=== PATIENT | male | born 1945 | race Caucasian/White ===

== ENCOUNTER → 2019-12-15 09:39 | Outpatient (BNVA) | payer MEDICARE, OTHER, SELFPAY | PROVIDERS: PCP Internal Medicine; Visit Provider Urology | DX: N40.1 Benign prostatic hyperplasia with lower urinary tract symptoms (principal); R39.15 Urgency of urination; R35.1 Nocturia; C67.9 Malignant neoplasm of bladder, unspecified; N52.9 Male erectile dysfunction, unspecified; Z79.899 Other long term (current) drug therapy; Z79.2 Long term (current) use of antibiotics | CPT/HCPCS: 99212 ==

== ENCOUNTER → 2020-01-12 08:54 | Outpatient (BNVA) | payer MEDICARE, OTHER, SELFPAY | PROVIDERS: Visit Provider Urology | DX: R35.1 Nocturia (principal) | CPT/HCPCS: Q3014 ==

== ENCOUNTER → 2020-04-06 08:51 | Outpatient (BNVA) | payer MEDICARE, OTHER, SELFPAY | PROVIDERS: PCP Internal Medicine; Visit Provider Urology | DX: C67.9 Malignant neoplasm of bladder, unspecified (principal); R39.15 Urgency of urination | CPT/HCPCS: 52000; 81002; 99212 ==

== ENCOUNTER → 2020-05-04 14:24 | Outpatient (BNVA) | payer MEDICARE, OTHER, SELFPAY | PROVIDERS: PCP Internal Medicine; Visit Provider Urology | DX: Z13.89 Encounter for screening for other disorder (principal) | CPT/HCPCS: Q3014 ==

== ENCOUNTER → 2020-07-12 14:51 | Outpatient (BNVA) | payer MEDICARE, OTHER, SELFPAY | PROVIDERS: PCP Internal Medicine; Visit Provider Urology | DX: C67.9 Malignant neoplasm of bladder, unspecified (principal); R35.1 Nocturia; N40.1 Benign prostatic hyperplasia with lower urinary tract symptoms; N39.41 Urge incontinence; R35.0 Frequency of micturition; N52.9 Male erectile dysfunction, unspecified | CPT/HCPCS: 99212 ==

== ENCOUNTER 2020-09-09 09:05 | Emergency (ER) | payer OTHER, MEDICARE, SELFPAY ==
--- NOTE | ~2020-09-09 | XR_ITS ---
EXAMINATION: XR CHEST CLINICAL INFORMATION: Cough. Pneumonia? COMPARISON: None TECHNIQUE: Frontal view of the chest was obtained. FINDINGS: Lungs are well expanded and clear. No pulmonary mass, consolidation or pleural effusion. No acute findings. Cardiac silhouette has normal size and contour. A calcific density that projects over the right anterior third rib might represent calcified pleural plaque. The visualized bones are intact. Multilevel osteophyte formation of the spine. No evidence of fracture or malalignment at the degenerated joints of the shoulders. XR/XR chest 1V IMPRESSION: No acute cardiopulmonary disease. No evidence of pneumonia.
[2020-09-09 09:20] VITALS: BP 138/52; PULSE 86; RESP 18; TEMP 36.8; O2SAT 97; BMI 30.5
--- NOTE | 2020-09-09 09:58 | ED_ITS ---
HPI - URI/Sore Throat General Chief Complaint: Upper Respiratory Symptoms Stated Complaint: Flu-like symptoms Time Seen by Provider: 09/09/20 09:33 Source: patient Mode of arrival: ambulatory Limitations: no limitations History of Present Illness HPI Narrative: Patient presents to the ED for coughing, low-grade fever, chills, and body aches since . Patient came to ED to be tested to see if he had COVID. Patient is vaccinated for COVID virus. Patient denies any chest pain or shortness of breath Related Data Home Medications Medication Instructions Recorded Confirmed azelastine 137 mcg (0.1 %) nasal 2 spray INTRANASAL BID 12/15/19 12/15/19 spray aerosol doxycycline hyclate 100 mg tablet 100 mg PO ONCE 12/15/19 12/15/19 lidocaine-prilocaine 2.5 %-2.5 % g TOPICAL 12/15/19 12/15/19 topical cream meloxicam 15 mg tablet 15 mg PO DAILY 12/15/19 12/15/19 aspirin 325 mg tablet,delayed 325 mg PO BID 07/12/20 release celecoxib 200 mg capsule 200 mg PO DAILY 07/12/20 pantoprazole 40 mg tablet,delayed 40 mg PO DAILY 07/12/20 release Previous Rx's Medication Instructions Recorded amitriptyline 10 mg tablet 10 mg PO BEDTIME 30 Days #30 tab 04/09/20 mirabegron 25 mg tablet,extended 25 mg PO DAILY 90 Days #90 tab 05/04/20 release 24 hr (Myrbetriq) benzonatate 100 mg capsule 100 mg PO TID PRN #15 cap 09/09/20 (Tessalon Shoes) prednisone 20 mg tablet 60 mg PO DAILY 5 Days #15 tab 09/09/20 Allergies Allergy/AdvReac Type Severity Reaction Status Date / Time No Known Allergies Allergy Verified 07/25/20 14:14 [No Known Allergies*] Review of Systems Review of Systems: Yes all other systems are reviewed and are negative Constitutional: Constitutional: Reports as per HPI, Reports no additional constitutional complaints, Reports anorexia, Reports body ache(s) and Reports fever(s) Eyes: Eyes: Reports as per HPI and Reports no additional eye complaints ENT: Reports system reviewed and no additional complaints, except as documented Cardiovascular: Cardiovascular: Reports as per HPI, Reports no additional cardiovascular complaints, Denies chest pain and Denies dyspnea Respiratory: Respiratory: Reports as per HPI, Reports no additional respiratory complaints, Reports cough and Denies dyspnea Gastrointestinal: Gastrointestinal: Reports as per HPI and Reports no additional gastrointestinal complaints Musculoskeletal: Musculoskeletal: Reports no additional musculoskeletal complaints and Reports as per HPI Integumentary/Breasts: Skin/Breast: Reports system reviewed and no additional complaints, except as docu and Reports as per HPI FORMERLY [facility], [facility] Past Medical History Medical History (Updated 09/09/20 @ 10:50 by BRANDI Corbett) Bladder cancer Surgical History (Updated 09/09/20 @ 09:21 by Ana Mooney) History of total right hip replacement Social History Social History (System 07/25/20 @ 14:14 by Kimmie Milligan) Advance Directives: No Advance Directives Information Provided: No Physical Exam Vital Signs: Vital Signs: Last Vital Signs Temp 98.3 F 09/09/20 09:20 Pulse 86 09/09/20 09:20 Resp 18 09/09/20 09:20 BP 138/52 L 09/09/20 09:20 Pulse Ox 97 09/09/20 09:20 Body Mass Index 30.5 Const: General: cooperative, healthy appearing, comfortable, no acute distress, well developed, alert, awake and Physically active Orientation/consciousness: patient oriented x3 HENMT: Head: Yes normal to inspection, Yes No palpable skull fracture present, Yes normocephalic and No atraumatic Ears: hearing grossly normal bilaterally, external ears normal, TM's normal bilaterally, TM normal on the right, TM normal on the left, EAC's normal, mastoids normal and no periauricular adenopathy General nose exam: Normal external nose present and Normal nares present Face and sinus: Yes normal facial exam, Yes sinuses nontender and Yes face symmetric Mouth: Normal oral and palatal mucosa present and lip normal Throat: Yes posterior oropharynx normal, Yes tonsils normal and Yes uvula midline Eyes: General: appearance normal, both eyes and all related structures Neck: Neck: Yes normal visual inspection, Yes full ROM, Yes no lymphadeno suellen, Yes no meningeal signs, Yes trachea midline, Yes supple and No tender Chest: Chest palpation & inspection: normal inspection of the chest and normal palpation of entire chest wall Resp: Effort & Inspection: normal respiratory effort and able to speak in complete sentences Auscultation: wheezes expiratory wheezes Cardio: Jugular venous distension: no JVD Heart sounds: S1 normal heart sound present and S2 normal heart sound present GI: Inspection: Yes normal to inspection and No abdominal wall ecchymosis Palpation (GI): Soft to palpation, not firm, nontender, no guarding and not rigid : General: No CVA tenderness and Yes no CVA tenderness Back/Spine/Pelvis: Back: no CVA tenderness, No CVA tenderness and No back tenderness Skin: General skin exam: no rashes or lesions noted and elasticity normal Neuro: General: patient oriented x3, gait normal, no meningeal signs and CN's II-XI intact bilaterally Cranial nerves: Yes CN's II-XII intact bilaterally Extrem: Other: Lower extremities negative for swelling, pitting edema, calf tenderness General: Yes normal to inspection and Yes full ROM Course Course Course Narrative: Patient sent for chest x-ray and COVID swab sent. Reevaluation(s) Reevaluation #1: COVID swab and flu swab came back negative. Chest x-ray normal. Patient informed to use his albuterol inhaler at home. Discharge with steroids due to mild wheezing. Time: 10:47 MDM - URI/Sore Throat MDM Narrative Medical decision making narrative: URI. Asthma Lab Data Labs: Lab Results 09/09/20 Range/Units 09:40 Coronavirus (PCR) NEGATIVE (Negative) Influenza Type A (PCR) NEGATIVE (Negative) Influenza Type B (PCR) NEGATIVE (Negative) RSV RNA Qual (PCR) NEGATIVE (Negative) Discharge Plan Discharge Clinical Impression: Upper respiratory infection, Asthma Patient Disposition: Home, Self-Care Instructions: Asthma (ED), Upper Respiratory Infection (ED) Additional Instructions: Your chest x-ray came back negative for pneumonia. You came back negative for the flu and COVID. Please use your albuterol inhaler as needed you will be discharged with cough medication and steroids. Return to ED for any chest pain, shortness of breath, swelling of lower extremities, calf pain, coughing up blood, weakness, dizziness, intractable fever, chills, or any other concerning symptoms. Prescriptions: New prednisone 20 mg tablet 60 mg PO DAILY 5 Days Qty: 15 RF: 0 benzonatate [Tessalon Perles] 100 mg capsule 100 mg PO TID PRN (Reason: cough) Qty: 15 RF: 0 No Action amitriptyline 10 mg tablet 10 mg PO BEDTIME 30 Days Qty: 30 RF: 6 lidocaine-prilocaine 2.5-2.5 % cream topical RF: 0 meloxicam 15 mg tablet 15 mg PO DAILY RF: 0 doxycycline hyclate 100 mg tablet 100 mg PO ONCE RF: 0 azelastine 137 mcg (0.1 %) aerosol,spray 2 spray intranasal BID RF: 0 Myrbetriq 25 mg tablet extended release 24 hr 25 mg PO DAILY 90 Days Qty: 90 RF: 1 Referrals: Benny Ho MD [Primary Care Provider] - 2 days (URI. Chest x-ray and COVID came back negative) Interventions: ED Discharge Assessment Last Done: 09/09/20 11:02 Discharge Date/Time: 09/09/20 11:02 Print Language: Monegasque
[2020-09-09 10:36] LABS: Influenza A PCR NEGATIVE (Negative); Influenza B PCR NEGATIVE (Negative); Resp Syncy Virus RNA Qual PCR NEGATIVE (Negative); SARS COV2 PCR INHOUSE NEGATIVE (Negative)
== END 2020-09-09 11:02 | disposition home or self-care (01) ==
PROVIDERS: Physician Assistant; Emergency Provider Student in an Organized Health Care Education/Training Program; PCP Internal Medicine
DX: J06.9 Acute upper respiratory infection, unspecified (principal); M79.10 Myalgia, unspecified site; J45.909 Unspecified asthma, uncomplicated; R50.9 Fever, unspecified; Z20.822 Contact with and (suspected) exposure to COVID-19; Z79.899 Other long term (current) drug therapy
CPT/HCPCS: 0241U; 36415; 71045; 99283

== ENCOUNTER 2020-10-05 12:43 | Outpatient (REF) | payer MEDICARE, OTHER, SELFPAY ==
[2020-10-05 17:17] LABS: Urine Cytology See Pathology rpt
== END 2020-10-05 12:44 | disposition home or self-care (01) ==
LOC: HO.LNP 12:43
PROVIDERS: PCP Internal Medicine; Visit Provider Urology
DX: C67.9 Malignant neoplasm of bladder, unspecified (principal); N40.1 Benign prostatic hyperplasia with lower urinary tract symptoms
CPT/HCPCS: 52000; 88112; 99212

== ENCOUNTER 2021-04-05 12:39 | Outpatient (REF) | payer MEDICARE, OTHER, SELFPAY ==
[2021-04-05 15:44] LABS: Urine Cytology See Pathology rpt
== END 2021-04-05 12:40 | disposition home or self-care (01) ==
LOC: HO.LAB 12:39
PROVIDERS: PCP Internal Medicine; Visit Provider Urology
DX: C67.9 Malignant neoplasm of bladder, unspecified (principal); N39.0 Urinary tract infection, site not specified; R39.15 Urgency of urination; N52.9 Male erectile dysfunction, unspecified; N40.1 Benign prostatic hyperplasia with lower urinary tract symptoms
CPT/HCPCS: 52000; 87086; 87088; 87186; 88112; 99212

== ENCOUNTER → 2021-04-12 11:20 | Outpatient (BNVA) | payer OTHER, MEDICARE, SELFPAY | PROVIDERS: PCP Internal Medicine; Visit Provider Urology ==

== ENCOUNTER 2021-05-06 11:40 | Day surgery (SDC) | payer OTHER, SELFPAY ==
[2021-05-01 11:03] VITALS: BMI 30.5
--- NOTE | 2021-05-03 12:08 | P.CONAN_ITS ---
Documented by User: Chichi Albarran NP 05/03/21 12:09 HPI - Anesthesia Eval Consult details Narrative: 75yo M for Cystoscopy & Bladder Biopsy PMFSH Active Problems Active Problems: All Active Problems (Updated 05/01/21 @ 11:01 by Kathi Olson RN) BPH loc w urin obs/LUTS (Acute) Urinary urgency (Acute) Nocturia (Acute) Erectile dysfunction (Acute) Bladder cancer (Acute) Past Medical History Medical History Arthritis Asthma Bladder cancer COPD (chronic obstructive pulmonary disease) COVID-19 vaccine series completed GERD (gastroesophageal reflux disease) Hepatitis History of malaria History of post traumatic stress disorder Sleep apnea Venous insufficiency Surgical History Surgical History H/O colonoscopy Hx of bilateral hip replacements Hx of bladder repair surgery Hx of cystoscopy Social History Social History Are you a primary care team coordinator scheduler to a significant other at home: No Patient Tobacco Use Status: Never used Tobacco Use of substances other than those prescribed or required for medical reasons: No Have you been hit, kicked, punched, or otherwise hurt by someone within the past year? If so, by whom?: No Are you DNR?: No Advance Directives Information Provided: Yes (will bring copy DOS) Advance Directives on File: No Recently lost weight without trying: No Eating poorly because of decreased appetite: No Nutrition Risks: Surgical patient >75years Poor oral hygiene: No (fixed upper bridge) Meds Allergies Allergy/AdvReac Type Severity Reaction Status Date / Time No Known Allergies Allergy Verified 04/05/21 12:56 [No Known Allergies*] Home Medications Medication Instructions Recorded Confirmed Last Taken Type azelastine 137 mcg (0.1 %) nasal 2 spray INTRANASAL BID 12/15/19 05/01/21 Unknown History spray aerosol lidocaine-prilocaine 2.5 %-2.5 % g TOPICAL 12/15/19 12/15/19 Unknown History topical cream meloxicam 15 mg tablet 15 mg PO DAILY 12/15/19 05/01/21 Unknown History acetaminophen 500 mg tablet 1,000 mg PO Q6H PRN 05/01/21 05/01/21 Unknown History budesonide-formoterol HFA 160 1 puff INHALATION BID 05/01/21 05/01/21 05/06/21 07:00 History mcg-4.5 mcg/actuation aerosol inhaler (Symbicort) omeprazole 20 mg tablet,delayed 20 mg PO DAILY PRN 05/01/21 05/01/21 Unknown History release Fish Oil 2,800 mg PO DAILY 05/06/21 05/06/21 Unknown History Glucosamine 3,000 mg PO DAILY 05/06/21 05/06/21 Unknown History cholecalciferol (vitamin D3) 50 50 mcg PO DAILY 05/06/21 05/06/21 Unknown History mcg (2,000 unit) capsule (Vitamin D3) coenzyme Q10 100 mg capsule 300 mg PO DAILY 05/06/21 05/06/21 Unknown History (CoQ-10) Exam Exam Date and Time: May 03, 2021 1208 Height,Weight and Vital Signs: Height 6 ft Weight 102.058 kg Assessment and Plan Assessment Anesthesia Assessment: Chart Reviewed Documented by User: Ana Mak MD 05/06/21 12:17 [facility] Past Medical History Medical History Arthritis Asthma Bladder cancer COPD (chronic obstructive pulmonary disease) COVID-19 vaccine series completed GERD (gastroesophageal reflux disease) Hepatitis History of malaria History of post traumatic stress disorder Sleep apnea Venous insufficiency Family History Family history of problems with anesthesia: No Surgical History Surgical History H/O colonoscopy Hx of bilateral hip replacements Hx of bladder repair surgery Hx of cystoscopy History of Problems with Anesthesia: No Social History Social History Are you a primary care team coordinator scheduler to a significant other at home: No Patient Tobacco Use Status: Never used Tobacco Use of substances other than those prescribed or required for medical reasons: No Have you been hit, kicked, punched, or otherwise hurt by someone within the past year? If so, by whom?: No Are you DNR?: No Advance Directives Information Provided: Yes (will bring copy DOS) Advance Directives on File: No Recently lost weight without trying: No Eating poorly because of decreased appetite: No Nutrition Risks: Surgical patient >75years Poor oral hygiene: No (fixed upper bridge) Meds Allergies Allergy/AdvReac Type Severity Reaction Status Date / Time No Known Allergies Allergy Verified 04/05/21 12:56 [No Known Allergies*] Home Medications Medication Instructions Recorded Confirmed Last Taken Type azelastine 137 mcg (0.1 %) nasal 2 spray INTRANASAL BID 12/15/19 05/01/21 Unknown History spray aerosol lidocaine-prilocaine 2.5 %-2.5 % g TOPICAL 12/15/19 12/15/19 Unknown History topical cream meloxicam 15 mg tablet 15 mg PO DAILY 12/15/19 05/01/21 Unknown History acetaminophen 500 mg tablet 1,000 mg PO Q6H PRN 05/01/21 05/01/21 Unknown History budesonide-formoterol HFA 160 1 puff INHALATION BID 05/01/21 05/01/21 05/06/21 07:00 History mcg-4.5 mcg/actuation aerosol inhaler (Symbicort) omeprazole 20 mg tablet,delayed 20 mg PO DAILY PRN 05/01/21 05/01/21 Unknown History release Fish Oil 2,800 mg PO DAILY 05/06/21 05/06/21 Unknown History Glucosamine 3,000 mg PO DAILY 05/06/21 05/06/21 Unknown History cholecalciferol (vitamin D3) 50 50 mcg PO DAILY 05/06/21 05/06/21 Unknown History mcg (2,000 unit) capsule (Vitamin D3) coenzyme Q10 100 mg capsule 300 mg PO DAILY 05/06/21 05/06/21 Unknown History (CoQ-10) Exam Airway Mallampati Class: II (Upper perm bridge) TM Dist: >3cm Neck ROM: Full Heart: rrr Lungs: cta Assessment and Plan Assessment Anesthesia Assessment: Anesthesia Plan Discussed and Chart Reviewed Final Anesthetic Review Family History of Problems with Anesthesia: No History of Problems with Anesthesia: No NPO: Yes ASA Class: III Final Preanesthetic Review: No Changes in Pt Med Stat, Meds/Allgs Chart Reviewed and Consent Obtained/Reviewed Patient Risk: Intermediate Procedure Risk: Intermediate Anesthetic Plan Anesthetic Plan: GA Disposition: Standard PACU
[2021-05-06 11:59] VITALS: BP 134/70; PULSE 76; RESP 16; TEMP 36.7; O2SAT 94
[2021-05-06] MEDS: levoFLOXacin 500 MG TABLET PO (12:04)
[2021-05-06] MEDS: Lactated Ringers 1,000 ML 100 ML IVCONT (12:13)
--- NOTE | 2021-05-06 12:13 | PC.NURSE ---
md grijalva aware of patients holter monitor removed.
--- NOTE | 2021-05-06 12:52 | P.HPSUR_ITS ---
Pre-Procedural Eval Section A Date of Service: 05/06/21 The patient is an INPATIENT: No Changes since office visit: No Cold of Flu in the past 2 weeks, No New Medical Problems, No Changes in Medication and No Patient answered all questions The History & Physical has been completed within 30 days and I have reviewed it.: No Section B Chief Complaint: malignant neoplasm of bladder Details of Present Illness: recurrent superficial disease by prior resection Relevant Family History (Specify if Yes): No Relevant Social History: None Present Medications: see Short Stay Collaborative assessment Medical History: Significant History History of Previous Operations: Relevant previous surgery/procedure and date(s) Allergies: Allergies Allergy/AdvReac Type Severity Reaction Status Date / Time No Known Allergies Allergy Verified 04/05/21 12:56 [No Known Allergies*] Review of Systems Sugical H&P ROS: Negative: Constitution, Cardiovascular, Respiratory, Neur ological, Psychiatric, Hem-Onc, Allergic/Immunologic, Gastrointestinal, Genitourinary, Musculoskeletal, Integumentary, Endocrine and Eyes/Ears/Nose/Throat Exam Surgical H&P Exam: Normal: HEENT, Normal: Heart, Normal: Lungs, Normal: Extremities, Normal: Abdomen, Normal: Skin and Normal: Neurological Plan Diagnosis/Plan: Unchanged ( cystoscopy, bladder biopsy fulguration) I have reviewed the history and physical and performed a pertinent physical examination on my patient. No changes have occurred unless specified.
[2021-05-06 12:55] VITALS: BP 111/57; PULSE 72; RESP 16; TEMP 36.5; O2SAT 93
--- NOTE | 2021-05-06 12:55 | W.PM.OPN ---
Operative Note Operative Note Date of Service: 05/06/21 Narrative: PreOperative Diagnosis: bladder cancer Post Operative Diagnosis: bladder cancer Procedure: cystoscopy, bladder biopsy and fulguration Surgeon: Dr Hong Hester Anesthesia: general Indications for procedure: known superficial bladder cancer. On cystoscopy was seen to have an area approximately 3 cm of change mucosa close to prior TURBT site Procedure: After informed consent was verified the patient was brought to the operating room and placed in a supine position. anesthesia was administered per protocol. the patient was placed in a modified dorsal lithotomy position and prepped and draped in a sterile fashion. Safety pause time-out was performed. Antibiotics were confirmed. cystoscopy was performed. No abnormality noted of the anterior posterior urethra superficial change seen on mucosa by prior TURBT resection site on left sidewall. Biopsies were taken. Fulguration was performed over an area approximately 3 cm in diameter. The patient tolerated the procedure well. They were extubated in the operating room and transferred in stable condition to the recovery area. Pathology: Bladder biopsies Drains: none
[2021-05-06 13:10] VITALS: BP 111/54; PULSE 70; RESP 16; TEMP 36.3; O2SAT 94
== END 2021-05-06 14:01 | disposition home or self-care (01) ==
PROVIDERS: PCP Internal Medicine; Visit Provider Urology
PROC: (CPT 52235; principal; 2021-05-06 13:40)
DX: C67.9 Malignant neoplasm of bladder, unspecified (principal); N40.1 Benign prostatic hyperplasia with lower urinary tract symptoms; N32.81 Overactive bladder; R39.15 Urgency of urination; N52.9 Male erectile dysfunction, unspecified; J44.9 Chronic obstructive pulmonary disease, unspecified; G47.30 Sleep apnea, unspecified; K21.9 Gastro-esophageal reflux disease without esophagitis; Z79.51 Long term (current) use of inhaled steroids; Z79.899 Other long term (current) drug therapy; Z77.098 Contact with and (suspected) exposure to other hazardous, chiefly nonmedicinal, chemicals
CPT/HCPCS: 52235; 88305; J2250; J3010

== ENCOUNTER → 2021-05-15 12:41 | Outpatient (BNVA) | payer OTHER, SELFPAY | PROVIDERS: PCP Internal Medicine; Visit Provider Urology | DX: Z13.89 Encounter for screening for other disorder (principal) ==

== ENCOUNTER 2021-08-07 14:56 | Outpatient (REF) | payer OTHER, SELFPAY ==
[2021-08-07 16:32] LABS: Urine Cytology See Pathology rpt
== END 2021-08-07 14:57 | disposition home or self-care (01) ==
LOC: HO.LAB 14:56
PROVIDERS: Visit Provider Urology
DX: C67.9 Malignant neoplasm of bladder, unspecified (principal); N40.1 Benign prostatic hyperplasia with lower urinary tract symptoms; N52.9 Male erectile dysfunction, unspecified; R39.15 Urgency of urination
CPT/HCPCS: 52000; 88112; 99212

== ENCOUNTER 2021-11-07 10:04 | Outpatient (REF) | payer OTHER, SELFPAY ==
[2021-11-07 16:56] LABS: Urine Cytology See Pathology rpt
== END 2021-11-07 10:05 | disposition home or self-care (01) ==
LOC: HO.LAB 10:04
PROVIDERS: Visit Provider Urology
DX: C67.9 Malignant neoplasm of bladder, unspecified (principal)
CPT/HCPCS: 52000; 88112

== ENCOUNTER → 2022-02-05 08:29 | Outpatient (BNVA) | payer OTHER, SELFPAY | PROVIDERS: PCP Internal Medicine; Visit Provider Urology | DX: C67.9 Malignant neoplasm of bladder, unspecified (principal); N40.1 Benign prostatic hyperplasia with lower urinary tract symptoms; N13.8 Other obstructive and reflux uropathy; N52.9 Male erectile dysfunction, unspecified | CPT/HCPCS: 52000 ==

== ENCOUNTER 2022-05-06 09:28 | Outpatient (REF) | payer OTHER, SELFPAY ==
[2022-05-06 17:48] LABS: Urine Cytology See Pathology rpt
== END 2022-05-06 09:29 | disposition home or self-care (01) ==
LOC: HO.LAB 09:28
PROVIDERS: PCP Internal Medicine; Visit Provider Urology
DX: C67.9 Malignant neoplasm of bladder, unspecified (principal); N40.1 Benign prostatic hyperplasia with lower urinary tract symptoms; N52.9 Male erectile dysfunction, unspecified; Z77.29 Contact with and (suspected) exposure to other hazardous substances
CPT/HCPCS: 52000; 88112; 99212

== ENCOUNTER 2022-07-05 11:05 | Emergency (ER) | payer OTHER, SELFPAY ==
--- NOTE | ~2022-07-05 | CT_ITS ---
EXAMINATION: CT HEAD WITHOUT CONTRAST CLINICAL INFORMATION: New onset dizziness COMPARISON: None available. TECHNIQUE: Contiguous axial imaging was performed from the skull base to vertex without intravenous administration of contrast. This CT examination was performed using dose optimization techniques as appropriate, variously including the following: *Automated exposure control *Adjustment of mA and/or kV according to patient size (this includes techniques or standardized protocols for targeted exams where dose is matched to indication/reason for exam; i.e. extremities or head) *Use of iterative reconstruction technique DLP: 772 mGy-cm FINDINGS: There is no evidence of acute intracranial hemorrhage or edematous territorial infarction. No abnormal mass effect or midline shift is seen. Davis to white matter differentiation is well preserved. No pathological extra-axial fluid collections are identified. The ventricles are normal in size. No abnormal attenuation in the brain parenchyma. No acute calvarial fracture.. Paranasal sinuses and mastoid air cells are well-aerated. CT/CT head/brain wo IV con IMPRESSION: No CT evidence of acute intracranial hemorrhage or edematous large vessel territorial infarction. Etiology of patient's symptoms has not been determined by noncontrast CT.
--- NOTE | 2022-07-05 11:15 | ECG_ITS ---
Test Reason : dizziness Blood Pressure : / mmHG Vent. Rate : 053 BPM Atrial Rate : 053 BPM P-R Int : 178 ms QRS Dur : 098 ms QT Int : 412 ms P-R-T Axes : 041 -09 039 degrees QTc Int : 386 ms Sinus bradycardia Otherwise normal ECG When compared with ECG of 17-DEC-2001 08:09, No significant change was found Referred By: Shadi Buck Electronically Signed By:BERNICE PORTER
--- NOTE | 2022-07-05 11:15 | ED_ITS ---
HPI - Dizziness General Chief Complaint: Stroke Stated Complaint: Numbness/tingling in hands, dizzy per EMS Time Seen by Provider: 07/05/22 11:14 Source: patient Mode of arrival: EMS Limitations: no limitations History of Present Illness HPI Narrative: Patient with history of bladder cancer otherwise healthy comes for sudden onset of vertiginous feeling started about an hour prior to arrival. Patient feels everything is spinning associated with nausea and poor balance and mild headache no fever no chills no speech problem no tremors or shaking this or focal weakness Related Data Home Medications Medication Instructions Recorded Confirmed azelastine 137 mcg (0.1 %) nasal 2 spray intranasal BID 12/15/19 12/26/21 spray aerosol meloxicam 15 mg tablet 15 mg PO DAILY 12/15/19 12/26/21 acetaminophen 500 mg tablet 1,000 mg PO Q6H PRN Pain 05/01/21 12/26/21 budesonide-formoterol HFA 160 1 puff inhalation BID 05/01/21 12/26/21 mcg-4.5 mcg/actuation aerosol inhaler (Symbicort) omeprazole 20 mg tablet,delayed 20 mg PO DAILY PRN Heartburn 05/01/21 12/26/21 release Fish Oil 2,800 mg PO DAILY 05/06/21 12/26/21 Glucosamine 3,000 mg PO DAILY 05/06/21 12/26/21 cholecalciferol (vitamin D3) 50 50 mcg PO DAILY 05/06/21 12/26/21 mcg (2,000 unit) capsule (Vitamin D3) coenzyme Q10 100 mg capsule 300 mg PO DAILY 05/06/21 12/26/21 (CoQ-10) metoprolol succinate 25 mg 25 mg PO DAILY 08/07/21 12/26/21 tablet,extended release 24 hr Previous Rx's Medication Instructions Recorded sildenafil 100 mg tablet 100 mg PO DAILY PRN sexual 04/05/21 activity 90 days #12 tabs ciprofloxacin HCl 500 mg tablet 500 mg PO BID 5 days #10 tabs 07/02/22 meclizine 25 mg tablet 25 mg PO TID PRN dizziness #20 tabs 07/05/22 Allergies Allergy/AdvReac Type Severity Reaction Status Date / Time No Known Allergies Allergy Verified 07/05/22 11:56 [No Known Allergies*] Review of Systems Review of Systems: Yes all other systems are reviewed and are negative PMFSH Past Medical History Medical History Arthritis Asthma Bladder cancer COPD (chronic obstructive pulmonary disease) COVID-19 vaccine series completed GERD (gastroesophageal reflux disease) Hepatitis History of malaria History of post traumatic stress disorder Sleep apnea Venous insufficiency Surgical History H/O colonoscopy Hx of bilateral hip replacements Hx of bladder repair surgery Hx of cystoscopy Social History Social History Are you a primary healthcare social worker to a significant other at home: No Alcohol intake: current Alcohol intake frequency: holidays/special occasions only Alcohol type: beer Patient Tobacco Use Status: Never used Tobacco Smoked in Last 30 Days: No Use of substances other than those prescribed or required for medical reasons: No Advance Directives: No Advance Directives Information Provided: Yes Physical Exam Vital Signs: Vital Signs: Last Vital Signs Temp 97.7 F 07/05/22 13:24 Pulse 75 07/05/22 13:24 Resp 16 07/05/22 13:24 BP 139/82 07/05/22 13:24 Pulse Ox 97 07/05/22 13:24 O2 Del Method Room Air 07/05/22 13:24 BMI result Body Mass Index 33.3 Appearance: Alert. Oriented X3. No acute distress. Eyes: PERRLA, No Nystagmus increased dizziness on movements of the head ENT: Pharynx normal. Oral Mucosa moist Neck: Normal inspection. Neck supple. CVS: Normal heart rate and rhythm. Pulses normal. Respiratory: No respiratory distress. Equal air entry bilateral, no wheezing/rales/rhonchi Abdomen: Soft and nontender. Bowel sounds are present, no mass palpable, no CVA tenderness Skin: Skin warm and dry. Normal skin color. Normal skin turgor. Extremities: No lower extremity edema. No calf tenderness Neuro: Oriented X 3. No motor deficit. No sensory deficit.No cerebellar signs , cranial nerves II-XII intact NIH Stroke Scale Internal: Initial- Upon Arrival Level of Consciousness: Alert Level of Consciousness Questions: Answers both questions correctly Level of Consciousness Commands: Performs both tasks correctly Best Gaze: Normal Visual: No visual loss Facial Palsy: Normal Motor Arm (Right): No drift Motor Arm (Left): No drift Motor Leg (Right): No drift Motor Leg (Left): No drift Limb Ataxia: Absent Sensory: Normal Best Language: No aphasia Dysarthia: Normal Extinction and Inattention: No abnormality Score: 0 Medications Administered Discontinued Medications Generic Name Dose Route Start Last Admin Trade Name Freq PRN Reason Stop Dose Admin Sodium Chloride 1,000 mls @ 999 mls/hr 07/05/22 11:15 07/05/22 13:17 Ns IV 07/05/22 12:15 Infused .Q1H1M ONE Infusion Lorazepam 1 mg 07/05/22 12:22 07/05/22 13:16 Lorazepam 2 Mg/Ml Vial IVPUSH 07/05/22 12:23 1 mg ONCE ONE Administration Meclizine HCl 50 mg 07/05/22 11:16 07/05/22 11:52 Meclizine Hcl 25 Mg Tablet PO 07/05/22 11:17 50 mg ONCE ONE Administration Medical Decision Making Medical Decision Making MDM Narrative: Patient likely with benign positional vertigo no signs of. 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 07/05/22 11:46 07/05/22 11:46 Labs: Lab Results 07/05/22 07/05/22 07/05/22 Range/Units 11:33 11:46 11:46 WBC 10.2 (4.8-10.8) X10*3/uL RBC 5.17 (4.60-5.80) X10*6/uL Hgb 16.1 (14.0-18.0) g/dl Hct 48.2 (42.0-52.0) % MCV 93.2 (80.0-98.0) fL MCH 31.1 (27.0-33.0) pg MCHC 33.4 (31.0-36.0) g/dl RDW 13.6 (11.0-16.0) % Plt Count 229 (160-400) X10*3/uL MPV 8.8 L (9.4-12.4) fL Immature Gran % (Auto) 0.6 H (0.0-0.4) % Neut % (Auto) 76.6 H (45-73) % Lymph % (Auto) 13.6 L (20-40) % [place] % (Auto) 8.0 (2-11) % Eos % (Auto) 0.9 (0-4) % Baso % (Auto) 0.3 (0-2) % Lymph # (Auto) 1.4 (1.2-4.9) X10*3/uL [place] # (Auto) 0.8 (0.1-1.2) X10*3/uL Eos # (Auto) 0.1 (0.0-0.4) X10*3/uL Baso # (Auto) 0.0 (0.0-0.2) X10*3/uL Abs Immat Gran (auto) 0.06 H (0.00-0.03) X10*3/uL Absolute Neuts (auto) 7.8 (2.0-8.3) x10*3/uL Absolute Nucleated RBC 0.000 (0.0-0.012) X10*3/uL Nucleated RBC % (auto) 0.0 (0.0-0.2) /100WBC Sodium 140 (135-145) mmol/L Potassium 4.8 (3.3-5.1) mmol/L Chloride 107 (96-108) mmol/L Carbon Dioxide 25 (22-29) mmol/L Anion Gap 13 (12-20) BUN 28 H (9-16) mg/dL Creatinine 0.95 (0.5-1.4) mg/dL Estim Creat Clear Calc 79.1 Estimated GFR > 60 POC Glucose 104 (60-115) mg/dL Random Glucose 98 (60-115) mg/dL Calcium 9.5 (8.4-10.2) mg/dL Magnesium 2.2 (1.6-2.6) mg/dL Total Bilirubin 1.1 H (0.0-1.0) mg/dL AST 23 (5-37) U/L ALT 33 (0-40) U/L Alkaline Phosphatase 107 (39-117) U/L Total Protein 7.1 (6.5-8.0) g/dL Albumin 4.2 (3.5-5.0) g/dL Discharge Plan Discharge Clinical Impression: Benign paroxysmal positional vertigo Patient Disposition: Home, Self-Care Instructions: Benign Paroxysmal Positional Vertigo (ED) Additional Instructions: Care and cautions as advised Meclizine 1 tablet every 8 hours as needed Drink plenty of fluids and follow with PCP Prescriptions: New meclizine 25 mg tablet 25 mg PO TID PRN (Reason: dizziness) Qty: 20 0RF No Action ciprofloxacin HCl 500 mg tablet 500 mg PO BID 5 Days Qty: 10 0RF budesonide-formoterol [Symbicort] 160-4.5 mcg/actuation Hfa Aerosol Inhaler 1 puff INHALATION BID omeprazole 20 mg Tablet,Delayed Release (Dr/Ec) 20 mg PO DAILY PRN (Reason: Heartburn) acetaminophen 500 mg Tablet 1,000 mg PO Q6H PRN (Reason: Pain) coenzyme Q10 [CoQ-10] 100 mg Capsule 300 mg PO DAILY cholecalciferol (vitamin D3) [Vitamin D3] 50 mcg (2,000 unit) Capsule 50 mcg PO DAILY Fish Oil 2,800 mg PO DAILY Glucosamine 3,000 mg PO DAILY meloxicam 15 mg tablet 15 mg PO DAILY azelastine 137 mcg (0.1 %) aerosol,spray 2 spray intranasal BID sildenafil 100 mg tablet 100 mg PO DAILY PRN (Reason: sexual activity) 90 Days Qty: 12 1RF Rx Instructions: administer 60 minutes before intended activity metoprolol succinate 25 mg tablet extended release 24 hr 25 mg PO DAILY Interventions: ED Discharge Assessment Last Done: 07/05/22 13:54 Discharge Date/Time: 07/05/22 13:59
[2022-07-05 11:17] VITALS: BP 141/71; PULSE 60; O2SAT 96; BMI 33.3
[2022-07-05 11:36] LABS: Glucose, Whole Blood 104 mg/dL (60-115)
[2022-07-05 11:49] LABS: MANUAL DIFF FLAG NO
[2022-07-05 11:50] LABS: Basophils Percent Auto 0.3 % (0-2); Eosinophils Absolute Auto 0.1 X10*3/uL (0.0-0.4); Eosinophils Percent Auto 0.9 % (0-4); Hematocrit 48.2 % (42.0-52.0); Hemoglobin 16.1 g/dl (14.0-18.0); Imm Gran Abs Auto 0.06 X10*3/uL (0.00-0.03); Imm Gran Pct Auto 0.6 % (0.0-0.4); Lymphocytes Absolute Auto 1.4 X10*3/uL (1.2-4.9); Lymphocytes Percent Auto 13.6 % (20-40); Mean Corpuscular HGB Conc 33.4 g/dl (31.0-36.0); Mean Corpuscular Hemoglobin 31.1 pg (27.0-33.0); Mean Corpuscular Volume 93.2 fL (80.0-98.0); Mean Platelet Volume 8.8 fL (9.4-12.4); Monocytes Absolute Auto 0.8 X10*3/uL (0.1-1.2); Neutrophils Absolute Auto 7.8 x10*3/uL (2.0-8.3); Neutrophils Percent Auto 76.6 % (45-73); Platelet Count 229 X10*3/uL (160-400); Red Blood Count 5.17 X10*6/uL (4.60-5.80); Red Cell Distribution Width 13.6 % (11.0-16.0); White Blood Count 10.2 X10*3/uL (4.8-10.8)
[2022-07-05] MEDS: 0.9 % Sodium Chloride 1,000 ML 999 ML IV (11:50)
[2022-07-05] MEDS: Meclizine HCl 25 MG TABLET 50 MG PO (11:52)
[2022-07-05 12:20] LABS: Alanine Aminotransferase 33 U/L (0-40); Albumin Level 4.2 g/dL (3.5-5.0); Alkaline Phosphatase 107 U/L (39-117); Anion Gap 13 (12-20); Aspartate Amino Transferase 23 U/L (5-37); Bilirubin Total 1.1 mg/dL (0.0-1.0); Blood Urea Nitrogen 28 mg/dL (9-16); Calcium 9.5 mg/dL (8.4-10.2); Carbon Dioxide 25 mmol/L (22-29); Chloride 107 mmol/L (96-108); Creatinine Clr Calc Pharmacy 79.1; Estimated Glomerular Filt Rate > 60; Glucose Random 98 mg/dL (60-115); Magnesium 2.2 mg/dL (1.6-2.6); Potassium 4.8 mmol/L (3.3-5.1); Sodium 140 mmol/L (135-145); Total Protein 7.1 g/dL (6.5-8.0)
[2022-07-05] MEDS: LORazepam 2 MG/ML VIAL 1 MG IVPUSH (13:16)
[2022-07-05 13:24] VITALS: BP 139/82; PULSE 75; RESP 16; TEMP 36.5; O2SAT 97
--- NOTE | 2022-07-05 13:32 | PC.NURSE ---
Does not need a swallow eval per MD
--- NOTE | 2022-07-05 13:38 | PC.NURSE ---
patient ambulated well with tech and only stated that he felt a little dizzy reported to
== END 2022-07-05 13:59 | disposition home or self-care (01) ==
PROVIDERS: Emergency Provider Internal Medicine
DX: H81.10 Benign paroxysmal vertigo, unspecified ear (principal); Z79.899 Other long term (current) drug therapy
CPT/HCPCS: 36415; 70450; 80053; 82947; 83735; 85025; 93005; 96361; 96374; 99284; 99285; J2060

== ENCOUNTER 2022-10-27 06:04 | Day surgery (SDC) | payer OTHER, SELFPAY ==
[2022-07-31 14:01] VITALS: BMI 32.5
[2022-10-27] VITALS (7 sets, daily range): BP systolic 124–142; BP diastolic 55–81; PULSE 68–80; RESP 14–18; TEMP 36.1–36.6; O2SAT 94–96
[2022-10-27] MEDS: Albuterol Sulfate (0.083%) 2.5 MG/3 ML VIAL.NEB INHALE (07:12)
[2022-10-27] MEDS: Lactated Ringers 1,000 ML 100 ML IVCONT (07:24)
--- NOTE | 2022-10-27 07:29 | P.CONAN_ITS ---
HPI - Anesthesia Eval Consult details Narrative: for laser prostate PMFSH Active Problems Active Problems: All Active Problems (Updated 07/06/22 @ 00:00 by Background Rosa) Recurrent UTI (Acute) BPH loc w urin obs/LUTS (Acute) Urinary urgency (Acute) Nocturia (Acute) Erectile dysfunction (Acute) Bladder cancer (Acute) Past Medical History Medical History Arthritis Asthma Bladder cancer COPD (chronic obstructive pulmonary disease) COVID-19 vaccine series completed GERD (gastroesophageal reflux disease) Hepatitis History of malaria History of post traumatic stress disorder Sleep apnea Venous insufficiency Family History Family history of problems with anesthesia: No Surgical History Surgical History H/O colonoscopy Hx of bilateral hip replacements Hx of bladder repair surgery Hx of cystoscopy History of Problems with Anesthesia: No Social History Social History Are you a primary child care centre director to a significant other at home: No Do you presently have visiting nurse or other home services: No Alcohol intake: current Alcohol intake frequency: holidays/special occasions only Alcohol type: beer Patient Tobacco Use Status: Never used Tobacco Have you been hit, kicked, punched, or otherwise hurt by someone within the past year? If so, by whom?: No Are you DNR?: No Advance Directives: No Advance Directives Information Provided: Yes Recently lost weight without trying: No Eating poorly because of decreased appetite: No Nutrition Risks: No Nutritional Risk Poor oral hygiene: No Meds Allergies Allergy/AdvReac Type Severity Reaction Status Date / Time No Known Allergies Allergy Verified 07/05/22 11:56 [No Known Allergies*] Active Medications: Current Medications Lactated Ringer's (Lr) 1,000 mls @ 100 mls/hr IVCONT .Q10H NATALY Last Admin: 10/27/22 07:24 Dose: 100 mls/hr Home Medications Medication Instructions Recorded Confirmed Last Taken Type azelastine 137 mcg (0.1 %) nasal 2 spray intranasal BID 12/15/19 12/26/21 Unknown History spray aerosol meloxicam 15 mg tablet 15 mg PO DAILY 12/15/19 12/26/21 Unknown History acetaminophen 500 mg tablet 1,000 mg PO Q6H PRN Pain 05/01/21 12/26/21 Unknown History budesonide-formoterol HFA 160 1 puff inhalation BID 05/01/21 12/26/21 05/06/21 07:00 History mcg-4.5 mcg/actuation aerosol inhaler (Symbicort) omeprazole 20 mg tablet,delayed 20 mg PO DAILY PRN Heartburn 05/01/21 12/26/21 Unknown History release Fish Oil 2,800 mg PO DAILY 05/06/21 12/26/21 Unknown History Glucosamine 3,000 mg PO DAILY 05/06/21 12/26/21 Unknown History cholecalciferol (vitamin D3) 50 50 mcg PO DAILY 05/06/21 12/26/21 Unknown History mcg (2,000 unit) capsule (Vitamin D3) coenzyme Q10 100 mg capsule 300 mg PO DAILY 05/06/21 12/26/21 Unknown History (CoQ-10) metoprolol succinate 25 mg 25 mg PO DAILY 08/07/21 12/26/21 Unknown History tablet,extended release 24 hr Exam Exam Date and Time: October 27, 2022 0729 Height,Weight and Vital Signs: Height 5 ft 10.5 in Weight 104.326 kg Last Vital Signs Temp 97.2 F 10/27/22 06:14 Pulse 68 10/27/22 06:14 Resp 18 10/27/22 06:14 BP 135/70 10/27/22 06:14 Pulse Ox 94 10/27/22 06:14 O2 Del Method Room Air 10/27/22 06:14 Airway Mallampati Class: II TM Dist: >3cm Neck ROM: Full Loose/Missing/Broken Teeth: No Heart: ok Lungs: ok Assessment and Plan Assessment Anesthesia Assessment: Anesthesia Plan Discussed and Chart Reviewed Final Anesthetic Review Family History of Problems with Anesthesia: No History of Problems with Anesthesia: No NPO: Yes ASA Class: III Final Preanesthetic Review: No Changes in Pt Med Stat, Meds/Allgs Chart Reviewed, Consent Obtained/Reviewed and Anes Risks/Benef Reviewed Patient Risk: Intermediate Procedure Risk: Low Anesthetic Plan Anesthetic Plan: GA and Agree w/ Assess. and Plan Disposition: Standard PACU
--- NOTE | 2022-10-27 07:49 | MHC.SHP ---
Pre-Procedural Eval Section A Date of Service: 10/27/22 The patient is an INPATIENT: No Changes since office visit: No Cold of Flu in the past 2 weeks, No New Medical Problems, No Changes in Medication and No Patient answered all questions The History & Physical has been completed within 30 days and I have reviewed it.: Yes Section B Chief Complaint: Benign prostatic hyperplasia lower urinary tract Details of Present Illness: BPH and CIS Allergies: Allergies Allergy/AdvReac Type Severity Reaction Status Date / Time No Known Allergies Allergy Verified 07/05/22 11:56 [No Known Allergies*] Review of Systems Sugical H&P ROS: Negative: Constitution, Cardiovascular, Respiratory, Neurological, Psychiatric, Hem-Onc, Allergic/Immunologic, Gastrointestinal, Genitourinary, Musculoskeletal, Integumentary, Endocrine and Eyes/Ears/Nose/Throat Exam Surgical H&P Exam: Normal: HEENT, Normal: Heart, Normal: Lungs, Normal: Extremities, Normal: Abdomen, Normal: Skin and Normal: Neurological Plan Diagnosis/Plan: Unchanged (Laser procedure prostate) I have reviewed the history and physical and performed a pertinent physical examination on my patient. No changes have occurred unless specified. Time Spent With Patient Time: Total time managing care of this patient today ____ minutes.
--- NOTE | 2022-10-27 08:48 | W.PM.OPN ---
Operative Note Operative Note Date of Service: 10/27/22 Narrative: PreOperative Diagnosis: recurrent Bladder outlet obstruction Post Operative Diagnosis: recurent Bladder outlet obstruction Procedure: GreenLight Laser Enucleation of the prostate Surgeon: Dr Hong Hester Anesthesia: General Indications for procedure: recurrent BPH History of bladder outlet obstruction. Treated with alpha-khris and other medications. Still with symptoms. On cystoscopy in office has [trilobar prostate] [tight bladder neck]. Recommendation for prostate procedure with laser enucleation of prostate. Risks and benefits have been discussed. Focus was placed on development of retrograde ejaculation which is a normal part of this procedure. Procedure: After informed consent was verified the patient was brought to the operating room and placed in a supine position. Anesthesia was administered per protocol. Patient was placed in modified dorsal lithotomy position and prepped and draped in a sterile fashion. Safety pause time-out was confirmed. Antibiotics have been given. A Twenty-four [place] laser cystoscope was inserted per urethra. No abnormalities were found of the anterior and bulbar urethra. The bladder was examined and both ureteric orifices were seen in their normal positions away from the area of interest. Prior TURP visible. Tight bladder neck with right lateral tissue impingement Grade 2 trabeculation present. No bladder lesions. Using a GreenLight laser with settings of 80 w incisions were made at the 5 and 7 o'clock position. The incisions were taken down from the bladder neck down to the level of the veru. Starting with the patient's right lateral lobe. First the 05:00 o'clock groove was further developed. This was moved in the lateral direction to undermine the tissue on the lateral side running from the bladder neck to the prostate apex. After the majority of tissue had been debulked remnant tissue was ablated with the side fire laser and the curve of the prostate followed up each side wall. When this was had been completed debris and pieces of prostate were removed from the bladder with irrigation. Both ureteric orifices were reviewed again in shown to be patent in away from any areas of energy damage. The apical area was reviewed in any stray ooze was controlled. A 22 [place] 30 cc balloon Boone catheter was placed over a stylet into the bladder. Clear efflux was obtained upopn irrigation with a Mc piston syringe. 30 cc was placed in the balloon and gentle traction was placed. A snap was used to hold tension on the catheter to control bleeding during patient moved and transported. A drainage bag was placed. Once transportation is complete to the PACU the snap will be removed. The patient tolerated the procedure well, he was extubated in the operating and transferred in a stable condition to the recovery area. Total Power 21.7 kW Lasing time 3:37 Pathology: Prostate tissue Drains: Boone catheter
[2022-10-27] MEDS: Acetaminophen 325 MG TABLET 975 MG PO (09:07)
== END 2022-10-27 09:41 | disposition home or self-care (01) ==
PROVIDERS: PCP Internal Medicine; Visit Provider Urology
PROC: (CPT 52648; principal; 2022-10-27 07:30)
DX: N40.1 Benign prostatic hyperplasia with lower urinary tract symptoms (principal); C67.9 Malignant neoplasm of bladder, unspecified; N13.8 Other obstructive and reflux uropathy; R39.15 Urgency of urination; R35.1 Nocturia; N52.9 Male erectile dysfunction, unspecified; J44.9 Chronic obstructive pulmonary disease, unspecified; K21.9 Gastro-esophageal reflux disease without esophagitis; G47.30 Sleep apnea, unspecified
CPT/HCPCS: 52649; J1956; J3010

== ENCOUNTER → 2022-10-27 06:04 | Outpatient (BNV) | payer OTHER, SELFPAY | PROVIDERS: PCP Internal Medicine; Visit Provider Urology | DX: N32.0 Bladder-neck obstruction (principal) | CPT/HCPCS: 52649 ==

== ENCOUNTER 2022-10-30 09:43 | Outpatient (AMB) | payer OTHER, SELFPAY ==
--- NOTE | 2022-10-30 10:08 | AM.OFFVISNUR ---
Intake Intake Visit Reasons: voiding trial (greenlight) Allergies No Known Allergies [No Known Allergies*] Allergy (Verified 07/05/22 11:56) Office Procedures Bladder/Catheter Procedure Details: pt presents to office for voiding trial s/p greenlight laser prostatectomy. 120 mls sterile water instilled into bladder, 22 fr cath removed, pt tolerated removal well. bladder scanned for 0 mls. advised increased fluid intake today, call office by 2 pm if unable or having difficulty urinating, pt agreeable. [address] Aguilar [id number] of Bladder Procedure code (CPT) selection complete Post Void Residual Post Residual Void Post Void Residual (PVR): 0 [id number] Void Residual by ultrasound Coding CPT Codes Bladder/Catheter Procedure - CPT: 68086-Ekujbxiwzx of Bladder ([id number]) Post Residual Void - PVR CPT Code: 18795-Qnbu Void Residual by ultrasound ([id number]) Assessment & Plan Assessment & Plan Orders: Orders AMB Bladder/Catheter Procedure Today N40.1 - Benign prostatic hyperplasia with lower urinary tract symptoms AMB Post Void Residual by ultrasound Today N40.1 - Benign prostatic hyperplasia with lower urinary tract symptoms
== END 2022-10-30 10:33 | disposition home or self-care (01) ==
PROVIDERS: PCP Internal Medicine; Visit Provider Urology
DX: N40.1 Benign prostatic hyperplasia with lower urinary tract symptoms (principal)

== ENCOUNTER → 2022-10-30 09:43 | Outpatient (BNVA) | payer OTHER, SELFPAY | PROVIDERS: PCP Internal Medicine; Visit Provider Urology | DX: N40.1 Benign prostatic hyperplasia with lower urinary tract symptoms (principal); N13.8 Other obstructive and reflux uropathy | CPT/HCPCS: 51700; 51798 ==

== ENCOUNTER 2022-12-09 10:32 | Outpatient (AMB) | payer OTHER, SELFPAY ==
--- NOTE | 2022-12-09 10:54 | MHC.OFFVIS ---
Intake Intake Visit Reasons: 6w/greenlight post-op Intake Note: Patient is Present for Follow Up Greenlight Urology Medication: Sildenafil Antibiotic Allergies: None Blood Thinners: None Pharmacy: [facility] Allergies No Known Allergies [No Known Allergies*] Allergy (Verified 12/09/22 10:56) HPI HPI Comments History of Present Illness Details Atul is a very pleasant male. He is a patient of Dr. Ho. He is here for the following urologic conditions - bladder cancer - lower urinary tract symptoms - erectile dysfunction Happy with current voiding parameters Continue with bladder surveillance Lower Urinary Tract Symptoms: Current visit is for further evaluation of, lower urinary tract symptoms, predominate irritative symptoms. 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 - redo GLP 11/01 Prostate Symptom Score Moderate (9-19), Bother 3. - has noticed symptoms have mild improvement with sleep apnea machine - leakage requiring use of pads Bladder Cancer: 04/2016 TURP high-grade noninvasive, 05/30 Recurrent High Grade with CIS Recurrent 04/30 High Grade Bladder cancer was initially diagnosed 04/25 - during evaluation for gross hematuria. 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 Bladder cancer risk factors Organic Solvent exposure Yes Agent [place], [place], toxin from flame throw smoking No hair dye exposure No use of pioglitazone No chronic cystitis No prior chemotherapy with cyclophosphamide No family history of bladder cancer No pelvic radiation No Prior Cystoscopy 07/26 , Negative 10/26 , Negative, 02/26, Negative, 05/27, , Negative, 01/26 NAD, 05/28 , 09/27, 03/31, 09/28, 04/01, 09/29, 01/29, 04/30 Prior Cytology 04/25 , Abnormal, NAD, 05/28, 03/31, 10/30, 07/31 Occasional atypical, 10/31 Negative Previous intravesical therapy 04/25 , BCG Induction, 10/26 boost, 06/26 , BCG Maintanence - 05/31 Gemcitabine induction, 10/31 boost 3 weeks Erectile dysfunction: He presents today for for continued evaluation and management of erectile dysfunction. Symptoms have been present for/since ongoing. PFSH Medical History History of malaria COVID-19 vaccine series completed Arthritis Venous insufficiency Hepatitis Sleep apnea COPD (chronic obstructive pulmonary disease) History of post traumatic stress disorder GERD (gastroesophageal reflux disease) Asthma Bladder cancer Surgical History Hx of bladder repair surgery Hx of bilateral hip replacements Hx of cystoscopy H/O colonoscopy Social History Are you a primary care asst to a significant other at home: No Do you presently have visiting nurse or other home services: No Alcohol intake: current Alcohol intake frequency: holidays/special occasions only Alcohol type: beer Patient Tobacco Use Status: Never used Tobacco Review of Systems Const Denies chills and Denies fever(s) Card Reports no additional complaints and Denies syncope Resp Denies cough GI Denies abdominal pain and Denies heartburn Reports as per HPI and Denies change in libido Neuro Denies syncope Psych Denies change in libido Endo Denies change in libido Physical Exam Const General: cooperative, healthy appearing, comfortable and no acute distress Orientation/consciousness: patient oriented x3 HEENT Face and sinus: Yes normal facial exam Mouth: moist mucous membranes Neck Neck: Yes normal visual inspection, Yes full ROM and Yes trachea midline Chest Chest palpation & inspection: normal inspection of the chest Resp Effort & Inspection: normal respiratory effort, able to speak in complete sentences and no respiratory distress GI Inspection: Yes normal to inspection Back/Spine/Pelvis Cervical Spine: normal cervical lordosis Thoracic/Lumbar Spine: thoracic and lumbar spine normal to inspection Skin General skin exam: no rashes or lesions noted Neuro General: patient oriented x3, gait normal, tone normal and moves all extremities Extrem General: Yes normal to inspection and Yes capillary refill normal Assessment & Plan Assessment & Plan (1) Bladder cancer: Comment: High-grade 2018 superficial, 05/31 recurrent superficial high-grade with CIS Code(s): C67.9 - Malignant neoplasm of bladder, unspecified (2) BPH loc w urin obs/LUTS: Code(s): N40.1 - Benign prostatic hyperplasia with lower urinary tract symptoms Plan Four month follow-up cystoscopy Patient Instructions: Imaging studies, laboratory and physical exam results were discussed and reviewed in detail. No major barriers to patient understanding were identified. An opportunity to ask questions regarding the treatment plan was provided. All questions were answered. The patient expressed understanding and agreement with the above treatment plan. The patient is aware they should contact our office by phone for worsening of their current condition or the appearance of new urologic symptoms. Compliance is encouraged with any medications and followup testing that is ordered. It is a privilege to participate in the urologic care of your patient. If you have any questions or concerns regarding treatment for the above conditions, or other urologic issues, please do not hesitate to contact me. The office telephone contact is [phone]. This note is constructed using voice recognition software. While every effort has been made to ensure accuracy tufting creeler errors may have been included. Yours sincerely, Dr Hong Hester MD, [facility] - Urology Providers of Expert, Compassionate Care for the Genitourinary System Coding Level of Care Code Est Pt Level 3 (21866) Diagnoses Bladder cancer C67.9 BPH loc w urin obs/LUTS N40.1
== END 2022-12-09 11:45 | disposition home or self-care (01) ==
PROVIDERS: PCP Internal Medicine; Visit Provider Urology
DX: C67.9 Malignant neoplasm of bladder, unspecified (principal); N40.1 Benign prostatic hyperplasia with lower urinary tract symptoms
CPT/HCPCS: 99024

== ENCOUNTER → 2022-12-09 10:32 | Outpatient (BNVA) | payer OTHER, SELFPAY | PROVIDERS: PCP Internal Medicine; Visit Provider Urology | DX: C67.9 Malignant neoplasm of bladder, unspecified (principal); N40.1 Benign prostatic hyperplasia with lower urinary tract symptoms; N13.8 Other obstructive and reflux uropathy; N52.1 Erectile dysfunction due to diseases classified elsewhere; Z57.4 Occupational exposure to toxic agents in agriculture; Z91.85 Personal history of military service | CPT/HCPCS: 99212 ==

== ENCOUNTER 2023-04-10 08:56 | Outpatient (AMB) | payer OTHER, SELFPAY ==
--- NOTE | 2023-04-10 09:18 | MHC.OFFVIS ---
Intake Intake Visit Reasons: 4m/cysto(Bladder CA) Confirmed Intake Note: Meds: Sildenafil Allergies to Antibiotic: No Known Allergies Blood Thinner: None Urinalysis test clear for Cysto? Patient unable to provide urine sample in today's visit Disposable Uro-G Cystoscope Cannula: Lot : [id number] 06/22/2024 Cipher Expert Required: No Accompanied by: Self / Same As Patient Allergies No Known Allergies [No Known Allergies*] Allergy (Verified 04/10/23 09:27) HPI HPI Comments History of Present Illness Details Atul is a very pleasant male. He is a patient of Dr. Ho. He is here for the following urologic conditions - bladder cancer - lower urinary tract symptoms - erectile dysfunction Happy with current voiding parameters Continue with bladder surveillance Does have small bladder Recently diagnosed with central sleep apnea Recent knee replaced Lower Urinary Tract Symptoms: Current visit is for further evaluation of, lower urinary tract symptoms, predominate irritative symptoms. 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 - redo GLP 11/01 Prostate Symptom Score Moderate (9-19), Bother 3. 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 Bladder cancer risk factors Organic Solvent exposure Yes Agent [place], [place], toxin from flame throw smoking No hair dye exposure No use of pioglitazone No chronic cystitis No prior chemotherapy with cyclophosphamide No family history of bladder cancer No pelvic radiation No Prior Cystoscopy 07/26 , Negative 10/26 , Negative, 02/26, Negative, 05/27, , Negative, 01/26 NAD, 05/28 , 09/27, 03/31, 09/28, 04/01, 09/29, 01/29, 04/30 Prior Cytology 04/25 , Abnormal, NAD, 05/28, 03/31, 10/30, 07/31 Occasional atypical, 10/31 Negative Previous intravesical therapy 04/25 , BCG Induction, 10/26 boost, 06/26 , BCG Maintanence - 05/31 Gemcitabine induction, 10/31 boost 3 weeks, 06/01 boost 3 Erectile dysfunction: He presents today for for continued evaluation and management of erectile dysfunction. Symptoms have been present for/since ongoing. [facility] Medical History History of malaria COVID-19 vaccine series completed Arthritis Venous insufficiency Hepatitis Sleep apnea COPD (chronic obstructive pulmonary disease) History of post traumatic stress disorder GERD (gastroesophageal reflux disease) Asthma Bladder cancer Surgical History Hx of bladder repair surgery Hx of bilateral hip replacements Hx of cystoscopy H/O colonoscopy Social History Are you a primary career development coordinator to a significant other at home: No Do you presently have visiting nurse or other home services: No Alcohol intake: current Alcohol intake frequency: holidays/special occasions only Alcohol type: beer Patient Tobacco Use Status: Never used Tobacco Review of Systems Const Denies chills and Denies fever(s) Card Reports no additional complaints and Denies syncope Resp Denies cough GI Denies abdominal pain and Denies heartburn Reports as per HPI and Denies change in libido Neuro Denies syncope Psych Denies change in libido Endo Denies change in libido Physical Exam Const General: cooperative, healthy appearing, comfortable and no acute distress Orientation/consciousness: patient oriented x3 HEENT Face and sinus: Yes normal facial exam Mouth: moist mucous membranes Neck Neck: Yes normal visual inspection, Yes full ROM and Yes trachea midline Chest Chest palpation & inspection: normal inspection of the chest Resp Effort & Inspection: normal respiratory effort, able to speak in complete sentences and no respiratory distress GI Inspection: Yes normal to inspection Back/Spine/Pelvis Cervical Spine: normal cervical lordosis Thoracic/Lumbar Spine: thoracic and lumbar spine normal to inspection Skin General skin exam: no rashes or lesions noted Neuro General: patient oriented x3, gait normal, tone normal and moves all extremities Extrem General: Yes normal to inspection and Yes capillary refill normal Office Procedures Cystoscopy Consent Discussed risk and benefit or proposed procedure with the patient. Information consent for procedure given to the patient. Discussed technical aspects, risks, benefits and alternatives in full. Addressed all of the patient's questions and concerns regarding the procedure. The patient demonstrated knowledge and understanding. They wish to proceed with this procedure. Preparation The patient was prepped in the usual manner. A planning consultant was present and in the room. Genitalia was prepped with betadine solution in a sterile manner. Lidocaine Jelly 2% was placed into the urethra and 16Fr flexible Olympus cystoscope was inserted into the meatus after adequate lubrication. Procedure Meatus normal position Urethra anterior and posterior urethra normal e Prostatic Urethra open bladder neck TURP Bladder examination with retroflexion of cystoscope Bladder Orifices normal shape and position Bladder Capacity medium Trabeculations grade 1 Cellule Formation - Diverticulum Formation - Mucosal Erythema - Bladder Tumor scarring [id number] DISPOSABLE SCOPE URO-G FLEXIBLE SCOPE Procedure code (CPT) selection complete Office Meds lidocaine HCl 2 % mucosal jelly in applicator Performing Provider: Hong Hester MD Performing Location: [facility] [place] [facility] Administered by: Geronimo Calhoun LPN on 04/10/23 09:28 Dose Route Admin Location Dispensed Lot Number Expiration Date NDC Fountain Pen [place] 10 mL intra-urethral 10 mL nitrofurantoin monohydrate/macrocrystals 100 mg capsule Performing Provider: Hong Hester MD Performing Location: [facility] [place] [facility] Administered by: Geronimo Calhoun LPN on 04/10/23 09:28 Dose Route Admin Location Dispensed Lot Number Expiration Date NDC Fountain Pen [place] 100 mg PO 1 cap naproxen 500 mg tablet Performing Provider: Hong Hester MD Performing Location: [facility] [place] [facility] Administered by: Geronimo Calhoun LPN on 04/10/23 09:28 Dose Route Admin Location Dispensed Lot Number Expiration Date NDC Fountain Pen [place] 500 mg PO 1 tab Assessment & Plan Assessment & Plan (1) BPH loc w urin obs/LUTS: Code(s): N40.1 - Benign prostatic hyperplasia with lower urinary tract symptoms (2) Urinary urgency: Code(s): R39.15 - Urgency of urination (3) Erectile dysfunction: Code(s): N52.9 - Male erectile dysfunction, unspecified Plan Cystoscopy clear Four month follow-up cysto Orders: Orders AMB Cystoscopy Today C67.9 - Malignant neoplasm of bladder, unspecified, N40.1 - Benign prostatic hyperplasia with lower urinary tract symptoms Patient Instructions: Imaging studies, laboratory and physical exam results were discussed and reviewed in detail. No major barriers to patient understanding were identified. An opportunity to ask questions regarding the treatment plan was provided. All questions were answered. The patient expressed understanding and agreement with the above treatment plan. The patient is aware they should contact our office by phone for worsening of their current condition or the appearance of new urologic symptoms. Compliance is encouraged with any medications and followup testing that is ordered. It is a privilege to participate in the urologic care of your patient. If you have any questions or concerns regarding treatment for the above conditions, or other urologic issues, please do not hesitate to contact me. The office telephone contact is [phone]. This note is constructed using voice recognition software. While every effort has been made to ensure accuracy sisal operator errors may have been included. Yours sincerely, Dr Hong Hester MD, [facility] - Urology Providers of Expert, Compassionate Care for the Genitourinary System Coding Level of Care Code Est Pt Level 3 (13078) Diagnoses BPH loc w urin obs/LUTS N40.1 Urinary urgency R39.15 Erectile dysfunction N52.9 CPT Codes Cystoscopy - CPT: 39547-[id number] ([id number])
== END 2023-04-10 10:12 | disposition home or self-care (01) ==
PROVIDERS: PCP Internal Medicine; Visit Provider Urology
DX: N40.1 Benign prostatic hyperplasia with lower urinary tract symptoms (principal); R39.15 Urgency of urination; N52.9 Male erectile dysfunction, unspecified
CPT/HCPCS: 52000; 99213

== ENCOUNTER → 2023-04-10 08:56 | Outpatient (BNVA) | payer OTHER, SELFPAY | PROVIDERS: PCP Internal Medicine; Visit Provider Urology | DX: N40.1 Benign prostatic hyperplasia with lower urinary tract symptoms (principal); R39.15 Urgency of urination; N52.9 Male erectile dysfunction, unspecified | CPT/HCPCS: 52000; 99212 ==

== ENCOUNTER 2023-04-10 16:31 | Outpatient (REF) | payer OTHER, SELFPAY | END 2023-04-10 16:32 | disposition home or self-care (01) | LOC: HO.LNP 16:31 | PROVIDERS: Visit Provider Urology | DX: C67.9 Malignant neoplasm of bladder, unspecified (principal) | CPT/HCPCS: 88121 ==

== ENCOUNTER 2023-07-18 13:20 | Emergency (ER) | payer OTHER, SELFPAY ==
--- NOTE | ~2023-07-18 | US_ITS ---
EXAMINATION: US VENOUS ULTRASOUND WITH DOPPLER LOWER EXTREMITY, LEFT CLINICAL INFORMATION: Swelling after left knee replacement COMPARISON: None available. TECHNIQUE: Ultrasound of the deep veins is performed from the hip to the calf with compression sonography and color and pulse Doppler assessment. Spectral analysis with color-flow imaging is performed. FINDINGS: There is normal venous compression and respiratory variation and augmented flow. The visualized common femoral vein, superficial femoral vein, profunda femoral vein, popliteal vein, and the trifurcation region shows no evidence of deep venous thrombosis. There is no significant popliteal fossa cyst. Prominent lymph nodes are present in the left groin measuring 2.4 x 0.7 x 2.5 cm and 2.3 x 0.4 x 0.9 cm. If the patient's symptoms persist, followup ultrasound in 5 days 7 days might be of value to exclude proximal propagation from a non-visualized calf vein. US/US venous duplex LE IMPRESSION: No DVT demonstrated in the left lower extremity.
--- NOTE | ~2023-07-18 | XR_ITS ---
EXAMINATION: XR HIP, LEFT CLINICAL INFORMATION: Fall with left hip pain COMPARISON: CT abdomen pelvis 03/14/2016 TECHNIQUE: Two views of the left hip. FINDINGS: There are bilateral total hip prostheses present new since 2017. Prosthesis is intact. No fracture. Alignment is anatomic. Soft tissues are unremarkable. Degenerative changes are noted in the visualized lumbar spine. XR/XR hip LT w PEL1V IMPRESSION: No acute fractures. Bilateral total hip prostheses are intact. Alignment is anatomic.
[2023-07-18 13:35] VITALS: BP 127/64; PULSE 64; RESP 16; TEMP 36.2; O2SAT 96; BMI 30.5
--- NOTE | 2023-07-18 13:36 | ED_ITS ---
HPI - Fall General Chief Complaint: Fall Stated Complaint: fall Time Seen by Provider: 07/18/23 16:09 Source: patient, family (Patient's ), RN notes reviewed and old records reviewed Mode of arrival: ambulatory Limitations: no limitations History of Present Illness ED Provider: Saumya HPI Narrative: 77-year-old male with past medical history significant for BPH, bladder cancer followed by Dr. Hester, recent left knee replacement 5 days ago with [facility] presents for evaluation of left leg swelling. Patient reports the day of his left knee replacement he had 3 separate falls. He was trying to get into bed and fell backwards. The patient's heard the collision and immediately went to go see him, he had not lost consciousness. She states that while trying to help him up the patient ended up climbing to his knees which he knows he has not supposed to do due to the knee replacement earlier that morning He fell again as he was getting to his feet and did not strike his head He was finally able to get to his feet and then fell in the bathroom a few minutes later while turning around Again he states he did not injure himself with this fall He has been walking better in the 4 days since those falls and has not fallen in the last 4 days. He reports that he noticed swelling to his left thigh with bruising just yesterday despite the fall being 5 days ago He is on aspirin but not anticoagulation He has minimal pain The patient denies any headaches outside of his baseline Related Data Home Medications ?Medication ?Instructions ?Recorded ?Confirmed azelastine 137 mcg (0.1 %) nasal 2 spray intranasal BID 12/15/19 12/26/21 spray aerosol meloxicam 15 mg tablet 15 mg PO DAILY 12/15/19 12/26/21 acetaminophen 500 mg tablet 1,000 mg PO Q6H PRN Pain 05/01/21 12/26/21 budesonide-formoterol HFA 160 1 puff inhalation BID 05/01/21 12/26/21 mcg-4.5 mcg/actuation aerosol inhaler (Symbicort) omeprazole 20 mg tablet,delayed 20 mg PO DAILY PRN Heartburn 05/01/21 12/26/21 release Fish Oil 2,800 mg PO DAILY 05/06/21 12/26/21 Glucosamine 3,000 mg PO DAILY 05/06/21 12/26/21 cholecalciferol (vitamin D3) 50 50 mcg PO DAILY 05/06/21 12/26/21 mcg (2,000 unit) capsule (Vitamin D3) coenzyme Q10 100 mg capsule 300 mg PO DAILY 05/06/21 12/26/21 (CoQ-10) metoprolol succinate 25 mg 25 mg PO DAILY 08/07/21 12/26/21 tablet,extended release 24 hr Previous Rx's ?Medication ?Instructions ?Recorded sildenafil 100 mg tablet 100 mg PO DAILY PRN sexual 04/05/21 activity 90 days #12 tabs ciprofloxacin HCl 500 mg tablet 500 mg PO BID 5 days #10 tabs 07/02/22 meclizine 25 mg tablet 25 mg PO TID PRN dizziness #20 tabs 07/05/22 Allergies Allergy/AdvReac Type Severity Reaction Status Date / Time No Known Allergies Allergy Verified 07/18/23 13:38 [No Known Allergies*] Review of Systems 2 Constitutional: Constitutional: Denies body ache(s), Denies chills, Reports headache(s) (chronic) and Denies poor appetite Eyes: Eyes: Denies blurry vision ENT: Denies vertigo, Denies dizziness and Reports headache(s) (chronic) Cardiovascular: Cardiovascular: Denies chest pain and Denies dyspnea Respiratory: Respiratory: Denies cough and Denies dyspnea Gastrointestinal: Gastrointestinal: Denies abdominal pain, Denies nausea and Denies vomiting Musculoskeletal: Musculoskeletal: Denies back pain, Reports arthralgias and Reports limited range of motion Integumentary/Breasts: Skin/Breast: Denies rash Neurologic: Denies vertigo, Denies dizziness and Reports headache(s) (chronic) [facility] Past Medical History Medical History History of malaria COVID-19 vaccine series completed Arthritis Venous insufficiency Hepatitis Sleep apnea COPD (chronic obstructive pulmonary disease) History of post traumatic stress disorder GERD (gastroesophageal reflux disease) Asthma Bladder cancer Surgical History Hx of bladder repair surgery Hx of bilateral hip replacements Hx of cystoscopy H/O colonoscopy Social History Social History Are you a primary medical care evaluation specialist to a significant other at home: No Do you presently have visiting nurse or other home services: No Alcohol intake: current Alcohol intake frequency: holidays/special occasions only Alcohol type: beer Patient Tobacco Use Status: Never used Tobacco Advance Directives: No Advance Directives Information Provided: No Physical Exam 2 Vital Signs: Vital Signs: Last Vital Signs Temp 97.9 F 07/18/23 15:32 Pulse 63 07/18/23 15:32 Resp 18 07/18/23 15:32 BP 128/56 L 07/18/23 15:32 Pulse Ox 98 07/18/23 15:32 O2 Del Method Room Air 07/18/23 15:32 BMI result Body Mass Index 30.5 Const: General: healthy appearing, comfortable, no acute distress, alert and awake Nutritional Appearance: well nourished Orientation/consciousness: p atient oriented x3 HEENT: Head: Yes normocephalic and Yes atraumatic Eyes: Eyelids: Yes eyelids normal Conjunctivae: conjunctivae normal S clerae: sclerae normal Corneas: corneas normal Pupils: Equal, round and reactive pupils present EOM: EOMs intact bilaterally Neck: Neck: Yes full ROM Resp: Effort & Inspection: normal respiratory effort, able to speak in complete sentences and not labored GI: Inspection: No distended Palpation (GI): Soft to palpation, not firm, nontender, no guarding and not rigid Skin: General skin exam: elasticity normal Neuro: General: patient oriented x3 Cranial nerves: Yes Equal, round and reactive pupils present and Yes Bilaterally intact EOM present Cognition (Neuro): normal cognition Extrem: Other: Patient is able to flex and extend at the hips and knees bilaterally without discomfort. He has a surgical incision to the left anterior knee. Dressing is intact with some serosanguineous drainage. No surrounding erythema. Patient has a large area of ecchymosis to the left anterior medial thigh. No fluctuance. No calf tenderness Course Course Course Narrative: This is a Rapid Medical Examination (RME) performed by Brain Lopes PA-C in triage. Full HPI, ROS, assessment and treatment plan per primary provider in the Main ED. 77 yo male POD #4 from left knee replacement at [facility] presents to the ER for evaluation of left hip pain, leg swelling and bruising s/p fall on the day of surgery. Seen at [facility] on the following day for evaluation of the knee after he fell. X-rays were reportedly ok. He was started on aspirin. Since then he has had worsening ecchymosis of the left thigh, swelling of the left lower leg and left hip pain. No chest pain or SOB. On exam he has diffuse ecchymosis of the left upper thigh, compartments are soft and compressible, minimally tender along w taught LE swelling of the lower leg. Plan: labs, U/S LLE, X-ray hip for now Medical Decision Making Medical Decision Making [facility] Narrative: 77-year-old male past medical history as documented above presents for evaluation of left leg swelling. He had a slightly 5 days ago the day he had his knee replaced. He reports that the area did not become swollen until yesterday. Plan for ultrasound to evaluate for DVT. He had some left hip soreness and x-rays show no displacement of his bilateral total hips. The patient has a mild anemia which is likely related to his recent surgery. Electrolytes are significant for potassium of 5.2, otherwise labs within normal limits. There is nothing the patient's workup to suggest infectious cause of his leg swelling. Clinically he likely has a hematoma to the left thigh. Differential Diagnosis Differential Diagnoses: The differential diagnosis associated with the presentation includes Hematoma Ecchymosis Peripheral edema DVT Cellulitis Lab Data [facility] Lab Attestation statement: I reviewed the patient's lab results. Please see medical decision making above 07/18/23 14:02 07/18/23 14:02 Labs: Lab Results 07/18/23 Range/Units 14:02 WBC 8.6 (4.8-10.8) X10*3/uL RBC 4.31 L (4.60-5.80) X10*6/uL Hgb 13.4 L (14.0-18.0) g/dl Hct 39.8 L (42.0-52.0) % MCV 92.3 (80.0-98.0) fL MCH 31.1 (27.0-33.0) pg MCHC 33.7 (31.0-36.0) g/dl RDW 13.0 (11.0-16.0) % Plt Count 247 (160-400) X10*3/uL MPV 9.7 (9.4-12.4) fL Immature Gran % (Auto) 0.7 H (0.0-0.4) % Neut % (Auto) 63.6 (45-73) % Lymph % (Auto) 17.6 L (20-40) % [place] % (Auto) 11.1 H (2-11) % Eos % (Auto) 6.7 H (0-4) % Baso % (Auto) 0.3 (0-2) % Lymph # (Auto) 1.5 (1.2-4.9) X10*3/uL [place] # (Auto) 1.0 (0.1-1.2) X10*3/uL Eos # (Auto) 0.6 H (0.0-0.4) X10*3/uL Baso # (Auto) 0.0 (0.0-0.2) X10*3/uL Abs Immat Gran (auto) 0.06 H (0.00-0.03) X10*3/uL Absolute Neuts (auto) 5.5 (2.0-8.3) x10*3/uL Absolute Nucleated RBC 0.000 (0.0-0.012) X10*3/uL Nucleated RBC % (auto) 0.0 (0.0-0.2) /100WBC Sodium 138 (135-145) mmol/L Potassium 5.2 H (3.3-5.1) mmol/L Chloride 106 (96-108) mmol/L Carbon Dioxide 24 (22-29) mmol/L Anion Gap 13 (12-20) BUN 37 H (9-16) mg/dL Creatinine 1.10 (0.5-1.4) mg/dL Estim Creat Clear Calc 68.4 Estimated GFR > 60 Random Glucose 108 (60-115) mg/dL Calcium 9.2 (8.4-10.2) mg/dL Magnesium 2.3 (1.6-2.6) mg/dL Total Bilirubin 1.5 H (0.0-1.0) mg/dL Direct Bilirubin 0.4 (0.0-0.5) mg/dL AST 19 (5-37) U/L ALT 16 (0-40) U/L Alkaline Phosphatase 96 (39-117) U/L Total Protein 6.6 (6.5-8.0) g/dL Albumin 3.6 (3.5-5.0) g/dL Radiology Impression Discussion of test interpretation with radiology: I have reviewed the radiologist's reading. (No DVT demonstrated in the left lower extremity.) Tests considered The following testing was considered but not selected: Discussed CT scan of the brain, however the patient's fall was over 5 days ago and he has no acute symptoms suggestive of significant TBI. Patient declined CT scan at this time which I feel is appropriate Discharge Plan Discharge Clinical Impression: Left leg swelling Patient Disposition: Home, Self-Care Instructions: Hematoma (ED) Additional Instructions: Your workup in the ER today was reassuring. Your x-ray did not show any fractures. Your ultrasound did not show any evidence of DVT Follow-up with your primary doctor in your orthopedic team Return for new or worsening symptoms Prescriptions: No Action ciprofloxacin HCl 500 mg tablet 500 mg PO BID 5 Days Qty: 10 0RF budesonide-formoterol [Symbicort] 160-4.5 mcg/actuation Hfa Aerosol Inhaler 1 puff INHALATION BID omeprazole 20 mg Tablet,Delayed Release (Dr/Ec) 20 mg PO DAILY PRN (Reason: Heartburn) acetaminophen 500 mg Tablet 1,000 mg PO Q6H PRN (Reason: Pain) coenzyme Q10 [CoQ-10] 100 mg Capsule 300 mg PO DAILY cholecalciferol (vitamin D3) [Vitamin D3] 50 mcg (2,000 unit) Capsule 50 mcg PO DAILY Fish Oil 2,800 mg PO DAILY Glucosamine 3,000 mg PO DAILY meclizine 25 mg tablet 25 mg PO TID PRN (Reason: dizziness) Qty: 20 0RF meloxicam 15 mg tablet 15 mg PO DAILY azelastine 137 mcg (0.1 %) aerosol,spray 2 spray intranasal BID sildenafil 100 mg tablet 100 mg PO DAILY PRN (Reason: sexual activity) 90 Days Qty: 12 1RF Rx Instructions: administer 60 minutes before intended activity metoprolol succinate 25 mg tablet extended release 24 hr 25 mg PO DAILY Print Language: Stateless
[2023-07-18 14:07] LABS: MANUAL DIFF FLAG NO
[2023-07-18 14:08] LABS: Basophils Percent Auto 0.3 % (0-2); Eosinophils Absolute Auto 0.6 X10*3/uL (0.0-0.4); Eosinophils Percent Auto 6.7 % (0-4); Hematocrit 39.8 % (42.0-52.0); Hemoglobin 13.4 g/dl (14.0-18.0); Imm Gran Abs Auto 0.06 X10*3/uL (0.00-0.03); Imm Gran Pct Auto 0.7 % (0.0-0.4); Lymphocytes Absolute Auto 1.5 X10*3/uL (1.2-4.9); Lymphocytes Percent Auto 17.6 % (20-40); Mean Corpuscular HGB Conc 33.7 g/dl (31.0-36.0); Mean Corpuscular Hemoglobin 31.1 pg (27.0-33.0); Mean Corpuscular Volume 92.3 fL (80.0-98.0); Mean Platelet Volume 9.7 fL (9.4-12.4); Monocytes Percent Auto 11.1 % (2-11); Neutrophils Absolute Auto 5.5 x10*3/uL (2.0-8.3); Neutrophils Percent Auto 63.6 % (45-73); Platelet Count 247 X10*3/uL (160-400); Red Blood Count 4.31 X10*6/uL (4.60-5.80); White Blood Count 8.6 X10*3/uL (4.8-10.8)
[2023-07-18 14:22] LABS: Alanine Aminotransferase 16 U/L (0-40); Albumin Level 3.6 g/dL (3.5-5.0); Alkaline Phosphatase 96 U/L (39-117); Anion Gap 13 (12-20); Aspartate Amino Transferase 19 U/L (5-37); Bilirubin Direct 0.4 mg/dL (0.0-0.5); Bilirubin Total 1.5 mg/dL (0.0-1.0); Blood Urea Nitrogen 37 mg/dL (9-16); Calcium 9.2 mg/dL (8.4-10.2); Carbon Dioxide 24 mmol/L (22-29); Chloride 106 mmol/L (96-108); Creatinine Clr Calc Pharmacy 68.4; Estimated Glomerular Filt Rate > 60; Glucose Random 108 mg/dL (60-115); Magnesium 2.3 mg/dL (1.6-2.6); Potassium 5.2 mmol/L (3.3-5.1); Sodium 138 mmol/L (135-145); Total Protein 6.6 g/dL (6.5-8.0)
[2023-07-18 15:32] VITALS: BP 128/56; PULSE 63; RESP 18; TEMP 36.6; O2SAT 98
[2023-07-18 17:53] VITALS: BP 131/71; PULSE 71; RESP 16; TEMP 36.3; O2SAT 96
== END 2023-07-18 17:54 | disposition home or self-care (01) ==
PROVIDERS: Physician Assistant; Emergency Provider Student in an Organized Health Care Education/Training Program; PCP Internal Medicine
DX: S70.12XA Contusion of left thigh, initial encounter (principal); W18.39XA Other fall on same level, initial encounter; R29.6 Repeated falls; M79.605 Pain in left leg; Z91.81 History of falling; Z79.899 Other long term (current) drug therapy; Y93.89 Activity, other specified; Y92.009 Unspecified place in unspecified non-institutional (private) residence as the place of occurrence of the external cause; Y99.9 Unspecified external cause status
CPT/HCPCS: 36415; 73502; 80048; 80076; 83735; 85025; 93971; 99282; 99284

== ENCOUNTER 2023-08-11 09:03 | Outpatient (REF) | payer OTHER, SELFPAY ==
[2023-08-11 16:19] LABS: Urine Cytology See Pathology rpt
== END 2023-08-11 09:04 | disposition home or self-care (01) ==
LOC: HO.LAB 09:03
PROVIDERS: PCP Internal Medicine; Visit Provider Urology
DX: C67.9 Malignant neoplasm of bladder, unspecified (principal); N52.9 Male erectile dysfunction, unspecified
CPT/HCPCS: 52000; 81003; 88112; 99212

== ENCOUNTER 2023-08-11 09:03 | Outpatient (AMB) | payer OTHER, SELFPAY ==
--- NOTE | 2023-08-11 09:13 | A.OFFVIS_ITS ---
Intake Visit Reasons: cysto Intake Note: Patient is present for Cystoscopy Urology Medication:ciprofloxacin,sildenafil Antibiotic Allergy:none Blood Thinner:none Lot:[id number] Exp:03/26/2026 Travograph Operator Required: No Allergies No Known Allergies [No Known Allergies*] Allergy (Verified 08/11/23 09:16) Medication List - Last Reconciled 08/11/23 by Hong Hester MD acetaminophen 1,000 mg PO Q6H PRN azelastine 2 sprays intranasal BID budesonide-formoterol 160-4.5 mcg/actuation (Symbicort) 1 puff inhalation BID cholecalciferol (vitamin D3) (Vitamin D3) 50 mcg PO DAILY ciprofloxacin HCl 500 mg PO BID 5 days coenzyme Q10 (CoQ-10) 300 mg PO DAILY [Fish Oil 2,800 mg PO DAILY] [Glucosamine 3,000 mg PO DAILY] meclizine 25 mg PO TID PRN metoprolol succinate ER 25 mg PO DAILY omeprazole 20 mg PO DAILY PRN sildenafil 100 mg PO DAILY PRN 30 days HPI Comments Details: Atul is a very pleasant male. He is a patient of Dr. Ho. He is here for the following urologic conditions - bladder cancer - lower urinary tract symptoms - erectile dysfunction Happy with current voiding parameters Continue with bladder surveillance Does have small bladder Recently diagnosed with central sleep apnea Recent knee replaced Lower Urinary Tract Symptoms: Current visit is for further evaluation of, lower urinary tract symptoms, predominate irritative symptoms. 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 - redo GLP 11/01 Prostate Symptom Score Moderate (9-19), Bother 3. 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 Bladder cancer risk factors Organic Solvent exposure Yes Agent [place], [place], toxin from flame throw smoking No hair dye exposure No use of pioglitazone No chronic cystitis No prior chemotherapy with cyclophosphamide No family history of bladder cancer No pelvic radiation No Prior Cystoscopy 07/26 , Negative 10/26 , Negative, 02/26, Negative, 05/27, , Negative, 01/26 NAD, 05/28 , 09/27, 03/31, 09/28, 04/01, 09/29, 01/29, 04/30 Prior Cytology 04/25 , Abnormal, NAD, 05/28, 03/31, 10/30, 07/31 Occasional atypical, 10/31 Negative Previous intravesical therapy 04/25 , BCG Induction, 10/26 boost, 06/26 , BCG Maintanence - 05/31 Gemcitabine induction, 10/31 boost 3 weeks, 06/01 boost 3 Erectile dysfunction: He presents today for for continued evaluation and management of erectile dysfunction. Symptoms have been present for/since ongoing. [facility] Medical History History of malaria COVID-19 vaccine series completed Arthritis Venous insufficiency Hepatitis Sleep apnea COPD (chronic obstructive pulmonary disease) History of post traumatic stress disorder GERD (gastroesophageal reflux disease) Asthma Bladder cancer Surgical History Hx of bladder repair surgery Hx of bilateral hip replacements Hx of cystoscopy H/O colonoscopy Social History Are you a primary childcare director to a significant other at home: No Do you presently have visiting nurse or other home services: No Alcohol intake: current Alcohol intake frequency: holidays/special occasions only Alcohol type: beer Patient Tobacco Use Status: Never used Tobacco Office Procedures Cystoscopy Consent Discussed risk and benefit or proposed procedure with the patient. Information consent for procedure given to the patient. Discussed technical aspects, risks, benefits and alternatives in full. Addressed all of the patient's questions and concerns regarding the procedure. The patient demonstrated knowledge and understanding. They wish to proceed with this procedure. Preparation The patient was prepped in the usual manner. A family life educator was present and in the room. Genitalia was prepped with betadine solution in a sterile manner. Lidocaine Jelly 2% was placed into the urethra and 16Fr flexible Olympus cystoscope was inserted into the meatus after adequate lubrication. Procedure Cystoscopy performed using a disposable Urovue digital 16 [place] cystoscope. Meatus circumcised Urethra anterior and posterior urethra normal Prostatic Urethra unremarkable Bladder examination with retroflexion of cystoscope Bladder Orifices normal shape and position Bladder Capacity medium Trabeculations mild Cellule Formation Yes No Diverticulum Formation - Mucosal Erythema -- Bladder Tumor - [id number] DISPOSABLE SCOPE URO-G FLEXIBLE SCOPE Procedure code (CPT) selection complete Office Meds lidocaine HCl 2 % mucosal jelly in applicator Performing Provider: Hong Hester MD Performing Location: [facility] [place] [facility] Administered by: Chris Pizano RN on 08/11/23 09:30 Dose Route Admin Location Dispensed Lot Number Expiration Date NDC Planning Supervisor 10 mL intra-urethral 10 mL nitrofurantoin monohydrate/macrocrystals 100 mg capsule Performing Provider: Hong Hester MD Performing Location: [facility] [place] [facility] Administered by: Chris Pizano RN on 08/11/23 09:30 Dose Route Admin Location Dispensed Lot Number Expiration Date NDC Planning Supervisor 100 mg PO 1 cap naproxen 500 mg tablet Performing Provider: Hong Hester MD Performing Location: [facility] [place] [facility] Administered by: Chris Pizano RN on 08/11/23 09:30 Dose Route Admin Location Dispensed Lot Number Expiration Date NDC Planning Supervisor 500 mg PO 1 tab Results AMB Urinalysis, Automated UA Leukoctes 0 Abby/uL Last Edit by SAMANTHA Cristina on 08/11/23 09:28 UA Nitrite Negative Last Edit by SAMANTHA Cristina on 08/11/23 09:28 UA Urobilinogen 0.2 mg/dL Last Edit by SAMANTHA Cristina on 08/11/23 09:2 8 UA Protein 15 mg/dL Last Edit by SAMANTHA Cristina on 08/11/23 09:28 UA pH 5.0 Last Edit by SAMANTHA Cristina on 08/11/23 09:28 UA Blood 0 Serge/uL Last Edit by SAMANTHA Cristina on 08/11/23 09:28 UA Specific [place] 1.025 Last Edit by SAMANTHA Cristina on 08/11/23 09: 28 UA Ketone Negative Last Edit by SAMANTHA Cristina on 08/11/23 09:28 UA Bilirubin 0 mg/dL Last Edit by SAMANTHA Cristina on 08/11/23 09:28 UA Glucose 0 mg/dL Last Edit by SAMANTHA Cristina on 08/11/23 09:28 Results Reviewed Results Reviewed: Laboratory Last Values Urine pH (Auto) 5.0 08/11/23 09:27 Specific [place] (Auto) 1.025 08/11/23 09:27 Urine Protein (Auto) 15 mg/dL 08/11/23 09:27 Glucose (UA)(Auto) 0 mg/dL 08/11/23 09:27 Urine Ketones (Auto) Negative 08/11/23 09:27 Urine Blood (Auto) 0 Serge/uL 08/11/23 09:27 Urine Nitrite (Auto) Negative 08/11/23 09:27 Urine Bilirubin (Auto) 0 mg/dL 08/11/23 09:27 Urine Urobilinogen (Auto) 0.2 mg/dL 08/11/23 09:27 Leukocyte Esterase (Auto) 0 Abby/uL 08/11/23 09:27 Assessment & Plan Assessment & Plan (1) Recurrent UTI: Code(s): N39.0 - Urinary tract infection, site not specified Category: Medical (2) BPH loc w urin obs/LUTS: Code(s): N40.1 - Benign prostatic hyperplasia with lower urinary tract symptoms Category: Medical (3) Bladder cancer: Comment: High-grade 2018 superficial, 05/31 recurrent superficial high-grade with CIS Code(s): C67.9 - Malignant neoplasm of bladder, unspecified Category: Medical (4) Erectile dysfunction: Code(s): N52.9 - Male erectile dysfunction, unspecified Category: Medical Plan Six-month follow-up cystoscopy Orders: Orders AMB Cystoscopy 08/11/23 C67.9 - Malignant neoplasm of bladder, unspecified, N40.1 - Benign prostatic hyperplasia with lower urinary tract symptoms, R39.15 - Urgency of urination, N39.0 - Urinary tract infection, site not specified AMB Urinalysis Automated 08/11/23 Z13.9 - Encounter for screening, unspecified Urine Cytology 08/11/23 C67.9 - Malignant neoplasm of bladder, unspecified Medications: Changed From sildenafil administer 60 minutes before intended activity 100 mg PO DAILY 90 days PRN 12 tabs 1RF sexual activity N52.9 - Male erectile dysfunction, unspecified To sildenafil administer 60 minutes before intended activity 100 mg PO DAILY PRN 30 tabs 1RF sexual activity 30 days N52.9 - Male erectile dysfunction, unspecified Patient Instructions: Imaging studies, laboratory and physical exam results were discussed and reviewed in detail. No major barriers to patient understanding were identified. An opportunity to ask questions regarding the treatment plan was provided. All questions were answered. The patient expressed understanding and agreement with the above treatment plan. The patient is aware they should contact our office by phone for worsening of their current condition or the appearance of new urologic symptoms. Compliance is encouraged with any medications and followup testing that is ordered. It is a privilege to participate in the urologic care of your patient. If you have any questions or concerns regarding treatment for the above conditions, or other urologic issues, please do not hesitate to contact me. The office telephone contact is [phone]. This note is constructed using voice recognition software. While every effort has been made to ensure accuracy illuminating engineer errors may have been included. Yours sincerely, Dr Hong Hester MD, [facility] - Urology Providers of Expert, Compassionate Care for the Genitourinary System Coding Level of Care Code Est Pt Level 3 (92208) Diagnoses Recurrent UTI N39.0 BPH loc w urin obs/LUTS N40.1 Bladder cancer C67.9 Erectile dysfunction N52.9 CPT Codes Cystoscopy - CPT: [id number] ([id number])
== END 2023-08-11 10:13 | disposition home or self-care (01) ==
PROVIDERS: PCP Internal Medicine; Visit Provider Urology
DX: C67.9 Malignant neoplasm of bladder, unspecified (principal); N40.1 Benign prostatic hyperplasia with lower urinary tract symptoms; R39.15 Urgency of urination; N39.0 Urinary tract infection, site not specified; Z13.9 Encounter for screening, unspecified
CPT/HCPCS: 52000; 99213

== ENCOUNTER 2024-02-16 08:52 | Outpatient (AMB) | payer OTHER, SELFPAY ==
--- NOTE | 2024-02-16 09:05 | MHC.OFFVIS ---
Intake Visit Reasons: 5M Cystoscopy(Bladder Ca) Intake Note: Patient is present for 5M Cystoscopy Urology Medication:SILDENAFIL Antibiotic Allergy:NONE Blood Thinner:NONE Lot:[id number] Exp:12/13/26 Emergency Medical Technician Basic Required: No Allergies No Known Allergies [No Known Allergies*] Allergy (Verified 02/16/24 09:06) HPI Comments Details: Atul is a very pleasant male. He is a patient of Dr. Ho. He is here for the following urologic conditions - bladder cancer - lower urinary tract symptoms - erectile dysfunction Happy with current voiding parameters Continue with bladder surveillance Does have small bladder Recently diagnosed with central sleep apnea Recent knee replaced Lower Urinary Tract Symptoms: Current visit is for further evaluation of, lower urinary tract symptoms, predominate irritative symptoms. 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 - redo GLP 11/01 Prostate Symptom Score Moderate (9-19), Bother 3. 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 Bladder cancer risk factors Organic Solvent exposure Yes Agent Leon, camp [place], toxin from flame throw smoking No hair dye exposure No use of pioglitazone No chronic cystitis No prior chemotherapy with cyclophosphamide No family history of bladder cancer No pelvic radiation No Prior Cystoscopy 07/26 , Negative 10/26 , Negative, 02/26, Negative, 05/27, , Negative, 01/26 NAD, 05/28 , 09/27, 03/31, 09/28, 04/01, 09/29, 01/29, 04/30 Prior Cytology 04/25 , Abnormal, NAD, 05/28, 03/31, 10/30, 07/31 Occasional atypical, 10/31 Negative Previous intravesical therapy 04/25 , BCG Induction, 10/26 boost, 06/26 , BCG Maintanence - 05/31 Gemcitabine induction, 10/31 boost 3 weeks, 06/01 boost 3 Erectile dysfunction: He presents today for for continued evaluation and management of erectile dysfunction. Symptoms have been present for/since ongoing. [facility] Medical History History of malaria COVID-19 vaccine series completed Arthritis Venous insufficiency Hepatitis Sleep apnea COPD (chronic obstructive pulmonary disease) History of post traumatic stress disorder GERD (gastroesophageal reflux disease) Asthma Bladder cancer Surgical History Hx of bladder repair surgery Hx of bilateral hip replacements Hx of cystoscopy H/O colonoscopy Social History Are you a primary student career development specialist to a significant other at home: No Do you presently have visiting nurse or other home services: No Alcohol intake: current Alcohol intake frequency: holidays/special occasions only Alcohol type: beer Patient Tobacco Use Status: Never used Tobacco Results AMB Urinalysis, Automated UA Leukoctes 15 Abby/uL Last Edit by SAMANTHA Cristina on 02/16/24 09:17 UA Nitrite Positive Last Edit by SAMANTHA Cristina on 02/16/24 09:17 UA Urobilinogen 0.2 mg/dL Last Edit by SAMANTHA Cristina on 02/16/24 09:17 UA Protein 100 mg/dL Last Edit by SAMANTHA Cristina on 02/16/24 09:17 UA pH 6.0 Last Edit by SAMANTHA Cristina on 02/16/24 09:17 UA Blood 10 Serge/uL Last Edit by SAMANTHA Cristina on 02/16/24 09:17 UA Specific [place] 1.025 Last Edit by SAMANTHA Cristina on 02/16/24 09:17 UA Ketone Negative Last Edit by SAMANTHA Cristina on 02/16/24 09:17 UA Bilirubin 0 mg/dL Last Edit by SAMANTHA Cristina on 02/16/24 09:17 UA Glucose 0 mg/dL Last Edit by SAMANTHA Cristina on 02/16/24 09:17 Results Reviewed Results Reviewed: Laboratory Last Values Urine pH (Auto) 6.0 02/16/24 09:16 Specific [place] (Auto) 1.025 02/16/24 09:16 Urine Protein (Auto) 100 mg/dL 02/16/24 09:16 Glucose (UA)(Auto) 0 mg/dL 02/16/24 09:16 Urine Ketones (Auto) Negative 02/16/24 09:16 Urine Blood (Auto) 10 Serge/uL 02/16/24 09:16 Urine Nitrite (Auto) Positive 02/16/24 09:16 Urine Bilirubin (Auto) 0 mg/dL 02/16/24 09:16 Urine Urobilinogen (Auto) 0.2 mg/dL 02/16/24 09:16 Leukocyte Esterase (Auto) 15 Abby/uL 02/16/24 09:16 Assessment & Plan Assessment & Plan Orders: Orders AMB Urinalysis Automated Today Z13.9 - Encounter for screening, unspecified Coding
--- OUTSIDE RECORDS SUMMARY | 2024-02-16 09:05 | XMS_ITS | Continuity of Care Document ---
Author Name [facility] Organization [facility] Care Team Providers Care Cathodic Protection Technician Name Role Phone [facility] Unavailable Unavailable Problems Combined list of problems from Department of Defense and Veterans Affairs facilities. It does not include entries that were removed or entered in error. Problem Status Onset Date Problem Type Date of Resolution Comments Source Bladder cancer Active 02/09/19 17 Condition May 21, 2023 Entered By: SUBHA VELAZQUEZ Comment[facility] Entered By: ISA CUMMINS Comment: cystoscopies q3 mos 2018Sep 2022 Entered By: MIYA LAU Comment: Status post 2 surgeries and BCG treatmentSep 2022 Entered By: MIAY LAU Comment: Recurrence of tumor chemo for 6 weeks [facility] Sleep apnea Active 02/09/19 17 Condition Feb 13, 2017 Entered By: ISA CUMMINS Comment: does not tolerate cpap [facility] Hard of hearing Active 02/09/19 15 Condition Sep 24, 2023 Entered By: SUBHA VELAZQUEZ Comment: bilateral hearing aides [facility] Allergic Rhinitis (SCT [id number]) Active Condition [facility] Back pain Active Condition [facility] Central sleep apnea Active Condition [facility] Chronic post-traumatic stress disorder Active Condition [facility] Contact with and (Suspected) Exposure to Water Pollution Active Condition May 23, 2022 Entered By: KEISHA SCOTT Comment: [employer] [facility] COPD - Chronic Obstructive Pulmonary Disease (SCT [id number]) Active Condition Jul 17, 2020 Entered By: LEONID QURESHI Comment: asthma [facility] Exposure to potentially hazardous substance Active Condition May 21, 2023 Entered By: SUBHA VELAZQUEZ Comment: +AO, +[facility] Hyperlipidemia Active Condition [facility] Lacunar infarction Active Condition May 21, 2023 Entered By: SUBHA VELAZQUEZ Comment: on MRI, silent, has seen [facility] neuro- Dr. 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 Condition Apr 07, 2016 Entered By: DELON GALEANA Comment: recent diagnosis of Bladder [facility] [place] Obstructive sleep apnea Active Condition [facility] Peripheral vascular disease Active Condition [facility] Type C viral hepatitis Active Condition May 21, 2023 Entered By: SUBHA VELAZQUEZ Comment: developed during , cleared on its own [facility] Diagnosis: ICD-10-CM F43.10 Post-traumatic stress disorder, unspecified Active Diagnosis [facility] Diagnosis: ICD-10-CM G47.39 Other sleep apnea Active Diagnosis [facility] Diagnosis: ICD-10-CM G47.33 Obstructive sleep apnea (adult) (pediatric) Active Diagnosis [facility] Diagnosis: ICD-10-CM Z46.1 Encounter for fitting and adjustment of hearing aid Active Diagnosis [facility] Diagnosis: ICD-10-CM Z04.89 Encounter for examination and observation for oth reasons Active Diagnosis [facility] Diagnosis: ICD-10-CM 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, left eye Active Diagnosis [facility] Diagnosis: ICD-10-CM R55 Syncope and collapse Active Diagnosis [facility] Diagnosis: ICD-10-CM Z13.6 Encounter for screening for cardiovascular disorders Active Diagnosis [facility] Diagnosis: ICD-10-CM Z77.29 Contact with and exposure to other hazardous substances Active Diagnosis [facility] Diagnosis: ICD-10-CM B19.20 Unspecified viral hepatitis C without hepatic coma Active Diagnosis [facility] Diagnosis: ICD-10-CM Z46.0 Encounter for fit/adjst of spectacles and contact lenses Active Diagnosis [facility] Diagnosis: ICD-10-CM L71.8 Other rosacea Active Diagnosis [facility] Diagnosis: ICD-10-CM G47.37 Central sleep apnea in conditions classified elsewhere Active Diagnosis [facility] Diagnosis: ICD-10-CM R03.0 Elevated blood-pressure reading, w/o diagnosis of htn Active Diagnosis [facility] Diagnosis: ICD-10-CM R51.9 Headache, unspecified Active Diagnosis [facility] Diagnosis: ICD-10-CM G47.30 Sleep apnea, unspecified Active Diagnosis [facility] Medications Combined list of outpatient medications from Department of Defense and Veterans Affairs facilities.Medications provided include 1) outpatient medications from the last 15 months, and 2) patient-reported medications. Medication Details Route Status Patient Instructions Prescription Expires Prescription Number Last Dispense Date Ordering Provider Order Date Order Qty Source ACETAMINOPH EN TAB TAKE BY MOUTH ORAL ACTIVE [facility] ALBUTEROL 90MCG/ACTUA T (CFC-F) INHL,ORAL,8 .5GM DOSE COUNTER INHALE 2 PUFFS BY MOUTH EVERY 6 HOURS NEEDED FOR BRONCHOS PASM PREVENTI ON RESPIR ATORY (INHAL ATION) 09/03/2023 [id number] [facility] DORIANMED JAWED 2022 1 [facility] AMOXICILLIN TRIHYDRATE 500MG CAP TAKE FOUR CAPSULES BY MOUTH 1 HOUR PRIOR TO DENTAL APPOINTM ENT ORAL ACTIVE 10/29/2024 [id number] RAFIA ESQUIVEL 2023 12 [facility] AMOXICILLIN TRIHYDRATE 500MG CAP TAKE FOUR CAPSULES BY MOUTH ONE TIME 30-60 MINUTES BEFORE DENTAL PROCEDUR E ORAL 05/27/2023 [id number] 4 [facility]ON [facility] 2023 12 [facility] ASPIRIN 81MG TAB,EC TAKE ONE TABLET BY MOUTH DAILY ORAL ACTIVE CUMMINS,2017 [facility] BUDESONIDE 160MCG/FORM OTEROL FUM 4.5MCG/SPRA Y INHL,ORAL,1 0.2GM INHALE 2 PUFFS BY MOUTH TWICE DAILY - RINSE MOUTH AFTER USE RESPIR ATORY (INHAL ATION) ACTIVE 09/24/2024 [id number] 4 FURCOLO,T MILO 2023 3 [facility] BUDESONIDE 160MCG/FORM OTEROL FUM 4.5MCG/SPRA Y INHL,ORAL,1 0.2GM INHALE 2 PUFFS BY MOUTH TWICE DAILY - RINSE MOUTH AFTER USE RESPIR ATORY (INHAL ATION) 09/03/2023 [id number] 3 [facility] AMMED JAWED 2022 1 [facility] CHOLECALCIF ALEYDA 50MCG (2,000UNIT) TAB TAKE ONE TABLET BY MOUTH DAILY ORAL ACTIVE CUMMINS,2017 [facility] EZETIMIBE 10MG TAB TAKE ONE TABLET BY MOUTH ONCE DAILY TO LOWER CHOLESTE ROL ORAL ACTIVE 09/24/2024 [id number] FURCOLO,T MILO 2023 90 [facility] EZETIMIBE 10MG TAB TAKE ONE TABLET BY MOUTH ONCE DAILY TO LOWER CHOLESTE ROL ORAL DISCONT INUED 09/03/2023 [id number] 4 [facility] AMMED JAWED 2022 90 [facility] FISH OIL CAP,ORAL TAKE 1200 MG BY MOUTH DAILY ORAL ACTIVE ,2017 [facility] GLUCOSAMINE /CHONDROITI N CAP/TAB TAKE ONE TABLET BY MOUTH DAILY ORAL ACTIVE ,2017 [facility] METOPROLOL SUCCINATE 25MG TAB,SA TAKE ONE TABLET BY MOUTH ONCE DAILY FOR BLOOD PRESSURE /HEART ORAL ACTIVE 09/24/2024 [id number] FURCOLO,T MILO 2023 90 [facility] METOPROLOL SUCCINATE 25MG TAB,SA TAKE ONE TABLET BY MOUTH ONCE DAILY FOR BLOOD PRESSURE /HEART ORAL DISCONT INUED 09/03/2023 [id number] ZEE LAU JAWED 2022 90 [facility] THIAMINE 50MG TAB TAKE ONE TABLET BY MOUTH ONCE DAILY FOR DEFICIEN CY IN THIAMINE OR VITAMIN B1 ORAL ACTIVE 03/11/2024 [id number] ZEE LAU AMMED JAWED 2023 90 [facility] Allergies, Adverse Reactions, Alerts Combined list of allergies from Department of Defense and Veterans Affairs facilities. It does not include entries that were removed or entered in error. Substance Category Reaction Severity Reaction type Status Date Reported Comments Source ATORVASTATIN Propensity to adverse reactions to drug (finding) Muscle pain active 9 [facility] Immunizations Combined list of available immunizations from the Department of Defense and Veterans Affairs facilities. Immunization Series Date Given Administered By Site Reaction Lot Number CVX Code Drug Forensics Analyst Status Comments Source INFLUENZA, HIGH-DOSE, TRIVALENT, PF 5 2022 135 complet ed [facility] INFLUENZA, UNSPECIFIED FORMULATION 2022 88 complet [facility] INFLUENZA, HIGH-DOSE, TRIVALENT, PF 4 2021 135 complet ed [facility] INFLUENZA, UNSPECIFIED FORMULATION 2021 88 complet ed [facility] COVID-19 (MODERNA), MRNA, LNP-S, PF, 100 MCG OR 50 MCG DOSE 3 2020 207 complet ed [facility] PNEUMOCOCCAL POLYSACCHARID E PPV23 1 2020 33 complet ed [facility] INFLUENZA, MDCK, QUADRIVALENT, PF 3 2020 171 complet ed [facility] COVID-19 (MODERNA), MRNA, LNP-S, PF, 100 MCG/0.5 ML DOSE 2 2020 207 complet ed MOD; [id number]; 1 [facility] COVID-19 (MODERNA), MRNA, LNP-S, PF, 100 MCG/0.5 ML DOSE 1 2020 207 complet ed MOD; [id number]; 1 [facility] INFLUENZA, HIGH-DOSE, QUADRIVALENT 2019 197 complet ed [facility] ZOSTER RECOMBINANT 2 2019 187 complet ed [facility] ZOSTER RECOMBINANT 1 2018 187 complet ed [facility] INFLUENZA, SEASONAL, INJECTABLE 2017 141 complet ed [facility] PNEUMOCOCCAL POLYSACCHARID E PPV23 2017 33 complet ed [facility] INFLUENZA, SEASONAL, INJECTABLE 2016 141 complet ed Outside Provider [facility] INFLUENZA, SPLIT VIRUS, QUADRIVALENT, PF 2 2015 150 complet ed [facility] FLU,3 YRS (HISTORICAL) 2015 88 complet ed [facility] ZOSTER LIVE 1 2015 121 complet ed [facility] INFLUENZA, SPLIT VIRUS, TRIVALENT, PRESERVATIVE 1 2014 141 complet ed [facility] FLU,3 YRS (HISTORICAL) 2014 88 complet ed [facility] DTAP, UNSPECIFIED FORMULATION 2014 107 complet ed Site: Right Deltoid [facility] PNEUMOCOCCAL CONJUGATE PCV 13 2014 133 complet ed no [facility] FLU,3 YRS (HISTORICAL) 2013 88 complet ed [facility] ZOSTER (HISTORICAL) 2012 121 complet ed [facility] Results Combined list of recent chemistry, hematology and other laboratory results from Department of Defense and Veterans Affairs, ranging from 15 months to all on record, depending upon the facility. Order Name Results Value Reference Range Date Interpretation Specimen Comments Source LIPID PANEL FASTING CHOLESTERO L [MASS/VOLU ME] IN SERUM OR PLASMA 208 mg/dL 09/16 H Specimen Type: SERUM No comment entered. Ordering Provider: JAKUB VELAZQUEZ Report Released Date/Time: May 21, 2023 03:02 PM Reporting Lab: [facility] [place] [address] [address] Performing Lab: [facility] [address] [address] [facility] LIPID PANEL FASTING TRIGLYCERI DE [MASS/VOLU ME] IN SERUM OR PLASMA 154 mg/dL 0 - 150 09/16 H Specimen Type: SERUM No comment entered. Ordering Provider: JAKUB VELAZQUEZ Report Released Date/Time: May 21, 2023 03:02 PM Reporting Lab: [facility] [address] Performing Lab: [facility] [address] [address] [facility] LIPID PANEL FASTING CHOLESTERO L IN LDL [MASS/VOLU ME] IN SERUM OR PLASMA BY CALCPAKOO N 139 mg/dL 0 - 129 09/16 H Specimen Type: SERUM No comment entered. Ordering Provider: JAKUB VELAZQUEZ Report Released Date/Time: May 21, 2023 03:02 PM Reporting Lab: [facility] [place] [address] [address] Performing Lab: [facility] [place] [address] [address] [facility] LIPID PANEL FASTING CHOLESTERO L.TOTAL/CH OLESTEROL IN HDL [MASS RATIO] IN SERUM OR PLASMA 5.5 09/16 Specimen Type: SERUM No comment entered. Ordering Provider: JAKUB VELAZQUEZ Report Released Date/Time: May 21, 2023 03:02 PM Reporting Lab: [facility] [address] Performing Lab: [facility] [address] [facility] [address] [facility] LIPID PANEL FASTING CHOLESTERO L IN HDL [MASS/VOLU ME] IN SERUM OR PLASMA 38 mg/dL 40 - 60 09/16 L Specimen Type: SERUM No comment entered. Ordering Provider: JAKUB VELAZQUEZ Report Released Date/Time: May 21, 2023 03:02 PM Reporting Lab: [facility] [address] [facility] [address] Performing Lab: [facility] [address] [address] [facility] BASIC METABOLI C PANEL (non-fas ting) UREA NITROGEN [MASS/VOLU ME] IN SERUM OR PLASMA 30 mg/dL 7 - 25 09/16 H Specimen Type: SERUM No comment entered. Ordering Provider: JAKUB VELAZQUEZ Report Released Date/Time: May 21, 2023 03:02 PM Reporting Lab: [address] [address] Performing Lab: [facility] [address] [address] [facility] BASIC METABOLI C PANEL (non-fas ting) GLUCOSE [MASS/VOLU ME] IN SERUM OR PLASMA 93 mg/dL 65 - 100 09/16 Specimen Type: SERUM No comment entered. Ordering Provider: JAKUB VELAZQEUZ Report Released Date/Time: May 21, 2023 03:02 PM Reporting Lab: [facility] [address] [address] Performing Lab: [facility] [address] [address] [facility] BASIC METABOLI C PANEL (non-fas ting) SODIUM [MOLES/VOL UME] IN SERUM OR PLASMA 139 mmol/L 135 - 145 09/16 Specimen Type: SERUM No comment entered. Ordering Provider: FURCOLO,TIN A Report Released Date/Time: May 21, 2023 03:02 PM Reporting Lab: [facility] [place] [facility] [address] [facility] [address] Performing Lab: [facility] [place] [facility] [address] [facility] [address] [facility] BASIC METABOLI C PANEL (non-fas ting) POTASSIUM [MOLES/VOL UME] IN SERUM OR PLASMA 4.3 mmol/L 3.5 - 5.0 09/16 Specimen Type: SERUM No comment entered. Ordering Provider: JAKUB VELAZQUEZ Report Released Date/Time: May 21, 2023 03:02 PM Reporting Lab: [facility] [place] [address] [address] Performing Lab: [facility] [place] [address] [address] [facility] [place] BASIC METABOLI C PANEL (non-fas ting) CHLORIDE [MOLES/VOL UME] IN SERUM OR PLASMA 106 mmol/L 100 - 110 09/16 Specimen Type: SERUM No comment entered. Ordering Provider: JAKUB VELAZQUEZ Report Released Date/Time: May 21, 2023 03:02 PM Reporting Lab: [facility] [place] [address] [address] Performing Lab: [facility] [place] [address] [address] [facility] BASIC METABOLI C PANEL (non-fas ting) CARBON DIOXIDE, TOTAL [MOLES/VOL UME] IN SERUM OR PLASMA 26 meq/L 20 - 30 09/16 Specimen Type: SERUM No comment entered. Ordering Provider: JAKUB VELAZQUEZ Report Released Date/Time: May 21, 2023 03:02 PM Reporting Lab: [facility] [place] [address] [address] Performing Lab: [facility] [place] [address] [address] [facility] BASIC METABOLI C PANEL (non-fas ting) CREATININE [MASS/VOLU ME] IN SERUM OR PLASMA 0.99 mg/dL 0.50 - 1.40 09/16 Specimen Type: SERUM No comment entered. Ordering Provider: JAKUB VELAZQUEZ Report Released Date/Time: May 21, 2023 03:02 PM Reporting Lab: [address] [address] Performing Lab: [address] [address] [facility] BASIC METABOLI C PANEL (non-fas ting) GLOMERULAR FILTRATION RATE/1.73 SQ M.PREDICTE D [VOLUME RATE/AREA] IN SERUM, PLASMA OR BLOOD BY CREATININE -BASED FORMULA (CKD-EPI 2020) 77 mL/min 60 09/16 Specimen Type: SERUM No comment entered. Ordering Provider: JAKUB VELAZQUEZ Report Released Date/Time: May 21, 2023 03:02 PM Reporting Lab: [address] [address] Performing Lab: [address] [address] [facility] VITAMIN B-1 (THIAMIN E)-(QU) THIAMINE [MOLES/VOL UME] IN SERUM OR PLASMA 8 nmol/L 8 - 30 03/04 Specimen Type: PLASMA Comment: Vitamin supplementa tion within 24 hours prior to blood draw may affect the accuracy of the results. This test was developed and its analytical performance characteris tics have been determined by [employer] [place], [place]. It has not been cleared or approved by the U.S. Food and Drug Administrat ion. This assay has been validated pursuant to the CLIA regulations and is used for clinical purposes. Test Performed by [employer], [facility] [place], [address] [place] [address] Chris Alba M.D., Ph.D., Director of Laboratorie s , CLIA [id number] TEST PERFORMED AT: , Ordering Provider: CAROL LAU Report Released Date/Time: Feb 04, 2023 02:43 PM Reporting Lab: [facility] [place] [facility] [address] [facility] [address] Performing Lab: [facility] [place] [facility] [address] [address] [facility] [place] [facility] SYPHILIS ABS W/RFLX REAGIN AB [PRESENCE] IN SERUM BY RPR Non Reactive 03/04 Specimen Type: SERUM Comment: No laboratory evidence of syphilis infection. If recent exposure is suspected, re-draw sample in 2-4 weeks and repeat algorithm. Testing performed by T. pallidum specific immunoassay . Ordering Provider: CAROL LAU Report Released Date/Time: Feb 04, 2023 02:43 PM Reporting Lab: [facility] [place] [facility] [address] [facility] [address] Performing Lab: [facility] [place] [facility] [address] [facility] [address] [facility] [place] [facility] VITAMIN B12 COBALAMIN (VITAMIN B12) [MASS/VOLU ME] IN SERUM OR PLASMA 366 pg/mL 200 - 900 03/04 Specimen Type: SERUM No comment entered. Ordering Provider: CAROL LAU Report Released Date/Time: Feb 04, 2023 02:43 PM Reporting Lab: [facility] [place] [facility] [address] [facility] [address] Performing Lab: [facility] [place] [facility] [address] [facility] [address] [facility] [facility] LIPID PANEL FASTING CHOLESTERO L [MASS/VOLU ME] IN SERUM OR PLASMA 194 mg/dL 03/04 Specimen Type: SERUM No comment entered. Ordering Provider: CAROL LAU Report Released Date/Time: Feb 04, 2023 02:43 PM Reporting Lab: [facility] [place] [facility] [address] [facility] [address] Performing Lab: [facility] [address] [facility] [address] [facility] [facility] LIPID PANEL FASTING TRIGLYCERI DE [MASS/VOLU ME] IN SERUM OR PLASMA 126 mg/dL 0 - 150 03/04 Specimen Type: SERUM No comment entered. Ordering Provider: CAROL LAU Report Released Date/Time: Feb 04, 2023 02:43 PM Reporting Lab: [facility] [place] [facility] [address] [facility] [address] Performing Lab: [facility] [place] [facility] [address] [facility] [address] [facility] [place] [facility] LIPID PANEL FASTING CHOLESTERO L IN LDL [MASS/VOLU ME] IN SERUM OR PLASMA BY CALCULATIO N 126 mg/dL 0 - 129 03/04 Specimen Type: SERUM No comment entered. Ordering Provider: CAROL LAU Report Released Date/Time: Feb 04, 2023 02:43 PM Reporting Lab: [facility] [place] [address] [address] Performing Lab: [facility] [place] [address] [address] [facility] [place] [facility] LIPID PANEL FASTING CHOLESTERO L.TOTAL/CH OLESTEROL IN HDL [MASS RATIO] IN SERUM OR PLASMA 4.5 03/04 Specimen Type: SERUM No comment entered. Ordering Provider: CAROL LAU Report Released Date/Time: Feb 04, 2023 02:43 PM Reporting Lab: [facility] [place] [facility] [address] [facility] [address] Performing Lab: [facility] [place] [facility] [address] [facility] [address] [facility] [place] [facility] LIPID PANEL FASTING CHOLESTERO L IN HDL [MASS/VOLU ME] IN SERUM OR PLASMA 43 mg/dL 40 - 60 03/04 Specimen Type: SERUM No comment entered. Ordering Provider: CAROL LAU Report Released Date/Time: Feb 04, 2023 02:43 PM Reporting Lab: [facility] [place] [facility] [address] [facility] [address] Performing Lab: [facility] [place] [facility] [address] [facility] [address] [facility] [place] [facility] BASIC METABOLI C PANEL (fasting ) UREA NITROGEN [MASS/VOLU ME] IN SERUM OR PLASMA 22 mg/dL 7 - 25 03/04 Specimen Type: SERUM No comment entered. Ordering Provider: CAROL LAU Report Released Date/Time: Feb 04, 2023 02:43 PM Reporting Lab: [facility] [place] [facility] [address] [facility] [address] Performing Lab: [facility] [place] [address] [address] [facility] BASIC METABOLI C PANEL (fasting ) GLUCOSE [MASS/VOLU ME] IN SERUM OR PLASMA 84 mg/dL 65 - 100 03/04 Specimen Type: SERUM No comment entered. Ordering Provider: CAROL LAU Report Released Date/Time: Feb 04, 2023 02:43 PM Reporting Lab: [facility] [place] [address] [address] Performing Lab: [facility] [place] [address] [address] [facility] BASIC METABOLI C PANEL (fasting ) SODIUM [MOLES/VOL UME] IN SERUM OR PLASMA 140 mmol/L 135 - 145 03/04 Specimen Type: SERUM No comment entered. Ordering Provider: CAROL LAU Report Released Date/Time: Feb 04, 2023 02:43 PM Reporting Lab: [facility] [place] [facility] [address] [facility] [address] Performing Lab: [facility] [place] [facility] [address] [facility] [address] [facility] BASIC METABOLI C PANEL (fasting ) POTASSIUM [MOLES/VOL UME] IN SERUM OR PLASMA 4.6 mmol/L 3.5 - 5.0 03/04 Specimen Type: SERUM No comment entered. Ordering Provider: CAROL LAU Report Released Date/Time: Feb 04, 2023 02:43 PM Reporting Lab: [facility] [place] [facility] [address] [facility] [address] Performing Lab: [facility] [place] [facility] [address] [facility] [address] [facility] [place] [facility] BASIC METABOLI C PANEL (fasting ) CHLORIDE [MOLES/VOL UME] IN SERUM OR PLASMA 104 mmol/L 100 - 110 03/04 Specimen Type: SERUM No comment entered. Ordering Provider: CAROL LAU Report Released Date/Time: Feb 04, 2023 02:43 PM Reporting Lab: [facility] [place] [facility] [address] [facility] [address] Performing Lab: [facility] [place] [facility] [address] [facility] [address] [facility] [place] [facility] BASIC METABOLI C PANEL (fasting ) CARBON DIOXIDE, TOTAL [MOLES/VOL UME] IN SERUM OR PLASMA 25 meq/L 20 - 30 03/04 Specimen Type: SERUM No comment entered. Ordering Provider: CAROL LAU Report Released Date/Time: Feb 04, 2023 02:43 PM Reporting Lab: [facility] [address] [facility] [address] Performing Lab: [facility] [address] [facility] [address] [facility] BASIC METABOLI C PANEL (fasting ) CREATININE [MASS/VOLU ME] IN SERUM OR PLASMA 1.01 mg/dL 0.50 - 1.40 03/04 Specimen Type: SERUM No comment entered. Ordering Provider: CAROL LAU Report Released Date/Time: Feb 04, 2023 02:43 PM Reporting Lab: [facility] [address] [facility] [address] Performing Lab: [facility] [address] [facility] [address] [facility] BASIC METABOLI C PANEL (fasting ) GLOMERULAR FILTRATION RATE/1.73 SQ M.PREDICTE D [VOLUME RATE/AREA] IN SERUM, PLASMA OR BLOOD BY CREATININE -BASED FORMULA (CKD-EPI 2020) 76 mL/min 60 03/04 Specimen Type: SERUM No comment entered. Ordering Provider: CAROL LAU Report Released Date/Time: Feb 04, 2023 02:43 PM Reporting Lab: [facility] [address] [address] Performing Lab: [facility] [address] [facility] [address] [facility] VITAMIN D (25-OH) 25-HYDROXY VITAMIN D3 [MASS/VOLU ME] IN SERUM OR PLASMA 42 ng/mL 20 - 50 03/04 Specimen Type: SERUM No comment entered. Ordering Provider: CAROL LAU Report Released Date/Time: Feb 04, 2023 02:43 PM Reporting Lab: [facility] [address] [facility] [address] Performing Lab: [facility] [address] [address] [facility] MAGNESIU M MAGNESIUM [MASS/VOLU ME] IN SERUM OR PLASMA 2.1 mg/dL 1.6 - 2.6 03/04 Specimen Type: SERUM No comment entered. Ordering Provider: CAROL LAU Report Released Date/Time: Feb 04, 2023 02:43 PM Reporting Lab: [facility] [address] [facility] [address] Performing Lab: [facility] [address] [address] [facility] CALCIUM CALCIUM [MASS/VOLU ME] IN SERUM OR PLASMA 9.0 mg/dL 8.5 - 10.2 03/04 Specimen Type: SERUM No comment entered. Ordering Provider: CAROL LAU Report Released Date/Time: Feb 04, 2023 02:43 PM Reporting Lab: [facility] [address] [facility] [address] Performing Lab: [facility] [address] [facility] [address] [facility] Vital Signs Combined list of inpatient and outpatient Vital Signs from Department of Defense and Veterans Affairs, ranging from 12 months to all on record, depending upon the facility. Vital Sign Value Date Comments Source SYSTOLIC BLOOD PRESSURE 119 12/08/19 08:52:59 [facility] DIASTOLIC BLOOD PRESSURE 68 08:52:59 [facility] PULSE OXIMETRY 96 12/08/2023 08:52:59 [facility] PULSE 68 12/08/2023 08:52:59 [facility] RESPIRATION 17 12/08/2023 08:52:59 [facility] SYSTOLIC BLOOD PRESSURE 119 09/24/19 08:55:42 [facility] DIASTOLIC BLOOD PRESSURE 79 024 08:55:42 [facility] PULSE OXIMETRY 96 09/24/2023 08:55:42 [facility] WEIGHT 233 09/24/2023 08:55:42 [facility] BMI 33kg/m2 09/24/2023 08:55:42 [facility] PAIN 2 09/24/2023 08:55:42 [facility] TEMPERATURE 97.3 09/24/2023 08:55:42 [facility] PULSE 68 09/24/2023 08:55:42 [facility] RESPIRATION 16 09/24/2023 08:55:42 [facility] SYSTOLIC BLOOD PRESSURE 121 05/21/19 24 13:53:16 [facility] DIASTOLIC BLOOD PRESSURE 76 024 13:53:16 [facility] PULSE OXIMETRY 95 05/21/2023 13:53:16 [facility] WEIGHT 230 05/21/2023 13:53:16 [facility] BMI 32kg/m2 05/21/2023 13:53:16 [facility] PAIN 0 05/21/2023 13:53:16 [facility] TEMPERATURE 97.6 05/21/2023 13:53:16 [facility] PULSE 78 05/21/2023 13:53:16 [facility] RESPIRATION 16 05/21/2023 13:53:16 [facility] SYSTOLIC BLOOD PRESSURE 139 04/17/19 11:04:13 [facility] DIASTOLIC BLOOD PRESSURE 66 024 11:04:13 [facility] PULSE OXIMETRY 96 04/17/2023 11:04:13 [facility] WEIGHT 232.3 04/17/2023 11:04:13 [facility] PAIN 0 04/17/2023 11:04:13 [facility] TEMPERATURE 97.4 04/17/2023 11:04:13 [facility] PULSE 72 04/17/2023 11:04:13 [facility] PULSE OXIMETRY 96 03/10/2023 08:07:49 [facility] WEIGHT 231 03/10/2023 08:07:49 [facility] BMI 32kg/m2 03/10/2023 08:07:49 [facility] TEMPERATURE 97.1 03/10/2023 08:07:49 [facility] PULSE 84 03/10/2023 08:07:49 [facility] RESPIRATION 16 03/10/2023 08:07:49 [facility] Encounters Combined list of: 1) Encounters from Department of Veterans Affairs facilities going back up to thelast 18 months. 2) Encounters from the Department of Defense facilities going back up to 280 months. Location Location Details Encounter Type Encounter Number Reason For Visit Attending Provider ADM Date DC Date Status Disposition Source [facility] Outpatient Encounter [id number] 08/18 [facility] PSYTX W PT 45 MINUTES [id number] Diagnos is: ICD-10- CM F43.10 Post-tr aumatic stress disorde r, unspeci fied
TORMEY,CAMERON OTHY 08/19 [facility] HEARING AID FITTING/CH ECKING [id number] Diagnos is: ICD-10- CM Z46.1 Encount er for fitting and adjustm ent of hearing aid<br/ > SENIOR,PRIETO OLE L 08/26 [facility] PSYTX W PT 45 MINUTES [id number] Diagnos is: ICD-10- CM F43.10 Post-tr aumatic stress disorde r, unspeci fied
TORMEY,CAMERON OTHY 08/26 [facility] HEARING AID REPAIR/MOD IFYING [id number] Diagnos is: ICD-10- CM Z46.1 Encount er for fitting and adjustm ent of hearing aid<br/ > SENIOR,PRIETO OLE L 09/02 [facility] OFFICE O/P EST MOD 30-39 MIN [id number] Diagnos is: ICD-10- CM F43.10 Post-tr aumatic stress disorde r, unspeci fied
AHMED,MOHA MMED JAWED 09/02 [facility] [id number] 09/04 [facility] PSYTX W PT 30 MINUTES [id number] Diagnos is: ICD-10- CM F43.10 Post-tr aumatic stress disorde r, unspeci fied
TORMEY,CAMERON OTHY 09/09 [facility] En[facility] [id number] 09/16 [facility] PSYTX W PT 45 MINUTES [id number] Diagnos is: ICD-10- CM F43.10 Post-tr aumatic stress disorde r, unspeci fied
TORMEY,CAMERON OTHY 09/16 [facility] PSYTX W PT 60 MINUTES [id number] Diagnos is: ICD-10- CM F43.10 Post-tr aumatic stress disorde r, unspeci fied
TORMEY,CAMERON OTHY 09/23 [facility] PSYTX W PT 60 MINUTES [id number] Diagnos is: ICD-10- CM F43.10 Post-tr aumatic stress disorde r, unspeci fied
TORMEY,CAMERON OTHY 09/30 [facility] En[facility] [id number] 10/07 [facility] PSYTX W PT 60 MINUTES [id number] Diagnos is: ICD-10- CM F43.10 Post-tr aumatic stress disorde r, unspeci fied
TORMEY,CAMERON OTHY 10/14 [facility] Outpatient Encounter [id number] 10/27 [facility] OFFICE O/P EST LOW 20-29 MIN [id number] Diagnos is: ICD-10- CM G47.37 Central sleep apnea in conditi ons classif ied elsewhe re
RAUL HUERTA 11/04 [facility] [id number] 11/05 [facility] Outpatient Encounter [id number] 11/23 [facility] PSYTX W PT 45 MINUTES [id number] Diagnos is: ICD-10- CM F43.10 Post-tr aumatic stress disorde r, unspeci fied
TORMEY,CAMERON OTHY 11/25 [facility] Outpatient Encounter [id number] 11/26 [facility] [facility] PSYTX W PT 45 MINUTES [id number] Diagnos is: ICD-10- CM F43.10 Post-tr aumatic stress disorde r, unspeci fied
TORMEY,CAMERON OTHY 12/02 [facility] Outpatient Encounter [id number] 12/08 [facility] HEARING AID REPAIR/MOD IFYING [id number] Diagnos is: ICD-10- CM Z46.1 Encount er for fitting and adjustm ent of hearing aid<br/ > SENIOR,PRIETO OLE L 12/09 [facility] Out[facility] En[facility] [id number] 12/09 [facility] PSYTX W PT 60 MINUTES [id number] Diagnos is: ICD-10- CM F43.10 Post-tr aumatic stress disorde r, unspeci fied
TORMEY,CAMERON OTHY 12/09 [facility] Out[facility] En[facility] [id number] 12/11 [facility] PSYTX W PT 45 MINUTES [id number] Diagnos is: ICD-10- CM F43.10 Post-tr aumatic stress disorde r, unspeci fied
TORMEY,CAMERON OTHY 12/16 [facility] Out[facility] Encounter [id number] 12/18 [facility] PSYTX W PT 45 MINUTES [id number] Diagnos is: ICD-10- CM F43.10 Post-tr aumatic stress disorde r, unspeci fied
TORMEY,CAMERON OTHY 12/23 [facility] PSYTX W PT 45 MINUTES [id number] Diagnos is: ICD-10- CM F43.10 Post-tr aumatic stress disorde r, unspeci fied
TORMEY,CAMERON OTHY 12/30 [facility] PSYTX W PT 45 MINUTES [id number] Diagnos is: ICD-10- CM F43.10 Post-tr aumatic stress disorde r, unspeci fied
TORMEY,CAMERON OTHY 01/06 [facility] HEARING AID REPAIR/MOD IFYING [id number] Diagnos is: ICD-10- CM Z46.1 Encount er for fitting and adjustm ent of hearing aid<br/ > NIDA MONTESINOS 01/07 [facility] Outpatient Encounter [id number] 01/08 [facility] OFFICE O/P EST MOD 30-39 MIN [id number] Diagnos is: ICD-10- CM G47.33 Obstruc tive sleep apnea (adult) (pediat hossein)
BENTLEY DE LEON 01/09 [place] [facility] PSYTX W PT 45 MINUTES [id number] Diagnos is: ICD-10- CM F43.10 Post-tr aumatic stress disorde r, unspeci fied
TORMEY,CAMERON OTHY 01/13 [facility] PSYTX W PT 45 MINUTES [id number] Diagnos is: ICD-10- CM F43.10 Post-tr aumatic stress disorde r, unspeci fied
TORMEY,CAMERON OTHY 01/20 [facility] [place] [facility] POLYSOM 6/>YRS CPAP 4/> PARM [id number] Diagnos is: ICD-10- CM G47.30 Sleep apnea, unspeci fied
NICOLETTE MILLIGAN A 01/24 [place] [facility] Out[facility] En[facility] [id number] 01/27 [facility] OFFICE O/P EST MOD 30-39 MIN [id number] Diagnos is: ICD-10- CM R51.9 Headach e, unspeci fied
MARIOLINDAZEETerri MMED JAWED 02/04 [facility] PSYTX W PT 45 MINUTES [id number] Diagnos is: ICD-10- CM F43.10 Post-tr aumatic stress disorde r, unspeci fied
TORMEY,CAMERON OTHY 02/10 [facility] HEARING AID REPAIR/MOD IFYING [id number] Diagnos is: ICD-10- CM Z46.1 Encount er for fitting and adjustm ent of hearing aid<br/ > NIDA MONTESINOS 02/11 [facility] MTMS BY PHARM ADDL 15 MIN [id number] Diagnos is: ICD-10- CM R03.0 Elevate d blood-p ressure reading , w/o diagnos is of htn<br/ > GDCATHERINE OLVERADI A 02/11 [facility] Out[facility] En[facility] [id number] ADITYA LAU MMED JAWED 02/11 [facility] Out[facility] Encounter [id number] 02/25 [facility] PSYTX W PT 45 MINUTES [id number] Diagnos is: ICD-10- CM F43.10 Post-tr aumatic stress disorde r, unspeci fied
TORMEY,CAMERON OTHY 03/03 [facility] MTMS BY PHARM ADDL 15 MIN [id number] Diagnos is: ICD-10- CM R03.0 Elevate d blood-p ressure reading , w/o diagnos is of htn<br/ > GDULA,VIVIAN A 03/04 [facility] OFFICE O/P EST MOD 30 MIN [id number] Diagnos is: ICD-10- CM F43.10 Post-tr aumatic stress disorde r, unspeci fied
ADITYA LAU MMED JAWED 03/10 [facility] PSYTX W PT 45 MINUTES [id number] Diagnos is: ICD-10- CM F43.10 Post-tr aumatic stress disorde r, unspeci fied
TORMEY,CAMERON OTHY 03/10 [facility] PSYTX W PT 45 MINUTES [id number] Diagnos is: ICD-10- CM F43.10 Post-tr aumatic stress disorde r, unspeci fied
TORMEY,CAMERON OTHY 03/24 [facility] HEARING AID REPAIR/MOD IFYING [id number] Diagnos is: ICD-10- CM Z46.1 Encount er for fitting and adjustm ent of hearing aid<br/ > NIDA MONTESINOS 04/02 [facility] PSYTX W PT 45 MINUTES [id number] Diagnos is: ICD-10- CM F43.10 Post-tr aumatic stress disorde r, unspeci fied
TORMEY,CAMERON OTHY 04/07 [facility] Outpatient Encounter [id number] 04/09 [facility] OFF[facility] O/P EST MOD 30 MIN [id number] Diagnos is: ICD-10- CM G47.33 Obstruc tive sleep apnea (adult) (pediat hossein)
BENTLEY DE LEON 04/16 [place] [facility] En[facility] [id number] 04/20 [facility] Out[facility] Encounter [id number] 04/20 [facility] TTE W/DOPPLER COMPLETE [id number] Diagnos is: ICD-10- CM G47.37 Central sleep apnea in conditi ons classif ied elsewhe re
TYSON UREÑA 04/21 [facility] Outpatient Encounter [id number] 04/21 [facility] OFFICE O/P EST MOD 30 MIN [id number] Diagnos is: ICD-10- CM G47.33 Obstruc tive sleep apnea (adult) (pediat hossein)
JEZ,CHA J LUIS 04/21 [place] [place] [facility] Outpatient Encounter [id number] 04/22 [facility] Outpatient Encounter [id number] 04/26 [facility] OFFICE/[place] [id number] [id number] Diagnos is: ICD-10- CM G47.33 Obstruc tive sleep apnea (adult) (pediat hossein)
ST AMANT,KAROL E P 05/05 [place] [facility] Outpatient Encounter [id number] ADITYA LAU MMED JAWED 05/06 [facility] COMPRE OPH EXAM EST PT 1/> [id number] [id number] Diagnos is: ICD-10- CM L71.8 Other rosacea
BARI GIBBONS CATRACHITA 05/06 [facility] FIT SPECTACLES MONOFOCAL [id number] Diagnos is: ICD-10- CM Z46.0 Encount er for fit/adj st of spectac les and contact lenses< br/> BARI GIBBONS CATRACHITA 05/07 [facility] PSYTX W PT 45 MINUTES [id number] [id number] Diagnos is: ICD-10- CM F43.10 Post-tr aumatic stress disorde r, unspeci fied
TORMEY,CAMERON OTHY 05/11 [facility] Outpatient Encounter [id number] Terri HERNANDEZ 05/12 [facility] POS AIRWAY PRESS CHINSTRAP [id number] [id number] Diagnos is: ICD-10- CM G47.39 Other sleep apnea<b r/> ST KAROL BERNABE E P 05/18 [facility] PSYTX W PT 45 MINUTES [id number] [id number] Diagnos is: ICD-10- CM F43.10 Post-tr aumatic stress disorde r, unspeci fied
TORMEY,CAMERON OTHY 05/18 [facility] OFFICE O/P EST MOD 30 MIN [id number] [id number] Diagnos is: ICD-10- CM B19.20 Unspeci fied viral hepatit is C without hepatic coma
FURCOLO,TI NA 05/20 [facility] Outpatient Encounter [id number] ADITYA LAU MMED JAWED 05/21 [facility] PSYTX W PT 45 MINUTES [id number] [id number] Diagnos is: ICD-10- CM F43.10 Post-tr aumatic stress disorde r, unspeci fied
TORMEY,CAMERON OTHY 05/25 [facility] PSYTX W PT 45 MINUTES [id number] [id number] Diagnos is: ICD-10- CM F43.10 Post-tr aumatic stress disorde r, unspeci fied
TORMEY,CAMERON OTHY 06/01 [facility] COLLJ & INTERPJ DATA EA 30 D [id number] [id number] Diagnos is: ICD-10- CM G47.39 Other sleep apnea<b r/> WILL GILL A 06/02 [facility] FEE [id number] Diagnos is: ICD-10- CM G47.33 Obstruc tive sleep apnea (adult) (pediat hossein)
CONRAD,ANNIE 06/08 [facility] OFFICE O/P EST MOD 30 MIN [id number] Diagnos is: ICD-10- CM G47.33 Obstruc tive sleep apnea (adult) (pediat hossein)
CONRAD,ANNIE 06/08 [place] [facility] Outpatient Encounter [id number] Wood CYR 06/15 [facility] PSYTX W PT 45 MINUTES [id number] Diagnos is: ICD-10- CM F43.10 Post-tr aumatic stress disorde r, unspeci fied
TORMEY,CAMERON OTHY 06/29 [facility] REPLACEMEN T NASAL CUSHION [id number] Diagnos is: ICD-10- CM G47.33 Obstruc tive sleep apnea (adult) (pediat hossein)
[facility] E P 06/30 [facility] En[facility] [id number] MARY VELAZQUEZ NA 07/06 [facility] En[facility] [id number] 07/06 [facility] PSYTX W PT 45 MINUTES [id number] [id number] Diagnos is: ICD-10- CM F43.10 Post-tr aumatic stress disorde r, unspeci fied
TORMEY,CAMERON OTHY 07/27 [facility] En[facility] [id number] 07/29 [facility] PSYTX W PT 45 MINUTES [id number] Diagnos is: ICD-10- CM F43.10 Post-tr aumatic stress disorde r, unspeci fied
TORMEY,CAMERON OTHY 08/03 [facility] En[facility] [id number] 08/10 [facility] PSYTX W PT 45 MINUTES [id number] Diagnos is: ICD-10- CM F43.10 Post-tr aumatic stress disorde r, unspeci fied
TORMEY,CAMERON OTHY 08/10 [facility] En[facility] [id number] Rogelio MCGRATH Sandra 08/16 [facility] HEARING AID REPAIR/MOD IFYING [id number] Diagnos is: ICD-10- CM Z46.1 Encount er for fitting and adjustm ent of hearing aid<br/ > SENIORPRIETO L 08/16 [facility] En[facility] [id number] 08/26 [facility] PSYTX W PT 45 MINUTES [id number] Diagnos is: ICD-10- CM F43.10 Post-tr aumatic stress disorde r, unspeci fied
TORMEY,CAMERON OTHY 08/31 [facility] PSYTX W PT 45 MINUTES [id number] Diagnos is: ICD-10- CM F43.10 Post-tr aumatic stress disorde r, unspeci fied
TORMEY,CAMERON OTHY 09/07 [facility] En[facility] [id number] 09/09 [facility] PSYTX W PT 45 MINUTES [id number] Diagnos is: ICD-10- CM F43.10 Post-tr aumatic stress disorde r, unspeci fied
TORMEY,CAMERON OTHY 09/14 [facility] Outpatient Encounter [id number] 09/17 [facility] PSYTX W PT 45 MINUTES [id number] Diagnos is: ICD-10- CM F43.10 Post-tr aumatic stress disorde r, unspeci fied
TORMECAMERON Kam OTHY 09/21 [facility] OFFICE O/P EST HI 40 MIN 33430-5.63 1. Diagnos is: ICD-10- CM Z77.29 Contact with and exposur e to other hazardo us substan yisel<br/ > FURCOLO,TI NA 09/23 [facility] ELECTROCAR DIOGRAM REPORT [id number] Diagnos is: ICD-10- CM Z13.6 Encount er for screeni ng for cardiov ascular disorde rs
VLADIMIR,DEACON PE A 09/23 [place] [facility] ELECTROCAR DIOGRAM TRACING [id number] 1. Diagnos is: ICD-10- CM R55 Syncope and collaps e
ANTON RUBIO ZKA 09/23 [facility] EXT ECG>7D<15D RECORDING [id number] 1. Diagnos is: ICD-10- CM R55 Syncope and collaps e
JAYNA KOHLER N 09/23 [facility] [facility] HEARING AID REPAIR/MOD IFYING [id number] Diagnos is: ICD-10- CM Z46.1 Encount er for fitting and adjustm ent of hearing aid<br/ > KONSTANTIN GUZMANE 09/23 [facility] Out[facility] Encounter [id number] 09/23 [facility] [place] 1 [id number] Diagnos is: ICD-10- CM H43.812 Vitreou s degener ation, left eye<br/ > HATFIELD,LACE Y J 09/24 [facility] PSYTX W PT 45 MINUTES [id number] 1. Diagnos is: ICD-10- CM F43.10 Post-tr aumatic stress disorde r, unspeci fied
TORMEY,CAMERON OTHY 09/28 [facility] Out[facility] Encounter [id number] 10/05 [facility] En[facility] [id number] 10/12 [facility] Encounter [id number] 10/12 [facility] PSYTX W PT 45 MINUTES [id number] Diagnos is: ICD-10- CM F43.10 Post-tr aumatic stress disorde r, unspeci fied
TORMEY,CAMERON OTHY 10/12 [facility] En[facility] [id number] 10/13 [facility] Encounter [id number] 10/13 [facility] Out[facility] Encounter [id number] Wood CYR E 10/18 [facility] PSYTX W PT 45 MINUTES [id number] Diagnos is: ICD-10- CM F43.10 Post-tr aumatic stress disorde r, unspeci fied
TORMEY,CAMERON OTHY 10/19 [facility] Outpatient Encounter [id number] Diagnos is: ICD-10- CM Z04.89 Encount er for examina tion and observa tion for oth reasons
KOKKIRALA, RAPHAEL 10/25 [facility] PSYTX W PT 60 MINUTES [id number] Diagnos is: ICD-10- CM F43.10 Post-tr aumatic stress disorde r, unspeci fied
TORMEY,CAMERON OTHY 10/26 [facility] PSYTX W PT 45 MINUTES [id number] Diagnos is: ICD-10- CM F43.10 Post-tr aumatic stress disorde r, unspeci fied
TORMEY,CAMERON OTHY 11/02 [facility] Out[facility] Encounter [id number] 11/04 [facility] HEARING AID REPAIR/MOD IFYING [id number] 1. Diagnos is: ICD-10- CM Z46.1 Encount er for fitting and adjustm ent of hearing aid<br/ > KONSTANTIN GUZMAN 11/04 [facility] Out[facility] Encounter [id number] 1. Rogelio MCGRATH VICTORIANO Flores 11/08 [facility] Out[facility] Encounter [id number] 1.11/08 [facility] [facility] COLLJ & INTERPJ DATA EA 30 D [id number] Diagnos is: ICD-10- CM G47.39 Other sleep apnea<b r/> WILL GILL 11/08 [place] [facility] PSYTX W PT 45 MINUTES [id number] 1. Diagnos is: ICD-10- CM F43.10 Post-tr aumatic stress disorde r, unspeci fied
TORMEY,CAMERON OTHY 11/09 [facility] PSYTX W PT 45 MINUTES [id number] Diagnos is: ICD-10- CM F43.10 Post-tr aumatic stress disorde r, unspeci fied
TORMEY,CAMERON OTHY 11/16 [facility] Out[facility] Encounter [id number] 1.11/18 [facility] POS AIRWAY PRESSURE CPAP [id number] 1. Diagnos is: ICD-10- CM G47.39 Other sleep apnea<b r/> KAROL SRIVASTAVA 11/18 [facility] PSYTX W PT 45 MINUTES [id number] 1. Diagnos is: ICD-10- CM F43.10 Post-tr aumatic stress disorde r, unspeci fied
TORMEY,CAMERON OTHY 11/30 [facility] FEE [id number] Diagnos is: ICD-10- CM G47.33 Obstruc tive sleep apnea (adult) (pediat hossein)
CONRADANNIE 12/07 [facility] OFFICE O/P EST MOD 30 MIN [id number] Diagnos is: ICD-10- CM G47.33 Obstruc tive sleep apnea (adult) (pediat hossein)
[facility] PSYTX W PT 45 MINUTES [id number] Diagnos is: ICD-10- CM F43.10 Post-tr aumatic stress disorde r, unspeci fied
TORMEY,CAMERON OTHY 12/07 [facility] Outpatient Encounter [id number] 1.12/13 [facility] LD POS AIRWAY PRESSURE CPAP [id number] 1BY. 51 Diagnos is: ICD-10- CM G47.39 Other sleep apnea<b r/> WILL GILL 12/13 [facility] [place] [facility] PATIENT EDUCATION MATERIALS [id number] Diagnos is: ICD-10- CM G47.39 Other sleep apnea<b r/> ST AMKAROL CM E P 12/14 [facility] PSYTX W PT 45 MINUTES [id number] Diagnos is: ICD-10- CM F43.10 Post-tr aumatic stress disorde r, unspeci fied
TORMEY,CAMERON OTHY 12/14 [facility] Out[facility] Encounter [id number] 1.12/21 [facility] PSYTX W PT 45 MINUTES [id number] 1. Diagnos is: ICD-10- CM F43.10 Post-tr aumatic stress disorde r, unspeci fied
TORMEY,CAMERON OTHY 12/28 [facility] Out[facility] Encounter [id number] 1.01/03 [facility] POS AIRWAY PRESSURE CPAP [id number] 1. Diagnos is: ICD-10- CM G47.39 Other sleep apnea<b r/> WILL GILL 01/03 [facility] PSYTX W PT 30 MINUTES [id number] 1. Diagnos is: ICD-10- CM F43.10 Post-tr aumatic stress disorde r, unspeci fied
TORMEY,CAMERON OTHY 01/04 [facility] Out[facility] Encounter [id number] 01/18 [facility] Out[facility] Encounter [id number] 01/19 [facility] PSYTX W PT 30 MINUTES [id number] Diagnos is: ICD-10- CM F43.10 Post-tr aumatic stress disorde r, unspeci fied
TORMEY,CAMERON OTHY 01/25 [facility] PSYTX W PT 45 MINUTES [id number] Diagnos is: ICD-10- CM F43.10 Post-tr aumatic stress disorde r, unspeci fied
TORMEY,CAMERON OTHY 02/08 [facility] Social History Combined list of available smoking, tobacco, and other social history from Department of Defense and Veterans Affairs facilities. Social History Type Response Date Comment Sourc e Tobacco smoking status INIS VA-TOBACCO NEVER USED 05/19/2023 [facility] History of tobacco use VA-TOBACCO NEVER USED 06/17/2022 [facility] History of tobacco use VA-TOBACCO NEVER USED 07/16/2021 [facility] History of tobacco use VA-TOBACCO NEVER USED 07/03/2020 [facility] History of tobacco use VA-TOBACCO NEVER USED 07/11/2019 [facility] History of tobacco use VA-TOBACCO NEVER USED 01/14/2019 [facility] History of tobacco use VA-TOBACCO NEVER USED 03/04/2018 [facility] History of tobacco use LIFETIME NON-TOBACCO USER 05/27/2017 [facility] History of tobacco use LIFETIME NON-TOBACCO USER 05/20/2016 [facility] History [facility] tobacco use LIFETIME NON-TOBACCO USER 05/03/2015 [facility] History of tobacco use LIFETIME NON-SMOKER 07/17/[address] [facility] Plan of Care List of future care activities from [facility] facilities. Additional future care activities may be listed in the Assessment and Plan section. Date/Time Care Activity Care Activity Detail Facili ty 02/16/2024 AMBULATORY - MEDICINE [facility] 02/19/2024 AMBULATORY - PSYCHIATRY AMBULAT[facility] 02/23/2024 AMBULATORY - PSYCHIATRY AMBULATORY - [facility] 03/01/2024 AMBULATORY - PSYCHIATRY AMBULAT[facility] 03/29/2024 [facility]BULAT[facility] - [facility] 01/20/2024 Consult Order COMMUNITY CARE-U ROLOGY Cons Hardener Hel[facility] 03/21/2024 Laboratory - Clerical Coordinator ry Order BASIC METABOLIC PANEL (fasting) BLOOD (SST-SERUM) [facility] 03/21/2024 Laboratory - Clerical Coordinator ry Order LIPID PANEL FASTING BLOOD (SST-SERUM) [facility] Advance Directives List of completed, amended, or rescinded Advance Directives on record at [facility] facilities. An actual copy of the Directive is not included. Date Advance Directive Provider Source 11/08/2019 ADVANCE DIRECTIVE MIGDALIA MILES [facility] 04/14/2019 ADVANCE DIRECTIVE RAFAL BULLARD [facility]
--- OUTSIDE RECORDS SUMMARY | 2024-02-16 09:05 | XMS_ITS ---
Author Name [facility] [place] [facility] [place] Address [address] [place] [address] Care Team Providers Care Loading Unit Operator Powder Charging Name Role Phone SUBHA VELAZQUEZ Primary Care Provider Unavailabl e Insurance Providers: All historical and current Section Date Range: From patient's date of to the date document was created. This section includes the names of all active insurance providers for the patient. Insurance Provider Type of Coverage Plan Name Start of Policy Coverage End of Policy Coverage Group Number Member ID Insurance Provider's Telephone Number Policy Bryson's Name Patient's Relationship to Policy Bryson GREGORY PUGA-WN R [place] GREGORY DIOP Sep 15, 2011 GREGORY PUGA [id number] PAULA GONZALES PATIENT [facility] [facility] SUPPLEMEN [employer] Aug 09, 2017 [id number] PAULA GONZALES PATIENT [facility] [place] MEDIC[facility] SUPPLEMEN [employer] SUPP PL Aug 09, 2017 [id number] PAULA GONZALES PATIENT MEDICARE (WNR) MEDICARE (M) PART A Nov 10, 2019 PART A [id number] [phone] [id number] PAULA GONZALES PATIENT MEDICARE (WNR) MEDICARE (M) PART B Apr 09, 2010 PART B [id number] PAULA GONZALES PATIENT MEDICARE (WNR) MEDICARE (M) PART B Apr 09, 2010 PART B [id number] PAULA GONZALES PATIENT MEDICARE (WNR) MEDICARE (M) PART B Apr 09, 2010 PART B [id number] [phone] PAULA GONZALES PATIENT MEDICARE (WNR) MEDICARE (M) PART A Nov 09, 2009 PART A [id number] PAULA GONZALES PATIENT MEDICARE (WNR) MEDICARE (M) PART A Nov 09, 2009 PART A [id number] [phone] PAULA GONZALES PATIENT Selected Encounter This section includes the information on record at [place] for the Encounter. Date/Time Encounter Type Encounter Description Reason Pro vider Source Feb 25, 2023 02:57 PM Outpatient Encounter PRIMARY CARE/MEDICINE IHE Encounter Template Text not used by [place] Plan of Treatment: Future Appointments (+ 6 months) and Future Tests (+/- 45 days) The Plan of Treatment section includes future care activities for the patient from all [place] [facility] [place]. This section includes future appointments and future orders which are active, pending or scheduled. Future Appointments This section includes appointments that were scheduled to occur 6 months from the date of the Encounter, up to a maximum of 20 appointments. The data comes from all [place] treatment facilities. Appointment Date/Time Appointment Type Appointme nt Facility Name Mar 03, 2023 01:00 PM AMBULATORY [place]ATRY [place] [facility] [place] [facility] Mar 04, 2023 09:00 AM AMBULATORY - MEDICINE [facility] [place] [facility] Mar 10, 2023 08:30 AM AMBULATORY - MEDICINE [place] [facility] [place] [facility] Mar 10, 2023 01:00 PM AMBULATORY - PS[place]CHIATRY [place] [facility] [place] [facility] Mar 24, 2023 01:00 PM AMBULATORY - PS[place]CHIATRY [place] [facility] [place] [facility] Apr 02, 2023 03:00 PM AMBULATORY - REHAB MEDICIN [place] [facility] [place] [facility] Apr 07, 2023 01:00 PM AMBULATORY - [place]IATRY [place] [facility] [place] [facility] Apr 17, 2023 11:00 AM [facility] Apr 21, 2023 09:30 AM [facility] [place] [facility] Apr 22, 2023 08:30 AM AMBULATORY - NONE [facility] [place] [facility] Apr 23, 2023 08:00 AM [facility] [place] [facility] May 06, 2023 12:30 PM AMBULATORY - NONE [facility] [place] [facility] May 07, 2023 03:30 PM [facility]UL[facility] [place] [facility] May 12, 2023 01:00 PM AMBULATORY [facility] PS[facility]IATRY [facility] [place] May 19, 2023 01:00 PM AMBUL[facility]RY [facility] [place] [facility] May 21, 2023 02:00 PM [facility] [place] [facility] May 26, 2023 01:00 PM AMBULATORY [facility]ATRY [facility] [place] [facility] Jun 02, 2023 01:00 PM AMBULATORY [facility]IATRY [facility] [place] [facility] Jun 05, 2023 09:00 AM AMBULATORY - NONE [facility] [place] [facility] Jun 09, 2023 09:30 AM AMBULATORY [facility] MEDICINE [facility] [place] [facility] Lab Results: +/- 30 days of the encounter This section includes the Chemistry and Hematology Lab Results on record with [facility] for the patient. Radiology Reports and Pathology Reports are provided separately, in subsequent sections. Lab Results This section contains the Chemistry/Hematology Results that were resulted 30 days before or 30 daysafter the date of the Encounter. Date/Time Source Result Type Result - Unit Interpretation Reference Range Comment Mar 04, 2023 08:57 AM [facility] [place] [facility] VITAMIN B-1 (THIAMINE)-(QU) Specimen Type: PLASMA Comment: Vitamin supplementation within 24 hours prior to blood draw may affect the accuracy of the results. This test was developed and its analytical performance characteristics have been determined by [facility] [place], [place]. It has not been cleared or approved by the U.S. Food and Drug Administration. This assay has been validated pursuant to the CLIA regulations and is used for clinical purposes. Test Performed by Donna Lookout, [facility], [address] [place], [place] Chris Alba M.D., Ph.D., Director of Laboratories , [facility] [id number] TEST PERFORMED AT: , Ordering Provider: MIYA LAU Report Released Date/Time: Feb 04, 2023 02:43 PM Reporting Lab: [facility] [address] [address] Performing Lab: [facility] [address] [address] VITAMIN B-1 (THIAMINE)-(Q U) 8 nmol/L 8-30 Mar 04, 2023 08:57 AM [facility] SYPHILIS ABS W/RFLX Specimen Type: SERUM Comment: No laboratory evidence of syphilis infection. If recent exposure is suspected, re-draw sample in 2-4 weeks and repeat algorithm. Testing performed by T. pallidum specific immunoassay. Ordering Provider: MIYA LAU Report Released Date/Time: Feb 04, 2023 02:43 PM Reporting Lab: [facility] [address] [address] Performing Lab: [facility] [address] [address] SYPHILIS ABS W/RFLX Non Reactive Non Reactive Mar 04, 2023 08:57 AM [facility] VITAMIN B12 Specimen Type: SERUM No comment entered. Ordering Provider: MIYA LAU Report Released Date/Time: Feb 04, 2023 02:43 PM Reporting Lab: [facility] [address] [address] Performing Lab: [facility] [address] [address] VITAMIN B12 366 pg/mL 200-900 Mar 04, 2023 08:57 AM [facility] LIPID PANEL FASTING Specimen Type: SERUM No comment entered. Ordering Provider: MIYA LAU Report Released Date/Time: Feb 04, 2023 02:43 PM Reporting Lab: [facility] [address] [address] Performing Lab: [address] [address] CHOLESTEROL 194 mg/dL TRIGLYCERIDE 126 mg/dL 0-150 LDL calculated 126 mg/dL 0-129 CHOL/HDL 4.5 HDL CHOLESTEROL 43 mg/dL 40-60 Mar 04, 2023 08:57 AM [facility] BASIC METABOLIC PANEL (fasting) Specimen Type: SERUM No comment entered. Ordering Provider: MIYA LAU Report Released Date/Time: Feb 04, 2023 02:43 PM Reporting Lab: [address] [address] Performing Lab: [address] [address] UREA NITROGEN 22 mg/dL 7-25 GLUCOSE 84 mg/dL 65-100 SODIUM 140 mmol/L 135-145 POTASSIUM 4.6 mmol/L 3.5-5.0 CHLORIDE 104 mmol/L 100-110 CO2 25 meq/L 20-30 CREATININE, Serum 1.01 mg/dL 0.50-1.40 eGFR(CKD-EPI 2020) 76 mL/min >60 Mar 04, 2023 08:57 AM [facility] VITAMIN D (25-OH) Specimen Type: SERUM No comment entered. Ordering Provider: MIYA LAU Report Released Date/Time: Feb 04, 2023 02:43 PM Reporting Lab: [address] [address] Performing Lab: [address] [address] VITAMIN D (25-OH) 42 ng/mL 20-50 Mar 04, 2023 08:57 AM [facility] MAGNESIUM Specimen Type: SERUM No comment entered. Ordering Provider: MIYA LAU Report Released Date/Time: Feb 04, 2023 02:43 PM Reporting Lab: [address] [address] Performing Lab: [facility] [address] [address] MAGNESIUM 2.1 mg/dL 1.6-2.6 Mar 04, 2023 08:57 AM [facility] CALCIUM Specimen Type: SERUM No comment entered. Ordering Provider: MIYA LAU Report Released Date/Time: Feb 04, 2023 02:43 PM Reporting Lab: [facility] [address] [address] Performing Lab: [facility] [address] [address] CALCIUM 9.0 mg/dL 8.5-10.2 Mar 04, 2023 08:57 AM [facility] LIVER FUNCTION Specimen Type: SERUM No comment entered. Ordering Provider: MIYA LAU Report Released Date/Time: Feb 04, 2023 02:43 PM Reporting Lab: [facility] [address] [address] Performing Lab: [facility] [address] PROTEIN,TOTAL 7.3 g/dL 6.0-8.3 ALBUMIN 4.0 g/dL 3.5-5.0 ALKALINE PHOSPHATASE 109 U/L 40-150 AST 19 U/L 5-34 ALT 27 U/L BILIRUBIN, TOTAL 1.0 mg/dL 0.2-1.2 Mar 04, 2023 08:57 AM [facility] TSH Specimen Type: SERUM No comment entered. Ordering Provider: MIYA LAU Report Released Date/Time: Feb 04, 2023 02:43 PM Reporting Lab: [facility] [address] [address] Performing Lab: [facility] [address] TSH 1.13 u[IU]/mL 0.35-5.00 Mar 04, 2023 08:57 AM [facility] CBC AND DIFF (AUTO) Specimen Type: BLOOD No comment entered. Ordering Provider: MIYA LAU Report Released Date/Time: Feb 04, 2023 02:43 PM Reporting Lab: [facility] [address] [address] Performing Lab: [facility] [address] [address] WBC 5.82 10*3/uL 4.50-11.00 RBC 5.29 10*6/uL 4.23-5.66 HGB 16.4 g/dL 12.8-17 HCT 49.9 39.2-50.4 MCV 94.3 fL 82-99 MCHC 32.9 g/dL 30.8-35.1 PLT 248 10*3/uL 140-360 RDW-CV 13.6 12.0-16.0 Jenkins, Abs 1.09 10*3/uL 0.30-1.10 MCH 31.0 pg 26.2-32.6 Neut % 57.3 43.7-75.8 Lymph % 19.9 14.0-42.3 Jenkins % 18.7 H 5.1-13.7 Eos % 3.3 0.4-6.8 Baso % 0.5 0.1-2.0 Neut, Abs 3.33 10*3/uL 2.20-7.60 Lymph, Abs 1.16 10*3/uL 1.00-3.20 Eos, Abs 0.19 10*3/uL 0.03-0.44 Baso, Abs 0.03 10*3/uL 0.01-0.13 Immature Gran % 0.3 0.0-0.7 Immature Gran, Abs 0.02 10*3/uL 0.00-0.06 Social History: Smoking Status (Most current) and Tobacco Use (All prior to encounter date) This section includes the most current, and the historical, smoking and tobacco- related health factors from the [place] facility where the Encounter took place. Current Smoking Status This section includes the most current smoking, or tobacco-related health factor, from the [place] facility where the Encounter took place. Date/Time Current Smoking Status Comment Facil ity June 17, 2022 01:00 PM VA-TOBACCO NEVER USED [facility] Tobacco Use History This section includes a history of the smoking, or tobacco-related health factors, that were collected on or before the date of the Encounter. The data comes from the [place] facility where the Encounter took place. Date/Time Smoking Status/Tobacco Use Comment F acility Jul 16, 2021 01:00 PM VA-TOBACCO NEVER USED [place] [facility] [place] [facility] July 03, 2020 01:00 PM VA-TOBACCO NEVER USED [place] [facility] [facility] Jul 11, 2019 02:57 PM VA-TOBACCO NEVER USED [place] [facility] [place] [facility] Jan 14, 2019 08:50 AM VA-TOBACCO NEVER USED [place] [facility] [place] [facility] Mar 04, 2018 01:20 PM VA-TOBACCO NEVER USED [place] [facility] [place] [facility] May 27, 2017 11:01 AM LIFETIME NON-TOBACCO USER [place] [facility] [place] [facility] May 20, 2016 10:51 AM LIFETIME NON-TOBACCO USER [place] [facility] [place] [facility] May 03, 2015 01:13 PM LIFETIME NON-TOBACCO USER [place] [facility] Advance Directives: All historical and current Section Date Range: From patient's date of to the date document was created. This section includes ALL of a patient's completed or amended [place] Advance and Rescinded Directives. The entries below indicate that a directive exists for the patient, but an actual copy is not included with this document. The data comes from all [place] facilities. Date Advance Directives Provider Source Nov 08, 2019 ADVANCE DIRECTIVE MIGDALIA MILES [place] [facility] [facility] Apr 14, 2019 ADVANCE DIRECTIVE RAFAL BULLARD [place] [facility] Encounter Notes: All associated encounter notes This section contains the clinical notes associated to the Encounter. Date/Time Encounter Note(s) Provider Source Feb 25, 2023 02:57 PM ADMINISTRATIVE NOT E: LOCAL TITLE: ADMINISTRATIVE NOTE STANDARD TITLE: ADMINISTRATIVE NOTE DATE OF NOTE: FEB 25, 2023@14:57 ENTRY DATE: FEB 25, 2023@14:57:35 AUTHOR: LAURA BRUCE EXP COSIGNER: URGENCY: STATUS: COMPLETED Reminder call for your upcoming Primary Care Appointment and the need for preparations prior to your upcoming appt. [X] Location in [facility] [address] [facility] [X] Fasting labs [ ] Lab work within 30 days [ ] Urine [ ] No Preparation Action taken: [X] Called , left voice message Feb [ ] Called , unable to leave voice mail [ ] Spoke to /managed care coordinator to remind them of upcoming appt/preparations Upcoming Appointments: 03/03/2023 13:00 CWM/NO/VVC/MHC/TORMEY 03/04/2023 09:00 CWM/NO/PHARM/PACT 3 03/10/2023 08:30 CWM/NO/PACT 1 03/10/2023 13:00 CWM/NO/VVC/MHC/TORMEY 03/17/2023 13:00 CWM/NO/VVC/MHC/TORMEY 03/24/2023 13:00 CWM/NO/VVC/MHC/TORMEY 05/07/2023 15:30 NHM/OPTOMETRY/SHAI /rosio/ LAURA BRUCE ADVANCED SUPERVISOR FISHING Signed: 02/25/2023 14:57 LAURA BRUCE [place] [facility] [place] [facility]
--- OUTSIDE RECORDS SUMMARY | 2024-02-16 09:06 | XMS_ITS | Encounter Summary ---
Author Name [facility] [place] [place] [facility] [place] Address [address] [place] [address] Care Team Providers Care Safety Deposit Clerk Name Role Phone SUBHA VELAZQUEZ Primary Care [...] Relationship to Policy Bryson GREGORY PUGA-WN R [place] SPECIAL CLASS GREGORY DIOP Sep 15, 2011 GREGORY PUGA [id number] PAULA FENG [facility]IC[facility] SUPPLEMEN [facility] Aug 09, 2017 [id number] PAULA FENG [facility] MEDIC[facility] SUPPLEMEN MARIA ELENA [facility] SUPP PL Aug 09, 2017 [id number] PAULA FENG PATIENT MEDICARE (WNR) MEDICARE (M) PART A Nov 10, 2019 PART A [id number] PAULA FENG PATIENT MEDICARE (WNR) MEDICARE (M) PART B Apr 09, 2010 PART B [id number] PAULA FENG PATIENT MEDICARE (WNR) MEDICARE (M) PART B Apr 09, 2010 PART B [id number] PAULA FENG PATIENT MEDICARE (WNR) MEDICARE (M) PART B Apr 09, 2010 PART B [id number] PAULA FENG PATIENT MEDICARE (WNR) MEDICARE (M) PART A Nov 09, 2009 PART A [id number] PAULA FENG PATIENT MEDICARE (WNR) MEDICARE (M) PART A Nov 09, 2009 PART A [id number] PAULA FENG PATIENT Selected Encounter This section includes the information on record at [place] for the Encounter. Date/Time Encounter Type Encounter Description Reason Provider Source Mar 03, 2023 01:00 PM PSYTX W PT 45 [facility] - IND ICD-10-CM F43.10 Post-traumatic stress disorder, unspecified NATHAN KIRK Mikhail Encounter Template Text not used by [place] Assessments - Encounter Diagnoses This section includes the primary and secondary diagnoses documented for the Encounter. Date/Time Primary/Secondary Diagnosis Diagnosis Name Provider Source Mar 04, 2023 10:51 AM PRIMARY Post-traumatic stress disorder, unspecified NATHAN KIRK [facility] Plan of Treatment: Future Appointments (+ 6 months) and Future Tests (+/- 45 days) The Plan of Treatment section includes future care activities for the patient from all [place] treatmentfacilities. This section includes future appointments and future orders which are active, pending or scheduled. Future Appointments This section includes appointments that were scheduled to occur 6 months from the date of the Encounter, up to a maximum of 20 appointments. The data comes from all [place] treatment facilities. Appointment Date/Time Appointment Type Appointme nt Facility Name Mar 04, 2023 09:00 AM [facility] [place] [facility] Mar 10, 2023 08:30 AM AMBULATORY - MEDICINE [facility] [place] [place] [facility] [place] Mar 10, 2023 01:00 PM [facility] [place] [facility] [place] Mar 24, 2023 01:00 PM [facility] [place] [facility] Apr 02, 2023 03:00 PM [facility] [place] [facility] Apr 07, 2023 01:00 PM [facility]UL[facility] [place] [facility] Apr 17, 2023 11:00 AM AMBULATORY - [...] - MEDICINE [facility] [place] [facility] [place] Jun 09, 2023 09:31 AM AMBULATORY - MEDICINE [place] [place] [facility] [place] Lab Results: +/- 30 days of the encounter This section includes the Chemistry and Hematology Lab Results on record with [place] for the patient. Radiology Reports and Pathology Reports are provided separately, in subsequent sections. Lab Results This section contains the Chemistry/Hematology Results that were resulted 30 days before or 30 daysafter the date of the Encounter. Date/Time Source Result Type Result - Unit Interpretation Reference Range Comment Mar 04, 2023 08:57 AM [facility] [place] [facility] VITAMIN B-1 (THIAMINE)-(QU) Specimen Type: PLASMA Comment: Vitamin supplementation within 24 hours prior to blood draw may affect the accuracy of the results. This test was developed and its analytical performance characteristics have been determined by [facility] [place], [place]. It has not been cleared or approved by the U.S. Food and Drug Administration. This assay has been validated pursuant to the CLIA regulations and is used for clinical purposes. Test Performed by [facility], [facility], [address] [place], [place] Chris Alba M.D., Ph.D., Director of Laboratories , CLIA [id number] TEST PERFORMED AT: , Ordering Provider: MIYA LAU Report Released Date/Time: Feb 04, 2023 02:43 PM Reporting Lab: [address] [address] Performing Lab: [facility] [address] [address] VITAMIN B-1 (THIAMINE)-(Q U) 8 nmol/L 8-Mar 04, 2023 08:57 AM [facility] SYPHILIS ABS W/RFLX Specimen Type: SERUM Comment: No laboratory evidence of syphilis infection. If recent exposure is suspected, re-draw sample in 2-4 weeks and repeat algorithm. Testing performed by T. pallidum specific immunoassay. Ordering Provider: MIYA LAU Report Released Date/Time: Feb 04, 2023 02:43 PM Reporting Lab: [facility] [address] [facility] [address] Performing Lab: [facility] [address] [facility] [address] SYPHILIS ABS W/RFLX Non Reactive Non Reactive Mar 04, 2023 08:57 AM [facility] VITAMIN B12 Specimen Type: SERUM No comment entered. Ordering Provider: MIYA LAU Report Released Date/Time: Feb 04, 2023 02:43 PM Reporting Lab: [facility] [address] [facility] [address] Performing Lab: [facility] [address] [facility] [address] VITAMIN B12 366 pg/mL 200-900 Mar 04, 2023 08:57 AM [facility] LIPID PANEL FASTING Specimen Type: SERUM No comment entered. Ordering Provider: MIYA LAU Report Released Date/Time: Feb 04, 2023 02:43 PM Reporting Lab: [facility] [address] [facility] [address] Performing Lab: [facility] [address] [facility] [address] CHOLESTEROL 194 mg/dL TRIGLYCERIDE 126 mg/dL 0-150 LDL calculated 126 mg/dL 0-129 CHOL/HDL 4.5 HDL CHOLESTEROL 43 mg/dL 40-60 Mar 04, 2023 08:57 AM [facility] BASIC METABOLIC PANEL (fasting) Specimen Type: SERUM No comment entered. Ordering Provider: MIYA LAU Report Released Date/Time: Feb 04, 2023 02:43 PM Reporting Lab: [facility] [address] [facility] [address] Performing Lab: [facility] [address] [facility] [address] UREA NITROGEN 22 mg/dL 7-25 GLUCOSE 84 mg/dL 65-100 SODIUM 140 mmol/L 135-145 POTASSIUM 4.6 mmol/L 3.5-5.0 CHLORIDE 104 mmol/L 100-110 CO2 25 meq/L 20-30 CREATININE, Serum 1.01 mg/dL 0.50-1.40 eGFR(CKD-EPI 2020) 76 mL/min >60 Mar 04, 2023 08:57 AM [facility] VITAMIN D (25-OH) Specimen Type: SERUM No comment entered. Ordering Provider: MIYA LAU Report Released Date/Time: Feb 04, 2023 02:43 PM Reporting Lab: [facility] [address] [facility] [address] Performing Lab: [address] [address] VITAMIN D (25-OH) 42 ng/mL 20-50 Mar 04, 2023 08:57 AM [facility] MAGNESIUM Specimen Type: SERUM No comment entered. Ordering Provider: MIYA LAU Report Released Date/Time: Feb 04, 2023 02:43 PM Reporting Lab: [facility] [address] [facility] [address] Performing Lab: [facility] [address] MAGNESIUM 2.1 mg/dL 1.6-2.6 Mar 04, 2023 08:57 AM [facility] CALCIUM Specimen Type: SERUM No comment entered. Ordering Provider: MIYA LAU Report Released Date/Time: Feb 04, 2023 02:43 PM Reporting Lab: [facility] [address] Performing Lab: [facility] [address] CALCIUM 9.0 mg/dL 8.5-10.2 Mar 04, 2023 08:57 AM [facility] LIVER FUNCTION Specimen Type: SERUM No comment entered. Ordering Provider: MIYA LAU Report Released Date/Time: Feb 04, 2023 02:43 PM Reporting Lab: [facility] [address] Performing Lab: [facility] [address] PROTEIN,TOTAL 7.3 g/dL 6.0-8.3 ALBUMIN 4.0 g/dL 3.5-5.0 ALKALINE PHOSPHATASE 109 U/L 40-150 AST 19 U/L 5-34 ALT 27 U/L BILIRUBIN, TOTAL 1.0 mg/dL 0.2-1.2 Mar 04, 2023 08:57 AM [facility] TSH Specimen Type: SERUM No comment entered. Ordering Provider: MIYA LAU Report Released Date/Time: Feb 04, 2023 02:43 PM Reporting Lab: [facility] [place] [facility] [address] [facility] [address] Performing Lab: [place] [facility] [place] [address] [facility] [address] TSH 1.13 u[IU]/mL 0.35-5.00 Mar 04, 2023 08:57 AM [facility] [place] CBC AND DIFF (AUTO) Specimen Type: BLOOD No comment entered. Ordering Provider: MIYA LAU Report Released Date/Time: Feb 04, 2023 02:43 PM Reporting Lab: [facility] [place] [address] [facility] [address] Performing Lab: [facility] [place] [address] [facility] [address] WBC 5.82 10*3/uL 4.50-11.00 RBC 5.29 10*6/uL 4.23-5.66 HGB 16.4 g/dL 12.8-17 HCT 49.9 39.2-50.4 MCV 94.3 fL 82-99 MCHC 32.9 g/dL 30.8-35.1 PLT 248 10*3/uL 140-360 RDW-CV 13.6 12.0-16.0 [place], Abs 1.09 10*3/uL 0.30-1.10 MCH 31.0 pg 26.2-32.6 Neut % 57.3 43.7-75.8 Lymph % 19.9 14.0-42.3 [place] % 18.7 H 5.1-13.7 Eos % 3.3 [...] and tobacco- related health factors from the [place] facility where the Encounter took place. Current Smoking Status This section includes the most current smoking, or tobacco-related health factor, from the [place] facility where the Encounter took place. Date/Time Current Smoking Status Comment Louisa koenig June 17, 2022 01:00 PM VA-TOBACCO NEVER USED [place] [facility] Tobacco Use History This section includes a history of the smoking, or tobacco-related health factors, that were collected on or before the date of the Encounter. The data comes from the [place] facility where the Encounter took place. Date/Time Smoking Status/Tobacco Use Comment F acility Jul 16, 2021 01:00 PM VA-TOBACCO NEVER USED [place] [facility] [place] [facility] [place] July 03, 2020 01:00 PM VA-TOBACCO NEVER USED [place] [facility] [place] [facility] [place] Jul 11, 2019 02:57 PM VA-TOBACCO NEVER USED [place] [facility] [place] [facility] [place] Jan 14, 2019 08:50 AM VA-TOBACCO NEVER USED [place] [facility] [place] [facility] [place] Mar 04, 2018 01:20 PM VA-TOBACCO NEVER USED [facility] [place] [facility] [place] May 27, 2017 11:01 AM LIFETIME NON-TOBACCO USER [facility] [place] [facility] [place] May 20, 2016 10:51 AM LIFETIME NON-TOBACCO USER [place] [facility] [facility] [place] May 03, 2015 01:13 PM LIFETIME NON-TOBACCO USER [place] [facility] [facility] [place] Advance Directives: All historical and current Section Date Range: From patient's date of to the date document was created. This section includes ALL of a patient's completed or amended [place] Advance and Rescinded Directives. The entries below indicate that a directive exists for the patient, but an actual copy is not included with this document. The data comes from all [place] facilities. Date Advance Directives Provider Source Nov 08, 2019 ADVANCE DIRECTIVE MIGDALIA MILES [place] [facility] [place] [facility] Apr 14, 2019 ADVANCE DIRECTIVE RAFAL BLULARD [place] C [place] [facility] [place] Encounter Notes: All associated encounter notes This section contains the clinical notes associated to the Encounter. Date/Time Encounter Note(s) Provider Source Mar 03, 2023 01:28 PM TELEHEALTH NOTE: LOCAL TITLE: [facility] VIDEO CONNECT PSYCHOLOGY NOTE STANDARD TITLE: TELEHEALTH NOTE DATE OF NOTE: MAR 03, 2023@13:28 ENTRY DATE: MAR 03, 2023@13:29:12 AUTHOR: NATHAN KIRK COSIGNER: URGENCY: STATUS: COMPLETED [facility] Video Connect (VVC) Standard Documentation VVC Clinician Resources Only: E911 (Emergency Call Relay Center): [phone] National Veterans Crisis Line - 988 then press #1. [place] Suicide Coordinator [phone], Ext. [phone]; Back-up Ext. [phone] [place] Police, [place], [place] [phone] Introduction: Visit is being conducted by [employer]. [place] identified with 2 identifiers: [X] Full Name [X] Date of [ ] [place] ID Card Emergency Plan: [place] confirmed and/or provided the following information in case of emergency or technology failure. PATIENT PHONE - PHONE NUMBER [CELLULAR] - Is patient phone number correct, if not, enter below: 's phone number: PRASANTH FENG [address], [place], [address] 's present location and address for appointment: [address] [place] [address]. [place] [address] 's emergency contact name and phone number: Layla Feng [place] reported that location is private and safe: Yes Informed Consent: informed of the risks and benefits of Telehealth video care. [place] has the right to refuse video services. If refuses video visit, a [id number] visit will be scheduled. verbalized consent for this video visit: Yes [place] provided consent for any other persons present for visit: N/A If yes, who and relationship to patient: Secure visit: Visit was locked for security and privacy: Yes -- INFORMED CONSENT: Previously reviewed rights and limits of confidentiality, mandatory reporting situations, duty to warn and protect, Daniels Warning, (if treatment team finds patient to be an acute danger to themself or others, that this information could be relayed to a court of law and presented to a livestock speculator), and DOD access for active-duty service members. Provided Suicide Prevention Hotline number, and other contact numbers as necessary. VISIT DURATION: 40 Minutes *Session ended a few minutes early as had a bad cold and expressed not feeling well. He shared that he planned to get some rest. DIAGNOSES: PTSD VETERANS STATEMENT OF GOALS/CONCERNS: Reduce irritability, avoidance, work on current challenges (including medical issues), relationship issues, increase meaningful activities, and remain connected with people he is close to. SESSION FOCUS: Session focused 's thoughts and concerns regarding current medical issues. He expressed feeling some anxiety and frustration regarding challenges in the process of evaluating and diagnosing some of his medical issues. He shared that his last MRI (November 2022) reportedly indicated increased white matter on his brain and he is concerned as to what this means for him. [place]'s PCP is currently assisting in coordinating an appointment with the Neurologist at [facility] to explain the results of the MRI, and any recommended treatment or follow-up care around this. The remainder of the session focused on coping skills, including self-care, focusing on the things he can control, spending time with the people who are a positive support in his life, and engaging in the things that are meaningful to him. Also shared with [place] that he is welcome to contact this provider should he need additional support during this difficult time. expressed appreciation and that he would so if needed. INTERVENTIONS: Psychotherapeutic Interventions: Increase meaningful activities, focus on the things he can control, effective communication, remain connected with friends and family, relaxation techniques, and mindfulness. ASSESSMENT: BRIEF ASSESSMENT OF MENTAL STATUS: 1. Appearance (grooming, attire, apparent age) within normal limits: Yes 2. Thought content was organized and goal directed: Yes 3. Speech was coherent and unimpaired: Yes 4. Affect was appropriate and unremarkable: Yes 5. Demeanor was calm, with no signs of agitation or restlessness: Yes 6. Sleep was largely unimpaired and restful: Yes 7. No evidence of psychosis (hallucinations or delusions): Yes 8. Mood was normal: Yes RISK ASSESSMENT: No suicidal/homicidal ideation reported PLAN FOR FOLLOW-UP: Next session planned for: 03/10/22 at 1:00pm /rosio/ NATHAN KIRK, Ph.D Clinical Psychologist Signed: 03/04/2023 10:51 NATHAN KIRK CN[facility]L [facility]
--- OUTSIDE RECORDS SUMMARY | 2024-02-16 09:06 | XMS_ITS | Encounter Summary ---
Author Name [facility] Organization [facility] Address [address] [place] [address] Care Team Providers Care Decker Operator Name Role Phone SUBHA VELAZQUEZ Primary Care [...] Relationship to Policy Bryson GREGORY PUGA-WN R [place] SPECIAL CLASS GREGORY DIOP Sep 15, 2011 GREGORY PUGA [phone] PAULA GONZALES PATIENT [facility] [employer] [facility] [employer] [employer] [facility] Aug 09, 2017 [id number] PAULA GONZALES PATIENT [facility] SUPP PL Aug 09, 2017 [id number] PAULA GONZALES PATIENT MEDICARE (WNR) MEDICARE (M) PART A Nov 10, 2019 PART A [id number] PAULA GONZALES PATIENT MEDICARE (WNR) MEDICARE (M) PART B Apr 09, 2010 PART B [id number] PAULA GONZALES PATIENT MEDICARE (WNR) MEDICARE (M) PART B Apr 09, 2010 PART B [id number] PAULA GONZALES PATIENT MEDICARE (WNR) MEDICARE (M) PART B Apr 09, 2010 PART B [id number] PAULA GONZALES PATIENT MEDICARE (WNR) MEDICARE (M) PART A Nov 09, 2009 PART A [id number] PAULA GONZALES PATIENT MEDICARE (WNR) MEDICARE (M) PART A Nov 09, 2009 PART A [id number] [phone] PAULA GONZALES PATIENT Selected Encounter This section includes the information on record at [place] for the Encounter. Date/Time Encounter Type Encounter Description Reason Provider Source Mar 10, 2023 08:30 AM OFFICE O/P EST MOD 30 MIN PRIMARY CARE/MEDICINE ICD-10-CM F43.10 Post-traumatic stress disorder, unspecified AHMED,MOHAMMED JAWED E Encounter Template Text not used by MS Assessments - Encounter Diagnoses This section includes the primary and secondary diagnoses documented for the Encounter. Date/Time Primary/Secondary Diagnosis Diagnosis Name Provider Source Mar 10, 2023 09:07 AM PRIMARY Post-traumatic stress disorder, unspecified AHMED,MOHAMMED JAWED [facility] [place] [facility] Mar 10, 2023 09:07 AM SECONDARY Carcinoma in situ of bladder AHMED,MOHAMMED JAWED [facility] [place] [facility] Mar 10, 2023 09:07 AM SECONDARY Chronic obstructive pulmonary disease, unspecified AHMED,MOHAMMED JAWED [facility] [place] [facility] Mar 10, 2023 09:07 AM SECONDARY Hyperlipidemia, unspecified AHMED,MOHAMMED JAWED [facility] [place] [facility] Mar 10, 2023 09:07 AM SECONDARY Other sleep apnea AHMED,MOHAMMED JAWED [facility] [place] [facility] Plan of Treatment: Future Appointments (+ 6 months) and Future Tests (+/- 45 days) The Plan of Treatment section includes future care activities for the patient from all [place] treatmentfacilities. This section includes future appointments and future orders which are active, pending or scheduled. Future Appointments This section includes appointments that were scheduled to occur 6 months from the date of the Encounter, up to a maximum of 20 appointments. The data comes from all [place] treatment facilities. Appointment Date/Time Appointment Type Appointme nt Facility Name Mar 24, 2023 01:00 PM AMBULATORY - PSYCHIATRY [facility] [place] [facility] Apr 02, 2023 03:00 PM AMBULATORY - REHAB MEDICIN E [facility] [place] [facility] Apr 07, 2023 01:00 PM AMBULATORY - PSYCHIATRY [facility] [place] [facility] Apr 17, 2023 11:00 AM AM[place]ULATORY - [place]ICINE [place] [facility] Apr 21, 2023 09:30 AM AMBULATORY - MEDICINE [facility] [place] [facility] Apr 22, 2023 08:30 AM AMBULATORY - NONE [facility] [place] [facility] Apr 23, 2023 08:00 AM AMBULATORY - MEDICINE [facility] [place] [facility] May 06, 2023 12:30 PM AMBULATORY - NONE [facility] [place] [facility] May 07, 2023 03:30 PM AMBULATORY - MEDICINE [facility] [place] [facility] May 12, 2023 01:00 PM AMBULATORY - PSYCHIATRY [facility] [place] [facility] May 19, 2023 01:00 PM AMBULATORY - PSYCHIATRY [facility] [place] [facility] May 21, 2023 02:00 PM AMBULATORY - MEDICINE [facility] [place] [facility] May 26, 2023 01:00 PM AMBULATORY - PSYCHIATRY [facility] [place] [facility] Jun 02, 2023 01:00 PM AMBULATORY - PSYCHIATRY [facility] [place] [facility] Jun 05, 2023 09:00 AM AMBULATORY - NONE [facility] [place] [facility] Jun 09, 2023 09:30 AM AMBULATORY - MEDICINE [facility] [place] [place] [facility] Jun 09, 2023 09:31 AM AMBULATORY - [place]ICINE [place] [facility] June 30, 2023 01:00 PM AMBULATORY - PSYCHIATRY [facility] [place] [facility] Jul 28, 2023 01:00 PM AMBULATORY - PSYCHIATRY [facility] [place] [facility] Aug 04, 2023 01:00 PM AMBULATORY - PSYCHIATRY [facility] Lab Results: +/- 30 days of the encounter This section includes the Chemistry and Hematology Lab Results on record with MS for the patient. Radiology Reports and Pathology Reports are provided separately, in subsequent sections. Lab Results This section contains the Chemistry/Hematology Results that were resulted 30 days before or 30 daysafter the date of the Encounter. Date/Time Source Result Type Result - Unit Interpretation Reference Range Comment Mar 04, 2023 08:57 AM [facility] VITAMIN B-1 (THIAMINE)-(QU) Specimen Type: PLASMA Comment: Vitamin supplementation within 24 hours prior to blood draw may affect the accuracy of the results. This test was developed and its analytical performance characteristics have been determined by [employer] [place], [place]. It has not been cleared or approved by the U.S. Food and Drug Administration. This assay has been validated pursuant to the CLIA regulations and is used for clinical purposes. Test Performed by [facility], [facility], [address] [place] [address] Chris Alba M.D., Ph.D., Director of Laboratories , CLIA [id number] TEST PERFORMED AT: , Ordering Provider: MIYA LAU Report Released Date/Time: Feb 04, 2023 02:43 PM Reporting Lab: [address] [address] Performing Lab: [facility] [address] [address] VITAMIN B-1 (THIAMINE)-(Q U) 8 nmol/L 8-Mar 04, 2023 08:57 AM [facility] SYPHILIS ABS W/RFLX Specimen Type: SERUM Comment: No laboratory evidence of syphilis infection. If recent exposure is suspected, re-draw sample in 2-4 weeks and repeat algorithm. Testing performed by T. pallidum specific immunoassay. Ordering Provider: MIYA LAU Report Released Date/Time: Feb 04, 2023 02:43 PM Reporting Lab: [facility] [address] [facility] [address] Performing Lab: [facility] [address] [facility] [address] SYPHILIS ABS W/RFLX Non Reactive Non Reactive Mar 04, 2023 08:57 AM [facility] LIVER FUNCTION Specimen Type: SERUM No comment entered. Ordering Provider: MIYA LAU Report Released Date/Time: Feb 04, 2023 02:43 PM Reporting Lab: [facility] [address] [facility] [address] Performing Lab: [address] [address] PROTEIN,TOTAL 7.3 g/dL 6.0-8.3 ALBUMIN 4.0 g/dL 3.5-5.0 ALKALINE PHOSPHATASE 109 U/L 40-150 AST 19 U/L 5-34 ALT 27 U/L BILIRUBIN, TOTAL 1.0 mg/dL 0.2-1.2 Mar 04, 2023 08:57 AM [facility] BASIC METABOLIC PANEL (fasting) Specimen Type: SERUM No comment entered. Ordering Provider: MIYA LAU Report Released Date/Time: Feb 04, 2023 02:43 PM Reporting Lab: [address] [address] Performing Lab: [address] [address] UREA NITROGEN 22 mg/dL 7-25 GLUCOSE 84 mg/dL 65-100 SODIUM 140 mmol/L 135-145 POTASSIUM 4.6 mmol/L 3.5-5.0 CHLORIDE 104 mmol/L 100-110 CO2 25 meq/L 20-30 CREATININE, Serum 1.01 mg/dL 0.50-1.40 eGFR(CKD-EPI 2020) 76 mL/min >60 Mar 04, 2023 08:57 AM [facility] VITAMIN B12 Specimen Type: SERUM No comment entered. Ordering Provider: MIYA LAU Report Released Date/Time: Feb 04, 2023 02:43 PM Reporting Lab: [address] [place] [address] Performing Lab: [facility] [place] [facility] [address] [facility] [address] VITAMIN B12 366 pg/mL 200-900 Mar 04, 2023 08:57 AM [facility] LIPID PANEL FASTING Specimen Type: SERUM No comment entered. Ordering Provider: MIYA LAU Report Released Date/Time: Feb 04, 2023 02:43 PM Reporting Lab: [facility] [place] [place] [facility] [address] [facility] [address] Performing Lab: [facility]ITALN [facility] [address] [facility] [address] CHOLESTEROL 194 mg/dL TRIGLYCERIDE 126 mg/dL 0-150 LDL calculated 126 mg/dL 0-129 CHOL/HDL 4.5 HDL CHOLESTEROL 43 mg/dL 40-60 Mar 04, 2023 08:57 AM [facility] VITAMIN D (25-[place]) Specimen Type: SERUM No comment entered. Ordering Provider: MIYA LAU Report Released Date/Time: Feb 04, 2023 02:43 PM Reporting Lab: [facility]ITALTR[facility] [place] [facility] [address] [facility] [address] Performing Lab: [facility] SYSTEMRLAM[facility] HOSPITALTRN [facility]ETS [address] [address] VITAMIN D (25-OH) 42 ng/mL 20-50 Mar 04, 2023 08:57 AM [facility]PITALUSENY[facility] MAGNESIUM Specimen Type: SERUM No comment entered. Ordering Provider: MIYA LAU Report Released Date/Time: Feb 04, 2023 02:43 PM Reporting Lab: [facility] [place] [place] [facility] [address] [facility] [address] Performing Lab: [facility] SYSTEMRLAM[facility] HOSPITALTRN [facility]ITALCH[facility] [address] [address] MAGNESIUM 2.1 mg/dL 1.6-2.6 Mar 04, 2023 08:57 AM [facility] TSH Specimen Type: SERUM No comment entered. Ordering Provider: MIYA LAU Report Released Date/Time: Feb 04, 2023 02:43 PM Reporting Lab: [facility]RLAM[facility]OSPITALTRN [facility]ITAL[facility] [address] [facility] [address] Performing Lab: [facility]R WSTRN [facility]ITALUSETS [address] [address] TSH 1.13 u[IU]/mL 0.35-5.00 Mar 04, 2023 08:57 AM [facility] CALCIUM Specimen Type: SERUM No comment entered. Ordering Provider: MIYA LAU Report Released Date/Time: Feb 04, 2023 02:43 PM Reporting Lab: [facility] [address] [address] Performing Lab: [facility] SYSTEMRR[facility]ITALN [facility]OSPITALUSE[address] [address] CALCIUM 9.0 mg/dL 8.5-10.2 Mar 04, 2023 08:57 AM [facility] CBC AND DIFF (AUTO) Specimen Type: BLOOD No comment entered. Ordering Provider: MIYA LAU Report Released Date/Time: Feb 04, 2023 02:43 PM Reporting Lab: [facility]ITALUSETS [address] [address] Performing Lab: [facility]RL [facility]ERN [facility]OSPITALUSETS [address] [address] WBC 5.82 10*3/uL 4.50-11.00 RBC 5.29 10*6/uL 4.23-5.66 HGB 16.4 g/dL 12.8-17 HCT 49.9 39.2-50.4 MCV 94.3 fL 82-99 MCHC 32.9 g/dL 30.8-35.1 PLT 248 10*3/uL 140-360 RDW-CV 13.6 12.0-16.0 Traill, Abs 1.09 10*3/uL 0.30-1.10 MCH 31.0 pg 26.2-32.6 Neut % 57.3 43.7-75.8 Lymph % 19.9 14.0-42.3 Traill % 18.7 H 5.1-13.7 Eos % 3.3 0.4-6.8 Baso % 0.5 0.1-2.0 Neut, Abs 3.33 10*3/uL 2.20-7.60 Lymph, Abs 1.16 10*3/uL 1.00-3.20 Eos, Abs 0.19 10*3/uL 0.03-0.44 Baso, Abs 0.03 10*3/uL 0.01-0.13 Immature Gran % 0.3 0.0-0.7 Immature Gran, Abs 0.02 10*3/uL 0.00-0.06 Vital Signs: All taken on the encounter date This section contains inpatient and outpatient Vital Signs collected on the date of the Encounter. Date/Time Temperature Pulse Blood Pressure Respiratory Rate SP02 Pain Height Weight Body Mass Index Source Mar 10, 2023 08:56 AM 132/74 [facility] [place] [facility] Mar 10, 2023 08:13 AM 140/78 [facility] [place] [facility] Mar 10, 2023 08:07 AM 97.1 84 16 96 231 32 [facility] [place] [facility] Social History: Smoking Status (Most current) and Tobacco Use (All prior to encounter date) This section includes the most current, and the historical, smoking and tobacco- related health factors from the [place] facility where the Encounter took place. Current Smoking Status This section includes the most current smoking, or tobacco-related health factor, from the MS facility where the Encounter took place. Date/Time Current Smoking Status Comment Facil ity June 17, 2022 01:00 PM VA-TOBACCO NEVER USED [facility] [place] [facility] Tobacco Use History This section includes a history of the smoking, or tobacco-related health factors, that were collected on or before the date of the Encounter. The data comes from the MS facility where the Encounter took place. Date/Time Smoking Status/Tobacco Use Comment F acility Jul 16, 2021 01:00 PM VA-TOBACCO NEVER USED [facility] [place] [facility] July 03, 2020 01:00 PM VA-TOBACCO NEVER USED [facility] [facility] Jul 11, 2019 02:57 PM VA-TOBACCO NEVER USED [facility] [place] [facility] Jan 14, 2019 08:50 AM VA-TOBACCO NEVER USED [facility] [place] [facility] Mar 04, 2018 01:20 PM VA-TOBACCO NEVER USED [facility] [place] [facility] May 27, 2017 11:01 AM LIFETIME NON-TOBACCO USER [facility] [place] [facility] May 20, 2016 10:51 AM LIFETIME NON-TOBACCO USER [facility] [place] [facility] May 03, 2015 01:13 PM LIFETIME NON-TOBACCO USER [facility] Advance Directives: All historical and current Section Date Range: From patient's date of to the date document was created. This section includes ALL of a patient's completed or amended [place] Advance and Rescinded Directives. The entries below indicate that a directive exists for the patient, but an actual copy is not included with this document. The data comes from all [place] facilities. Date Advance Directives Provider Source Nov 08, 2019 ADVANCE DIRECTIVE MIGDALIA MILES [facility] [facility] Apr 14, 2019 ADVANCE DIRECTIVE RAFAL BULLARD MS C [facility] Encounter Notes: All associated encounter notes This section contains the clinical notes associated to the Encounter. Date/Time Encounter Note(s) Provider Source Mar 11, 2023 04:01 PM LETTERS: LOCAL TITLE: PATIENT LETTER (T) STANDARD TITLE: LETTERS DATE OF NOTE: MAR 11, 2023@16:01 ENTRY DATE: MAR 11, 2023@16:01:19 AUTHOR: MIYA LAU EXP COSIGNER: URGENCY: STATUS: COMPLETED [facility] Toll Free Number Primary Care Telephone Assistance can be reached at extension [phone] [facility] scheduling can be reached at extension [phone] [facility] scheduling can be reached at ext [phone] PRASANTH GONZALES [address] [place] [address], [phone] Dear , Primary care team reviewed your recent blood tests. Your thiamine level was slightly on the lower side of the normal. I have taken the liberty to prescribe you some vitamin B1(thiamine) supplements which are going to be mailed. Your other lab work was okay This is a copy for your own information and also to share with any other provider involved in your care. Sincerely, Your Primary Care Team [facility] [address] [facility] [address] [place] [address] [place] [address] [phone] [facility] [address] [place] [address] [place] [address] [phone] [facility] [address] [facility] [place] [address] [place] [address] [phone] MIYA LAU [facility] [place] [facility] Mar 10, 2023 09:05 AM PHYSICIAN NOTE: LOCAL TITLE: MD NOTE STANDARD TITLE: PHYSICIAN NOTE DATE OF NOTE: MAR 10, 2023@09:05 ENTRY DATE: MAR 10, 2023@09:05:44 AUTHOR: MIYA LAU EXP COSIGNER: URGENCY: STATUS: COMPLETED Patient Name: PRASANTH GONZALES VITALS: Patient temperature: 97.1 F [36.2 C] (03/10/2023 08:07) Blood pressure: 132/74 (03/10/2023 08:56) Patient height: 71 in [180.3 cm] (09/02/2022 08:44) Patient weight: 231 lb [104.78 kg] (03/10/2023 08:07) Patient BMI: BMI: 32.3 Patient pulse: 84 (03/10/2023 08:07) Patient respiration: 16 (03/10/2023 08:07) Patient Pulse Oximetry: 96% (03/10/2023 08:07) Pain Ratin (02/04/2023 13:50) Active [facility] Medications: Active Outpatient Medications (including Supplies): Active Outpatient Medications Status 1) ALBUTEROL 90MCG (CFC-F) 200D ORAL INHL INHALE 2 PUFFS ACTIVE BY MOUTH EVERY 6 HOURS NEEDED FOR BRONCHOSPASM PREVENTION 2) BUDESONIDE 160/FORMOTER 4.5MCG 120D INH INHALE 2 ACTIVE PUFFS BY MOUTH TWICE DAILY - RINSE MOUTH AFTER USE 3) DICLOFENAC NA 1% TOP GEL APPLY 4 GRAMS TOPICALLY FOUR ACTIVE TIMES A DAY FOR OSTEOARTHRITIS - USE DOSING CARD PROVIDED IN BOX 4) EZETIMIBE 10MG TAB TAKE ONE TABLET BY MOUTH ONCE ACTIVE DAILY TO LOWER CHOLESTEROL 5) METOPROLOL SUCCINATE 25MG SA TAB TAKE ONE TABLET BY ACTIVE MOUTH ONCE DAILY FOR BLOOD PRESSURE/HEART Active Non-VA Medications Status 1) Non-VA ACETAMINOPHEN TAB BY MOUTH ACTIVE 2) Non-VA ASPIRIN 81MG EC TAB 81MG BY MOUTH DAILY ACTIVE 3) Non-VA CHOLECALCIF 50MCG (D3-2,000UNIT) TAB 2000UNIT ACTIVE BY MOUTH DAILY 4) Non-VA FISH OIL 500MG DHA/EPA CAP,ORAL 1200 MG BY ACTIVE MOUTH DAILY 5) Non-VA GLUCOSAMINE/CHONDROITIN CAP/TAB 1 TABLET BY ACTIVE MOUTH DAILY 10 Total Medications Remote Medications: No Active Remote Medications for this patient Headache and dizziness patient is feeling much better was sent to [facility] neurology appointment is still pending I have given him his brain MRI results from November Central sleep apnea unable to use CPAP has been using MAD patient was seen by [facility] he has a follow-up appointment where he would discuss further treatment options and if CPAP needed he would contact us. chronic PTSD symptoms have been under good control Peripheral neuropathy numbness in the feet remains the same Varicose veins and venous insufficiency and peripheral vascular disease . History of varicose vein ablation Hypercholesterolemia on Zetia his lipid profile was okay COPD, asthma has been complaining of cough for the last 6 weeks phlegm is light yellow High-grade bladder cancer getting cystoscopy being followed by urology Chronic back pain--denies any problem Hearing loss has been using hearing aid Right ear pain possible TMJ using Voltaren gel On examination: patient is alert and oriented X3 vitals are stable, He is in no apparent distress. CVS: regular rate and rhythm Lungs: clear to auscultation ABD: Benign EXT: no edema. Reviewed lab work Vitamin B1 is pending Syphilis antibody with reflex was nonreactive CBC shows WBC 5.8 hemoglobin of 16.4 and hematocrit of 49.9 platelet count 248 Calcium 9 vitamin B12 366 TSH was 1.13 normal vitamin D3 Normal kidney functions and electrolytes Normal liver function test Total cholesterol 194, LDL 126, HDL 43 and triglycerides 126 A/P: Headache and dizziness improved appointment with neurology pending Central sleep apnea unable to use CPAP has been using MAD has follow-up appointment with sleep clinic chronic PTSD symptoms under good control Peripheral neuropathy numbness in the feet remains the same Varicose veins and venous insufficiency and peripheral vascular disease . History of varicose vein ablation Hypercholesterolemia on Zetia lipids shows LDL 126 . COPD, asthma--cough syrup complaining having some cough for the last 6 weeks using cough syrup Bladder cancer High Grade was getting cystoscopy being followed by urology Chronic back pain--no problem Hearing loss has been using hearing aid Right ear pain possible TMJ using Voltaren gel cant wear hearing aid on the right follow-up in 6 months. Medication Reconciliation: Outpatient: Has the patient been taking medications as documented in the EMLR? YES: The patient has been taking medications as documented in the EMLR. Essential Medication List for Review used to complete this medication reconciliation. INCLUDED IN THIS LIST: Alphabetical list of active outpatient prescriptions dispensed from this VA (local) and dispensed from another VA or DoD facility (remote) as well as inpatient orders (local, pending and active), local clinic medications, locally documented non-VA medications, and local prescriptions that have or been discontinued in the past 90 days. - All changes in medications, including all non-VA/Herbal/OTC medications were entered into CPRS. - If there were any medications the patient should no longer take, they were discontinued. - The patient/caregiver was instructed to update this list, discard old lists, and take this list to the next appointment, whether with a VA or non-VA provider. /rosio/ MIYA LAU MD STAFF PHYSICIAN Signed: 03/10/2023 09:07 MIYA LAU [facility] [place] [facility] Mar 10, 2023 08:16 AM PREVENTIVE MEDICINE NURSING NOTE: LOCAL TITLE: CLINICAL REMINDERS/NURSING STANDARD TITLE: PREVENTIVE MEDICINE NURSING NOTE DATE OF NOTE: MAR 10, 2023@08:16 ENTRY DATE: MAR 10, 2023@08:16:15 AUTHOR: ALANA RUBIO EXP COSIGNER: URGENCY: STATUS: COMPLETED PAVE Foot Check: Patient refused limb care exam. : pt indicates that he has upcoming apt next month The patient was advised the [place] mandates all patients with diabetes mellitus, end stage renal disease, peripheral vascular disease, or sensory neuropathy should have a complete foot check completed annually. This includes a visual exam of the skin, pedal pulses and a sensory exam. Patients with any abnormality noted during the foot check should be referred to a specialist. /rosio/ ALANA RUBIO LPN License Practical Nurse Signed: 03/10/2023 08:20 ALANA RUBIO [facility]
--- OUTSIDE RECORDS SUMMARY | 2024-02-16 09:06 | XMS_ITS | Encounter Summary ---
Author Name [facility] [place] [facility] [place] Organization [facility] [place] [facility] [place] Address [address] [place] [address] Care Team Providers Care Product Controller Name Role Phone SUBHA VELAZQUEZ Primary Care [...] Relationship to Policy Bryson GREGORY PUGA-WN R CO SPECIAL CLASS GREGORY DIOP Sep 15, 2011 GREGORY PUGA [id number] PAULA GONZALES PATIENT [facility] [place] [facility] [facility] [employer] [facility] Aug 09, 2017 [id number] PAULA GONZALES PATIENT [facility] [place] [facility] SUPP PL Aug 09, 2017 [id number] PAULA GONZALES PATIENT MEDICARE (WNR) MEDICARE (M) PART A Nov 10, 2019 PART A [id number] PAULA GONZALES PATIENT MEDICARE (WNR) MEDICARE (M) PART B Apr 09, 2010 PART B [id number] PAULA GONZALES PATIENT MEDICARE (WNR) MEDICARE (M) PART B Apr 09, 2010 PART B [id number] PAULA GONZALES PATIENT MEDICARE (WNR) MEDICARE (M) PART B Apr 09, 2010 PART B [id number] PAULA GONZALES PATIENT MEDICARE (WNR) MEDICARE (M) PART A Nov 09, 2009 PART A [id number] PAULA GONZALES PATIENT MEDICARE (WNR) MEDICARE (M) PART A Nov 09, 2009 PART A [id number] [phone] PAULA GONZALES PATIENT Selected Encounter This section includes the information on record at [place] for the Encounter. Date/Time Encounter Type Encounter Description Reason Provider Source Mar 04, 2023 09:00 AM MTMS BY NIMCO COYLE 15 MIN CLINICAL PHARMACY ICD-10-CM R03.0 Elevated blood-pressure reading, w/o diagnosis of htn VIVIAN NANCE Mikhail Encounter Template Text not used by [place] Assessments - Encounter Diagnoses This section includes the primary and secondary diagnoses documented for the Encounter. Date/Time Primary/Secondary Diagnosis Diagnosis Name Provider Source Mar 04, 2023 08:05 PM PRIMARY Elevated blood-pressure reading, w/o diagnosis of htn [facility] Plan of Treatment: Future Appointments (+ 6 months) and Future Tests (+/- 45 days) The Plan of Treatment section includes future care activities for the patient from all [place] treatmentfacilities. This section includes future appointments and future orders which are active, pending or scheduled. Future Appointments This section includes appointments that were scheduled to occur 6 months from the date of the Encounter, up to a maximum of 20 appointments. The data comes from all [place] treatment facilities. Appointment Date/Time Appointment Type Appointme nt Facility Name Mar 10, 2023 08:30 AM [facility]UL[facility] - [facility] Mar 10, 2023 01:00 PM AMBULATORY - PSYCHIATRY [facility] [place] [facility] Mar 24, 2023 01:00 PM [facility] Apr 02, 2023 03:00 PM [facility]BULAT[facility] - [facility]AB [facility]ICIN [facility] [place] [facility] Apr 07, 2023 01:00 PM AMBULATORY [...] AMBULATORY - PSYCHIATRY [facility] [place] [facility] Jun 02, 2023 01:00 PM AMBULATORY - PSYCHIATRY [facility] [place] [facility] Jun 05, 2023 09:00 AM AMBULATORY - NONE [facility] [place] [facility] Jun 09, 2023 09:30 AM AMBULATORY - MEDICINE [facility] [place] [facility] Jun 09, 2023 09:31 AM AMBULATORY - MEDICINE [place] [place] [facility] June 30, 2023 01:00 PM AMBULATORY - PSYCHIATRY [facility] [place] [facility] Lab Results: +/- 30 days of [...] 2023 08:57 AM [facility] [place] [facility] VITAMIN B-1 (THIAMINE)-(QU) Specimen Type: PLASMA Comment: Vitamin supplementation within 24 hours prior to blood draw may affect the accuracy of the results. This test was developed and its analytical performance characteristics have been determined by [employer] [place]. It has not been cleared or approved by the U.S. Food and Drug Administration. This assay has been validated pursuant to the CLIA regulations and is used for clinical purposes. Test Performed by [facility], [facility], [address] [place], [place] Chris Alba M.D., Ph.D., Director of Laboratories , CLIA [id number] TEST PERFORMED AT: , Ordering Provider: MIYA LAU Report Released Date/Time: Feb 04, 2023 02:43 PM Reporting Lab: [address] [address] Performing Lab: [facility] [address] [address] VITAMIN B-1 (THIAMINE)-(Q U) 8 nmol/L 8-Mar 04, 2023 08:57 AM [facility] SYPHILIS ABS W/RFLX Specimen Type: SERUM Comment: No laboratory evidence of syphilis infection. If recent exposure is suspected, re-draw sample in 2-4 weeks and repeat algorithm. Testing performed by T. pallidum specific immunoassay. Ordering Provider: MIYA LAU Report Released Date/Time: Feb 04, 2023 02:43 PM Reporting Lab: [facility] [address] [facility] [address] Performing Lab: [facility] [address] [facility] [address] SYPHILIS ABS W/RFLX Non Reactive Non Reactive Mar 04, 2023 08:57 AM [facility] LIVER FUNCTION Specimen Type: SERUM No comment entered. Ordering Provider: MIYA LAU Report Released Date/Time: Feb 04, 2023 02:43 PM Reporting Lab: [address] [address] Performing Lab: [address] [address] PROTEIN,TOTAL 7.3 g/dL 6.0-8.3 ALBUMIN 4.0 g/dL 3.5-5.0 ALKALINE PHOSPHATASE 109 U/L 40-150 AST 19 U/L 5-34 ALT 27 U/L BILIRUBIN, TOTAL 1.0 mg/dL 0.2-1.2 Mar 04, 2023 08:57 AM [facility] VITAMIN B12 Specimen Type: SERUM No comment entered. Ordering Provider: MIYA LAU Report Released Date/Time: Feb 04, 2023 02:43 PM Reporting Lab: [address] [address] Performing Lab: [address] [address] VITAMIN B12 366 pg/mL 200-900 Mar 04, 2023 08:57 AM [facility] BASIC METABOLIC PANEL (fasting) Specimen Type: SERUM No comment entered. Ordering Provider: MIYA LAU Report Released Date/Time: Feb 04, 2023 02:43 PM Reporting Lab: [address] [address] Performing Lab: [address] [address] UREA NITROGEN 22 mg/dL 7-25 GLUCOSE 84 mg/dL 65-100 SODIUM 140 mmol/L 135-145 POTASSIUM 4.6 mmol/L 3.5-5.0 CHLORIDE 104 mmol/L 100-110 CO2 25 meq/L 20-30 CREATININE, Serum 1.01 mg/dL 0.50-1.40 eGFR(CKD-EPI 2020) 76 mL/min >60 Mar 04, 2023 08:57 AM [facility] LIPID PANEL FASTING Specimen Type: SERUM No comment entered. Ordering Provider: MIYA LAU Report Released Date/Time: Feb 04, 2023 02:43 PM Reporting Lab: [address] [address] Performing Lab: [facility] [place] [facility] [address] [facility] [address] CHOLESTEROL 194 mg/dL TRIGLYCERIDE 126 mg/dL 0-150 LDL calculated 126 mg/dL 0-129 CHOL/HDL 4.5 HDL CHOLESTEROL 43 mg/dL 40-60 Mar 04, 2023 08:57 AM [facility] [place] [facility] VITAMIN D (25-OH) Specimen Type: SERUM No comment entered. Ordering Provider: MIYA LAU Report Released Date/Time: Feb 04, 2023 02:43 PM Reporting Lab: [facility] [place] [facility] [address] [facility] [address] Performing Lab: [facility] [place] [facility] [address] [facility] [address] VITAMIN D (25-OH) 42 ng/mL 20-50 Mar 04, 2023 08:57 AM [facility] [place] [facility] MAGNESIUM Specimen Type: SERUM No comment entered. Ordering Provider: MIYA LAU Report Released Date/Time: Feb 04, 2023 02:43 PM Reporting Lab: [facility] [place] [facility] [address] [facility] [address] Performing Lab: [facility] [place] [facility] [address] [facility] [address] MAGNESIUM 2.1 mg/dL 1.6-2.6 Mar 04, 2023 08:57 AM [facility] [place] [facility] CALCIUM Specimen Type: SERUM No comment entered. Ordering Provider: MIYA LAU Report Released Date/Time: Feb 04, 2023 02:43 PM Reporting Lab: [facility] [place] [facility] [address] [facility] [address] Performing Lab: [facility] [place] [facility] [address] [facility] [address] CALCIUM 9.0 mg/dL 8.5-10.2 Mar 04, 2023 08:57 AM [facility] [place] [facility] TSH Specimen Type: SERUM No comment entered. Ordering Provider: MIYA LAU Report Released Date/Time: Feb 04, 2023 02:43 PM Reporting Lab: [facility] [address] [facility] [address] Performing [facility]: [facility] [address] [facility] [address] TSH 1.13 u[IU]/mL 0.35-5.00 Mar 04, 2023 08:57 AM [facility] CBC AND DIFF (AUTO) Specimen Type: BLOOD No comment entered. Ordering Provider: MIYA LAU Report Released Date/Time: Feb 04, 2023 02:43 PM Reporting [facility]: [facility] [address] [facility] [address] Performing [facility]: [facility] [address] [facility] [address] WBC 5.82 10*3/uL 4.50-11.00 RBC 5.29 10*6/uL 4.23-5.66 HGB 16.4 g/dL 12.8-17 HCT 49.9 39.2-50.4 MCV 94.3 fL 82-99 MCHC 32.9 g/dL 30.8-35.1 PLT 248 10*3/uL 140-360 RDW-CV 13.6 12.0-16.0 [place], Abs 1.09 10*3/uL 0.30-1.10 MCH 31.0 pg 26.2-32.6 Neut % 57.3 43.7-75.8 Lymph % 19.9 14.0-42.3 [place] % 18.7 H 5.1-13.7 Eos % 3.3 [...] and tobacco- related health factors from the [place] facility where the Encounter took place. Current Smoking Status This section includes the most current smoking, or tobacco-related health factor, from the [place] facility where the Encounter took place. Date/Time Current Smoking Status Comment Louisa mottay June 17, 2022 01:00 PM VA-TOBACCO NEVER USED [facility] [place] [facility] Tobacco Use History This section includes a history of the smoking, or tobacco-related health factors, that were collected on or before the date of the Encounter. The data comes from the [place] facility where the Encounter took place. Date/Time Smoking Status/Tobacco Use Comment F acility Jul 16, 2021 01:00 PM VA-TOBACCO NEVER USED [facility] [place] [facility] July 03, 2020 01:00 PM VA-TOBACCO NEVER USED [facility] [place] [facility] Jul 11, 2019 02:57 PM VA-TOBACCO NEVER USED [facility] [place] [facility] Jan 14, 2019 08:50 AM VA-TOBACCO NEVER USED [facility] [place] [facility] Mar 04, 2018 01:20 PM VA-TOBACCO NEVER USED [facility] [place] [facility] May 27, 2017 11:01 AM LIFETIME NON-TOBACCO USER [facility] [place] [facility] May 20, 2016 10:51 AM LIFETIME NON-TOBACCO USER [facility] [place] [facility] May 03, 2015 01:13 PM LIFETIME NON-TOBACCO USER [facility] [place] [facility] Advance Directives: All historical and current Section Date Range: From patient's date of to the date document was created. This section includes ALL of a patient's completed or amended [place] Advance and Rescinded Directives. The entries below indicate that a directive exists for the patient, but an actual copy is not included with this document. The data comes from all [place] facilities. Date Advance Directives Provider Source Nov 08, 2019 ADVANCE DIRECTIVE MIGDALIA MILES [facility] [place] [facility] Apr 14, 2019 ADVANCE DIRECTIVE RAFAL BULLARD [facility] [place] [facility] Encounter Notes: All associated encounter notes This section contains the clinical notes associated to the Encounter. Date/Time Encounter Note(s) Provider Source Mar 04, 2023 08:06 PM ADDENDUM: LOCAL TITLE: Addendum STANDARD TITLE: ADDENDUM DATE OF NOTE: MAR 04, 2023@20:06:27 ENTRY DATE: MAR 04, 2023@20:06:29 AUTHOR: VIVIAN NANCE COSIGNER: URGENCY: STATUS: COMPLETED Pt at home blood pressure readings are ~56 % wnl. Pt reports he does put his bp cuff on quite tight. Recommended to loosen it a bit as that could potentially cause false high readings. For now recommended to continue to monitor BP, may consider adding hctz or amlodipine if BP increases consistently. Noted pt had labs done today which resulted after CPP visit. Maybe consider retrialing a statin- pravastatin? ASCVD Risk: 33.4-38.3% ( depending on if metoprolol is considered as htn tx. /rosio/ VIVIAN NANCE, PHARMD,BCPS CLINICAL PHARMACY PRACTITIONER Signed: 03/04/2023 20:11 Receipt Acknowledged By: 03/04/2023 20:14 /rosio/ MIYA LAU MD STAFF PHYSICIAN --- Original Document --- 03/04/23 PHARMACY CLINIC NOTE: PRASANTH GONZALES, 77 yo WHITE MALE, presents for [id number] follow up visit for htn management. Today, pt reports he is doing ok. He came in for fasting labs this morning. Pt reports he gave up coffee and has been drinking herbal tea. He also states he donated all the canned soup he bought to the [employer] soup [facility]. He states his blood pressure readings have been all over the place and questioning how it can go from very high to low. 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 Pt reports he was putting on BP cuff quite tight, therefore could be falsely high readings. readings were wnl. Allergies/ADR: ATORVASTATIN Active and Recently Outpatient Medications (including Supplies): Active Outpatient Medications [...] ACTIVE MOUTH ONCE DAILY FOR BLOOD PRESSURE/HEART Inactive Outpatient Medications Status 1) AMOXICILLIN 500MG CAP TAKE FOUR CAPSULES BY MOUTH ONE TIME 30-60 MINUTES BEFORE DENTAL PROCEDURE 2) EZETIMIBE 10MG TAB TAKE ONE TABLET BY MOUTH ONCE DISCONTINUED DAILY TO LOWER CHOLESTEROL 3) MELOXICAM 15MG TAB TAKE ONE TABLET BY MOUTH ONCE DAILY FOR PAIN 4) MIRABEGRON 25MG SA TAB TAKE ONE TABLET BY MOUTH ONCE DAILY DIRECTED BY PROVIDER FOR OVERACTIVE BLADDER Active Non-VA Medications Status 1) Non-VA ACETAMINOPHEN TAB BY MOUTH ACTIVE 2) Non-VA ASPIRIN 81MG EC TAB 81MG BY MOUTH DAILY ACTIVE 3) Non-VA CHOLECALCIF 50MCG (D3-2,000UNIT) TAB 2000UNIT ACTIVE BY MOUTH DAILY 4) Non-VA FISH OIL 500MG DHA/EPA CAP,ORAL 1200 MG BY ACTIVE MOUTH DAILY 5) Non-VA GLUCOSAMINE/CHONDROITIN CAP/TAB 1 TABLET BY ACTIVE MOUTH DAILY 6) Non-VA MIRABEGRON PA-F TAB,SA DIRECTED BY ACTIVE MOUTH ONCE DAILY 15 Total Medications Labs: CHEM 7 TREND LAB CUMULATIVE SELECTED Collection DT Spec GLUCOSE BUN CREATIN Sodium K+/Pot CL CO2 08/28/2022 07:36 SERUM 95 24 0.96 134 L 4.8 103 27 02/20/2022 08:42 SERUM 89 31 H 0.99 138 5.0 105 26 08/21/2021 07:32 SERUM 89 32 H 0.98 140 4.7 108 25 03/22/2021 08:28 SERUM 106 H 29 H 1.08 137 4.7 101 25 09/20/2020 08:00 SERUM 105 H 32 H 1.10 138 4.9 102 27 LAB CUMULATIVE SELECTED 2 No selection items chosen for this component. CHEM 7 Results Collection DT Spec Sodium K+/Pot CL CO2 GLUCOSE BUN 08/28/2022 07:36 SERUM 134 L 4.8 103 27 95 24 02/20/2022 08:42 SERUM 138 5.0 105 26 89 31 H 08/21/2021 07:32 SERUM 140 4.7 108 25 89 32 H 03/22/2021 08:28 SERUM 137 4.7 101 25 106 H 29 H 09/20/2020 08:00 SERUM 138 4.9 102 27 105 H 32 H 03/30/2020 08:18 SERUM 140 4.7 104 27 96 26 H 11/08/2019 08:42 SERUM 137 4.4 103 24 82 33 H 08/17/2018 14:01 SERUM 140 4.6 106 28 86 21 04/16/2018 08:26 SERUM 142 4.7 108 25 96 29 H 02/23/2018 10:06 SERUM 141 4.9 105 27 96 31 H 02/23/2018 10:06 SERUM 141 5.1 H 105 28 97 31 H 09/25/2017 08:28 SERUM 140 4.9 106 29 79 29 H 06/12/2017 09:05 SERUM 141 4.9 106 28 101 H 27 H 02/13/2017 08:59 SERUM 138 5.0 104 26 94 28 H 10/01/2016 13:52 SERUM 140 4.3 105 27 97 31 H 02/13/2016 09:14 SERUM 139 4.7 106 26 94 30 H 04/10/2000 08:26 SERUM 141 4.3 108 22 86 28 H eGFR CKD-EPI 202008/28/22 07:36 81 SERUM LIVER PANEL TREND Collection DT Spec AST ALT T BILI ALK SHARMIN T. PROT ALBUMIN 08/28/2022 07:36 SERUM 23 37 1.1 103 7.0 4.1 02/20/2022 08:42 SERUM 21 30 1.3 H 101 7.1 4.0 08/21/2021 07:32 SERUM 17 25 1.5 H 89 6.4 3.6 03/22/2021 08:28 SERUM 17 22 1.3 H 194 H 7.5 4.0 03/30/2020 08:18 SERUM 19 29 1.1 113 6.7 3.9 HEMOGLOBIN A1C TREND Collection DT Spec HGBA1c 08/28/2022 07:36 BLOOD 5.3 03/22/2021 08:28 BLOOD 5.3 03/30/2020 08:18 BLOOD 5.4 11/08/2019 08:42 BLOOD 5.7 H 08/17/2018 14:01 BLOOD 5.6 LIPID PANEL TREND Collection DT Spec CHOL HDL CHO/HDL LDL-c TRIG 08/28/2022 07:36 SERUM 192 41 4.7 131 H 98 02/20/2022 08:42 SERUM 225 H 46 4.9 158 H 106 08/21/2021 07:32 SERUM 194 41 4.7 134 H 95 03/22/2021 08:28 SERUM 276 H 42 6.6 201 H 165 H 09/20/2020 08:00 SERUM 233 H 47 5.0 162 H 118 Vitals: Ht: 71 in [180.3 cm] (09/02/2022 08:44) Wt: 226 lb [102.51 kg] (02/04/2023 13:50) BMI: BMI: 31.6 BP: 152/68 (02/04/2023 13:50) HR: 67 (02/04/2023 13:50) Assessment: HTN: Goal BP = <130/80 mmHg 02/11/23- BP readings taken after pt has been seated > 5 mins SBP DBP 131 72 139 77 142 74 Avgerage 137 74 ASCVD Risk: 33.4-38.3% ( depending on if metoprolol is considered as htn tx) -Lipids:Elevated- PCP to assess during OV on 03/10/23 -ASA: 81 mg daily Plan: - Continue to monitor blood pressure - Could consider adding amlodipine or hctz in the future. - Recommended pt to contact CPP/PCP if BP is on the rise > 140/90 continiously - Recommended a healthy diet, low in processed foods and minimize salt usage - At this time additional medication is not warranted. - Pt will f/u with [facility] in next few months for pre-surgery clearance. - Would recommend further evaluation and consideration of statin if TC is above 190 mg/dL EDUCATION -A shared decision-making approach was used in the development of this plan, involving the , clinician, and any caregivers present. The was provided the opportunity express questions or concerns, and the plan was adjusted as needed to address these concerns. -Reviewed with any new medications, changes to the medication list, education, and plan from today's visit. Patient (and/or caregiver) verbalized understanding of the plan, including possible known risks and benefits, and had no additional questions. RTC: prn Time Spent: 20 mins PBM PharmD Pharmacotherapy Rem V12: PHARMACIST INTERVENTIONS: HYPERTENSION Medication monitoring, no dosage change required, continue to monitor and assess /rosio/ VIVIAN NANCE PHARMD,BCPS CLINICAL PHARMACY PRACTITIONER Signed: 03/04/2023 20:06 VIVIAN NANCE [facility] [place] [facility] Mar 04, 2023 09:40 AM PHARMACY OUTPATIEN T NOTE: LOCAL TITLE: PHARMACY CLINIC NOTE STANDARD TITLE: PHARMACY OUTPATIENT NOTE DATE OF NOTE: MAR 04, 2023@09:40 ENTRY DATE: MAR 04, 2023@09:41:02 AUTHOR: VIVIAN NANCE EXP COSIGNER: URGENCY: STATUS: COMPLETED PHARMACY CLINIC NOTE Has ADDENDA PRASANTH GONZALES, 77 yo WHITE MALE, presents for htvo-tp-apot follow up visit for htn management. Today, pt reports he is doing ok. He came in for fasting labs this morning. Pt reports he gave up coffee and has been drinking herbal tea. He also states he donated all the canned soup he bought to the [employer] soup [facility]. He states his blood pressure readings have been all over the place and questioning how it can go from very high to low. 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 Pt reports he was putting on BP cuff quite tight, therefore could be falsely high readings. readings were wnl. Allergies/ADR: ATORVASTATIN Active and Recently Outpatient Medications (including Supplies): Active Outpatient Medications [...] ACTIVE MOUTH ONCE DAILY FOR BLOOD PRESSURE/HEART Inactive Outpatient Medications Status 1) AMOXICILLIN 500MG CAP TAKE FOUR CAPSULES BY MOUTH ONE TIME 30-60 MINUTES BEFORE DENTAL PROCEDURE 2) EZETIMIBE 10MG TAB TAKE ONE TABLET BY MOUTH ONCE DISCONTINUED DAILY TO LOWER CHOLESTEROL 3) MELOXICAM 15MG TAB TAKE ONE TABLET BY MOUTH ONCE DAILY FOR PAIN 4) MIRABEGRON 25MG SA TAB TAKE ONE TABLET BY MOUTH ONCE DAILY DIRECTED BY PROVIDER FOR OVERACTIVE BLADDER Active Non-VA Medications Status 1) Non-VA ACETAMINOPHEN TAB BY MOUTH ACTIVE 2) Non-VA ASPIRIN 81MG EC TAB 81MG BY MOUTH DAILY ACTIVE 3) Non-VA CHOLECALCIF 50MCG (D3-2,000UNIT) TAB 2000UNIT ACTIVE BY MOUTH DAILY 4) Non-VA FISH OIL 500MG DHA/EPA CAP,ORAL 1200 MG BY ACTIVE MOUTH DAILY 5) Non-VA GLUCOSAMINE/CHONDROITIN CAP/TAB 1 TABLET BY ACTIVE MOUTH DAILY 6) Non-VA MIRABEGRON PA-F TAB,SA DIRECTED BY ACTIVE MOUTH ONCE DAILY 15 Total Medications Labs: CHEM 7 TREND LAB CUMULATIVE SELECTED Collection DT Spec GLUCOSE BUN CREATIN Sodium K+/Pot CL CO2 08/28/2022 07:36 SERUM 95 24 0.96 134 L 4.8 103 27 02/20/2022 08:42 SERUM 89 31 H 0.99 138 5.0 105 26 08/21/2021 07:32 SERUM 89 32 H 0.98 140 4.7 108 25 03/22/2021 08:28 SERUM 106 H 29 H 1.08 137 4.7 101 25 09/20/2020 08:00 SERUM 105 H 32 H 1.10 138 4.9 102 27 LAB CUMULATIVE SELECTED 2 No selection items chosen for this component. CHEM 7 Results Collection DT Spec Sodium K+/Pot CL CO2 GLUCOSE BUN 08/28/2022 07:36 SERUM 134 L 4.8 103 27 95 24 02/20/2022 08:42 SERUM 138 5.0 105 26 89 31 H 08/21/2021 07:32 SERUM 140 4.7 108 25 89 32 H 03/22/2021 08:28 SERUM 137 4.7 101 25 106 H 29 H 09/20/2020 08:00 SERUM 138 4.9 102 27 105 H 32 H 03/30/2020 08:18 SERUM 140 4.7 104 27 96 26 H 11/08/2019 08:42 SERUM 137 4.4 103 24 82 33 H 08/17/2018 14:01 SERUM 140 4.6 106 28 86 21 04/16/2018 08:26 SERUM 142 4.7 108 25 96 29 H 02/23/2018 10:06 SERUM 141 4.9 105 27 96 31 H 02/23/2018 10:06 SERUM 141 5.1 H 105 28 97 31 H 09/25/2017 08:28 SERUM 140 4.9 106 29 79 29 H 06/12/2017 09:05 SERUM 141 4.9 106 28 101 H 27 H 02/13/2017 08:59 SERUM 138 5.0 104 26 94 28 H 10/01/2016 13:52 SERUM 140 4.3 105 27 97 31 H 02/13/2016 09:14 SERUM 139 4.7 106 26 94 30 H 04/10/2000 08:26 SERUM 141 4.3 108 22 86 28 H eGFR CKD-EPI 202008/28/22 07:36 81 SERUM LIVER PANEL TREND Collection DT Spec AST ALT T BILI ALK SHARMIN T. PROT ALBUMIN 08/28/2022 07:36 SERUM 23 37 1.1 103 7.0 4.1 02/20/2022 08:42 SERUM 21 30 1.3 H 101 7.1 4.0 08/21/2021 07:32 SERUM 17 25 1.5 H 89 6.4 3.6 03/22/2021 08:28 SERUM 17 22 1.3 H 194 H 7.5 4.0 03/30/2020 08:18 SERUM 19 29 1.1 113 6.7 3.9 HEMOGLOBIN A1C TREND Collection DT Spec HGBA1c 08/28/2022 07:36 BLOOD 5.3 03/22/2021 08:28 BLOOD 5.3 03/30/2020 08:18 BLOOD 5.4 11/08/2019 08:42 BLOOD 5.7 H 08/17/2018 14:01 BLOOD 5.6 LIPID PANEL TREND Collection DT Spec CHOL HDL CHO/HDL LDL-c TRIG 08/28/2022 07:36 SERUM 192 41 4.7 131 H 98 02/20/2022 08:42 SERUM 225 H 46 4.9 158 H 106 08/21/2021 07:32 SERUM 194 41 4.7 134 H 95 03/22/2021 08:28 SERUM 276 H 42 6.6 201 H 165 H 09/20/2020 08:00 SERUM 233 H 47 5.0 162 H 118 Vitals: Ht: 71 in [180.3 cm] (09/02/2022 08:44) Wt: 226 lb [102.51 kg] (02/04/2023 13:50) BMI: BMI: 31.6 BP: 152/68 (02/04/2023 13:50) HR: 67 (02/04/2023 13:50) Assessment: HTN: Goal BP = <130/80 mmHg 02/11/23- BP readings taken after pt has been seated > 5 mins SBP DBP 131 72 139 77 142 74 [place] 137 74 ASCVD Risk: 33.4-38.3% ( depending on if metoprolol is considered as htn tx) -Lipids:Elevated- PCP to assess during OV on 03/10/23 -ASA: 81 mg daily Plan: - Continue to monitor blood pressure - Could consider adding amlodipine or hctz in the future. - Recommended pt to contact CPP/PCP if BP is on the rise > 140/90 continiously - Recommended a healthy diet, low in processed foods and minimize salt usage - At this time additional medication is not warranted. - Pt will f/u with diamond sizer in next few months for pre-surgery clearance. - Would recommend further evaluation and consideration of statin if TC is above 190 mg/dL EDUCATION -A shared decision-making approach was used in the development of this plan, involving the [place], clinician, and any caregivers present. The was provided the opportunity express questions or concerns, and the plan was adjusted as needed to address these concerns. -Reviewed with any new medications, changes to the medication list, education, and plan from today's visit. Patient (and/or caregiver) verbalized understanding of the plan, including possible known risks and benefits, and had no additional questions. RTC: prn Time Spent: 20 mins PBM PharmD Pharmacotherapy Rem V12: PHARMACIST INTERVENTIONS: HYPERTENSION Medication monitoring, no dosage change required, continue to monitor and assess /rosio/ VIVIAN NANCE PHARMD,[facility] PRACTITIONER Signed: 03/04/2023 20:06 03/04/2023 ADDENDUM STATUS: COMPLETED Pt at home blood pressure readings are ~56 % wnl. Pt reports he does put his bp cuff on quite tight. Recommended to loosen it a bit as that could potentially cause false high readings. For now recommended to continue to monitor BP, may consider adding hctz or amlodipine if BP increases consistently. Noted pt had labs done today which resulted after CPP visit. Maybe consider retrialing a statin- pravastatin? ASCVD Risk: 33.4-38.3% ( depending on if metoprolol is considered as htn tx. /es/ VIVIAN NANCE PHARMD,[facility] PRACTITIONER Signed: 03/04/2023 20:11 Receipt Acknowledged By: 03/04/2023 20:14 /rosio/ MIYA LAU MD STAFF PHYSICIAN [facility]
--- OUTSIDE RECORDS SUMMARY | 2024-02-16 09:06 | XMS_ITS | Encounter Summary ---
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 Laborer Orchard Name Role Phone SUBHA VELAZQUEZ Primary Care [...] Relationship to Policy Bryson GREGORY PUGA-WN R [place] SPECIAL CLASS GREGORY DIOP Sep 15, 2011 GREGORY PUGA [id number] PAULA GONZALES [facility]IENT [facility] SUPPLE[employer] [facility] Aug 09, 2017 [id number] [phone] PAULA GONZALES PATIENT [facility] MEDIC[facility] SUPPLEMEN MARIA ELENA [facility] Y SUPP PL Aug 09, 2017 [id number] PAULA GONZALES PATIENT MEDICARE (WNR) MEDICARE (M) PART A Nov 10, 2019 PART A [id number] PAULA GONZALES PATIENT MEDICARE (WNR) MEDICARE (M) PART B Apr 09, 2010 PART B [id number] PAULA GONZALES PATIENT MEDICARE (WNR) MEDICARE (M) PART B Apr 09, 2010 PART B [id number] PAULA GONZALES PATIENT MEDICARE (WNR) MEDICARE (M) PART B Apr 09, 2010 PART B [id number] PAULA GONZALES PATIENT MEDICARE (WNR) MEDICARE (M) PART A Nov 09, 2009 PART A [id number] PAULA GONZALES PATIENT MEDICARE (WNR) MEDICARE (M) PART A Nov 09, 2009 PART A [id number] PAULA GONZALES PATIENT Selected Encounter This section includes the information on record at [place] for the Encounter. Date/Time Encounter Type Encounter Description Reason Provider Source Mar 10, 2023 01:00 PM PSYTX W PT 45 [facility]UTES [facility] - IND ICD-10-CM F43.10 Post-traumatic stress disorder, unspecified NATHAN KIRK Mikhail Encounter Template Text not used by [place] Assessments - Encounter Diagnoses This section includes the primary and secondary diagnoses documented for the Encounter. Date/Time Primary/Secondary Diagnosis Diagnosis Name Provider Source Mar 13, 2023 10:25 PM PRIMARY Post-traumatic stress disorder, unspecified NATHAN KIRK [facility] Plan of Treatment: Future Appointments (+ 6 months) and Future Tests (+/- 45 days) The Plan of Treatment section includes future care activities for the patient from all [place] treatmentfacilities. This section includes future appointments and future orders which are active, pending or scheduled. Future Appointments This section includes appointments that were scheduled to occur 6 months from the date of the Encounter, up to a maximum of 20 appointments. The data comes from all [place] treatment facilities. Appointment Date/Time Appointment Type Appointme nt Facility Name Mar 24, 2023 01:00 PM AMBULATORY - [facility] Apr 02, 2023 03:00 PM AMBULATORY - REHAB [facility] Apr 07[facility] 2023 01:00 PM AMBULAT[facility] - [facility]IAT[facility] Apr 17, 2023 11:00 AM AMBULATORY - MEDICINE [facility] Apr 21, 2023 09:30 AM [...] MEDICINE [facility] Jun 09, 2023 09:31 AM [facility] June 30, 2023 01:00 PM AMBULATORY - PS[facility]CHIATRY [facility] Jul 28, 2023 01:00 PM AMBULATORY - PS[facility]IATRY [facility] Aug 04, 2023 01:00 PM AMBULATORY - [facility]IATRY [facility] Lab Results: +/- 30 days of the encounter This section includes the Chemistry and Hematology Lab Results on record with [place] for the patient. Radiology Reports and Pathology [...] analytical performance characteristics have been determined by [facility] [place], [place]. It has not been cleared or approved by the U.S. Food and Drug Administration. This assay has been validated pursuant to the CLIA regulations and is used for clinical purposes. Test Performed by [facility], [facility], [address] [place], [place] Chris Alba M.D., Ph.D., Director of Laboratories , CLIA [id number] TEST PERFORMED AT: , Ordering Provider: MIYA LAU Report Released Date/Time: Feb 04, 2023 02:43 PM Reporting Lab: [address] [address] Performing Lab: [facility] [address] [address] VITAMIN B-1 (THIAMINE)-(Q U) 8 nmol/L 8-Mar 04, 2023 08:[address] [facility] SYPHILIS ABS W/RFLX Specimen Type: SERUM Comment: No laboratory evidence of syphilis infection. If recent exposure is suspected, re-draw sample in 2-4 weeks and repeat algorithm. Testing performed by T. pallidum specific immunoassay. Ordering Provider: MIYA LAU Report Released Date/Time: Feb 04, 2023 02:43 PM Reporting Lab: [address] [address] Performing Lab: [facility] [address] [facility] [address] SYPHILIS ABS W/RFLX Non Reactive Non Reactive Mar 04, 2023 08:[address] [facility] LIVER FUNCTION Specimen Type: SERUM No comment entered. Ordering Provider: MIYA LAU Report Released Date/Time: Feb 04, 2023 02:43 PM Reporting Lab: [address] [address] Performing Lab: [address] [address] PROTEIN,TOTAL 7.3 g/dL 6.0-8.3 ALBUMIN 4.0 g/dL 3.5-5.0 ALKALINE PHOSPHATASE 109 U/L 40-150 AST 19 U/L 5-34 ALT 27 U/L BILIRUBIN, TOTAL 1.0 mg/dL 0.2-1.2 Mar 04, 2023 08:[address] [facility] VITAMIN B12 Specimen Type: SERUM No comment entered. Ordering Provider: MIYA LAU Report Released Date/Time: Feb 04, 2023 02:43 PM Reporting Lab: [address] [address] Performing Lab: [address] [address] VITAMIN B12 366 pg/mL 200-900 Mar 04, 2023 08:[address] [facility] BASIC METABOLIC PANEL (fasting) Specimen Type: SERUM No comment entered. Ordering Provider: MIYA LAU Report Released Date/Time: Feb 04, 2023 02:43 PM Reporting Lab: [address] [address] Performing Lab: [address] [address] UREA NITROGEN 22 mg/dL 7-25 GLUCOSE 84 mg/dL 65-100 SODIUM 140 mmol/L 135-145 POTASSIUM 4.6 mmol/L 3.5-5.0 CHLORIDE 104 mmol/L 100-110 CO2 25 meq/L 20-30 CREATININE, Serum 1.01 mg/dL 0.50-1.40 eGFR(CKD-EPI 2020) 76 mL/min >60 Mar 04, 2023 08:[address] [facility] LIPID PANEL FASTING Specimen Type: SERUM No comment entered. Ordering Provider: MIYA LAU Report Released Date/Time: Feb 04, 2023 02:43 PM Reporting Lab: [address] [address] Performing Lab: [facility] [place] [facility] [address] [address] CHOLESTEROL 194 mg/dL TRIGLYCERIDE 126 mg/dL 0-150 LDL calculated 126 mg/dL 0-129 CHOL/HDL 4.5 HDL CHOLESTEROL 43 mg/dL 40-60 Mar 04, 2023 08:57 AM [facility] [place] [facility] VITAMIN D (25-OH) Specimen Type: SERUM No comment entered. Ordering Provider: MIYA LAU Report Released Date/Time: Feb 04, 2023 02:43 PM Reporting Lab: [facility] [place] [facility] [address] [address] Performing Lab: [facility] [place] [facility] [address] [facility] [address] VITAMIN D (25-OH) 42 ng/mL 20-50 Mar 04, 2023 08:57 AM [facility] [place] [facility] MAGNESIUM Specimen Type: SERUM No comment entered. Ordering Provider: MIYA LAU Report Released Date/Time: Feb 04, 2023 02:43 PM Reporting Lab: [facility] [place] [facility] [address] [facility] [address] Performing Lab: [facility] [place] [facility] [address] [facility] [address] MAGNESIUM 2.1 mg/dL 1.6-2.6 Mar 04, 2023 08:57 AM [facility] [place] [facility] CALCIUM Specimen Type: SERUM No comment entered. Ordering Provider: MIYA LAU Report Released Date/Time: Feb 04, 2023 02:43 PM Reporting Lab: [facility] [place] [facility] [address] [facility] [address] Performing Lab: [facility] [place] [facility] [address] [facility] [address] CALCIUM 9.0 mg/dL 8.5-10.2 Mar 04, 2023 08:57 AM [facility] [place] [facility] TSH Specimen Type: SERUM No comment entered. Ordering Provider: MIYA LAU Report Released Date/Time: Feb 04, 2023 02:43 PM Reporting Lab: [facility] [place] [facility] [address] [facility] [address] Performing Lab: [facility] [place] [facility] [address] [facility] [address] TSH 1.13 u[IU]/mL 0.35-5.00 Mar 04, 2023 08:57 AM [facility] CBC AND DIFF (AUTO) Specimen Type: BLOOD No comment entered. Ordering Provider: MIYA LAU Report Released Date/Time: Feb 04, 2023 02:43 PM Reporting Lab: [facility] [address] [facility] [address] Performing Lab: [facility] [address] [address] WBC 5.82 10*3/uL 4.50-11.00 RBC 5.29 10*6/uL 4.23-5.66 HGB 16.4 g/dL 12.8-17 HCT 49.9 39.2-50.4 MCV 94.3 fL 82-99 MCHC 32.9 g/dL 30.8-35.1 PLT 248 10*3/uL 140-360 RDW-CV 13.6 12.0-16.0 [place], Abs 1.09 10*3/uL 0.30-1.10 MCH 31.0 pg 26.2-32.6 Neut % 57.3 43.7-75.8 Lymph % 19.9 14.0-42.3 [place] % 18.7 H 5.1-13.7 Eos % 3.3 [...] AM 132/74 [facility] [place] [facility] Mar 10, 2023 08:13 AM 140/78 [facility] [place] [facility] Mar 10, 2023 08:07 AM 97.1 84 16 96 231 32 [facility] [place] [facility] Social History: Smoking Status (Most current) and Tobacco Use (All prior to encounter date) This section includes the most current, and the historical, smoking and tobacco- related health factors from the [place] facility where the Encounter took place. Current Smoking Status This section includes the most current smoking, or tobacco-related health factor, from the [place] facility where the Encounter took place. Date/Time Current Smoking Status Comment Facil ity June 17, 2022 01:00 PM VA-TOBACCO NEVER USED [facility] [place] [facility] Tobacco Use History This section includes a history of the smoking, or tobacco-related health factors, that were collected on or before the date of the Encounter. The data comes from the [place] facility where the Encounter took place. Date/Time Smoking Status/Tobacco Use Comment F acility Jul 16, 2021 01:00 PM VA-TOBACCO NEVER USED [facility] [place] [facility] July 03, 2020 01:00 PM VA-TOBACCO NEVER USED [facility] [place] [facility] Jul 11, 2019 02:57 PM VA-TOBACCO NEVER USED [facility] [place] [facility] Jan 14, 2019 08:50 AM VA-TOBACCO NEVER USED [facility] [place] [facility] Mar 04, 2018 01:20 PM VA-TOBACCO NEVER USED [facility] [place] [facility] May 27, 2017 11:01 AM LIFETIME NON-TOBACCO USER [facility] [place] [facility] May 20, 2016 10:51 AM LIFETIME NON-TOBACCO USER [facility] [place] [facility] May 03, 2015 01:13 PM LIFETIME NON-TOBACCO USER [facility] [place] [facility] Advance Directives: All historical and current Section Date Range: From patient's date of to the date document was created. This section includes ALL of a patient's completed or amended [place] Advance and Rescinded Directives. The entries below indicate that a directive exists for the patient, but an actual copy is not included with this document. The data comes from all [place] facilities. Date Advance Directives Provider Source Nov 08, 2019 ADVANCE DIRECTIVE MIGDALIA MILES [facility] [place] [facility] Apr 14, 2019 ADVANCE DIRECTIVE RAFAL BULLARD [place] [facility] Encounter Notes: All associated encounter notes This section contains the clinical notes associated to the Encounter. Date/Time Encounter Note(s) Provider Source Mar 10, 2023 01:07 PM TELEHEALTH NOTE: LOCAL TITLE: [facility] VIDEO CONNECT PSYCHOLOGY NOTE STANDARD TITLE: TELEHEALTH NOTE DATE OF NOTE: MAR 10, 2023@13:07 ENTRY DATE: MAR 10, 2023@13:07:21 AUTHOR: NATHAN KIRK COSIGNER: URGENCY: STATUS: COMPLETED [facility] Video Connect (VVC) Standard Documentation VVC Clinician Resources Only: E911 (Emergency Call Relay Center): [phone] [facility] Crisis Line - 988 then press #1. [facility] Suicide Coordinator [phone], Ext. [phone]; Back-up Ext. [phone] [place] Police, [place] JOSHUA [phone] Introduction: Visit is being conducted by [place] arGEN-X. [place] identified with 2 identifiers: [X] Full Name [X] Date of [ ] [place] ID Card Emergency Plan: [place] confirmed and/or provided the following information in case of emergency or technology failure. PATIENT PHONE - PHONE NUMBER [CELLULAR] - Is patient phone number correct, if not, enter below: [place]'s phone number: PRASANTH GONZALES [address], [place], [address] [place]'s present location and address for appointment: [address] [place] [address] 's emergency contact name and phone number: Layla Jung reported that location is private and safe: Yes Informed Consent: [place] informed of the risks and benefits of Telehealth video care. [place] has the right to refuse video services. If refuses video visit, a [id number] visit will be scheduled. verbalized consent for this video visit: Yes [place] provided consent for any other persons present for visit: N/A If yes, who and relationship to patient: Secure visit: Visit was locked for security and privacy: Yes -- INFORMED CONSENT: Previously reviewed rights and limits of confidentiality, mandatory reporting situations, duty to warn and protect, Daniels Warning, (if treatment team finds patient to be an acute danger to themself or others, that. this information could be relayed to a court of law and presented to a health researcher), and [facility] access for active-duty service members. Provided Suicide Prevention Hotline number, and other contact numbers as necessary. VISIT DURATION: 48 Minutes DIAGNOSES: PTSD [employer] STATEMENT OF GOALS/CONCERNS: Reduce irritability, avoidance, work on current challenges (including medical issues), relationship issues, increase. meaningful activities and remain connected with people he is close to. SESSION FOCUS: Session focused on anxiety around [place]'s current medical issues, recent. activities, and coping skills. Art reported preparing for knee replacement surgery on Thursday and stated he will be relieved when it's over. He also detialed other medical challenges, and the process of assessing for an accurate diagnosis of some of them. Art shared his plan for self-care as he recovers from the surgery next week. He stated once he is fully recovered, he will hire someone to work with him on his home projects he needs to catch up on as he recognizes that doing them himself is not a good idea. Art also shared that his is turning 79 years old and that he is having a libertarian for her at a nice restauruant. He expressed looking foward to seeing family together for the event. Discussed other actiivities Art would like to engage in once he recovers from his surgery, including, returning to cheondoism, and spending time at his cabin in [place]. Art reported no problematic syptoms, otherwise, and that he looks forward to enjoying a life that is not filled with medical issues. Will revisit goals for therapy next session. INTERVENTIONS: Psychotherapeutic Interventions: Increase meaningful activities, focus [...] PLAN FOR FOLLOW-UP: Next session planned for: 03/17/22 at 1:00pm /rosio/ NATHAN KIRK, Ph.D Clinical Psychologist Signed: 03/13/2023 22:25 NATHAN KIRK [facility]
--- OUTSIDE RECORDS SUMMARY | 2024-02-16 09:06 | XMS_ITS | Encounter Summary ---
Author Name [facility] [place] Organization [facility] [place] Address [address] [place] [address] Care Team Providers Care Contract Runner Name Role Phone SUBHA VELAZQUEZ Primary Care [...] Relationship to Policy Bryson GREGORY PUGA-WN R [place] SPECIAL CLASS GREGORY DIOP Sep 15, 2011 GREGORY PUGA [id number] PAULA FENG [facility] Aug 09, 2017 [id number] PAULA FENG [facility] SUPPLEMEN MARIA [facility]LENA [facility] Aug 09, 2017 [id number] [phone] PAULA FENG PATIENT MEDICARE (WNR) MEDICARE (M) PART A Nov 10, 2019 PART A [id number] PAULA FENG PATIENT MEDICARE (WNR) MEDICARE (M) PART B Apr 09, 2010 PART B [id number] PAULA FENG PATIENT MEDICARE (WNR) MEDICARE (M) PART B Apr 09, 2010 PART B [id number] [phone] PAULA FENG PATIENT MEDICARE (WNR) MEDICARE (M) PART B Apr 09, 2010 PART B [id number] [phone] PAULA FENG PATIENT MEDICARE (WNR) MEDICARE (M) PART A Nov 09, 2009 PART A [id number] PAULA FENG PATIENT MEDICARE (WNR) MEDICARE (M) PART A Nov 09, 2009 PART A [id number] PAULA FENG PATIENT Selected Encounter This section includes the information on record at [place] for the Encounter. Date/Time Encounter Type Encounter Description Reason Provider Source Mar 24, 2023 01:00 PM PSYTX W PT 45 [facility] - IND ICD-10-CM F43.10 Post-traumatic stress disorder, unspecified NATHAN KIRK Mikhail Encounter Template Text not used by ME Assessments - Encounter Diagnoses This section includes the primary and secondary diagnoses documented for the Encounter. Date/Time Primary/Secondary Diagnosis Diagnosis Name Provider Source Mar 26, 2023 09:17 PM PRIMARY Post-traumatic stress disorder, unspecified [facility]IRK [facility] Plan of Treatment: Future Appointments (+ 6 months) and Future Tests (+/- 45 days) The Plan of Treatment section includes future care activities for the patient from all [place] treatmentfacilities. This section includes future appointments and future orders which are active, pending or scheduled. Future Appointments This section includes appointments that were scheduled to occur 6 months from the date of the Encounter, up to a maximum of 20 appointments. The data comes from all [place] treatment facilities. Appointment Date/Time Appointment Type Appointme nt Facility Name Apr 02, 2023 03:00 PM AMBULATORY - REHAB MEDICIN E [facility] [place] [facility] Apr 07, 2023 01:00 PM AMBULATORY - PSYCHIATRY [facility] [place] [facility] Apr 17, 2023 11:00 AM AMBULATORY - MEDICINE [facility] Apr 21, 2023 09:30 AM AMBULATORY - MEDICINE [facility] [place] [facility] Apr 22, 2023 08:30 AM AMBULATORY - [...] AMBULATORY - PSYCHIATRY [facility] [place] [facility] Aug 11, 2023 09:00 AM AMBULATORY - MEDICINE [facility] [place] [facility] Lab Results: +/- 30 days of the encounter This section includes the Chemistry and Hematology Lab Results on record with ME for the patient. Radiology Reports and Pathology [...] analytical performance characteristics have been determined by [facility] [place], [place]. It has not been cleared or approved by the U.S. Food and Drug Administration. This assay has been validated pursuant to the CLIA regulations and is used for clinical purposes. Test Performed by [facility], [facility], [address] [place], [place] Chris Alba M.D., Ph.D., Director of Laboratories , CLIA [id number] TEST PERFORMED AT: , Ordering Provider: MIYA LAU Report Released Date/Time: Feb 04, 2023 02:43 PM Reporting Lab: [address] [address] Performing Lab: [facility] [address] [address] VITAMIN B-1 (THIAMINE)-(Q U) 8 nmol/L 8-Mar 04, 2023 08:57 AM [facility] SYPHILIS ABS W/RFLX Specimen Type: SERUM Comment: No laboratory evidence of syphilis infection. If recent exposure is suspected, re-draw sample in 2-4 weeks and repeat algorithm. Testing performed by T. pallidum specific immunoassay. Ordering Provider: MIYA LAU Report Released Date/Time: Feb 04, 2023 02:43 PM Reporting Lab: [address] [address] Performing Lab: [facility] [address] [facility] [address] SYPHILIS ABS W/RFLX Non Reactive Non Reactive Mar 04, 2023 08:57 AM [facility] BASIC METABOLIC PANEL (fasting) Specimen Type: SERUM No comment entered. Ordering Provider: MIYA LAU Report Released Date/Time: Feb 04, 2023 02:43 PM Reporting Lab: [address] [address] Performing Lab: [facility] [address] [facility] [address] UREA NITROGEN 22 mg/dL 7-25 GLUCOSE 84 mg/dL 65-100 SODIUM 140 mmol/L 135-145 POTASSIUM 4.6 mmol/L 3.5-5.0 CHLORIDE 104 mmol/L 100-110 CO2 25 meq/L 20-30 CREATININE, Serum 1.01 mg/dL 0.50-1.40 eGFR(CKD-EPI 2020) 76 mL/min >60 Mar 04, 2023 08:57 AM [facility] LIVER FUNCTION Specimen Type: SERUM No comment entered. Ordering Provider: MIYA LAU Report Released Date/Time: Feb 04, 2023 02:43 PM Reporting Lab: [address] [address] Performing Lab: [address] [address] PROTEIN,TOTAL 7.3 g/dL 6.0-8.3 ALBUMIN 4.0 g/dL 3.5-5.0 ALKALINE PHOSPHATASE 109 U/L 40-150 AST 19 U/L 5-34 ALT 27 U/L BILIRUBIN, TOTAL 1.0 mg/dL 0.2-1.2 Mar 04, 2023 08:57 AM [facility] VITAMIN B12 Specimen Type: SERUM No comment entered. Ordering Provider: MIYA LAU Report Released Date/Time: Feb 04, 2023 02:43 PM Reporting [facility]: [facility] [address] Performing Lab: [address] [address] VITAMIN B12 366 pg/mL 200-900 Mar 04, 2023 08:57 AM [facility] LIPID PANEL FASTING Specimen Type: SERUM No comment entered. Ordering Provider: MIYA LAU Report Released Date/Time: Feb 04, 2023 02:43 PM Reporting Lab: [address] [address] Performing Lab: [facility] [place] [facility] [address] [facility] [address] CHOLESTEROL 194 mg/dL TRIGLYCERIDE 126 mg/dL 0-150 LDL calculated 126 mg/dL 0-129 CHOL/HDL 4.5 HDL CHOLESTEROL 43 mg/dL 40-60 Mar 04, 2023 08:57 AM [facility] [place] [facility] VITAMIN D (25-[place]) Specimen Type: SERUM No comment entered. Ordering Provider: MIYA LAU Report Released Date/Time: Feb 04, 2023 02:43 PM Reporting Lab: [facility] [place] [facility] [address] [facility] [address] Performing Lab: [facility] [place] [facility] [address] [facility] [address] VITAMIN D (25-OH) 42 ng/mL 20-50 Mar 04, 2023 08:57 AM [facility] MAGNESIUM Specimen Type: SERUM No comment entered. Ordering Provider: MIYA LAU Report Released Date/Time: Feb 04, 2023 02:43 PM Reporting Lab: [facility] [place] [facility] [address] [facility] [address] Performing Lab: [facility] [place] [facility] [address] [facility] [address] MAGNESIUM 2.1 mg/dL 1.6-2.6 Mar 04, 2023 08:57 AM [facility] TSH Specimen Type: SERUM No comment entered. Ordering Provider: MIYA LAU Report Released Date/Time: Feb 04, 2023 02:43 PM Reporting Lab: [facility] [place] [facility] [address] [facility] [address] Performing Lab: [facility] [place] [facility] [address] [facility] [address] TSH 1.13 u[IU]/mL 0.35-5.00 Mar 04, 2023 08:57 AM [facility] CALCIUM Specimen Type: SERUM No comment entered. Ordering Provider: MIYA LAU Report Released Date/Time: Feb 04, 2023 02:43 PM Reporting Lab: [facility] [place] [facility] [address] [facility] [address] Per[facility]: [facility] [address] [facility] [address] CALCIUM 9.0 mg/dL 8.5-10.2 Mar 04, 2023 08:57 AM [facility] CBC AND DIFF (AUTO) Specimen Type: BLOOD No comment entered. Ordering Provider: MIYA LAU Report Released Date/Time: Feb 04, 2023 02:43 PM Reporting Lab: [facility] [address] [facility] [address] Performing Lab: [facility] [address] [facility] [address] WBC 5.82 10*3/uL 4.50-11.00 RBC 5.29 10*6/uL 4.23-5.66 HGB 16.4 g/dL 12.8-17 HCT 49.9 39.2-50.4 MCV 94.3 fL 82-99 MCHC 32.9 g/dL 30.8-35.1 PLT 248 10*3/uL 140-360 RDW-CV 13.6 12.0-16.0 [place], Abs 1.09 10*3/uL 0.30-1.10 MCH 31.0 pg 26.2-32.6 Neut % 57.3 43.7-75.8 Lymph % 19.9 14.0-42.3 [place] % 18.7 H 5.1-13.7 Eos % 3.3 [...] and tobacco- related health factors from the [place] facility where the Encounter took place. Current Smoking Status This section includes the most current smoking, or tobacco-related health factor, from the [place] facility where the Encounter took place. Date/Time Current Smoking Status Comment Louisa koenig June 17, 2022 01:00 PM VA-TOBACCO NEVER USED [facility] [place] [facility] Tobacco Use History This section includes a history of the smoking, or tobacco-related health factors, that were collected on or before the date of the Encounter. The data comes from the ME facility where the Encounter took place. Date/Time Smoking Status/Tobacco Use Comment F acility Jul 16, 2021 01:00 PM VA-TOBACCO NEVER USED [facility] [place] [facility] July 03, 2020 01:00 PM VA-TOBACCO NEVER USED [facility] [place] [facility] Jul 11, 2019 02:57 PM VA-TOBACCO NEVER USED [facility] [place] [facility] Jan 14, 2019 08:50 AM VA-TOBACCO NEVER USED [facility] [place] [facility] Mar 04, 2018 01:20 PM VA-TOBACCO NEVER USED [facility] [place] [facility] May 27, 2017 11:01 AM LIFETIME NON-TOBACCO USER [facility] [place] [facility] May 20, 2016 10:51 AM LIFETIME NON-TOBACCO USER [facility] [place] [facility] May 03, 2015 01:13 PM LIFETIME NON-TOBACCO USER [facility] [place] [facility] Advance Directives: All historical and current Section Date Range: From patient's date of to the date document was created. This section includes ALL of a patient's completed or amended [place] Advance and Rescinded Directives. The entries below indicate that a directive exists for the patient, but an actual copy is not included with this document. The data comes from all [place] facilities. Date Advance Directives Provider Source Nov 08, 2019 ADVANCE DIRECTIVE MIGDALIA MILES [facility] [place] [facility] Apr 14, 2019 ADVANCE DIRECTIVE RAFAL BULLARD [facility] [place] [facility] Encounter Notes: All associated encounter notes This section contains the clinical notes associated to the Encounter. Date/Time Encounter Note(s) Provider Source Mar 24, 2023 01:03 PM TELEHEALTH NOTE: LOCAL TITLE: [facility] VIDEO CONNECT PSYCHOLOGY NOTE STANDARD TITLE: TELEHEALTH NOTE DATE OF NOTE: MAR 24, 2023@13:03 ENTRY DATE: MAR 24, 2023@13:03:29 AUTHOR: NATHAN KIRK COSIGNER: URGENCY: STATUS: COMPLETED VA Video Connect (VVC) Standard Documentation VVC Clinician Resources Only: E911 (Emergency Call Relay Center): [phone] National Veterans Crisis Line - 988 then press #1. [facility] Suicide Coordinator [phone], Ext. [phone]; Back-up Ext. [phone] [place] Police, [place], [place] [phone] Introduction: Visit is being conducted by [employer]. identified with 2 identifiers: [X] Full Name [X] Date of [ ] VA ID Card Emergency Plan: confirmed and/or provided the following information in case of emergency or technology failure. PATIENT PHONE - PHONE NUMBER [CELLULAR] - Is patient phone number correct, if not, enter below: Slater's phone number: PRASANTH FENG [address], [place], [address] Slater's present location and address for appointment: [address] [place] [address]. [place] [address] 's emergency contact name and phone number: Layla Feng reported that location is private and safe: Yes Informed Consent: Slater informed of the risks and benefits of Telehealth video care. has the right to refuse video services. If refuses video visit, a kute-lw-emec visit will be scheduled. 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 Provided Suicide Prevention Hotline number, and other contact numbers as necessary. VISIT DURATION: 46 Minutes DIAGNOSES: PTSD [employer]ER[employer] STATEMENT OF GOALS/CONCERNS: Reduce irritability, avoidance, work on current challenges (including medical issues), relationship issues, increase. meaningful activities and remain connected with people he is close to. SESSION FOCUS: Session focused on Art's anxiety regarding multiple medical issues. He shared that he recently had knee replacement surgery and that the pain has been keeping him up at night. He shared that his hid his pain medication, stating that he was tough and could do with just Tylenol. Art shared that he normally uses only Tylenol and that it has worked well for him in the past (including his hip replacement recovery). However, he stated that following his knee replacement surgery, his surgeon told him he would probably need medication during recovery. Art shared that he will make sure he has his medication, particularly at night, to help him sleep. 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 He shared that the MRI report indicated what was found, however, expressed that he wants to learn more about what it means for him. Art reported that he meets with his Oncologist on 04/09 and will share his concerns with him. He also stated that he will ask his PCP to put in a referral to meet with a Neurologist to address his concerns. Art also shared that his 's 79th birthday green party went well and that he was able to arrange for some of her high school friends to join the green party, as a surprise for her. He shared that he continues to maintain connections with friends and family members, works on projects around the house, and goes out to dinner on occasion. However, he reported that his post-surgery recovery has slowed things down a little, but expects to be back to his daily routine in the near future. Art expressed that the session was helpful in addressing his anxiety around his medical challenges. INTERVENTIONS: Psychotherapeutic Interventions: Increase meaningful activities, focus [...] PLAN FOR FOLLOW-UP: Next session planned for: 04/07/23 at 1:00pm /rosio/ NATHAN KIRK, Ph.D Clinical Psychologist Signed: 03/26/2023 21:17 NATHAN KIRK [facility]
--- OUTSIDE RECORDS SUMMARY | 2024-02-16 09:06 | XMS_ITS | Encounter Summary ---
Author Name [facility] [place] [facility] [place] Organization [facility] [place] [facility] [place] Address [address] [place] [address] Care Team Providers Care Coater Associate Name Role Phone SUBHA VELAZQUEZ Primary Care [...] Relationship to Policy Bryson GREGORY PUGA-WN R DC SPECIAL CLASS GREGORY DIOP Sep 15, 2011 GREGORY PUGA [id number] PAULA GONZALES PATIENT [facility] MEDICARE SUPPLEMEN [facility] Aug 09, 2017 [id number] PAULA GONZALES PATIENT [facility] MEDICARE SUPPLEMEN [facility] Aug 09, 2017 [id number] PAULA GONZALES PATIENT MEDICARE (WNR) MEDICARE (M) PART A Nov 10, 2019 PART A [id number] PAULA GONZALES PATIENT MEDICARE (WNR) MEDICARE (M) PART B Apr 09, 2010 PART B [id number] PAULA GONZALES PATIENT MEDICARE (WNR) MEDICARE (M) PART B Apr 09, 2010 PART B [id number] PAULA GONZALES PATIENT MEDICARE (WNR) MEDICARE (M) PART B Apr 09, 2010 PART B [id number] PAULA GONZALES PATIENT MEDICARE (WNR) MEDICARE (M) PART A Nov 09, 2009 PART A [id number] PAULA GONZALES PATIENT MEDICARE (WNR) MEDICARE (M) PART A Nov 09, 2009 PART A [id number] PAULA GONZALES PATIENT Selected Encounter This section includes the information on record at [place] for the Encounter. Date/Time Encounter Type Encounter Description Reason Provider Source Apr 22, 2023 10:44 AM OFFICE O/P EST MOD 30 MIN CARDIAC ECHO ICD-10-CM G47.33 Obstructive sleep apnea (adult) (pediatric) ROCIO STORY Encounter Template Text not used by [place] Assessments - Encounter Diagnoses This section includes the primary and secondary diagnoses documented for the Encounter. Date/Time Primary/Secondary Diagnosis Diagnosis Name Provider Source Apr 28, 2023 11:27 AM PRIMARY Obstructive sleep apnea (adult) (pediatric) JAZIEL BURRELL [facility] Plan of Treatment: Future Appointments (+ 6 months) and Future Tests (+/- 45 days) The Plan of Treatment section includes future care activities for the patient from all [place] treatmentfacilities. This section includes future appointments and future orders which are active, pending or scheduled. Future Appointments This section includes appointments that were scheduled to occur 6 months from the date of the Encounter, up to a maximum of 20 appointments. The data comes from all [place] treatment facilities. Appointment Date/Time Appointment Type Appointme nt Facility Name Apr 23, 2023 08:00 AM AMBULATORY - MEDICINE [place] [facility] [place] [facility] May 06, 2023 12:30 PM AMBULATORY - NONE [place] [facility] [place] [facility] May 07, 2023 03:30 PM AMBULATORY - MEDICINE [place] [facility] [place] [facility] May 12, 2023 01:00 PM AMBULATORY - PSYCHIATRY [place] [facility] [place] [facility] May 19, 2023 01:00 PM AMBULATORY - PSYCHIATRY [place] [facility] [place] [facility] May 21, 2023 02:00 PM AMBULATORY - MEDICINE [place] [facility] [place] [facility] May 26, 2023 01:00 PM AMBULATORY - PSYCHIATRY [place] [facility] [place] [facility] Jun 02, 2023 01:00 PM AMBULATORY - PSYCHIATRY [place] [facility] [place] [facility] Jun 05, 2023 09:00 AM AMBULATORY - NONE [place] [facility] [place] [facility] Jun 09, 2023 09:30 AM AMBULATORY - MEDICINE [place] [facility] [place] [facility] Jun 09, 2023 09:31 AM AMBULATORY - [place]ICINE [place] [facility] June 30, 2023 01:00 PM AMBULATORY - PSYCHIATRY [place] [facility] [place] [facility] Jul 28, 2023 01:00 PM AMBULATORY - PSYCHIATRY [place] [facility] [place] [facility] Aug 04, 2023 01:00 PM AMBULATORY - PSYCHIATRY [place] [facility] [place] [facility] Aug 11, 2023 09:00 AM AMBULATORY - MEDICINE [place] [facility] [place] [facility] Aug 11, 2023 01:00 PM AMBULATORY - PSYCHIATRY [facility] [place] [place] [facility] Aug 17, 2023 10:00 AM AMBULATORY - REHAB MEDICIN E [place] [facility] [facility] Sep 01, 2023 01:00 PM AMBULATORY - PSYCHIATRY [place] [facility] [place] [place] [facility] Sep 08, 2023 01:00 PM AMBULATORY - PSYCHIATRY [place] [facility] [place] [facility] Sep 15, 2023 01:00 PM AMBULATORY - PSYCHIATRY [place] [facility] [place] [facility] Active, Pending, and Scheduled Orders This section includes a listing of several types of active, pending, and scheduled orders, including clinic medications orders, diagnostic test orders, procedure orders and consult orders; where the start date of the order is 45 days before the date of the Encounter or 45 days after the date of theEncounter. The data comes from all [place] treatment facilities. Test Date/Time Test Type Test Details Facility Name May 21, 2023 12:00 AM Laboratory - Chemi stry Order HCV RNA PCR PANEL(WHV) BLOOD (SST-GOLD) SERUM SP [facility] [place] [facility] Advance Directives: All historical and current Section Date Range: From patient's date of to the date document was created. This section includes ALL of a patient's completed or amended [place] Advance and Rescinded Directives. The entries below indicate that a directive exists for the patient, but an actual copy is not included with this document. The data comes from all [place] facilities. Date Advance Directives Provider Source Nov 08, 2019 ADVANCE DIRECTIVE MIGDALIA MILES [place] [facility] Apr 14, 2019 ADVANCE DIRECTIVE RAFAL BULLARD [place] [facility] Encounter Notes: All associated encounter notes This section contains the clinical notes associated to the Encounter. Date/Time Encounter Note(s) Provider Source Apr 22, 2023 10:44 AM MENTAL HEALTH CONS ULT: LOCAL TITLE: [facility] ([facility]) STANDARD TITLE: MENTAL HEALTH CONSULT DATE OF NOTE: APR 22, 2023@10:44 ENTRY DATE: APR 22, 2023@10:44:20 AUTHOR: JAYY FIGUEREDO EXP COSIGNER: URGENCY: STATUS: COMPLETED CL[facility] ([facility]) Has ADDENDA Remote echocardiogram read completed. Report available in [employer]. /rosio/ JAYY FIGUEREDO Signed: 04/22/2023 10:49 04/23/2023 ADDENDUM STATUS: COMPLETED copy/pasting report [facility] Study ID: [id number] Adult Transthoracic Echocardiogram Report Name: PRASANTH GONZALES Study Date: 04/22/2023 08:15 AM Patient Location: [address] ECHO SFT PT A : 1945 (M/d/yyyy) Gender: Male Age: 77 yrs Reason For Study: MART Ordering Physician: ANNIE CONRAD Referring Physician: ANNIE CONRAD Performed By: Mireya Ann Institution: [facility] Height: 71 in Weight: 231 lb MMode/2D Measurements & Calculations IVSd: 1.2 cm LVIDd: 5.3 cm LVIDs: 2.5 cm LVPWd: 1.1 cm LV mass(C)dI: 107.0 grams/m2 LA dimension: 3.3 cm LVOT diam: 2.0 cm Doppler Measurements & Calculations MV E/A: 0.83 Ao V2 max: 143.0 cm/sec Ao max P.2 mmHg Ao V2 mean: 93.9 cm/sec Ao mean P.0 mmHg Ao V2 VTI: 31.0 cm TANIA(I,D): 2.7 cm2 TANIA(V,D): 2.8 cm2 Procedure: LV V1 max: 126.0 cm/sec LV V1 VTI: 26.7 cm The indication for this study was appropriate by 2011 ASE/ACCF appropriate use criteria. 2-D echocardiogram with color flow, M-mode, and spectral Doppler. Left Ventricle: The left ventricle is normal in size. There is borderline concentric left ventricular hypertrophy. There is normal systolic function. The estimated LVEF is 65 %. Diastolic function: There is normal diastolic function. Right ventricle: The right ventricle is normal in size. There is normal systolic function. Atria/Interatrial Septum: The left atrium is normal in size. The right atrium is normal in size. Aortic Valve: The aortic valve is trileaflet with mild leaflet thickening. Great Vessels: Borderline dilated ascending aorta measuring 3.9cm in diameter. Mitral Valve: The mitral valve leaflets are grossly normal in structure without prolapse or stenosis. There is mild mitral regurgitation. Tricuspid Valve: The tricuspid valve is normal in structure and function. This velocity corresponds to an estimated pulmonary artery systolic pressure of 30-35 mm Hg plus RA pressure. Pulmonic Valve: The pulmonic valve is normal in structure and function. Pericardium/Pleura: There is no pericardial effusion. Miscellaneous: No prior study for comparison. Interpretation Summary 1. Normal left and right ventricular size with normal systolic function. LVEF 65%. 2. Normal diastolic function for age. 3. Aortic sclerosis with no aortic stenosis. Peak velocity of 1.4m/s. Mild mitral regurgitation. 4. Borderline dilated ascending aorta measuring 3.9cm in diameter. 5. No significant pericardial effusion. /rosio/ ROCIO STORY DO ATTENDING, CARDIOLOGY Signed: 04/23/2023 12:16 JAYY FIGUEREDO [facility]
--- OUTSIDE RECORDS SUMMARY | 2024-02-16 09:06 | XMS_ITS | Encounter Summary ---
Author Name [facility] [place] Organization [facility] [place] Address [address] [place] [address] Care Team Providers Care Escrow Representative Name Role Phone SUBHA VELAZQUEZ Primary Care [...] Relationship to Policy Bryson GREGORY PUGA-WN R DE SPECIAL CLASS GREGORY DIOP Sep 15, 2011 GREGORY PUGA [id number] [phone] PAULA FENG PATIENT [facility] MEDICARE [employer]LEMEN [facility] Aug 09, 2017 [id number] [phone] PALUA FENG PATIENT [facility] MEDICARE SUPPLEMEN [facility] Aug 09, 2017 [id number] [phone] PAULA FENG PATIENT MEDICARE (WNR) MEDICARE (M) PART A Nov 10, 2019 PART A [id number] PAULA FENG PATIENT MEDICARE (WNR) MEDICARE (M) PART B Apr 09, 2010 PART B [id number] PAULA FENG PATIENT MEDICARE (WNR) MEDICARE (M) PART B Apr 09, 2010 PART B [id number] [id number] PAULA FENG PATIENT MEDICARE (WNR) MEDICARE (M) PART B Apr 09, 2010 PART B [id number] PAULA FENG PATIENT MEDICARE (WNR) MEDICARE (M) PART A Nov 09, 2009 PART A [id number] [id number] PAULA FENG PATIENT MEDICARE (WNR) MEDICARE (M) PART A Nov 09, 2009 PART A [id number] 92A PAULA FENG PATIENT Selected Encounter This section includes the information on record at [place] for the Encounter. Date/Time Encounter Type Encounter Description Reason Provider Source Apr 17, 2023 11:00 AM OFFICE O/P EST MOD 30 MIN SLEEP MEDICINE ICD-10-CM G47.33 Obstructive sleep apnea (adult) (pediatric) MARVA DE LEON Mikhail Encounter Template Text not used by [place] Assessments - Encounter Diagnoses This section includes the primary and secondary diagnoses documented for the Encounter. Date/Time Primary/Secondary Diagnosis Diagnosis Name Provider Source May 20, 2023 12:13 PM PRIMARY Obstructive sleep apnea (adult) (pediatric) MARVA DE LEON [facility] Plan of Treatment: Future Appointments (+ 6 months) and Future Tests (+/- 45 days) The Plan of Treatment section includes future care activities for the patient from all [place] treatmentfacilities. This section includes future appointments and future orders which are active, pending or scheduled. Future Appointments This section includes appointments that were scheduled to occur 6 months from the date of the Encounter, up to a maximum of 20 appointments. The data comes from all [place] treatment facilities. Appointment Date/Time Appointment Type Appointme nt Facility Name Apr 21, 2023 09:30 AM AMBULATORY - MEDICINE [place] [facility] [place] [facility] Apr 22, 2023 08:30 AM AMBULATORY - NONE [facility] [place] [facility] Apr 23, 2023 08:00 AM AMBULATORY - MEDICINE [facility] [place] [facility] May 06, 2023 12:30 PM AMBULATORY - NONE [facility] [place] [facility] May 07, 2023 03:30 PM AMBULATORY - MEDICINE DE [facility] [place] [facility] May 12, 2023 01:00 PM AMBULATORY - PSYCHIATRY [place] [facility] [place] [facility] May 19, 2023 01:00 PM AMBULATORY - PSYCHIATRY [place] [facility] [place] [facility] May 21, 2023 02:00 PM AMBULATORY - MEDICINE [facility] [place] [facility] May 26, 2023 01:00 PM AMBULATORY - PSYCHIATRY [place] [facility] [place] [facility] Jun 02, 2023 01:00 PM AMBULATORY - PSYCHIATRY [facility] [place] [facility] Jun 05, 2023 09:00 AM AMBULATORY - NONE [place] [facility] [place] [facility] Jun 09, 2023 09:30 AM AMBULATORY - MEDICINE VA [facility] [place] [facility] Jun 09, 2023 09:31 AM AMBULATORY - MEDICINE [place] [facility] June 30, 2023 01:00 PM AMBULATORY - PSYCHIATRY [place] [facility] [place] [facility] Jul 28, 2023 01:00 PM AMBULATORY - PSYCHIATRY [place] [facility] [place] [facility] Aug 04, 2023 01:00 PM AMBULATORY - PSYCHIATRY [facility] [place] [facility] Aug 11, 2023 09:00 AM AMBULATORY - MEDICINE VA [facility] [place] [facility] Aug 11, 2023 01:00 PM AMBULATORY - PSYCHIATRY [facility] [place] [facility] Aug 17, 2023 10:00 AM AMBULATORY - REHAB MEDICIN E [facility] [place] [facility] Sep 01, 2023 01:00 PM AMBULATORY - PSYCHIATRY [facility] [place] [facility] Active, Pending, and Scheduled Orders This section includes a listing of several types of active, pending, and scheduled orders, including clinic medications orders, diagnostic test orders, procedure orders and consult orders; where the start date of the order is 45 days before the date of the Encounter or 45 days after the date of theEncounter. The data comes from all [place] treatment facilities. Test Date/Time Test Type Test Details Facility Name May 21, 2023 12:00 AM Laboratory - Chemi stry Order HCV RNA PCR PANEL(WHV) BLOOD (SST-GOLD) SERUM SP [facility] [place] [facility] Vital Signs: All taken on the encounter date This section contains inpatient and outpatient Vital Signs collected on the date of the Encounter. Date/Time Temperature Pulse Blood Pressure Respiratory Rate SP02 Pain Height Weight Body Mass Index Source Apr 17, 2023 11:04 AM 97.4 72 139/66 96 0 232.3 [facility] Advance Directives: All historical and current Section Date Range: From patient's date of to the date document was created. This section includes ALL of a patient's completed or amended [place] Advance and Rescinded Directives. The entries below indicate that a directive exists for the patient, but an actual copy is not included with this document. The data comes from all [place] facilities. Date Advance Directives Provider Source Nov 08, 2019 ADVANCE DIRECTIVE MIGDALIA MILES [facility] Apr 14, 2019 ADVANCE DIRECTIVE JUAN MIGUELRAFAL NOLASCOEST DE C [facility] Encounter Notes: All associated encounter notes This section contains the clinical notes associated to the Encounter. Date/Time Encounter Note(s) Provider Source Apr 17, 2023 12:20 PM SLEEP MEDICINE NOT E: LOCAL TITLE: SLEEP DISORDER FOLLOW-UP NOTE STANDARD TITLE: SLEEP MEDICINE NOTE DATE OF NOTE: APR 17, 2023@12:20 ENTRY DATE: APR 17, 2023@12:20:35 AUTHOR: MARVA DE LEON EXP COSIGNER: ANNIE CONRAD URGENCY: STATUS: COMPLETED SLEEP DISORDER FOLLOW-UP NOTE Has ADDENDA Mr. Feng is a 77 yo M with hx of bladder cancer (dx 2016, s/p chemo 2021, surgery 2022), COPD, PTSD. He was first diagnosed with MART in 2013 in [place], [place]. No records available to us for review. He tried CPAP but could not tolerate it. In around 2015 he had surgery for a deviated nasal septum. Then he got an oral device which initially helped his MART. However, he had to get a new bridge at some point, after that the oral device no longer fit. He got multiple new ones but they were not comfortable nor helped his MART significantly. He was first seen at our clinic in Oct 2022. He was curious about the Inspire device. But his sleep Study from 07/01 in [place] showed moderate obstructive sleep apnea with significant central apneic events. So given his central apneas he was not a candidate for Inspire. He was amenable to re-try CPAP therapy so a titration study was done in Jan 2023 which showed reduced overall sleep time with low total sleep time on each setting tried which limits the results of this study. Titration: using ASV at a setting of EPAP 7 cmH2O, max pressure support of 15 cmH2O and min pressure support of 3 cmH2O, the AHI was 0.0/hr during 17.0 minutes of sleep. The minimum oxygen saturation was 90% minutes on this pressure. PAP was administered using a LARGE RES MED AIR FIT F 20 FFM mask. Treatment is indicated with ASV at a setting of EPAP 7 cmH2O, max pressure support of 15 cmH2O and min pressure support of 3 cmH2O. he currently does not have a machine. According to previous notes, he has no history of heart problems, reports a previously normal ECHO a number of years ago. but he does not recall that. The bedtime is 10 PM Wake up time is 5 am It takes few minutes to fall asleep. He awakens 4 times per night for going to the bathroom. It takes him few minutes to fall back asleep. He does not feel refreshed when he awakens. He has a bedpartner. His denies snoring. but was noticed to stop breathing He does not wake up from sleep gasping for air There is no choking or shortness of breath He does not wake up with a dry mouth. He endorses AM headache. He does complain of excessive daytime sleepiness. His ESS score today is 16 He takes 1-2 naps during the day. each for 30 minutes. Usually in the afternoon. He falls asleep while watching TV or reading. He denies falling asleep while driving and has never been in an accident because of drowsy driving. He denies cataplexy, hypnagogic or hypnopompic hallucination or sleep paralysis. There is no history of head trauma. He does report leg discomfort described as tingling. It is usually not associated with an urge to move. These symptoms occur all day. Not alleviated by movement. They do not prevent him from falling asleep. He denies sleep walking or nightmares and has never acted out a dream. He drinks 2 cups of coffee in the morning. He does not drink EtOH and does not smoke. He is retired and spends most of his days at home. He lives with his . he has 3 children. ROS: Denies F/C/N/V/CP/SOB/weakness arms or legs/change in urinary or bowel habits, headaches, diplopia, rash Active Outpatient Medications (excluding Supplies): No Medications Found Allergies: No Allergy Assessment Sleep study Jan 24 2023 IMPRESSION: 1. Study had reduced overall sleep time with low total sleep time on each setting tried which limits the results of this study. 2. Titration: Using ASV at a setting of EPAP 7 cmH2O, max pressure support of 15 cmH2O and min pressure support of 3 cmH2O, the AHI was 0.0/hr during 17.0 minutes of sleep. The minimum oxygen saturation was 90% minutes on this pressure. PAP was administered using a LARGE RES MED AIR FIT F 20 FFM mask. 3. History of Obstructive and Central Sleep Apnea Syndrome from a previous sleep study. RECOMMENDATIONS & FOLLOW UP: Treatment is indicated with ASV at a setting of EPAP 7 cmH2O, max pressure support of 15 cmH2O and min pressure support of 3 cmH2O. We will schedule a sleep clinic visit with the patient so that the sleep study results and treatment implications can be discussed. At this clinic visit, if the patient is agreeable, CPAP will be prescribed and the patient will be followed. PE: Vitals: Temp:97.4 HR:72 BP:139/65 Sat:96% gen: NAD head: NC, AT Eyes: no icteric sclera ENT: Normal facial profile, normal bite; malampati class III, patent nasal passages without nasal septal deviation Neck: supple lungs: Good air entry bilaterally, no added sounds Heart: RHR, no murmur abd: soft, nontender extr: no edema skin: no rash neuro: awake, alert, strength intact, gait intact Impression: Mr. Feng is a 77 yo M with hx of bladder cancer (dx 2016, s/p chemo 2021, surgery 2022), COPD, PTSD. He was first diagnosed with MART in 2013 in [place], [place]. He is S/P nasal septum deviation surgery. He was intolerant to CPAP and also tried oral appliance without much success. He was considering Inspire but last sleep study showed increased central apneas, so he may not be a candidate. He is now willing to re-try CPAP and had a titration study in Jan which showed good response to ASV. He has not had an echocardiogrpahy and since he has several risk factors ,we would like to obtian an echo before starting ASV. Plan: Echo has been ordered at [facility]. We will prescribe ASV (after the echo) at the recommended settings: EPAP 7 cmH2O, max pressure support of 15 cmH2O and min pressure support of 3 cmH2O. We will see him back at [facility] aftert the results of the above. /rosio/ MARVA DE LEON MD SLEEP FELLOW Signed: 04/17/2023 12:21 /rosio/ ANNIE CONRAD MD ATTENDING Cosigned: 04/17/2023 16:46 04/17/2023 ADDENDUM STATUS: COMPLETED I have reviewed the history and physical findings with the resident/fellow. I agree with the above note and the plan which I helped formulate. The patient is from [facility], so moving forward, I have requested follow up in my [facility] telemedicine clinic. /rosio/ ANNIE CONRAD MD ATTENDING Signed: 04/17/2023 16:47 04/28/2023 ADDENDUM STATUS: COMPLETED TTE 04/22/23 reviewed Normal LVEF 65% RV nl size and function mild MR borderline dilated ascending aorta Impression: Given the normal EF, I will order the patient an ASV device through [facility]. Patient has been called with the results. /rosio/ ANNIE CONRAD MD ATTENDING Signed: 04/28/2023 09:16 MARVA DE LEON [facility]
--- OUTSIDE RECORDS SUMMARY | 2024-02-16 09:07 | XMS_ITS ---
Author Name [facility] Organization [facility] [place] Address [address] [place] [address] Care Team Providers Care Training Facilitator Name Role Phone SUBHA VELAZQUEZ Primary Care [...] Relationship to Policy Bryson GREGORY PUGA-WN R [place] SPECIAL CLASS GREGORY DIOP Sep 15, 2011 GREGORY PUGA [id number] PAULA GONZALES PATIENT [facility]ALTH [facility] [employer] [facility] Aug 09, 2017 [id number] PAULA GONZALES PATIENT [facility] [employer]MEN [facility] SUPP PL Aug 09, 2017 [id number] PAULA GONZALES PATIENT MEDICARE (WNR) MEDICARE (M) PART A Nov 10, 2019 PART A [id number] PAULA GONZALES PATIENT MEDICARE (WNR) MEDICARE (M) PART B Apr 09, 2010 PART B [id number] PAULA GONZALES PATIENT MEDICARE (WNR) MEDICARE (M) PART B Apr 09, 2010 PART B [id number] PAULA GONZALES PATIENT MEDICARE (WNR) MEDICARE (M) PART B Apr 09, 2010 PART B [id number] [phone] PAULA GONZALES PATIENT MEDICARE (WNR) MEDICARE (M) PART A Nov 09, 2009 PART A [id number] PAULA GONZALES PATIENT MEDICARE (WNR) MEDICARE (M) PART A Nov 09, 2009 PART A [id number] [phone] PAULA GONZALES PATIENT Selected Encounter This section includes the information on record at OR for the Encounter. Date/Time Encounter Type Encounter Description Reason Pro vider Source Apr 27, 2023 07:59 AM Outpatient Encounter COMMUNITY CARE CONSULT IHE Encounter Template Text not used by OR Plan of Treatment: Future Appointments (+ 6 months) and Future Tests (+/- 45 days) The Plan of Treatment section includes future care activities for the [facility] This section includes future appointments and future orders which are active, pending or scheduled. Future Appointments This section includes appointments that were scheduled to occur 6 months from the date of the Encounter, up to a maximum of 20 appointments. The data comes from all [place] treatment facilities. Appointment Date/Time Appointment Type Appointme nt Facility Name May 06, 2023 12:30 PM AMBULATORY - NONE [place] [facility] [place] [facility] May 07, 2023 03:30 PM AMBULATORY - MEDICINE [place] [facility] [place] [facility] May 12, 2023 01:00 PM AMBULATORY - PSYCHIATRY [place] [facility] [place] [facility] May 19, 2023 01:00 PM AMBULATORY - PSYCHIATRY [place] [facility] [place] [facility] May 21, 2023 02:00 PM AMBULATORY - MEDICINE [place] [facility] [place] [facility] May 26, 2023 01:00 PM AMBULATORY - PSYCHIATRY [place] [facility] [place] [facility] Jun 02, 2023 01:00 PM AMBULATORY - PSYCHIATRY [place] [facility] [place] [facility] Jun 05, 2023 09:00 AM AMBULATORY - NONE [place] [facility] [place] [facility] Jun 09, 2023 09:30 AM AMBULATORY - MEDICINE [place] [facility] [place] [facility] Jun 09, 2023 09:31 AM AM[place]ORY - [place]IC[place] [facility] June 30, 2023 01:00 PM AMBULATORY - PSYCHIATRY [facility] [place] [facility] Jul 28, 2023 01:00 PM AMBULATORY - PSYCHIATRY [facility] [place] [facility] Aug 04, 2023 01:00 PM AMBULATORY - PSYCHIATRY [facility] [place] [facility] Aug 11, 2023 09:00 AM AMBULATORY - MEDICINE [facility] [place] [facility] Aug 11, 2023 01:00 PM AMBULATORY - PSYCHIATRY [facility] [place] [facility] Aug 17, 2023 10:00 AM AMBULATORY - REHAB MEDICIN E [facility] [place] [facility] Sep 01, 2023 01:00 PM AMBULATORY - PSYCHIATRY [facility] [place] [facility] Sep 08, 2023 01:00 PM AMBULATORY - PSYCHIATRY [place] [facility] [place] [facility] Sep 15, 2023 01:00 PM AMBULATORY - PSYCHIATRY [facility] [place] [facility] Sep 22, 2023 01:00 PM AMBULATORY - PSYCHIATRY [place] [facility] [place] [facility] Active, Pending, and Scheduled Orders This section includes a listing of several types of active, pending, and scheduled orders, including clinic medications orders, diagnostic test orders, procedure orders and consult orders; where the start date of the order is 45 days before the date of the Encounter or 45 days after the date of theEncounter. The data comes from all [place] treatment facilities. Test Date/Time Test Type Test Details Facility Name May 21, 2023 12:00 AM Laboratory - Chemi stry Order HCV RNA PCR PANEL(WHV) [facility]LOOD ([facility]GOLD[facility] [place] [facility] Social History: Smoking Status (Most current) and Tobacco Use (All prior to encounter date) This section includes the most current, and the historical, smoking and tobacco- related health factors from the [place] facility where the Encounter took place. Current Smoking Status This section includes the most current smoking, or tobacco-related health factor, from the [place] facility where the Encounter took place. Date/Time Current Smoking Status Comment Facil ity June 17, 2022 01:00 PM VA-TOBACCO NEVER USED [place] [facility] [place] [facility] Tobacco Use History This section includes a history of the smoking, or tobacco-related health factors, that were collected on or before the date of the Encounter. The data comes from the [place] facility where the Encounter took place. Date/Time Smoking Status/Tobacco Use Comment F acility Jul 16, 2021 01:00 PM VA-TOBACCO NEVER USED [facility] [place] [facility] July 03, 2020 01:00 PM VA-TOBACCO NEVER USED [facility] [place] [facility] Jul 11, 2019 02:57 PM VA-TOBACCO NEVER USED [facility] [place] [facility] Jan 14, 2019 08:50 AM VA-TOBACCO NEVER USED [facility] [place] [facility] Mar 04, 2018 01:20 PM VA-TOBACCO NEVER USED [facility] [place] [facility] May 27, 2017 11:01 AM LIFETIME NON-TOBACCO USER [facility] [place] [facility] May 20, 2016 10:51 AM LIFETIME NON-TOBACCO USER [facility] [place] [facility] May 03, 2015 01:13 PM LIFETIME NON-TOBACCO USER [facility] [place] [facility] Advance Directives: All historical and current Section Date Range: From patient's date of to the date document was created. This section includes ALL of a patient's completed or amended [place] Advance and Rescinded Directives. The entries below indicate that a directive exists for the patient, but an actual copy is not included with this document. The data comes from all [place] facilities. Date Advance Directives Provider Source Nov 08, 2019 ADVANCE DIRECTIVE MIGDALIA MILES [place] [facility] [place] [facility] Apr 14, 2019 ADVANCE DIRECTIVE RAFAL BULLARD [place] C [facility] [place] [facility] Encounter Notes: All associated encounter notes This section contains the clinical notes associated to the Encounter. Date/Time Encounter Note(s) Provider Source Apr 27, 2023 07:59 AM DENTISTRY ADMINIST RATIVE NOTE: LOCAL TITLE: DENTAL ADMINISTRATIVE NOTE STANDARD TITLE: DENTISTRY ADMINISTRATIVE NOTE DATE OF NOTE: APR 27, 2023@07:59 ENTRY DATE: APR 27, 2023@07:59:16 AUTHOR: CONNIE NUNN EXP COSIGNER: URGENCY: STATUS: COMPLETED FAXED BACK TX PLAN TO [facility] RADIOGRAPHS FOR REVIEW /rosio/ CONNIE NUNN RDH, BS STAFF, DENTAL HYGIENIST Signed: 04/27/2023 07:59 CONNIE NUNN [facility]
--- OUTSIDE RECORDS SUMMARY | 2024-02-16 09:07 | XMS_ITS | Encounter Summary ---
Author Name [facility] Organization [facility] [place] Address [address] [place] [address] Care Team Providers Care Video Editing Internship Name Role Phone SUBHA VELAZQUEZ Primary Care [...] Relationship to Policy Bryson GREGORY PUGA-WN R [place] SPECIAL CLASS GREGORY DIOP Sep 15, 2011 GREGORY PUGA [id number] PAULA GONZALES PATIENT HEALTH [facility] [employer] Aug 09, 2017 [id number] [phone] PAULA GONZALES PATIENT [facility] MEDIC[employer] SUPPLEMEN [facility] [facility] [facility] SUPP [facility] Aug 09, 2017 [id number] PAULA GONZALES PATIENT MEDICARE (WNR) MEDICARE (M) PART A Nov 10, 2019 PART A [id number] PAULA GONZALES PATIENT MEDICARE (WNR) MEDICARE (M) PART B Apr 09, 2010 PART B [id number] [phone] PAULA GONZALES PATIENT MEDICARE (WNR) MEDICARE (M) PART B Apr 09, 2010 PART B [id number] [id number] PAULA GONZALES PATIENT MEDICARE (WNR) MEDICARE (M) PART B Apr 09, 2010 PART B [id number] PAULA GONZALES PATIENT MEDICARE (WNR) MEDICARE (M) PART A Nov 09, 2009 PART A [id number] PAULA GONZALES PATIENT MEDICARE (WNR) MEDICARE (M) PART A Nov 09, 2009 PART A [id number] PAULA GONZALES PATIENT Selected Encounter This section includes the information on record at [place] for the Encounter. Date/Time Encounter Type Encounter Description Reason Provider Source Apr 22, 2023 08:30 AM TTE W/DOPPLER COMPLETE CARDIAC ECHO ICD-10-CM G47.37 Central sleep apnea in conditions classified elsewhere NICOLETTE UREÑA IHMikhail Encounter Template Text not used by [place] Assessments - Encounter Diagnoses This section includes the primary and secondary diagnoses documented for the Encounter. Date/Time Primary/Secondary Diagnosis Diagnosis Name Provider Source May 16, 2023 05:28 AM PRIMARY Central sleep apnea in conditions classified elsewhere NICOLETTE UREÑA [facility] Plan of Treatment: Future Appointments (+ 6 months) and Future Tests (+/- 45 days) The Plan of Treatment section includes future care activities for the patient from all [place] treatmentfacilities. This section includes future appointments and future orders which are active, pending or scheduled. Future Appointments This section includes appointments that were scheduled to occur 6 months from the date of the Encounter, up to a maximum of 20 appointments. The data comes from all [place] treatment facilities. Appointment Date/Time Appointment Type Appointme nt Facility Name Apr 23, 2023 08:00 AM [facility] May 06, 2023 12:30 PM [facility]ONE [facility] May 07, 2023 03:30 PM AMBULATORY - MEDICINE [facility] [place] [facility] May 12, 2023 01:00 PM [facility] May 19, 2023 01:00 PM AMBULATORY - PSYCHIATRY [facility] [place] [facility] May 21, 2023 02:00 PM AMBULATORY - MEDICINE [facility] [place] [facility] May 26, 2023 01:00 PM AMBULATORY - PSYCHIATRY [facility] [place] [facility] Jun 02, 2023 01:00 PM AMBULATORY - PSYCHIATRY [facility] [place] [facility] Jun 05, 2023 09:00 AM AMBULATORY - NONE [facility] [place] [facility] Jun 09, 2023 09:30 AM AMBULATORY - MEDICINE [facility] [place] [facility] Jun 09, 2023 09:31 AM AMBULATORY - [place]ICINE [place] [facility] June 30, 2023 01:00 PM AMBULATORY - PSYCHIATRY [facility] [place] [facility] Jul 28, 2023 01:00 PM AMBULATORY - PSYCHIATRY [facility] [place] [facility] Aug 04, 2023 01:00 PM AMBULATORY - PSYCHIATRY [facility] [place] [facility] Aug 11, 2023 09:00 AM AMBULATORY - MEDICINE [facility] [place] [facility] Aug 11, 2023 01:00 PM AMBULATORY - PSYCHIATRY [facility] [place] [facility] Aug 17, 2023 10:00 AM AMBULATORY - REHAB MEDICIN E [facility] [place] [facility] Sep 01, 2023 01:00 PM AMBULATORY - PSYCHIATRY [facility] [place] [facility] Sep 08, 2023 01:00 PM AMBULATORY - PSYCHIATRY [facility] [place] [facility] Sep 15, 2023 01:00 PM AMBULATORY - PSYCHIATRY [facility] [place] [facility] Active, Pending, and Scheduled Orders This section includes a listing of several types of active, pending, and scheduled orders, including clinic medications orders, diagnostic test orders, procedure orders and consult orders; where the start date of the order is 45 days before the date of the Encounter or 45 days after the date of theEncounter. The data comes from all [place] treatment facilities. Test Date/Time Test Type Test Details Facility Name May 21, 2023 12:00 AM Laboratory - Chemi stry Order HCV RNA PCR PANEL(WHV) BLOOD (SST-GOLD) SERUM SP [facility] [place] [facility] Social History: Smoking Status (Most current) and Tobacco Use (All prior to encounter date) This section includes the most current, and the historical, smoking and tobacco- related health factors from the [place] facility where the Encounter took place. Current Smoking Status This section includes the most current smoking, or tobacco-related health factor, from the [place] facility where the Encounter took place. Date/Time Current Smoking Status Comment Facil ity June 17, 2022 01:00 PM VA-TOBACCO NEVER USED [place] [facility] [place] [facility] Tobacco Use History This section includes a history of the smoking, or tobacco-related health factors, that were collected on or before the date of the Encounter. The data comes from the [place] facility where the Encounter took place. Date/Time Smoking Status/Tobacco Use Comment F acility Jul 16, 2021 01:00 PM VA-TOBACCO NEVER USED [place] [facility] [place] [facility] July 03, 2020 01:00 PM VA-TOBACCO NEVER USED NH [facility] [place] [facility] Jul 11, 2019 02:57 PM VA-TOBACCO NEVER USED NH [facility] [place] [facility] Jan 14, 2019 08:50 AM VA-TOBACCO NEVER USED NH [facility] [place] [facility] Mar 04, 2018 01:20 PM VA-TOBACCO NEVER USED NH [facility] [place] [facility] May 27, 2017 11:01 AM LIFETIME NON-TOBACCO USER [place] [facility] [place] [facility] May 20, 2016 10:51 AM LIFETIME NON-TOBACCO USER [place] [facility] [place] [facility] May 03, 2015 01:13 PM LIFETIME NON-TOBACCO USER [place] [facility] [place] [facility] Advance Directives: All historical and current Section Date Range: From patient's date of to the date document was created. This section includes ALL of a patient's completed or amended [place] Advance and Rescinded Directives. The entries below indicate that a directive exists for the patient, but an actual copy is not included with this document. The data comes from all [place] facilities. Date Advance Directives Provider Source Nov 08, 2019 ADVANCE DIRECTIVE MIGDALIA MILES [place] [facility] [place] [facility] Apr 14, 2019 ADVANCE DIRECTIVE RAFAL BULLARD [facility] Encounter Notes: All associated encounter notes This section contains the clinical notes associated to the Encounter. Date/Time Encounter Note(s) Provider Source Apr 24, 2023 01:30 PM CARDIOLOGY PROCEDURE NOTE: LOCAL TITLE: CP CARDIOLOGY ECHO STANDARD TITLE: CARDIOLOGY PROCEDURE NOTE DATE OF NOTE: APR 24, 2023@13:30:41 ENTRY DATE: APR 24, 2023@13:30:41 AUTHOR: CLINICAL,DEVICE PRO EXP COSIGNER: URGENCY: STATUS: COMPLETED PROCEDURE SUMMARY CODE: Machine Resulted DATE/TIME PERFORMED: APR 22, 2023@08:15:1 DOCUMENT IN VISTA IMAGING SEE FULL REPORT IN VISTA IMAGING SIGNATURE NOT REQUIRED SEE SIGNATURE IN VISTA IMAGING ([employer]CELERA (ADULT)) AUTO-INSTRUMENT DIAGNOSIS Procedure: Interop Interop Administrative Closure: 04/24/2023 by: Clinical,Device Proxy Service CLINICAL,DEVICE PROXY SERVICE [facility] Apr 22, 2023 08:40 AM CARDIOLOGY DIAGNOSTIC STUDY NOTE: LOCAL TITLE: ECHOCARDIOGRAM REPORT STANDARD TITLE: CARDIOLOGY DIAGNOSTIC STUDY NOTE DATE OF NOTE: APR 22, 2023@08:40 ENTRY DATE: APR 22, 2023@08:40:28 AUTHOR: TYSON UREÑA EXP COSIGNER: URGENCY: STATUS: COMPLETED DATE ECHOCARDIOGRAM PERFOMED: Apr ECHOCARDIOLOGY AIRCRAFT LOAD CONTROLLER: DORIS Rich RCS Procedure was performed without incident. The Study transmitted to [facility] via [employer] system for interpretation by legal associate. When interpretation is complete, results can be found under [employer]. /rosio/ CLAY CASTILLO Signed: 04/22/2023 08:41 TYSON UREÑA [facility]
--- OUTSIDE RECORDS SUMMARY | 2024-02-16 09:07 | XMS_ITS | Encounter Summary ---
Author Name [facility] [place] Organization [facility] [place] Address [address] [place] [address] Care Team Providers Care Finisher Merchant Products Name Role Phone SUBHA VELAZQUEZ Primary Care [...] Relationship to Policy Bryson GREGORY PUGA-WN R [place] SPECIAL CLASS GREGORY DIOP Sep 15, 2011 GREGORY PUGA [id number] PAULA GONZALES PATIENT [facility] [place] MEDICARE SUPPLEMEN [facility] Aug 09, 2017 [id number] PAULA GONZALES PATIENT [facility] [place] MEDICARE SUPPLEMEN [facility] SUPP PL Aug 09, 2017 [id number] PAULA GONZALES PATIENT MEDICARE (WNR) MEDICARE (M) PART A Nov 10, 2019 PART A [id number] PAULA GONZALES PATIENT MEDICARE (WNR) MEDICARE (M) PART B Apr 09, 2010 PART B [id number] PAULA GONZALES PATIENT MEDICARE (WNR) MEDICARE (M) PART B Apr 09, 2010 PART B [id number] PAULA GONZALES PATIENT MEDICARE (WNR) MEDICARE (M) PART B Apr 09, 2010 PART B [id number] [phone] PAULA GONZALES PATIENT MEDICARE (WNR) MEDICARE (M) PART A Nov 09, 2009 PART A [id number] PAULA GONZALES PATIENT MEDICARE (WNR) MEDICARE (M) PART A Nov 09, 2009 PART A [id number] PAULA GONZALES PATIENT Selected Encounter This section includes the information on record at [place] for the Encounter. Date/Time Encounter Type Encounter Description Reason Pro vider Source Apr 22, 2023 10:26 AM Outpatient Encounter PRIMARY CARE/MEDICINE IHE Encounter Template Text not used by [place] Plan of Treatment: Future Appointments (+ 6 months) and Future Tests (+/- 45 days) The Plan of Treatment section includes future care activities for the patient from all [place] [facility]. This section includes future appointments and future orders which are active, pending or scheduled. Future Appointments This section includes appointments that were scheduled to occur 6 months from the date of the Encounter, up to a maximum of 20 appointments. The data comes from all [place] treatment facilities. Appointment Date/Time Appointment Type Appointme nt Facility Name Apr 23, 2023 08:00 AM AMBULATORY [place]ICINE [place] [facility] [place] [facility] May 06, 2023 12:30 PM AMBULATORY - NONE [place] [facility] [place] [facility] May 07, 2023 03:30 PM AM[place]ORY [place]ICINE [place] [facility] [place] [facility] May 12, 2023 01:00 PM AMBULATORY [place]CHIATRY [place] [facility] [place] [facility] May 19, 2023 01:00 PM AMBULATORY [place] PS[place]IATRY [place] [facility] [place] [facility] May 21, 2023 02:00 PM AM[place]ULATORY [place]ICINE [place] [facility] [facility] May 26, 2023 01:00 PM AMBULATORY [place] PS[place]IATRY [place] [facility] [place] [facility] Jun 02, 2023 01:00 PM AMBULATORY [place]ATRY [place] [facility] [place] [facility] Jun 05, 2023 09:00 AM AMBULATORY - NONE [place] [facility] [place] [facility] Jun 09, 2023 09:30 AM AMBULATORY [place] MEDICINE [place] [facility] [place] [facility] Jun 09, 2023 09:31 AM AM[place]ORY [place]IC[place] [facility] June 30, 2023 01:00 PM AMBULATORY - PS[place]CHIATRY [place] [facility] [place] [facility] Jul 28, 2023 01:00 PM AMBULATORY - PS[place]CHIATRY [place] [facility] [place] [facility] Aug 04, 2023 01:00 PM AMBULATORY - PS[place]CHIATRY [place] [facility] [place] [facility] Aug 11, 2023 09:00 AM AMBULATORY - MEDICINE [place] [facility] [place] [facility] Aug 11, 2023 01:00 PM AMBULATORY - PSYCHIATRY [place] [facility] [place] [facility] Aug 17, 2023 10:00 AM AMBULATORY - REHAB MEDICIN E [place] [facility] [place] [facility] Sep 01, 2023 01:00 PM AMBULATORY - PSYCHIATRY [place] [facility] [place] [facility] Sep 08, 2023 01:00 PM AMBULATORY - PSYCHIATRY [place] [facility] [place] [facility] Sep 15, 2023 01:00 PM AMBULATORY - PSYCHIATRY [place] [facility] [place] [facility] Active, Pending, and Scheduled Orders This section includes a listing of several types of active, pending, and scheduled orders, including clinic medications orders, diagnostic test orders, procedure orders and consult orders; where the start date of the order is 45 days before the date of the Encounter or 45 days after the date of theEncounter. The data comes from all [place] treatment facilities. Test Date/Time Test Type Test Details Facility Name May 21, 2023 12:00 AM Laboratory - Chemi stry Order HCV RNA PCR PANEL(WHV) BLOOD (SST-GOLD) SERUM SP [place] [facility] [place] [facility] Social History: Smoking Status (Most current) and Tobacco Use (All prior to encounter date) This section includes the most current, and the historical, smoking and tobacco- related health factors from the [place] facility where the Encounter took place. Current Smoking Status This section includes the most current smoking, or tobacco-related health factor, from the [place] facility where the Encounter took place. Date/Time Current Smoking Status Comment Facil ity June 17, 2022 01:00 PM VA-TOBACCO NEVER USED [place] [facility] [place] [facility] Tobacco Use History This section includes a history of the smoking, or tobacco-related health factors, that were collected on or before the date of the Encounter. The data comes from the [place] facility where the Encounter took place. Date/Time Smoking Status/Tobacco Use Comment F acility Jul 16, 2021 01:00 PM VA-TOBACCO NEVER USED [place] [facility] [place] [facility] July 03, 2020 01:00 PM VA-TOBACCO NEVER USED [place] [facility] [place] [facility] Jul 11, 2019 02:57 PM VA-TOBACCO NEVER USED [place] [facility] [place] [facility] Jan 14, 2019 08:50 AM VA-TOBACCO NEVER USED [facility] [place] [facility] Mar 04, 2018 01:20 PM VA-TOBACCO NEVER USED [place] [facility] [place] [facility] May 27, 2017 11:01 AM LIFETIME NON-TOBACCO USER [place] [facility] [place] [facility] May 20, 2016 10:51 AM LIFETIME NON-TOBACCO USER [place] [facility] [place] [facility] May 03, 2015 01:13 PM LIFETIME NON-TOBACCO USER [place] [facility] [place] [facility] Advance Directives: All historical and current Section Date Range: From patient's date of to the date document was created. This section includes ALL of a patient's completed or amended [place] Advance and Rescinded Directives. The entries below indicate that a directive exists for the patient, but an actual copy is not included with this document. The data comes from all [place] facilities. Date Advance Directives Provider Source Nov 08, 2019 ADVANCE DIRECTIVE MIGDALIA MILES [place] [facility] [place] [facility] Apr 14, 2019 ADVANCE DIRECTIVE RAFAL BULLARD [place] [facility] [place] [facility] Encounter Notes: All associated encounter notes This section contains the clinical notes associated to the Encounter. Date/Time Encounter Note(s) Provider Source Apr 22, 2023 10:26 AM ADMINISTRATIVE NOT E: LOCAL TITLE: ADMINISTRATIVE NOTE STANDARD TITLE: ADMINISTRATIVE NOTE DATE OF NOTE: APR 22, 2023@10:26 ENTRY DATE: APR 22, 2023@10:26:24 AUTHOR: RAKESH FORD EXP COSIGNER: URGENCY: STATUS: COMPLETED is requesting a med refill to be mailed. 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
--- OUTSIDE RECORDS SUMMARY | 2024-02-16 09:07 | XMS_ITS | Encounter Summary ---
Author Name [facility] [place] [facility] [place] Organization [place] Address [address] [place] [address] Care Team Providers Care Construction Job Titles Name Role Phone SUBHA VELAZQUEZ Primary Care [...] Policy Bryson's Name Patient's Relationship to Policy Rbyson GREGORY PUGA-WN R [place] SPECIAL CLASS GREGORY DIOP Sep 15, 2011 GREGORY PUGA [id number] PAULA GONZALES PATIENT [facility] [place] MEDICARE SUPPLEMEN [facility] Aug 09, 2017 [id number] PAULA GONZALES PATIENT [facility] [place] MEDICARE SUPPLEMEN [facility] SUPP [facility] Aug 09, 2017 [id number] [phone] PAULA GONZALES PATIENT MEDICARE (WNR) MEDICARE (M) PART A Nov 10, 2019 PART A [id number] PAULA GONZALES PATIENT MEDICARE (WNR) MEDICARE (M) PART B Apr 09, 2010 PART B [id number] PAULA GONZALES PATIENT MEDICARE (WNR) MEDICARE (M) PART B Apr 09, 2010 PART B [id number] [phone] PAULA GONZALES PATIENT MEDICARE (WNR) MEDICARE (M) PART B Apr 09, 2010 PART B [id number] PAULA GONZALES PATIENT MEDICARE (WNR) MEDICARE (M) PART A Nov 09, 2009 PART A [id number] PAULA GONZALES PATIENT MEDICARE (WNR) MEDICARE (M) PART A Nov 09, 2009 PART A [id number] [phone] PAULA GONZALES PATIENT Selected Encounter This section includes the information on record at [place] for the Encounter. Date/Time Encounter Type Encounter Description Reason Provider Source May 08, 2023 04:21 PM FIT SPECTACLES MONOFOCAL OPTOMETRY ICD-10-CM Z46.0 Encounter for fit/adjst of spectacles and contact lenses JUNITO GIBBONS Encounter Template Text not used by [place] Assessments - Encounter Diagnoses This section includes the primary and secondary diagnoses documented for the Encounter. Date/Time Primary/Secondary Diagnosis Diagnosis Name Provider Source May 08, 2023 04:21 PM PRIMARY Encounter for fit/adjst of spectacles and contact lenses JEAN CARLOS CASTILLO [place] [facility] [place] [facility] Plan of Treatment: Future Appointments (+ 6 months) and Future Tests (+/- 45 days) The Plan of Treatment section includes future care activities for the patient from all [place] treatmentfacilities. This section includes future appointments and future orders which are active, pending or scheduled. Future Appointments This section includes appointments that were scheduled to occur 6 months from the date of the Encounter, up to a maximum of 20 appointments. The data comes from all [place] treatment facilities. Appointment Date/Time Appointment Type Appointme nt Facility Name May 12, 2023 01:00 PM AMBULATORY - PSYCHIATRY [place] [facility] [place] [facility] May 19, 2023 01:00 PM AMBULATORY - PSYCHIATRY [place] [facility] [place] [facility] May 21, 2023 02:00 PM AMBULATORY - MEDICINE [place] [facility] [place] [facility] May 26, 2023 01:00 PM AMBULATORY - PSYCHIATRY [place] [facility] [place] [facility] Jun 02, 2023 01:00 PM AMBULATORY - PSYCHIATRY [place] [facility] [place] [facility] Jun 05, 2023 09:00 AM AMBULATORY - NONE [facility] [place] [facility] Jun 09, 2023 09:30 AM AMBULATORY - MEDICINE [place] [facility] [place] [facility] Jun 09, 2023 09:31 AM AMBULATORY - [place]ICINE [place] [facility] June 30, 2023 01:00 PM AMBULATORY - PSYCHIATRY [place] [facility] [place] [facility] Jul 28, 2023 01:00 PM AMBULATORY - PSYCHIATRY [place] [facility] [place] [facility] Aug 04, 2023 01:00 PM AMBULATORY - PSYCHIATRY [place] [facility] [place] [facility] Aug 11, 2023 09:00 AM AMBULATORY - MEDICINE [place] [facility] [facility] Aug 11, 2023 01:00 PM AMBULATORY - PSYCHIATRY [place] [facility] [place] [facility] Aug 17, 2023 10:00 AM AMBULATORY - REHAB MEDICIN E [place] [facility] [place] [facility] Sep 01, 2023 01:00 PM AMBULATORY - PSYCHIATRY [place] [facility] [place] [facility] Sep 08, 2023 01:00 PM AMBULATORY - PSYCHIATRY [place] [facility] [place] [facility] Sep 15, 2023 01:00 PM AMBULATORY - PSYCHIATRY [place] [facility] [place] [facility] Sep 22, 2023 01:00 PM AMBULATORY - PSYCHIATRY [place] [facility] [place] [facility] Sep 24, 2023 09:00 AM AMBULATORY - MEDICINE [place] [facility] [facility] Sep 24, 2023 10:30 AM AMBULATORY - MEDICINE [place] [facility] [place] [facility] Active, Pending, and Scheduled Orders This section includes a listing of several types of active, pending, and scheduled orders, including clinic medications orders, diagnostic test orders, procedure orders and consult orders; where the start date of the order is 45 days before the date of the Encounter or 45 days after the date of theEncounter. The data comes from all [place] treatment facilities. Test Date/Time Test Type Test Details Facility Name May 21, 2023 12:00 AM Laboratory - Chemi stry Order HCV RNA PCR PANEL(WHV) BLOOD (SST-GOLD) SERUM SP [place] [facility] [place] [facility] Social History: Smoking Status (Most current) and Tobacco Use (All prior to encounter date) This section includes the most current, and the historical, smoking and tobacco- related health factors from the [place] facility where the Encounter took place. Current Smoking Status This section includes the most current smoking, or tobacco-related health factor, from the [place] facility where the Encounter took place. Date/Time Current Smoking Status Comment Louisa ity June 17, 2022 01:00 PM VA-TOBACCO NEVER USED [place] [facility] [place] [facility] Tobacco Use History This section includes a history of the smoking, or tobacco-related health factors, that were collected on or before the date of the Encounter. The data comes from the [place] facility where the Encounter took place. Date/Time Smoking Status/Tobacco Use Comment F acility Jul 16, 2021 01:00 PM VA-TOBACCO NEVER USED [place] [facility] [place] [facility] July 03, 2020 01:00 PM VA-TOBACCO NEVER USED [place] [facility] [place] [facility] Jul 11, 2019 02:57 PM VA-TOBACCO NEVER USED [place] [facility] [place] [facility] Jan 14, 2019 08:50 AM VA-TOBACCO NEVER USED [place] [facility] [place] [facility] Mar 04, 2018 01:20 PM VA-TOBACCO NEVER USED [place] [facility] [place] [facility] May 27, 2017 11:01 AM LIFETIME NON-TOBACCO USER [place] [facility] [place] [facility] May 20, 2016 10:51 AM LIFETIME NON-TOBACCO USER [place] [facility] [place] [facility] May 03, 2015 01:13 PM LIFETIME NON-TOBACCO USER [place] [facility] [place] [facility] Advance Directives: All historical and current Section Date Range: From patient's date of to the date document was created. This section includes ALL of a patient's completed or amended [place] Advance and Rescinded Directives. The entries below indicate that a directive exists for the patient, but an actual copy is not included with this document. The data comes from all [place] facilities. Date Advance Directives Provider Source Nov 08, 2019 ADVANCE DIRECTIVE MIGDALIA MILES [place] [facility] [place] [facility] Apr 14, 2019 ADVANCE DIRECTIVE RAFAL BULLARD [place] [facility] Radiology Reports: +/- 30 days of the encounter Radiology Reports For cases when an order for radiology services may have been completed prior to the date of the Encounter, the report list includes the Radiology Reports that were completed up to 30 days before dateof the Encounter. For cases when an order for radiology services may have been completed after the date of the Encounter, the report list also includes the Radiology Reports that were completed up to30 days after date of the Encounter. The data comes from all [place] treatment facilities. Date/Time Radiology Report Provider Source Jun 05, 2023 08:42 AM ECHOGRAM ABDOMEN LTD: PRASANTH GONZALES [id number] -[id number] M Ex Date: JUN 05, 2023@08:42 Req Phys: SUBHA VELAZQUEZ Loc: CWM/NO/PACT EIGHT (Req'g Loc) Img Loc: ULTRASOUND Service: Unknown (Case [id number] COMPLETE) ECHOPerceptis ABDOMEN LTD (US Detailed) CPT:15971 Reason for Study: h/o hep c Clinical History: Report Status: Verified Date Reported: JUN 05, 2023 Date Verified: JUN 05, 2023 Brush Hand E-Sig: Report: ECHOGRAM ABDOMEN LTD HISTORY: 77-year-old male with a history of hepatitis C. COMPARISON: None. TECHNIQUE: Sonographic imaging of the right and left upper quadrants was performed at the local [place] facility. 29 still images were received by the [place] National Teleradiology Program (NTP) for interpretation. FINDINGS: The liver measures up to 18 cm in maximum dimension. The liver appears diffusely and relatively homogeneously increased in echogenicity. The portal vein is patent with normally directed flow. Normal sonographic appearance of the gallbladder. The common bile duct is normal in caliber, measuring 4 mm. The spleen is normal in size, measuring 10.2 cm. Limited images of the pancreas do not suggest any specific abnormalities. No left or right upper quadrant ascites. Impression: 1. The liver is mildly and diffusely increased in echogenicity. This may be on the basis of the provided history of hepatitis C. Consider a baseline hepatic protocol CT or MRI to most rigorously assess for any underlying hepatic lesions. 2. The spleen is normal in size. 3. No ascites. READING PHYSICIAN: Han Godinez MD -[id number] 06/05/2023 16:18 EDT [facility] National Teleradiology Program [phone] (For Medical Practitioner Use Only) Attention Patients / Veterans: If you have questions or concerns about these test results, please contact your ordering provider or primary care team. Primary Diagnostic Code: NO ALERT REQUIRED Primary Interpreting Staff: RADIOLOGY,OUTSIDE SERVICE, Staff Physician / RAD[facility]OUTSIDE SERVICE [facility] Encounter Notes: All associated encounter notes This section contains the clinical notes associated to the Encounter. Date/Time Encounter Note(s) Provider Source May 08, 2023 04:21 PM OPTOMETRY NOTE: LOCAL TITLE: OPTOMETRY NOTE STANDARD TITLE: OPTOMETRY NOTE DATE OF NOTE: MAY 08, 2023@16:21 ENTRY DATE: MAY 08, 2023@16:21:16 AUTHOR: ELEAZAR TELLEZ COSIGNER: URGENCY: STATUS: COMPLETED OPTOMETRY NOTE Has ADDENDA dvo The quote provided below is for informational purposes only. Please verify prior to the creation of a purchase order. PRASANTH GONZALES 1092 RX INFORMATION OD +1.00 0.00 X Add:0.00 Pzm:0.00 Dir: Prz2:0.00 Dir2: OS +1.00 0.00 X Add:0.00 Pzm:0.00 Dir: Prz2:0.00 Dir2: FITTING INFORMATION FPD:62 NPD: [place]:R: L: SEG HT:R: L: Tint:None Shade:None [place] Billable Items FRAME: PEDRO PHILLIPS [id number] Right Lens: TRIVEX SINGLE VISION TRIVEX Left Lens: TRIVEX SINGLE VISION TRIVEX KLEAR ANTI-REFLECTIVE COATING ctr The quote provided below is for informational purposes only. Please verify prior to the creation of a purchase order. PRASANTH GONZALES 1092 RX INFORMATION OD +2.50 0.00 X Add:0.00 Pzm:0.00 Dir: Prz2:0.00 Dir2: OS +2.50 0.00 X Add:0.00 Pzm:0.00 Dir: Prz2:0.00 Dir2: FITTING INFORMATION FPD:60.5 NPD:60.5 [place]:R: L: SEG HT:R: L: Tint:None Shade:None [place] Billable Items FRAME: PEDRO PHILLIPS [id number] Right Lens: TRIVEX SINGLE VISION TRIVEX Left Lens: TRIVEX SINGLE VISION TRIVEX KLEAR ANTI-REFLECTIVE COATING dvo mckeon #3 The quote provided below is for informational purposes only. Please verify prior to the creation of a purchase order. PRASANTH GONZALES 1092 RX INFORMATION OD +1.00 0.00 X Add:0.00 Pzm:0.00 Dir: Prz2:0.00 Dir2: OS +1.00 0.00 X Add:0.00 Pzm:0.00 Dir: Prz2:0.00 Dir2: FITTING INFORMATION FPD:62 NPD: [place]:R: L: SEG HT:R: L: Tint:SOTELO Shade:3 [place] Billable Items FRAME: PEDRO PHILLIPS [id number] Right Lens: TRIVEX SINGLE VISION TRIVEX Left Lens: TRIVEX SINGLE VISION TRIVEX SOLID TINT /rosio/ ELEAZAR TELLEZ INFORMATION SERVICES ASSISTANT Signed: 05/08/2023 16:23 Receipt Acknowledged By: 05/11/2023 14:06 /rosio/ JEAN CARLOS [facility] 05/11/2023 ADDENDUM STATUS: COMPLETED PDS museum technician fit 2 DVO eyeglasses 1 Computer/intermediate eyeglasses on 05/07/2023. OPT HT enteredconsult(s) as requested for provider signature. /rosio/ JEAN CARLOS [facility] Signed: 05/11/2023 14:09 ELEAZAR TELLEZ [facility] [place] [facility]
--- OUTSIDE RECORDS SUMMARY | 2024-02-16 09:07 | XMS_ITS | Encounter Summary ---
Author Name [facility] [place] [facility] [place] [facility] [place] Address [address] [place] [address] Care Team Providers Care Case Folder Name Role Phone SUBHA VELAZQUEZ Primary Care Provider Unavailjoshua e Insurance Providers: All historical and current [...] Name Patient's Relationship to Policy Bryson GREGORY PUGA-MANI R [place] SPECIAL CLASS GREGORY DIOP Sep 15, 2011 GREGORY PUGA [id number] PAULA GONZALES [facility] [place] MEDICARE SUPPLEMEN [employer] [employer] [facility] Aug 09, 2017 [id number] PAULA GONZALES [facility] [place] MEDICARE SUPPLEMEN [facility] Aug 09, 2017 [id number] PAULA GONZALES PATIENT MEDICARE (WNR) MEDICARE (M) PART A Nov 10, 2019 PART A [id number] [phone] PAULA GONZALES PATIENT MEDICARE (WNR) MEDICARE (M) PART B Apr 09, 2010 PART B [id number] PAULA GONZALES PATIENT MEDICARE (WNR) MEDICARE (M) PART B Apr 09, 2010 PART B [id number] PAULA GONZALES PATIENT MEDICARE (WNR) MEDICARE (M) PART B Apr 09, 2010 PART B [id number] PAULA GONZALES PATIENT MEDICARE (WNR) MEDICARE (M) PART A Nov 09, 2009 PART A [id number] PAULA GONZALES PATIENT MEDICARE (WNR) MEDICARE (M) PART A Nov 09, 2009 PART A [id number] PAULA GONZALES PATIENT Selected Encounter This section includes the information on record at [place] for the Encounter. Date/Time Encounter Type Encounter Description Reason Provider Source May 06, 2023 12:30 PM OFFICE/OUTPATIE NT VISIT NEW SLEEP MEDICINE ICD-10-CM G47.33 Obstructive sleep apnea (adult) (pediatric) PATRICE SRIVASTAVA Mikhail Encounter Template Text not used by [place] Assessments - Encounter Diagnoses This section includes the primary and secondary diagnoses documented for the Encounter. Date/Time Primary/Secondary Diagnosis Diagnosis Name Provider Source May 21, 2023 04:31 PM PRIMARY Obstructive sleep apnea (adult) (pediatric) PATRICE SRIVASTAVA [place] Plan of Treatment: Future Appointments (+ 6 [...] Appointment Type Appointme nt Facility Name May 07, 2023 03:30 PM AMBULATORY - MEDICINE [facility] [place] [facility] May 12, 2023 01:00 PM AMBULATORY - PSYCHIATRY [facility] [place] [facility] May 19, 2023 01:00 PM AMBULATORY - PSYCHIATRY [facility] [place] [facility] May 21, 2023 02:00 PM AMBULATORY - MEDICINE [facility] [place] [facility] May 26, 2023 01:00 PM AMBULATORY - PSYCHIATRY [place] [facility] [place] [facility] Jun 02, 2023 01:00 PM AMBULATORY - PSYCHIATRY [facility] [place] [facility] Jun 05, 2023 09:00 AM AMBULATORY - NONE [facility] [place] [facility] Jun 09, 2023 09:30 AM AMBULATORY - MEDICINE [facility] [place] [facility] Jun 09, 2023 09:31 AM AM[place]ORY - [place]IC[place] [facility] June 30, 2023 01:00 PM AMBULATORY - PSYCHIATRY [facility] [place] [facility] Jul 28, 2023 01:00 PM AMBULATORY - PSYCHIATRY [facility] [place] [facility] Aug 04, 2023 01:00 PM AMBULATORY - PSYCHIATRY [facility] [place] [facility] Aug 11, 2023 09:00 AM AMBULATORY - MEDICINE [facility] [place] [facility] Aug 11, 2023 01:00 PM AMBULATORY - PSYCHIATRY [facility] [place] [facility] Aug 17, 2023 10:00 AM AMBULATORY - REHAB MEDICIN E [facility] [place] [facility] Sep 01, 2023 01:00 PM AMBULATORY - PSYCHIATRY [facility] [place] [facility] Sep 08, 2023 01:00 PM AMBULATORY - PSYCHIATRY [facility] [place] [facility] Sep 15, 2023 01:00 PM AMBULATORY - PSYCHIATRY [facility] [place] [facility] Sep 22, 2023 01:00 PM AMBULATORY - PSYCHIATRY [facility] [place] [facility] Sep 24, 2023 09:00 AM AMBULATORY - MEDICINE [facility] [place] [facility] Active, Pending, and Scheduled Orders This [...] (SST-GOLD) SERUM SP [facility] [place] [facility] Social History: Smoking Status (Most current) [...] place. Date/Time Current Smoking Status Comment Facil [facility] Jul 17, 2000 02:08 PM LIFETIME NON-SMOKER [place] Advance Directives: All historical and current Section [...] Provider Source Nov 08, 2019 ADVANCE DIRECTIVE NETOMIGDALIA WOODARD [facility] Apr 14, 2019 ADVANCE DIRECTIVE JUAN MIGUELRAFAL KEREN [facility] Radiology Reports: +/- 30 days [...] the Encounter. The data comes from all [place] treatment facilities. Date/Time Radiology Report Provider Source Jun 05, 2023 08:42 AM ECHOGRAM ABDOMEN LTD: PRASANTH GONZALES [id number] -[id number] M Ex Date: JUN 05, 2023@08:42 Req Phys: SUBHA VELAZQUEZ Loc: CWM/NO/PACT EIGHT (Req'g Loc) Img Loc: ULTRASOUND Service: Unknown (Case [id number] COMPLETE) ECHOGRAM ABDOMEN LTD (US Detailed) CPT:50384 Reason for Study: h/o hep c Clinical History: Report Status: Verified Date Reported: JUN 05, 2023 Date Verified: JUN 05, 2023 Safety Net Maker E-Sig: Report: ECHOGRAM ABDOMEN LTD HISTORY: 77-year-old male with a history of hepatitis C. COMPARISON: None. TECHNIQUE: Sonographic imaging of the right and left upper quadrants was performed at the local [place] facility. 29 still images were received by the [place] National Teleradiology Program (NTP) for interpretation. FINDINGS: [...] No ascites. READING PHYSICIAN: Han Godinez MD -[id number] 06/05/2023 16:18 EDT [facility] National Teleradiology Program [phone] (For Medical Practitioner Use Only) Attention Patients / Veterans: If you have questions or concerns about these test results, please contact your ordering provider or primary care team. Primary Diagnostic Code: NO ALERT REQUIRED Primary Interpreting Staff: RADIOLOGY,OUTSIDE SERVICE, Staff Physician / RADIOLOGY,OUTSIDE SERVICE [facility] Encounter Notes: All associated encounter notes This section contains the clinical notes associated to the Encounter. Date/Time Encounter Note(s) Provider Source May 06, 2023 12:30 PM RESPIRATORY THERAP Y CONSULT: LOCAL TITLE: CONSULT REPORT/RESPIRATORY THERAPY STANDARD TITLE: RESPIRATORY THERAPY CONSULT DATE OF NOTE: MAY 06, 2023@12:30 ENTRY DATE: MAY 06, 2023@13:23:05 AUTHOR: PATRICE SRIVASTAVA EXP COSIGNER: URGENCY: STATUS: COMPLETED Reason for Visit: Education for new PAP Device Setup Progress Note: Education for New PAP Device Setup: How new PAP Device was provided: Device was provided to [place] from a [place] clinical site Information and settings of Device provided: Device: AirCurve 10 ASV Intersect ENT [place] Serial number: [id number] Device number: 719 Settings: with diagnosis of mixed sleep apnea was seen in clinic for ASV set up. [place] was seen by [facility] and had testing done at [facility] CVT follow up scheduled for May. [place] Home sleep study on 01/2023 at [facility] note in JLV, ECHO 65% . [place] was issued an AirCurve 10 ASV set to EPAP 7 cmH2O, PS 3-15 cmH2O with mask, tube, filter, tank and SD card. [place] Consent for data Monitoring: [place] approves of activation of modem for remote monitoring of PAP data? Yes approves to receive automated adherence messages? Yes Patient or Caregiver was provided verbal and/or Written instructions on: Equipment use and function Electrical safety including use of grounded or polarized outlets only and avoidance of electoral adapter use Equipment care including cleaning, maintenance, and supply replacement Sleep center contact information Patient or caregiver was able to show demonstration on equipment use Yes Plan of Future Care: Repeat download required Other follow up phone Additional comments: instructed on proper operation and cleaning of all equipment and given manuals. Vet was fit with F20 full face mask large cushion and instructed in application and adjustments. Information regarding magnetized masks was given. [place] demonstrated understanding of all instructions. We discussed ways to acclimate to therapy and the dangers of untreated sleep apnea. [place] was encouraged to call with any issues. Clinic and provider contact information was provided. will have 1&4 week follow up. Self-alert placed for yearly renewal. Minutes professional time spent providing care.: 60 min /rosio/ PATRICE SRIVASTAVA RESPIRATORY THERAPIST Signed: 05/06/2023 13:23 PATRICE SRIVASTAVA [place]
--- OUTSIDE RECORDS SUMMARY | 2024-02-16 09:07 | XMS_ITS | Encounter Summary ---
Author Name [facility] [place] Organization [facility] [place] Address [address] [place] [address] Care Team Providers Care Mill Hand Name Role Phone SUBHA VELAZQUEZ Primary Care [...] Relationship to Policy Bryson GREGORY PUGA-WN R [place] SPECIAL CLASS GREGORY DIOP Sep 15, 2011 GREGORY PUGA [id number] PAULA GONZALES PATIENT [facility] [place] MEDICARE SUPPLEMEN [employer] Aug 09, 2017 [id number] [phone] PAULA GONZALES [facility] [place] MEDICARE SUPPLEMEN [facility] E[facility] Aug 09, 2017 [id number] PAULA GONZALES PATIENT MEDICARE (WNR) MEDICARE (M) PART A Nov 10, 2019 PART A [id number] PAULA GONZALES PATIENT MEDICARE (WNR) MEDICARE (M) PART B Apr 09, 2010 PART B [id number] PAULA GONZALES PATIENT MEDICARE (WNR) MEDICARE (M) PART B Apr 09, 2010 PART B [id number] PAULA GONZALES PATIENT MEDICARE (WNR) MEDICARE (M) PART B Apr 09, 2010 PART B [id number] PAULA GONZALES PATIENT MEDICARE (WNR) MEDICARE (M) PART A Nov 09, 2009 PART A [id number] PAULA GONZALES PATIENT MEDICARE (WNR) MEDICARE (M) PART A Nov 09, 2009 PART A [id number] PAULA GONZALES PATIENT Selected Encounter This section includes the information on record at [place] for the Encounter. Date/Time Encounter Type Encounter Description Reason Provider Source Apr 07, 2023 01:00 PM PSYTX W PT 45 MINUTES [facility] - IND ICD-10-CM F43.10 Post-traumatic stress disorder, unspecified NATHAN KIRK Mikhail Encounter Template Text not used by [place] Assessments - Encounter Diagnoses This section includes the primary and secondary diagnoses documented for the Encounter. Date/Time Primary/Secondary Diagnosis Diagnosis Name Provider Source Apr 08, 2023 08:38 AM PRIMARY Post-traumatic stress disorder, unspecified NATHAN KIRK [facility] Plan of Treatment: Future Appointments (+ 6 months) and Future Tests (+/- 45 days) The Plan of Treatment section includes future care activities for the patient from all [place] treatmentfacilities. This section includes future appointments and future orders which are active, pending or scheduled. Future Appointments This section includes appointments that were scheduled to occur 6 months from the date of the Encounter, up to a maximum of 20 appointments. The data comes from all [place] treatment facilities. Appointment Date/Time Appointment Type Appointme nt Facility Name Apr 17, 2023 11:00 AM [facility] Apr 21, 2023 09:30 AM AMBULATORY [place]ICINE [place] [facility] [place] [facility] Apr 22, 2023 08:30 AM [facility]ONE [facility] Apr 23, 2023 08:00 AM [facility] May 06, 2023 12:30 PM AMBULATORY - NONE [facility] [place] [facility] May 07, 2023 03:30 PM AMBULATORY - MEDICINE [facility] [place] [facility] May 12, 2023 01:00 PM AMBULATORY - PSYCHIATRY [facility] [place] [facility] May 19, 2023 01:00 PM AMBULATORY - PSYCHIATRY [facility] [place] [facility] May 21, 2023 02:00 PM AMBULATORY - MEDICINE [facility] [place] [facility] May 26, 2023 01:00 PM AMBULATORY - PSYCHIATRY [facility] [place] [facility] Jun 02, 2023 01:00 PM AMBULATORY - PSYCHIATRY [facility] [place] [facility] Jun 05, 2023 09:00 AM AMBULATORY - NONE [facility] [place] [facility] Jun 09, 2023 09:30 AM AMBULATORY - MEDICINE [facility] [place] [facility] Jun 09, 2023 09:31 AM [facility] [place] [facility] June 30, 2023 01:00 PM AMBULATORY - PSYCHIATRY [facility] [place] [facility] Jul 28, 2023 01:00 PM AMBULATORY - PSYCHIATRY [facility] [place] [facility] Aug 04, 2023 01:00 PM AMBULATORY - PSYCHIATRY [facility] [place] [facility] Aug 11, 2023 09:00 AM AMBULATORY - MEDICINE [facility] [place] [facility] Aug 11, 2023 01:00 PM AMBULATORY - PSYCHIATRY [facility] [place] [facility] Aug 17, 2023 10:00 AM AMBULATORY - REHAB MEDICIN E [facility] [place] [facility] Active, Pending, and Scheduled Orders This section includes a listing of several types of active, pending, and scheduled orders, including clinic medications orders, diagnostic test orders, procedure orders and consult orders; where the start date of the order is 45 days before the date of the Encounter or 45 days after the date of theEncounter. The data comes from all [place] treatment facilities. Test Date/Time Test Type Test Details Facility Name May 21, 2023 12:00 AM Laboratory - Chemi stry Order HCV RNA PCR PANEL(WHV) BLOOD (SST-GOLD) SERUM SP [facility] [place] [facility] Social History: Smoking Status (Most current) and Tobacco Use (All prior to encounter date) This section includes the most current, and the historical, smoking and tobacco- related health factors from the [place] facility where the Encounter took place. Current Smoking Status This section includes the most current smoking, or tobacco-related health factor, from the [place] facility where the Encounter took place. Date/Time Current Smoking Status Comment Facil ity June 17, 2022 01:00 PM VA-TOBACCO NEVER USED [place] [facility] [place] [facility] Tobacco Use History This section includes a history of the smoking, or tobacco-related health factors, that were collected on or before the date of the Encounter. The data comes from the [place] facility where the Encounter took place. Date/Time Smoking Status/Tobacco Use Comment F acility Jul 16, 2021 01:00 PM VA-TOBACCO NEVER USED [place] [facility] [place] [facility] July 03, 2020 01:00 PM VA-TOBACCO NEVER USED [facility] [place] [facility] Jul 11, 2019 02:57 PM VA-TOBACCO NEVER USED [facility] [place] [facility] Jan 14, 2019 08:50 AM VA-TOBACCO NEVER USED [place] [facility] [place] [facility] Mar 04, 2018 01:20 PM VA-TOBACCO NEVER USED [facility] [place] [facility] May 27, 2017 11:01 AM LIFETIME NON-TOBACCO USER [place] [facility] [place] [facility] May 20, 2016 10:51 AM LIFETIME NON-TOBACCO USER [place] [facility] [place] [facility] May 03, 2015 01:13 PM LIFETIME NON-TOBACCO USER [place] [facility] [place] [facility] Advance Directives: All historical and current Section Date Range: From patient's date of to the date document was created. This section includes ALL of a patient's completed or amended [place] Advance and Rescinded Directives. The entries below indicate that a directive exists for the patient, but an actual copy is not included with this document. The data comes from all [place] facilities. Date Advance Directives Provider Source Nov 08, 2019 ADVANCE DIRECTIVE MIGDALIA MILES [place] [facility] [place] [facility] Apr 14, 2019 ADVANCE DIRECTIVE RAFAL BULLARD [place] [facility] [place] [facility] Encounter Notes: All associated encounter notes This section contains the clinical notes associated to the Encounter. Date/Time Encounter Note(s) Provider Source Apr 07, 2023 01:13 PM MENTAL HEALTH DIAG NOSTIC STUDY NOTE: LOCAL TITLE: MENTAL HEALTH DIAGNOSTIC STUDY STANDARD TITLE: MENTAL HEALTH DIAGNOSTIC STUDY NOTE DATE OF NOTE: APR 07, 2023@13:13:21 ENTRY DATE: APR 07, 2023@13:13:21 AUTHOR: NATHAN KIRK EXP COSIGNER: URGENCY: STATUS: COMPLETED These assessments were completed by PRASANTH GONZALES via provider direct entry on 04/07/2023 1:12:15 PM. PTSD CHECKLIST (PCL-5) - WEEKLY Patient reported being bothered by the following over the past week: 1. Disturbing memories: Moderately 2. Disturbing dreams: A little bit 3. Re-experiencing events: Not at all 4. Cued distress: Not at all 5. Cued physical symptoms: Not at all 6. Avoiding internal reminders: Not at all 7. Avoiding external reminders: Not at all 8. Trouble with recall: Not at all 9. Negative beliefs: Not at all 10. Blaming self/others: Not at all 11. Negative feelings: Not at all 12. Loss of interest: Not at all 13. Feeling distant from others: Not at all 14. Feeling numb: Not at all 15. Feeling irritable: Not at all 16. Reckless behavior: Not at all 17. Being super-alert : Not at all 18. Feeling easily startled: Not at all 19. Difficulty concentrating: Not at all 20. Trouble sleeping: Not at all PCL-5 total score = 3 This measure assesses an individual's perception of the distress associated with possible PTSD symptoms. It is not used to diagnose PTSD. Symptoms are rated from 0-4 in terms of distress they cause the individual. Scores that are greater than or equal to 31-33 suggest that the may meet the criteria for a PTSD diagnosis. However, it is important to use caution when using this cutoff since it is possible for some Veterans with scores lower than 31-33 to meet criteria for PTSD. Additional testing using a structured diagnostic interview, such as the Clinician Administered PTSD Scale for DSM-5, is recommended to confirm diagnostic status. /rosio/ NATHAN KIRK, Ph.D Clinical Psychologist Signed: 04/07/2023 13:51 NATHAN KIRK [place] [facility] [place] [facility] Apr 07, 2023 01:00 PM TELEHEALTH NOTE: LOCAL TITLE: [place] [employer] PSYCHOLOGY NOTE STANDARD TITLE: TELEHEALTH NOTE DATE OF NOTE: APR 07, 2023@13:00 ENTRY DATE: APR 07, 2023@13:01:08 AUTHOR: NATHAN KIRK EXP COSIGNER: URGENCY: STATUS: COMPLETED [place] [employer] (VVC) Standard Documentation [facility] Clinician Resources Only: E911 (Emergency Call Relay Center): [phone] [facility] Crisis Line - 988 then press #1. [facility] Suicide Coordinator [phone], Ext. [phone]; Back-up Ext. [phone] [place] Police, [place] JOSHUA [phone] Introduction: Visit is being conducted by [place] Lien Enforcement. identified with 2 identifiers: [X] Full Name [X] Date of [ ] [place] ID Card Emergency Plan: confirmed and/or provided the following information in case of emergency or technology failure. PATIENT PHONE - PHONE NUMBER [CELLULAR] - Is patient phone number correct, if not, enter below: [place]'s phone number: PRASANTH GONZALES [address] [place], [place], [address] 's present location and address for appointment: [place] [address] 's emergency contact name and phone number: Layla Jung [facility] reported that location is private and safe: Yes Informed Consent: informed of the risks and benefits of Telehealth video care. [place] has the right to refuse video services. If refuses video visit, a amkg-et-prca visit will be scheduled. [place] verbalized consent for this video visit: Yes [place] provided consent for any other persons present [...] court of law and presented to a tribal judge), and DOD access for active-duty service members. Provided Suicide Prevention Hotline number, and other contact numbers as necessary. VISIT DURATION: 48 Minutes *[place]ty needed a couple of additional minutes to address his current concerns. DIAGNOSES: PTSD [employer] STATEMENT OF GOALS/CONCERNS: Reduce irritability, avoidance, work on current challenges (including medical issues), relationship issues, increase. meaningful activities and remain connected with people he is close to. SESSION FOCUS: Session focused on Art's medical issues and the impact on his quality of life. He also shared his frustrations with filing disability claims. 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 He has had multiple surgeries over the past few years, and treatment for bladder cancer. Art recently had knee replacement surgery and is recovering well. In addition, Art shared that he is tired of trying to figure out what is needed for various claims he is working on, particularly, his exposure to contaminated water at [place]. Art stated he believes his bladder cancer could have been caused by multiple exposures (agent orange or contaminated water from [place]. Recommended [place] meet with a [facility] ambulatory service representative for assistance with his claims, and he agreed this would be helpful. The remainder of the session focused on finding ways to incorporate meaningful activities, and the things he loves, and coping skills to address increased anxiety. [place] shared that it was helpful to talk about these issues. Shared with he is welcome to reach out to this provider should he need additional assistance. He expressed appreciation and would do so if needed. INTERVENTIONS: Psychotherapeutic Interventions: Increase [...] or delusions): Yes 8. Mood was normal: Yes, with some anxiety around current issues RISK ASSESSMENT: No suicidal/homicidal ideation reported PLAN FOR FOLLOW-UP: Next session planned for: 04/21/23 at 1:00pm /rosio/ NATHAN KIRK, Ph.D Clinical Psychologist Signed: 04/08/2023 08:38 NATHAN KIRK [facility]
--- OUTSIDE RECORDS SUMMARY | 2024-02-16 09:07 | XMS_ITS | Encounter Summary ---
Author Name [facility] [facility] [place] [facility] [place] Address [address] [place] [address] Care Team Providers Care Retail Property Manager Name Role Phone SUBHA VELAZQUEZ Primary Care [...] Relationship to Policy Bryson GREGORY PUGA-WN R [place] SPECIAL [place] GREGORY DIOP Sep 15, 2011 GREGORY PUGA [id number] PAULA GONZALES PATIENT [facility] [employer] [facility] Aug 09, 2017 [id number] [phone] PAULA GONZALES PATIENT [facility] [facility] SUPP PL Aug 09, 2017 [id number] PAULA GONZALES PATIENT MEDICARE (WNR) MEDICARE (M) PART A Nov 10, 2019 PART A [id number] PAULA GONZALES PATIENT MEDICARE (WNR) MEDICARE (M) PART B Apr 09, 2010 PART B [id number] PAULA GONZALES PATIENT MEDICARE (WNR) MEDICARE (M) PART B Apr 09, 2010 PART B [id number] PAULA GONZALES PATIENT MEDICARE (WNR) MEDICARE (M) PART B Apr 09, 2010 PART B [id number] PAULA GONZALES PATIENT MEDICARE (WNR) MEDICARE (M) PART A Nov 09, 2009 PART A [id number] PAULA GONZALES PATIENT MEDICARE (WNR) MEDICARE (M) PART A Nov 09, 2009 PART A [id number] PAULA GONZALES PATIENT Selected Encounter This section includes the information on record at [place] for the Encounter. Date/Time Encounter Type Encounter Description Reason Provider Source May 07, 2023 03:30 PM COMPRE OPH EXAM EST PT 1/> OPTOMETRY ICD-10-CM L71.8 Other rosacea JUNITO GIBBONS Mikhail Encounter Template Text not used by [place] Assessments - Encounter Diagnoses This section includes the primary and secondary diagnoses documented for the Encounter. Date/Time Primary/Secondary Diagnosis Diagnosis Name Provider Source Jun 05, 2023 09:41 AM PRIMARY Other rosacea JUNITO GIBBONS [facility] Jun 05, 2023 09:41 AM SECONDARY Combined forms of age-related cataract, bilateral JUNITO GIBBONS [facility] Jun 05, 2023 09:41 AM SECONDARY Cysts of unspecified eye, unspecified eyelid JUNITO GIBBONS [facility] Jun 05, 2023 09:41 AM SECONDARY Dry eye syndrome of bilateral lacrimal glands JUNITO GIBBONS [facility] Jun 05, 2023 09:41 AM SECONDARY Meibomian gland dysfnct left eye, upper and lower eyelids JUNITO GIBBONS [facility] Jun 05, 2023 09:41 AM SECONDARY Meibomian gland dysfnct right eye, upper and lower eyelids JUNITO GIBBONS [facility] Plan of Treatment: Future Appointments (+ 6 months) and Future Tests (+/- 45 days) The Plan of Treatment section includes future care activities for the patient [facility] This section includes future appointments and future orders which are active, pending or scheduled. Future Appointments This section includes appointments that were scheduled to occur 6 months from the date of the Encounter, up to a maximum of 20 appointments. The data comes from all [place] treatment facilities. Appointment Date/Time Appointment Type Appointme nt Facility Name May 12, 2023 01:00 PM AMBULATORY - [facility]ATRY [facility] May 19, 2023 01:00 PM AMBULATORY - PS[facility]IATRY [facility] May 21, 2023 02:00 PM AMBULATORY - MEDICINE [facility] May 26, 2023 01:00 PM AMBULATORY - PSYCHIATRY [facility] Jun 02, 2023 01:00 PM AMBULATORY - PS[facility]IATRY [facility] Jun 05, 2023 09:00 AM AMBULATORY - NONE [facility] Jun 09, 2023 09:30 AM AMBULATORY [facility] MEDICINE [facility] Jun 09, 2023 09:31 AM AMBULATORY - MEDICINE [facility] June 30, 2023 01:00 PM AMBULATORY - PSYCHIATRY [facility] Jul 28, 2023 01:00 PM AMBULATORY - PSYCHIATRY [facility] Aug 04, 2023 01:00 PM AMBULATORY - PSYCHIATRY [facility] Aug 11, 2023 09:00 AM AMBULATORY - MEDICINE [facility] Aug 11, 2023 01:00 PM AMBULATORY - PSYCHIATRY [facility] Aug 17, 2023 10:00 AM AMBULATORY - REHAB MEDICIN E [facility] Sep 01, 2023 01:00 PM AMBULATORY - PSYCHIATRY [facility] Sep 08, 2023 01:00 PM AMBULATORY - PSYCHIATRY [facility] Sep 15, 2023 01:00 PM AMBULATORY - PSYCHIATRY [facility] Sep 22, 2023 01:00 PM AMBULATORY - PS[facility]CHIATRY [facility] Sep 24, 2023 09:00 AM AMBULATORY [place]ICINE [facility] Sep 24, 2023 10:30 AM [facility] Active, Pending, and Scheduled Orders This section includes a listing of several types of active, pending, and scheduled orders, including clinic medications orders, diagnostic test orders, procedure orders and consult orders; where the start date of the order is 45 days before the date of the Encounter or 45 days after the date of theEncounter. The data comes from all [place] treatment facilities. Test Date/Time Test Type Test Details Facility Name May 21, 2023 12:00 AM Laboratory - Chemi stry Order HCV RNA PCR PANEL(WHV) BLOOD (SST-GOLD) SERUM SP [facility] Social History: Smoking Status (Most current) and Tobacco Use (All prior to encounter date) This section includes the most current, and the historical, smoking and tobacco- related health factors from the [place] facility where the Encounter took place. Current Smoking Status This section includes the most current smoking, or tobacco-related health factor, from the [place] facility where the Encounter took place. Date/Time Current Smoking Status Comment Facil ity June 17, 2022 01:00 PM VA-TOBACCO NEVER USED [place] [facility] Tobacco Use History This section includes a history of the smoking, or tobacco-related health factors, that were collected on or before the date of the Encounter. The data comes from the [place] facility where the Encounter took place. Date/Time Smoking Status/Tobacco Use Comment F acility Jul 16, 2021 01:00 PM VA-TOBACCO NEVER USED [facility] July 03, 2020 01:00 PM VA-TOBACCO NEVER USED [facility] Jul 11, 2019 02:57 PM VA-TOBACCO NEVER USED [facility] Jan 14, 2019 08:50 AM VA-TOBACCO NEVER USED [facility] Mar 04, 2018 01:20 PM VA-TOBACCO NEVER USED [facility] May 27, 2017 11:01 AM LIFETIME NON-TOBACCO USER [facility] May 20, 2016 10:51 AM LIFETIME NON-TOBACCO USER [place] [facility] May 03, 2015 01:13 PM LIFETIME NON-TOBACCO USER [facility] Advance Directives: All historical and current Section Date Range: From patient's date of to the date document was created. This section includes ALL of a patient's completed or amended [place] Advance and Rescinded Directives. The entries below indicate that a directive exists for the patient, but an actual copy is not included with this document. The data comes from all [place] facilities. Date Advance Directives Provider Source Nov 08, 2019 ADVANCE DIRECTIVE MIGDALIA MILES [place] [facility] Apr 14, 2019 ADVANCE DIRECTIVE RAFAL BULLARD [place] [facility] Radiology Reports: +/- 30 days of [...] the Encounter. The data comes from all [place] treatment facilities. Date/Time Radiology Report Provider Source Jun 05, 2023 08:42 AM ECHOGRAM ABDOMEN LTD: PRASANTH GONZALES [id number] -1945 M [facility] Date: JUN 05, 2023@08:42 Req Phys: SUBHA VELAZQUEZ Loc: CWM/NO/PACT EIGHT (Req'g Loc) Img Loc: ULTRASOUND Service: Unknown (Case [id number] COMPLETE) ECHOGRAM ABDOMEN LTD (US Detailed) CPT:90773 Reason for Study: h/o hep c Clinical History: Report Status: Verified Date Reported: JUN 05, 2023 Date Verified: JUN 05, 2023 Dehydrogenation Supervisor E-Sig: Report: ECHOGRAM ABDOMEN LTD HISTORY: 77-year-old male with a history of hepatitis C. COMPARISON: None. TECHNIQUE: Sonographic imaging of the right and left upper quadrants was performed at the local [place] facility. 29 still images were received by the [place] National Teleradiology Program (NTP) for interpretation. FINDINGS: [...] No ascites. READING PHYSICIAN: Han Godinez MD -[id number] 06/05/2023 16:18 EDT [facility] National Teleradiology Program [phone] (For Medical Practitioner Use Only) Attention Patients / Veterans: If you have questions or concerns about these test results, please contact your ordering provider or primary care team. Primary Diagnostic Code: NO ALERT REQUIRED Primary Interpreting Staff: RADIOLOGY,OUTSIDE SERVICE, Staff Physician / RADIOLOGY,OUTSIDE SERVICE [facility] Encounter Notes: All associated encounter notes This section contains the clinical notes associated to the Encounter. Date/Time Encounter Note(s) Provider Source May 07, 2023 01:15 PM OPTOMETRY NOTE: LOCAL TITLE: OPTOMETRY NOTE STANDARD TITLE: OPTOMETRY NOTE DATE OF NOTE: MAY 07, 2023@13:15 ENTRY DATE: MAY 07, 2023@13:15:36 AUTHOR: KASI GRIFFITH EXP COSIGNER: EDVIN GIBBONS URGENCY: STATUS: COMPLETED OPTOMETRY NOTE Has ADDENDA Active problems - Computerized Problem List is the source for the followin. Contact with and (Suspected) Exposure to Water Pollution 2. Exposure to potentially hazardous substance 3. COPD - Chronic Obstructive Pulmonary Disease ([facility] [id number]) 4. Allergic Rhinitis ([facility] [id number]) 5. Peripheral vascular disease 6. Back pain 7. Bladder cancer 8. Hyperlipidemia 9. Sleep apnea 10. Mood disorder with depressive features due to general medical condition 11. Hard of hearing 12. Chronic post-traumatic stress disorder Active Outpatient Medications (including Supplies): Active Outpatient Medications Status 1) ALBUTEROL 90MCG (CFC-F) 200D ORAL INHL INHALE 2 PUFFS ACTIVE BY MOUTH EVERY 6 HOURS NEEDED FOR BRONCHOSPASM PREVENTION 2) AMOXICILLIN 500MG CAP TAKE FOUR CAPSULES BY MOUTH ONE ACTIVE TIME 30-60 MINUTES BEFORE DENTAL PROCEDURE 3) BUDESONIDE 160/FORMOTER 4.5MCG 120D INH INHALE 2 ACTIVE PUFFS BY MOUTH TWICE DAILY - RINSE MOUTH AFTER USE 4) DICLOFENAC NA 1% TOP GEL APPLY 4 GRAMS TOPICALLY FOUR ACTIVE TIMES A DAY FOR OSTEOARTHRITIS - USE DOSING CARD PROVIDED IN BOX 5) EZETIMIBE 10MG TAB TAKE ONE TABLET BY MOUTH ONCE ACTIVE DAILY TO LOWER CHOLESTEROL 6) METOPROLOL SUCCINATE 25MG SA TAB TAKE ONE TABLET BY ACTIVE MOUTH ONCE DAILY FOR BLOOD PRESSURE/HEART 7) THIAMINE 50MG TAB TAKE ONE TABLET BY MOUTH ONCE DAILY ACTIVE FOR DEFICIENCY IN THIAMINE OR VITAMIN B1 Active Non-VA Medications Status 1) Non-VA ACETAMINOPHEN TAB BY MOUTH ACTIVE 2) Non-VA ASPIRIN 81MG EC TAB 81MG BY MOUTH DAILY ACTIVE 3) Non-VA CHOLECALCIF 50MCG (D3-2,000UNIT) TAB 2000UNIT ACTIVE BY MOUTH DAILY 4) Non-VA FISH OIL 500MG DHA/EPA CAP,ORAL 1200 MG BY ACTIVE MOUTH DAILY 5) Non-VA GLUCOSAMINE/CHONDROITIN CAP/TAB 1 TABLET BY ACTIVE MOUTH DAILY 12 Total Medications Allergies: ATORVASTATIN All medications including those prescribed by outside VA's, community providers, and all OTC meds were reviewed and reconciled with patient to the best of their abilities. This 77 year old MALE is seen today for a comprehensive eye exam Chief Complaint: Mild distance blur OU. Saw Dr. Barrientos last year- had growth removed. OHx: 1. Hydrocystoma left inner canthus 2. Rosacea/MGD OU 3. Combined cataracts OU 4. Refractive error/ Presbyopia OU (-) Pain: (-) EDWARDS: (-) Diplopia: (-) Flashes: (-) Floaters: (-) Amaurosis Fugax/Tia's: (-) Eye Injury: (-) Eye Surgery: (-) TBI FOHx: (-) Glaucoma/ARMD/Blindness (-) Smoker/Length of Time/PPD: Current Rx with last BCVA: OD: +1.00 sph 20/20 OS: +1.00 sph 20/20 Add: +2.50 Comp: +1.50 DVA ( )sc ( x )cc OD: 20/20 OS: 20/20 Pupils: PERRL (-)APD EOMs: SAFE OU, (-)Pain/Diplopia CVF (facial, peripheral): FTFC OU Subjective Refraction: OD: +1.00 sph 20/20 OS: +1.00 sph 20/20 Add: +2.50 Comp: +1.50 All the above performed by student, reviewed by attending Anterior segment: Performed by student, repeated by attending Lids: dermatochalasis OU Conj: white and quiet OU Cornea: clear OU, oily tear film AC: 4x4 OU Iris: flat and clear OU, (-) TID OU Lens: 2+ NS OU, trace ACC OU (-)PXF/PDS OU Tonometry: GAT Performed by student, reviewed by attending * OD 15 mmHg OS 15 mmHg Time: 3:40 PM Last IOP: OD: 17 mmHg OS: 17 mmHg Fundus exam: Dilated: 3:41 PM Dilating Drops: 1GTT 1 % Tropicamide OU & 1GTT 2.5% Phenylephrine OU (Pt. ed. on side effects, dilation warning given and verbal consent obtained) Patient advised not to drive if they feel they have any symptoms which could affect their ability to drive safely. Patient advised not to engage in any activities which could put themselves or others at risk if they feel they have any symptoms which could affect their ability to perform those activities safely. Performed by student, repeated by attending * Vit: syneresis OU C/D: 0.35/0.35 OD, 0.40/0.40 OS Disc: Rim tissue is pink and healthy OU Macula: flat and clear OU, small soft drusen OU PPole: clear OU A/V: 2/3 Vessels: normal caliber OU Periph: flat and intact (-)holes, tears, detachments 360 OU Assessment/Plan: 1. Dry eye syndrome OU - Asymptomatic - Patient educated on today's findings and condition - Monitor 2. Combined cataracts OU - Not visually significant at this time - Pt ed re today's findings and the importance of UV protection - Pt ed cataracts may cause reduction of BCVA and symptoms of glare - RTC sooner if vision declines or interferes with ADLs - Monitor 3. Refractive error, Presbyopia OU - Order new DVO and computer glasses today Return to Clinic 1 year or earlier PRN Patient Education: Reviewed exam findings and answered all questions. /rosio/ KASI GRIFFITH OPTOMETRY STUDENT Signed: 05/07/2023 16:10 /rosio/ Edvin Gibbons OD CHIEF OF OPTOMETRY Cosigned: 05/11/2023 06:31 05/11/2023 ADDENDUM STATUS: COMPLETED I saw this patient in conjunction with the student and agree with stated findings and plan as noted below after reviewing both the history and repeating box elements of the physical exam now. Patient last seen here March 14, 2022 returns today for comprehensive eye examination. His ocular history is significant for rosacea facies with meibomian gland dysfunction and mild dry eye disease as well as early bilateral cataracts and benign cyst left lower lid. Impression: Rosacea facies with meibomian gland dysfunction all 4 lids with mild bilateral dry eye disease. Tear break-up time is somewhat reduced each eye with reduced tear meniscus. He is currently asymptomatic with regard to dry eye symptoms. Hydrocystoma medial aspect left lower lid as previously noted without high risk characteristics remains asymptomatic. Bilateral nuclear sclerotic and cortical cataracts not visually significant at present update glasses today. Plan: Patient education as noted above reviewed exam findings now. Ordering new glasses today. Return in 12 months or sooner if need be. Ophthalmic medication reconciliation: He is currently not taking or prescribed any ocular medications. Medication Reconciliation: Outpatient: Has the patient been taking medications as documented in the EMLR? YES: The patient has been taking medications as documented in the EMLR. Essential Medication List for Review used to complete this medication reconciliation. INCLUDED IN THIS LIST: Alphabetical list of active outpatient prescriptions dispensed from this [facility] (local) and dispensed from another [place] or [facility] facility (remote) as well as inpatient orders [...] whether with a VA or non-VA provider. Medication List: JLV Link Data on this list may not be complete. Please check JLV. Allergies/ADRs (Tool #5) FACILITY ALLERGY/ADR -------- No Remote Allergy/ADR Data available for this patient [facility] ATORVASTATIN Med. Reconciliation (Tool #1) INCLUDED IN THIS LIST: Alphabetical list of active outpatient prescriptions dispensed from this [place] (local) and dispensed from another [place] or [facility] facility (remote) as well as inpatient orders (local pending and active), local clinic medications, locally documented non-VA medications, and local prescriptions that have or been discontinued in the past 90 days. Non-VA Meds Last Documented On: Aug 29, 2021 NOTE The display of VA prescriptions dispensed from another [place] or [facility] facility (remote) is limited to active outpatient prescription entries matched to National Drug File at the originating site and may not include some items such as investigational drugs, compounds, etc. NOT INCLUDED IN THIS LIST: Medications self-entered by the patient into personal health records (i.e. Scheduling Employee Scheduling Software) are NOT included in this list. Non-VA medications documented outside this [place], remote inpatient orders (regardless of status) and remote clinic medications are NOT included in this list. The patient and provider must always discuss medications the patient is taking, regardless of where the medication was dispensed or obtained. Non-VA ACETAMINOPHEN TAB TAKE BY MOUTH OUTPT ALBUTEROL 90MCG (CFC-F) 200D ORAL INHL (Status = Active) INHALE 2 PUFFS BY MOUTH EVERY 6 HOURS NEEDED FOR BRONCHOSPASM PREVENTION Rx# [id number] Last Released: 12/04/22 Qty/Days Supply: 03/10 Rx Expiration Date: 09/03/23 Refills Remainin Indication: FOR BRONCHOSPASM PREVENTION OUTPT AMOXICILLIN 500MG CAP (Status = Active) TAKE FOUR CAPSULES BY MOUTH ONE TIME 30-60 MINUTES BEFORE DENTAL PROCEDURE Rx# [id number] Last Released: 04/30/23 Qty/Days Supply: 01/11 Rx Expiration Date: 05/27/23 Refills Remainin Indication: FOR INFECTION CAUSED BY BACTERIA Non-VA ASPIRIN 81MG EC TAB TAKE ONE TABLET BY MOUTH DAILY OUTPT BUDESONIDE 160/FORMOTER 4.5MCG 120D INH (Status = Active) INHALE 2 PUFFS BY MOUTH TWICE DAILY - RINSE MOUTH AFTER USE Rx# [id number] Last Released: 12/04/22 Qty/Days Supply: 03/10 Rx Expiration Date: 09/03/23 Refills Remainin Non-VA CHOLECALCIF 50MCG (D3-2,000UNIT) TAB TAKE ONE TABLET BY MOUTH DAILY OUTPT DICLOFENAC NA 1% TOP GEL (Status = Active) APPLY 4 GRAMS TOPICALLY FOUR TIMES A DAY FOR OSTEOARTHRITIS - USE DOSING CARD PROVIDED IN BOX Rx# [id number] Last Released: 09/02/22 Qty/Days Supply: Rx Expiration Date: 09/03/23 Refills Remainin Indication: FOR OSTEOARTHRITIS OUTPT EZETIMIBE 10MG TAB (Status = Active) TAKE ONE TABLET BY MOUTH ONCE DAILY TO LOWER CHOLESTEROL Rx# [id number] Last Released: 04/23/23 Qty/Days Supply: Rx Expiration Date: 09/03/23 Refills Remainin Indication: FOR HIGH CHOLESTEROL Non-VA FISH OIL 500MG DHA/EPA CAP,ORAL TAKE 1200 MG BY MOUTH DAILY Non-VA GLUCOSAMINE/CHONDROITIN CAP/TAB TAKE ONE TABLET BY MOUTH DAILY OUTPT METOPROLOL SUCCINATE 25MG SA TAB (Status = Active) TAKE ONE TABLET BY MOUTH ONCE DAILY FOR BLOOD PRESSURE/HEART Rx# [id number] Last Released: 04/23/23 Qty/Days Supply: Rx Expiration Date: 09/03/23 Refills Remainin OUTPT THIAMINE 50MG TAB (Status = Active) TAKE ONE TABLET BY MOUTH ONCE DAILY FOR DEFICIENCY IN THIAMINE OR VITAMIN B1 Rx# [id number] Last Released: 03/18/23 Qty/Days Supply: Rx Expiration Date: 03/11/24 Refills Remainin Indication: FOR DEFICIENCY IN THIAMINE OR VITAMIN B1 SUPPLIES PHARMACY TERMS AND POSSIBLE PATIENT ACTIONS INPT = [place] inpatient order IV = [place] intravenous medication OUTPT = [place] outpatient prescription PHARMACY POSSIBLE PATIENT TERMS EXPLANATION ACTIONS -------- ------ ACTIVE A prescription that can be If you have refills, filled at the local [place] pharmacy. you may request a refill of this prescription from your [place] pharmacy. CLINIC A medication you received during If you have questions a visit to a [place] clinic or about this medication emergency department. contact your [place] healthcare team. DISCONTINUED A prescription your provider has Contact your VA stopped. It is no longer healthcare team if you available to be sent to you or need more of this picked up at the [place] pharmacy medication. window. A prescription which is too old Contact your VA to fill. This does not refer to healthcare team if you the expiration date of the need more of this medication in the container. medication. NON-VA A medication that came from If this medication someplace other than a VA information is pharmacy. This may be a incorrect or out of prescription from either the VA date, please tell your or non VA providers that was VA healthcare team. filled outside the VA. Or, it may be an jdes-rfk-aiznaiy (OTC), herbal, dietary supplements or sample medication. ON HOLD An active prescription that will Contact your VA not be filled until pharmacy pharmacy when you need resolves the issue. more of this medication. PARKED An active prescription that will Contact your VA not be filled until the patient pharmacy when you need requests it. this medication. PENDING This prescription order has been If you have been sent to the pharmacy for review instructed to start and is not ready yet. this medication now, contact your VA pharmacy. SUSPENDED An active prescription that is Contact your VA not scheduled to be filled yet. pharmacy if you need You should receive it before this medication now. you run out. Declines printed copy of medication list now. /rosio/ Edvin Gibbons OD CHIEF OF OPTOMETRY Signed: 05/11/2023 06:34 KASI GRIFFITH [place] [facility]
--- OUTSIDE RECORDS SUMMARY | 2024-02-16 09:07 | XMS_ITS | Encounter Summary ---
Author Name [facility] [facility] [place] [facility] [place] [facility] [place] Address [address] [place] [address] Care Team Providers Care Stone Decorator Name Role Phone SUBHA VELAZQUEZ Primary Care [...] Relationship to Policy Bryson GREGORY PUGA-WN R [place] SPECIAL [facility] GREGORY DIOP Sep 15, 2011 GREGORY PUGA [id number] [phone] PAULA GONZALES [facility] Aug 09, 2017 [id number] PAULA GONZALES [facility] SUPP PL Aug 09, 2017 [id number] [phone] PAULA GONZALES PATIENT MEDICARE (WNR) MEDICARE (M) PART A Nov 10, 2019 PART A [id number] PAULA GONZALES PATIENT MEDICARE (WNR) MEDICARE (M) PART B Apr 09, 2010 PART B [id number] PAULA GONZALES PATIENT MEDICARE (WNR) MEDICARE (M) PART B Apr 09, 2010 PART B [id number] PAULA GONZALES PATIENT MEDICARE (WNR) MEDICARE (M) PART B Apr 09, 2010 PART B [id number] PAULA GONZALES PATIENT MEDICARE (WNR) MEDICARE (M) PART A Nov 09, 2009 PART A [id number] PAULA GONZALES PATIENT MEDICARE (WNR) MEDICARE (M) PART A Nov 09, 2009 PART A [id number] PAULA GONZALES PATIENT Selected Encounter This section includes the information on record at [place] for the Encounter. Date/Time Encounter Type Encounter Description Reason Provider Source Apr 02, 2023 03:00 PM HEARING AID REPAIR/MODIFYIN G AUDIOLOGY ICD-10-CM Z46.1 Encounter for fitting and adjustment of hearing aid MAGALYS MONTESINOS [facility] Encounter Template Text not used by [place] Assessments - Encounter Diagnoses This section includes the primary and secondary diagnoses documented for the Encounter. Date/Time Primary/Secondary Diagnosis Diagnosis Name Provider Source Apr 02, 2023 03:20 PM PRIMARY Encounter for fitting and adjustment of hearing aid [facility] Apr 02, 2023 03:20 PM SECONDARY Sensorineural hearing loss, bilateral [facility] Plan of Treatment: Future Appointments (+ 6 months) and Future Tests (+/- 45 days) The Plan of Treatment section includes future care activities for the patient from all [place] treatmentfacilities. This section includes future appointments and future orders which are active, pending or scheduled. Future Appointments This section includes appointments that were scheduled to occur 6 months from the date of the Encounter, up to a maximum of 20 appointments. The data comes from all [place] treatment facilities. Appointment Date/Time Appointment Type Appointme nt Facility Name Apr 07, 2023 01:00 PM AMBULATORY [place]RY [place] [facility] [place] [facility] Apr 17, 2023 11:00 AM [facility] Apr 21, 2023 09:30 AM [place] [place] [facility] [place] [facility] Apr 22, [...] AMBULATORY - NONE [facility] [place] [facility] Jun 09, 2023 09:30 AM AMBULATORY [facility]IC[facility] [place] [facility] Jun 09, 2023 09:31 AM [facility] June 30, 2023 01:00 PM AMBULATORY - PS[facility]CHIATRY [facility] [place] [facility] Jul 28, 2023 01:00 PM AMBULATORY - PS[facility]CHIATRY [facility] [place] [facility] Aug 04, 2023 01:00 PM AMBULATORY - [facility]ATRY [facility] [place] [facility] Aug 11, 2023 09:00 AM AMBULATORY - MEDICINE [facility] [place] [facility] Aug 11, 2023 01:00 PM AMBULATORY - PS[place]IATRY [facility] [place] [facility] Lab Results: +/- 30 days [...] analytical performance characteristics have been determined by [employer] [place], [place]. It has not been cleared or approved by the U.S. Food and Drug Administration. This assay has been validated pursuant to the CLIA regulations and is used for clinical purposes. Test Performed by [facility], [facility], [address] [place] [address] Chris Alba M.D., Ph.D., Director of Laboratories , CLIA [id number] TEST PERFORMED AT: , Ordering Provider: MIYA LAU Report Released Date/Time: Feb 04, 2023 02:43 PM Reporting Lab: [address] [address] Performing Lab: [facility] [address] [address] VITAMIN B-1 (THIAMINE)-(Q U) 8 nmol/L 8-30 Mar 04, 2023 08:57 AM [facility] SYPHILIS ABS W/RFLX Specimen Type: SERUM Comment: No laboratory evidence of syphilis infection. If recent exposure is suspected, re-draw sample in 2-4 weeks and repeat algorithm. Testing performed by T. pallidum specific immunoassay. Ordering Provider: MIYA LAU Report Released Date/Time: Feb 04, 2023 02:43 PM Reporting Lab: [facility] [address] [facility] [address] Performing Lab: [facility] [address] [facility] [address] SYPHILIS ABS W/RFLX Non Reactive Non Reactive Mar 04, 2023 08:57 AM [facility] LIVER FUNCTION Specimen Type: SERUM No comment entered. Ordering Provider: MIYA LAU Report Released Date/Time: Feb 04, 2023 02:43 PM Reporting Lab: [facility] [address] [facility] [address] Performing Lab: [facility] [address] [facility] [address] PROTEIN,TOTAL 7.3 g/dL 6.0-8.3 ALBUMIN 4.0 g/dL 3.5-5.0 ALKALINE PHOSPHATASE 109 U/L 40-150 AST 19 U/L 5-34 ALT 27 U/L BILIRUBIN, TOTAL 1.0 mg/dL 0.2-1.2 Mar 04, 2023 08:57 AM [facility] VITAMIN B12 Specimen Type: SERUM No comment entered. Ordering Provider: MIYA LAU Report Released Date/Time: Feb 04, 2023 02:43 PM Reporting Lab: [address] [address] Performing Lab: [address] [address] VITAMIN B12 366 pg/mL 200-900 Mar 04, 2023 08:57 AM [facility] BASIC METABOLIC PANEL (fasting) Specimen Type: SERUM No comment entered. Ordering Provider: MIYA LAU Report Released Date/Time: Feb 04, 2023 02:43 PM Reporting Lab: [address] [address] Performing Lab: [address] [address] UREA NITROGEN 22 mg/dL 7-25 GLUCOSE 84 mg/dL 65-100 SODIUM 140 mmol/L 135-145 POTASSIUM 4.6 mmol/L 3.5-5.0 CHLORIDE 104 mmol/L 100-110 CO2 25 meq/L 20-30 CREATININE, Serum 1.01 mg/dL 0.50-1.40 eGFR(CKD-EPI 2020) 76 mL/min >60 Mar 04, 2023 08:57 AM [facility] LIPID PANEL FASTING Specimen Type: SERUM No comment entered. Ordering Provider: MIYA LAU Report Released Date/Time: Feb 04, 2023 02:43 PM Reporting Lab: [facility] [place] [facility] [address] [facility] [address] Performing Lab: [facility] [address] [facility] [address] CHOLESTEROL 194 mg/dL TRIGLYCERIDE 126 mg/dL 0-150 LDL calculated 126 mg/dL 0-129 CHOL/HDL 4.5 HDL CHOLESTEROL 43 mg/dL 40-60 Mar 04, 2023 08:57 AM [facility] VITAMIN D (25-OH) Specimen Type: SERUM No comment entered. Ordering Provider: MIYA LAU Report Released Date/Time: Feb 04, 2023 02:43 PM Reporting Lab: [facility]N [facility] [address] [facility] [address] Performing Lab: [facility]ENTERUSE[address] [address] VITAMIN D (25-OH) 42 ng/mL 20-50 Mar 04, 2023 08:57 AM [facility] MAGNESIUM Specimen Type: SERUM No comment entered. Ordering Provider: MIYA LAU Report Released Date/Time: Feb 04, 2023 02:43 PM Reporting Lab: [facility] [address] [facility] [address] Performing Lab: [facility]ITALR[facility]N [facility]ENTERUSETS [address] [address] MAGNESIUM 2.1 mg/dL 1.6-2.6 Mar 04, 2023 08:57 AM [facility]USEE[facility] CALCIUM Specimen Type: SERUM No comment entered. Ordering Provider: MIYA LAU Report Released Date/Time: Feb 04, 2023 02:43 PM Reporting Lab: [facility]ITALRSHELBY [facility]ENTERTRN [facility] [address] [facility] [address] Performing Lab: [facility]ITALRUSA [facility]ITALN [facility]ENTERUSETS [address] [address] CALCIUM 9.0 mg/dL 8.5-10.2 Mar 04, 2023 08:57 AM [facility]ENTERUSEELL[facility] TSH Specimen Type: SERUM No comment entered. Ordering Provider: MIYA LAU Report Released Date/Time: Feb 04, 2023 02:43 PM Reporting Lab: [facility] [address] [facility] [address] Performing Lab: [facility]OSPITALRUSA [facility]OS[facility]ITALN [facility]ENTERUSETS [address] [address] TSH 1.13 u[IU]/mL 0.35-5.00 Mar 04, 2023 08:57 AM [facility] CBC AND DIFF (AUTO) Specimen Type: BLOOD No comment entered. Ordering Provider: MIYA LAU Report Released Date/Time: Feb 04, 2023 02:43 PM Reporting Lab: [facility] [address] [facility] [address] Performing Lab: [facility] CENTERUSETS [address] [address] WBC 5.82 10*3/uL 4.50-11.00 RBC 5.29 10*6/uL 4.23-5.66 HGB 16.4 g/dL 12.8-17 HCT 49.9 39.2-50.4 MCV 94.3 fL 82-99 MCHC 32.9 g/dL 30.8-35.1 PLT 248 10*3/uL 140-360 RDW-CV 13.6 12.0-16.0 [place], Abs 1.09 10*3/uL 0.30-1.10 MCH 31.0 pg 26.2-32.6 Neut % 57.3 43.7-75.8 Lymph % 19.9 14.0-42.3 [place] % 18.7 H 5.1-13.7 Eos % 3.3 [...] and tobacco- related health factors from the [place] facility where the Encounter took place. Current Smoking Status This section includes the most current smoking, or tobacco-related health factor, from the [place] facility where the Encounter took place. Date/Time Current Smoking Status Comment Facil ity June 17, 2022 01:00 PM VA-TOBACCO NEVER USED [place] [facility] [place] [facility] Tobacco Use History This section includes a history of the smoking, or tobacco-related health factors, that were collected on or before the date of the Encounter. The data comes from the [place] facility where the Encounter took place. Date/Time Smoking Status/Tobacco Use Comment F acility Jul 16, 2021 01:00 PM VA-TOBACCO NEVER USED [place] [facility] [place] [facility] July 03, 2020 01:00 PM VA-TOBACCO NEVER USED [facility] [place] [facility] Jul 11, 2019 02:57 PM VA-TOBACCO NEVER USED [facility] [place] [facility] Jan 14, 2019 08:50 AM VA-TOBACCO NEVER USED [place] [facility] [place] [facility] Mar 04, 2018 01:20 PM VA-TOBACCO NEVER USED [facility] [place] [facility] May 27, 2017 11:01 AM LIFETIME NON-TOBACCO USER [place] [facility] [place] [facility] May 20, 2016 10:51 AM LIFETIME NON-TOBACCO USER [place] [facility] [place] [facility] May 03, 2015 01:13 PM LIFETIME NON-TOBACCO USER [place] [facility] [place] [facility] Advance Directives: All historical and current Section Date Range: From patient's date of to the date document was created. This section includes ALL of a patient's completed or amended [place] Advance and Rescinded Directives. The entries below indicate that a directive exists for the patient, but an actual copy is not included with this document. The data comes from all [place] facilities. Date Advance Directives Provider Source Nov 08, 2019 ADVANCE DIRECTIVE MIGDALIA MILES [place] [facility] [place] [facility] Apr 14, 2019 ADVANCE DIRECTIVE RAFAL BULLARD [facility] Encounter Notes: All associated encounter notes This section contains the clinical notes associated to the Encounter. Date/Time Encounter Note(s) Provider Source Apr 02, 2023 07:51 AM AUDIOLOGY E & M NO TE: [facility] TITLE: AUDIOLOGY CLINIC STANDARD TITLE: AUDIOLOGY E & M NOTE DATE OF NOTE: APR 02, 2023@07:51 ENTRY DATE: APR 02, 2023@07:51:34 AUTHOR: MAGALYS MONTESINOS COSIGNER: URGENCY: STATUS: COMPLETED Dx CODE: Z46.1-Encounter for Fitting/Adjusting Hearing Aid(s); H90.3- Sensorineural Hearing Loss, Bilateral APPOINTMENT TYPE: Hearing Aid Maintenance Check HISTORY/BACKGROUND: The patient was seen for a hearing aid maintenance check appointment, unaccompanied. He comes in today with the left 2019 ReSound Linx3D BTE requesting a new thin tube. HEARING AID CHECK: Thin tube replaced, biocheck good. Per request, a battery order was placed. PLAN/RECOMMENDATION(S): 1. Follow up as needed. 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
--- OUTSIDE RECORDS SUMMARY | 2024-02-16 09:08 | XMS_ITS | Encounter Summary ---
Author Name Department of [facility] [place] Organization [place] Address [address] [place] [address] Care Team Providers Care Lehr Attendant Name Role Phone SUBHA VELAZQUEZ Primary Care [...] Relationship to Policy Bryson GREGORY PUGA-WN R [place] SPECIAL CLASS GREGORY DIOP Sep 15, 2011 GREGORY PUGA [id number] PAULA FENG PATIENT [facility] MEDICARE SUPPLEMEN [facility] Aug 09, 2017 [id number] [phone] PAULA FENG PATIENT [facility] MEDIC[facility] SUPPLEMEN [facility] SUPP [address] Aug 09, 2017 [id number] [phone] PAULA FENG PATIENT MEDICARE (WNR) MEDICARE (M) PART A Nov 10, 2019 PART A [id number] PAULA FENG PATIENT MEDICARE (WNR) MEDICARE (M) PART B Apr 09, 2010 PART B [id number] PAULA FENG PATIENT MEDICARE (WNR) MEDICARE (M) PART B Apr 09, 2010 PART B [id number] PAULA FENG PATIENT MEDICARE (WNR) MEDICARE (M) PART B Apr 09, 2010 PART B [id number] PAULA FENG PATIENT MEDICARE (WNR) MEDICARE (M) PART A Nov 09, 2009 PART A [id number] PAULA FENG PATIENT MEDICARE (WNR) MEDICARE (M) PART A Nov 09, 2009 PART A [id number] PAULA FENG PATIENT Selected Encounter This section includes the information on record at NE for the Encounter. Date/Time Encounter Type Encounter Description Reason Provider Source May 19, 2023 01:00 PM PSYTX W PT 45 MINUTES [facility] - IND ICD-10-CM F43.10 Post-traumatic stress disorder, unspecified NATHAN KIRK Mikhail Encounter Template Text not used by [place] Assessments - Encounter Diagnoses This section includes the primary and secondary diagnoses documented for the Encounter. Date/Time Primary/Secondary Diagnosis Diagnosis Name Provider Source May 22, 2023 08:58 AM PRIMARY Post-traumatic stress disorder, unspecified [facility] Plan of Treatment: Future Appointments (+ 6 months) and Future Tests (+/- 45 days) The Plan of Treatment section includes future care activities for the patient from all [place] treatmentfacilities. This section includes future appointments and future orders which are active, pending or scheduled. Future Appointments This section includes appointments that were scheduled to occur 6 months from the date of the Encounter, up to a maximum of 20 appointments. The data comes from all [place] treatment facilities. Appointment Date/Time Appointment Type Appointme nt Facility Name May 21, 2023 02:00 PM AMBULATORY - MEDICINE [facility] [place] [facility] May 26, 2023 01:00 PM AMBULATORY - PSYCHIATRY [place] [facility] [place] [facility] Jun 02, 2023 01:00 PM AMBULATORY - PSYCHIATRY [place] [facility] [place] [facility] Jun 05, 2023 09:00 AM AMBULATORY - NONE [place] [facility] [place] [facility] Jun 09, 2023 09:30 AM AMBULATORY - MEDICINE [facility] [place] [facility] Jun 09, 2023 09:31 AM AMBULATORY - MEDICINE [facility] [place] [facility] June 30, 2023 01:00 PM AMBULATORY - PSYCHIATRY [facility] [place] [facility] Jul 28, 2023 01:00 PM AMBULATORY - PSYCHIATRY [facility] [place] [facility] Aug 04, 2023 01:00 PM AMBULATORY - PSYCHIATRY [facility] [place] [facility] Aug 11, 2023 09:00 AM AMBULATORY - MEDICINE [facility] [place] [facility] Aug 11, 2023 01:00 PM AMBULATORY - PSYCHIATRY [facility] [place] [facility] Aug 17, 2023 10:00 AM AMBULATORY - REHAB MEDICIN E [facility] [place] [facility] Sep 01, 2023 01:00 PM AMBULATORY - PSYCHIATRY [facility] [place] [facility] Sep 08, 2023 01:00 PM AMBULATORY - PSYCHIATRY [facility] [place] [facility] Sep 15, 2023 01:00 PM AMBULATORY - PSYCHIATRY [facility] [place] [facility] Sep 22, 2023 01:00 PM AMBULATORY - PSYCHIATRY [facility] [place] [facility] Sep 24, 2023 09:00 AM AMBULATORY - MEDICINE [facility] [place] [facility] Sep 24, 2023 10:30 AM AMBULATORY - MEDICINE [facility] [place] [facility] Sep 24, 2023 11:30 AM AMBULATORY - REHAB MEDICIN E [facility] [place] [facility] Sep 25, 2023 01:00 PM AMBULATORY - MEDICINE [facility] [place] [facility] Active, Pending, and Scheduled Orders This section includes a listing of several types of active, pending, and scheduled orders, including clinic medications orders, diagnostic test orders, procedure orders and consult orders; where the start date of the order is 45 days before the date of the Encounter or 45 days after the date of theEncounter. The data comes from all [place] treatment facilities. Test Date/Time Test Type Test Details Facility Name May 21, 2023 12:00 AM Laboratory - Chemi bryannay Order HCV RNA PCR PANEL(WHV) BLOOD (SST-GOLD) SERUM SP [facility] [place] [facility] Social History: Smoking Status (Most current) and Tobacco Use (All prior to encounter date) This section includes the most current, and the historical, smoking and tobacco- related health factors from the NE facility where the Encounter took place. Current Smoking Status This section includes the most current smoking, or tobacco-related health factor, from the [place] facility where the Encounter took place. Date/Time Current Smoking Status Comment Louisa ity May 19, 2023 01:00 PM VA-TOBACCO NEVER USED NE [facility] [place] [facility] Tobacco Use History This section includes a history of the smoking, or tobacco-related health factors, that were collected on or before the date of the Encounter. The data comes from the NE facility where the Encounter took place. Date/Time Smoking Status/Tobacco Use Comment Gisele accynthia June 17, 2022 01:00 PM VA-TOBACCO NEVER USED [facility] [place] [facility] Jul 16, 2021 01:00 PM VA-TOBACCO NEVER USED [facility] [place] [facility] July 03, 2020 01:00 PM VA-TOBACCO NEVER USED [facility] [place] [facility] Jul 11, 2019 02:57 PM VA-TOBACCO NEVER USED [facility] [place] [facility] Jan 14, 2019 08:50 AM VA-TOBACCO NEVER USED NE [facility] [place] [facility] Mar 04, 2018 01:20 PM VA-TOBACCO NEVER USED NE [facility] [place] [facility] May 27, 2017 11:01 AM LIFETIME NON-TOBACCO USER [facility] [place] [facility] May 20, 2016 10:51 AM LIFETIME NON-TOBACCO USER [facility] [place] [facility] May 03, 2015 01:13 PM LIFETIME NON-TOBACCO USER [place] [facility] [place] [facility] Advance Directives: All historical and current Section Date Range: From patient's date of to the date document was created. This section includes ALL of a patient's completed or amended VA Advance and Rescinded Directives. The entries below indicate that a directive exists for the patient, but an actual copy is not included with this document. The data comes from all NE facilities. Date Advance Directives Provider Source Nov 08, 2019 ADVANCE DIRECTIVE MIGDALIA MILES NE CNTRL [facility] Apr 14, 2019 ADVANCE DIRECTIVE RAFAL BULLARD NE C NTR[facility] [place] Radiology Reports: +/- 30 days of the [...] the Encounter. The data comes from all [place] treatment facilities. Date/Time Radiology Report Provider Source Jun 05, 2023 08:42 AM [employer]: PRASANTH FENG [id number] -[id number] M Exm Date: JUN 05, 2023@08:42 Req Phys: SUBHA VELAZQUEZ Loc: CWM/NO/PACT EIGHT (Req'g Loc) Img Loc: ULTRASOUND Service: Unknown (Case [id number] COMPLETE) [employer] ABDOMEN [place] ([place] Detailed) CPT:77098 Reason for Study: h/o hep c Clinical History: Report Status: Verified Date Reported: JUN 05, 2023 Date Verified: JUN 05, 2023 Cripple Chaser E-Sig: Report: [employer] ABDOMEN [employer] HISTORY: 77-year-old male with a history of hepatitis C. COMPARISON: None. TECHNIQUE: Sonographic imaging of the right and left upper quadrants was performed at the local [place] facility. 29 still images were received by the NE National Teleradiology Program (NTP) for interpretation. FINDINGS: [...] No ascites. READING PHYSICIAN: Han Godinez MD -[id number] 06/05/2023 16:18 EDT [facility] National Teleradiology Program [phone] (For Medical Practitioner Use Only) Attention Patients / Veterans: If you have questions or concerns about these test results, please contact your ordering provider or primary care team. Primary Diagnostic Code: NO ALERT REQUIRED Primary Interpreting Staff: RADIOLOGY,OUTSIDE SERVICE, Staff Physician / RADIOLOGY,OUTSIDE SERVICE [place] [facility] [place] [facility] Encounter Notes: All associated encounter notes This section contains the clinical notes associated to the Encounter. Date/Time Encounter Note(s) Provider Source May 19, 2023 01:12 PM MENTAL HEALTH DIAG NOSTIC STUDY NOTE: LOCAL TITLE: MENTAL HEALTH DIAGNOSTIC STUDY STANDARD TITLE: MENTAL HEALTH DIAGNOSTIC STUDY NOTE DATE OF NOTE: MAY 19, 2023@13:12:57 ENTRY DATE: MAY 19, 2023@13:12:57 AUTHOR: NATHAN KIRK COSIGNER: URGENCY: STATUS: COMPLETED These assessments were completed by PRASANTH FENG via provider direct entry on 05/19/2023 1:12:10 PM. PTSD CHECKLIST (PCL-5) - WEEKLY Patient reported being bothered by the following over the past week: 1. Disturbing memories: A little bit 2. Disturbing dreams: Not at all 3. Re-experiencing events: A little bit 4. Cued distress: A little bit 5. Cued physical symptoms: Not at all 6. Avoiding internal reminders: Not at all 7. Avoiding external reminders: Not at all 8. Trouble with recall: Not at all 9. Negative beliefs: A little bit 10. Blaming self/others: Not at all 11. Negative feelings: Not at all 12. Loss of interest: A little bit 13. Feeling distant from others: Not at all 14. Feeling numb: A little bit 15. Feeling irritable: Not at all 16. Reckless behavior: Not at all 17. Being super-alert : Not at all 18. Feeling easily startled: Not at all 19. Difficulty concentrating: A little bit 20. Trouble sleeping: Moderately PCL-5 total score = 9 This measure assesses an individual's perception of [...] DSM-5, is recommended to confirm diagnostic status. PCL-5 Weekly Total Score (past 180 days): 05/19/2023 9 04/07/2023 3 /rosio/ NATHAN KIRK, Ph.D Clinical Psychologist Signed: 05/19/2023 20:44 NATHAN KIRK [place] [facility] [place] [facility] May 19, 2023 01:02 PM TELEHEALTH NOTE: LOCAL TITLE: NE flux - neutrinity PSYCHOLOGY NOTE STANDARD TITLE: TELEHEALTH NOTE DATE OF NOTE: MAY 19, 2023@13:02 ENTRY DATE: MAY 19, 2023@13:02:14 AUTHOR: NATHAN KIRK EXP COSIGNER: URGENCY: STATUS: COMPLETED NE [employer] Connect (VVC) Standard Documentation VVC Clinician Resources Only: E911 (Emergency Call Relay Center): [phone] National Veterans Crisis Line - 988 then press #1. [facility] Suicide Coordinator [phone], Ext. [phone]; Back-up Ext. [phone] [place] Police, [place] JOSHUA [phone] Introduction: Visit is being conducted by [employer]. identified with 2 identifiers: [X] Full Name [X] Date of [ ] VA ID Card Emergency Plan: confirmed and/or provided the following information in case of emergency or technology failure. PATIENT PHONE - PHONE NUMBER [CELLULAR] - Is patient phone number correct, if not, enter below: Milan's phone number: PRASANTH FENG [address], [place], [address] 's present location and address for appointment: [address] [place] [address] 's emergency contact name and phone number: Layla Feng Milan reported that location is private and safe: Yes Informed Consent: Milan informed of the risks and benefits of Telehealth video care. has the right to refuse video services. If refuses video visit, a [id number] visit will be scheduled. Milan verbalized consent for this video visit: Yes Milan provided consent for any other persons present [...] court of law and presented to a youth court judge), and DOD access for active-duty service members. Provided Suicide Prevention Hotline number, and other contact numbers as necessary. VISIT DURATION: 45 Minutes DIAGNOSES: PTSD [employer] STATEMENT OF GOALS/CONCERNS: Reduce irritability, avoidance, work on current challenges (including medical issues, particularly, cancer diagnosis), relationship issues, increase. meaningful activities and remain connected with people he is close to. SESSION FOCUS: Session began with completion and review of the PCL-5 (Score: 9). Milan reported doing well with no problematic symptoms this week. However, he detailed frustrations and concerns regarding medical challenges, and stated that handling his medical care/medical claims is an arduous and time consuming process. Discussed the importance of finding balance in his life and the impact on his health and wellness, overall. 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 Milan agreed that taking time for these things would make a huge difference in his quality of life. The remainder of the session focused on exploring specific activities Milan can engage in now, including, returning to jehovah's witness as it has always been meaningful to him, have coffee with a friend on a regular basis, consider making maple sugar during the season, go fishing, and spend more time with his adult children. Milan shared that he will continue to be mindful of balance in his life. INTERVENTIONS: Psychotherapeutic Interventions: Limit news and triggering television programs, Increase meaningful activities, focus on the things [...] PLAN FOR FOLLOW-UP: Next session planned for: 05/26/23 at 1:00pm Completed Clinical Reminder: Tobacco Use Screening: The patient has never used tobacco. PCT Psychotherapy Tracking Today's psychotherapy session was part of a standardized episode of Other PTSD Psychotherapy (e.g. supportive therapy): Other: Supportive Therapy Measurement Based Care (MBC): MBC Act Following discussion of 's reported outcomes, we discussed the impact on treatment goals. As a result the treatment plan will remain the same. /rosio/ NATHAN KIRK, Ph.D Clinical Psychologist Signed: 05/22/2023 08:58 NATHAN KIRK [facility]
--- OUTSIDE RECORDS SUMMARY | 2024-02-16 09:08 | XMS_ITS | Encounter Summary ---
Author Name [facility] of [facility] [place] Organization [facility] of [place] [place] Address [address] [place] [address] Care Team Providers Care Meat Apprentice Name Role Phone SUBHA VELAZQUEZ Primary Care [...] GREGORY DIOP Sep 15, 2011 GREGORY PUGA [id number] [phone] PAULA GONZALES PATIENT [facility] MEDICARE SUPPLEMEN [facility] Aug 09, 2017 [id number] PAULA GONZALES PATIENT [facility] [place] [facility] MEDICARE SUPPLEMEN [facility] SUPP PL Aug 09, 2017 [id number] PAULA GONZALES PATIENT MEDICARE (WNR) MEDICARE (M) PART A Nov 10, 2019 PART A [id number] PAULA GONZALES PATIENT MEDICARE (WNR) MEDICARE (M) PART B Apr 09, 2010 PART B [id number] PAULA GONZALES PATIENT MEDICARE (WNR) MEDICARE (M) PART B Apr 09, 2010 PART B [id number] PAULA GONZALES PATIENT MEDICARE (WNR) MEDICARE (M) PART B Apr 09, 2010 PART B [id number] PAULA GONZALES PATIENT MEDICARE (WNR) MEDICARE (M) PART A Nov 09, 2009 PART A [id number] PAULA GONZALES PATIENT MEDICARE (WNR) MEDICARE (M) PART A Nov 09, 2009 PART A [id number] PAULA GONZALES PATIENT Selected Encounter This section includes the information on record at OR for the Encounter. Date/Time Encounter Type Encounter Description Reason Provider Source May 19, 2023 11:11 AM [employer] TELEPHONE/MEDICINE ICD-10-CM G47.39 Other sleep apnea PATRICE SRIVASTAVA Mikhail Encounter Template Text not used by [place] Assessments - Encounter Diagnoses This section includes the primary and secondary diagnoses documented for the Encounter. Date/Time Primary/Secondary Diagnosis Diagnosis Name Provider Source May 19, 2023 11:11 AM PRIMARY Other sleep apnea PATRICE SRIVASTAVA [facility] Plan of Treatment: Future Appointments (+ 6 months) and Future Tests (+/- 45 days) The Plan of Treatment section includes future care activities for the patient from all [place] treatmentfacilities. This section includes future appointments and [...] - MEDICINE [place] C [facility] [place] [facility] May 26, 2023 01:00 PM AMBULATORY - PSYCHIATRY [place] [facility] [place] [facility] Jun 02, 2023 01:00 PM AMBULATORY - PSYCHIATRY [place] [facility] [place] [facility] Jun 05, 2023 09:00 AM AMBULATORY - NONE [place] [facility] [place] [facility] Jun 09, 2023 09:30 AM AMBULATORY - MEDICINE [facility] [place] [facility] Jun 09, 2023 09:31 AM AM[facility]IC[facility] [place] [place] [facility] June 30, 2023 01:00 PM AMBULATORY - PSYCHIATRY [facility] [place] [facility] Jul 28, 2023 01:00 PM AMBULATORY - PSYCHIATRY [facility] [place] [facility] Aug 04, 2023 01:00 PM AMBULATORY - PSYCHIATRY [facility] [place] [facility] Aug 11, 2023 09:00 AM AMBULATORY - MEDICINE [facility] [place] [facility] Aug 11, 2023 01:00 PM AMBULATORY - PSYCHIATRY [facility] [place] [facility] Aug 17, 2023 10:00 AM AMBULATORY - REHAB MEDICIN E [facility] [place] [facility] Sep 01, 2023 01:00 PM AMBULATORY - PSYCHIATRY [facility] [place] [facility] Sep 08, 2023 01:00 PM AMBULATORY - PSYCHIATRY [facility] [place] [facility] Sep 15, 2023 01:00 PM AMBULATORY - PSYCHIATRY [facility] [place] [facility] Sep 22, 2023 01:00 PM AMBULATORY - PSYCHIATRY [facility] [place] [facility] Sep 24, 2023 09:00 AM AMBULATORY - MEDICINE [facility] [place] [facility] Sep 24, 2023 10:30 AM AMBULATORY - MEDICINE [facility] [place] [facility] Sep 24, 2023 11:30 AM AMBULATORY - REHAB MEDICIN E [facility] [place] [facility] Sep 25, 2023 01:00 PM AMBULATORY - MEDICINE [facility] [place] [facility] Active, Pending, and Scheduled Orders This [...] (SST-GOLD) SERUM SP [facility] [place] [facility] Social History: Smoking Status (Most current) [...] 19, 2023 01:00 PM VA-TOBACCO NEVER USED [place] [facility]TRL [facility] [place] [facility] Tobacco Use History This section includes a history of the smoking, or tobacco-related health factors, that were collected on or before the date of the Encounter. The data comes from the [place] facility where the Encounter took place. Date/Time Smoking Status/Tobacco Use Comment Gisele accynthia June 17, 2022 01:00 PM VA-TOBACCO NEVER USED VA [facility] [place] [facility] Jul 16, 2021 01:00 PM VA-TOBACCO NEVER USED [place] [facility] [place] [facility] July 03, 2020 01:00 PM VA-TOBACCO NEVER USED [facility] [place] [facility] Jul 11, 2019 02:57 PM VA-TOBACCO NEVER USED [facility] [place] [facility] Jan 14, 2019 08:50 AM VA-TOBACCO NEVER USED [place] [facility] [place] [facility] Mar 04, 2018 01:20 PM VA-TOBACCO NEVER USED [facility] [place] [facility] May 27, 2017 11:01 AM LIFETIME NON-TOBACCO USER [facility] [place] [facility] May 20, 2016 10:51 AM LIFETIME NON-TOBACCO USER [facility] [place] [facility] May 03, 2015 01:13 PM LIFETIME NON-TOBACCO USER [facility] [place] [facility] Advance Directives: All historical and current [...] ADVANCE DIRECTIVE MIGDALIA MILES OR CNTRL W[facility]N [facility] Apr 14, 2019 ADVANCE DIRECTIVE RAFAL BULLARD OR C NTRL [facility] Radiology Reports: +/- 30 days of [...] the Encounter. The data comes from all [place] treatment facilities. Date/Time Radiology Report Provider Source Jun 05, 2023 08:42 AM [employer] ABDOMEN LTD: JANETPRASANTH Mayo [id number] -[id number] M Exm Date: JUN 05, 2023@08:42 Req Phys: SUBHA VELAZQUEZ Loc: CWM/NO/PACT EIGHT (Req'g Loc) Img Loc: ULTRASOUND Service: Unknown (Case [id number] COMPLETE) [employer] ABD[employer] ([place] Detailed) CPT:88209 Reason for Study: h/o hep c Clinical History: Report Status: Verified Date Reported: JUN 05, 2023 Date Verified: JUN 05, 2023 Ambulance Operations Supervisor E-Sig: Report: [employer] ABDOMEN [place] HISTORY: 77-year-old male with a history of hepatitis C. COMPARISON: None. TECHNIQUE: Sonographic imaging of the right and left upper quadrants was performed at the local [place] facility. 29 still images were received by the [place] National Teleradiology Program (NTP) for interpretation. FINDINGS: [...] No ascites. READING PHYSICIAN: Han Godinez MD -[id number] 06/05/2023 16:18 EDT [facility] National Teleradiology Program [phone] (For Medical Practitioner Use Only) Attention Patients / Veterans: If you have questions or concerns about these test results, please contact your ordering provider or primary care team. Primary Diagnostic Code: NO ALERT REQUIRED Primary Interpreting Staff: RADIOLOGY,OUTSIDE SERVICE, Staff Physician / RADIOLOGY,OUTSIDE SERVICE [facility] Encounter Notes: All associated encounter notes This section contains the clinical notes associated to the Encounter. Date/Time Encounter Note(s) Provider Source May 19, 2023 11:11 AM RESPIRATORY THERAP Y NOTE: LOCAL TITLE: RESPIRATORY THERAPY NOTE(BLANK) STANDARD TITLE: RESPIRATORY THERAPY NOTE DATE OF NOTE: MAY 19, 2023@11:11 ENTRY DATE: MAY 19, 2023@11:12:10 AUTHOR: PATRICE SRIVASTAVA EXP COSIGNER: URGENCY: STATUS: COMPLETED Telephone Coding and Documentation: Diagnosis: Sleep Apnea Actual time spent with Patient via telephone: 15 minutes. diagnosed with sleep apnea called due to poor AirView data. [place] called stating he is having difficulty tolerating full face mask and is requesting nasal pillows. Supplies will be sent via [facility]. /rosio/ PATRICE SRIVASTAVA RESPIRATORY THERAPIST Signed: 05/19/2023 16:15 PATRICE SRIVASTAVA [facility]
--- OUTSIDE RECORDS SUMMARY | 2024-02-16 09:08 | XMS_ITS | Encounter Summary ---
Author Name [facility] [place] Address [address] [place] [address] Care Team Providers Care Customer Support Analyst Name Role Phone SUBHA VELAZQUEZ Primary Care [...] GREGORY DIOP Sep 15, 2011 GREGORY PUGA [id number] PAULA GONZALES PATIENT [facility] [place] MEDICARE SUPPLEMEN [facility] Aug 09, 2017 [id number] PAULA GONZALES PATIENT [facility] [place] MEDICARE SUPPLEMEN MARIA ELENA [facility] AGENC Y SUPP [address] Aug 09, 2017 [id number] PAULA GONZALES PATIENT MEDICARE (WNR) MEDICARE (M) PART A Nov 10, 2019 PART A [id number] PAULA GONZALES PATIENT MEDICARE (WNR) MEDICARE (M) PART B Apr 09, 2010 PART B [id number] PAULA GONZALES PATIENT MEDICARE (WNR) MEDICARE (M) PART B Apr 09, 2010 PART B [id number] PAULA GONZALES PATIENT MEDICARE (WNR) MEDICARE (M) PART B Apr 09, 2010 PART B [id number] PAULA GONZALES PATIENT MEDICARE (WNR) MEDICARE (M) PART A Nov 09, 2009 PART A [id number] PAULA GONZALES PATIENT MEDICARE (WNR) MEDICARE (M) PART A Nov 09, 2009 PART A [id number] PAULA GONZALES PATIENT Selected Encounter This section includes the information on record at [place] for the Encounter. Date/Time Encounter Type Encounter Description Reason Provider Source Jun 03, 2023 01:39 PM COLLJ & INTERPJ DATA EA 30 D TELEPHONE/MEDICINE ICD-10-CM G47.39 Other sleep apnea PHILLIP GILL [facility] Encounter Template Text not used by [place] Assessments - Encounter Diagnoses This section includes the primary and secondary diagnoses documented for the Encounter. Date/Time Primary/Secondary Diagnosis Diagnosis Name Provider Source Jun 03, 2023 01:39 PM PRIMARY Other sleep apnea PHILLIP GILL [facility] Plan of Treatment: Future Appointments (+ [...] Date/Time Appointment Type Appointme nt Facility Name Jun 05, 2023 09:00 AM AMBULATORY - NONE [place] [facility] [place] [facility] Jun 09, 2023 09:30 AM AMBULATORY - MEDICINE [place] [facility] [place] [facility] Jun 09, 2023 09:31 AM AMBULATORY - MEDICINE [facility] June 30, 2023 01:00 PM AMBULATORY - PSYCHIATRY [place] [facility] [place] [facility] Jul 28, 2023 01:00 PM AMBULATORY - PS[place]CHIATRY [place] [facility] [place] [facility] Aug 04, 2023 01:00 PM AMBULATORY - PSYCHIATRY [place] [facility] [place] [facility] Aug 11, 2023 09:00 AM AMBULATORY - MEDICINE [place] [facility] [place] [facility] Aug 11, 2023 01:00 PM AMBULATORY - PSYCHIATRY [place] [facility] [place] [facility] Aug 17, 2023 10:00 AM AMBULATORY - REHAB MEDICIN E [place] [facility] [place] [facility] Sep 01, 2023 01:00 PM AMBULATORY - PSYCHIATRY [place] [facility] [place] [facility] Sep 08, 2023 01:00 PM AMBULATORY - PSYCHIATRY [place] [facility] [place] [facility] Sep 15, 2023 01:00 PM AMBULATORY - PSYCHIATRY [place] [facility] [place] [facility] Sep 22, 2023 01:00 PM AMBULATORY - PSYCHIATRY [place] [facility] [place] [facility] Sep 24, 2023 09:00 AM AMBULATORY - MEDICINE [place] [facility] [place] [facility] Sep 24, 2023 10:30 AM AMBULATORY - MEDICINE [place] [facility] [place] [facility] Sep 24, 2023 11:30 AM AMBULATORY - REHAB MEDICIN E [place] [facility] [place] [facility] Sep 25, 2023 01:00 PM AMBULATORY - MEDICINE [place] [facility] [place] [facility] Sep 29, 2023 01:00 PM AMBULATORY - PSYCHIATRY [place] [facility] [place] [facility] Oct 13, 2023 08:00 AM AMBULATORY - MEDICINE [place] [facility] [place] [facility] Oct 13, 2023 01:00 PM AMBULATORY - PSYCHIATRY [place] [facility] [place] [facility] Active, Pending, and Scheduled Orders This section [...] (SST-GOLD) SERUM SP [place] [facility] [place] [facility] Social History: Smoking Status (Most current) and [...] 19, 2023 01:00 PM VA-TOBACCO NEVER USED [place] [facility] [place] [facility] Tobacco Use History This section includes a history of the smoking, or tobacco-related health factors, that were collected on or before the date of the Encounter. The data comes from the [place] facility where the Encounter took place. Date/Time Smoking Status/Tobacco Use Comment Gisele accynthia June 17, 2022 01:00 PM VA-TOBACCO NEVER USED [place] [facility] [place] [facility] Jul 16, 2021 01:00 PM VA-TOBACCO NEVER USED [place] [facility] [place] [facility] July 03, 2020 01:00 PM VA-TOBACCO NEVER USED [place] [facility] [place] [facility] Jul 11, 2019 02:57 PM VA-TOBACCO NEVER USED [place] [facility] [place] [facility] Jan 14, 2019 08:50 AM VA-TOBACCO NEVER USED [place] [facility] [place] [facility] Mar 04, 2018 01:20 PM VA-TOBACCO NEVER USED [place] [facility] [place] [facility] May 27, 2017 11:01 AM LIFETIME NON-TOBACCO USER [place] [facility] [place] [facility] May 20, 2016 10:51 AM LIFETIME NON-TOBACCO USER [place] [facility] [place] [facility] May 03, 2015 01:13 PM LIFETIME NON-TOBACCO USER [place] [facility] [facility] Advance Directives: All historical and current Section [...] ADVANCE DIRECTIVE MIGDALIA MILES [place] [facility] Apr 14, 2019 ADVANCE DIRECTIVE RAFAL BULLARD [facility] Radiology Reports: +/- 30 days of [...] the Encounter. The data comes from all [place] treatment facilities. Date/Time Radiology Report Provider Source Jun 05, 2023 08:42 AM [employer]: GONZALESPRASANTH Mayo [id number] -[id number] M Exm Date: JUN 05, 2023@08:42 Req Phys: SUBHA VELAZQUEZ Loc: CWM/NO/PACT EIGHT (Req'g Loc) Img Loc: ULTRASOUND Service: Unknown (Case [id number] COMPLETE) [employer] ([place] Detailed) CPT:39684 Reason for Study: h/o hep c Clinical History: Report Status: Verified Date Reported: JUN 05, 2023 Date Verified: JUN 05, 2023 Logistics Specialist E-Sig: Report: ECHO[employer] ABDOM[employer] HISTORY: 77-year-old male with a history of hepatitis C. COMPARISON: None. TECHNIQUE: Sonographic imaging of the right and left upper quadrants was performed at the local [place] facility. 29 still images were received by the [place] National Teleradiology Program (NTP) for interpretation. FINDINGS: [...] No ascites. READING PHYSICIAN: Han Godinez MD -[id number] 06/05/2023 16:18 EDT [facility] National Teleradiology Program [phone] (For Medical Practitioner Use Only) Attention Patients / Veterans: If you have questions or concerns about these test results, please contact your ordering provider or primary care team. Primary Diagnostic Code: NO ALERT REQUIRED Primary Interpreting Staff: RADIOLOGY,OUTSIDE SERVICE, Staff Physician / RAD[facility]TSIDE SERVICE [facility] Encounter Notes: All associated encounter notes This section contains the clinical notes associated to the Encounter. Date/Time Encounter Note(s) Provider Source Jun 03, 2023 01:39 PM RESPIRATORY THERAP Y NOTE: LOCAL TITLE: RESPIRATORY THERAPY NOTE(BLANK) STANDARD TITLE: RESPIRATORY THERAPY NOTE DATE OF NOTE: JUN 03, 2023@13:39 ENTRY DATE: JUN 03, 2023@13:39:20 AUTHOR: PHILLIP GILL COSIGNER: URGENCY: STATUS: COMPLETED Attempted to contact stacey, dx with sleep apnea, for cpap follow up and left message for him to call back. Stacey was issued cpap 05/06/2023 but he couldn't tolerate the full face mask and was issued the P10 nasal pillow with a chin strap. The [employer] data shows he has not changed his mask settings to nasal pillows. [employer] COMPLIANCE PROGRAM Patient APAP compliance data reviewed via the [employer] program for the last 7 days. SETTINGS: ASV EPAP 7cm, PS 3 - 15cm TOTAL DAYS USED 7 DAYS USED > 4hrs 7 AVG USAGE 5:30 hours LEAK 35 AHI: 3 These results indicate [place] is compliant. If pt has any questions or concerns regarding Apap, he/she can contact Respiratory at [phone] extension [phone]. /es/ PHILLIP GILL CRT RESPIRATORY THERAPIST Signed: 06/03/2023 13:46 PHILLIP GILL
--- OUTSIDE RECORDS SUMMARY | 2024-02-16 09:08 | XMS_ITS | Encounter Summary ---
Author Name [facility] [place] Organization [place] Address [address] [place] [address] Care Team Providers Care Assistant To The Vice President Name Role Phone SUBHA VELAZQUEZ Primary Care [...] Relationship to Policy Bryson GREGORY PUGA-WN R [place] SPECIAL CLASS GREGORY DIOP Sep 15, 2011 GREGORY PUGA [id number] PAULA GONZALES PATIENT [facility] [place] MEDICARE SUPPLEMEN [employer] [facility] Aug 09, 2017 [id number] [phone] PAULA GONZALES PATIENT [facility] [place] MEDICARE SUPPLEMEN MARIA ELENA [facility] AGENC Y SUPP PL Aug 09, 2017 [id number] [phone] PAULA GONZALES PATIENT MEDICARE (WNR) MEDICARE (M) PART A Nov 10, 2019 PART A [id number] PAULA GONZALES PATIENT MEDICARE (WNR) MEDICARE (M) PART B Apr 09, 2010 PART B [id number] PAULA GONZALES PATIENT MEDICARE (WNR) MEDICARE (M) PART B Apr 09, 2010 PART B [id number] PAULA GONZALES PATIENT MEDICARE (WNR) MEDICARE (M) PART B Apr 09, 2010 PART B [id number] PAULA GONZALES PATIENT MEDICARE (WNR) MEDICARE (M) PART A Nov 09, 2009 PART A [id number] PAULA GONZALES PATIENT MEDICARE (WNR) MEDICARE (M) PART A Nov 09, 2009 PART A [id number] PAULA GONZALES PATIENT Selected Encounter This section includes the information on record at [place] for the Encounter. Date/Time Encounter Type Encounter Description Reason Provider Source May 26, 2023 01:00 PM PSYTX W PT 45 [facility]UTES [facility] - IND ICD-10-CM F43.10 Post-traumatic stress disorder, unspecified NATHAN KIRK Mikhail Encounter Template Text not used by [place] Assessments - Encounter Diagnoses This section includes the primary and secondary diagnoses documented for the Encounter. Date/Time Primary/Secondary Diagnosis Diagnosis Name Provider Source May 27, 2023 02:48 PM PRIMARY Post-traumatic stress disorder, unspecified NATHAN KIRK [facility] Plan of Treatment: Future Appointments (+ 6 months) and Future Tests (+/- 45 days) The Plan of Treatment section includes future care activities for the patient from all [place] treatmentfacilities. This section includes future appointments and future orders which are active, pending or scheduled. Future Appointments This section includes appointments that were scheduled to occur 6 months from the date of the Encounter, up to a maximum of 20 appointments. The data comes from all [place] treatment facilities. Appointment Date/Time Appointment Type Appointme nt Facility Name Jun 02, 2023 01:00 PM AMBULATORY - PSYCHIATRY [place] [facility] [place] [facility] Jun 05, 2023 09:00 AM AMBULATORY - NONE [place] [facility] [place] [facility] Jun 09, 2023 09:30 AM AMBULATORY - MEDICINE [facility] [place] [facility] Jun 09, 2023 09:31 AM AMBULATORY - MEDICINE [facility] June 30, 2023 01:00 PM AMBULATORY - PSYCHIATRY [place] [facility] [place] [facility] Jul 28, 2023 01:00 PM AMBULATORY - PSYCHIATRY [place] [facility] [place] [facility] Aug 04, 2023 01:00 PM AMBULATORY - PSYCHIATRY [place] [facility] [place] [facility] Aug 11, 2023 09:00 AM AMBULATORY - MEDICINE [place] [facility] [place] [facility] Aug 11, 2023 01:00 PM AMBULATORY - PSYCHIATRY [place] [facility] [place] [facility] Aug 17, 2023 10:00 AM AMBULATORY - REHAB MEDICIN E [place] [facility] [place] [facility] Sep 01, 2023 01:00 PM AMBULATORY - PSYCHIATRY [place] [facility] [place] [facility] Sep 08, 2023 01:00 PM AMBULATORY - PSYCHIATRY [place] [facility] [place] [facility] Sep 15, 2023 01:00 PM AMBULATORY - PSYCHIATRY [place] [facility] [place] [facility] Sep 22, 2023 01:00 PM AMBULATORY - PSYCHIATRY [place] [facility] [place] [facility] Sep 24, 2023 09:00 AM AMBULATORY - MEDICINE [place] [facility] [place] [facility] Sep 24, 2023 10:30 AM AMBULATORY - MEDICINE [place] [facility] [place] [facility] Sep 24, 2023 11:30 AM AMBULATORY - REHAB MEDICIN E [place] [facility] [place] [facility] Sep 25, 2023 01:00 PM AMBULATORY - MEDICINE [place] [facility] [place] [facility] Sep 29, 2023 01:00 PM AMBULATORY - PSYCHIATRY [place] [facility] [place] [facility] Oct 13, 2023 08:00 AM AMBULATORY - MEDICINE [place] [facility] [place] [facility] Active, Pending, and Scheduled Orders This section includes a listing of several types of active, pending, and scheduled orders, including clinic medications orders, diagnostic test orders, procedure orders and consult orders; where the start date of the order is 45 days before the date of the Encounter or 45 days after the date of theEncounter. The data comes from all [place] treatment facilities. Test Date/Time Test Type Test Details Facility Name May 21, 2023 12:00 AM Laboratory - Chemi bryannay Order HCV RNA PCR PANEL(WHV) BLOOD (SST-GOLD) SERUM SP [place] [facility] [place] [facility] Social History: Smoking Status (Most current) and Tobacco Use (All prior to encounter date) This section includes the most current, and the historical, smoking and tobacco- related health factors from the [place] facility where the Encounter took place. Current Smoking Status This section includes the most current smoking, or tobacco-related health factor, from the [place] facility where the Encounter took place. Date/Time Current Smoking Status Comment Louisa ity May 19, 2023 01:00 PM VA-TOBACCO NEVER USED [place] [facility] [place] [facility] Tobacco Use History This section includes a history of the smoking, or tobacco-related health factors, that were collected on or before the date of the Encounter. The data comes from the [place] facility where the Encounter took place. Date/Time Smoking Status/Tobacco Use Comment Gisele accynthia June 17, 2022 01:00 PM VA-TOBACCO NEVER USED [place] [facility] [place] [facility] Jul 16, 2021 01:00 PM VA-TOBACCO NEVER USED [place] [facility] [place] [facility] July 03, 2020 01:00 PM VA-TOBACCO NEVER USED [place] [facility] [place] [facility] Jul 11, 2019 02:57 PM VA-TOBACCO NEVER USED [place] [facility] [place] [facility] Jan 14, 2019 08:50 AM VA-TOBACCO NEVER USED [place] [facility] [place] [facility] Mar 04, 2018 01:20 PM VA-TOBACCO NEVER USED [place] [facility] [place] [facility] May 27, 2017 11:01 AM LIFETIME NON-TOBACCO USER [place] [facility] [place] [facility] May 20, 2016 10:51 AM LIFETIME NON-TOBACCO USER [place] [facility] [place] [facility] May 03, 2015 01:13 PM LIFETIME NON-TOBACCO USER [place] [facility] [place] [facility] Advance Directives: All historical and current Section Date Range: From patient's date of to the date document was created. This section includes ALL of a patient's completed or amended [place] Advance and Rescinded Directives. The entries below indicate that a directive exists for the patient, but an actual copy is not included with this document. The data comes from all [place] facilities. Date Advance Directives Provider Source Nov 08, 2019 ADVANCE DIRECTIVE MIGDALIA MILES [place] [facility] Apr 14, 2019 ADVANCE DIRECTIVE RAFAL BULLARD [place] C [facility] Radiology Reports: +/- 30 days of [...] the Encounter. The data comes from all [place] treatment facilities. Date/Time Radiology Report Provider Source Jun 05, 2023 08:42 AM [employer]: PRASANTH GONZALES [id number] M Exm Date: JUN 05, 2023@08:42 Req Phys: SUBHA VELAZQUEZ Loc: CWM/NO/PACT EIGHT (Req'g Loc) Img Loc: ULTRASOUND Service: Unknown (Case [id number] COMPLETE) [employer] ([place] Detailed) CPT:26966 Reason for Study: h/o hep c Clinical History: Report Status: Verified Date Reported: JUN 05, 2023 Date Verified: JUN 05, 2023 Hospice Clinical Supervisor E-Sig: Report: [employer] HISTORY: 77-year-old male with a history of hepatitis C. COMPARISON: None. TECHNIQUE: Sonographic imaging of the right and left upper quadrants was performed at the local [place] facility. 29 still images were received by the [place] National Teleradiology Program (NTP) for interpretation. FINDINGS: [...] No ascites. READING PHYSICIAN: Han Godinez MD -[id number] 06/05/2023 16:18 EDT [facility] National Teleradiology Program [phone] (For Medical Practitioner Use Only) Attention Patients / Veterans: If you have questions or concerns about these test results, please contact your ordering provider or primary care team. Primary Diagnostic Code: NO ALERT REQUIRED Primary Interpreting Staff: RADIOLOGY,OUTSIDE SERVICE, Staff Physician / RADIOLOGY,OUTSIDE SERVICE [facility] Encounter Notes: All associated encounter notes This section contains the clinical notes associated to the Encounter. Date/Time Encounter Note(s) Provider Source May 26, 2023 01:04 PM TELEHEALTH NOTE: LOCAL TITLE: [employer] PSYCHOLOGY NOTE STANDARD TITLE: TELEHEALTH NOTE DATE OF NOTE: MAY 26, 2023@13:04 ENTRY DATE: MAY 26, 2023@13:04:52 AUTHOR: NATHAN KIRK COSIGNER: URGENCY: STATUS: COMPLETED [employer] (VVC) Standard Documentation VVC Clinician Resources Only: E911 (Emergency Call Relay Center): [phone] [facility] Crisis Line - 988 then press #1. [facility] Suicide Coordinator [phone], Ext. [phone]; Back-up Ext. [phone] [place] Police, [place] JOSHUA [phone] Introduction: Visit is being conducted by [employer]. identified with 2 identifiers: [X] Full Name [X] Date of [ ] [place] ID Card Emergency Plan: confirmed and/or provided the following information in case of emergency or technology failure. PATIENT PHONE - PHONE NUMBER [CELLULAR] - Is patient phone number correct, if not, enter below: Pukwana's phone number: PRASANTH GONZALES [address], [place], [address] 's present location and address for appointment: [place] [address] 's emergency contact name and phone number: Layla Jung Pukwana reported that location is private and safe: Yes Informed Consent: Pukwana informed of the risks and benefits of Telehealth video care. [place]ana has the right to refuse video services. If refuses video visit, a daat-tz-tzio visit will be scheduled. 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 Provided Suicide Prevention Hotline number, and other contact numbers as necessary. VISIT DURATION: 52 Minutes * needed additional time to address current issues. DIAGNOSES: PTSD [employer] STATEMENT OF GOALS/CONCERNS: Reduce irritability, avoidance, work on current challenges (including medical issues, particularly, cancer diagnosis), relationship issues, increase. meaningful activities and remain connected with people he is close to. SESSION FOCUS: Session focused on medical issues and finding balance in 's life. Pukwana shared thoughts regarding toxic exposure to contaminated water while assigned to [employer], skyler hepatitis, and malaria while active duty, and the impact on him. He also shared current medical challenges, such as sleep apnea, recovery from recent knee replacement surgery, and continued lab work and screenings to monitor the status of his bladder cancer, which is reportedly in remission. The remainder of the session focused on exploring activities Pukwana used to enjoy, such as, fishing, going to the beach, walking/hiking in the p[place], and going to plays. However, Pukwana stated he cannot do these things right now. When asked why, he stated that he is not happy and has to wait until he is. Processed Pukwana's thoughts regarding happiness and what that looks like for him. Upon further reflection, he expressed that he does have happiness in his life and shared the things that make him happy. Also discussed that happiness, like all emotional states, can ebb and flow with life events, and that he doesn't have to wait for something to change to make a choice to do something meaningful. Moreover, he can move forward with goals that are of value to him, including the activities he has thought about for a long time. Compared what life looks like for him now, without engaging in the things that are meaningful to him, versus a life that does include them. Pukwana stated that there is definitely a difference between the two and that he wanted the life that includes the things he loves. 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 However, he stated that his legal administrative secretary continued to (gently) tell him he was going to go and that he was convinced to do so. He shared that during the trip, he realized how much it meant to him and his overall well-being. shared that he wanted more of that, and agreed to work on finding balance in his life again. He shared that he is tired of spending most of his time managing medical claims, medical issues, and working on projects at home. He expressed understanding that while those things are important, he can make time to enjoy his life as well. Will revisit next session. INTERVENTIONS: Psychotherapeutic Interventions: Limit news and triggering [...] PLAN FOR FOLLOW-UP: Next session planned for: 06/02/23 at 1:00pm /rosio/ NATHAN KIRK, Ph.D Clinical Psychologist Signed: 05/27/2023 14:49 NATHAN KIRK [facility]
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
--- OUTSIDE RECORDS SUMMARY | 2024-02-16 09:08 | XMS_ITS ---
Author Name [facility] [place] [facility] [place] Address [address] [place] [address] Care Team Providers Care Refinery Process Engineer Name Role Phone SUBHA VELAZQUEZ Primary Care [...] Relationship to Policy Bryson GREGORY PUGA-WN R [place] SPECIAL CLASS GREGORY DIOP Sep 15, 2011 GREGORY PUGA [id number] PAULA GONZALES PATIENT [facility] MED[facility] SUPPLEMEN [facility] Aug 09, 2017 [id number] [phone] PAULA GONZALES PATIENT [facility] [place] MEDICARE SUPPLEMEN [facility] ELE[facility] SUPP PL Aug 09, 2017 [id number] [phone] PAULA GONZALES PATIENT MEDICARE (WNR) MEDICARE (M) PART A Nov 10, 2019 PART A [id number] PAULA GONZALES PATIENT MEDICARE (WNR) MEDICARE (M) PART B Apr 09, 2010 PART B [id number] PAULA GONZALES PATIENT MEDICARE (WNR) MEDICARE (M) PART B Apr 09, 2010 PART B [id number] PAULA GONZALES PATIENT MEDICARE (WNR) MEDICARE (M) PART B Apr 09, 2010 PART B [id number] PAULA GONZALES PATIENT MEDICARE (WNR) MEDICARE (M) PART A Nov 09, 2009 PART A [id number] PAULA GONZALES PATIENT MEDICARE (WNR) MEDICARE (M) PART A Nov 09, 2009 PART A [id number] [phone] PAULA GONZALES PATIENT Selected Encounter This section includes the information on record at [place] for the Encounter. Date/Time Encounter Type Encounter Description Reason Pro vider Source Apr 21, 2023 01:00 PM Outpatient Encounter [facility] Encounter Template Text not used by [place] Plan of Treatment: Future Appointments (+ 6 months) and Future Tests (+/- 45 days) The Plan of Treatment section includes future care activities for the patient [facility] [place] [facility] This section includes future appointments and future orders which are active, pending or scheduled. Future Appointments This section includes appointments that were scheduled to occur 6 months from the date of the Encounter, up to a maximum of 20 appointments. The data comes from all [place] treatment facilities. Appointment Date/Time Appointment Type Appointme nt Facility Name Apr 22, 2023 08:30 AM AMBULATORY - NONE [place] [facility] [place] [facility] Apr 23, 2023 08:00 AM AMBULATORY - MEDICINE [facility] [place] [facility] May 06, 2023 12:30 PM AMBULATORY - NONE [place] [facility] [place] [facility] May 07, 2023 03:30 PM AMBULATORY - MEDICINE [place] [facility] [place] [facility] May 12, 2023 01:00 PM AMBULATORY - PSYCHIATRY [place] [facility] [place] [facility] May 19, 2023 01:00 PM AMBULATORY - PSYCHIATRY [place] [facility] [place] [facility] May 21, 2023 02:00 PM AMBULATORY - MEDICINE [place] [facility] [place] [facility] May 26, 2023 01:00 PM AMBULATORY - PSYCHIATRY [place] [facility] [place] [facility] Jun 02, 2023 01:00 PM AMBULATORY - PSYCHIATRY [place] [facility] [place] [facility] Jun 05, 2023 09:00 AM AMBULATORY - NONE [place] [facility] [place] [facility] Jun 09, 2023 09:30 AM AMBULATORY - MEDICINE [facility] [place] [facility] Jun 09, 2023 09:31 AM [place] [facility] June 30, 2023 01:00 PM AMBULATORY - PSYCHIATRY [facility] [place] [facility] Jul 28, 2023 01:00 PM AMBULATORY - PSYCHIATRY [place] [facility] [place] [facility] Aug 04, 2023 01:00 PM AMBULATORY - PSYCHIATRY [facility] [place] [facility] Aug 11, 2023 09:00 AM AMBULATORY - MEDICINE [facility] [place] [facility] Aug 11, 2023 01:00 PM AMBULATORY - PSYCHIATRY [place] [facility] [place] [facility] Aug 17, 2023 10:00 AM AMBULATORY - REHAB MEDICIN E [facility] [place] [facility] Sep 01, 2023 01:00 PM AMBULATORY - PSYCHIATRY [facility] [place] [facility] Sep 08, 2023 01:00 PM AMBULATORY - PSYCHIATRY [facility] [place] [facility] Active, Pending, and Scheduled Orders This section includes a listing of several types of active, pending, and scheduled orders, including clinic medications orders, diagnostic test orders, procedure orders and consult orders; where the start date of the order is 45 days before the date of the Encounter or 45 days after the date of theEncounter. The data comes from all [place] treatment facilities. Test Date/Time Test Type Test Details Facility Name May 21, 2023 12:00 AM Laboratory - Chemi stry Order HCV RNA PCR PANEL(WHV) BLOOD (SST-GOLD) SERUM SP [place] [facility] [place] [facility] Social History: Smoking Status (Most current) [...] 17, 2022 01:00 PM VA-TOBACCO NEVER USED [place] [facility] [place] [facility] Tobacco Use History This section includes a history of the smoking, or tobacco-related health factors, that were collected on or before the date of the Encounter. The data comes from the [place] facility where the Encounter took place. Date/Time Smoking Status/Tobacco Use Comment [facility] Jul 16, 2021 01:00 PM VA-TOBACCO NEVER USED [place] [facility] [place] [facility] July 03, 2020 01:00 PM VA-TOBACCO NEVER USED [place] [facility] [place] [facility] Jul 11, 2019 02:57 PM VA-TOBACCO NEVER USED [place] [facility] [place] [facility] Jan 14, 2019 08:50 AM VA-TOBACCO NEVER USED [place] [facility] [place] [facility] Mar 04, 2018 01:20 PM VA-TOBACCO NEVER USED [place] [facility] [place] [facility] May 27, 2017 11:01 AM LIFETIME NON-TOBACCO USER [place] [facility] [place] [facility] May 20, 2016 10:51 AM LIFETIME NON-TOBACCO USER [place] [facility] [place] [facility] May 03, 2015 01:13 PM LIFETIME NON-TOBACCO USER [place] [facility] [place] [facility] Advance Directives: All historical and current Section Date Range: From patient's date of to the date document was created. This section includes ALL of a patient's completed or amended [place] Advance and Rescinded Directives. The entries below indicate that a directive exists for the patient, but an actual copy is not included with this document. The data comes from all [place] facilities. Date Advance Directives Provider Source Nov 08, 2019 ADVANCE DIRECTIVE MIGDALIA MILES [place] [facility] [place] [facility] Apr 14, 2019 ADVANCE DIRECTIVE RAFAL BULLARD [place] [facility]
--- OUTSIDE RECORDS SUMMARY | 2024-02-16 09:08 | XMS_ITS | Encounter Summary ---
Author Name [facility] [place] Address [address] [place] [address] Care Team Providers Care Graduate Teaching Associate Name Role Phone SUBHA VELAZQUEZ Primary [...] Relationship to Policy Bryson GREGORY PUGA-WN R [place] SPECIAL CLASS GREGORY DIOP Sep 15, 2011 GREGORY PUGA [id number] PAULA FENG PATIENT [facility] MEDICARE SUPPLEMEN [facility] Aug 09, 2017 [id number] PAULA FENG PATIENT [facility] [place] MEDICARE SUPPLEMEN [facility] ELENA [facility] AGENC Y SUPP PL Aug 09, 2017 [id number] PAULA FENG PATIENT MEDICARE (WNR) MEDICARE (M) PART A Nov 10, 2019 PART A [id number] PAULA FENG PATIENT MEDICARE (WNR) MEDICARE (M) PART B Apr 09, 2010 PART B [id number] PAULA FNEG PATIENT MEDICARE (WNR) MEDICARE (M) PART B Apr 09, 2010 PART B [id number] [phone] PAULA FENG PATIENT MEDICARE (WNR) MEDICARE (M) PART B Apr 09, 2010 PART B [id number] PAULA FENG PATIENT MEDICARE (WNR) MEDICARE (M) PART A Nov 09, 2009 PART A [id number] PAULA FENG PATIENT MEDICARE (WNR) MEDICARE (M) PART A Nov 09, 2009 PART A [id number] [phone] PAULA FENG PATIENT Selected Encounter This section includes the information on record at [place] for the Encounter. Date/Time Encounter Type Encounter Description Reason Provider Source May 12, 2023 01:00 PM PSYTX W PT 45 MINUTES [facility] - [facility] ICD-10-CM F43.10 Post-traumatic stress disorder, unspecified NATHAN KIRK Mikhail Encounter Template Text not used by [place] Assessments - Encounter Diagnoses This section includes the primary and secondary diagnoses documented for the Encounter. Date/Time Primary/Secondary Diagnosis Diagnosis Name Provider Source May 13, 2023 07:44 PM PRIMARY Post-traumatic stress disorder, unspecified [facility]ATHAN KIRK [facility] Plan of Treatment: Future Appointments (+ 6 months) and Future Tests (+/- 45 days) The Plan of Treatment section includes future care activities for the patient from all [place] treatmentfacilities. This section includes future appointments and future orders which are active, pending or scheduled. Future Appointments This section includes appointments that were scheduled to occur 6 months from the date of the Encounter, up to a maximum of 20 appointments. The data comes from all [place] treatment facilities. Appointment Date/Time Appointment Type Appointme nt Facility Name May 19, 2023 01:00 PM AMBULATORY - PSYCHIATRY [place] [facility] [place] [facility] May 21, 2023 02:00 PM AMBULATORY - MEDICINE [facility] [place] [facility] May 26, 2023 01:00 PM AMBULATORY - PSYCHIATRY [place] [facility] [place] [facility] Jun 02, 2023 01:00 PM AMBULATORY - PSYCHIATRY [place] [facility] [place] [facility] Jun 05, 2023 09:00 AM AMBULATORY - NONE [place] [facility] [place] [facility] Jun 09, 2023 09:30 AM AMBULATORY - MEDICINE [facility] [place] [facility] Jun 09, 2023 09:31 AM [facility] June 30, 2023 01:00 PM AMBULATORY - PSYCHIATRY [place] [facility] [place] [facility] Jul 28, 2023 01:00 PM AMBULATORY - PSYCHIATRY [place] [facility] [place] [facility] Aug 04, 2023 01:00 PM AMBULATORY - PSYCHIATRY [place] [facility] [place] [facility] Aug 11, 2023 09:00 AM AMBULATORY - MEDICINE [place] [facility] [place] [facility] Aug 11, 2023 01:00 PM AMBULATORY - PSYCHIATRY [place] [facility] [place] [facility] Aug 17, 2023 10:00 AM AMBULATORY - REHAB MEDICIN E [place] [facility] [place] [facility] Sep 01, 2023 01:00 PM AMBULATORY - PSYCHIATRY [place] [facility] [place] [facility] Sep 08, 2023 01:00 PM AMBULATORY - PSYCHIATRY [place] [facility] [place] [facility] Sep 15, 2023 01:00 PM AMBULATORY - PSYCHIATRY [place] [facility] [place] [facility] Sep 22, 2023 01:00 PM AMBULATORY - PSYCHIATRY [place] [facility] [place] [facility] Sep 24, 2023 09:00 AM AMBULATORY - MEDICINE [place] [facility] [place] [facility] Sep 24, 2023 10:30 AM AMBULATORY - MEDICINE [place] [facility] [place] [facility] Sep 24, 2023 11:30 AM AMBULATORY - REHAB MEDICIN E [place] [facility] [place] [facility] Active, Pending, and Scheduled Orders This section includes a listing of several types of active, pending, and scheduled orders, including clinic medications orders, diagnostic test orders, procedure orders and consult orders; where the start date of the order is 45 days before the date of the Encounter or 45 days after the date of theEncounter. The data comes from all [place] treatment facilities. Test Date/Time Test Type Test Details Facility Name May 21, 2023 12:00 AM Laboratory - Chemi bryannay Order HCV RNA PCR PANEL(WHV) BLOOD (SST-GOLD) SERUM SP [place] [facility] [place] [facility] Social History: Smoking Status (Most current) and Tobacco Use (All prior to encounter date) This section includes the most current, and the historical, smoking and tobacco- related health factors from the [place] facility where the Encounter took place. Current Smoking Status This section includes the most current smoking, or tobacco-related health factor, from the [place] facility where the Encounter took place. Date/Time Current Smoking Status Comment Louisa ity June 17, 2022 01:00 PM VA-TOBACCO NEVER USED [place] [facility] [place] [facility] Tobacco Use History This section includes a history of the smoking, or tobacco-related health factors, that were collected on or before the date of the Encounter. The data comes from the [place] facility where the Encounter took place. Date/Time Smoking Status/Tobacco Use Comment F acility Jul 16, 2021 01:00 PM VA-TOBACCO NEVER USED [place] [facility] [place] [facility] July 03, 2020 01:00 PM VA-TOBACCO NEVER USED [place] [facility] [place] [facility] Jul 11, 2019 02:57 PM VA-TOBACCO NEVER USED [place] [facility] [place] [facility] Jan 14, 2019 08:50 AM VA-TOBACCO NEVER USED [place] [facility] [place] [facility] Mar 04, 2018 01:20 PM VA-TOBACCO NEVER USED [place] [facility] [place] [facility] May 27, 2017 11:01 AM LIFETIME NON-TOBACCO USER [place] [facility] [place] [facility] May 20, 2016 10:51 AM LIFETIME NON-TOBACCO USER [place] [facility] [place] [facility] May 03, 2015 01:13 PM LIFETIME NON-TOBACCO USER [place] [facility] [place] [facility] Advance Directives: All historical and current Section Date Range: From patient's date of to the date document was created. This section includes ALL of a patient's completed or amended [place] Advance and Rescinded Directives. The entries below indicate that a directive exists for the patient, but an actual copy is not included with this document. The data comes from all [place] facilities. Date Advance Directives Provider Source Nov 08, 2019 ADVANCE DIRECTIVE MIGDALIA MILES [place] [facility] [place] [facility] Apr 14, 2019 ADVANCE DIRECTIVE RAFAL BULLARD [place] [facility] Radiology Reports: +/- 30 days of the [...] the Encounter. The data comes from all [place] treatment facilities. Date/Time Radiology Report Provider Source Jun 05, 2023 08:42 AM [employer] [facility] [employer]: PRASANTH FENG [id number] -[id number] M Ex Date: JUN 05, 2023@08:42 Req Phys: SUBHA VELAZQUEZ Loc: CWM/NO/PACT EIGHT (Req'g Loc) Img Loc: ULTRASOUND Service: Unknown (Case [id number] COMPLETE) [employer] (US Detailed) CPT:38802 Reason for Study: h/o hep c Clinical History: Report Status: Verified Date Reported: JUN 05, 2023 Date Verified: JUN 05, 2023 Domestic Travel Consultant E-Sig: Report: [employer] HISTORY: 77-year-old male with a history of hepatitis C. COMPARISON: None. TECHNIQUE: Sonographic imaging of the right and left upper quadrants was performed at the local [place] facility. 29 still images were received by the [place] National Teleradiology Program (NTP) for interpretation. FINDINGS: [...] No ascites. READING PHYSICIAN: Han Godinez MD -[id number] 06/05/2023 16:18 EDT [facility] National Teleradiology Program [phone] (For Medical Practitioner Use Only) Attention Patients / Veterans: If you have questions or concerns about these test results, please contact your ordering provider or primary care team. Primary Diagnostic Code: NO ALERT REQUIRED Primary Interpreting Staff: RADIOLOGY,OUTSIDE SERVICE, Staff Physician / RADIOLOGY,OUTSIDE SERVICE [facility] Encounter Notes: All associated encounter notes This section contains the clinical notes associated to the Encounter. Date/Time Encounter Note(s) Provider Source May 12, 2023 01:50 PM TELEHEALTH NOTE: LOCAL TITLE: [employer] VIDEO CONNECT PSYCHOLOGY NOTE STANDARD TITLE: TELEHEALTH NOTE DATE OF NOTE: MAY 12, 2023@13:50 ENTRY DATE: MAY 12, 2023@13:51:04 AUTHOR: NATHAN KIRK COSIGNER: URGENCY: STATUS: COMPLETED [place] Video Connect (VVC) Standard Documentation VVC Clinician Resources Only: E911 (Emergency Call Relay Center): [phone] [facility] Crisis Line - 988 then press #1. [facility] Suicide Coordinator [phone], Ext. [phone]; Back-up Ext. [phone] [place] Police, [place], [place] [phone] Introduction: Visit is being conducted by [place] [employer]. Logan identified with 2 identifiers: [X] Full Name [X] Date of [ ] [place] ID Card Emergency Plan: confirmed and/or provided the following information in case of emergency or technology failure. PATIENT PHONE - PHONE NUMBER [CELLULAR] - Is patient phone number correct, if not, enter below: Logan's phone number: PRASANTH FENG [address], [place], [address] 's present location and address for appointment: [address] [place] [address] Logan's emergency contact name and phone number: Layla Feng reported that location is private and safe: Yes Informed Consent: Logan informed of the risks and benefits of Telehealth video care. has the right to refuse video services. If refuses video visit, a [id number] visit will be scheduled. 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 Provided Suicide Prevention Hotline number, and other contact numbers as necessary. VISIT DURATION: 48 Minutes DIAGNOSES: PTSD [employer] STATEMENT OF GOALS/CONCERNS: Reduce irritability, avoidance, work on current challenges (including medical issues), relationship issues, increase. meaningful activities and remain connected with people he is close to. SESSION FOCUS: Session focused on updates regarding 's medical challenges. Logan recently has knee replacement surgery and reports recovering well. He reported that he will have the other knee replaced in approximately 6 months. 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 The remainder of the session focused on recent increase in anxiety after watching a television show about a young combat [place] and that he experienced a flow of thoughts and emotions. stated that he stopped watching it as it brought back memories from [place]. Processed 's thoughts and emotions and revisited coping skills that have been helpful to . shared that it helped to talk about it and would like to revisit next session. INTERVENTIONS: Psychotherapeutic Interventions: Limit [...] PLAN FOR FOLLOW-UP: Next session planned for: 05/19/23 at 1:00pm /rosio/ NATHAN KIRK, Ph.D Clinical Psychologist Signed: 05/13/2023 19:44 NATHAN KIRK [facility]
--- OUTSIDE RECORDS SUMMARY | 2024-02-16 09:08 | XMS_ITS | Encounter Summary ---
Author Name [facility] [place] Organization [facility] [place] Address [address] [place] [address] Care Team Providers Care Component Inspector Name Role Phone SUBHA VELAZQUEZ Primary Care [...] Relationship to Policy Bryson GREGORY PUGA-WN R [place] SPECIAL CLASS GREGORY DIOP Sep 15, 2011 GREGORY PUGA [id number] [phone] PAULA FENG PATIENT [facility] Aug 09, 2017 [id number] PAULA FENG PATIENT [facility] SUPP [address] Aug 09, 2017 [id number] [phone] PAULA FENG PATIENT MEDICARE (WNR) MEDICARE (M) PART A Nov 10, 2019 PART A [id number] PAULA FENG PATIENT MEDICARE (WNR) MEDICARE (M) PART B Apr 09, 2010 PART B [id number] [phone] [id number] PAULA FENG PATIENT MEDICARE (WNR) MEDICARE (M) PART B Apr 09, 2010 PART B [id number] [phone] [id number] PAULA FENG PATIENT MEDICARE (WNR) MEDICARE (M) PART B Apr 09, 2010 PART B [id number] [phone] PAULA FENG PATIENT MEDICARE (WNR) MEDICARE (M) PART A Nov 09, 2009 PART A [id number] PAULA FENG PATIENT MEDICARE (WNR) MEDICARE (M) PART A Nov 09, 2009 PART A [id number] PAULA FENG PATIENT Selected Encounter This section includes the information on record at [place] for the Encounter. Date/Time Encounter Type Encounter Description Reason Provider Source May 13, 2023 06:53 AM Outpatient Encounter PRIMARY CARE/MEDICINE MANUEL HERNANDEZ Encounter Template Text not used by [place] Plan of Treatment: Future Appointments (+ 6 months) and Future Tests (+/- 45 days) The Plan of Treatment section includes future care activities for the patient from [facility] This section includes future appointments and future orders which are active, pending or scheduled. Future Appointments This section includes appointments that were scheduled to occur 6 months from the date of the Encounter, up to a maximum of 20 appointments. The data comes from all [place] treatment facilities. Appointment Date/Time Appointment Type Appointme nt Facility Name May 19, 2023 01:00 PM AMBULATORY - PSYCHIATRY [facility] [place] [facility] May 21, 2023 02:00 PM AMBULATORY - MEDICINE [facility] [place] [facility] May 26, 2023 01:00 PM AMBULATORY - PSYCHIATRY [facility] [place] [facility] Jun 02, 2023 01:00 PM AMBULATORY - PSYCHIATRY [facility] [place] [facility] Jun 05, 2023 09:00 AM AMBULATORY - NONE [facility] [place] [facility] Jun 09, 2023 09:30 AM AMBULATORY - MEDICINE [facility] [place] [facility] Jun 09, 2023 09:31 AM AMBULATORY - MEDICINE [facility] June 30, 2023 01:00 PM AMBULATORY - PSYCHIATRY [facility] [place] [facility] Jul 28, 2023 01:00 PM AMBULATORY - PS[facility]CHIATRY [facility] [place] [facility] Aug 04, 2023 01:00 PM AMBULATORY - PSYCHIATRY [facility] [place] [facility] Aug 11, 2023 09:00 AM AMBULATORY - MEDICINE [facility] [place] [facility] Aug 11, 2023 01:00 PM AMBULATORY - PSYCHIATRY [facility] [place] [facility] Aug 17, 2023 10:00 AM AMBULATORY - REHAB MEDICIN E [facility] [place] [facility] Sep 01, 2023 01:00 PM AMBULATORY - PSYCHIATRY [facility] [place] [facility] Sep 08, 2023 01:00 PM AMBULATORY - PSYCHIATRY [facility] [place] [facility] Sep 15, 2023 01:00 PM AMBULATORY - PSYCHIATRY [facility] [place] [facility] Sep 22, 2023 01:00 PM AMBULATORY - PSYCHIATRY [facility] [place] [facility] Sep 24, 2023 09:00 AM AMBULATORY - MEDICINE [facility] [place] [facility] Sep 24, 2023 10:30 AM AMBULATORY - MEDICINE [facility] [place] [facility] Sep 24, 2023 11:30 AM AMBULATORY - REHAB MEDICIN E [facility] [place] [facility] Active, Pending, and Scheduled Orders This section includes a listing of several types of active, pending, and scheduled orders, including clinic medications orders, diagnostic test orders, procedure orders and consult orders; where the start date of the order is 45 days before the date of the Encounter or 45 days after the date of theEncounter. The data comes from all [place] treatment facilities. Test Date/Time Test Type Test Details Facility Name May 21, 2023 12:00 AM Laboratory - Chemi stry Order HCV RNA PCR PANEL(WHV) BLOOD (SST-GOLD) SERUM SP [facility] [place] [facility] Social History: Smoking Status (Most current) and Tobacco Use (All prior to encounter date) This section includes the most current, and the historical, smoking and tobacco- related health factors from the [facility] facility where the Encounter took place. Current Smoking Status This section includes the most current smoking, or tobacco-related health factor, from the [place] facility where the Encounter took place. Date/Time Current Smoking Status Comment Louisa itapurva June 17, 2022 01:00 PM VA-TOBACCO NEVER USED [facility] [place] [facility] Tobacco Use History This section includes a history of the smoking, or tobacco-related health factors, that were collected on or before the date of the Encounter. The data comes from the [place] facility where the Encounter took place. Date/Time Smoking Status/Tobacco Use Comment [facility] Jul 16, 2021 01:00 PM VA-TOBACCO NEVER USED [facility] [place] [facility] July 03, 2020 01:00 PM VA-TOBACCO NEVER USED [facility] [place] [facility] Jul 11, 2019 02:57 PM VA-TOBACCO NEVER USED [facility] [place] [facility] Jan 14, 2019 08:50 AM VA-TOBACCO NEVER USED [facility] [place] [facility] Mar 04, 2018 01:20 PM VA-TOBACCO NEVER USED [facility] [place] [facility] May 27, 2017 11:01 AM LIFETIME NON-TOBACCO USER [facility] [place] [facility] May 20, 2016 10:51 AM LIFETIME NON-TOBACCO USER [facility] [place] [facility] May 03, 2015 01:13 PM LIFETIME NON-TOBACCO USER [facility] [place] [facility] Advance Directives: All historical and current Section Date Range: From patient's date of to the date document was created. This section includes ALL of a patient's completed or amended [place] Advance and Rescinded Directives. The entries below indicate that a directive exists for the patient, but an actual copy is not included with this document. The data comes from all [place] facilities. Date Advance Directives Provider Source Nov 08, 2019 ADVANCE DIRECTIVE MIGDALIA MILES [facility] [place] [facility] Apr 14, 2019 ADVANCE DIRECTIVE RAFAL BULLARD [facility] [place] [facility] Radiology Reports: +/- 30 days of [...] the Encounter. The data comes from all [place] treatment facilities. Date/Time Radiology Report Provider Source Jun 05, 2023 08:42 AM [email or web address]: PRASANTH FENG [id number] -[id number] M Exm Date: JUN 05, 2023@08:42 Req Phys: SUBHA VELAZQUEZ Loc: CWM/NO/PACT EIGHT (Req'g Loc) Img Loc: ULTRASOUND Service: Unknown (Case [id number] COMPLETE) [email or web address] [facility] [employer] ([place] Detailed) CPT:20630 Reason for Study: h/o hep c Clinical History: Report Status: Verified Date Reported: JUN 05, 2023 Date Verified: JUN 05, 2023 Academic Affairs Coordinator E-Sig: Report: [email or web address] HISTORY: 77-year-old male with a history of hepatitis C. COMPARISON: None. TECHNIQUE: Sonographic imaging of the right and left upper quadrants was performed at the local [place] facility. 29 still images were received by the [place] National Teleradiology Program (NTP) for interpretation. FINDINGS: [...] No ascites. READING PHYSICIAN: Han Godinez MD -[id number] 06/05/2023 16:18 EDT [facility] National Teleradiology Program [phone] (For Medical Practitioner Use Only) Attention Patients / Veterans: If you have questions or concerns about these test results, please contact your ordering provider or primary care team. Primary Diagnostic Code: NO ALERT REQUIRED Primary Interpreting Staff: RADIOLOGY,OUTSIDE SERVICE, Staff Physician / RADIOLOGY,OUTSIDE SERVICE [facility] [place] [facility] Encounter Notes: All associated encounter notes This section contains the clinical notes associated to the Encounter. Date/Time Encounter Note(s) Provider Source May 13, 2023 06:53 AM PRIMARY CARE SECUR E MESSAGING: LOCAL TITLE: PRIMARY CARE SECURE MESSAGING STANDARD TITLE: PRIMARY CARE SECURE MESSAGING DATE OF NOTE: MAY 13, 2023@06:53 ENTRY DATE: MAY 13, 2023@07:53:21 AUTHOR: MANUEL HERNANDEZ EXP COSIGNER: URGENCY: STATUS: COMPLETED ------Original Message --------- Sent: 05/12/2023 05:14 PM ET From: PRASANTH FENG To: Rogelio LAU_PRIMARY CARE_[facility] Subject: Test:Most recent MRI reading by [facility] Please provide a copy of the most recent MRI report by [facility] - concerning white matter to the brain. Thank you, Prasanth Feng [facility] ------Original Message --------- Sent: 05/13/2023 07:53 AM ET From: MANUEL HERNANDEZ To: PRASANTH FENG Subject: Test:Most recent MRI reading by [facility] HI MRI report has been put in the mail for you this morning Manuel /rosio/ MANUEL HERNANDEZ Registered Nurse Signed: 05/13/2023 07:53 MANUEL EHRNANDEZ [facility]
--- OUTSIDE RECORDS SUMMARY | 2024-02-16 09:08 | XMS_ITS ---
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 Name Role Phone SUBHA VELAZQUEZ Primary Care [...] Relationship to Policy Bryson GREGORY PUGA-WN R [place] SPECIAL CLASS GREGORY DIOP Sep 15, 2011 GREGORY PUGA [id number] PAULA GONZALES PATIENT [facility] MEDIC[facility] [facility] Aug 09, 2017 [id number] [phone] PAULA GONZALES PATIENT [facility] [place] [facility] [employer] [facility] SUPP [address] Aug 09, 2017 [id number] PAULA GONZALES PATIENT MEDICARE (WNR) MEDICARE (M) PART A Nov 10, 2019 PART A [id number] PAULA GONZALES PATIENT MEDICARE (WNR) MEDICARE (M) PART B Apr 09, 2010 PART B [id number] PAULA GONZALES PATIENT MEDICARE (WNR) MEDICARE (M) PART B Apr 09, 2010 PART B [id number] PAULA GONZALES PATIENT MEDICARE (WNR) MEDICARE (M) PART B Apr 09, 2010 PART B [id number] PAULA GONZALES PATIENT MEDICARE (WNR) MEDICARE (M) PART A Nov 09, 2009 PART A [id number] PAULA GONZALES PATIENT MEDICARE (WNR) MEDICARE (M) PART A Nov 09, 2009 PART A [id number] PAULA GONZALES PATIENT Selected Encounter This section includes the information on record at [place] for the Encounter. Date/Time Encounter Type Encounter Description Reason Pro vider Source Apr 21, 2023 12:00 PM Outpatient Encounter COMMUNITY CARE CONSULT IHE Encounter Template Text not used by [place] Plan of Treatment: Future Appointments (+ 6 months) and Future Tests (+/- 45 days) The Plan of Treatment section includes future care activities for the patient [facility]. This section includes future appointments and future orders which are active, pending or scheduled. Future Appointments This section includes appointments that were scheduled to occur 6 months from the date of the Encounter, up to a maximum of 20 appointments. The data comes from all [place] treatment facilities. Appointment Date/Time Appointment Type Appointme nt Facility Name Apr 22, 2023 08:30 AM AMBULATORY - NONE [facility] [place] [facility] Apr 23, 2023 08:00 AM AMBULATORY - MEDICINE [facility] [place] [facility] May 06, 2023 12:30 PM AMBULATORY - NONE [facility] [place] [facility] May 07, 2023 03:30 PM AMBULATORY - MEDICINE [facility] [place] [facility] May 12, 2023 01:00 PM AMBULATORY - PSYCHIATRY [facility] [place] [facility] May 19, 2023 01:00 PM AMBULATORY - PSYCHIATRY [facility] [place] [facility] May 21, 2023 02:00 PM AMBULATORY - MEDICINE [facility] [place] [facility] May 26, 2023 01:00 PM AMBULATORY - PSYCHIATRY [facility] [place] [facility] Jun 02, 2023 01:00 PM AMBULATORY - PSYCHIATRY [facility] [place] [facility] Jun 05, 2023 09:00 AM AMBULATORY - NONE [facility] [place] [facility] Jun 09, 2023 09:30 AM AMBULATORY - MEDICINE [facility] [place] [facility] Jun 09, 2023 09:31 AM [place]ORY - [place]IC[place] [facility] June 30, 2023 01:00 PM AMBULATORY - PSYCHIATRY [facility] [place] [facility] Jul 28, 2023 01:00 PM AMBULATORY - PSYCHIATRY [facility] [place] [facility] Aug 04, 2023 01:00 PM AMBULATORY - PSYCHIATRY [facility] [place] [facility] Aug 11, 2023 09:00 AM AMBULATORY - MEDICINE [facility] [place] [facility] Aug 11, 2023 01:00 PM AMBULATORY - PSYCHIATRY [facility] [place] [facility] Aug 17, 2023 10:00 AM AMBULATORY - REHAB MEDICIN E [facility] [place] [facility] Sep 01, 2023 01:00 PM AMBULATORY - PSYCHIATRY [facility] [place] [facility] Sep 08, 2023 01:00 PM AMBULATORY - PSYCHIATRY [facility] [place] [facility] Active, Pending, and Scheduled Orders This section includes a listing of several types of active, pending, and scheduled orders, including clinic medications orders, diagnostic test orders, procedure orders and consult orders; where the start date of the order is 45 days before the date of the Encounter or 45 days after the date of theEncounter. The data comes from all [place] treatment facilities. Test Date/Time Test Type Test Details Facility Name May 21, 2023 12:00 AM Laboratory - Chemi stry Order HCV RNA PCR PANEL(WHV) BLOOD (SST-GOLD) SERUM SP [facility] [place] [facility] Social History: Smoking Status (Most [...] 17, 2022 01:00 PM VA-TOBACCO NEVER USED [facility] [place] [facility] Tobacco Use History This section includes a history of the smoking, or tobacco-related health factors, that were collected on or before the date of the Encounter. The data comes from the [place] facility where the Encounter took place. Date/Time Smoking Status/Tobacco Use Comment F acility Jul 16, 2021 01:00 PM VA-TOBACCO NEVER USED [facility] [place] [facility] July 03, 2020 01:00 PM VA-TOBACCO NEVER USED [facility] [place] [facility] Jul 11, 2019 02:57 PM VA-TOBACCO NEVER USED [facility] [place] [facility] Jan 14, 2019 08:50 AM VA-TOBACCO NEVER USED [facility] [place] [facility] Mar 04, 2018 01:20 PM VA-TOBACCO NEVER USED [facility] [place] [facility] May 27, 2017 11:01 AM LIFETIME NON-TOBACCO USER [facility] [place] [facility] May 20, 2016 10:51 AM LIFETIME NON-TOBACCO USER [facility] [place] [facility] May 03, 2015 01:13 PM LIFETIME NON-TOBACCO USER [facility] [place] [facility] Advance Directives: All historical and current Section Date Range: From patient's date of to the date document was created. This section includes ALL of a patient's completed or amended [place] Advance and Rescinded Directives. The entries below indicate that a directive exists for the patient, but an actual copy is not included with this document. The data comes from all [place] facilities. Date Advance Directives Provider Source Nov 08, 2019 ADVANCE DIRECTIVE MIGDALIA MILES [facility] [place] [facility] Apr 14, 2019 ADVANCE DIRECTIVE RAFAL BULLARD [facility] [place] [facility] Encounter Notes: All associated encounter notes This section contains the clinical notes associated to the Encounter. Date/Time Encounter Note(s) Provider Source Apr 21, 2023 12:00 PM NONVA CONSULT: LOCAL TITLE: COMMUNITY CARE-CONSULT RESULT NOTE STANDARD TITLE: NONVA CONSULT DATE OF NOTE: APR 21, 2023@12:00 ENTRY DATE: MAY 22, 2023@09:15:12 AUTHOR: SHEN PONCE EXP COSIGNER: URGENCY: STATUS: COMPLETED VistA Imaging - Scanned Document [facility] NEUROLOGY-OFFICE NOTES SCANNED DOCUMENT SIGNATURE NOT REQUIRED Electronically Filed: 05/22/2023 by: SHEN PONCE [employer] CONSULTANT SHEN PONCE [facility]
--- OUTSIDE RECORDS SUMMARY | 2024-02-16 09:09 | XMS_ITS ---
Author Name [facility] [place] Address [address] [place] [address] Care Team Providers Care Lathe Hand Name Role Phone SUBHA VELAZQUEZ Primary [...] GREGORY DIOP Sep 15, 2011 GREGORY PUGA [id number] [phone] PAULA GONZALES PATIENT [facility] Aug 09, 2017 [id number] PAULA GONZALES PATIENT [facility] SUPP PL Aug 09, 2017 [id number] [phone] PAULA GONZALES PATIENT MEDICARE (WNR) MEDICARE (M) PART A Nov 10, 2019 PART A [id number] PAULA GONZALES PATIENT MEDICARE (WNR) MEDICARE (M) PART B Apr 09, 2010 PART B [id number] PAULA GONZALES PATIENT MEDICARE (WNR) MEDICARE (M) PART B Apr 09, 2010 PART B [id number] [id number] [id number] PAULA GONZALES PATIENT MEDICARE (WNR) MEDICARE (M) PART B Apr 09, 2010 PART B [id number] PAULA GONZALES PATIENT MEDICARE (WNR) MEDICARE (M) PART A Nov 09, 2009 PART A [id number] PAULA GONZALES PATIENT MEDICARE (WNR) MEDICARE (M) PART A Nov 09, 2009 PART A [id number] PAULA GONZALES PATIENT Selected Encounter This section includes the information on record at [place] for the Encounter. Date/Time Encounter Type Encounter Description Reason Provider Source Jun 09, 2023 09:30 AM TELEHEALTH FACILITY FEE SLEEP MEDICINE ICD-10-CM G47.33 Obstructive sleep apnea (adult) (pediatric) ANNIE CONRAD Mikhail Encounter Template Text not used by [place] Assessments - Encounter Diagnoses This section includes the primary and secondary diagnoses documented for the Encounter. Date/Time Primary/Secondary Diagnosis Diagnosis Name Provider Source July 02, 2023 11:03 AM PRIMARY Obstructive sleep apnea (adult) (pediatric) [facility] [place] [facility] July 02, 2023 11:03 AM SECONDARY Central sleep apnea in conditions classified elsewhere [facility] [place] [facility] Plan of Treatment: Future Appointments (+ 6 months) and Future Tests (+/- 45 days) The Plan of Treatment section includes future care activities for the patient [facility] [place] [facility] This section includes future appointments and future orders which are active, pending or scheduled. Future Appointments This section includes appointments that were scheduled to occur 6 months from the date of the Encounter, up to a maximum of 20 appointments. The data comes from all [place] treatment facilities. Appointment Date/Time Appointment Type Appointme nt Facility Name June 30, 2023 01:00 PM AMBULATORY - [facility]CHIATRY [facility] [place] [facility] Jul 28, 2023 01:00 PM AMBULATORY - PSYCHIATRY [facility] [place] [facility] Aug 04, 2023 01:00 PM AMBULATORY - PS[facility]CHIATRY [facility] [place] [facility] Aug 11, 2023 09:00 AM AMBULATORY [facility] MEDICINE [facility] [place] [facility] Aug 11, 2023 01:00 PM AMBULATORY - PS[facility]CHIATRY [facility] [place] [facility] Aug 17, 2023 10:00 AM AMBULATORY - REHAB MEDICIN E [facility] [place] [facility] Sep 01, 2023 01:00 PM AMBULATORY - PSYCHIATRY [facility] [place] [facility] Sep 08, 2023 01:00 PM AMBULATORY - PSYCHIATRY [facility] [place] [facility] Sep 15, 2023 01:00 PM AMBULATORY - PSYCHIATRY [facility] [place] [facility] Sep 22, 2023 01:00 PM AMBULATORY - PSYCHIATRY [facility] [place] [facility] Sep 24, 2023 09:00 AM AMBULATORY - MEDICINE [facility] [place] [facility] Sep 24, 2023 10:30 AM AMBULATORY - MEDICINE [facility] [place] [facility] Sep 24, 2023 11:30 AM AMBULATORY - REHAB MEDICIN E [facility] [place] [facility] Sep 25, 2023 01:00 PM AMBULATORY - MEDICINE [facility] [place] [facility] Sep 29, 2023 01:00 PM AMBULATORY - PSYCHIATRY [facility] [place] [facility] Oct 13, 2023 08:00 AM AMBULATORY - MEDICINE [facility] [place] [facility] Oct 13, 2023 01:00 PM AMBULATORY - PSYCHIATRY [facility] [place] [facility] Oct 14, 2023 08:00 AM AMBULATORY - MEDICINE [facility] [place] [facility] Oct 20, 2023 01:00 PM AMBULATORY - PSYCHIATRY [facility] [place] [facility] Oct 27, 2023 01:00 PM AMBULATORY - PSYCHIATRY [facility] [place] [facility] Active, Pending, and Scheduled Orders This [...] (SST-GOLD) SERUM SP [facility] [place] [facility] Social History: Smoking Status (Most current) [...] 19, 2023 01:00 PM VA-TOBACCO NEVER USED [place] [facility] [place] [facility] Tobacco Use History This section includes a history of the smoking, or tobacco-related health factors, that were collected on or before the date of the Encounter. The data comes from the [place] facility where the Encounter took place. Date/Time Smoking Status/Tobacco Use Comment F acility June 17, 2022 01:00 PM VA-TOBACCO NEVER USED [place] [facility] [place] [facility] Jul 16, 2021 01:00 PM VA-TOBACCO NEVER USED [facility] [place] [facility] July 03, 2020 01:00 PM VA-TOBACCO NEVER USED [place] [facility] [place] [facility] Jul 11, 2019 02:57 PM VA-TOBACCO NEVER USED [place] [facility] [place] [facility] Jan 14, 2019 08:50 AM VA-TOBACCO NEVER USED [facility] [place] [facility] Mar 04, 2018 01:20 PM VA-TOBACCO NEVER USED [facility] [place] [facility] May 27, 2017 11:01 AM LIFETIME NON-TOBACCO USER [facility] [place] [facility] May 20, 2016 10:51 AM LIFETIME NON-TOBACCO USER [facility] [place] [facility] May 03, 2015 01:13 PM LIFETIME NON-TOBACCO USER [place] [facility] [place] [facility] Advance Directives: All historical and [...] 2019 ADVANCE DIRECTIVE MIGDALIA MILES [place] [facility] Apr 14, 2019 ADVANCE DIRECTIVE RAFAL BULLARD [place] [facility] Radiology Reports: +/- 30 days of [...] 08:42 AM ECHOGRAM ABDOMEN LTD: PRASANTH GONZALES [id number] -1945 M Ex Date: JUN 05, 2023@08:42 Req Phys: SUBHA VELAZQUEZ Loc: CWM/NO/PACT EIGHT (Req'g Loc) Img Loc: ULTRASOUND Service: Unknown (Case [id number] COMPLETE) ECHOGRAM ABDOMEN LTD (US Detailed) CPT:25695 Reason for Study: h/o hep c Clinical History: Report Status: Verified Date Reported: JUN 05, 2023 Date Verified: JUN 05, 2023 Souvenir Assembler E-Sig: Report: ECHOGRAM ABDOMEN LTD HISTORY: 77-year-old [...] No ascites. READING PHYSICIAN: Han Godinez MD -[id number] 06/05/2023 16:18 EDT [facility] National Teleradiology Program [phone] (For Medical Practitioner Use Only) Attention Patients / Veterans: If you have questions or concerns about these test results, please contact your ordering provider or primary care team. Primary Diagnostic Code: NO ALERT REQUIRED Primary Interpreting Staff: RADIOLOGY,OUTSIDE SERVICE, Staff Physician / RADIOLOGY,OUTSIDE SERVICE [place] [facility] [place] [facility] Encounter Notes: All associated encounter notes This section contains the clinical notes associated to the Encounter. Date/Time Encounter Note(s) Provider Source Jun 09, 2023 09:59 AM SLEEP MEDICINE NOT E: LOCAL TITLE: SLEEP DISORDER INITIAL CONSULT NOTE STANDARD TITLE: SLEEP MEDICINE NOTE DATE OF NOTE: JUN 09, 2023@09:59 ENTRY DATE: JUN 09, 2023@09:59:39 AUTHOR: ANNIE CONRAD EXP COSIGNER: URGENCY: STATUS: COMPLETED SLEEP MEDICINE TELEMEDICINE CONSULT (CVT) This visit was conducted in CVT clinic. 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 He presents for follow up. He was first seen at our clinic in Oct 2022. He was curious about the Inspire device. But [place] showed [place] obstructive sleep apnea with significant central apneic events. So given his central apneas he was not a candidate for Inspire. He was amenable to re-try CPAP therapy so a titration study was done in Jan 2023 which showed reduced overall sleep time with low total sleep time on each setting tried which included ASV. He subsequently had an echo which showed a normal EF of 65%. As such, he was set up with ASV about a month ago. Download shows 12/20 days of usage, with a residual AHI of 4/hr. Air leaks are elevated at 41 LPM. I can see that it's going to work down the road. He reports that he feels better overall in his sleep. He is using the Airfit P10 nasal pillows, which he really likes. He finds ASV to be much more comfortable. Current sleep-wake cycle: Bedtime: 10pm Sleep latency: 10 min # of awakenings/how lonx/night to urinate, SL immediate (down from 3- 4x/night) Rise time: 4:30am, OOB by 5am Estimated nocturnal sleep: 6hr Bedpartner: Napping: no Drowsy driving: no EPWORTH SLEEPINESS SCALE: TOTAL 02/01 Sitting and Reading 2 score Watching Television 2 score Sitting inactive in a public place 1 score Sitting as a passenger in a car 1 hour without a break 1 score Lying down to rest in the afternoon _3 score Sitting and talking to someone ___ 1 score Sitting quietly after lunch without alcohol 2 score In a car, stopped for a few minutes in traffic 0 score Pertinent Social Hx: Caffeine: 2 cups of coffee in the morning ETOH: no Smoking: never 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 Lacunar infarction on MRI, silent, has seen [facility] neuro- Dr. Kvng Camacho 3. Contact with and (Suspected) Exposure to Water Pollution [facility] 4. Exposure to potentially hazardous substance +AO, +[facility] 5. COPD - Chronic Obstructive Pulmonary Disease ([facility] [id number]) asthma 6. Allergic Rhinitis ([facility] [id number]) 7. Peripheral vascular disease 8. Back pain 9. Bladder cancer 2017, high grade, Dr. Hester - [facility] cystoscopies q3 mos 2018 Status post 2 surgeries and BCG treatment Recurrence of tumor chemo for 6 weeks 10. Hyperlipidemia 11. Sleep apnea does not tolerate cpap 12. Mood disorder with depressive features due to general medical condition recent diagnosis of Bladder Ca 13. Hard of hearing 14. Chronic post-traumatic stress disorder MEDS: ALBUTEROL 90MCG (CFC-F) 200D ORAL INHL AMOXICILLIN 500MG CAP EZETIMIBE 10MG TAB METOPROLOL SUCCINATE 25MG SA TAB THIAMINE 50MG TAB BUDESONIDE 160/FORMOTER 4.5MCG 120D INH DICLOFENAC NA 1% TOP GEL ASPIRIN TAB,EC, NON-VA (Patient/Family Reported) FISH OIL 500MG DHA/EPA CAP,ORAL, NON-VA (Patient/Family Reported) VITAMIN D3 (CHOLECALCIFEROL) TAB, NON-VA (Patient/Family Reported) GLUCOSAMINE/CHONDROITIN CAP/TAB, NON-VA (Patient/Family Reported) ACETAMINOPHEN TAB, NON-VA (Patient/Family Reported) ALLERGIES: atorvastatin PE: 05/21/23 Wt: 230.00 lb (104.33 kg) Body Mass Index: 32* GEN: well appearing, in NAD HEENT: NC/AT, neck supple, sclera anicteric NEURO: awake, alert PSYCH: normal mood and affect TTE 04/22/23 reviewed Normal LVEF 65% RV nl size and function mild MR borderline dilated ascending aorta PRIOR SLEEP STUDIES: Positive Airway Pressure Titration Polysomnography Report [facility] Patient: PRASANTH GONZALES : 1945 Gender: Male BMI: 33.3 Study Date: 01/24/2023 Referring physician: DR HUERTA Indications: Treatment of Sleep Apnea. Symptoms: Witnessed apneas [place] sleepiness scale: 1524 Co-morbidities: Bladder cancer, COPD, PTSD, combined obstructive and central sleep apnea Diagnosis: Obstructive Sleep Apnea 327.23 IMPRESSION: 1. Study had reduced overall sleep [...] prescribed and the patient will be followed. PAP TABLE: I/E/O2 TST REM AHI OAs Yashira O2 min. Mean O2 5/5/0 0.1 0.0 0.0 0 0 93 94 7/7/0 8.4 0.0 0.0 0 0 92 93 9//0 3.0 0.0 0.0 0 0 93 94 BiPAP-ST TABLE: I/E/RR TST REM AHI OAs Yashira O2 min. Mean O2 10/15/11 8.3 0.0 14.5 0 0 92 94 12/15/11 4.2 0.0 57.6 0 0 92 94 12/14/13 0.0 0.0 0.0 0 0 - - 12/15/15 8.1 0.0 29.8 0 0 90 93 22/08/15 13.6 0.0 0.0 0 0 91 93 21/08/17 24.4 0.0 0.0 0 0 92 93 ASV PAP TABLE: MaxPs/E/MinPs TST REM AHI OAs Yashira O2 min. Mean O2 23.5 7.0 2.6 0 0 90 92 17.0 0.0 0.0 0 0 90 92 PRASANTH GONZALES 05/27/2023 - 06/06/2023 : 1945 Age: 77 years [address] Compliance Report Compliance Payor [place] [facility] Usage 05/27/2023 - 06/06/2023 Usage days 11/11 days (100%) >= 4 hours 11 days (100%) < 4 hours 0 days (0%) Usage hours 58 hours 52 minutes Average usage (total days) 5 hours 21 minutes Average usage (days used) 5 hours 21 minutes Median usage (days used) 5 hours 27 minutes Total used hours (value since last reset - 06/06/2023) 58 hours AirCurve 10 ASV Serial number [id number] Mode ASV EPAP 7 cmH2O Min PS 3 cmH2O Max PS 15 cmH2O Therapy Leaks - L/min Median: 13.6 95th percentile: 40.6 Maximum: 51.5 Events per hour AI: 0.4 HI: 3.7 AHI: 4.1 Impression: 77 year old with 1) Moderate mixed obstructive and central sleep apnea, previously failed CPAP, now newly on ASV with excellent daily adherence over the past 11 days, perceiving benefits with use (significantly reduced nocturia) and has good efficacy with therapy (residual AHI 4/hr). Only minor issue is the air leaks coming from his nasal pillows. 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 /rosio/ ANNIE CONRAD MD ATTENDING Signed: 06/09/2023 10:00 ANNIE CONRAD [facility]
--- OUTSIDE RECORDS SUMMARY | 2024-02-16 09:09 | XMS_ITS | Encounter Summary ---
Author Name [facility] [place] [facility] [place] [facility] [place] Address [address] [place] [address] Care Team Providers Care Mold Repairer Name Role Phone SUBHA VELAZQUEZ Primary Care [...] GREGORY DIOP Sep 15, 2011 GREGORY PUGA [id number] PAULA GONZALES PATIENT [facility] [place] MEDICARE SUPPLEMEN [facility] Aug 09, 2017 [id number] [phone] PAULA GONZALES PATIENT [facility] [place] MEDICARE [facility]MEN [facility] SUPP PL Aug 09, 2017 [id number] PAULA GONZALES PATIENT MEDICARE (WNR) MEDICARE (M) PART A Nov 10, 2019 PART A [id number] PAULA GONZALES PATIENT MEDICARE (WNR) MEDICARE (M) PART B Apr 09, 2010 PART B [id number] PAULA GONZALES PATIENT MEDICARE (WNR) MEDICARE (M) PART B Apr 09, 2010 PART B [id number] PAULA GONZALES PATIENT MEDICARE (WNR) MEDICARE (M) PART B Apr 09, 2010 PART B [id number] PAULA GONZALES PATIENT MEDICARE (WNR) MEDICARE (M) PART A Nov 09, 2009 PART A [id number] PAULA GONZALES PATIENT MEDICARE (WNR) MEDICARE (M) PART A Nov 09, 2009 PART A [id number] PAULA GONZALES PATIENT Selected Encounter This section includes the information on record at [place] for the Encounter. Date/Time Encounter Type Encounter Description Reason Provider Source May 22, 2023 07:52 AM Outpatient Encounter PROSTHETICS/ORTHOTI MIYA ANNE Encounter Template Text not used by [place] Plan of Treatment: Future Appointments (+ 6 [...] 26, 2023 01:00 PM AMBULATORY - [place]IATRY [place] [facility] [place] [place] [facility] Jun 02, 2023 01:00 PM AMBULATORY - PSYCHIATRY [place] [facility] [facility] Jun 05, 2023 09:00 AM AMBULATORY - NONE [place] [facility] [place] [facility] Jun 09, 2023 09:30 AM AMBULATORY - MEDICINE [place] [facility] [place] [facility] Jun 09, 2023 09:31 AM AMBULATORY - MEDICINE [facility] [place] [facility] June 30, 2023 01:00 PM AMBULATORY - PSYCHIATRY [place] [facility] [place] [facility] Jul 28, 2023 01:00 PM AMBULATORY - PSYCHIATRY [place] [facility] [facility] Aug 04, 2023 01:00 PM AMBULATORY - PSYCHIATRY [place] [facility] [facility] Aug 11, 2023 09:00 AM AMBULATORY - MEDICINE [place] [facility] [facility] Aug 11, 2023 01:00 PM AMBULATORY - PSYCHIATRY [place] [facility] [facility] Aug 17, 2023 10:00 AM AMBULATORY - REHAB MEDICIN E [place] [facility] [place] [facility] Sep 01, 2023 01:00 PM AMBULATORY - PSYCHIATRY [place] [facility] [facility] Sep 08, 2023 01:00 PM AMBULATORY - PSYCHIATRY [place] [facility] [place] [facility] Sep 15, 2023 01:00 PM AMBULATORY - PSYCHIATRY [place] [facility] [place] [facility] Sep 22, 2023 01:00 PM AMBULATORY - PSYCHIATRY [place] [facility] [facility] Sep 24, 2023 09:00 AM AMBULATORY - MEDICINE [place] [facility] [place] [facility] Sep 24, 2023 10:30 AM AMBULATORY - MEDICINE [place] [facility] [facility] Sep 24, 2023 11:30 AM AMBULATORY - REHAB MEDICIN E [place] [facility] [facility] Sep 25, 2023 01:00 PM AMBULATORY - MEDICINE [place] [facility] [facility] Sep 29, 2023 01:00 PM AMBULATORY - PSYCHIATRY [place] [facility] [facility] Active, Pending, and Scheduled Orders This section includes a listing of several types of active, pending, and scheduled orders, including clinic medications orders, diagnostic test orders, procedure orders and consult orders; where the start date of the order is 45 days before the date of the Encounter or 45 days after the date of theEncounter. The data comes from all [place] treatment facilities. Test Date/Time Test Type Test Details Facility Name May 21, 2023 12:00 AM Laboratory - Chemi stry Order HCV RNA PCR PANEL(WHV) BLOOD (SST-GOLD) [facility] [place] [facility] Social History: Smoking Status (Most [...] Date/Time Current Smoking Status Comment Louisa koenig May 19, 2023 01:00 PM VA-TOBACCO NEVER USED [place] [facility] [place] [facility] Tobacco Use History This section includes a history of the smoking, or tobacco-related health factors, that were collected on or before the date of the Encounter. The data comes from the [place] facility where the Encounter took place. Date/Time Smoking Status/Tobacco Use Comment Gisele accynthia June 17, 2022 01:00 PM VA-TOBACCO NEVER USED [place] [facility] [place] [facility] Jul 16, 2021 01:00 PM VA-TOBACCO NEVER USED [place] [facility] [facility] July 03, 2020 01:00 PM VA-TOBACCO NEVER USED [place] [facility] [facility] Jul 11, 2019 02:57 PM VA-TOBACCO NEVER USED [place] [facility] [facility] Jan 14, 2019 08:50 AM VA-TOBACCO NEVER USED [place] [facility] [facility] Mar 04, 2018 01:20 PM VA-TOBACCO NEVER USED [place] [facility] [place] [facility] May 27, 2017 11:01 AM LIFETIME NON-TOBACCO USER [place] [facility] [place] [facility] May 20, 2016 10:51 AM LIFETIME NON-TOBACCO USER [place] [facility] [facility] May 03, 2015 01:13 PM LIFETIME NON-TOBACCO USER [place] [facility] [facility] Advance Directives: All historical and current Section Date Range: From patient's date of to the date document was created. This section includes ALL of a patient's completed or amended [place] Advance and Rescinded Directives. The entries below indicate that a directive exists for the patient, but an actual copy is not included with this document. The data comes from all [place] facilities. Date Advance Directives Provider Source Nov 08, 2019 ADVANCE DIRECTIVE MIGDALIA MILES [place] [facility] [place] [facility] Apr 14, 2019 ADVANCE DIRECTIVE RAFAL BULLARD [place] C [facility] [place] [facility] Radiology Reports: +/- 30 days [...] the Encounter. The data comes from all [place] treatment facilities. Date/Time Radiology Report Provider Source Jun 05, 2023 08:42 AM ECHOGRAM ABDOMEN LTD: PRASANTH GONZALES [id number] -1945 M Ex Date: JUN 05, 2023@08:42 Req Phys: SUBHA VELAZQUEZ Loc: CWM/NO/PACT EIGHT (Req'g Loc) Img Loc: ULTRASOUND Service: Unknown (Case [id number] COMPLETE) ECHOGRAM ABDOMEN LTD ([place] Detailed) CPT:11514 Reason for Study: h/o hep c Clinical History: Report Status: Verified Date Reported: JUN 05, 2023 Date Verified: JUN 05, 2023 Pole Peeler E-Sig: Report: ECHOGRAM ABDOMEN Precipio HISTORY: 77-year-old male with a history of hepatitis C. COMPARISON: None. TECHNIQUE: Sonographic imaging of the right and left upper quadrants was performed at the local [facility]. 29 still images were received by the [place] National Teleradiology Program (NTP) for interpretation. FINDINGS: [...] No ascites. READING PHYSICIAN: Han Godinez MD -[id number] 06/05/2023 16:18 EDT [facility] National Teleradiology Program [phone] (For Medical Practitioner Use Only) Attention Patients / Veterans: If you have questions or concerns about these test results, please contact your ordering provider or primary care team. Primary Diagnostic Code: NO ALERT REQUIRED Primary Interpreting Staff: RADIOLOGY,OUTSIDE SERVICE, Staff Physician / RADIOLOGY,OUTSIDE SERVICE [facility] [place] [facility]
--- OUTSIDE RECORDS SUMMARY | 2024-02-16 09:09 | XMS_ITS | Encounter Summary ---
Author Name [facility] Organization [facility] [place] Address [address] [place] [address] Care Team Providers Care Plate Gauger Name Role Phone SUBHA VELAZQUEZ Primary Care Provider Ashanti brown Insurance Providers: All historical and current Section [...] GREGORY DIOP Sep 15, 2011 GREGORY PUGA [id number] PAULA GONZALES PATIENT [facility] MEDICARE SUPPLEMEN MARIA ELENA STATE AGENC Y Aug 09, 2017 [id number] [phone] JANETPAULA ANDREW PATIENT [facility] MEDICARE SUPPLEMEN MARIA ELENA [facility] AGENC Y SUPP PL Aug 09, 2017 [id number] PAULA GONZALES PATIENT MEDICARE (WNR) MEDICARE (M) PART A Nov 10, 2019 PART A [id number] PAULA GONZALES PATIENT MEDICARE (WNR) MEDICARE (M) PART B Apr 09, 2010 PART B [id number] PAULA GONZALES PATIENT MEDICARE (WNR) MEDICARE (M) PART B Apr 09, 2010 PART B [id number] PAULA GONZALES PATIENT MEDICARE (WNR) MEDICARE (M) PART B Apr 09, 2010 PART B [id number] PAULA GONZALES PATIENT MEDICARE (WNR) MEDICARE (M) PART A Nov 09, 2009 PART A [id number] PAULA GONZALES PATIENT MEDICARE (WNR) MEDICARE (M) PART A Nov 09, 2009 PART A [id number] [phone] PAULA GONZALES PATIENT Selected Encounter This section includes the information on record at [place] for the Encounter. Date/Time Encounter Type Encounter Description Reason Pro vider Source IHE Encounter Template Text not used by [place] Advance Directives: All historical and current Section [...] 08, 2019 ADVANCE DIRECTIVE MIGDALIA MILES [place] [facility] Apr 14, 2019 ADVANCE DIRECTIVE RAFAL BULLARD [place] [facility]
--- OUTSIDE RECORDS SUMMARY | 2024-02-16 09:09 | XMS_ITS | Encounter Summary ---
Author Name [facility] [place] [facility] [place] Address [address] [place] [address] Care Team Providers Care Sheet Layer Name Role Phone SUBHA VELAZQUEZ Primary Care [...] GREGORY DIOP Sep 15, 2011 GREGORY PUGA [id number] [phone] PAULA GONZALES PATIENT [facility] MEDICARE SUPPLEMEN [place] [employer] Aug 09, 2017 [id number] PAULA GONZALES PATIENT [facility] MEDICARE SUPPLEMEN [place] [employer] [employer] SUPP PL Aug 09, 2017 [id number] [phone] PAULA GONZALES PATIENT MEDICARE (WNR) MEDICARE (M) PART A Nov 10, 2019 PART A [id number] PAULA GONZALES PATIENT MEDICARE (WNR) MEDICARE (M) PART B Apr 09, 2010 PART B [id number] PAULA GONZALES PATIENT MEDICARE (WNR) MEDICARE (M) PART B Apr 09, 2010 PART B [id number] PAUAL GONZALES PATIENT MEDICARE (WNR) MEDICARE (M) PART B Apr 09, 2010 PART B [id number] PAULA GONZALES PATIENT MEDICARE (WNR) MEDICARE (M) PART A Nov 09, 2009 PART A [id number] PAULA GONZALES PATIENT MEDICARE (WNR) MEDICARE (M) PART A Nov 09, 2009 PART A [id number] PAULA GONZALES PATIENT Selected Encounter This section includes the information on record at [place] for the Encounter. Date/Time Encounter Type Encounter Description Reason Provider Source July 01, 2023 11:04 AM REPLACEMENT NASAL CUSHION TELEPHONE/MEDICIN E ICD-10-CM G47.33 Obstructive sleep apnea (adult) (pediatric) PATRICE SRIVASTAVA Mikhail Encounter Template Text not used by [place] Assessments - Encounter Diagnoses This section includes the primary and secondary diagnoses documented for the Encounter. Date/Time Primary/Secondary Diagnosis Diagnosis Name Provider Source July 01, 2023 11:04 AM PRIMARY Obstructive sleep apnea (adult) (pediatric) PATRICE [facility] Plan of Treatment: Future Appointments [...] Date/Time Appointment Type Appointme nt Facility Name Jul 28, 2023 01:00 PM AMBULATORY [facility] [place] [facility] Aug 04, 2023 01:00 PM AMBULATORY - [place]ATRY [place] [facility] [place] [facility] Aug 11, 2023 09:00 AM AMBULATORY - MEDICINE [facility] [place] [facility] Aug 11, 2023 01:00 PM AMBULATORY - PSYCHIATRY [place] [facility] [place] [facility] Aug 17, 2023 10:00 AM AMBULATORY - REHAB MEDICIN E [place] [facility] [place] [facility] Sep 01, 2023 01:00 PM AMBULATORY - PSYCHIATRY [place] [facility] [place] [facility] Sep 08, 2023 01:00 PM AMBULATORY - PSYCHIATRY [place] [facility] [place] [facility] Sep 15, 2023 01:00 PM AMBULATORY - PSYCHIATRY [place] [facility] [place] [facility] Sep 22, 2023 01:00 PM AMBULATORY - PSYCHIATRY [place] [facility] [place] [place] [facility] Sep 24, 2023 09:00 AM AMBULATORY - MEDICINE [facility] [place] [facility] Sep 24, 2023 10:30 AM AMBULATORY - MEDICINE [place] [facility] [place] [facility] Sep 24, 2023 11:30 AM AMBULATORY - REHAB MEDICIN E [place] [facility] [place] [facility] Sep 25, 2023 01:00 PM AMBULATORY - MEDICINE [place] [facility] [place] [facility] Sep 29, 2023 01:00 PM AMBULATORY - PSYCHIATRY [place] [facility] [place] [facility] Oct 13, 2023 08:00 AM AMBULATORY - MEDICINE [place] [facility] [place] [facility] Oct 13, 2023 01:00 PM AMBULATORY - PSYCHIATRY [place] [facility] [place] [facility] Oct 14, 2023 08:00 AM AMBULATORY - MEDICINE [facility] [place] [facility] Oct 20, 2023 01:00 PM AMBULATORY - PSYCHIATRY [place] [facility] [place] [facility] Oct 27, 2023 01:00 PM AMBULATORY - PSYCHIATRY [place] [facility] [place] [facility] Nov 03, 2023 01:00 PM AMBULATORY - PSYCHIATRY [place] [facility] [place] [facility] Active, Pending, and Scheduled Orders [...] RNA PCR PANEL(WHV) BLOOD (SST-GOLD) SERUM SP [place] [facility] [place] [facility] Social History: Smoking Status (Most [...] VA-TOBACCO NEVER USED [place] [facility] [place] [facility] Tobacco Use History This section includes a history of the smoking, or tobacco-related health factors, that were collected on or before the date of the Encounter. The data comes from the [place] facility where the Encounter took place. Date/Time Smoking Status/Tobacco Use Comment F accynthia June 17, 2022 01:00 PM VA-TOBACCO NEVER USED [place] [facility] [place] [facility] Jul 16, 2021 01:00 PM VA-TOBACCO NEVER USED [place] [facility] [facility] July 03, 2020 01:00 PM VA-TOBACCO NEVER USED [place] [facility] [facility] Jul 11, 2019 02:57 PM VA-TOBACCO NEVER USED [place] [facility] [place] [facility] Jan 14, 2019 08:50 AM VA-TOBACCO NEVER USED [place] [facility] [place] [facility] Mar 04, 2018 01:20 PM VA-TOBACCO NEVER USED [place] [facility] [facility] May 27, 2017 11:01 AM LIFETIME NON-TOBACCO USER [place] [facility] [place] [facility] May 20, 2016 10:51 AM LIFETIME NON-TOBACCO USER [place] [facility] [facility] May 03, 2015 01:13 PM LIFETIME NON-TOBACCO USER [place] [facility] [place] [facility] Advance Directives: All historical and [...] ADVANCE DIRECTIVE MIGDALIA MILES [place] CN[facility] Apr 14, 2019 ADVANCE DIRECTIVE RAFAL BULLARD [place] [facility] Radiology Reports: +/- 30 days of [...] Provider Source Jun 05, 2023 08:42 AM [employer]: JANETPRASANTH Mayo [id number] -1945 M Exm Date: JUN 05, 2023@08:42 Req Phys: SUBAH VELAZQUEZ Loc: CWM/NO/PACT EIGHT (Req'g Loc) Img Loc: ULTRASOUND Service: Unknown (Case [id number] COMPLETE) [employer] ([place] Detailed) CPT:60599 Reason for Study: h/o hep c Clinical History: Report Status: Verified Date Reported: JUN 05, 2023 Date Verified: JUN 05, 2023 Retail Support Associate E-Sig: Report: [employer] HISTORY: 77-year-old male with a history of hepatitis C. COMPARISON: None. TECHNIQUE: Sonographic imaging of the right and left upper quadrants was performed at the local [place] facility. 29 still images were received by [...] No ascites. READING PHYSICIAN: Han Godinez MD -[id number] 06/05/2023 16:18 EDT [facility] National Teleradiology Program [phone] (For Medical Practitioner Use Only) Attention Patients / Veterans: If you have questions or concerns about these test results, please contact your ordering provider or primary care team. Primary Diagnostic Code: NO ALERT REQUIRED Primary Interpreting Staff: RADIOLOGY,OUTSIDE SERVICE, Staff Physician / RADIOLOGY,OUTSIDE SERVICE [facility] Encounter Notes: All associated encounter notes This section contains the clinical notes associated to the Encounter. Date/Time Encounter Note(s) Provider Source July 01, 2023 11:04 AM RESPIRATORY THERAP Y NOTE: LOCAL TITLE: RESPIRATORY THERAPY NOTE(BLANK) STANDARD TITLE: RESPIRATORY THERAPY NOTE DATE OF NOTE: JULY 01, 2023@11:04 ENTRY DATE: JULY 01, 2023@11:05:04 AUTHOR: PATRICE SRIVASTAVA EXP COSIGNER: URGENCY: STATUS: COMPLETED Telephone Coding and Documentation: Diagnosis: Sleep Apnea Actual time spent with Patient via telephone: 15 minutes. diagnosed with sleep apnea called to request 12 cushions for his P10 nasal pillows. They will be sent via [facility]. Otherwise therapy is going well and he has no further needs. [employer] Compliance Report Usage 06/01/2023 - 06/30/2023 Usage days 27/30 days (90%) >= 4 hours 22 days (73%) < 4 hours 5 days (17%) Usage hours 129 hours 29 minutes Average usage (total days) 4 hours 19 minutes Average usage (days used) 4 hours 48 minutes Median usage (days used) 5 hours 1 minutes Total used hours (value since last reset - 06/30/2023) 155 hours [employer] 10 ASV Serial number [id number] Mode ASV EPAP 7 cmH2O Min PS 3 cmH2O Max PS 15 cmH2O Therapy Leaks - L/min Median: 18.0 95th percentile: 39.8 Maximum: 54.1 Events per hour AI: 0.7 HI: 5.6 AHI: 6.3 /rosio/ PATRICE SRIVASTAVA RESPIRATORY THERAPIST Signed: 07/01/2023 11:08 PATRICE SRIVASTAVA [facility]
--- OUTSIDE RECORDS SUMMARY | 2024-02-16 09:09 | XMS_ITS | Encounter Summary ---
Author Name [facility] [place] Organization [place] Address [address] [place] [address] Care Team Providers Care Forming Machine Tender Name Role Phone SUBHA VELAZQUEZ Primary Care [...] Relationship to Policy Bryson GREGORY PUGA-WN R [place] SPECIAL CLASS GREGORY DIOP Sep 15, 2011 GREGROY PUGA [id number] [phone] PAULA GONZALES PATIENT [facility] MEDICARE SUPPLEMEN [place] [employer] Aug 09, 2017 [id number] PAULA GONZALES PATIENT [facility] MEDICARE SUPPLEMEN MARIA ELENA [facility] AGENC [facility] SUPP [facility] Aug 09, 2017 [id number] PAULA GONZALES PATIENT MEDICARE (WNR) MEDICARE (M) PART A Nov 10, 2019 PART A [id number] PAULA GONZALES PATIENT MEDICARE (WNR) MEDICARE (M) PART B Apr 09, 2010 PART B [id number] [id number] PAULA GONZALES PATIENT MEDICARE (WNR) MEDICARE (M) PART B Apr 09, 2010 PART B [id number] [id number] PAULA GONZALES PATIENT MEDICARE (WNR) MEDICARE (M) PART B Apr 09, 2010 PART B [id number] PAULA GONZALES PATIENT MEDICARE (WNR) MEDICARE (M) PART A Nov 09, 2009 PART A [id number] [id number] PAULA GONZALES PATIENT MEDICARE (WNR) MEDICARE (M) PART A Nov 09, 2009 PART A [id number] PAULA GONZALES PATIENT Selected Encounter This section includes the information on record at [place] for the Encounter. Date/Time Encounter Type Encounter Description Reason Provider Source Jun 09, 2023 09:31 AM OFFICE O/P EST MOD 30 MIN SLEEP MEDICINE ICD-10-CM G47.33 Obstructive sleep apnea (adult) (pediatric) ANNIE CONRAD Mikhail Encounter Template Text not used by [place] Assessments - Encounter Diagnoses This section includes the primary and secondary diagnoses documented for the Encounter. Date/Time Primary/Secondary Diagnosis Diagnosis Name Provider Source Jun 09, 2023 09:59 AM PRIMARY Obstructive sleep apnea (adult) (pediatric) ANNIE CONRAD [facility] Jun 09, 2023 09:59 AM SECONDARY Central sleep apnea in conditions classified elsewhere [facility] Plan of Treatment: Future Appointments (+ 6 months) and Future Tests (+/- 45 days) The Plan of Treatment section includes future care activities for the patient [facility] [place] [facility] This section includes future appointments and future orders which are active, pending or scheduled. Future Appointments This section includes appointments that were scheduled to occur 6 months from the date of the Encounter, up to a maximum of 20 appointments. The data comes from all [place] treatment facilities. Appointment Date/Time Appointment Type Appointme nt Facility Name June 30, 2023 01:00 PM AMBULATORY - PSYCHIATRY [place] [place] [facility] Jul 28, 2023 01:00 PM AMBULATORY - PSYCHIATRY [place] [facility] [facility] Aug 04, 2023 01:00 PM AMBULATORY - PSYCHIATRY [place] [facility] Aug 11, 2023 09:00 AM AMBULATORY - MEDICINE [place] C [facility] [place] [facility] Aug 11, 2023 01:00 PM AMBULATORY - PSYCHIATRY [place] [facility] [place] [facility] Aug 17, 2023 10:00 AM AMBULATORY - REHAB MEDICIN E [place] [facility] [place] [facility] Sep 01, 2023 01:00 PM AMBULATORY - PSYCHIATRY [place] [facility] [place] [facility] Sep 08, 2023 01:00 PM AMBULATORY - PSYCHIATRY [place] [facility] [place] [facility] Sep 15, 2023 01:00 PM AMBULATORY - PSYCHIATRY [place] [facility] [place] [facility] Sep 22, 2023 01:00 PM AMBULATORY - PSYCHIATRY [place] [facility] [place] [facility] Sep 24, 2023 09:00 AM AMBULATORY - MEDICINE [place] C [facility] [place] [facility] Sep 24, 2023 10:30 AM AMBULATORY - MEDICINE [place] [facility] [place] [facility] Sep 24, 2023 11:30 AM AMBULATORY - REHAB MEDICIN E [place] [facility] [place] [facility] Sep 25, 2023 01:00 PM AMBULATORY - MEDICINE [place] [facility] [place] [facility] Sep 29, 2023 01:00 PM AMBULATORY - PSYCHIATRY [place] [facility] [place] [facility] Oct 13, 2023 08:00 AM AMBULATORY - MEDICINE [place] [facility] [place] [facility] Oct 13, 2023 01:00 PM AMBULATORY - PSYCHIATRY [place] [facility] [place] [facility] Oct 14, 2023 08:00 AM AMBULATORY - MEDICINE [place] C [facility] [place] [facility] Oct 20, 2023 01:00 PM AMBULATORY - PSYCHIATRY [place] [facility] [place] [facility] Oct 27, 2023 01:00 PM AMBULATORY - PSYCHIATRY [place] [facility] [place] [facility] Active, Pending, and Scheduled Orders This section includes a listing of several types of active, pending, and scheduled orders, including clinic medications orders, diagnostic test orders, procedure orders and consult orders; where the start date of the order is 45 days before the date of the Encounter or 45 days after the date of theEncounter. The data comes from all [place] treatment facilities. Test Date/Time Test Type Test Details Facility Name May 21, 2023 12:00 AM Laboratory - Chemi stry Order HCV RNA PCR PANEL(WHV) BLOOD (SST-GOLD) SERUM SP [facility] Advance Directives: All historical and current Section Date Range: From patient's date of to the date document was created. This section includes ALL of a patient's completed or amended [place] Advance and Rescinded Directives. The entries below indicate that a directive exists for the patient, but an actual copy is not included with this document. The data comes from all [place] facilities. Date Advance Directives Provider Source Nov 08, 2019 ADVANCE DIRECTIVE MIGDALIA MILES [facility] Apr 14, 2019 ADVANCE DIRECTIVE JUAN MIGUELRAFAL [place] [facility] Radiology Reports: +/- 30 days of [...] the Encounter. The data comes from all [place] treatment facilities. Date/Time Radiology Report Provider Source Jun 05, 2023 08:42 AM [employer] ABD[employer]EN LTD: PRASANTH GONZALES [id number] -1945 M Ex Date: JUN 05, 2023@08:42 Req Phys: SUBHA VELAZQUEZ Loc: CWM/NO/PACT EIGHT (Req'g Loc) Img Loc: ULTRASOUND Service: Unknown (Case [id number] COMPLETE) [employer] ([place] Detailed) CPT:26522 Reason for Study: h/o hep c Clinical History: Report Status: Verified Date Reported: JUN 05, 2023 Date Verified: JUN 05, 2023 Nursing Student E-Sig: Report: [employer] HISTORY: 77-year-old male with a history of hepatitis C. COMPARISON: None. TECHNIQUE: Sonographic imaging of the right and left upper quadrants was performed at the local [place] facility. 29 still images were received by the [place] National Teleradiology Program (NTP) for interpretation. FINDINGS: [...] No ascites. READING PHYSICIAN: Han Godinez MD -[id number] 06/05/2023 16:18 EDT [facility] OrdrItradiology Program [phone] (For Medical Practitioner Use Only) Attention Patients / Veterans: If you have questions or concerns about these test results, please contact your ordering provider or primary care team. Primary Diagnostic Code: NO ALERT REQUIRED Primary Interpreting Staff: RADIOLOGY,OUTSIDE SERVICE, Staff Physician / [facility]TSIDE SERVICE [facility] Encounter Notes: All associated encounter notes This section contains the clinical notes associated to the Encounter. Date/Time Encounter Note(s) Provider Source Jun 09, 2023 09:37 AM SLEEP MEDICINE CON SULT: LOCAL TITLE: SLEEP DISORDER INITIAL CONSULT NOTE STANDARD TITLE: SLEEP MEDICINE CONSULT DATE OF NOTE: JUN 09, 2023@09:37 ENTRY DATE: JUN 09, 2023@09:38:08 AUTHOR: ANNIE CONRAD EXP COSIGNER: URGENCY: STATUS: [...] But his sleep Study from 07/01 in [place] showed moderate obstructive sleep apnea with significant [...] Drowsy driving: no EPWORTH SLEEPINESS SCALE: TOTAL 12/ Sitting and Reading 2 score Watching Television 2 score Sitting inactive in a public place 1 score Sitting as a passenger in a car 1 hour without a break 1 score Lying down to rest in the afternoon 3 score Sitting and talking to someone 1 score Sitting quietly after lunch without alcohol 2 score In a car, stopped for a few minutes in traffic 0 score Pertinent Social Hx: Caffeine: 2 cups of coffee in the morning ETOH: no Smoking: never 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 Lacunar infarction on MRI, silent, has seen Michael sarmiento- Dr. Kvng Camacho 3. Contact with and (Suspected) Exposure to Water Pollution [facility] 4. Exposure to potentially hazardous substance +AO, +[place] [facility] 5. COPD - Chronic Obstructive Pulmonary Disease ([facility] [id number]) asthma 6. Allergic Rhinitis ([facility] [id number]) 7. Peripheral vascular disease 8. Back pain 9. Bladder cancer 2017, high grade, Dr. Hester - [facility] cystoscopies q3 mos 2018 Status post [...] STUDIES: Positive Airway Pressure Titration Polysomnography Report [facility] Patient: PRASANTH GONZALES : 1945 Gender: Male BMI: 33.3 Study Date: 01/24/2023 Referring physician: DR HUERTA Indications: Treatment of Sleep Apnea. Symptoms: Witnessed apneas [place] sleepiness scale: 15/24 Co-morbidities: Bladder cancer, COPD, PTSD, combined obstructive [...] 8.4 0.0 0.0 0 0 92 93 9/9/0 3.0 0.0 0.0 0 0 93 94 BiPAP-ST TABLE: I/E/RR TST REM AHI OAs Yashira O2 min. Mean O2 12 8.3 0.0 14.5 0 0 92 94 12 4.2 0.0 57.6 0 0 92 94 12/14/14 0.0 0.0 0.0 0 0 - - 16 8.1 0.0 29.8 0 0 90 93 16 13.6 0.0 0.0 0 0 91 93 18 24.4 0.0 0.0 0 0 92 93 ASV PAP TABLE: MaxPs/E/MinPs TST REM AHI OAs Yashira O2 min. Mean O2 15//3 23.5 7.0 2.6 0 0 90 92 15/3 17.0 0.0 0.0 0 0 90 92 PRASANTH GONZALES 05/27/2023 - 06/06/2023 : 1945 Age: 77 years [place] Compliance Report Compliance Payor [place] [facility] Usage 05/27/2023 - 06/06/2023 Usage days [...] 58 hours [employer] 10 ASV Serial number [id number] Mode ASV EPAP 7 cmH2O Min PS [...] his nasal pillows. 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
--- OUTSIDE RECORDS SUMMARY | 2024-02-16 09:09 | XMS_ITS | Encounter Summary ---
Author Name [facility] Address [address] [place] [address] Care Team Providers Care Nutrition Therapist Name Role Phone SUBHA VELAZQUEZ Primary Care [...] GREGORY DIOP Sep 15, 2011 GREGORY PUGA [id number] [phone] PAULA GONZALES PATIENT [facility] [employer] [facility] [employer] Aug 09, 2017 [id number] PAULA GONZALES PATIENT [facility] [facility] SUPP PL Aug 09, 2017 [id number] PAULA GONZALES PATIENT MEDICARE (WNR) MEDICARE (M) PART A Nov 10, 2019 PART A [id number] PAULA GONZALES PATIENT MEDICARE (WNR) MEDICARE (M) PART B Apr 09, 2010 PART B [id number] PAULA GONZALES PATIENT MEDICARE (WNR) MEDICARE (M) PART B Apr 09, 2010 PART B [id number] PAULA GONZALES PATIENT MEDICARE (WNR) MEDICARE (M) PART B Apr 09, 2010 PART B [id number] [phone] PAULA GONZALES PATIENT MEDICARE (WNR) MEDICARE (M) PART A Nov 09, 2009 PART A [id number] PAULA GONZALES PATIENT MEDICARE (WNR) MEDICARE (M) PART A Nov 09, 2009 PART A [id number] PAULA GONZALES PATIENT Selected Encounter This section includes the information on record at [place] for the Encounter. Date/Time Encounter Type Encounter Description Reason Provider Source May 07, 2023 02:29 PM Outpatient Encounter PROSTHETICS/ORTHOTI MIYA ANNE Encounter Template Text not used by [place] Plan of Treatment: Future Appointments (+ 6 months) and Future Tests (+/- 45 days) The Plan of Treatment section includes [facility] care activities [facility] the [facility]. This section includes future appointments [...] 12, 2023 01:00 PM AMBULATORY - [place]IATRY [facility] [place] [facility] May 19, 2023 01:00 PM AMBULATORY - PSYCHIATRY [facility] [place] [facility] May 21, 2023 02:00 PM AMBULATORY - MEDICINE [facility] [place] [facility] May 26, 2023 01:00 PM AMBULATORY - PSYCHIATRY [facility] [place] [facility] Jun 02, 2023 01:00 PM [facility] [place] [facility] Jun 05, 2023 09:00 AM AMBULATORY - NONE [facility] [place] [facility] Jun 09, 2023 09:30 AM AMBULATORY - MEDICINE [facility] [place] [facility] Jun 09, 2023 09:31 AM AMBULATORY - MEDICINE [facility] June 30, 2023 01:00 PM AMBULATORY - PSYCHIATRY [facility] [place] [facility] Jul 28, 2023 01:00 PM AMBULATORY - PSYCHIATRY [facility] [place] [facility] Aug 04, 2023 01:00 PM AMBULATORY - PS[facility]CHIATRY [facility] [place] [facility] Aug 11, 2023 09:00 AM AMBULATORY - MEDICINE [facility] [place] [facility] Aug 11, 2023 01:00 PM AMBULATORY - PSYCHIATRY [facility] [place] [facility] Aug 17, 2023 10:00 AM AMBULATORY - REHAB MEDICIN E [facility] [place] [facility] Sep 01, 2023 01:00 PM AMBULATORY - PSYCHIATRY [facility] [place] [facility] Sep 08, 2023 01:00 PM AMBULATORY - PSYCHIATRY [facility] [place] [facility] Sep 15, 2023 01:00 PM AMBULATORY - PSYCHIATRY [facility] [place] [facility] Sep 22, 2023 01:00 PM AMBULATORY - PSYCHIATRY [facility] [place] [facility] Sep 24, 2023 09:00 AM AMBULATORY - MEDICINE [facility] [place] [facility] Sep 24, 2023 10:30 AM AMBULATORY - MEDICINE [facility] [place] [facility] Active, Pending, and Scheduled Orders This section includes a listing of several types of active, pending, and scheduled orders, including clinic medications orders, diagnostic test orders, procedure orders and consult orders; where the start date of the order is 45 days before the date of the Encounter or 45 days after the date of theEncounter. The data comes from all [place] treatment facilities. Test Date/Time Test Type Test Details Facility Name May 21, 2023 12:00 AM Laboratory - Chemi stry Order HCV RNA PCR PANEL(WHV) BLOOD (SST-GOLD) SERUM SP [facility] [place] [facility] Social History: Smoking Status (Most current) [...] 17, 2022 01:00 PM VA-TOBACCO NEVER USED [facility] [place] [facility] Tobacco Use History This section includes a history of the smoking, or tobacco-related health factors, that were collected on or before the date of the Encounter. The data comes from the [place] facility where the Encounter took place. Date/Time Smoking Status/Tobacco Use Comment F acility Jul 16, 2021 01:00 PM VA-TOBACCO NEVER USED [facility] [place] [facility] July 03, 2020 01:00 PM VA-TOBACCO NEVER USED [facility] [place] [facility] Jul 11, 2019 02:57 PM VA-TOBACCO NEVER USED [facility] [place] [facility] Jan 14, 2019 08:50 AM VA-TOBACCO NEVER USED [facility] [place] [facility] Mar 04, 2018 01:20 PM VA-TOBACCO NEVER USED [facility] [place] [facility] May 27, 2017 11:01 AM LIFETIME NON-TOBACCO USER [facility] [place] [facility] May 20, 2016 10:51 AM LIFETIME NON-TOBACCO USER [facility] [place] [facility] May 03, 2015 01:13 PM LIFETIME NON-TOBACCO USER [facility] [place] [facility] Advance Directives: All historical and current [...] DIRECTIVE MIGDALIA MILES [facility] [place] [facility] Apr 14, 2019 ADVANCE DIRECTIVE RAFAL BULLARD [facility] Radiology Reports: +/- 30 days of [...] the Encounter. The data comes from all [place] treatment facilities. Date/Time Radiology Report Provider Source Jun 05, 2023 08:42 AM [employer]: PRASANTH GONZALES [id number] -[id number] M Exm Date: JUN 05, 2023@08:42 Req Phys: MARCUSSUBHA Pat Loc: CWM/NO/PACT EIGHT (Req'g Loc) Img Loc: ULTRASOUND Service: Unknown (Case [id number] COMPLETE) [employer] ([place] Detailed) CPT:62067 Reason for Study: h/o hep c Clinical History: Report Status: Verified Date Reported: JUN 05, 2023 Date Verified: JUN 05, 2023 Rn Call Center E-Sig: Report: ECHOCollisionable HISTORY: 77-year-old male with a history of hepatitis C. COMPARISON: None. TECHNIQUE: Sonographic imaging of the right and left upper quadrants was performed at the local [place] facility. 29 still images were received by the [place] National Teleradiology Program (NTP) for interpretation. FINDINGS: [...] No ascites. READING PHYSICIAN: Han Godinez MD -[id number] 06/05/2023 16:18 EDT [facility] National Telerad[facility] Program [phone] (For Medical Practitioner Use Only) Attention Patients / Veterans: If you have questions or concerns about these test results, please contact your ordering provider or primary care team. Primary Diagnostic Code: NO ALERT REQUIRED Primary Interpreting Staff: RADIOLOGY,OUTSIDE SERVICE, Staff Physician / RADIOLOGY,OUTSIDE SERVICE [facility]
--- OUTSIDE RECORDS SUMMARY | 2024-02-16 09:09 | XMS_ITS | Encounter Summary ---
Author Name [facility] [place] [facility] [place] Address [address] [place] [address] Care Team Providers Care Manager Licensing Name Role Phone SUBHA VELAZQUEZ Primary Care [...] Relationship to Policy Bryson GREGORY PUGA-WN R [place] [facility] [place] GREGORY DIOP Sep 15, 2011 GREGORY PUGA [id number] [phone] PAULA FENG PATIENT [facility] Aug 09, 2017 [id number] [phone] PAULA FENG PATIENT [facility] SUPPLEMEN [facility] SUPP [address] Aug 09, 2017 [id number] [phone] PAULA FENG PATIENT MEDICARE (WNR) MEDICARE (M) PART A Nov 10, 2019 PART A [id number] PAULA FENG PATIENT MEDICARE (WNR) MEDICARE (M) PART B Apr 09, 2010 PART B [id number] PAULA FENG PATIENT MEDICARE (WNR) MEDICARE (M) PART B Apr 09, 2010 PART B [id number] PAULA FENG PATIENT MEDICARE (WNR) MEDICARE (M) PART B Apr 09, 2010 PART B [id number] PAULA FENG PATIENT MEDICARE (WNR) MEDICARE (M) PART A Nov 09, 2009 PART A [id number] PAULA FENG PATIENT MEDICARE (WNR) MEDICARE (M) PART A Nov 09, 2009 PART A [id number] PAULA FENG PATIENT Selected Encounter This section includes the information on record at [place] for the Encounter. Date/Time Encounter Type Encounter Description Reason Provider Source June 30, 2023 01:00 PM PSYTX W PT 45 MINUTES [facility] - IND ICD-10-CM F43.10 Post-traumatic stress disorder, unspecified NATHAN KIRK Mikhail Encounter Template Text not used by [place] Assessments - Encounter Diagnoses This section includes the primary and secondary diagnoses documented for the Encounter. Date/Time Primary/Secondary Diagnosis Diagnosis Name Provider Source July 02, 2023 09:56 AM PRIMARY Post-traumatic stress disorder, unspecified NATHAN KIRK [facility] Plan of Treatment: Future Appointments (+ 6 months) and Future Tests (+/- 45 days) The Plan of Treatment section includes future care activities for the patient from all [place] treatmentfacilities. This section includes future appointments and future orders which are active, pending or scheduled. Future Appointments This section includes appointments that were scheduled to occur 6 months from the date of the Encounter, up to a maximum of 20 appointments. The data comes from all [place] treatment facilities. Appointment Date/Time Appointment Type Appointme nt Facility Name Jul 28, 2023 01:00 PM AMBULATORY - [place]IATRY [place] [facility] [place] [facility] Aug 04, 2023 01:00 PM AMBULATORY - PSYCHIATRY [facility] [place] [facility] Aug 11, 2023 09:00 AM [facility]ULATORY [facility] [place] [facility] Aug 11, 2023 01:00 PM [facility] [place] [facility] Aug 17, 2023 10:00 AM AMBULATORY - [facility]AB [facility]ICIN [facility] [place] [facility] Sep 01, 2023 01:00 PM [facility]UL[facility] - [facility]IATRY [facility] [place] [facility] Sep 08, 2023 01:00 PM AMBULATORY - PS[facility]CHIATRY [facility] [place] [facility] Sep 15, 2023 01:00 PM AMBULATORY - PS[facility]CHIATRY [facility] [place] [facility] Sep 22, 2023 01:00 PM AMBULATORY - PS[facility]CHIATRY [facility] [place] [facility] Sep 24, 2023 09:00 AM AMBULATORY - MEDICINE [facility] [place] [facility] Sep 24, 2023 10:30 AM AMBULATORY - MEDICINE [facility] [place] [facility] Sep 24, 2023 11:30 AM AMBULATORY - REHAB MEDICIN E [facility] [place] [facility] Sep 25, 2023 01:00 PM AMBULATORY - MEDICINE [facility] [place] [facility] Sep 29, 2023 01:00 PM AMBULATORY - PSYCHIATRY [facility] [place] [facility] Oct 13, 2023 08:00 AM AMBULATORY - MEDICINE [facility] [place] [facility] Oct 13, 2023 01:00 PM AMBULATORY - PSYCHIATRY [facility] [place] [facility] Oct 14, 2023 08:00 AM AMBULATORY - MEDICINE [facility] [place] [facility] Oct 20, 2023 01:00 PM AMBULATORY - PSYCHIATRY [facility] [place] [facility] Oct 27, 2023 01:00 PM AMBULATORY - PSYCHIATRY [facility] [place] [facility] Nov 03, 2023 01:00 PM AMBULATORY - PSYCHIATRY [facility] [place] [facility] Active, Pending, and Scheduled Orders This section includes a listing of several types of active, pending, and scheduled orders, including clinic medications orders, diagnostic test orders, procedure orders and consult orders; where the start date of the order is 45 days before the date of the Encounter or 45 days after the date of theEncounter. The data comes from all [place] treatment facilities. Test Date/Time Test Type Test Details Facility Name May 21, 2023 12:00 AM Laboratory - Chemi stry Order HCV RNA PCR PANEL(WHV) BLOOD (SST-GOLD) SERUM SP [place] [facility] [place] [facility] Social History: Smoking Status (Most current) and Tobacco Use (All prior to encounter date) This section includes the most current, and the historical, smoking and tobacco- related health factors from the [place] facility where the Encounter took place. Current Smoking Status This section includes the most current smoking, or tobacco-related health factor, from the [place] facility where the Encounter took place. Date/Time Current Smoking Status Comment Louisa ity May 19, 2023 01:00 PM VA-TOBACCO NEVER USED [place] [facility] [place] [facility] Tobacco Use History This section includes a history of the smoking, or tobacco-related health factors, that were collected on or before the date of the Encounter. The data comes from the [place] facility where the Encounter took place. Date/Time Smoking Status/Tobacco Use Comment F accynthia June 17, 2022 01:00 PM VA-TOBACCO NEVER USED [facility] [place] [facility] Jul 16, 2021 01:00 PM VA-TOBACCO NEVER USED [facility] [place] [facility] July 03, 2020 01:00 PM VA-TOBACCO NEVER USED [facility] [place] [facility] Jul 11, 2019 02:57 PM VA-TOBACCO NEVER USED [facility] [place] [facility] Jan 14, 2019 08:50 AM VA-TOBACCO NEVER USED [facility] [place] [facility] Mar 04, 2018 01:20 PM VA-TOBACCO NEVER USED [facility] [place] [facility] May 27, 2017 11:01 AM LIFETIME NON-TOBACCO USER [facility] [place] [facility] May 20, 2016 10:51 AM LIFETIME NON-TOBACCO USER [facility] [place] [facility] May 03, 2015 01:13 PM LIFETIME NON-TOBACCO USER [facility] [place] [facility] Advance Directives: All historical and current Section Date Range: From patient's date of to the date document was created. This section includes ALL of a patient's completed or amended [place] Advance and Rescinded Directives. The entries below indicate that a directive exists for the patient, but an actual copy is not included with this document. The data comes from all [place] facilities. Date Advance Directives Provider Source Nov 08, 2019 ADVANCE DIRECTIVE MIGDALIA MILES [facility] Apr 14, 2019 ADVANCE DIRECTIVE RAFAL BULLARD [facility] Radiology Reports: +/- 30 days of [...] the Encounter. The data comes from all [place] treatment facilities. Date/Time Radiology Report Provider Source Jun 05, 2023 08:42 AM [email or web address] LTD: PRASANTH FENG [id number] M Exm Date: JUN 05, 2023@08:42 Req Phys: SUBHA VELAZQUEZ Loc: CWM/NO/PACT EIGHT (Req'g Loc) Img Loc: ULTRASOUND Service: Unknown (Case [id number] COMPLETE) [place] ([place] Detailed) CPT:56730 Reason for Study: h/o hep c Clinical History: Report Status: Verified Date Reported: JUN 05, 2023 Date Verified: JUN 05, 2023 Net Web Developer E-Sig: Report: [employer] ABDOMEN [employer] HISTORY: 77-year-old male with a history of hepatitis C. COMPARISON: None. TECHNIQUE: Sonographic imaging of the right and left upper quadrants was performed at the local [place] facility. 29 still images were received by the [place] National Teleradiology Program (NTP) for interpretation. FINDINGS: [...] No ascites. READING PHYSICIAN: Han Godinez MD -[id number] 06/05/2023 16:18 EDT [facility] National Teleradiology Program [phone] (For Medical Practitioner Use Only) Attention Patients / Veterans: If you have questions or concerns about these test results, please contact your ordering provider or primary care team. Primary Diagnostic Code: NO ALERT REQUIRED Primary Interpreting Staff: RADIOLOGY,OUTSIDE SERVICE, Staff Physician / RADIOLOGY,OUTSIDE SERVICE [facility] Encounter Notes: All associated encounter notes This section contains the clinical notes associated to the Encounter. Date/Time Encounter Note(s) Provider Source June 30, 2023 01:54 PM MENTAL HEALTH TREATMENT PLAN NOTE: LOCAL TITLE: MH TREATMENT PLAN STANDARD TITLE: MENTAL HEALTH TREATMENT PLAN NOTE DATE OF NOTE: JUNE 30, 2023@13:54:08 ENTRY DATE: JUNE 30, 2023@13:54:23 AUTHOR: NATHAN KIRK EXP COSIGNER: URGENCY: STATUS: COMPLETED MH TREATMENT PLAN - June, @ 01:54PM Visit Date: June, @ 13:00 - CWM/NO/VVC/MHC/YELENA MH FISH CHECKER: NATHAN KIRK / [facility] TEAM MEMBERS: NATHAN KIRK: PSYCHOLOGIST RISK ASSESSMENT (DANGER TO SELF AND OTHERS): Low risk to self or others Reports no SI/HI PATIENT'S STRENGTHS/ABILITIES: Self Identified: Expressed desire/motivation for change [place] PATIENT'S BARRIERS TO CARE: Lack of support network reports relationship, and marital issues MENTAL HEALTH DIAGNOSES AND RELEVANT MEDICAL CONDITIONS: Chronic post-traumatic stress disorder ([facility] [id number]) Mood disorder with depressive features due to general medical condition ([facility] [id number]) Sleep apnea ([facility] [id number]) TREATMENT PLAN: Problem: Problem/Need: [PTSD]: I have been experiencing the following post-traumatic stress symptoms: relationship problems, focus/conentration issues, sleep distrubances, irritability, avoidance. Goal: I want to reduce irritability, avoidance, relationship challneges, focus/concentration issues, disrupted sleep. Objective: I will learn how to increase my comfort with social situations. Progress will be measured through self-report Intervention: [PSYCHOTHERAPY] My provider will work with me to achieve this goal and objective through Psychotherapy Providers: NATHAN KIRK Time Frame: One time per week for 12 months Treating Specialty: Mental Health Clinic Renewal Date: 06/29/2024 Entered Treatment: 06/19/2016 @ 01:00PM Anticipated Discharge: 06/29/2024 Actual Discharge: None Intervention: Will meet with Psychologist twice per month for approximately 6 months. Providers: NATHAN KIRK Time Frame: One time per week for 12 months Treating Specialty: Mental Health Clinic Renewal Date: 06/29/2024 Entered Treatment: 06/19/2016 @ 01:00PM Anticipated Discharge: 06/29/2024 Actual Discharge: None Problem: Problem/Need: [SLEEP]: I have been experiencing the following sleep difficulties: is up 4-5 times per night. Goal: I want to improve quantity and quality of sleep. Objective: I will learn techniques to improve the amount of sleep I get from 3 hours, to 8 Progress will be measured through Sleep Hygience Intervention: [SPECIALIZED TECHNIQUE] My provider will train me to use the following tool: sleep Hygiene Providers: NATHAN KIRK Time Frame: Four times per month for 12 months Treating Specialty: Mental Health Clinic Renewal Date: 06/29/2024 Entered Treatment: 06/19/2016 @ 01:00PM Anticipated Discharge: 06/29/2024 Actual Discharge: None PARTICIPATION IN TREATMENT PLANNING: AGREED TO PLAN DISCUSSED. /rosio/ NATHAN KIRK, Ph.D Clinical Psychologist Signed: 06/30/2023 13:54 NATHAN KIRK [place] [facility] [place] [facility] June 30, 2023 01:25 PM MENTAL HEALTH DIAGNOSTIC STUDY NOTE: LOCAL TITLE: MENTAL HEALTH DIAGNOSTIC STUDY STANDARD TITLE: MENTAL HEALTH DIAGNOSTIC STUDY NOTE DATE OF NOTE: JUNE 30, 2023@13:25:06 ENTRY DATE: JUNE 30, 2023@13:25:06 AUTHOR: NATHAN KIRK EXP COSIGNER: URGENCY: STATUS: COMPLETED These assessments were completed by PRASANTH FENG via provider direct entry on 06/30/2023 1:24:07 PM. PTSD CHECKLIST (PCL-5) - WEEKLY Patient reported being bothered by the following over the past week: 1. Disturbing memories: A little bit 2. Disturbing dreams: Not at all 3. Re-experiencing events: A little bit 4. Cued distress: A little bit 5. Cued physical symptoms: Not at all 6. Avoiding internal reminders: A little bit 7. Avoiding external reminders: A little bit 8. Trouble with recall: A little bit 9. Negative beliefs: Not at all 10. Blaming self/others: Not at all 11. Negative feelings: Not at all 12. Loss of interest: Not at all 13. Feeling distant from others: A little bit 14. Feeling numb: A little bit 15. Feeling irritable: Not at all 16. Reckless behavior: Not at all 17. Being super-alert : Not at all 18. Feeling easily startled: Not at all 19. Difficulty concentrating: A little bit 20. Trouble sleeping: A little bit PCL-5 total score = 10 This measure assesses an individual's perception of [...] PCL-5 Weekly Total Score (past 180 days): 06/30/2023 10 05/19/2023 9 04/07/2023 3 /rosio/ NATHAN KIRK, Ph.D Clinical Psychologist Signed: 06/30/2023 14:16 NATHAN KIRK [place] [facility] [place] [facility] June 30, 2023 01:04 PM TELEHEALTH NOTE: LOCAL TITLE: [place] VIDEO CONNECT PSYCHOLOGY NOTE STANDARD TITLE: TELEHEALTH NOTE DATE OF NOTE: JUNE 30, 2023@13:04 ENTRY DATE: JUNE 30, 2023@13:04:38 AUTHOR: NATHAN KIRK COSIGNER: URGENCY: STATUS: COMPLETED [place] Video Connect (VVC) Standard Documentation VVC Clinician Resources Only: E911 (Emergency Call Relay Center): [phone] National Veterans Crisis Line - [address] [facility] Suicide Coordinator [phone], Ext. [phone]; Back-up Ext. [phone] [place] Police, CWRogelio, Luiz [phone] Introduction: Visit is being conducted by [place] [employer] [facility]. [place] identified with 2 identifiers: [X] Full Name [X] Date of [ ] VA ID Card Emergency Plan: confirmed and/or provided the following information in case of emergency or technology failure. PATIENT PHONE - PHONE NUMBER [CELLULAR] - Is patient phone number correct, if not, enter below: [place]'s phone number: PRASANTH FENG [address], [place], [address] [place]'s present location and address for appointment: [address] [place] [address]. [place] [address] [facility]'s emergency contact name and phone number: Layla Feng reported that location is private and safe: Yes Informed Consent: informed of the risks and benefits of Telehealth video care. [place] has the right to refuse video services. If refuses video visit, a [id number] visit will be scheduled. verbalized consent for this video visit: Yes [place] provided consent for any other persons present for visit: N/A If yes, who and relationship to patient: Secure visit: Visit was locked for security and privacy: Yes INFORMED CONSENT: Previously reviewed rights and limits of confidentiality, mandatory reporting situations, duty to warn and protect, Daniels Warning, (if treatment team finds patient to be an acute danger to themself or others, that. this information could be relayed to a court of law and presented to a postie), and DOD access for active-duty service members. [...] completion and review of the PCL-5 (Score: 10). [place] shared that he has been doing well since last session. However, he reported an increase in anxiety while attending his granddaughter's University graduation. He shared that the commencement speaker and a second guest speaker, brought politics into the speeches, and that some of the students expressed feeling detached from the ceremony, as a result. He stated, the content of the speeches for a graduation ceremony were inappropriate, and the focus was completely on politics and not the students, their achievements, or their future. stated that the experience brought back memories of his return home from [place]. The remainder of the session focused on coping skills and self-care. INTERVENTIONS: Psychotherapeutic Interventions: Limit news and triggering [...] PLAN FOR FOLLOW-UP: Next session planned for: 06/07/23 at 1:00pm Completed Clinical Reminder: Homelessness/Food Insecurity Screen: In the past 2 months, have you been living in stable housing that you own, rent, or stay in as part of a household? Yes - Living in stable housing. Are you worried or concerned that in the next 2 months you may NOT harvestable housing that you own, rent, or stay in as part of a household? No - Not worried about housing near future The [facility] reports the following: Within the past 12 months, you worried whether your food would run out before you got money to buy more. Never true Within the past 12 months, the food you bought just didn't last and you didn't have money to get more. Never true PCT Psychotherapy Tracking Today's psychotherapy session was part of a standardized episode of Other PTSD Psychotherapy (e.g. supportive therapy): Other: Supportive Measurement Based Care (MBC): MBC Act Following discussion of [place]'s reported outcomes, we discussed the impact on treatment goals. As a result the treatment plan will remain the same. /rosio/ NATHAN KIRK, Ph.D Clinical Psychologist Signed: 07/02/2023 09:56 NATHAN KIRK [facility]
--- OUTSIDE RECORDS SUMMARY | 2024-02-16 09:09 | XMS_ITS ---
Author Name [facility] [place] Address [address] [place] [address] Care Team Providers Care Drapery And Upholstery Estimator Name Role Phone SUBHA VELAZQUEZ Primary Care [...] GREGORY DIOP Sep 15, 2011 GREGORY PUGA [id number] PAULA GONZALES PATIENT [facility] MEDICARE SUPPLEMEN [facility] Aug 09, 2017 [id number] PAULA GONZALES PATIENT [facility] MEDICARE SUPPLEMEN MARIA ELENA [facility] AGENC Y SUPP PL Aug 09, 2017 [id number] [phone] PAULA GONZALES PATIENT MEDICARE (WNR) MEDICARE (M) PART A Nov 10, 2019 PART A [id number] PAULA GONZALES PATIENT MEDICARE (WNR) MEDICARE (M) PART B Apr 09, 2010 PART B [id number] [id number] PAULA GONZALES PATIENT MEDICARE (WNR) MEDICARE (M) PART B Apr 09, 2010 PART B [id number] [id number] PAULA GONZALES PATIENT MEDICARE (WNR) MEDICARE (M) PART B Apr 09, 2010 PART B [id number] PAULA GONZALES PATIENT MEDICARE (WNR) MEDICARE (M) PART A Nov 09, 2009 PART A [id number] PAULA GONZALES PATIENT MEDICARE (WNR) MEDICARE (M) PART A Nov 09, 2009 PART A [id number] [phone] PAULA GONZALES PATIENT Selected Encounter This section includes the information on record at [place] for the Encounter. Date/Time Encounter Type Encounter Description Reason Pro vider Source July 07, 2023 01:00 PM Outpatient [facility] Encounter Template Text not used by PA Plan of Treatment: Future Appointments (+ 6 months) and Future Tests (+/- 45 days) The Plan of Treatment section includes future care activities for the patient from [facility] This section includes future appointments and future [...] 28, 2023 01:00 PM AMBULATORY - PSYCHIATRY [place] [facility] [place] [facility] Aug 04, 2023 01:00 PM AMBULATORY - PSYCHIATRY [place] [facility] [place] [facility] Aug 11, 2023 09:00 AM AMBULATORY - MEDICINE [place] [facility] [place] [facility] Aug 11, 2023 01:00 PM AMBULATORY - PSYCHIATRY [place] [facility] [place] [facility] Aug 17, 2023 10:00 AM AMBULATORY - REHAB MEDICIN E [place] [facility] [place] [facility] Sep 01, 2023 01:00 PM AMBULATORY - PSYCHIATRY [place] [facility] [place] [facility] Sep 08, 2023 01:00 PM AMBULATORY - PSYCHIATRY [place] [facility] [place] [facility] Sep 15, 2023 01:00 PM AMBULATORY - PSYCHIATRY [place] [facility] [place] [facility] Sep 22, 2023 01:00 PM AMBULATORY - PSYCHIATRY [facility] [place] [facility] Sep 24, 2023 09:00 AM AMBULATORY - MEDICINE [place] [facility] [place] [facility] Sep 24, 2023 10:30 AM AMBULATORY - MEDICINE [place] [facility] [place] [facility] Sep 24, 2023 11:30 AM AMBULATORY - REHAB MEDICIN E [place] [facility] [place] [facility] Sep 25, 2023 01:00 PM AMBULATORY - MEDICINE [place] [facility] [place] [facility] Sep 29, 2023 01:00 PM AMBULATORY - PSYCHIATRY [facility] [place] [facility] Oct 13, 2023 08:00 AM AMBULATORY - MEDICINE [place] [facility] [place] [facility] Oct 13, 2023 01:00 PM AMBULATORY - PSYCHIATRY [place] [facility] [place] [facility] Oct 14, 2023 08:00 AM AMBULATORY - MEDICINE [place] [facility] [place] [facility] Oct 20, 2023 01:00 PM AMBULATORY - PSYCHIATRY [facility] [place] [facility] Oct 27, 2023 01:00 PM AMBULATORY - PSYCHIATRY [facility] [place] [facility] Nov 03, 2023 01:00 PM AMBULATORY - PSYCHIATRY [place] [facility] [place] [facility] Social History: Smoking Status (Most current) and Tobacco Use (All prior to encounter date) This section includes the most current, and the historical, smoking and tobacco- related health factors from the [place] facility where the Encounter took place. Current Smoking Status This section includes the most current smoking, or tobacco-related health factor, from the [place] facility where the Encounter took place. Date/Time Current Smoking Status Comment Louisa ity May 19, 2023 01:00 PM [facility]CO [facility] Tobacco Use History This section includes a history of the smoking, or tobacco-related health factors, that were collected on or before the date of the Encounter. The data comes from the [place] facility where the Encounter took place. Date/Time Smoking Status/Tobacco Use Comment F accynthia June 17, 2022 01:00 PM VA-TOBACCO NEVER USED [place] [facility] [place] [facility] Jul 16, 2021 01:00 PM VA-TOBACCO NEVER USED [place] [facility] [place] [facility] July 03, 2020 01:00 PM VA-TOBACCO NEVER USED [place] [facility] [place] [facility] Jul 11, 2019 02:57 PM VA-TOBACCO NEVER USED [place] [facility] [place] [facility] Jan 14, 2019 08:50 AM VA-TOBACCO NEVER USED [place] [facility] [place] [facility] Mar 04, 2018 01:20 PM VA-TOBACCO NEVER USED [place] [facility] [place] [facility] May 27, 2017 11:01 AM LIFETIME NON-TOBACCO USER [place] [facility] [place] [facility] May 20, 2016 10:51 AM LIFETIME NON-TOBACCO USER [place] [facility] [place] [facility] May 03, 2015 01:13 PM LIFETIME NON-TOBACCO USER [place] [facility] [place] [facility] Advance Directives: All historical and current Section [...] DIRECTIVE MIGDALIA MILES [place] [facility] [place] [facility] Apr 14, 2019 ADVANCE DIRECTIVE RAFAL BULLARD PA C [facility] [place] [facility] Encounter Notes: All associated encounter notes This section contains the clinical notes associated to the Encounter. Date/Time Encounter Note(s) Provider Source July 07, 2023 10:38 AM ADMINISTRATIVE NOT E: LOCAL TITLE: ADMINISTRATIVE NOTE STANDARD TITLE: ADMINISTRATIVE NOTE DATE OF NOTE: JULY 07, 2023@10:38 ENTRY DATE: JULY 07, 2023@10:38:08 AUTHOR: LISA ELLIOTT EXP COSIGNER: URGENCY: STATUS: COMPLETED Amsa attempted to contact regarding clinic cancelled appointment on . Left message on [employer]. /rosio/ LISA ELLIOTT ADVANCED MEDICAL RECORDS CLERK Signed: 07/07/2023 10:38 Receipt Acknowledged By: 07/08/2023 12:20 /rosio/ NATHAN KIRK, Ph.D Clinical Psychologist LEXI,LISA MARTINEZ [facility]
--- OUTSIDE RECORDS SUMMARY | 2024-02-16 09:09 | XMS_ITS | Encounter Summary ---
Author Name [facility] [place] Address [address] [place] [address] Care Team Providers Care Vp Emerging Media Name Role Phone SUBHA VELAZQUEZ Primary Care [...] GREGORY DIOP Sep 15, 2011 GREGORY PUGA [id number] [phone] PAULA GONZALES PATIENT [facility] MEDICARE SUPPLEMEN [facility] Aug 09, 2017 [id number] PAULA GONZALES PATIENT [facility] MEDICARE SUPPLEMEN MARIA ELENA [facility] AGENC Y SUPP [facility] Aug 09, 2017 [id number] [phone] PAULA GONZALES PATIENT MEDICARE (WNR) MEDICARE (M) PART A Nov 10, 2019 PART A [id number] PAULA GONZALES PATIENT MEDICARE (WNR) MEDICARE (M) PART B Apr 09, 2010 PART B [id number] [id number] PAULA GONZALES PATIENT MEDICARE (WNR) MEDICARE (M) PART B Apr 09, 2010 PART B [id number] PAULA GONZALES PATIENT MEDICARE (WNR) MEDICARE (M) PART B Apr 09, 2010 PART B [id number] PAULA GONZALES PATIENT MEDICARE (WNR) MEDICARE (M) PART A Nov 09, 2009 PART A [id number] PAULA GONZALES PATIENT MEDICARE (WNR) MEDICARE (M) PART A Nov 09, 2009 PART A [id number] [phone] PAULA GONZALES PATIENT Selected Encounter This section includes the information on record at [place] for the Encounter. Date/Time Encounter Type Encounter Description Reason Provider Source Jun 02, 2023 01:00 PM PSYTX W PT 45 MINUTES TELEPHONE ICD-10-CM F43.10 Post-traumatic stress disorder, unspecified NATHAN KIRK Mikhail Encounter Template Text not used by [place] Assessments - Encounter Diagnoses This section includes the primary and secondary diagnoses documented for the Encounter. Date/Time Primary/Secondary Diagnosis Diagnosis Name Provider Source Jun 02, 2023 01:00 PM PRIMARY Post-traumatic stress disorder, unspecified NATHAN KIRK [facility] Plan of Treatment: Future Appointments [...] AMBULATORY - NONE [place] [facility] [place] [facility] Jun 09, 2023 09:30 AM AMBULATORY - MEDICINE [place] [place] [facility] Jun 09, 2023 09:31 AM AMBULATORY - MEDICINE [facility] June 30, 2023 01:00 PM AMBULATORY - PS[facility]CHIATRY [facility] Jul 28, 2023 01:00 PM AMBULATORY - PSYCHIATRY [facility] [place] [facility] Aug 04, 2023 01:00 PM AMBULATORY - PSYCHIATRY [facility] [place] [facility] Aug 11, 2023 09:00 AM AMBULATORY - MEDICINE [facility] [place] [facility] Aug 11, 2023 01:00 PM AMBULATORY - PSYCHIATRY [facility] [place] [facility] Aug 17, 2023 10:00 AM AMBULATORY - REHAB MEDICIN E [facility] [place] [facility] Sep 01, 2023 01:00 PM AMBULATORY - PSYCHIATRY [facility] [place] [facility] Sep 08, 2023 01:00 PM AMBULATORY - PSYCHIATRY [facility] [place] [facility] Sep 15, 2023 01:00 PM AMBULATORY - PSYCHIATRY [facility] [place] [facility] Sep 22, 2023 01:00 PM AMBULATORY - PSYCHIATRY [facility] [place] [facility] Sep 24, 2023 09:00 AM AMBULATORY - MEDICINE [facility] [place] [place] [facility] Sep 24, 2023 10:30 AM AMBULATORY - MEDICINE [facility] [place] [place] [facility] Sep 24, 2023 11:30 AM AMBULATORY - REHAB MEDICIN E [facility] [place] [facility] Sep 25, 2023 01:00 PM AMBULATORY - MEDICINE [facility] [place] [facility] Sep 29, 2023 01:00 PM AMBULATORY - PSYCHIATRY [facility] [place] [facility] Oct 13, 2023 08:00 AM AMBULATORY - MEDICINE [place] [facility] [place] [facility] Oct 13, 2023 01:00 PM AMBULATORY - PSYCHIATRY [facility] [place] [facility] Active, Pending, and Scheduled Orders [...] (SST-GOLD) SERUM SP [facility] [place] [facility] Social History: Smoking Status (Most [...] VA-TOBACCO NEVER USED [place] [facility] [place] [facility] Tobacco Use History This section includes a history of the smoking, or tobacco-related health factors, that were collected on or before the date of the Encounter. The data comes from the [place] facility where the Encounter took place. Date/Time Smoking Status/Tobacco Use Comment F acility June 17, 2022 01:00 PM VA-TOBACCO NEVER USED [place] [facility] [place] [facility] Jul 16, 2021 01:00 PM VA-TOBACCO NEVER USED [facility] [place] [facility] July 03, 2020 01:00 PM VA-TOBACCO NEVER USED [place] [facility] [place] [facility] Jul 11, 2019 02:57 PM VA-TOBACCO NEVER USED [place] [facility] [place] [facility] Jan 14, 2019 08:50 AM VA-TOBACCO NEVER USED [place] [facility] [place] [facility] Mar 04, 2018 01:20 PM VA-TOBACCO NEVER USED [facility] [place] [facility] May 27, 2017 11:01 AM LIFETIME NON-TOBACCO USER [facility] [place] [facility] May 20, 2016 10:51 AM LIFETIME NON-TOBACCO USER [facility] [place] [facility] May 03, 2015 01:13 PM LIFETIME NON-TOBACCO USER [place] [facility] [place] [facility] Advance Directives: All historical and [...] ADVANCE DIRECTIVE MIGDALIA MILES NE [facility] Apr 14, 2019 ADVANCE DIRECTIVE RAFAL BULLARD [facility] Radiology Reports: +/- 30 days of [...] Provider Source Jun 05, 2023 08:42 AM [facility]: JANETPRASANTH Mayo [id number] -1945 M Exm Date: JUN 05, 2023@08:42 Req Phys: SUBHA VELAZQUEZ Loc: CWM/NO/PACT EIGHT (Req'g Loc) Img Loc: ULTRASOUND Service: Unknown (Case [id number] COMPLETE) [employer] [facility]BD[facility] [email or web address] ([place] Detailed) CPT:75195 Reason for Study: h/o hep c Clinical History: Report Status: Verified Date Reported: JUN 05, 2023 Date Verified: JUN 05, 2023 Broadcast Engineer E-Sig: Report: [employer] [facility] [email or web address] HISTORY: 77-year-old male with a history of [...] No ascites. READING PHYSICIAN: Han Godinez MD -[id number] 06/05/2023 16:18 EDT [facility] National Teleradiology Program [phone] (For Medical Practitioner Use Only) Attention Patients / Veterans: If you have questions or concerns about these test results, please contact your ordering provider or primary care team. Primary Diagnostic Code: NO ALERT REQUIRED Primary Interpreting Staff: RADIOLOGY,OUTSIDE SERVICE, Staff Physician / RADIOLOGY,OUTSIDE SERVICE [facility] Encounter Notes: All associated encounter notes This section contains the clinical notes associated to the Encounter. Date/Time Encounter Note(s) Provider Source Jun 03, 2023 02:47 PM MENTAL HEALTH TELE PHONE ENCOUNTER NOTE: LOCAL TITLE: TELEPHONE NOTE/MENTAL HEALTH STANDARD TITLE: MENTAL HEALTH TELEPHONE ENCOUNTER NOTE DATE OF NOTE: JUN 03, 2023@14:47 ENTRY DATE: JUN 03, 2023@14:47:59 AUTHOR: NATHAN KIRK EXP COSIGNER: URGENCY: STATUS: COMPLETED INFORMED CONSENT: Previously reviewed rights and limits of confidentiality, mandatory reporting situations, duty to warn and protect, Daniels Warning, (if treatment team finds patient to be an acute danger to themself or others, that. this information could be relayed to a court of law and presented to a potato chip sacking machine operator), and DOD access for active-duty service members. Provided Suicide Prevention Hotline number, and other contact numbers as necessary. VISIT DURATION: 43 Minutes *Coward was not able to get on VVC today, therefore the session took place via telephone. IDENTITY VERIFICATION [X] Patient Name [X] Visual recognition DIAGNOSES: PTSD [employer]ETERANS STATEMENT OF GOALS/CONCERNS: Reduce irritability, avoidance, work on current challenges (including medical issues, particularly, cancer diagnosis), relationship issues, increase. meaningful activities and remain connected with people he is close to. SESSION FOCUS: Session focused on medical updates, family dynamics, and post-[place] experiences. shared that his new C-PAP is working well so far and that he was able to get a full night's sleep without getting up. He shared that this is a big deal for him as he didn't remember the last time this happened, and that he felt rested when he woke up in the morning. Coward also shared that his knee has recovered well since his knee replacement surgery and that he is looking forward to getting the second one done in the near future. Art stated that his daughter is going through a rough period as her 4 year old Labrador Retriever due to Lyme's disease, which severely impacted his kidney. He stated that he felt sad for her as her also in recent years and that losing her dog (who was like family to her), was very hard. Offered condolences to Art and his family. Art also shared that he would like to keep his cabin in [place] within the family and that his son wants to purchase it from him. However, Art stated that may not work out due to his son's financial difficulties and therefore, may have to sell the cabin. He shared that the cabin is a special place for him and that if he could afford to keep it himself, he would. The remainder of the session focused on Art's post-[place] experiences. Art shared that when he witnesses what is happening in the country today, it sometimes reminds him of the unrest he came home to when returning from [place]. He shared details regarding post-[place] experiences and how troublesome it was to encounter so many people with negative attitudes towards members returning home from [place]. Art stated that he sometimes wishes he would have remained in the upon his return, however, expressed that he had great opportunities following his discharge, which led to his successes outside of the . INTERVENTIONS: Psychotherapeutic Interventions: Limit news and triggering television programs, increase meaningful activities, focus on the things he [...] PLAN FOR FOLLOW-UP: Next session planned for: 06/09/23 at 1:00pm /rosio/ NATHAN TORMEY, Ph.D Clinical Psychologist Signed: 06/03/2023 16:13 NATHAN KIRK [facility]
--- OUTSIDE RECORDS SUMMARY | 2024-02-16 09:09 | XMS_ITS | Encounter Summary ---
Author Name [facility] [place] [facility] [place] Organization [place] Address [address] [place] [address] Care Team Providers Care Quilter Fixer Name Role Phone SUBHA VELAZQUEZ Primary Care [...] Relationship to Policy Bryson GREGORY PUGA-WN R [place] SPECIAL CLASS GREGORY DIOP Sep 15, 2011 GREGORY PUGA [id number] PAULA GONZALES PATIENT [facility] MEDICARE SUPPLEMEN [facility] Aug 09, 2017 [id number] [phone] JANTEPAULA ANDREW PATIENT [facility] MEDICARE SUPPLEMEN MARIA ELENA [facility] AGENC Y SUPP [facility] Aug 09, 2017 [id number] PAULA GONZALES PATIENT MEDICARE (WNR) MEDICARE (M) PART A Nov 10, 2019 PART A [id number] PAULA GONZALES PATIENT MEDICARE (WNR) MEDICARE (M) PART B Apr 09, 2010 PART B [id number] PAULA GONZALES PATIENT MEDICARE (WNR) MEDICARE (M) PART B Apr 09, 2010 PART B [id number] [phone] [id number] PAULA GONZALES PATIENT MEDICARE (WNR) MEDICARE (M) PART B Apr 09, 2010 PART B [id number] PAULA GONZALES PATIENT MEDICARE (WNR) MEDICARE (M) PART A Nov 09, 2009 PART A [id number] PAULA GONZALES PATIENT MEDICARE (WNR) MEDICARE (M) PART A Nov 09, 2009 PART A [id number] [phone] PAULA GONZALES PATIENT Selected Encounter This section includes the information on record at [place] for the Encounter. Date/Time Encounter Type Encounter Description Reason Pro vider Source IHE Encounter Template Text not used by [place] Advance Directives: All historical and current Section Date Range: From patient's date of to the date document was created. This section includes ALL of a patient's completed or amended [place] Advance and Rescinded Directives. The entries below indicate that a directive exists for the patient, but an actual copy is not included with this document. The data comes from all [place] facilities. Date Advance Directives Provider Source Nov 08, 2019 ADVANCE DIRECTIVE [facility]IA MILES [facility] Apr 14, 2019 ADVANCE DIRECTIVE RAFAL BULLARD [place] [facility]
--- OUTSIDE RECORDS SUMMARY | 2024-02-16 09:09 | XMS_ITS ---
Author Name [facility] [place] Address [address] [place] [address] Care Team Providers Care Brown Stock Washer Name Role Phone SUBHA REY Primary Care Provider Unavailabl e Insurance Providers: [...] Relationship to Policy Bryson GREGORY PUGA-WN R [place] SPECIAL [place] GREGORY DIOP Sep 15, 2011 GREGORY PUGA [id number] PAULA FENG [facility]IENT [facility] [place] MEDICARE SU[employer]MEN [employer] [facility] Aug 09, 2017 [id number] PAULA FENG [facility] [place] MEDICARE [employer]MEN [facility] [employer] [facility] [facility] SUPP [address] Aug 09, 2017 [id number] PAULA FENG PATIENT MEDICARE (WNR) MEDICARE (M) PART A Nov 10, 2019 PART A [id number] PAULA FENG PATIENT MEDICARE (WNR) MEDICARE (M) PART B Apr 09, 2010 PART B [id number] PAULA FENG PATIENT MEDICARE (WNR) MEDICARE (M) PART B Apr 09, 2010 PART B [id number] PAULA FENG PATIENT MEDICARE (WNR) MEDICARE (M) PART B Apr 09, 2010 PART B [id number] [phone] PAULA FENG PATIENT MEDICARE (WNR) MEDICARE (M) PART A Nov 09, 2009 PART A [id number] PAULA FENG PATIENT MEDICARE (WNR) MEDICARE (M) PART A Nov 09, 2009 PART A [id number] [phone] PAULA FENG PATIENT Selected Encounter This section includes the information on record at [place] for the Encounter. Date/Time Encounter Type Encounter Description Reason Provider Source June 16, 2023 07:42 AM Outpatient Encounter PRIMARY CARE/MEDICINE LOGAN GONZALEZ Encounter Template Text not used by [place] Plan of Treatment: Future Appointments (+ 6 months) and Future Tests (+/- 45 days) The Plan of Treatment section includes future care activities for the patient [facility] [place] [facility] This section includes future appointments and future orders which are active, pending or scheduled. Future Appointments This section includes appointments that were scheduled to occur 6 months from the date of the Encounter, up to a maximum of 20 appointments. The data comes from all [place] treatment facilities. Appointment Date/Time Appointment Type Appointme nt Facility Name June 30, 2023 01:00 PM AMBULATORY [place]ATRY [place] [facility] [place] [facility] Jul 28, 2023 01:00 PM AMBULATORY - [place]AT[place] [facility] [place] [facility] Aug 04, 2023 01:00 PM AMBULATORY - [place]ATRY [facility] [place] [facility] Aug 11, 2023 09:00 AM AMBULATORY - MEDICINE [facility] [place] [facility] Aug 11, 2023 01:00 PM AMBULATORY [place]ATRY [facility] [place] [facility] Aug 17, 2023 10:00 AM AMBULATORY - [facility]H[place] MEDICIN [facility] [place] [facility] Sep 01, 2023 01:00 PM AMBULATORY - [place]ATRY [facility] [place] [facility] Sep 08, 2023 01:00 PM AMBULATORY - [facility]IATRY [facility] [place] [facility] Sep 15, 2023 01:00 PM AMBULATORY - [facility]IATRY [facility] [place] [facility] Sep 22, 2023 01:00 PM AM[facility]UL[facility]AT[facility] [place] [facility] Sep 24, 2023 09:00 AM AM[facility]ULATORY [facility] MEDICINE [facility] [place] [facility] Sep 24, 2023 10:30 AM AMBULATORY - MEDICINE [place] [facility] [place] [facility] Sep 24, 2023 11:30 AM AMBULATORY - REHAB MEDICIN E [facility] [place] [facility] Sep 25, 2023 01:00 PM AM[place]ULATORY [place] MEDICINE [place] [facility] [place] [facility] Sep 29, 2023 01:00 PM AMBULATORY - [place]IATRY [facility] [place] [facility] Oct 13, 2023 08:00 AM AMBULATORY - MEDICINE [place] [facility] [place] [facility] Oct 13, 2023 01:00 PM AMBULATORY - [place]IATRY [facility] [place] [facility] Oct 14, 2023 08:00 AM AMBULATORY [place] MEDICINE [place] [facility] [place] [facility] Oct 20, 2023 01:00 PM AMBULATORY - PS[place]IATRY [facility] [place] [facility] Oct 27, 2023 01:00 PM [facility] [place] [facility] Active, Pending, and Scheduled Orders This section includes a listing of several types of active, pending, and scheduled orders, including clinic medications orders, diagnostic test orders, procedure orders and consult orders; where the start date of the order is 45 days before the date of the Encounter or 45 days after the date of theEncounter. The data comes from all [place] treatment facilities. Test Date/Time Test Type Test Details Facility Name May 21, 2023 12:00 AM Laboratory - Chemi stry Order HCV RNA PCR PANEL(WHV) BLOOD (SST-GOLD) SERUM SP [place] [facility] [place] [facility] Social History: Smoking Status (Most current) and Tobacco Use (All prior to encounter date) This section includes the most current, and the historical, smoking and tobacco- related health factors from the [place] facility where the Encounter took place. Current Smoking Status This section includes the most current smoking, or tobacco-related health factor, from the [place] facility where the Encounter took place. Date/Time Current Smoking Status Comment Louisa ity May 19, 2023 01:00 PM VA-TOBACCO NEVER USED [place] [facility] [place] [facility] Tobacco Use History This section includes a history of the smoking, or tobacco-related health factors, that were collected on or before the date of the Encounter. The data comes from the [place] facility where the Encounter took place. Date/Time Smoking Status/Tobacco Use Comment F acility June 17, 2022 01:00 PM VA-TOBACCO NEVER USED [facility] [place] [facility] Jul 16, 2021 01:00 PM VA-TOBACCO NEVER USED [facility] [place] [facility] July 03, 2020 01:00 PM VA-TOBACCO NEVER USED [facility] [place] [facility] Jul 11, 2019 02:57 PM VA-TOBACCO NEVER USED [facility] [place] [facility] Jan 14, 2019 08:50 AM VA-TOBACCO NEVER USED [facility] [place] [facility] Mar 04, 2018 01:20 PM VA-TOBACCO NEVER USED [facility] [place] [facility] May 27, 2017 11:01 AM LIFETIME NON-TOBACCO USER [facility] [place] [facility] May 20, 2016 10:51 AM LIFETIME NON-TOBACCO USER [facility] [place] [facility] May 03, 2015 01:13 PM LIFETIME NON-TOBACCO USER [place] [facility] [place] [facility] Advance Directives: All historical and current Section Date Range: From patient's date of to the date document was created. This section includes ALL of a patient's completed or amended [place] Advance and Rescinded Directives. The entries below indicate that a directive exists for the patient, but an actual copy is not included with this document. The data comes from all [place] facilities. Date Advance Directives Provider Source Nov 08, 2019 ADVANCE DIRECTIVE MIGDALIA MILES [place] [facility] [place] [facility] Apr 14, 2019 ADVANCE DIRECTIVE RAFAL BULLARD [place] [facility] [place] [facility] Radiology Reports: +/- 30 days of [...] the Encounter. The data comes from all [place] treatment facilities. Date/Time Radiology Report Provider Source Jun 05, 2023 08:42 AM ECHOGRAM ABDOMEN LTD: PRASANTH FENG [id number] -[id number] M Ex Date: JUN 05, 2023@08:42 Req Phys: SUBHA REY Loc: CWM/NO/PACT EIGHT (Req'g Loc) Img Loc: ULTRASOUND Service: Unknown (Case [id number] COMPLETE) ECHOGRAM ABDOMEN LTD (US Detailed) CPT:97015 Reason for Study: h/o hep c Clinical History: Report Status: Verified Date Reported: JUN 05, 2023 Date Verified: JUN 05, 2023 Pairer Odds E-Sig: Report: ECHOGRAM ABDOMEN [employer] HISTORY: 77-year-old male with a history of hepatitis C. COMPARISON: None. TECHNIQUE: Sonographic imaging of the right and left upper quadrants was performed at the local [facility]. 29 still images were received by the [place] National Teleradiology Program (NTP) for interpretation. FINDINGS: [...] No ascites. READING PHYSICIAN: Han Godinez MD -[id number] 06/05/2023 16:18 EDT [facility] National Teleradiology Program [phone] (For Medical Practitioner Use Only) Attention Patients / Veterans: If you have questions or concerns about these test results, please contact your ordering provider or primary care team. Primary Diagnostic Code: NO ALERT REQUIRED Primary Interpreting Staff: RADIOLOGY,OUTSIDE SERVICE, Staff Physician / RADIOLOGY,OUTSIDE SERVICE [place] [facility] Encounter Notes: All associated encounter notes This section contains the clinical notes associated to the Encounter. Date/Time Encounter Note(s) Provider Source June 17, 2023 12:54 PM ADDENDUM: LOCAL TITLE: Addendum STANDARD TITLE: ADDENDUM DATE OF NOTE: JUNE 17, 2023@12:54:43 ENTRY DATE: JUNE 17, 2023@12:54:44 AUTHOR: SUBHA REY EXP COSIGNER: URGENCY: STATUS: COMPLETED sent letter with u/s results. can decide if he needs new lung testing at his next apt. /rosio/ SUBHA REY D.O. PHYSICIAN Signed: 06/17/2023 12:55 Receipt Acknowledged By: 06/17/2023 13:38 /es/ LOGAN GONZALEZ RN REGISTERED NURSE ====== --- Original Document --- 06/16/23 PRIMARY CARE SECURE MESSAGING: ------Original Message ------- Sent: 06/14/2023 01:58 PM ET From: PRASANTH FENG To: Stephanie REY _ PRIMARY CARE_[facility] Subject: Appointment:results Liver Ultra Sound Test / Allergy Test Dear Dr. Rey, In regards to my resent Liver Ultra Sound test I was wondering how it came out. The lady who gave the test was very nice, and the test went very well. When we started I was lying on my back, then rolled to the left so the right side could be viewed, then to the right so the left side could be viewed. Back and Left were fine, when probed on the right it was sore much like it was 60 years ago when I had Hepatitis ,,just curious of the test results. Finally would it possible to re-test for my COPD and Asthma., this spring has been very hard, like to know if there is possibly a stronger medication available? Thank you for the help, have a nice day, Prasanth Feng [facility] ------Original Message ------- Sent: 06/16/2023 08:42 AM ET From: LOGAN GONZALEZ To: PRASANTH FENG Subject: Appointment:results Liver Ultra Sound Test / Allergy Test Good Morning Mr. Feng I will forward your request for these results to your Primary Care Physician. I also understand you are having some worsening COPD symptoms. Are you using your inhalers? Have you needed to use the rescue inhaler more frequently? Are you having shortness of breath? Respectfully, Logan Gonzalez RN /fay GONZALEZ RN REGISTERED NURSE Signed: 06/16/2023 08:42 06/16/2023 ADDENDUM STATUS: COMPLETED Alert to PCP as is requesting recent US result. /fay GONZALEZ RN REGISTERED NURSE Signed: 06/16/2023 14:20 Receipt Acknowledged By: 06/17/2023 13:15 /rosio/ SUBHA REY D.O. PHYSICIAN SUBHA REY [place] [facility] [place] [facility] June 16, 2023 02:19 PM ADDENDUM: LOCAL TITLE: Addendum STANDARD TITLE: ADDENDUM DATE OF NOTE: JUNE 16, 2023@14:19:41 ENTRY DATE: JUNE 16, 2023@14:19:42 AUTHOR: LOGAN GONZALEZ EXP COSIGNER: URGENCY: STATUS: COMPLETED Alert to PCP as is requesting recent US result. /fay GONZALEZ RN REGISTERED NURSE Signed: 06/16/2023 14:20 Receipt Acknowledged By: 06/17/2023 13:15 /rosio/ SUBHA REY D.O. PHYSICIAN ====== --- Original Document --- 06/16/23 PRIMARY CARE SECURE MESSAGING: ------Original Message ------- Sent: 06/14/2023 01:58 PM ET From: PRASANTH FENG To: Stephanie REY _ PRIMARY CARE_[facility] Subject: Appointment:results Liver Ultra Sound Test / Allergy Test Dear Dr. Rey, In regards to my resent Liver Ultra Sound test I was wondering how it came out. The lady who gave the test was very nice, and the test went very well. When we started I was lying on my back, then rolled to the left so the right side could be viewed, then to the right so the left side could be viewed. Back and Left were fine, when probed on the right it was sore much like it was 60 years ago when I had Hepatitis ,,just curious of the test results. Finally would it possible to re-test for my COPD and Asthma., this spring has been very hard, like to know if there is possibly a stronger medication available? Thank you for the help, have a nice day, Prasanth Feng [facility] ------Original Message ------- Sent: 06/16/2023 08:42 AM ET From: LOGAN GONZALEZ To: PRASANTH FENG Subject: Appointment:results Liver Ultra Sound Test / Allergy Test Good Morning Mr. Feng I will forward your request for these results to your Primary Care Physician. I also understand you are having some worsening COPD symptoms. Are you using your inhalers? Have you needed to use the rescue inhaler more frequently? Are you having shortness of breath? Respectfully, Logan Gonzalez RN /rosio/ LOGAN GONZALEZ RN REGISTERED NURSE Signed: 06/16/2023 08:42 06/17/2023 ADDENDUM STATUS: COMPLETED sent letter with u/s results. can decide if he needs new lung testing at his next apt. /rosio/ SUBHA REY D.O. PHYSICIAN Signed: 06/17/2023 12:55 Receipt Acknowledged By: * AWAITING SIGNATURE * LOGAN GONZALEZ [facility] [place] [facility] June 16, 2023 01:20 PM PRIMARY CARE JASSI Elizondo MESSAGING: LOCAL TITLE: PRIMARY CARE SECURE MESSAGING STANDARD TITLE: PRIMARY CARE SECURE MESSAGING DATE OF NOTE: JUNE 16, 2023@13:20 ENTRY DATE: JUNE 16, 2023@14:20:25 AUTHOR: LOGAN GONZALEZ EXP COSIGNER: URGENCY: STATUS: COMPLETED ------Original Message ------- Sent: 06/16/2023 10:30 AM ET From: PRASANTH EFNG To: Stephanie REY _ PRIMARY CARE_[facility] Subject: Appointment:results Liver Ultra Sound Test / Allergy Test Dear Ms. Gonzalez Yes I am using my rescue inhaler and I ran it out yesterday, going to the [employer] this afternoon to get an OTC Prime a Teen mist, that should get me home on Thursday, as I am in [place] this week. Sneezing more then usual, that seems to get the chest started to tighten up. Best success is the inhaler and then a hot cup of lemon tea, no milk that settles it down! Thank you for your interest and help. Prasanth Feng [facility] ------Original Message ------- Sent: 06/16/2023 02:20 PM ET From: LOGAN GONZALEZ To: PRASANTH FENG Subject: Appointment:results Liver Ultra Sound Test / Allergy Test Good Afternoon Mr. Feng, Would you like me to schedule you with Dr. Rey when you are home from [place]? If you feel you are worsening perhaps she should evaluate you to determine if we need to make any medication changes. Respectfully, Logan Gonzalez RN /rosio/ LOGAN GONZALEZ RN REGISTERED NURSE Signed: 06/16/2023 14:20 LOGAN GONZALEZ [place] [facility] [place] [facility] June 16, 2023 07:42 AM PRIMARY CARE JASSI Elizondo MESSAGING: LOCAL TITLE: PRIMARY CARE SECURE MESSAGING STANDARD TITLE: PRIMARY CARE SECURE MESSAGING DATE OF NOTE: JUNE 16, 2023@07:42 ENTRY DATE: JUNE 16, 2023@08:42:17 AUTHOR: LOGAN GONZALEZ EXP COSIGNER: URGENCY: STATUS: COMPLETED PRIMARY CARE SECURE MESSAGING Has ADDENDA ------Original Message ------- Sent: 06/14/2023 01:58 PM ET From: PRASANTH FENG To: Stephanie REY _ PRIMARY CARE_[facility] Subject: Appointment:results Liver Ultra Sound Test / Allergy Test Dear Dr. Rey, In regards to my resent Liver Ultra Sound test I was wondering how it came out. The lady who gave the test was very nice, and the test went very well. When we started I was lying on my back, then rolled to the left so the right side could be viewed, then to the right so the left side could be viewed. Back and Left were fine, when probed on the right it was sore much like it was 60 years ago when I had Hepatitis ,,just curious of the test results. Finally would it possible to re-test for my COPD and Asthma., this spring has been very hard, like to know if there is possibly a stronger medication available? Thank you for the help, have a nice day, Prasanth Feng [facility] ------Original Message ------- Sent: 06/16/2023 08:42 AM ET From: LOGAN GONZALEZ To: JANETPRASANTH Gael Subject: Appointment:results Liver Ultra Sound Test / Allergy Test Good Morning Mr. Feng I will forward your request for these results to your Primary Care Physician. I also understand you are having some worsening COPD symptoms. Are you using your inhalers? Have you needed to use the rescue inhaler more frequently? Are you having shortness of breath? Respectfully, Logan Gonzalez RN /rosio/ LOGAN GONZALEZ RN REGISTERED NURSE Signed: 06/16/2023 08:42 06/16/2023 ADDENDUM STATUS: COMPLETED Alert to PCP as is requesting recent US result. /rosio/ LOGAN E GONZALEZ, RN REGISTERED NURSE Signed: 06/16/2023 14:20 Receipt Acknowledged By: * AWAITING SIGNATURE * SUBHA REY 06/17/2023 ADDENDUM STATUS: COMPLETED sent letter with u/s results. can decide if he needs new lung testing at his next apt. /rosio/ SUBHA REY D.O. PHYSICIAN Signed: 06/17/2023 12:55 Receipt Acknowledged By: * AWAITING SIGNATURE * LOGAN GONZALEZ [facility]
--- OUTSIDE RECORDS SUMMARY | 2024-02-16 09:09 | XMS_ITS | Encounter Summary ---
Author Name [facility] [place] Address [address] [place] [address] Care Team Providers Care Special Events Coordinator Name Role Phone SUBHA VELAZQUEZ Primary Care [...] Relationship to Policy Bryson GREGORY PUGA-WN R [place] SPECIAL CLASS GREGORY DIOP Sep 15, 2011 GREGORY PUGA [id number] PAULA GONZALES PATIENT [facility] MEDICARE SU[employer]MEN [employer] Aug 09, 2017 [id number] [phone] JANETPAULA ANDREW PATIENT [facility] MEDICARE SUPPLEMEN [facility] Aug 09, 2017 [id number] PAULA GONZALES PATIENT MEDICARE (WNR) MEDICARE (M) PART A Nov 10, 2019 PART A [id number] PAULA GONZALES PATIENT MEDICARE (WNR) MEDICARE (M) PART B Apr 09, 2010 PART B [id number] PAULA GONZALES PATIENT MEDICARE (WNR) MEDICARE (M) PART B Apr 09, 2010 PART B [id number] PAULA GONZALES PATIENT MEDICARE (WNR) MEDICARE (M) PART B Apr 09, 2010 PART B [id number] PAULA GONAZLES PATIENT MEDICARE (WNR) MEDICARE (M) PART A Nov 09, 2009 PART A [id number] PAULA GONZALES PATIENT MEDICARE (WNR) MEDICARE (M) PART A Nov 09, 2009 PART A [id number] PAULA GONZALES PATIENT Selected Encounter This section includes the information on record at [place] for the Encounter. Date/Time Encounter Type Encounter Description Reason Pro vider Source IHE Encounter Template Text not used by [place] Advance Directives: All historical and current Section Date Range: From patient's date of to the date document was created. This section includes ALL of a patient's completed or amended [place] Advance and Rescinded Directives. The entries below indicate that a directive exists for the patient, but an actual copy is not included with this document. The data comes from all [place] facilities. Date Advance Directives Provider Source Nov 08, 2019 ADVANCE DIRECTIVE [facility]IA MILES [facility] Apr 14, 2019 ADVANCE DIRECTIVE RAFAL BULLARD [place] [facility]
--- OUTSIDE RECORDS SUMMARY | 2024-02-16 09:10 | XMS_ITS ---
Author Name [facility] [place] Organization [facility] [place] Address [address] [place] [address] Care Team Providers Care Heavy Truck Technician Name Role Phone SUBHA VELAZQUEZ Primary [...] Relationship to Policy Bryson GREGORY PUGA-WN R [place] SPECIAL CLASS GREGORY DIPO Sep 15, 2011 GREGORY PUGA [id number] [phone] PAULA GONZALES PATIENT [employer] [facility] Aug 09, 2017 [id number] PAULA GONZALES PATIENT [employer] [facility] SUPP PL Aug 09, 2017 [id number] [phone] PAULA GONZALES PATIENT MEDICARE (WNR) MEDICARE (M) PART A Nov 10, 2019 PART A [id number] PAULA GONZALES PATIENT MEDICARE (WNR) MEDICARE (M) PART B Apr 09, 2010 PART B [id number] PAULA GONZALES PATIENT MEDICARE (WNR) MEDICARE (M) PART B Apr 09, 2010 PART B [id number] PAULA GONZALES PATIENT MEDICARE (WNR) MEDICARE (M) PART B Apr 09, 2010 PART B [id number] PAULA GONZALES PATIENT MEDICARE (WNR) MEDICARE (M) PART A Nov 09, 2009 PART A [id number] PAULA GONZALES PATIENT MEDICARE (WNR) MEDICARE (M) PART A Nov 09, 2009 PART A [id number] PAULA GONZALES PATIENT Selected Encounter This section includes the information on record at [place] for the Encounter. Date/Time Encounter Type Encounter Description Reason Pro vider Source Apr 10, 2023 12:00 PM Outpatient Encounter COMMUNITY CARE CONSULT IHE Encounter Template Text not used by [place] Plan of Treatment: Future Appointments (+ 6 months) and Future Tests (+/- 45 days) The Plan of Treatment section includes future care [facility] the [facility] [place] [facility] This section includes future appointments and future orders which are active, pending or scheduled. Future Appointments This section includes appointments that were scheduled to occur 6 months from the date of the Encounter, up to a maximum of 20 appointments. The data comes from all [place] treatment facilities. Appointment Date/Time Appointment Type Appointme nt Facility Name Apr 17, 2023 11:00 AM AMBULATORY [facility] [place] [facility] Apr 21, 2023 09:30 AM AMBULATORY - MEDICINE [facility] [place] [facility] Apr 22, 2023 08:30 AM AMBULATORY - NONE [facility] [place] [facility] Apr 23, 2023 08:00 AM AMBULATORY - MEDICINE [facility] [place] [facility] May 06, 2023 12:30 PM AMBULATORY - NONE [facility] [place] [facility] May 07, 2023 03:30 PM AMBULATORY - MEDICINE [facility] [place] [facility] May 12, 2023 01:00 PM AMBULATORY - PSYCHIATRY [facility] [place] [facility] May 19, 2023 01:00 PM AMBULATORY - PSYCHIATRY [facility] [place] [facility] May 21, 2023 02:00 PM AMBULATORY - MEDICINE [facility] [place] [facility] May 26, 2023 01:00 PM AMBULATORY - PSYCHIATRY [facility] [place] [facility] Jun 02, 2023 01:00 PM AMBULATORY - PSYCHIATRY [facility] [place] [facility] Jun 05, 2023 09:00 AM AMBULATORY - NONE [facility] [place] [facility] Jun 09, 2023 09:30 AM AMBULATORY - MEDICINE [facility] [place] [facility] Jun 09, 2023 09:31 AM [place]IC[place] [facility] June 30, 2023 01:00 PM AMBULATORY - PSYCHIATRY [facility] [place] [facility] Jul 28, 2023 01:00 PM AMBULATORY - PSYCHIATRY [facility] [place] [facility] Aug 04, 2023 01:00 PM AMBULATORY - PSYCHIATRY [facility] [place] [facility] Aug 11, 2023 09:00 AM AMBULATORY - MEDICINE [facility] [place] [facility] Aug 11, 2023 01:00 PM AMBULATORY - PSYCHIATRY [facility] [place] [facility] Aug 17, 2023 10:00 AM AMBULATORY - REHAB MEDICIN E [facility] [place] [facility] Active, Pending, and Scheduled Orders This section includes a listing of several types of active, pending, and scheduled orders, including clinic medications orders, diagnostic test orders, procedure orders and consult orders; where the start date of the order is 45 days before the date of the Encounter or 45 days after the date of theEncounter. The data comes from all [place] treatment facilities. Test Date/Time Test Type Test Details Facility Name May 21, 2023 12:00 AM Laboratory - Chemi stry Order HCV RNA PCR PANEL(WHV) BLOOD (SST-GOLD) SERUM SP [facility] [place] [facility] Social History: Smoking Status (Most current) and Tobacco Use (All prior to encounter date) This section includes the most current, and the historical, smoking and tobacco- related health factors from the [facility] facility where the Encounter took place. Current Smoking Status This section includes the most current smoking, or tobacco-related health factor, from the [place] facility where the Encounter took place. Date/Time Current Smoking Status Comment Facil ity June 17, 2022 01:00 PM VA-TOBACCO NEVER USED [facility] [place] [facility] Tobacco Use History This section includes a history of the smoking, or tobacco-related health factors, that were collected on or before the date of the Encounter. The data comes from the [place] facility where the Encounter took place. Date/Time Smoking Status/Tobacco Use Comment F acility Jul 16, 2021 01:00 PM VA-TOBACCO NEVER USED [facility] [place] [facility] July 03, 2020 01:00 PM VA-TOBACCO NEVER USED [facility] [place] [facility] Jul 11, 2019 02:57 PM VA-TOBACCO NEVER USED [facility] [place] [facility] Jan 14, 2019 08:50 AM VA-TOBACCO NEVER USED [facility] [place] [facility] Mar 04, 2018 01:20 PM VA-TOBACCO NEVER USED [facility] [place] [facility] May 27, 2017 11:01 AM LIFETIME NON-TOBACCO USER [facility] [place] [facility] May 20, 2016 10:51 AM LIFETIME NON-TOBACCO USER [facility] [place] [facility] May 03, 2015 01:13 PM LIFETIME NON-TOBACCO USER [facility] [place] [facility] Advance Directives: All historical and current Section Date Range: From patient's date of to the date document was created. This section includes ALL of a patient's completed or amended [place] Advance and Rescinded Directives. The entries below indicate that a directive exists for the patient, but an actual copy is not included with this document. The data comes from all [place] facilities. Date Advance Directives Provider Source Nov 08, 2019 ADVANCE DIRECTIVE MIGDALIA MILES [facility] [place] [facility] Apr 14, 2019 ADVANCE DIRECTIVE RAFAL BULLARD [facility] [place] [facility] Encounter Notes: All associated encounter notes This section contains the clinical notes associated to the Encounter. Date/Time Encounter Note(s) Provider Source Apr 10, 2023 12:00 PM NONVA CONSULT: LOCAL TITLE: COMMUNITY CARE-CONSULT RESULT NOTE STANDARD TITLE: NONVA CONSULT DATE OF NOTE: APR 10, 2023@12:00 ENTRY DATE: AUG 25, 2023@12:07:54 AUTHOR: EMIGDIO,DANIEL L EXP COSIGNER: URGENCY: STATUS: COMPLETED VistA Imaging - Scanned Document SCANNED DOCUMENT SIGNATURE NOT REQUIRED Electronically Filed: 08/25/2023 by: DANIEL BEAL THREAT ANALYST DANIEL BEAL [facility]
--- OUTSIDE RECORDS SUMMARY | 2024-02-16 09:10 | XMS_ITS | Encounter Summary ---
Author Name [facility] [place] Organization [facility] [place] [place] [facility] [place] Address [address] [place] [address] Care Team Providers Care Dining Room Busser Name Role Phone SUBHA VELAZQUEZ Primary Care [...] GREGORY DIOP Sep 15, 2011 GREGORY PUGA [id number] [phone] PAULA GONZALES PATIENT [employer] [facility] Aug 09, 2017 [id number] [phone] PAULA GONZALES PATIENT [employer] [facility] [employer] [facility] [facility] SUPP PL Aug 09, 2017 [id number] PAULA GONZALES PATIENT MEDICARE (WNR) MEDICARE (M) PART A Nov 10, 2019 PART A [id number] PAULA GONZALES PATIENT MEDICARE (WNR) MEDICARE (M) PART B Apr 09, 2010 PART B [id number] PAULA GONZALES PATIENT MEDICARE (WNR) MEDICARE (M) PART B Apr 09, 2010 PART B [id number] PAULA GONZALES PATIENT MEDICARE (WNR) MEDICARE (M) PART B Apr 09, 2010 PART B [id number] PAULA GONZALES PATIENT MEDICARE (WNR) MEDICARE (M) PART A Nov 09, 2009 PART A [id number] PAULA GONZALES PATIENT MEDICARE (WNR) MEDICARE (M) PART A Nov 09, 2009 PART A [id number] PAULA GONZALES PATIENT Selected Encounter This section includes the information on record at [place] for the Encounter. Date/Time Encounter Type Encounter Description Reason Provider Source July 07, 2023 09:35 AM Outpatient Encounter PROSTHETICS/ORTHOTIC S SUBHA VELAZQUEZ Encounter Template Text not used by [place] Plan of Treatment: Future Appointments (+ 6 months) and Future Tests (+/- 45 days) The Plan of Treatment section includes future care activities for the [facility] [place] [facility] This section includes future appointments and [...] 28, 2023 01:00 PM AMBULATORY - PSYCHIATRY [place] [facility] [place] [facility] Aug 04, 2023 01:00 PM AMBULATORY - PSYCHIATRY [place] [facility] [place] [facility] Aug 11, 2023 09:00 AM AMBULATORY - MEDICINE [place] [facility] [place] [facility] Aug 11, 2023 01:00 PM AMBULATORY - PSYCHIATRY [place] [facility] [place] [facility] Aug 17, 2023 10:00 AM AMBULATORY - REHAB MEDICIN E [place] [facility] [place] [facility] Sep 01, 2023 01:00 PM AMBULATORY - PSYCHIATRY [place] [facility] [place] [facility] Sep 08, 2023 01:00 PM AMBULATORY - PSYCHIATRY [place] [facility] [place] [facility] Sep 15, 2023 01:00 PM AMBULATORY - PSYCHIATRY [facility] [place] [facility] Sep 22, 2023 01:00 PM AMBULATORY - PSYCHIATRY [facility] [place] [facility] Sep 24, 2023 09:00 AM AMBULATORY - MEDICINE [facility] [place] [facility] Sep 24, 2023 10:30 AM AMBULATORY - MEDICINE [facility] [place] [facility] Sep 24, 2023 11:30 AM AMBULATORY - REHAB MEDICIN E [facility] [place] [facility] Sep 25, 2023 01:00 PM AMBULATORY - MEDICINE [facility] [place] [facility] Sep 29, 2023 01:00 PM AMBULATORY - PSYCHIATRY [facility] [place] [facility] Oct 13, 2023 08:00 AM AMBULATORY - MEDICINE [facility] [place] [facility] Oct 13, 2023 01:00 PM AMBULATORY - PSYCHIATRY [facility] [place] [facility] Oct 14, 2023 08:00 AM AMBULATORY - MEDICINE [place] [facility] [place] [facility] Oct 20, 2023 01:00 PM AMBULATORY - PSYCHIATRY [facility] [place] [facility] Oct 27, 2023 01:00 PM AMBULATORY - PSYCHIATRY [facility] [place] [facility] Nov 03, 2023 01:00 PM AMBULATORY - PSYCHIATRY [place] [facility] [place] [facility] Social History: Smoking Status (Most [...] 19, 2023 01:00 PM VA-TOBACCO NEVER USED [facility] [place] [facility] Tobacco Use History This section includes a history of the smoking, or tobacco-related health factors, that were collected on or before the date of the Encounter. The data comes from the [place] facility where the Encounter took place. Date/Time Smoking Status/Tobacco Use Comment F acility June 17, 2022 01:00 PM VA-TOBACCO NEVER USED [place] [facility] [place] [facility] Jul 16, 2021 01:00 PM VA-TOBACCO NEVER USED [facility] [place] [facility] July 03, 2020 01:00 PM VA-TOBACCO NEVER USED [facility] [place] [facility] Jul 11, 2019 02:57 PM VA-TOBACCO NEVER USED [facility] [place] [facility] Jan 14, 2019 08:50 AM VA-TOBACCO NEVER USED [facility] [place] [facility] Mar 04, 2018 01:20 PM VA-TOBACCO NEVER USED [facility] [place] [facility] May 27, 2017 11:01 AM LIFETIME NON-TOBACCO USER [facility] [place] [facility] May 20, 2016 10:51 AM LIFETIME NON-TOBACCO USER [facility] [place] [facility] May 03, 2015 01:13 PM LIFETIME NON-TOBACCO USER [facility] [place] [facility] Advance Directives: All historical and [...] DIRECTIVE MIGDALIA MILES [place] [facility] [place] [facility] Apr 14, 2019 ADVANCE DIRECTIVE RAFAL BULLARD [place] [facility] [place] [facility]
--- OUTSIDE RECORDS SUMMARY | 2024-02-16 09:10 | XMS_ITS | Encounter Summary ---
Author Name [facility] [place] Address [address] [place] [address] Care Team Providers Care Director Customer Name Role Phone SUBHA VELAZQUEZ Primary Care [...] Relationship to Policy Bryson GREGORY PUGA-WN R IN SPECIAL CLASS GREGORY DIOP Sep 15, 2011 GREGORY PUGA [id number] [facility] MEDIC[facility] Aug 09, 2017 [id number] [facility] MEDIC[facility] SUPPLEMEN [facility] SUPP [facility] Aug 09, 2017 [id number] [phone] PAULA FENG PATIENT MEDICARE (WNR) MEDICARE (M) PART A Nov 10, 2019 PART A [id number] PAULA FENG PATIENT MEDICARE (WNR) MEDICARE (M) PART B Apr 09, 2010 PART B [id number] PAULA FENG PATIENT MEDICARE (WNR) MEDICARE (M) PART B Apr 09, 2010 PART B [id number] PAULA FENG PATIENT MEDICARE (WNR) MEDICARE (M) PART B Apr 09, 2010 PART B [id number] PAULA FENG PATIENT MEDICARE (WNR) MEDICARE (M) PART A Nov 09, 2009 PART A [id number] PAULA FENG PATIENT MEDICARE (WNR) MEDICARE (M) PART A Nov 09, 2009 PART A [id number] PAULA FENG PATIENT Selected Encounter This section includes the information on record at [place] for the Encounter. Date/Time Encounter Type Encounter Description Reason Provider Source Sep 08, 2023 01:00 PM PSYTX W PT 45 MINUTES [facility] [place] ICD-10-CM F43.10 Post-traumatic stress disorder, unspecified NATHAN KIRK Mikhail Encounter Template Text not used by [place] Assessments - Encounter Diagnoses This section includes the primary and secondary diagnoses documented for the Encounter. Date/Time Primary/Secondary Diagnosis Diagnosis Name Provider Source Sep 09, 2023 10:13 PM PRIMARY Post-traumatic stress disorder, unspecified [facility] Plan of Treatment: Future Appointments (+ 6 months) and Future Tests (+/- 45 days) The Plan of Treatment section includes future care activities for the patient from all [place] treatmentfacilities. This section includes future appointments and future orders which are active, pending or scheduled. Future Appointments This section includes appointments that were scheduled to occur 6 months from the date of the Encounter, up to a maximum of 20 appointments. The data comes from all [place] treatment facilities. Appointment Date/Time Appointment Type Appointme nt Facility Name Sep 15, 2023 01:00 PM [facility] [place] [facility] Sep 22, 2023 01:00 PM [facility] [place] [facility] Sep 24, 2023 09:00 AM AMBULATORY - MEDICINE [facility] [place] [facility] Sep 24, 2023 10:30 AM [facility] [place] [facility] Sep 24, 2023 11:30 AM [facility] [place] [facility] Sep 25, 2023 01:00 PM [facility] [place] [facility] Sep 29, 2023 01:00 PM AM[facility]UL[facility] [place] [facility] Oct 13, 2023 08:00 AM [facility] [place] [facility] Oct 13, 2023 01:00 PM AM[facility] [place] [facility] Oct 14, 2023 08:00 AM [facility] [place] [facility] Oct 20, 2023 01:00 PM AMB[facility] [place] [facility] Oct 27, 2023 01:00 PM [facility] [place] [facility] Nov 03, 2023 01:00 PM AMBULATORY - PS[facility]IATRY [facility] [place] [facility] Nov 05, 2023 09:00 AM AMBULATORY - REHAB MEDICIN E [facility] [place] [facility] Nov 05, 2023 12:00 PM AMBULATORY [facility] MEDICINE [facility] [place] [facility] Nov 10, 2023 01:00 PM AMBULATORY - PS[facility]CHIATRY [facility] [place] [facility] Nov 17, 2023 01:00 PM AMBULATORY - PS[facility]CHIATRY [facility] [place] [facility] Dec 01, 2023 01:00 PM AMBULATORY - PS[facility]CHIATRY [facility] [place] [facility] Dec 08, 2023 09:00 AM AMBULATORY - MEDICINE [facility] [place] [facility] Dec 08, 2023 09:01 AM AMBULATORY - MEDICINE [facility] Lab Results: +/- 30 days of [...] Result - Unit Interpretation Reference Range Comment Sep 17, 2023 07:56 AM [facility] [place] [facility] LIPID PANEL FASTING Specimen Type: SERUM No comment entered. Ordering Provider: FURCOLO,SUBHA Report Released Date/Time: May 21, 2023 03:02 PM Reporting Lab: [facility] [address] [address] Performing Lab: [facility] [address] [address] CHOLESTEROL 208 mg/dL H TRIGLYCERIDE 154 mg/dL H 0-150 LDL calculated 139 mg/dL H 0-129 CHOL/HDL 5.5 HDL CHOLESTEROL 38 mg/dL L 40-60 Sep 17, 2023 07:56 AM [facility] BASIC METABOLIC PANEL (non-fasting) Specimen Type: SERUM No comment entered. Ordering Provider: SUBHA VELAZQUEZ Report Released Date/Time: May 21, 2023 03:02 PM Reporting Lab: [facility] [address] [address] Performing Lab: [address] [address] UREA NITROGEN 30 mg/dL H 7-25 GLUCOSE 93 mg/dL 65-100 SODIUM 139 mmol/L 135-145 POTASSIUM 4.3 mmol/L 3.5-5.0 CHLORIDE 106 mmol/L 100-110 CO2 26 meq/L 20-30 CREATININE, Serum 0.99 mg/dL 0.50-1.40 eGFR(CKD-EPI 2020) 77 mL/min >60 Social History: Smoking Status (Most current) and Tobacco Use (All prior to encounter date) This section includes the most current, and the historical, smoking and tobacco- related health factors from the [place] facility where the Encounter took place. Current Smoking Status This section includes the most current smoking, or tobacco-related health factor, from the [place] facility where the Encounter took place. Date/Time Current Smoking Status Comment Louisa koenig May 19, 2023 01:00 PM VA-TOBACCO NEVER USED [facility] Tobacco Use History This section includes a history of the smoking, or tobacco-related health factors, that were collected on or before the date of the Encounter. The data comes from the [place] facility where the Encounter took place. Date/Time Smoking Status/Tobacco Use Comment Gisele villalobos June 17, 2022 01:00 PM VA-TOBACCO NEVER USED [facility] [place] [facility] Jul 16, 2021 01:00 PM VA-TOBACCO NEVER USED [facility] [place] [facility] July 03, 2020 01:00 PM VA-TOBACCO NEVER USED [facility] [place] [facility] Jul 11, 2019 02:57 PM VA-TOBACCO NEVER USED [facility] [place] [facility] Jan 14, 2019 08:50 AM VA-TOBACCO NEVER USED [facility] [place] [facility] Mar 04, 2018 01:20 PM VA-TOBACCO NEVER USED [facility] [place] [facility] May 27, 2017 11:01 AM LIFETIME NON-TOBACCO USER [facility] [place] [facility] May 20, 2016 10:51 AM LIFETIME NON-TOBACCO USER [facility] [place] [facility] May 03, 2015 01:13 PM LIFETIME NON-TOBACCO USER [facility] [place] [facility] Advance Directives: All historical and current Section Date Range: From patient's date of to the date document was created. This section includes ALL of a patient's completed or amended [place] Advance and Rescinded Directives. The entries below indicate that a directive exists for the patient, but an actual copy is not included with this document. The data comes from all [place] facilities. Date Advance Directives Provider Source Nov 08, 2019 ADVANCE DIRECTIVE MIGDALIA MILES IN [facility] [place] [facility] Apr 14, 2019 ADVANCE DIRECTIVE RAFAL BULLARD IN C [facility]TR[facility] [place] [facility] Encounter Notes: All associated encounter notes This section contains the clinical notes associated to the Encounter. Date/Time Encounter Note(s) Provider Source Sep 08, 2023 01:07 PM MENTAL HEALTH DIAG NOSTIC STUDY NOTE: LOCAL TITLE: MENTAL HEALTH DIAGNOSTIC STUDY STANDARD TITLE: MENTAL HEALTH DIAGNOSTIC STUDY NOTE DATE OF NOTE: SEP 08, 2023@13:07:02 ENTRY DATE: SEP 08, 2023@13:07:02 AUTHOR: NATHAN KIRK COSIGNER: URGENCY: STATUS: COMPLETED These assessments were completed by PRASANTH FENG via provider direct entry on 09/08/2023 1:06:14 PM. PATIENT HEALTH QUESTIONNAIRE-9 (PHQ-9) The patient reported some symptoms of depression; symptoms are not consistent with a major depressive episode. Patient reported being bothered by the following over the last 2 weeks: 1. Little interest or pleasure: Not at all 2. Feeling down, depressed or hopeless: Not at all 3. Trouble sleeping: Several Days 4. Tired, low energy: Not at all 5. Poor appetite, over-eating: Not at all 6. Feelings of failure, guilt: Not at all 7. Trouble concentrating: Not at all 8. Motor retardation, agitation: Not at all 9. Thoughts better off /hurting self: Not at all PHQ-9 total score = 1 1-4 = minimal symptoms 5-9= mild symptoms 10-14= moderate symptoms 15-19= moderately severe symptoms 20-27= severe depressive symptoms The patient stated that the depressive symptoms made it not at all difficult to work, take care of things at home, or get along with others. /rosio/ NATHAN KIRK, Ph.D Clinical Psychologist Signed: 09/08/2023 19:50 NATHAN KIRK [facility] [place] [facility] Sep 08, 2023 12:58 PM TELEHEALTH NOTE: LOCAL TITLE: VA VIDEO CONNECT PSYCHOLOGY NOTE STANDARD TITLE: TELEHEALTH NOTE DATE OF NOTE: SEP 08, 2023@12:58 ENTRY DATE: SEP 08, 2023@12:58:37 AUTHOR: NATHAN KIRK EXP COSIGNER: URGENCY: STATUS: COMPLETED VA Video Connect (VVC) Standard Documentation VVC Clinician Resources Only: E911 (Emergency Call Relay Center): [phone] [facility] Crisis Line - 988 then press #1. CW Suicide Coordinator [phone], Ext. [phone]; Back-up Ext. [phone] [place] Police, Napoleon JOSHUA [phone] Introduction: Visit is being conducted by [place] Video Connect. Shiloh identified with 2 identifiers: [X] Full Name [ ] Date of [ ] VA ID Card [X] Visual Recognition Emergency Plan: Shiloh confirmed and/or provided the following information in case of emergency or technology failure. PATIENT PHONE - PHONE NUMBER [CELLULAR] - Is patient phone number correct, if not, enter below: Shiloh's phone number: PRASANTH FENG [address], [place], [address] 's present location and address for appointment: [address] [address] Shiloh's emergency contact name and phone number: Layla Feng reported that location is private and safe: Yes Informed Consent: informed of the risks and benefits of Telehealth video care. Shiloh has the right to refuse video services. If refuses video visit, a [id number] visit will be scheduled. 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 Provided Suicide Prevention Hotline number, and other contact numbers as necessary. VISIT DURATION: 47 Minutes DIAGNOSIS: PTSD [employer] STATEMENT OF GOALS/CONCERNS: Reduce irritability, avoidance, work on current challenges (including medical issues, particularly, cancer diagnosis), relationship issues, increase. meaningful activities and remain connected with people he is close to. SESSION FOCUS: 1) Shiloh shared thoughts and emotions regarding current medical issues. He identified continued concerns about finding answers regarding his sleep apnea, incontinence, and his hearing. He is working with his PCP to address his concerns. is currently working on a second claim regarding toxic exposure from [employer]. 2) reported feeling a little down regarding his frustrations with the amount of time and effort he spends on his health, and medical claims. He stated that he is not depressed , however, feels the grind of the entire process. 3) Discussed the importance of having balance in his life and recognizing that he has not focused on the things he enjoys, in a long time. Explored meaningful activities he would like to incorporate in his life, including spending time with family and friends, going to his cabin in [place], and working on projects he enjoys. 4) Coping skills and self-compassion. INTERVENTIONS: Explored goals around engaging in meaningful activities, limit news and triggering television programs, focus on the things he can control, [...] PLAN FOR FOLLOW-UP: Next session planned for: 09/15/23 at 1:00pm /rosio/ NATHAN KIRK, Ph.D Clinical Psychologist Signed: 09/09/2023 22:13 NATHAN KIRK IN CNT [facility]
--- OUTSIDE RECORDS SUMMARY | 2024-02-16 09:10 | XMS_ITS | Encounter Summary ---
Author Name [facility] [place] [facility] [place] Organization [facility] [place] Address [address] [place] [address] Care Team Providers Care Paper Cutter Operator Name Role Phone SUBHA VELAZQUEZ Primary [...] Relationship to Policy Bryson GREGORY PUGA-WN R [place] SPECIAL CLASS GREGORY DIOP Sep 15, 2011 GREGORY PUGA [id number] [phone] PAULA GONZALES [facility] [place] MEDICARE SUPPLEMEN [facility] [employer] [employer] [facility] Aug 09, 2017 [id number] [phone] PAULA GONZALES [facility] [place] MEDICARE SUPPLEMEN [facility] [employer] [facility] [facility] SUPP PL Aug 09, 2017 [id number] PAULA GONZALES PATIENT MEDICARE (WNR) MEDICARE (M) PART A Nov 10, 2019 PART A [id number] PAULA GONZALES PATIENT MEDICARE (WNR) MEDICARE (M) PART B Apr 09, 2010 PART B [id number] PAULA GONZALES PATIENT MEDICARE (WNR) MEDICARE (M) PART B Apr 09, 2010 PART B [id number] PAULA GONZALES PATIENT MEDICARE (WNR) MEDICARE (M) PART B Apr 09, 2010 PART B [id number] PAULA GONZALES PATIENT MEDICARE (WNR) MEDICARE (M) PART A Nov 09, 2009 PART A [id number] PAULA GONZALES PATIENT MEDICARE (WNR) MEDICARE (M) PART A Nov 09, 2009 PART A [id number] PAULA GONZALES PATIENT Selected Encounter This section includes the information on record at [place] for the Encounter. Date/Time Encounter Type Encounter Description Reason Pro vider Source Aug 27, 2023 01:44 PM Outpatient Encounter COMMUNITY CARE CONSULT IHE Encounter Template Text not used by [place] Plan of Treatment: Future Appointments (+ 6 months) and Future Tests (+/- 45 days) The Plan of Treatment section includes future care activities for the [facility] [place] [facility] This section includes future appointments and future orders which are active, pending or scheduled. Future Appointments This section includes appointments that were scheduled to occur 6 months from the date of the Encounter, up to a maximum of 20 appointments. The data comes from all [place] treatment facilities. Appointment Date/Time Appointment Type Appointme nt Facility Name Sep 01, 2023 01:00 PM AMBULATORY - PS[place]CHIATRY [facility] [facility] [place] [facility] Sep 08, 2023 01:00 PM AMBULATORY - PSYCHIATRY [facility] [place] [facility] Sep 15, 2023 01:00 PM AMBULATORY - PSYCHIATRY [facility] [place] [facility] Sep 22, 2023 01:00 PM AMBULATORY - PSYCHIATRY [facility] [place] [facility] Sep 24, 2023 09:00 AM AMBULATORY - MEDICINE [facility] [facility] [place] [facility] Sep 24, 2023 10:30 AM AMBULATORY - MEDICINE [place] [facility] [place] [facility] Sep 24, 2023 11:30 AM AMBULATORY - REHAB MEDICIN E [facility] [place] [facility] Sep 25, 2023 01:00 PM AMBULATORY - MEDICINE [facility] [facility] [place] [facility] [...] [facility] [place] [facility] Nov 05, 2023 09:00 AM AMBULATORY - REHAB MEDICIN E [facility] [place] [facility] Nov 05, 2023 12:00 PM AMBULATORY - MEDICINE [facility] [place] [facility] Nov 10, 2023 01:00 PM AMBULATORY - PSYCHIATRY [facility] [place] [facility] Nov 17, 2023 01:00 PM AMBULATORY - PSYCHIATRY [facility] [place] [facility] Dec 01, 2023 01:00 PM AMBULATORY - PSYCHIATRY [facility] [place] [facility] Lab Results: +/- 30 days of [...] Range Comment Sep 17, 2023 07:56 AM [facility] [facility] [place] [facility] BASIC METABOLIC PANEL (non-fasting) Specimen Type: SERUM No comment entered. Ordering Provider: SUBHA VELAZQUEZ Report Released Date/Time: May 21, 2023 03:02 PM Reporting Lab: [facility] [address] [address] Performing Lab: [facility] [address] [address] UREA NITROGEN 30 mg/dL H 7-25 GLUCOSE 93 mg/dL 65-100 SODIUM 139 mmol/L 135-145 POTASSIUM 4.3 mmol/L 3.5-5.0 CHLORIDE 106 mmol/L 100-110 CO2 26 meq/L 20-30 CREATININE, Serum 0.99 mg/dL 0.50-1.40 eGFR(CKD-EPI 2020) 77 mL/min >60 Sep 17, 2023 07:56 AM [facility] LIPID PANEL FASTING Specimen Type: SERUM No comment entered. Ordering Provider: SUBHA VELAZQUEZ Report Released Date/Time: May 21, 2023 03:02 PM Reporting Lab: [facility] [address] [address] Performing Lab: [address] [address] CHOLESTEROL 208 mg/dL H TRIGLYCERIDE 154 mg/dL H 0-150 LDL calculated 139 mg/dL H 0-129 CHOL/HDL 5.5 HDL CHOLESTEROL 38 mg/dL L 40-60 Social History: Smoking Status (Most current) and Tobacco Use (All prior to encounter date) This section includes the most current, and the historical, smoking and tobacco- related health factors from the [place] facility where the Encounter took place. Current Smoking Status This section includes the most current smoking, or tobacco-related health factor, from the [place] facility where the Encounter took place. Date/Time Current Smoking Status Comment Louisa koenig May 19, 2023 01:00 PM VA-TOBACCO [facility]ED [facility] Tobacco Use History This section includes a history of the smoking, or tobacco-related health factors, that were collected on or before the date of the Encounter. The data comes from the [place] facility where the Encounter took place. Date/Time Smoking Status/Tobacco Use Comment Gisele accynthia June 17, 2022 01:00 PM VA-TOBACCO NEVER USED [place] [facility] [place] [facility] Jul 16, 2021 01:00 PM VA-TOBACCO NEVER USED [facility] [place] [facility] July 03, 2020 01:00 PM VA-TOBACCO NEVER USED [place] [facility] [place] [facility] Jul 11, 2019 02:57 PM VA-TOBACCO NEVER USED [place] [facility] [facility] Jan 14, 2019 08:50 AM VA-TOBACCO NEVER USED [facility] [place] [facility] Mar [...] [facility] [place] [facility] Advance [...] this document. The data comes from all [place] facilities. Date Advance Directives Provider Source Nov 08, 2019 ADVANCE DIRECTIVE MIGDALIA MILES [place] [facility] [place] [facility] Apr 14, 2019 ADVANCE DIRECTIVE RAFAL BULLARD [facility] Encounter Notes: All associated encounter notes This section contains the clinical notes associated to the Encounter. Date/Time Encounter Note(s) Provider Source Aug 27, 2023 01:44 PM NONVA NOTE: LOCAL TITLE: [facility] PRESENTING CARE COORD PLAN STANDARD TITLE: NONVA NOTE DATE OF NOTE: AUG 27, 2023@13:44 ENTRY DATE: AUG 27, 2023@13:45:14 AUTHOR: MACEY CLEMONS EXP COSIGNER: URGENCY: STATUS: COMPLETED Emergency Notification Intake Date Presenting to the Facility: Jul Method of Contact: Notified from ECR worklist Notification ID: [id number] [facility] Referral #: [id number] [facility] Hospital Name: Hospital: [facility] Address: City: [place] State: [place] Zip Code: Phone : Community Facility Point of Contact: Name: Sandra Phone: Chief complaint: Fall Primary Diagnosis: Disposition Discharged Date of discharge: Jul Discharge to Comment: ER Only /rosio/ MACEY ROTHMAN Signed: 08/27/2023 13:46 Receipt Acknowledged By: 08/27/2023 16:47 /es/ SUBHA VELAZQUEZ D.O. PHYSICIAN 08/27/2023 15:10 /es/ LOGAN CYR, NAMRATA REGISTERED NURSE [facility]Y [facility]
--- OUTSIDE RECORDS SUMMARY | 2024-02-16 09:10 | XMS_ITS | Encounter Summary ---
Author Name [facility] [place] Organization [place] Address [address] [place] [address] Care Team Providers Care Security Systems Technician Name Role Phone SUBHA VELAZQUEZ Primary [...] GREGORY DIOP Sep 15, 2011 GREGORY PUGA [id number] PAULA GONZALES PATIENT [facility] [place] MEDICARE [facility]MEN [facility] Aug 09, 2017 [id number] [phone] PAULA GONZALES PATIENT [facility] [place] MEDICARE SUPPLEMEN [facility] SUPP [address] Aug 09, 2017 [id number] [phone] PAULA GONZALES PATIENT MEDICARE (WNR) MEDICARE (M) PART A Nov 10, 2019 PART A [id number] PAULA GNOZALES PATIENT MEDICARE (WNR) MEDICARE (M) PART B Apr 09, 2010 PART B [id number] PAULA GONZALES PATIENT MEDICARE (WNR) MEDICARE (M) PART B Apr 09, 2010 PART B [id number] PAULA GONZALES PATIENT MEDICARE (WNR) MEDICARE (M) PART B Apr 09, 2010 PART B [id number] PAULA GONZALES PATIENT MEDICARE (WNR) MEDICARE (M) PART A Nov 09, 2009 PART A [id number] PAULA GONZALES PATIENT MEDICARE (WNR) MEDICARE (M) PART A Nov 09, 2009 PART A [id number] PAULA GONZALES PATIENT Selected Encounter This section includes the information on record at [place] for the Encounter. Date/Time Encounter Type Encounter Description Reason Provider Source Jul 28, 2023 01:00 PM PSYTX W PT 45 MINUTES [facility] - IND ICD-10-CM F43.10 Post-traumatic stress disorder, unspecified NATHAN KIRK Mikhail Encounter Template Text not used by [place] Assessments - Encounter Diagnoses This section includes the primary and secondary diagnoses documented for the Encounter. Date/Time Primary/Secondary Diagnosis Diagnosis Name Provider Source Jul 31, 2023 11:36 PM PRIMARY Post-traumatic stress disorder, unspecified NATHAN KIRK [facility] Plan of Treatment: Future Appointments (+ 6 months) and Future Tests (+/- 45 days) The Plan of Treatment section includes future care activities for the patient from all [place] treatmentfacilities. This section includes future appointments and future orders which are active, pending or scheduled. Future Appointments This section includes appointments that were scheduled to occur 6 months from the date of the Encounter, up to a maximum of 20 appointments. The data comes from all [place] treatment facilities. Appointment Date/Time Appointment Type Appointme nt Facility Name Aug 04, 2023 01:00 PM AMBULATORY - [place]RY [place] [facility] [place] [facility] Aug 11, 2023 09:00 AM AMBULATORY [place]IC[place] [facility] [place] [facility] Aug 11, 2023 01:00 PM AMBULATORY - [place]ATRY [place] [facility] [place] [facility] Aug 17, 2023 10:00 AM AMBULATORY - REHAB MEDICIN E [place] [facility] [place] [facility] Sep 01, 2023 01:00 PM AMBULATORY - [facility]ATRY [place] [facility] [place] [facility] Sep 08, 2023 01:00 PM AMBULATORY - [facility]IATRY [facility] [place] [facility] Sep 15, 2023 01:00 PM AMBULATORY - [facility]IATRY [facility] [place] [facility] Sep 22, 2023 01:00 PM AMBULATORY - [facility]IATRY [facility] [place] [facility] Sep 24, 2023 09:00 AM AMBULATORY [facility] MEDICINE [facility] [place] [facility] Sep 24, 2023 10:30 AM AMBULATORY - MEDICINE [facility] [place] [facility] Sep 24, 2023 11:30 AM AMBULATORY - REHAB MEDICIN E [facility] [place] [facility] Sep 25, 2023 01:00 PM AMBULATORY - MEDICINE [facility] [place] [facility] Sep 29, 2023 01:00 PM AMBULATORY - PS[facility]CHIATRY [facility] [place] [facility] Oct 13, 2023 08:00 AM AMBULATORY - MEDICINE [facility] [place] [facility] Oct 13, 2023 01:00 PM AMBULATORY - PS[facility]CHIATRY [facility] [place] [facility] Oct 14, 2023 08:00 AM AMBULATORY - MEDICINE [facility] [place] [facility] Oct 20, 2023 01:00 PM AMBULATORY - PS[facility]CHIATRY [facility] [place] [facility] Oct 27, 2023 01:00 PM AMBULATORY - PS[facility]CHIATRY [facility] [place] [facility] Nov 03, 2023 01:00 PM AMBULATORY - PS[facility]CHIATRY [facility] [place] [facility] Nov 05, 2023 09:00 AM AMBULATORY - REHAB MEDICIN E [facility] [place] [facility] Social History: Smoking Status (Most [...] 19, 2023 01:00 PM VA-TOBACCO NEVER USED [place] [facility] [place] [facility] Tobacco Use History This section includes a history of the smoking, or tobacco-related health factors, that were collected on or before the date of the Encounter. The data comes from the [place] facility where the Encounter took place. Date/Time Smoking Status/Tobacco Use Comment F acility June 17, 2022 01:00 PM VA-TOBACCO NEVER USED [facility] [place] [facility] Jul 16, 2021 01:00 PM VA-TOBACCO NEVER USED [facility] [place] [facility] July 03, 2020 01:00 PM VA-TOBACCO NEVER USED [facility] [place] [facility] Jul 11, 2019 02:57 PM VA-TOBACCO NEVER USED [facility] [place] [facility] Jan 14, 2019 08:50 AM VA-TOBACCO NEVER USED [facility] [place] [facility] Mar 04, 2018 01:20 PM VA-TOBACCO NEVER USED [facility] [place] [facility] May 27, 2017 11:01 AM LIFETIME NON-TOBACCO USER [facility] [place] [facility] May 20, 2016 10:51 AM LIFETIME NON-TOBACCO USER [facility] [place] [facility] May 03, 2015 01:13 PM LIFETIME NON-TOBACCO USER [place] [facility] [place] [facility] Advance Directives: All historical and [...] ADVANCE DIRECTIVE MIGDALIA MILES [place] [facility] [place] [facility] Apr 14, 2019 ADVANCE DIRECTIVE RAFAL BULLARD [place] [facility] [place] [facility] Encounter Notes: All associated encounter notes This section contains the clinical notes associated to the Encounter. Date/Time Encounter Note(s) Provider Source Jul 28, 2023 01:01 PM TELEHEALTH NOTE: LOCAL TITLE: [place] VIDEO CONNECT PSYCHOLOGY NOTE STANDARD TITLE: TELEHEALTH NOTE DATE OF NOTE: JUL 28, 2023@13:01 ENTRY DATE: JUL 28, 2023@13:01:10 AUTHOR: NATHAN KIRK EXP COSIGNER: URGENCY: STATUS: COMPLETED [place] VIDEO CONNECT PSYCHOLOGY NOTE Has ADDENDA [place] Video Connect (VVC) Standard Documentation VVC Clinician Resources Only: E911 (Emergency Call Relay Center): [phone] National [employer] Crisis Line - 988 then press #1. [place] Suicide Coordinator [phone], Ext. [phone]; Back-up Ext. [phone] [place] Police, SETHRogelio, [place] [phone] Introduction: Visit is being conducted by [facility]. identified with 2 identifiers: [X] Full Name [ ] Date of [ ] [place] ID Card [X] Visual Recognition Emergency Plan: [place] confirmed and/or provided the following information in case of emergency or technology failure. PATIENT PHONE - PHONE NUMBER [CELLULAR] - Is patient phone number correct, if not, enter below: 's phone number: PRASANTH Mayo JANET [address], [place], [address] [place]'s present location and address for appointment: [address] [place] [address]. [place] [address] 's emergency contact name and phone number: Layla Janet [place] reported that location is private and safe: Yes Informed Consent: informed of the risks and benefits of Telehealth video care. has the right to refuse video services. If refuses video visit, a [id number]-[id number] visit will be scheduled. verbalized consent for this video visit: Yes [place] provided consent for any other persons present [...] court of law and presented to a form drafter), and DOD access for active-duty service members. Provided Suicide Prevention Hotline number, and other contact numbers as necessary. VISIT DURATION: 47 Minutes DIAGNOSES: PTSD VETERANS STATEMENT OF GOALS/CONCERNS: Reduce irritability, avoidance, work on current challenges (including medical issues, particularly, cancer diagnosis), relationship issues, increase. meaningful activities and remain connected with people he is close to. SESSION FOCUS: Session focused on details and concerns regarding 's medical issues, family dynamics and marital challenges. Art shared that his second knee replacement surgery (in the local community) was the toughest of all of his recent surgeries. He stated that he was sent home the same day of his surgery, and that he had a fall that evening. He shared that he had to return to the hospital the next day to assess any damage, and that he felt relieved that he was okay. However, Art stated that he continues to have dizziness and issues with vertigo. Art also shared that he believes he has some neurological issues that are causing his incontinence. He plans to address his concerns with his PCP. The remainder of the session focused on family dynamics, and marital challenges. Art shared that his has separate rules for visits with his adult children versus visits with her adult children and the impact of that on the family dynamics. Revisited coping skills, self-care, and addressed the importance of finding balance in his life. INTERVENTIONS: Psychotherapeutic Interventions: [...] PLAN FOR FOLLOW-UP: Next session planned for: 08/04/23 at 1:00pm /rosio/ NATHAN KIRK, Ph.D Clinical Psychologist Signed: 07/31/2023 23:36 07/31/2023 ADDENDUM STATUS: COMPLETED Correction: PLAN FOR FOLLOW-UP: Next session planned for: 08/11/23 at 1:00pm /rosio/ NATHAN KIRK, Ph.D Clinical Psychologist Signed: 07/31/2023 23:40 NATHAN KIRK [place] [facility]
--- OUTSIDE RECORDS SUMMARY | 2024-02-16 09:10 | XMS_ITS | Encounter Summary ---
Author Name [facility] [place] [place] [facility] [place] Organization [place] Address [address] [place] [address] Care Team Providers Care Personal Lines Appraiser Name Role Phone SUBHA VELAZQUEZ Primary Care [...] Relationship to Policy Bryson GREGORY PUGA-WN R [place] SPECIAL CLASS GREGORY DIOP Sep 15, 2011 GREGORY PUGA [id number] PAULA FENG PATIENT [facility] [place] MEDICARE SUPPLEMEN [facility] [employer] [facility] Aug 09, 2017 [id number] PAULA FENG PATIENT [facility] [place] [facility] SUPPLEMEN [place] PENDING SALE TO [facility] Aug 09, 2017 [id number] PAULA FENG PATIENT MEDICARE (WNR) MEDICARE (M) PART A Nov 10, 2019 PART A [id number] PAULA FENG PATIENT MEDICARE (WNR) MEDICARE (M) PART B Apr 09, 2010 PART B [id number] [id number] PAULA FENG PATIENT MEDICARE (WNR) MEDICARE (M) PART B Apr 09, 2010 PART B [id number] PAULA FENG PATIENT MEDICARE (WNR) MEDICARE (M) PART B Apr 09, 2010 PART B [id number] [phone] PAULA FENG PATIENT MEDICARE (WNR) MEDICARE (M) PART A Nov 09, 2009 PART A [id number] PAULA FENG PATIENT MEDICARE (WNR) MEDICARE (M) PART A Nov 09, 2009 PART A [id number] PAULA FENG PATIENT Selected Encounter This section includes the information on record at [place] for the Encounter. Date/Time Encounter Type Encounter Description Reason Provider Source Aug 04, 2023 01:00 PM PSYTX W PT 45 MINUTES [facility] - IND ICD-10-CM F43.10 Post-traumatic stress disorder, unspecified NATHAN KIRK Mikhail Encounter Template Text not used by [place] Assessments - Encounter Diagnoses This section includes the primary and secondary diagnoses documented for the Encounter. Date/Time Primary/Secondary Diagnosis Diagnosis Name Provider Source Aug 04, 2023 09:04 PM PRIMARY Post-traumatic stress disorder, unspecified NATHAN KIRK [facility] Plan of Treatment: Future Appointments (+ 6 months) and Future Tests (+/- 45 days) The Plan of Treatment section includes future care activities for the patient from all [place] treatmentfacilities. This section includes future appointments and future orders which are active, pending or scheduled. Future Appointments This section includes appointments that were scheduled to occur 6 months from the date of the Encounter, up to a maximum of 20 appointments. The data comes from all [place] treatment facilities. Appointment Date/Time Appointment Type Appointme nt Facility Name Aug 11, 2023 09:00 AM [facility] [place] [facility] Aug 11, 2023 01:00 PM AMBULATORY - PS[place]IATRY [place] [facility] [place] [facility] Aug 17, 2023 10:00 AM AMBULATORY - REHAB MEDICIN E [place] [facility] [place] [facility] Sep 01, 2023 01:00 PM AMBULATORY - PS[place]CHIATRY [place] [facility] [place] [facility] Sep 08, 2023 01:00 PM AMBULATORY - PSYCHIATRY [place] [facility] [place] [facility] Sep 15, 2023 01:00 PM AMBULATORY - PS[facility]CHIATRY [facility] [place] [facility] Sep 22, 2023 01:00 PM AMBULATORY - PSYCHIATRY [facility] [place] [facility] Sep 24, 2023 09:00 AM AMBULATORY - MEDICINE [facility] [place] [facility] Sep 24, 2023 10:30 AM AMBULATORY - MEDICINE [facility] [place] [facility] Sep 24, 2023 11:30 AM AMBULATORY - REHAB MEDICIN E [facility] [place] [facility] Sep 25, 2023 01:00 PM AMBULATORY - MEDICINE [facility] [place] [facility] Sep 29, 2023 01:00 PM AMBULATORY - PS[facility]CHIATRY [facility] [place] [facility] Oct 13, 2023 08:00 AM AMBULATORY - MEDICINE [facility] [place] [facility] Oct 13, 2023 01:00 PM AMBULATORY - PSYCHIATRY [facility] [place] [facility] Oct 14, 2023 08:00 AM AMBULATORY - MEDICINE [facility] [place] [facility] Oct 20, 2023 01:00 PM AMBULATORY - PSYCHIATRY [facility] [place] [facility] Oct 27, 2023 01:00 PM AMBULATORY - PS[facility]CHIATRY [facility] [place] [facility] Nov 03, 2023 01:00 PM AMBULATORY - PSYCHIATRY [facility] [place] [facility] Nov 05, 2023 09:00 AM AMBULATORY - REHAB MEDICIN E [facility] [place] [facility] Nov 05, 2023 12:00 PM AMBULATORY - MEDICINE [facility] [place] [facility] Social History: Smoking Status (Most current) [...] NEVER USED [facility] [place] [facility] Tobacco Use History This section includes a history of the smoking, or tobacco-related health factors, that were collected on or before the date of the Encounter. The data comes from the [place] facility where the Encounter took place. Date/Time Smoking Status/Tobacco Use Comment F acility June 17, 2022 01:00 PM VA-TOBACCO NEVER USED [facility] [place] [facility] Jul 16, 2021 01:00 PM VA-TOBACCO NEVER USED [facility] [place] [facility] July 03, 2020 01:00 PM VA-TOBACCO NEVER USED [facility] [place] [facility] Jul 11, 2019 02:57 PM VA-TOBACCO NEVER USED [facility] [place] [facility] Jan 14, 2019 08:50 AM VA-TOBACCO NEVER USED [facility] [place] [facility] Mar 04, 2018 01:20 PM VA-TOBACCO NEVER USED [facility] [place] [facility] May 27, 2017 11:01 AM LIFETIME NON-TOBACCO USER [facility] [place] [facility] May 20, 2016 10:51 AM LIFETIME NON-TOBACCO USER [facility] [place] [facility] May 03, 2015 01:13 PM LIFETIME NON-TOBACCO USER [place] [facility] [place] [facility] Advance Directives: All historical and current Section Date Range: From patient's date of to the date document was created. This section includes ALL of a patient's completed or amended [place] Advance and Rescinded Directives. The entries below indicate that a directive exists for the patient, but an actual copy is not included with this document. The data comes from all [place] facilities. Date Advance Directives Provider Source Nov 08, 2019 ADVANCE DIRECTIVE MIGDALIA MILES [place] [facility] [place] [facility] Apr 14, 2019 ADVANCE DIRECTIVE RAFAL BULLARD [place] [facility] [place] [facility] Encounter Notes: All associated encounter notes This section contains the clinical notes associated to the Encounter. Date/Time Encounter Note(s) Provider Source Aug 04, 2023 01:03 PM TELEHEALTH NOTE: LOCAL TITLE: [place] VIDEO CONNECT PSYCHOLOGY NOTE STANDARD TITLE: TELEHEALTH NOTE DATE OF NOTE: AUG 04, 2023@13:03 ENTRY DATE: AUG 04, 2023@13:03:19 AUTHOR: NATHAN KIRK EXP COSIGNER: URGENCY: STATUS: COMPLETED VA Video Connect (VVC) Standard Documentation VVC Clinician Resources Only: E911 (Emergency Call Relay Center): [phone] National [employer] Crisis Line - 988 then press #1. [place] Suicide Coordinator [phone], Ext. [phone]; Back-up Ext. [phone] [place] Police, [place] JOSHUA [phone] Introduction: Visit is being conducted by [employer] [facility]. [place] identified with 2 identifiers: [X] Full Name [ ] Date of [ ] VA ID Card [X] Visual Recognition Emergency Plan: [place] confirmed and/or provided the following information in case of emergency or technology failure. PATIENT PHONE - PHONE NUMBER [CELLULAR] - Is patient phone number correct, if not, enter below: 's phone number: PRASANTH FENG [address], [place], [address] [place]'s present location and address for appointment: [address] [place] [address]. [place] [address] 's emergency contact name and phone number: Layla Feng reported that location is private and safe: Yes Informed Consent: [place] informed of the risks and benefits of Telehealth video care. has the right to refuse video services. If refuses video visit, a [id number]-[id number] visit will be scheduled. 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 Provided Suicide Prevention Hotline number, and other contact numbers as necessary. VISIT DURATION: 45 Minutes DIAGNOSIS: PTSD VETERANS STATEMENT OF GOALS/CONCERNS: Reduce irritability, avoidance, work on current challenges (including medical issues, particularly, cancer diagnosis), relationship issues, increase. meaningful activities and remain connected with people he is close to. SESSION FOCUS: shared recent symptoms he struggles with, particularly, increased anxiety when watching the news, and current politics. He also shared reported concerns regarding multiple medical issues, including increased headaches and dizziness. He plans to follow up with his PCP. [place] stated he continues to work on claims related to toxic exposures, including those from [place], stating that it takes a lot of his time. Revisited goal of increasing outside activities to improve his quality of life and balance. stated he will engage in more enjoyable activities when he has his claims and medical issues taken care of. Processed 's thoughts, including, considering that he doesn't have to wait for anything to happen to live his life in a more balanced way. He expressed realizing that he can do the things he needs to do and still have time for activities he enjoys. He stated that he recently went out to dinner with friends, watched a show about hunting that he found interesting, and that he plans to make a trip to [place] in two weeks, which he loves. Will revisit goals next session. INTERVENTIONS: Psychotherapeutic Interventions: Limit news [...] /rosio/ NATHAN KIRK, Ph.D Clinical Psychologist Signed: 08/04/2023 21:05 [facility]
--- OUTSIDE RECORDS SUMMARY | 2024-02-16 09:10 | XMS_ITS | Encounter Summary ---
Author Name [facility] [place] [facility] [place] [facility] [place] Address [address] [place] [address] Care Team Providers Care Human Geography Faculty Member Name Role Phone SUBHA VELAZQUEZ Primary Care [...] SPECIAL CLASS GREGORY DIOP Sep 15, 2011 GREOGRY PUGA [id number] PAULA GONZALES [facility] Aug 09, 2017 [id number] [phone] PAULA GONZALES [facility] Aug 09, 2017 [id number] PAULA GONZALES PATIENT MEDICARE (WNR) MEDICARE (M) PART A Nov 10, 2019 PART A [id number] PAULA GONZALES PATIENT MEDICARE (WNR) MEDICARE (M) PART B Apr 09, 2010 PART B [id number] PAULA GONZALES PATIENT MEDICARE (WNR) MEDICARE (M) PART B Apr 09, 2010 PART B [id number] PAULA GONZALES PATIENT MEDICARE (WNR) MEDICARE (M) PART B Apr 09, 2010 PART B [id number] [phone] PAULA GONZALES PATIENT MEDICARE (WNR) MEDICARE (M) PART A Nov 09, 2009 PART A [id number] PAULA GONZALES PATIENT MEDICARE (WNR) MEDICARE (M) PART A Nov 09, 2009 PART A [id number] [phone] PAULA GONZALES PATIENT Selected Encounter This section includes the information on record at [place] for the Encounter. Date/Time Encounter Type Encounter Description Reason Provider Source Aug 17, 2023 10:00 AM HEARING AID REPAIR/MODIFYIN G AUDIOLOGY ICD-10-CM Z46.1 Encounter for fitting and adjustment of hearing aid ELEAZAR SHINE Encounter Template Text not used by [place] Assessments - Encounter Diagnoses This section includes the primary and secondary diagnoses documented for the Encounter. Date/Time Primary/Secondary Diagnosis Diagnosis Name Provider Source Aug 17, 2023 10:21 AM PRIMARY Encounter for fitting and adjustment of hearing aid [facility]Z [facility] Aug 17, 2023 10:21 AM SECONDARY Sensorineural hearing loss, bilateral BENJIE SÁNCHEZ [facility] Plan of Treatment: Future Appointments (+ 6 months) and Future Tests (+/- 45 days) The Plan of Treatment section includes future care activities for the [facility] [place] [facility]. This section includes future appointments [...] 01, 2023 01:00 PM [facility] Sep 08, 2023 01:00 PM [facility] Sep 15, 2023 01:00 PM [facility] [place] [facility] Sep 22, 2023 01:00 PM AMBULATORY - PS[facility]CHIATRY [facility] [place] [facility] Sep 24, 2023 09:00 AM AMBULATORY - MEDICINE [facility] [place] [facility] Sep 24, 2023 10:30 AM AMBULATORY - MEDICINE [facility] [place] [facility] Sep 24, 2023 11:30 AM AMBULATORY - REHAB MEDICIN [facility] [place] [facility] Sep 25, 2023 01:00 PM AMBULATORY - MEDICINE [facility] [place] [facility] Sep 29, 2023 01:00 PM AMBULATORY - PSYCHIATRY [facility] [place] [facility] Oct 13, 2023 08:00 AM AMBULATORY - MEDICINE [facility] [place] [facility] Oct 13, 2023 01:00 PM AMBULATORY - PSYCHIATRY [facility] [place] [facility] Oct 14, 2023 08:00 AM AMBULATORY - MEDICINE [facility] [place] [facility] Oct 20, 2023 01:00 PM AMBULATORY - PSYCHIATRY [facility] [place] [facility] Oct 27, 2023 01:00 PM AMBULATORY - PSYCHIATRY [facility] [place] [facility] Nov 03, 2023 01:00 PM AMBULATORY - PSYCHIATRY [facility] [place] [facility] Nov 05, 2023 09:00 AM AMBULATORY - REHAB MEDICIN E [facility] [place] [facility] Nov 05, 2023 12:00 PM AMBULATORY - MEDICINE [facility] [place] [facility] Nov 10, 2023 01:00 PM AMBULATORY - PSYCHIATRY [facility] [place] [facility] Nov 17, 2023 01:00 PM AMBULATORY - PSYCHIATRY [facility] [place] [facility] Dec 01, 2023 01:00 PM AMBULATORY - PSYCHIATRY [facility] [place] [facility] Social History: Smoking Status (Most current) [...] 19, 2023 01:00 PM VA-TOBACCO NEVER USED [place] [facility] [place] [facility] Tobacco Use History This section includes a history of the smoking, or tobacco-related health factors, that were collected on or before the date of the Encounter. The data comes from the [place] facility where the Encounter took place. Date/Time Smoking Status/Tobacco Use Comment Gisele accynthia June 17, 2022 01:00 PM VA-TOBACCO NEVER USED [facility] [place] [facility] Jul 16, 2021 01:00 PM VA-TOBACCO NEVER USED [facility] [place] [facility] July 03, 2020 01:00 PM VA-TOBACCO NEVER USED [facility] [place] [facility] Jul 11, 2019 02:57 PM VA-TOBACCO NEVER USED [facility] [place] [facility] Jan 14, 2019 08:50 AM VA-TOBACCO NEVER USED [facility] [place] [facility] Mar 04, 2018 01:20 PM VA-TOBACCO NEVER USED [facility] [place] [facility] May 27, 2017 11:01 AM LIFETIME NON-TOBACCO USER [place] [facility] [place] [facility] May 20, 2016 10:51 AM LIFETIME NON-TOBACCO USER [facility] [place] [facility] May 03, 2015 01:13 PM LIFETIME NON-TOBACCO USER [place] [facility] [place] [facility] Advance Directives: All historical and current [...] DIRECTIVE MIGDALIA MILES [place] [facility] [place] [facility] Apr 14, 2019 ADVANCE DIRECTIVE RAFAL BULLARD [place] [facility] [place] [facility] Encounter Notes: All associated encounter notes This section contains the clinical notes associated to the Encounter. Date/Time Encounter Note(s) Provider Source Sep 16, 2023 05:00 PM ADDENDUM: LOCAL TITLE: Addendum STANDARD TITLE: ADDENDUM DATE OF NOTE: SEP 16, 2023@17:00:17 ENTRY DATE: SEP 16, 2023@17:00:17 AUTHOR: DEXTER CASTILLO COSIGNER: URGENCY: STATUS: COMPLETED Aid and earmold received and certified. [facility] to contact [place] to schedule 30 min HAC with mapping specialist for fish bait picker. /rosio/ DEXTER Jose, NORBERTO-Terri CHIEF, AUDIOLOGY/SEPARATOR TENDER Signed: 09/16/2023 17:00 Receipt Acknowledged By: 09/17/2023 09:12 /rosio/ CINDY TRAVIS LEAD SMALL STOCK FACER ========= --- Original Document --- 08/17/23 AUDIOLOGY HEALTH CONTACT LENS FITTER: August 17, 2023 History/Background: was seen for a hearing aid follow up, unaccompanied. scheduled today's appointment requesting maintenance on his hearing aids. Clinton stated he is only wearing the left hearing aid at this time. Clinton brought in several hearing aids, the backup Resound was the only left aid that he wished to have maintenance done on at this time. Hearing aids: ReSound Linx3D ID [employer] Serial Numbers: [id number] Battery size: 13 Date Issued: 11/05/2018 Hearing aid check: Left hearing aid was cleaned and checked. Replaced size 2 thin tube. Biologic check was intermittent and weak. The left Resound hearing aid will be sent to oriental medicine practitioner for repair and mailed directly to via [facility]. Advised Clinton to look for the Left Clarisse hearing aid today and call the clinic if he is unable to locate it. If is unable to locate the one-time replacement can be ordered at that time. Plan: will follow up as needed. /es/ OLIVE SÁNCHEZ Audiology Health Tennis Player Signed: 08/17/2023 10:22 /rosio/ BERNABE HYLTON, CCC-A STAFF HOURLY SHIFT MANAGER Cosigned: 08/17/2023 11:00 08/19/2023 ADDENDUM STATUS: COMPLETED came to [facility] to discuss lost aid. He was under impression that the lost aid was canceled and that was why he didn't have it. Upon thorough review of notes, it appears that in 01/01 phone call he reported LEFT clarisse aid as lost but that on 01/16 at [facility]-he said it was the RIGHT clarisse aid. Art shows up to fish bait picker the L&D replacement and has the original right aid in his posession. It is likely that the LEFT aid, was indeed, the aid that was lost in 01/01. It is still under warranty for replacement and the L&D replacement is ordered this date. Art's left Resound BTE is also out for repair and we were going to mail that to him. Will call once both left repair and left L&D are back to see how he would like to receive these. /rosio/ DEXTER Jose, NORBERTO-A CHIEF, AUDIOLOGY/SEPARATOR TENDER Signed: 08/19/2023 13:08 09/10/2023 ADDENDUM STATUS: COMPLETED Replacement left earing aid received and certified, placed in mail bin while waiting for earmold to arrive. /fay SÁNCHEZ Audiology Health Tennis Player Signed: 09/10/2023 09:55 /fay Jose, NORBERTO-A CHIEF, AUDIOLOGY/SEPARATOR TENDER Cosigned: 09/10/2023 11:29 09/17/2023 ADDENDUM STATUS: UNSIGNED You may not VIEW this UNSIGNED Addendum. DEXTER CASITLLO [facility] [place] [facility] Aug 17, 2023 07:48 AM AUDIOLOGY NOTE: LOCAL TITLE: AUDIOLOGY HEALTH CONTACT LENS FITTER STANDARD TITLE: AUDIOLOGY NOTE DATE OF NOTE: AUG 17, 2023@07:48 ENTRY DATE: AUG 17, 2023@07:49:01 AUTHOR: OLIVE SÁNCHEZ COSIGNER: ELEAZAR SHINE URGENCY: STATUS: COMPLETED AUDIOLOGY HEALTH CONTACT LENS FITTER Has ADDENDA August 17, 2023 History/Background: Clinton was seen for a hearing aid follow up, unaccompanied. scheduled today's appointment requesting maintenance on his hearing aids. Clinton stated he is only wearing the left hearing aid at this time. brought in several hearing aids, the backup Resound was the only left aid that he wished to have maintenance done on at this time. Hearing aids: ReSound Linx3D BTE Serial Numbers: [id number] Battery size: 13 Date Issued: 11/05/2018 Hearing aid check: Left hearing aid was cleaned and checked. Replaced size 2 thin tube. Biologic check was intermittent and weak. The left Resound hearing aid will be sent to oriental medicine practitioner for repair and mailed directly to via [facility]. Advised to look for the Left Clarisse hearing aid today and call the clinic if he is unable to locate it. If is unable to locate the one-time replacement can be ordered at that time. Plan: Clinton will follow up as needed. /es/ OLIVE SÁNCHEZ Audiology Health Tennis Player Signed: 08/17/2023 10:22 /es/ BERNABE HYLTON, CCC-A STAFF HOURLY SHIFT MANAGER Cosigned: 08/17/2023 11:00 08/19/2023 ADDENDUM STATUS: COMPLETED Art came to window to discuss lost aid. He was under impression that the lost aid was canceled and that was why he didn't have it. Upon thorough review of notes, it appears that in 01/01 phone call he reported LEFT clarisse aid as lost but that on 01/16 at [facility]-he said it was the RIGHT clarisse aid. Art shows up to fish bait picker the L&D replacement and has the original right aid in his posession. It is likely that the LEFT aid, was indeed, the aid that was lost in 01/01. It is still under warranty for replacement and the L&D replacement is ordered this date. Art's left Resound BTE is also out for repair and we were going to mail that to him. Will call once both left repair and left L&D are back to see how he would like to receive these. /es/ DEXTER Jose, CCC-A CHIEF, AUDIOLOGY/SEPARATOR TENDER Signed: 08/19/2023 13:08 09/10/2023 ADDENDUM STATUS: COMPLETED Replacement left earing aid received and certified, placed in mail bin while waiting for earmold to arrive. /fay SÁNCHEZ Audiology Health Tennis Player Signed: 09/10/2023 09:55 /rosio/ DEXTER Jose, NORBERTO-A CHIEF, AUDIOLOGY/SEPARATOR TENDER Cosigned: 09/10/2023 11:29 09/16/2023 ADDENDUM STATUS: COMPLETED Aid and earmold received and certified. [facility] to contact to schedule 30 min HAC with mapping specialist for fish bait picker. /rosio/ DEXTER Jose, CCC-A CHIEF, AUDIOLOGY/SEPARATOR TENDER Signed: 09/16/2023 17:00 Receipt Acknowledged By: 09/17/2023 09:12 /fay TRAVIS LEAD SMALL STOCK FACER 09/17/2023 ADDENDUM STATUS: COMPLETED appointment has been scheduled for 09/24/23 1130am /fay TRAVIS LEAD SMALL STOCK FACER Signed: 09/17/2023 09:13 OLIVE SÁNCHEZ [facility]
--- OUTSIDE RECORDS SUMMARY | 2024-02-16 09:10 | XMS_ITS | Encounter Summary ---
Author Name [facility] [place] Address [address] [place] [address] Care Team Providers Care Mold Carrier Name Role Phone SUBHA REY Primary Care [...] Bryson's Name Patient's Relationship to Policy Bryson DAPHNEY PUGA-WN R [place] SPECIAL CLASS DAPHNEY DIOP Sep 15, 2011 DAPHNEY PUGA [id number] [phone] PAULA FENG PATIENT [facility] [place] [employer] [facility] [employer] [facility] Aug 09, 2017 [id number] PAULA FENG PATIENT [facility] [place] MEDIC[employer] [facility] [employer] [facility] SUPP PL Aug 09, 2017 [id number] PAULA FENG PATIENT MEDICARE (WNR) MEDICARE (M) PART A Nov 10, 2019 PART A [id number] PAULA FENG PATIENT MEDICARE (WNR) MEDICARE (M) PART B Apr 09, 2010 PART B [id number] PAULA FENG PATIENT MEDICARE (WNR) MEDICARE (M) PART B Apr 09, 2010 PART B [id number] PAULA FENG PATIENT MEDICARE (WNR) MEDICARE (M) PART B Apr 09, 2010 PART B [id number] PAULA FENG PATIENT MEDICARE (WNR) MEDICARE (M) PART A Nov 09, 2009 PART A [id number] PAULA FENG PATIENT MEDICARE (WNR) MEDICARE (M) PART A Nov 09, 2009 PART A [id number] PAULA FENG PATIENT Selected Encounter This section includes the information on record at [place] for the Encounter. Date/Time Encounter Type Encounter Description Reason Provider Source Aug 17, 2023 07:10 AM Outpatient Encounter PRIMARY CARE/MEDICINE MORGAN SAMUEL Encounter Template Text not used by [place] Plan of Treatment: Future Appointments (+ 6 months) and Future Tests (+/- 45 days) The Plan of Treatment section includes future care activities for the patient [facility] [place] [facility] This section includes future appointments and [...] 01, 2023 01:00 PM AMBULATORY - PSYCHIATRY [place] [facility] [place] [facility] Sep 08, 2023 01:00 PM AMBULATORY - PSYCHIATRY [place] [facility] [place] Sep 15, 2023 01:00 PM AMBULATORY - PSYCHIATRY [place] [facility] [place] Sep 22, 2023 01:00 PM AMBULATORY - PSYCHIATRY [place] [facility] Sep 24, 2023 09:00 AM AMBULATORY - MEDICINE [place] [facility] Sep 24, 2023 10:30 AM AMBULATORY - MEDICINE [facility] Sep 24, 2023 11:30 AM AMBULATORY - REHAB MEDICIN E [place] [facility] Sep 25, 2023 01:00 PM AMBULATORY - MEDICINE [facility] Sep 29, 2023 01:00 PM AMBULATORY - PSYCHIATRY [facility] Oct 13, 2023 08:00 AM AMBULATORY - MEDICINE [facility] [place] Oct 13, 2023 01:00 PM AMBULATORY - PSYCHIATRY [facility] Oct 14, 2023 08:00 AM AMBULATORY - MEDICINE [facility] [place] Oct 20, 2023 01:00 PM AMBULATORY - PSYCHIATRY [facility] [place] Oct 27, 2023 01:00 PM AMBULATORY - PSYCHIATRY [facility] Nov 03, 2023 01:00 PM AMBULATORY - PSYCHIATRY [facility] Nov 05, 2023 09:00 AM AMBULATORY - REHAB MEDICIN E [facility] [place] Nov 05, 2023 12:00 PM AMBULATORY - MEDICINE [place] [facility] Nov 10, 2023 01:00 PM AMBULATORY - PSYCHIATRY [facility] Nov 17, 2023 01:00 PM AMBULATORY - PSYCHIATRY [facility] Dec 01, 2023 01:00 PM AMBULATORY - PSYCHIATRY [place] [facility] Social History: Smoking Status (Most current) [...] 19, 2023 01:00 PM [facility]ACCO [facility] Tobacco Use History This section includes a history of the smoking, or tobacco-related health factors, that were collected on or before the date of the Encounter. The data comes from the [place] facility where the Encounter took place. Date/Time Smoking Status/Tobacco Use Comment F acility June 17, 2022 01:00 PM [facility] Jul 16, 2021 01:00 PM VA-TOBACCO NEVER USED [facility] [place] [facility] July 03, 2020 01:00 PM VA-TOBACCO NEVER USED [facility] [place] [facility] Jul 11, 2019 02:57 PM VA-TOBACCO NEVER USED [facility] [place] [facility] Jan 14, 2019 08:50 AM VA-TOBACCO NEVER USED [facility] [place] [facility] Mar 04, 2018 01:20 PM VA-TOBACCO NEVER USED [facility] [place] [facility] May 27, 2017 11:01 AM LIFETIME NON-TOBACCO USER [facility] [place] [facility] May 20, 2016 10:51 AM LIFETIME NON-TOBACCO USER [facility] [place] [facility] May 03, 2015 01:13 PM LIFETIME NON-TOBACCO USER [facility] Advance Directives: All historical and current Section Date Range: From patient's date of to the date document was created. This section includes ALL of a patient's completed or amended [place] Advance and Rescinded Directives. The entries below indicate that a directive exists for the patient, but an actual copy is not included with this document. The data comes from all [place] facilities. Date Advance Directives Provider Source Nov 08, 2019 ADVANCE DIRECTIVE MIGDALIA MILES [place] [facility] Apr 14, 2019 ADVANCE DIRECTIVE RAFAL BULLARD [place] [facility] Encounter Notes: All associated encounter notes This section contains the clinical notes associated to the Encounter. Date/Time Encounter Note(s) Provider Source Aug 21, 2023 01:37 PM ADDENDUM: LOCAL TITLE: Addendum STANDARD TITLE: ADDENDUM DATE OF NOTE: AUG 21, 2023@13:37:10 ENTRY DATE: AUG 21, 2023@13:37:11 AUTHOR: MORGAN SAMUEL EXP COSIGNER: URGENCY: STATUS: COMPLETED Defer to PACT Team /rosio/ MORGAN SAMUEL REGISTERED NURSE Signed: 08/21/2023 13:37 Receipt Acknowledged By: 08/21/2023 15:10 /es/ Champ Alexis, Health Ranch Manager PATIENT CARE COORDINATOR,PRIMARY CARE for ALANA RUBIO 08/21/2023 16:00 /es/ OLGAN CYR RN REGISTERED NURSE ========= --- Original Document --- 08/17/23 PRIMARY CARE SECURE MESSAGING: ------Original Message -------- Sent: 08/16/2023 03:10 PM ET From: PRASANTH FENG To: Stephanie REY _ PRIMARY CARE_[facility] Subject: General:Appointment 2023, 09[address] Katia Rey, September I will be seeing you for my yearly check-up. I will visit the lab on September 20 for my blood work up. Since our last meeting I've had a considerable amount of situations going on, of which I would like to speak to you. 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 December 08, 2023 I have another video call with [facility] in regards to the sleep equipment, hope that will help I've also got several questions in regards to the [employer] water contamination Neurological Effects situation. I've got an ongoing problem with my hearing aids, hope you can help me? Today, I am concerned if we can fit all this work into our given time frame? Thank you for your time in this matter, Prasanth Feng [address] [facility] [place] ------Original Message -------- Sent: 08/17/2023 08:10 AM ET From: MORGAN SAMUEL To: PRASANTH FENG Subject: General:Appointment 2023, 0900 Good morning, Do you see Audiology for your hearing aids? I will pass the rest of your information to your PCP. Respectfully, Morgan Samuel RN /rosio/ MORGAN SAMUEL REGISTERED NURSE Signed: 08/17/2023 08:10 Receipt Acknowledged By: 08/21/2023 13:19 /rosio/ SUBHA REY D.O. PHYSICIAN 08/21/2023 ADDENDUM STATUS: COMPLETED recommend he follow-up with respiratory for sleep apnea and make audiology apt. please give him info on [facility] navigator/consult can be placed to answer questions about daphney REY D.O. PHYSICIAN Signed: 08/21/2023 13:21 Receipt Acknowledged By: 08/21/2023 13:38 /rosio/ MORGAN SAMUEL REGISTERED NURSE MORGAN SAMUEL [place] [facility] Aug 21, 2023 01:20 PM ADDENDUM: LOCAL TITLE: Addendum STANDARD TITLE: ADDENDUM DATE OF NOTE: AUG 21, 2023@13:20:04 ENTRY DATE: AUG 21, 2023@13:20:05 AUTHOR: SUBHA REY EXP COSIGNER: URGENCY: STATUS: COMPLETED recommend he follow-up with respiratory for sleep apnea and make audiology apt. please give him info on [facility] navigator/consult can be placed to answer questions about daphney desai/ SUBHA REY D.O. PHYSICIAN Signed: 08/21/2023 13:21 Receipt Acknowledged By: 08/21/2023 13:38 /fay SAMUEL REGISTERED NURSE ========= --- Original Document --- 08/17/23 PRIMARY CARE SECURE MESSAGING: ------Original Message -------- Sent: 08/16/2023 03:10 PM ET From: PRASANTH FENG To: Stephanie REY _ PRIMARY CARE_[facility] Subject: General:Appointment 2023, [address] Katia Rey, September I will be seeing you for my yearly check-up. I will visit the lab on September 20 for my blood work up. Since our last meeting I've had a considerable amount of situations going on, of which I would like to speak to you. 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 December 08, 2023 I have another video call with [facility] in regards to the sleep equipment, hope that will help I've also got several questions in regards to the [employer] water contamination Neurological Effects situation. I've got an ongoing problem with my hearing aids, hope you can help me? Today, I am concerned if we can fit all this work into our given time frame? Thank you for your time in this matter, Prasanth Feng [address] [facility] [place] ------Original Message -------- Sent: 08/17/2023 08:10 AM ET From: MORGAN SAMUEL To: PRASANTH FENG Subject: General:Appointment 2023, 09 Good morning, Do you see Audiology for your hearing aids? I will pass the rest of your information to your PCP. Respectfully, Morgan Samuel RN /rosio/ MORGAN SAMUEL REGISTERED NURSE Signed: 08/17/2023 08:10 Receipt Acknowledged By: 08/21/2023 13:19 /rosio/ SUBHA REY D.O. PHYSICIAN 08/21/2023 ADDENDUM STATUS: COMPLETED Defer to PACT Team /rosio/ MORGAN SAMUEL REGISTERED NURSE Signed: 08/21/2023 13:37 Receipt Acknowledged By: * AWAITING SIGNATURE * ALANA RUBIO * AWAITING SIGNATURE * LOGAN CYR TINA [facility] Aug 17, 2023 07:10 AM PRIMARY CARE SECUR E MESSAGING: LOCAL TITLE: PRIMARY CARE SECURE MESSAGING STANDARD TITLE: PRIMARY CARE SECURE MESSAGING DATE OF NOTE: AUG 17, 2023@07:10 ENTRY DATE: AUG 17, 2023@08:10:32 AUTHOR: MORGAN SAMUEL EXP COSIGNER: URGENCY: STATUS: COMPLETED PRIMARY CARE SECURE MESSAGING Has ADDENDA ------Original Message -------- Sent: 08/16/2023 03:10 PM ET From: PRASANTH FENG To: Stephanie REY _ PRIMARY CARE_[facility] Subject: General:Appointment 2023, [address] Katia Rey, September I will be seeing you for my yearly check-up. I will visit the lab on September 20 for my blood work up. Since our last meeting I've had a considerable amount of situations going on, of which I would like to speak to you. 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 December 08, 2023 I have another video call with [facility] in regards to the sleep equipment, hope that will help I've also got several questions in regards to the [employer] water contamination Neurological Effects situation. I've got an ongoing problem with my hearing aids, hope you can help me? Today, I am concerned if we can fit all this work into our given time frame? Thank you for your time in this matter, Prasanth Feng [address] [facility] [place] ------Original Message -------- Sent: 08/17/2023 08:10 AM ET From: MORGAN SAMUEL To: PRASANTH FENG Subject: General:Appointment 2023, 0900 Good morning, Do you see Audiology for your hearing aids? I will pass the rest of your information to your PCP. Respectfully, Morgan Samuel RN /rosio/ MORGAN SAMUEL REGISTERED NURSE Signed: 08/17/2023 08:10 Receipt Acknowledged By: 08/21/2023 13:19 /rosio/ SUBHA REY D.O. PHYSICIAN 08/21/2023 ADDENDUM STATUS: COMPLETED recommend he follow-up with respiratory for sleep apnea and make audiology apt. please give him info on [facility] navigator/consult can be placed to answer questions about daphney pinto /rosio/ SUBHA REY D.O. PHYSICIAN Signed: 08/21/2023 13:21 Receipt Acknowledged By: 08/21/2023 13:38 /rosio/ MORGAN SAMUEL REGISTERED NURSE 08/21/2023 ADDENDUM STATUS: COMPLETED Defer to PACT Team /rosio/ MORGAN SAMUEL REGISTERED NURSE Signed: 08/21/2023 13:37 Receipt Acknowledged By: * AWAITING SIGNATURE * ALANA RUBIO * AWAITING SIGNATURE * LOGAN CYR [facility]
--- OUTSIDE RECORDS SUMMARY | 2024-02-16 09:10 | XMS_ITS | Encounter Summary ---
Author Name [facility] [place] Organization [place] Address [address] [place] [address] Care Team Providers Care Package Center Supervisor Name Role Phone SUBHA VELAZQUEZ Primary Care [...] Relationship to Policy Bryson GREGORY PUGA-WN R MD SPECIAL CLASS GREGORY DIOP Sep 15, 2011 GREGORY PUGA [id number] PAULA GONZALES PATIENT [place] MEDICARE [employer] Aug 09, 2017 [id number] PAULA GONZALES PATIENT [place] [employer] SUPP [address] Aug 09, 2017 [id number] [phone] PAULA GONZALES PATIENT MEDICARE (WNR) MEDICARE (M) PART A Nov 10, 2019 PART A [id number] PAULA GONZALES PATIENT MEDICARE (WNR) MEDICARE (M) PART B Apr 09, 2010 PART B [id number] PAULA GONZALES PATIENT MEDICARE (WNR) MEDICARE (M) PART B Apr 09, 2010 PART B [id number] PAULA GONZALES PATIENT MEDICARE (WNR) MEDICARE (M) PART B Apr 09, 2010 PART B [id number] [phone] PAULA GONZALES PATIENT MEDICARE (WNR) MEDICARE (M) PART A Nov 09, 2009 PART A [id number] PAULA GONZALES PATIENT MEDICARE (WNR) MEDICARE (M) PART A Nov 09, 2009 PART A [id number] PAULA GONZALES PATIENT Selected Encounter This section includes the information on record at [place] for the Encounter. Date/Time Encounter Type Encounter Description Reason Pro vider Source Jul 30, 2023 03:15 PM Outpatient Encounter PRIMARY CARE/MEDICINE IHE Encounter Template Text not used by MD Plan of Treatment: Future Appointments (+ 6 months) and Future Tests (+/- 45 days) The Plan of Treatment section includes future care activities for the patient [facility] [place] [facility] This section includes future appointments and future [...] 04, 2023 01:00 PM AMBULATORY - PSYCHIATRY [place] [facility] [place] [facility] Aug 11, 2023 09:00 AM AMBULATORY - MEDICINE MD C [facility] [place] [facility] Aug 11, 2023 01:00 PM AMBULATORY - PSYCHIATRY MD [facility] [place] [facility] Aug 17, 2023 10:00 AM AMBULATORY - REHAB MEDICIN E MD [facility] [place] [facility] Sep 01, 2023 01:00 PM AMBULATORY - PSYCHIATRY MD [facility] [place] [facility] Sep 08, 2023 01:00 PM AMBULATORY - PSYCHIATRY MD [facility] [place] [facility] Sep 15, 2023 01:00 PM AMBULATORY - PSYCHIATRY MD [facility] [place] [facility] Sep 22, 2023 01:00 PM AMBULATORY - PSYCHIATRY MD [facility] [place] [facility] Sep 24, 2023 09:00 AM AMBULATORY - MEDICINE VA [facility] [place] [facility] Sep 24, 2023 10:30 AM AMBULATORY - MEDICINE VA [facility] [place] [facility] Sep 24, 2023 11:30 AM AMBULATORY - REHAB MEDICIN E [facility] [place] [facility] Sep 25, 2023 01:00 PM AMBULATORY - MEDICINE VA [facility] [place] [facility] Sep 29, 2023 01:00 PM AMBULATORY - PSYCHIATRY [facility] [place] [facility] Oct 13, 2023 08:00 AM AMBULATORY - MEDICINE VA [facility] [place] [facility] Oct 13, 2023 01:00 PM AMBULATORY - PSYCHIATRY [facility] [place] [facility] Oct 14, 2023 08:00 AM AMBULATORY - MEDICINE VA [facility] [place] [facility] Oct 20, 2023 01:00 PM AMBULATORY - PSYCHIATRY [facility] [place] [facility] Oct 27, 2023 01:00 PM AMBULATORY - PSYCHIATRY [facility] [place] [facility] Nov 03, 2023 01:00 PM AMBULATORY - PSYCHIATRY [facility] [place] [facility] Nov 05, 2023 09:00 AM AMBULATORY - REHAB MEDICIN E [facility] [place] [facility] Social History: Smoking Status (Most [...] 19, 2023 01:00 PM VA-TOBACCO [facility]ED [facility] Tobacco Use History This section includes a history of the smoking, or tobacco-related health factors, that were collected on or before the date of the Encounter. The data comes from the [place] facility where the Encounter took place. Date/Time Smoking Status/Tobacco Use Comment F acility June 17, 2022 01:00 PM [facility] [place] [facility] Jul 16, 2021 01:00 PM VA-TOBACCO NEVER USED [facility] [place] [facility] July 03, 2020 01:00 PM VA-TOBACCO NEVER USED [facility] [place] [facility] Jul 11, 2019 02:57 PM VA-TOBACCO NEVER USED [facility] [place] [facility] Jan 14, 2019 08:50 AM VA-TOBACCO NEVER USED [facility] [place] [facility] Mar 04, 2018 01:20 PM VA-TOBACCO NEVER USED [facility] [place] [facility] May 27, 2017 11:01 AM LIFETIME NON-TOBACCO USER [facility] [place] [facility] May 20, 2016 10:51 AM LIFETIME NON-TOBACCO USER [facility] [place] [facility] May 03, 2015 01:13 PM LIFETIME NON-TOBACCO USER [facility] [place] [facility] Advance Directives: All historical and [...] DIRECTIVE MIGDALIA MILES MD [facility] [place] [facility] Apr 14, 2019 ADVANCE DIRECTIVE RAFAL BULLARD MD C [facility] [place] [facility] Encounter Notes: All associated encounter notes This section contains the clinical notes associated to the Encounter. Date/Time Encounter Note(s) Provider Source Jul 30, 2023 03:15 PM ADMINISTRATIVE NOTE: LOCAL TITLE: FAX/MAIL RECEIVED STANDARD TITLE: ADMINISTRATIVE NOTE DATE OF NOTE: JUL 30, 2023@15:15 ENTRY DATE: JUL 30, 2023@15:16:01 AUTHOR: MANUEL HERNANDEZ COSIGNER: URGENCY: STATUS: COMPLETED FAX/MAIL RECEIVED Has ADDENDA Document Received On: Jul Document Type: Other: urology referral Date of Service: Aug Facility and or Provider:Hong Hester MD Contact Information: fax [phone] ph: [phone] PCP of Record: SUBHA VELAZQUEZ Next visit with PCP: 08/04/2023 13:00 CWM/NO/VVC/MHC/TORMEY 09/24/2023 09:00 CWM/NO/PACT EIGHT 10/13/2023 08:00 COM CARE-DENTAL GENERAL 10/14/2023 08:00 COM CARE-DENTAL GENERAL 12/08/2023 09:00 NHM/CVT/SLEEP STDY/VACT/P Primary Care May keep copies of this document for up to 14 days and send the original for scanning. 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 Mir LUA [phone] /rosio/ MANUEL HERNANDEZ Registered Nurse Signed: 07/30/2023 15:42 Receipt Acknowledged By: 08/03/2023 08:46 /rosio/ ALANA RUBIO LPN License Practical Nurse 07/31/2023 09:09 /rosio/ MORGAN MCGRATH REGISTERED NURSE for LOGAN CYR 07/31/2023 ADDENDUM STATUS: COMPLETED CC consult held for signature /rosio/ MORGAN MCGRATH REGISTERED NURSE Signed: 07/31/2023 09:09 [facility]
--- OUTSIDE RECORDS SUMMARY | 2024-02-16 09:10 | XMS_ITS | Encounter Summary ---
Author Name [facility] [place] [facility] [place] Organization [facility] [place] Address [address] [place] [address] Care Team Providers Care Valve Machine Operator Name Role Phone SUBHA VELAZQUEZ Primary [...] GREGORY DIOP Sep 15, 2011 GREGORY PUGA [id number] [phone] PAULA FENG [facility] Aug 09, 2017 [id number] PAULA FENG [facility]IENT [facility]IC[facility] SUPPLEMEN [place] COUNTS INCLUDE 234 BEDS AT [facility] Aug 09, 2017 [id number] PAULA FENG PATIENT MEDICARE (WNR) MEDICARE (M) PART A Nov 10, 2019 PART A [id number] PAULA FENG PATIENT MEDICARE (WNR) MEDICARE (M) PART B Apr 09, 2010 PART B [id number] PAULA FENG PATIENT MEDICARE (WNR) MEDICARE (M) PART B Apr 09, 2010 PART B [id number] PAULA FENG PATIENT MEDICARE (WNR) MEDICARE (M) PART B Apr 09, 2010 PART B [id number] [phone] PAULA FENG PATIENT MEDICARE (WNR) MEDICARE (M) PART A Nov 09, 2009 PART A [id number] PAULA FENG PATIENT MEDICARE (WNR) MEDICARE (M) PART A Nov 09, 2009 PART A [id number] [phone] PAULA FENG PATIENT Selected Encounter This section includes the information on record at [place] for the Encounter. Date/Time Encounter Type Encounter Description Reason Provider Source Aug 11, 2023 01:00 PM PSYTX W PT 45 MINUTES [facility] - IND ICD-10-CM F43.10 Post-traumatic stress disorder, unspecified NATHAN KIRK Mikhail Encounter Template Text not used by [place] Assessments - Encounter Diagnoses This section includes the primary and secondary diagnoses documented for the Encounter. Date/Time Primary/Secondary Diagnosis Diagnosis Name Provider Source Aug 13, 2023 09:50 PM PRIMARY Post-traumatic stress disorder, unspecified [facility]ATHAN KIRK [facility] Plan of Treatment: Future Appointments (+ 6 months) and Future Tests (+/- 45 days) The Plan of Treatment section includes future care activities for the patient from all [place] treatmentfacilities. This section includes future appointments and future orders which are active, pending or scheduled. Future Appointments This section includes appointments that were scheduled to occur 6 months from the date of the Encounter, up to a maximum of 20 appointments. The data comes from all [place] treatment facilities. Appointment Date/Time Appointment Type Appointme nt Facility Name Aug 17, 2023 10:00 AM [facility] Sep 01, 2023 01:00 PM [facility] [place] [facility] Sep 08, 2023 01:00 PM [facility] Sep 15, 2023 01:00 PM [facility] [place] [facility] Sep 22, 2023 01:00 PM AMBULATORY - [facility]IATRY [facility] [place] [facility] Sep 24, 2023 09:00 AM AMBULATORY - MEDICINE [facility] [place] [facility] Sep 24, 2023 10:30 AM AMBULATORY - MEDICINE [facility] [place] [facility] Sep 24, 2023 11:30 AM AMBULATORY - REHAB MEDICIN E [facility] [place] [facility] Sep 25, 2023 01:00 PM AMBULATORY - MEDICINE [facility] [place] [facility] Sep 29, 2023 01:00 PM AMBULATORY - PS[facility]CHIATRY [facility] [place] [facility] Oct 13, 2023 08:00 AM AMBULATORY - MEDICINE [facility] [place] [facility] Oct 13, 2023 01:00 PM AMBULATORY - PS[facility]CHIATRY [facility] [place] [facility] Oct 14, 2023 08:00 AM AMBULATORY - MEDICINE [facility] [place] [facility] Oct 20, 2023 01:00 PM AMBULATORY - PS[facility]CHIATRY [facility] [place] [facility] Oct 27, 2023 01:00 PM AMBULATORY - PS[facility]CHIATRY [facility] [place] [facility] Nov 03, 2023 01:00 PM AMBULATORY - PS[facility]CHIATRY [facility] [place] [facility] Nov 05, 2023 09:00 AM AMBULATORY - REHAB MEDICIN E [facility] [place] [facility] Nov 05, 2023 12:00 PM AMBULATORY - MEDICINE [facility] [place] [facility] Nov 10, 2023 01:00 PM AMBULATORY - PS[facility]CHIATRY [facility] [place] [facility] Nov 17, 2023 01:00 PM AMBULATORY - PS[facility]CHIATRY [facility] [place] [facility] Social History: Smoking Status (Most current) [...] USED [facility] [place] [facility] Tobacco Use History This section includes a history of the smoking, or tobacco-related health factors, that were collected on or before the date of the Encounter. The data comes from the [place] facility where the Encounter took place. Date/Time Smoking Status/Tobacco Use Comment F acility June 17, 2022 01:00 PM VA-TOBACCO NEVER USED [facility] [place] [facility] Jul 16, 2021 01:00 PM VA-TOBACCO NEVER USED [facility] [place] [facility] July 03, 2020 01:00 PM VA-TOBACCO NEVER USED [facility] [place] [facility] Jul 11, 2019 02:57 PM VA-TOBACCO NEVER USED [facility] [place] [facility] Jan 14, 2019 08:50 AM VA-TOBACCO NEVER USED [facility] [place] [facility] Mar 04, 2018 01:20 PM VA-TOBACCO NEVER USED [facility] [place] [facility] May 27, 2017 11:01 AM LIFETIME NON-TOBACCO USER [facility] [place] [facility] May 20, 2016 10:51 AM LIFETIME NON-TOBACCO USER [facility] [place] [facility] May 03, 2015 01:13 PM LIFETIME NON-TOBACCO USER [place] [facility] [place] [facility] Advance Directives: All historical and current [...] DIRECTIVE MIGDALIA MILES [place] [facility] [place] [facility] Apr 14, 2019 ADVANCE DIRECTIVE RAFAL BULLARD [facility] Encounter Notes: All associated encounter notes This section contains the clinical notes associated to the Encounter. Date/Time Encounter Note(s) Provider Source Aug 11, 2023 01:12 PM MENTAL HEALTH DIAGNOSTIC STUDY NOTE: LOCAL TITLE: MENTAL HEALTH DIAGNOSTIC STUDY STANDARD TITLE: MENTAL HEALTH DIAGNOSTIC STUDY NOTE DATE OF NOTE: AUG 11, 2023@13:12 ENTRY DATE: AUG 11, 2023@13:12 AUTHOR: NATHAN KIRK EXP COSIGNER: URGENCY: STATUS: COMPLETED These assessments were completed by PRASANTH FENG via provider direct entry on 08/11/2023 1:11:11 PM. PTSD CHECKLIST (PCL-5) - WEEKLY Patient reported being bothered by the following over the past week: 1. Disturbing memories: A little bit 2. Disturbing dreams: Not at all 3. Re-experiencing events: Not at all 4. Cued distress: A little bit 5. Cued physical symptoms: Not at all 6. Avoiding internal reminders: Not at all 7. Avoiding external reminders: A little bit [...] PCL-5 Weekly Total Score (past 180 days): 08/11/2023 9 06/30/2023 10 05/19/2023 9 04/07/2023 3 /rosio/ NATHAN KIRK, Ph.D Clinical Psychologist Signed: 08/11/2023 15:09 NATHAN KIRK [place] [facility] [place] [facility] Aug 11, 2023 12:58 PM TELEHEALTH NOTE: LOCAL TITLE: [place] VIDEO CONNECT PSYCHOLOGY NOTE STANDARD TITLE: TELEHEALTH NOTE DATE OF NOTE: AUG 11, 2023@12:58 ENTRY DATE: AUG 11, 2023@12:58:06 AUTHOR: NATHAN KIRK EXP COSIGNER: URGENCY: STATUS: COMPLETED [place] Video Connect (VVC) Standard Documentation VVC Clinician Resources Only: E911 (Emergency Call Relay Center): [phone] [place] [employer] Crisis Line - 988 then press #1. [facility] Suicide Coordinator [phone], Ext. [phone]; Back-up Ext. [phone] [place] Police, [place] JOSHUA [phone] Introduction: Visit is being conducted by [place] [employer]. Rhododendron identified with 2 identifiers: [X] Full Name [ ] Date of [ ] VA ID Card [X] Visual Recognition Emergency Plan: Rhododendron confirmed and/or provided the following information in case of emergency or technology failure. PATIENT PHONE - PHONE NUMBER [CELLULAR] - Is patient phone number correct, if not, enter below: Rhododendron's phone number: PRASANTH FENG [address], [place], [address] Rhododendron's present location and address for appointment: [address] [place] [address]. [place] [address] 's emergency contact name and phone number: Layla Feng Rhododendron reported that location is private and safe: Yes Informed Consent: informed of the risks and benefits of Telehealth video care. Rhododendron has the right to refuse video services. If refuses video visit, a [id number] visit will be scheduled. Rhododendron verbalized consent for this video visit: Yes Rhododendron provided consent for any other persons present [...] court of law and presented to a blow torch burner), and DOD access for active-duty service members. Provided Suicide Prevention Hotline number, and other contact numbers as necessary. VISIT DURATION: 54 Minutes * needed additional time to address current issues DIAGNOSIS: PTSD VETERANS STATEMENT OF GOALS/CONCERNS: Reduce irritability, avoidance, work on current challenges (including medical issues, particularly, cancer diagnosis), relationship issues, increase. meaningful activities and remain connected with people he is close to. SESSION FOCUS: Session focused on 's anxiety related to medical challenges. He shared his concerns regarding increased white matter on his brain, stated that his C-PAP device is not working , and that he has been experiencing dizziness for a while. shared that he has had several MRIs and a number of evaluations, and still has no answers about the white matter on [his] brain. In addition, he stated that he has been feeling dizzy and wonders if he has vertigo or if the dizziness is related to something else. Rhododendron expressed spending a lot of time trying to get the medical answers he is searching for and is frustrated that it has been so difficult. Recommended write down his concerns and share them with his PCP. Rhododendron shared that he will send information to his PCP prior to their next appointment. The remainder of the session focused on family dynamics and challenges in his marital relationship. Will revisit next session. INTERVENTIONS: Psychotherapeutic Interventions: [...] PLAN FOR FOLLOW-UP: Next session planned for: 08/18/23 at 1:00pm /rosio/ NATHAN KIRK, Ph.D Clinical Psychologist Signed: 08/13/2023 21:51 NATHAN KIRK [facility]
--- OUTSIDE RECORDS SUMMARY | 2024-02-16 09:10 | XMS_ITS | Encounter Summary ---
Author Name [facility] [place] Organization [place] Address [address] [place] [address] Care Team Providers Care Director Of Recruiting Name Role Phone SUBHA VELAZQUEZ Primary Care [...] SPECIAL CLASS GREGORY DIOP Sep 15, 2011 GERGORY PUGA [id number] [phone] PAULA FENG PATIENT [facility] MEDIC[facility]PPLEMEN [facility] Aug 09, 2017 [id number] PAULA FENG PATIENT [facility] MEDIC[facility] SUPPLEMEN [facility] Aug 09, 2017 [id number] [phone] PAULA FENG PATIENT MEDICARE (WNR) MEDICARE (M) PART A Nov 10, 2019 PART A [id number] PAULA FENG PATIENT MEDICARE (WNR) MEDICARE (M) PART B Apr 09, 2010 PART B [id number] PAULA FENG PATIENT MEDICARE (WNR) MEDICARE (M) PART B Apr 09, 2010 PART B [id number] PAULA FENG PATIENT MEDICARE (WNR) MEDICARE (M) PART B Apr 09, 2010 PART B [id number] [phone] PAULA FENG PATIENT MEDICARE (WNR) MEDICARE (M) PART A Nov 09, 2009 PART A [id number] PAULA FENG PATIENT MEDICARE (WNR) MEDICARE (M) PART A Nov 09, 2009 PART A [id number] [phone] PAULA FENG PATIENT Selected Encounter This section includes the information on record at [place] for the Encounter. Date/Time Encounter Type Encounter Description Reason Provider Source Sep 01, 2023 01:00 PM PSYTX W PT 45 MINUTES [facility] - IND ICD-10-CM F43.10 Post-traumatic stress disorder, unspecified NATHAN KIRK Mikhail Encounter Template Text not used by [place] Assessments - Encounter Diagnoses This section includes the primary and secondary diagnoses documented for the Encounter. Date/Time Primary/Secondary Diagnosis Diagnosis Name Provider Source Sep 04, 2023 04:31 PM PRIMARY Post-traumatic stress disorder, unspecified [facility] Plan of Treatment: Future Appointments (+ [...] Appointment Type Appointme nt Facility Name Sep 08, 2023 01:00 PM AMBULATORY - PS[place]CHIATRY [place] [facility] [place] [facility] Sep 15, 2023 01:00 PM AMBULATORY - PSYCHIATRY [place] [facility] [place] [facility] Sep 22, 2023 01:00 PM AMBULATORY - PSYCHIATRY [place] [facility] [place] [facility] Sep 24, 2023 09:00 AM AMBULATORY - MEDICINE [place] [facility] [place] [facility] Sep 24, 2023 10:30 AM AMBULATORY [facility] MEDICINE [facility] [place] [facility] Sep 24, 2023 11:30 AM AMBULATORY - REHAB MEDICIN E [facility] [place] [facility] Sep 25, 2023 01:00 PM AMBULATORY - [...] AMBULATORY - PSYCHIATRY [facility] [place] [facility] Nov 03, 2023 01:00 PM AMBULATORY - PSYCHIATRY [facility] [place] [facility] Nov 05, 2023 09:00 AM AMBULATORY - REHAB MEDICIN E [facility] [place] [facility] Nov 05, 2023 12:00 PM AMBULATORY - MEDICINE [place] [facility] [place] [facility] Nov 10, 2023 01:00 PM AMBULATORY - PSYCHIATRY [facility] [place] [facility] Nov 17, 2023 01:00 PM AMBULATORY - PSYCHIATRY [facility] [place] [facility] Dec 01, 2023 01:00 PM AMBULATORY - PSYCHIATRY [facility] [place] [facility] Dec 08, 2023 09:00 AM AMBULATORY - MEDICINE [facility] [place] [facility] Lab Results: +/- [...] 2023 07:56 AM [facility] [place] [facility] BASIC METABOLIC PANEL (non-fasting) Specimen Type: SERUM No comment entered. Ordering Provider: SUBHA VELAZQUEZ Report Released Date/Time: May 21, 2023 03:02 PM Reporting Lab: [facility] [address] [facility] [address] Performing Lab: [address] [address] UREA NITROGEN 30 mg/dL H 7-25 GLUCOSE 93 mg/dL 65-100 SODIUM 139 mmol/L 135-145 POTASSIUM 4.3 mmol/L 3.5-5.0 CHLORIDE 106 mmol/L 100-110 CO2 26 meq/L 20-30 CREATININE, Serum 0.99 mg/dL 0.50-1.40 eGFR(CKD-EPI 2020) 77 mL/min >60 Sep 17, 2023 07:56 AM [facility] LIPID PANEL FASTING Specimen Type: SERUM No comment entered. Ordering Provider: SUBHA VELAZQUEZ Report Released Date/Time: May 21, 2023 03:02 PM Reporting Lab: [address] [address] Performing Lab: [address] [address] CHOLESTEROL 208 mg/dL H TRIGLYCERIDE 154 mg/dL [...] 19, 2023 01:00 PM VA-TOBACCO NEVER USED [facility] Tobacco Use History This section includes a history of the smoking, or tobacco-related health factors, that were collected on or before the date of the Encounter. The data comes from the [place] facility where the Encounter took place. Date/Time Smoking Status/Tobacco Use Comment Gisele villalobos June 17, 2022 01:00 PM VA-TOBACCO NEVER USED [place] [facility] [place] [facility] Jul 16, 2021 01:00 PM VA-TOBACCO NEVER [...] DIRECTIVE MIGDALIA MILES [place] [facility] [place] [facility] Apr 14, 2019 ADVANCE DIRECTIVE RAFAL BULLARD [place] C [facility] [place] [facility] Encounter Notes: All associated encounter notes This section contains the clinical notes associated to the Encounter. Date/Time Encounter Note(s) Provider Source Sep 01, 2023 01:14 PM MENTAL HEALTH DIAGNOSTIC STUDY NOTE: LOCAL TITLE: MENTAL HEALTH DIAGNOSTIC STUDY STANDARD TITLE: MENTAL HEALTH DIAGNOSTIC STUDY NOTE DATE OF NOTE: SEP 01, 2023@13:14:19 ENTRY DATE: SEP 01, 2023@13:14:19 AUTHOR: NATHAN KIRK COSIGNER: URGENCY: STATUS: COMPLETED These assessments were completed by PRASANTH FENG via provider direct entry on 09/01/2023 1:13:25 PM. PTSD CHECKLIST (PCL-5) - WEEKLY Patient reported being bothered by the following over the past week: 1. Disturbing memories: A little bit 2. Disturbing dreams: A little bit 3. Re-experiencing events: Not at all 4. Cued distress: A little bit 5. Cued physical symptoms: Not at all 6. Avoiding internal reminders: Not at all 7. Avoiding external reminders: Not at all 8. Trouble with recall: A little bit [...] A little bit PCL-5 total score = 7 This measure assesses an individual's perception of [...] PCL-5 Weekly Total Score (past 180 days): 09/01/2023 7 08/11/2023 9 06/30/2023 10 05/19/2023 9 04/07/2023 3 /rosio/ NATHAN KIRK, Ph.D Clinical Psychologist Signed: 09/01/2023 21:52 NATHAN KIRK [place] [facility] [place] [facility] Sep 01, 2023 01:04 PM TELEHEALTH NOTE: LOCAL TITLE: [place] VIDEO CONNECT PSYCHOLOGY NOTE STANDARD TITLE: TELEHEALTH NOTE DATE OF NOTE: SEP 01, 2023@13:04 ENTRY DATE: SEP 01, 2023@13:04:19 AUTHOR: NATHAN KIRK EXP COSIGNER: URGENCY: STATUS: COMPLETED [place] VIDEO CONNECT PSYCHOLOGY NOTE Has ADDENDA VA Video Connect (VVC) Standard Documentation VVC Clinician Resources Only: E911 (Emergency Call Relay Center): [phone] [facility] Crisis Line - 988 then press #1. [place] Suicide Coordinator [phone], Ext. [phone]; Back-up Ext. [phone] [place] Police, [place] JOSHUA [phone] Introduction: Visit is being conducted by [place] Tomo Clases. Blakeslee identified with 2 identifiers: [X] Full Name [ ] Date of [ ] VA ID Card [X] Visual Recognition Emergency Plan: confirmed and/or provided the following information in case of emergency or technology failure. PATIENT PHONE - PHONE NUMBER [CELLULAR] - Is patient phone number correct, if not, enter below: Blakeslee's phone number: PRASANTH FENG [address], [place], [address] 's present location and address for appointment: [address] [place] [address]. [place] [address] 's emergency contact name and phone number: Layla Feng Blakeslee reported that location is private and safe: Yes Informed Consent: Blakeslee informed of the risks and benefits of Telehealth video care. has the right to refuse video services. If refuses video visit, a [id number] visit will be scheduled. verbalized consent for this video visit: Yes Blakeslee provided consent for any other persons present [...] court of law and presented to a power generation turbine room operator), and DOD access for active-duty service members. Provided Suicide Prevention Hotline number, and other contact numbers as necessary. VISIT DURATION: 42 Minutes DIAGNOSIS: PTSD VETERANS STATEMENT OF GOALS/CONCERNS: Reduce irritability, avoidance, work on current challenges (including medical issues, particularly, cancer diagnosis), relationship issues, increase. meaningful activities and remain connected with people he is close to. SESSION FOCUS: Session focused on 's anxiety regarding medical issues, and frustration around meeting claim deadlines for toxic exposures from [employer]. Art shared that he already filed a claim for [employer], which was approved, however, he plans to file a second one in the near future. He expressed spending a great deal of time working on medical claims, stating that it is exhausting. Revisited the idea of making changes to find balance in his life. Art stated that he accomplished goals from previous sessions which included engaging in meaningful activities, including going for rides and having dinner with his . expressed that it felt good to do something fun , and get away from work. The remainder of the session focused on exploring other things Blakeslee would like to do, in order to have more balance, and quality of life. Blakeslee shared that he would like to spend more time with his adult children, enjoy the outdoors when weather permits, spend time at his cabin in [place], and go out to dinner with friends. Blakeslee shared that he will continue to incorporate social activities into his routine. INTERVENTIONS: Psychotherapeutic Interventions: Explored goals around engaging in meaningful activities, Limit news and triggering television programs, Increase [...] PLAN FOR FOLLOW-UP: Next session planned for: 09/08/23 at 1:00pm /fay KIRK, Ph.D Clinical Psychologist Signed: 09/04/2023 16:31 09/04/2023 ADDENDUM STATUS: COMPLETED Blakeslee completed and reviewed the PCL-5 (Score: 7) during session. /fay KIRK, Ph.D Clinical Psychologist Signed: 09/04/2023 16:32 NATHAN KIRK [place] [facility]
--- OUTSIDE RECORDS SUMMARY | 2024-02-16 09:11 | XMS_ITS | Encounter Summary ---
Author Name [facility] [place] [place] [facility] [place] [facility] [place] [facility] [place] Address [address] [place] [address] Care Team Providers Care Can Intake Worker Name Role Phone SUBHA VELAZQUEZ Primary Care [...] Relationship to Policy Bryson GREGORY PUGA-WN R [place] SPECIAL CLASS GREGORY DIOP Sep 15, 2011 GREGORY PUGA [id number] PAULA GONZALES PATIENT [facility] [place] MEDICARE SUPPLEMEN [facility] Aug 09, 2017 [id number] [phone] PAULA GONZALES PATIENT [facility] [place] MEDICARE SUPPLEMEN [facility] SUPP PL Aug 09, 2017 [id number] PAULA GONZALES PATIENT MEDICARE (WNR) MEDICARE (M) PART A Nov 10, 2019 PART A [id number] [phone] [id number] PAULA GONZALES PATIENT MEDICARE (WNR) MEDICARE (M) PART B Apr 09, 2010 PART B [id number] PAULA GONZALES PATIENT MEDICARE (WNR) MEDICARE (M) PART B Apr 09, 2010 PART B [id number] PAULA GONZALES PATIENT MEDICARE (WNR) MEDICARE (M) PART B Apr 09, 2010 PART B [id number] [phone] PAULA GONZALES PATIENT MEDICARE (WNR) MEDICARE (M) PART A Nov 09, 2009 PART A [id number] PAULA GONZALES PATIENT MEDICARE (WNR) MEDICARE (M) PART A Nov 09, 2009 PART A [id number] PAULA GONZALES PATIENT Selected Encounter This section includes the information on record at [place] for the Encounter. Date/Time Encounter Type Encounter Description Reason Pro vider Source Sep 10, 2023 02:05 PM Outpatient Encounter PRIMARY CARE/MEDICINE IHE Encounter Template Text not used by [place] Plan of Treatment: Future Appointments (+ 6 months) and Future Tests (+/- 45 days) The Plan of Treatment section includes future care activities for the patient from all [place] [facility]. This section includes future appointments and future orders which are active, pending or scheduled. Future Appointments This section includes appointments that were scheduled to occur 6 months from the date of the Encounter, up to a maximum of 20 appointments. The data comes from all [place] treatment facilities. Appointment Date/Time Appointment Type Appointme nt Facility Name Sep 15, 2023 01:00 PM AMBULATORY - PSYCHIATRY [place] [facility] [place] [facility] Sep 22, 2023 01:00 PM AMBULATORY - PSYCHIATRY [place] [facility] [place] [facility] Sep 24, 2023 09:00 AM AMBULATORY - MEDICINE [facility] [place] [facility] Sep 24, 2023 10:30 AM AMBULATORY - MEDICINE [facility] [place] [facility] Sep 24, 2023 11:30 AM AMBULATORY - REHAB MEDICIN E [place] [facility] [place] [facility] Sep 25, 2023 01:00 PM AMBULATORY - MEDICINE [place] C [facility] [place] [facility] Sep 29, 2023 01:00 PM AMBULATORY - PSYCHIATRY [place] [facility] [place] [facility] Oct 13, 2023 08:00 AM AMBULATORY - MEDICINE [facility] [place] [facility] Oct 13, 2023 01:00 PM AMBULATORY [...] PSYCHIATRY [facility] [place] [facility] Nov 05, 2023 09:00 AM AMBULATORY - [facility]AB [facility]ICIN [facility] [place] [facility] Nov 05, 2023 12:00 PM AMBULATORY - MEDICINE [facility] [place] [facility] Nov 10, 2023 01:00 PM AMBULATORY - PSYCHIATRY [facility] [place] [facility] Nov 17, 2023 01:00 PM AMBULATORY - PSYCHIATRY [facility] [place] [facility] Dec 01, 2023 01:00 PM AMBULATORY - PSYCHIATRY [facility] [place] [facility] Dec 08, 2023 09:00 AM AMBULATORY - MEDICINE [facility] [place] [facility] Dec 08, 2023 09:01 AM AMBULATORY - MEDICINE [facility] Lab Results: +/- 30 days of [...] Range Comment Sep 17, 2023 07:56 AM [place] [facility] [place] [facility] LIPID PANEL FASTING Specimen Type: SERUM No comment entered. Ordering Provider: SUBHA VELAZQUEZ Report Released Date/Time: May 21, 2023 03:02 PM Reporting [facility] [place] [facility] [address] [facility] [address] Performing Lab: [facility] [address] [address] CHOLESTEROL 208 mg/dL H TRIGLYCERIDE 154 mg/dL H 0-150 LDL calculated 139 mg/dL H 0-129 CHOL/HDL 5.5 HDL CHOLESTEROL 38 mg/dL L 40-60 Sep 17, 2023 07:56 AM [facility] BASIC METABOLIC PANEL (non-fasting) Specimen Type: SERUM No comment entered. Ordering Provider: SUBHA VELAZQUEZ Report Released Date/Time: May 21, 2023 03:02 PM Reporting Lab: [facility] [address] [facility] [facility] [address] Performing Lab: [facility] [address] [facility] [address] UREA NITROGEN 30 mg/dL H 7-25 GLUCOSE [...] and tobacco- related health factors from the [place] facility where the Encounter took place. Current Smoking Status This section includes the most current smoking, or tobacco-related health factor, from the [place] facility where the Encounter took place. Date/Time Current Smoking Status Comment Louisa koenig May 19, 2023 01:00 PM VA-TOBACCO NEVER USED [facility] Tobacco Use History This section includes a history of the smoking, or tobacco-related health factors, that were collected on or before the date of the Encounter. The data comes from the [place] facility where the Encounter took place. Date/Time Smoking Status/Tobacco Use Comment Gisele villalobos June 17, 2022 01:00 PM VA-TOBACCO NEVER USED [place] [facility] [place] [facility] Jul 16, 2021 01:00 PM VA-TOBACCO NEVER USED [facility] [place] [facility] July 03, 2020 01:00 PM VA-TOBACCO NEVER USED [facility] [place] [facility] Jul 11, 2019 02:57 PM VA-TOBACCO NEVER USED [place] [facility] [place] [facility] Jan 14, 2019 08:50 AM VA-TOBACCO NEVER USED [place] [facility] [place] [facility] Mar 04, 2018 01:20 PM VA-TOBACCO NEVER USED [place] [facility] [place] [facility] May 27, 2017 11:01 AM LIFETIME NON-TOBACCO USER [place] [facility] [place] [facility] May 20, 2016 10:51 AM LIFETIME NON-TOBACCO USER [place] [facility] [place] [facility] May 03, 2015 01:13 PM LIFETIME NON-TOBACCO USER [facility] Advance Directives: All historical and current Section Date Range: From patient's date of to the date document was created. This section includes ALL of a patient's completed or amended [place] Advance and Rescinded Directives. The entries below indicate that a directive exists for the patient, but an actual copy is not included with this document. The data comes from all [place] facilities. Date Advance Directives Provider Source Nov 08, 2019 ADVANCE DIRECTIVE MIGDALIA MILES [place] [facility] Apr 14, 2019 ADVANCE DIRECTIVE RAFAL BULLARD [facility] Encounter Notes: All associated encounter notes This section contains the clinical notes associated to the Encounter. Date/Time Encounter Note(s) Provider Source Sep 10, 2023 02:05 PM ADMINISTRATIVE NOTE: LOCAL TITLE: ADMINISTRATIVE NOTE STANDARD TITLE: ADMINISTRATIVE NOTE DATE OF NOTE: SEP 10, 2023@14:05 ENTRY DATE: SEP 10, 2023@14:05:43 AUTHOR: RICA MORILLO EXP COSIGNER: URGENCY: STATUS: COMPLETED AMSA SPOKE TO ON THE TELEPHONE AND INFORMED HIM OF UPCOMING APPT AND THAT LABWORK IS NEEDED. /rosio/ RICA MORILLO AMSA Signed: 09/10/2023 14:16 RICA MORILLO [facility]
--- OUTSIDE RECORDS SUMMARY | 2024-02-16 09:11 | XMS_ITS | Encounter Summary ---
Author Name [facility] [place] [facility] [place] [facility] [place] Address [address] [place] [address] Care Team Providers Care Park Interpretive Ranger Name Role Phone SUBHA VELAZQUEZ Primary Care [...] GREGORY DIOP Sep 15, 2011 GREGORY PUGA [id number] [phone] PAULA GONZALES PATIENT [facility] [place] MEDICARE SUPPLEMEN [employer] Aug 09, 2017 [id number] PAULA GONZALES PATIENT [facility] [place] MEDIC[facility] SUPPLEMEN [facility] SUPP PL Aug 09, 2017 [id number] [phone] PAULA GONZALES PATIENT MEDICARE (WNR) MEDICARE (M) PART A Nov 10, 2019 PART A [id number] PAULA GONZALES PATIENT MEDICARE (WNR) MEDICARE (M) PART B Apr 09, 2010 PART B [id number] PAULA GONZALES PATIENT MEDICARE (WNR) MEDICARE (M) PART B Apr 09, 2010 PART B [id number] PAULA GONZALES PATIENT MEDICARE (WNR) MEDICARE (M) PART B Apr 09, 2010 PART B [id number] PAULA GONZALES PATIENT MEDICARE (WNR) MEDICARE (M) PART A Nov 09, 2009 PART A [id number] PAULA GONZALES PATIENT MEDICARE (WNR) MEDICARE (M) PART A Nov 09, 2009 PART A [id number] PAULA GONZALES PATIENT Selected Encounter This section includes the information on record at [place] for the Encounter. Date/Time Encounter Type Encounter Description Reason Provider Source Sep 24, 2023 10:30 AM EXT ECG>7D<15D RECORDING AMB ECG MONITORING ICD-10-CM R55 Syncope and collapse SATYA KOHLER [facility] Encounter Template Text not used by [place] Assessments - Encounter Diagnoses This section includes the primary and secondary diagnoses documented for the Encounter. Date/Time Primary/Secondary Diagnosis Diagnosis Name Provider Source Oct 16, 2023 08:12 AM PRIMARY Syncope and collapse SATYA KOHLER [facility] [place] [facility] Plan of Treatment: Future Appointments (+ [...] Appointment Type Appointme nt Facility Name Sep 25, 2023 01:00 PM AMBULATORY - MEDICINE [facility] [place] [facility] Sep 29, 2023 01:00 PM AMBULATORY - PSYCHIATRY [place] [facility] [place] [facility] Oct 13, 2023 08:00 AM AMBULATORY - MEDICINE [facility] [place] [facility] Oct 13, 2023 01:00 PM AMBULATORY - PSYCHIATRY [place] [facility] [place] [facility] Oct 14, 2023 08:00 AM [...] AMBULATORY - PSYCHIATRY [place] [facility] [place] [facility] Dec 01, 2023 01:00 PM AMBULATORY - PSYCHIATRY [place] [facility] [place] [facility] Dec 08, 2023 09:00 AM AMBULATORY - MEDICINE [place] [facility] [place] [facility] Dec 08, 2023 09:01 AM AM[place]UL[place]ORY [place]IC[place] [facility] Dec 08, 2023 01:00 PM AMBULATORY - PSYCHIATRY [place] [facility] [place] [facility] Dec 15, 2023 09:00 AM AMBULATORY - NONE [place] [facility] [facility] Dec 15, 2023 01:00 PM AMBULATORY - PSYCHIATRY [place] [facility] [facility] Dec 29, 2023 04:00 PM AMBULATORY - PSYCHIATRY [place] [facility] [facility] Jan 05, 2024 04:00 PM AMBULATORY - PSYCHIATRY [place] [facility] [place] [facility] Lab Results: +/- 30 days of [...] 2023 07:56 AM [place] [facility] [facility] LIPID PANEL FASTING Specimen Type: SERUM No comment entered. Ordering Provider: SUBHA VELAZQUEZ Report Released Date/Time: May 21, 2023 03:02 PM Reporting Lab: [facility] [address] [facility] [address] Performing Lab: [address] [address] CHOLESTEROL 208 mg/dL H TRIGLYCERIDE 154 mg/dL H 0-150 LDL calculated 139 mg/dL H 0-129 CHOL/HDL 5.5 HDL CHOLESTEROL 38 mg/dL L 40-60 Sep 17, 2023 07:56 AM [facility] BASIC METABOLIC PANEL (non-fasting) Specimen Type: SERUM No comment entered. Ordering Provider: SUBHA VELAZQUEZ Report Released Date/Time: May 21, 2023 03:02 PM Reporting Lab: [facility] [address] [facility] [address] Performing Lab: [address] [address] UREA NITROGEN 30 mg/dL H 7-25 GLUCOSE 93 mg/dL 65-100 SODIUM 139 mmol/L 135-145 POTASSIUM 4.3 mmol/L 3.5-5.0 CHLORIDE 106 mmol/L 100-110 CO2 26 meq/L 20-30 CREATININE, Serum 0.99 mg/dL 0.50-1.40 eGFR(CKD-EPI 2020) 77 mL/min >60 Vital Signs: All taken on the encounter date This section contains inpatient and outpatient Vital Signs collected on the date of the Encounter. Date/Time Temperature Pulse Blood Pressure Respiratory Rate SP02 Pain Height Weight Body Mass Index Source Sep 24, 2023 08:55 AM 97.3 68 119/79 16 96 2 233 33 [facility] Social History: Smoking Status (Most current) [...] 19, 2023 01:00 PM VA-TOBACCO NEVER USED [facility] Tobacco Use History This section includes a history of the smoking, or tobacco-related health factors, that were collected on or before the date of the Encounter. The data comes from the [place] facility where the Encounter took place. Date/Time Smoking Status/Tobacco Use Comment F griselda June 17, 2022 01:00 PM VA-TOBACCO NEVER USED [place] [facility] [place] [facility] Jul 16, 2021 01:00 PM VA-TOBACCO NEVER USED [place] [facility] [place] [facility] July 03, 2020 01:00 PM VA-TOBACCO NEVER USED [place] [facility] [place] [facility] Jul 11, 2019 02:57 PM VA-TOBACCO NEVER USED [place] [facility] [place] [facility] Jan 14, 2019 08:50 AM VA-TOBACCO NEVER USED [place] [facility] [place] [facility] Mar 04, 2018 01:20 PM VA-TOBACCO NEVER USED [place] [facility] [place] [facility] May 27, 2017 11:01 AM LIFETIME NON-TOBACCO USER [place] [facility] [place] [facility] May 20, 2016 10:51 AM LIFETIME NON-TOBACCO USER [place] [facility] [place] [facility] May 03, 2015 01:13 PM LIFETIME NON-TOBACCO USER [place] [facility] [place] [facility] Advance Directives: All historical and [...] DIRECTIVE MIGDALIA MILES IN [facility] [place] [facility] Apr 14, 2019 ADVANCE DIRECTIVE RAFAL BULLARD IN C NTRL [facility] [place] [facility] Encounter Notes: All associated encounter notes This section contains the clinical notes associated to the Encounter. Date/Time Encounter Note(s) Provider Source Sep 24, 2023 11:02 AM CARDIOLOGY CONSULT : LOCAL TITLE: CONSULT REPORT/AMBULATORY ARRHYTHMIA MONITOR STANDARD TITLE: CARDIOLOGY CONSULT DATE OF NOTE: SEP 24, 2023@11:02 ENTRY DATE: SEP 24, 2023@11:02:19 AUTHOR: SATYA KOHLER EXP COSIGNER: URGENCY: STATUS: COMPLETED Diagnoses: Syncope and collapse(ICD-10-CM R55.) Zio patch applied on Sep. After reviewing consult indications, a 14 day ZioPatch XT was applied to . Education was provided on its use and how to press the event button if symptomatic. The was provided written instructions, contact phone numbers, and a postage-paid battery mechanic box to return the equipment. Serial Number: [id number] /rosio/ Satya Kohler LPN Licensed Practical Nurse Signed: 09/24/2023 11:06 SATYA KOHLER [place] [facility]
--- OUTSIDE RECORDS SUMMARY | 2024-02-16 09:11 | XMS_ITS | Encounter Summary ---
Author Name [facility] [place] [facility] [place] Organization [facility] [place] Address [address] [place] [address] Care Team Providers Care Meteorological Observer Name Role Phone SUBHA VELAZQUEZ Primary Care [...] Relationship to Policy Bryson GREGORY PUGA-WN R [place] SPECIAL CLASS GREGORY DIOP Sep 15, 2011 GREGORY PUGA [id number] [phone] PAULA GONZALES [facility] MEDIC[facility] SUPPLEMEN [facility] Aug 09, 2017 [id number] [phone] PAULA GONZALES [facility] [place] MEDIC[facility] SUPPLEMEN [facility] Aug 09, 2017 [id number] PAULA GONZALES PATIENT MEDICARE (WNR) MEDICARE (M) PART A Nov 10, 2019 PART A [id number] PAULA GONZALES PATIENT MEDICARE (WNR) MEDICARE (M) PART B Apr 09, 2010 PART B [id number] PAULA GONZALES PATIENT MEDICARE (WNR) MEDICARE (M) PART B Apr 09, 2010 PART B [id number] PAULA GONZALES PATIENT MEDICARE (WNR) MEDICARE (M) PART B Apr 09, 2010 PART B [id number] [phone] PAULA GONZALES PATIENT MEDICARE (WNR) MEDICARE (M) PART A Nov 09, 2009 PART A [id number] PAULA GONZALES PATIENT MEDICARE (WNR) MEDICARE (M) PART A Nov 09, 2009 PART A [id number] PAULA GONZALES PATIENT Selected Encounter This section includes the information on record at [place] for the Encounter. Date/Time Encounter Type Encounter Description Reason Provider Source Sep 15, 2023 01:00 PM PSYTX W PT 45 MINUTES [facility] - IND ICD-10-CM F43.10 Post-traumatic stress disorder, unspecified NATHAN KIRK Mikhail Encounter Template Text not used by [place] Assessments - Encounter Diagnoses This section includes the primary and secondary diagnoses documented for the Encounter. Date/Time Primary/Secondary Diagnosis Diagnosis Name Provider Source Sep 17, 2023 12:16 PM PRIMARY Post-traumatic stress disorder, unspecified NATHAN KIRK [facility] Plan of Treatment: Future Appointments (+ 6 months) and Future Tests (+/- 45 days) The Plan of Treatment section includes future care activities for the patient from all [place] treatmentfacilities. This section includes future appointments and future orders which are active, pending or scheduled. Future Appointments This section includes appointments that were scheduled to occur 6 months from the date of the Encounter, up to a maximum of 20 appointments. The data comes from all [place] treatment facilities. Appointment Date/Time Appointment Type Appointme nt Facility Name Sep 22, 2023 01:00 PM AMBULATORY - PSYCHIATRY [place] [facility] [place] [facility] Sep 24, 2023 09:00 AM AMBULATORY - MEDICINE [facility] [place] [facility] Sep 24, 2023 10:30 AM AMBULATORY - MEDICINE [facility] [place] [facility] Sep 24, 2023 11:30 AM AMBULATORY - REHAB MEDICIN E [facility] [place] [facility] Sep 25, 2023 01:00 PM AMBULATORY - MEDICINE [facility] [place] [place] [facility] Sep 29, 2023 01:00 PM AMBULATORY - PSYCHIATRY [facility] [place] [place] [facility] Oct 13, 2023 08:00 AM AMBULATORY - MEDICINE [facility] [place] [facility] Oct 13, 2023 01:00 PM AMBULATORY - PSYCHIATRY [facility] [place] [facility] Oct 14, 2023 08:00 AM AMBULATORY - MEDICINE [facility] [place] [facility] Oct 20, 2023 01:00 PM AMBULATORY - PSYCHIATRY [facility] [place] [facility] Oct 27, 2023 01:00 PM AMBULATORY - PSYCHIATRY [facility] [place] [facility] Nov 03, 2023 01:00 PM AMBULATORY - PSYCHIATRY [facility] [place] [place] [facility] Nov 05, 2023 09:00 AM AMBULATORY - REHAB MEDICIN E [facility] [place] [facility] Nov 05, 2023 12:00 PM AMBULATORY - MEDICINE [facility] C [facility] [place] [facility] Nov 10, 2023 01:00 PM AMBULATORY - PSYCHIATRY [facility] [place] [facility] Nov 17, 2023 01:00 PM AMBULATORY - PSYCHIATRY [facility] [place] [facility] Dec 01, 2023 01:00 PM AMBULATORY - PSYCHIATRY [facility] [place] [facility] Dec 08, 2023 09:00 AM AMBULATORY - MEDICINE [facility] [place] [facility] Dec 08, 2023 09:01 AM AM[place]UL[place]ORY - [place]ICINE [place] [facility] Dec 08, 2023 01:00 PM AMBULATORY - PSYCHIATRY [facility] [place] [place] [facility] Lab Results: +/- 30 days of [...] 2023 07:56 AM [facility] [place] [facility] BASIC METABOLIC PANEL (non-fasting) Specimen Type: SERUM No comment entered. Ordering Provider: SUBHA VELAZQUEZ Report Released Date/Time: May 21, 2023 03:02 PM Reporting Lab: [facility] [address] [facility] [address] Performing Lab: [address] [address] UREA NITROGEN 30 mg/dL H 7-25 GLUCOSE 93 mg/dL 65-100 SODIUM 139 mmol/L 135-145 POTASSIUM 4.3 mmol/L 3.5-5.0 CHLORIDE 106 mmol/L 100-110 CO2 26 meq/L 20-30 CREATININE, Serum 0.99 mg/dL 0.50-1.40 eGFR(CKD-EPI 2020) 77 mL/min >60 Sep 17, 2023 07:56 AM [facility] LIPID PANEL FASTING Specimen Type: SERUM No comment entered. Ordering Provider: SUBHA VELAZQUEZ Report Released Date/Time: May 21, 2023 03:02 PM Reporting Lab: [address] [address] Performing Lab: [address] [address] CHOLESTEROL 208 mg/dL H TRIGLYCERIDE 154 mg/dL H 0-150 LDL calculated 139 mg/dL H 0-129 CHOL/HDL 5.5 HDL CHOLESTEROL 38 mg/dL L 40-60 Social History: Smoking Status (Most current) and Tobacco Use (All prior to encounter date) This section includes the most current, and the historical, smoking and tobacco- related health factors from the [place] facility where the Encounter took place. Current Smoking Status This section includes the most current smoking, or tobacco-related health factor, from the [place] facility where the Encounter took place. Date/Time Current Smoking Status Comment Louisa koenig May 19, 2023 01:00 PM VA-TOBACCO NEVER USED [facility] Tobacco Use History This section includes a history of the smoking, or tobacco-related health factors, that were collected on or before the date of the Encounter. The data comes from the [place] facility where the Encounter took place. Date/Time Smoking Status/Tobacco Use Comment Gisele villalobos June 17, 2022 01:00 PM VA-TOBACCO NEVER USED [facility] [place] [facility] Jul 16, 2021 01:00 PM VA-TOBACCO NEVER USED [facility] [place] [facility] July 03, 2020 01:00 PM VA-TOBACCO NEVER USED [facility] [place] [facility] Jul 11, 2019 02:57 PM VA-TOBACCO NEVER USED VA [facility] [place] [facility] Jan 14, 2019 08:50 AM VA-TOBACCO NEVER USED VA [facility] [place] [facility] Mar 04, 2018 01:20 PM VA-TOBACCO NEVER USED VA [facility] [place] [facility] May 27, 2017 11:01 AM LIFETIME NON-TOBACCO USER [facility] [facility] May 20, 2016 10:51 AM LIFETIME NON-TOBACCO USER [facility] [place] [facility] May 03, 2015 01:13 PM LIFETIME NON-TOBACCO USER [facility] [place] [facility] Advance Directives: All historical and current Section Date Range: From patient's date of to the date document was created. This section includes ALL of a patient's completed or amended [place] Advance and Rescinded Directives. The entries below indicate that a directive exists for the patient, but an actual copy is not included with this document. The data comes from all [place] facilities. Date Advance Directives Provider Source Nov 08, 2019 ADVANCE DIRECTIVE MIGDALIA MILES [facility] [facility] Apr 14, 2019 ADVANCE DIRECTIVE RAFAL BULLARD AR C [facility] [place] [facility] Encounter Notes: All associated encounter notes This section contains the clinical notes associated to the Encounter. Date/Time Encounter Note(s) Provider Source Sep 15, 2023 01:09 PM MENTAL HEALTH DIAG NOSTIC STUDY NOTE: LOCAL TITLE: MENTAL HEALTH DIAGNOSTIC STUDY STANDARD TITLE: MENTAL HEALTH DIAGNOSTIC STUDY NOTE DATE OF NOTE: SEP 15, 2023@13:09:56 ENTRY DATE: SEP 15, 2023@13:09:56 AUTHOR: NATHAN KIRK COSIGNER: URGENCY: STATUS: COMPLETED These assessments were completed by PRASANTH GONZALES via provider direct entry on 09/15/2023 1:09:12 PM. PTSD CHECKLIST (PCL-5) - WEEKLY Patient [...] A little bit PCL-5 total score = 4 This measure assesses an individual's perception of [...] PCL-5 Weekly Total Score (past 180 days): 09/15/2023 4 09/01/2023 7 08/11/2023 9 06/30/2023 10 05/19/2023 9 04/07/2023 3 /rosio/ NATHAN KIRK, Ph.D Clinical Psychologist Signed: 09/16/2023 08:23 NATHAN KIRK [facility] [place] [facility] Sep 15, 2023 01:01 PM TELEHEALTH NOTE: LOCAL TITLE: AR VIDEO CONNECT PSYCHOLOGY NOTE STANDARD TITLE: TELEHEALTH NOTE DATE OF NOTE: SEP 15, 2023@13:01 ENTRY DATE: SEP 15, 2023@13:01:31 AUTHOR: NATHAN KIRK EXP COSIGNER: URGENCY: STATUS: COMPLETED VA Video Connect (VVC) Standard Documentation VVC Clinician Resources Only: E911 (Emergency Call Relay Center): [phone] National [place] Crisis Line - 988 then press #1. [facility] Suicide Coordinator [phone], Ext. [phone]; Back-up Ext. [phone] [place] Police, Napoleon JOSHUA [phone] Introduction: Visit is being conducted by [place] [employer]. [place] identified with 2 identifiers: [X] Full Name [ ] Date of [ ] VA ID Card [X] Visual Recognition Emergency Plan: [place] confirmed and/or provided the following information in case of emergency or technology failure. PATIENT PHONE - PHONE NUMBER [CELLULAR] - Is patient phone number correct, if not, enter below: 's phone number: PRASANTH GONZALES [address], [place], [address] 's present location and address for appointment: [address] [place] [address]. [place] [address] 's emergency contact name and phone number: Layla Jung [place] reported that location is private and safe: Yes Informed Consent: informed of the risks and benefits of Telehealth video care. has the right to refuse video services. If refuses video visit, a [id number] visit will be scheduled. 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 Provided [...] completion and review of the PCL-5 (Score: 4) 1) Art reported doing well overall, stating that he met his goal of increasing social activities last week, including going to a fair on Thursday, and enjoying a spaghetti dinner with his daughter and family. Art stated that it was nice to laugh, enjoy doing something for himself, and getting away from the stressors of working on his medical claims. 2) The remainder of the session focused on relationship challenges with his . Art detailed frustrations and stressors between him and his , stating that their issues are never really resolved. He shared that communication with his is difficult as she often minimizes what [he] has to say or is dismissive and moves on. He shared that they have tried couple's therapy, with no success. In addition, he shared that his doesn't like [his] adult children , that she speaks negatively about them, and rarely spends any time with them. Art shared that spending time with his adult children and grandchildren is very important to him and that he finds time to visit them at their homes or other places. Art stated his will be visiting her adult children (out of state) for a week and that he has chosen to stay home and do the things that are important to him while she is away, such as, spending time with his children and grandchildren, work on projects and enjoy some time to himself. 3) Art expressed some anxiety regarding his second medical claim for [employer], stating that a hardwood floor layer is helping him, however, he feels like it is a slow process and hopes to meet the deadline. INTERVENTIONS: Continued goal setting, including, increasing meaningful activities, addressed stressors regarding marital challenges, limit news and triggering television programs, focus on the things he can control, effective communication skills, remain connected with friends and family, relaxation [...] PLAN FOR FOLLOW-UP: Next session planned for: 09/22/23 at 1:00pm /rosio/ NATHAN KIRK, Ph.D Clinical Psychologist Signed: 09/17/2023 12:16 NATHAN KIRK [facility]
--- OUTSIDE RECORDS SUMMARY | 2024-02-16 09:11 | XMS_ITS | Encounter Summary ---
Author Name [facility] [place] Address [address] [place] [address] Care Team Providers Care Pan Shaker Name Role Phone SUBHA VELAZQUEZ Primary Care [...] Relationship to Policy Bryson GREGORY PUGA-WN R [place] SPECIAL CLASS GREGORY DIOP Sep 15, 2011 GREOGRY PUGA [id number] PAULA GONZALES [facility] [place] MEDICARE SUPPLEMEN [facility] [employer] [employer] [facility] Aug 09, 2017 [id number] PAULA GONZALES [facility] [place] [facility] SUPPLEMEN [facility] [employer] [facility] SUPP PL Aug 09, 2017 [id number] [phone] PAULA GONZALES PATIENT MEDICARE (WNR) MEDICARE (M) PART A Nov 10, 2019 PART A [id number] PAULA GONZALES PATIENT MEDICARE (WNR) MEDICARE (M) PART B Apr 09, 2010 PART B [id number] PAULA GONZALES PATIENT MEDICARE (WNR) MEDICARE (M) PART B Apr 09, 2010 PART B [id number] PAULA GONZALES PATIENT MEDICARE (WNR) MEDICARE (M) PART B Apr 09, 2010 PART B [id number] PAULA GONZALES PATIENT MEDICARE (WNR) MEDICARE (M) PART A Nov 09, 2009 PART A [id number] PAULA GONZALES PATIENT MEDICARE (WNR) MEDICARE (M) PART A Nov 09, 2009 PART A [id number] [phone] PAULA GONZALES PATIENT Selected Encounter This section includes the information on record at [place] for the Encounter. Date/Time Encounter Type Encounter Description Reason Provider Source Sep 24, 2023 11:30 AM HEARING AID REPAIR/MODIFYIN G AUDIOLOGY ICD-10-CM Z46.1 Encounter for fitting and adjustment of hearing aid MAGALYS GUZMAN Mikhail Encounter Template Text not used by [place] Assessments - Encounter Diagnoses This section includes the primary and secondary diagnoses documented for the Encounter. Date/Time Primary/Secondary Diagnosis Diagnosis Name Provider Source Sep 24, 2023 11:43 AM PRIMARY Encounter for fitting and adjustment of hearing aid [facility]ILLA GU[facility]MAN [facility] Sep 24, 2023 11:43 AM SECONDARY Sensorineural hearing loss, bilateral CAMILLA GUZMAN [facility] Plan of Treatment: Future Appointments (+ 6 months) and Future Tests (+/- 45 days) The Plan of Treatment section includes future care activities for the patient [facility] [place] [facility]. This section includes future appointments and future orders which are active, pending or scheduled. Future Appointments This section includes appointments that were scheduled to occur 6 months from the date of the Encounter, up to a maximum of 20 appointments. The data comes from all [place] treatment facilities. Appointment Date/Time Appointment Type Appointme nt Facility Name Sep 25, 2023 01:00 PM AMBULATORY - MEDICINE [facility] [place] [facility] Sep 29, 2023 01:00 PM AMBULATORY - [facility] Oct 13, 2023 08:00 AM AMBULATORY [...] - PSYCHIATRY [facility] [place] [facility] Dec 01, 2023 01:00 PM AMBULATORY - PSYCHIATRY [facility] [place] [facility] Dec 08, 2023 09:00 AM AMBULATORY - MEDICINE [facility] [place] [facility] Dec 08, 2023 09:01 AM [facility]ORY - [facility]IC[facility] [place] [facility] Dec 08, 2023 01:00 PM AMBULATORY - PSYCHIATRY [facility] [place] [facility] Dec 15, 2023 09:00 AM AMBULATORY - NONE [facility] [place] [facility] Dec 15, 2023 01:00 PM AMBULATORY - PSYCHIATRY [facility] [place] [facility] Dec 29, 2023 04:00 PM AMBULATORY - PSYCHIATRY [facility] [place] [facility] Jan 05, 2024 04:00 PM AMBULATORY - [...] Range Comment Sep 17, 2023 07:56 AM [facility] LIPID PANEL FASTING Specimen Type: SERUM No comment entered. Ordering Provider: SUBHA VELAZQUEZ Report Released Date/Time: May 21, 2023 03:02 PM Reporting Lab: [facility] [address] [facility] [address] Performing Lab: [address] [address] CHOLESTEROL 208 mg/dL H TRIGLYCERIDE 154 mg/dL H 0-150 LDL calculated 139 mg/dL H 0-129 CHOL/HDL 5.5 HDL CHOLESTEROL 38 mg/dL L 40-60 Sep 17, 2023 07:56 AM [facility] BASIC METABOLIC PANEL (non-fasting) Specimen Type: SERUM No comment entered. Ordering Provider: SUBHA VELAZQUEZ Report Released Date/Time: May 21, 2023 03:02 PM Reporting Lab: [address] [address] Performing Lab: [address] [address] UREA NITROGEN 30 mg/dL H 7-25 GLUCOSE [...] 68 119/79 16 96 2 233 33 [facility] Social History: Smoking Status (Most current) and Tobacco Use (All prior to encounter date) This section includes the most current, and the historical, smoking and tobacco- related health factors from the [place] facility where the Encounter took place. Current Smoking Status This section includes the most current smoking, or tobacco-related health factor, from the [place] facility where the Encounter took place. Date/Time Current Smoking Status Comment Louisa koenig May 19, 2023 01:00 PM VA-TOBACCO NEVER USED [place] [facility] [place] [facility] Tobacco Use History This section includes a history of the smoking, or tobacco-related health factors, that were collected on or before the date of the Encounter. The data comes from the [place] facility where the Encounter took place. Date/Time Smoking Status/Tobacco Use Comment Gisele villalobos June 17, 2022 01:00 PM VA-TOBACCO NEVER USED VA [facility] [place] [facility] Jul 16, 2021 01:00 PM VA-TOBACCO NEVER USED [facility] [place] [facility] July 03, 2020 01:00 PM VA-TOBACCO NEVER USED VA [facility] [place] [facility] Jul 11, 2019 02:57 PM VA-TOBACCO NEVER USED VA [facility] [place] [facility] Jan 14, 2019 08:50 AM VA-TOBACCO NEVER USED [facility] [place] [facility] Mar 04, 2018 01:20 PM VA-TOBACCO NEVER USED [facility] [place] [facility] May 27, 2017 11:01 AM LIFETIME NON-TOBACCO USER [place] [facility] [place] [facility] May 20, 2016 10:51 AM LIFETIME NON-TOBACCO USER [place] [facility] [facility] May 03, 2015 01:13 PM LIFETIME NON-TOBACCO USER [place] [facility] [place] [facility] Advance Directives: All historical and current Section Date Range: From patient's date of to the date document was created. This section includes ALL of a patient's completed or amended [place] Advance and Rescinded Directives. The entries below indicate that a directive exists for the patient, but an actual copy is not included with this document. The data comes from all [place] facilities. Date Advance Directives Provider Source Nov 08, 2019 ADVANCE DIRECTIVE MIGDALIA MILES [place] [facility] [place] [facility] Apr 14, 2019 ADVANCE DIRECTIVE RAFAL BULLARD [place] C [facility] [place] [facility] Encounter Notes: All associated encounter notes This section contains the clinical notes associated to the Encounter. Date/Time Encounter Note(s) Provider Source Sep 24, 2023 07:31 AM AUDIOLOGY E & M NO TE: LOCAL TITLE: AUDIOLOGY CLINIC STANDARD TITLE: AUDIOLOGY E & M NOTE DATE OF NOTE: SEP 24, 2023@07:31 ENTRY DATE: SEP 24, 2023@07:31:37 AUTHOR: MAGALYS GUZMAN COSIGNER: URGENCY: STATUS: COMPLETED Dx CODE: Z46.1-Encounter for Fitting/Adjusting Hearing Aid(s); H90.3- Sensorineural Hearing Loss, Bilateral APPOINTMENT TYPE: Hearing Aid Maintenance Check HISTORY/BACKGROUND: The patient was seen for a hearing aid maintenance check appointment, unaccompanied. He was fit with Clarisse Evolv AI BTEs on 07/22/22 and ReSound Linx3D BTEs in 2019. He was scheduled today to pick and shovel man his one-time left L&D replacement aid. The left hearing aid was connected to [employer]/Own[employer] and user settings were restored, feedback it audit manager completed. [place] would like to try wearing his right hearing aid again, and a previous silicone right earmold with short canal was coupled to device. He reported satisfaction with sound quality and fit of both devices. His old backup left ReSound hearing aid (SN:[id number]) thin tube was replaced. Device was found to be in good working order. PLAN/RECOMMENDATION(S): 1. Should reports his right earmold does not stay in his ear, alert this provider to order a right silicone skeleton earmold. /rosio/ MAGALYS GUZMAN STAFF FAMILY CONSUMER SCIENCE FCS TEACHER Signed: 09/24/2023 11:43 [facility] GU[facility]MAN [facility]
--- OUTSIDE RECORDS SUMMARY | 2024-02-16 09:11 | XMS_ITS | Encounter Summary ---
Author Name [facility] [place] Organization [place] Address [address] [place] [address] Care Team Providers Care Structural Steel Detailer Name Role Phone SUBHA VELZAQUEZ Primary Care Provider Unavailabl e Insurance Providers: [...] GREGORY DIOP Sep 15, 2011 GREGORY PUGA [id number] [phone] PAULA FENG PATIENT [facility] MEDIC[facility] SUPPLEMEN [place] [facility] [facility] Aug 09, 2017 [id number] [phone] PAULA FENG PATIENT [facility] MEDICARE SUPPLEMEN [facility] SUPP [facility] Aug 09, 2017 [id number] PAULA FENG PATIENT MEDICARE (WNR) MEDICARE (M) PART A Nov 10, 2019 PART A [id number] PAULA FENG PATIENT MEDICARE (WNR) MEDICARE (M) PART B Apr 09, 2010 PART B [id number] PAULA FENG PATIENT MEDICARE (WNR) MEDICARE (M) PART B Apr 09, 2010 PART B [id number] [id number] PAULA FENG PATIENT MEDICARE (WNR) MEDICARE (M) PART B Apr 09, 2010 PART B [id number] [phone] PAULA FENG PATIENT MEDICARE (WNR) MEDICARE (M) PART A Nov 09, 2009 PART A [id number] PAULA FENG PATIENT MEDICARE (WNR) MEDICARE (M) PART A Nov 09, 2009 PART A [id number] PAULA FENG PATIENT Selected Encounter This section includes the information on record at [place] for the Encounter. Date/Time Encounter Type Encounter Description Reason Provider Source Sep 22, 2023 01:00 PM PSYTX W PT 45 MINUTES [facility] - IND ICD-10-CM F43.10 Post-traumatic stress disorder, unspecified NATHAN KIRK Mikhail Encounter Template Text not used by [place] Assessments - Encounter Diagnoses This section includes the primary and secondary diagnoses documented for the Encounter. Date/Time Primary/Secondary Diagnosis Diagnosis Name Provider Source Sep 22, 2023 10:19 PM PRIMARY Post-traumatic stress disorder, unspecified [facility]ATHAN [facility]IRK [facility] Plan of Treatment: Future Appointments [...] Appointment Type Appointme nt Facility Name Sep 24, 2023 09:00 AM AMBULATORY - MEDICINE [facility] [place] Sep 24, 2023 10:30 AM AMBULATORY - MEDICINE [facility] Sep 24, 2023 11:30 AM AMBULATORY - REHAB MEDICIN E [place] [facility] [place] Sep 25, 2023 01:00 PM AMBULATORY - MEDICINE [facility] [place] Sep 29, 2023 01:00 PM AMBULATORY - PSYCHIATRY [facility] [place] [facility] Oct 13, 2023 08:00 AM AMBULATORY [...] PSYCHIATRY [facility] [place] [facility] Nov 05, 2023 09:00 AM AMBULATORY - [facility]AB MEDICIN E [facility] [place] [facility] Nov 05, 2023 12:00 PM AMBULATORY - MEDICINE [facility] [place] Nov 10, 2023 01:00 PM AMBULATORY - PSYCHIATRY [facility] Nov 17, 2023 01:00 PM AMBULATORY - PSYCHIATRY [facility] Dec 01, 2023 01:00 PM AMBULATORY - PSYCHIATRY [facility] Dec 08, 2023 09:00 AM AMBULATORY - MEDICINE [facility] [place] [facility] Dec 08, 2023 09:01 AM [facility] Dec 08, 2023 01:00 PM AMBULATORY - PSYCHIATRY [facility] Dec 15, 2023 09:00 AM AMBULATORY - NONE [facility] Lab Results: +/- 30 days of [...] 2023 07:56 AM [facility] LIPID PANEL FASTING Specimen Type: SERUM No comment entered. Ordering Provider: FURCOLO,SUBHA Report Released Date/Time: May 21, 2023 03:02 PM Reporting Lab: [facility] [address] [address] Performing Lab: [facility] [address] [address] CHOLESTEROL 208 mg/dL H TRIGLYCERIDE 154 mg/dL H 0-150 LDL calculated 139 mg/dL H 0-129 CHOL/HDL 5.5 HDL CHOLESTEROL 38 mg/dL L 40-60 Sep 17, 2023 07:56 AM [facility] BASIC METABOLIC PANEL (non-fasting) Specimen Type: SERUM No comment entered. Ordering Provider: SUBHA VELAZQUEZ Report Released Date/Time: May 21, 2023 03:02 PM Reporting Lab: [facility] [address] [facility] [address] Performing Lab: [address] [address] UREA NITROGEN 30 mg/dL H 7-25 GLUCOSE [...] 19, 2023 01:00 PM VA-TOBACCO NEVER USED [facility] Tobacco Use History This section includes a history of the smoking, or tobacco-related health factors, that were collected on or before the date of the Encounter. The data comes from the [place] facility where the Encounter took place. Date/Time Smoking Status/Tobacco Use Comment Gisele villalobos June 17, 2022 01:00 PM VA-TOBACCO NEVER USED [facility] [place] [facility] Jul 16, 2021 01:00 PM VA-TOBACCO NEVER USED [facility] July 03, 2020 01:00 PM VA-TOBACCO NEVER USED [facility] [place] [facility] Jul 11, 2019 02:57 PM VA-TOBACCO NEVER USED [facility] [place] Jan 14, 2019 08:50 AM VA-TOBACCO NEVER USED [facility] [place] [facility] Mar 04, 2018 01:20 PM VA-TOBACCO NEVER USED [facility] [place] [facility] May 27, 2017 11:01 AM LIFETIME NON-TOBACCO USER [facility] [place] [facility] May 20, 2016 10:51 AM LIFETIME NON-TOBACCO USER [facility] [place] [facility] May 03, 2015 01:13 PM LIFETIME NON-TOBACCO USER [facility] [place] [facility] Advance Directives: [...] DIRECTIVE MIGDALIA MILES [place] [facility] [place] [facility] Apr 14, 2019 ADVANCE DIRECTIVE RAFAL BULLARD [place] C [facility] [place] Encounter Notes: All associated encounter notes This section contains the clinical notes associated to the Encounter. Date/Time Encounter Note(s) Provider Source Sep 22, 2023 01:05 PM TELEHEALTH NOTE: LOCAL TITLE: VA VIDEO CONNECT PSYCHOLOGY NOTE STANDARD TITLE: TELEHEALTH NOTE DATE OF NOTE: SEP 22, 2023@13:05 ENTRY DATE: SEP 22, 2023@13:05:22 AUTHOR: NATHAN KIRK EXP COSIGNER: URGENCY: STATUS: COMPLETED VA Video Connect (VVC) Standard Documentation VVC Clinician Resources Only: E911 (Emergency Call Relay Center): [phone] [facility] Crisis Line - 988 then press #1. CW Suicide Coordinator [phone], Ext. [phone]; Back-up Ext. [phone] [place] , [place] JOSHUA [phone] Introduction: Visit is being conducted by [place] Video Connect. identified with 2 identifiers: [X] Full Name [ ] Date of [ ] VA ID Card [X] Visual Recognition Emergency Plan: [place] confirmed and/or provided the following information in case of emergency or technology failure. PATIENT PHONE - PHONE NUMBER [CELLULAR] - Is patient phone number correct, if not, enter below: [place]'s phone number: PRASANTH FENG [address], [place], [address] 's present location and address for appointment: [address] [place] [address] [place]'s emergency contact name and phone number: Layla Feng reported that location is private and safe: Yes Informed Consent: informed of the risks and benefits of Telehealth video care. [place] has the right to refuse video services. If refuses video visit, a [id number] visit will be scheduled. 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 Provided Suicide Prevention Hotline number, and other contact numbers as necessary. VISIT DURATION: 45 Minutes DIAGNOSIS: PTSD [employer] STATEMENT OF GOALS/CONCERNS: Reduce irritability, avoidance, work on current challenges (including medical issues, particularly, cancer diagnosis), relationship issues, increase. meaningful activities and remain connected with people he is close to. SESSION FOCUS: Session began with medical issues and concerns, which Art plans to discuss with his Neurologist tomorrow as he believes they are, interrelated issues. Art also shared that he spoke with his lead sql developer regarding his second claim for exposure to contaminated/toxic water while assigned to [employer]. Art stated that his lead sql developer told him No one (who has put in a claim for [place] [employer]) has been paid yet and that it could take years for this to happen. The remainder of the session focused post-[place] experiences. Art shared that he was often asked inappropriate questions when he returned from [place], such as, asking if he killed anyone, or Was [place] really that bad? , which he found triggering and would often leave the conversation. shared that people didn't seem to realize how traumatic the experience was, and the impact of their comments or questions. Art also shared that current events can be triggering for him. He stated that he limits the amount of news he watches each day. Will revisit next session. INTERVENTIONS: Continued goal setting, including, increasing meaningful [...] PLAN FOR FOLLOW-UP: Next session planned for: 09/29/23 at 1:00pm /rosio/ NATHAN KIRK, Ph.D Clinical Psychologist Signed: 09/22/2023 22:19 NATHAN KIRK [facility]
--- OUTSIDE RECORDS SUMMARY | 2024-02-16 09:11 | XMS_ITS | Encounter Summary ---
Author Name [place] Address [address] [place] [address] Care Team Providers Care Radiology Manager Name Role Phone SUBHA VELAZQUEZ Primary [...] GREGORY DIOP Sep 15, 2011 GREGORY PUGA [id number] PAULA GONZALES PATIENT [facility] [place] MEDICARE SUPPLEMEN [place] [employer] Aug 09, 2017 [id number] PAULA GONZALES PATIENT [facility] [place] MEDIC[employer] SU[employer]MEN [place] [employer] [employer] [facility] SUPP PL Aug 09, 2017 [id number] PAULA GONZALES PATIENT MEDICARE (WNR) MEDICARE (M) PART A Nov 10, 2019 PART A [id number] PAULA GONZALES PATIENT MEDICARE (WNR) MEDICARE (M) PART B Apr 09, 2010 PART B [id number] PAULA GONZALES PATIENT MEDICARE (WNR) MEDICARE (M) PART B Apr 09, 2010 PART B [id number] PAULA GONZALES PATIENT MEDICARE (WNR) MEDICARE (M) PART B Apr 09, 2010 PART B [id number] PAULA GONZALES PATIENT MEDICARE (WNR) MEDICARE (M) PART A Nov 09, 2009 PART A [id number] PAULA GONZALES PATIENT MEDICARE (WNR) MEDICARE (M) PART A Nov 09, 2009 PART A [id number] PAULA GONZALES PATIENT Selected Encounter This section includes the information on record at [place] for the Encounter. Date/Time Encounter Type Encounter Description Reason Provider Source Sep 24, 2023 09:52 AM ELECTROCARDIOGRAM TRACING EKG ICD-10-CM R55 Syncope and collapse ALANA RUBIO Encounter Template Text not used by [place] Assessments - Encounter Diagnoses This section includes the primary and secondary diagnoses documented for the Encounter. Date/Time Primary/Secondary Diagnosis Diagnosis Name Provider Source Sep 24, 2023 11:00 AM PRIMARY Syncope and collapse [facility]ER [facility] Plan of Treatment: Future Appointments (+ [...] 25, 2023 01:00 PM AMBULATORY - MEDICINE [facility] [place] [place] [facility] Sep 29, 2023 01:00 PM AMBULATORY - PSYCHIATRY [place] [facility] [facility] Oct 13, 2023 08:00 AM AMBULATORY - MEDICINE [facility] [place] [facility] Oct 13, 2023 01:00 PM AMBULATORY - PSYCHIATRY [place] [facility] [place] [facility] Oct 14, 2023 08:00 AM AMBULATORY - MEDICINE [facility] [place] [place] [facility] Oct 20, 2023 01:00 PM AMBULATORY [...] 09:01 AM AMBULATORY - MEDICINE [place] [facility] Dec 08, 2023 01:00 PM AMBULATORY - PSYCHIATRY [place] [facility] [place] [facility] Dec 15, 2023 09:00 AM AMBULATORY - NONE [place] [facility] [place] [facility] Dec 15, 2023 01:00 PM AMBULATORY - PSYCHIATRY [place] [facility] [place] [facility] Dec 29, 2023 04:00 PM AMBULATORY - PSYCHIATRY [place] [facility] [place] [facility] Jan 05, 2024 04:00 PM AMBULATORY - PSYCHIATRY [place] [facility] [place] [facility] Lab Results: +/- 30 days of the encounter This section includes the Chemistry and Hematology Lab Results on record with [place] for the patient. Radiology Reports and Pathology Reports are provided separately, in subsequent sections. Lab Results This section contains the Chemistry/Hematology Results that were resulted 30 days before or 30 daysafter the date of the Encounter. Date/Time Source Result Type Result - Unit Interpretation Reference Range Comment Sep 17, 2023 07:56 AM [place] [facility] [place] [facility] LIPID PANEL FASTING Specimen Type: SERUM No comment entered. Ordering Provider: SUBHA VELAZQUEZ Report Released Date/Time: May 21, 2023 03:02 PM Reporting Lab: [place] [facility] [address] [address] Performing Lab: [facility] [address] [address] CHOLESTEROL 208 mg/dL H TRIGLYCERIDE 154 mg/dL H 0-150 LDL calculated 139 mg/dL H 0-129 CHOL/HDL 5.5 HDL CHOLESTEROL 38 mg/dL L 40-60 Sep 17, 2023 07:56 AM [facility] BASIC METABOLIC PANEL (non-fasting) Specimen Type: SERUM No comment entered. Ordering Provider: SUBHA VELAZQUEZ Report Released Date/Time: May 21, 2023 03:02 PM Reporting Lab: [facility] [address] [address] Performing Lab: [address] [address] UREA NITROGEN 30 mg/dL H 7-25 GLUCOSE [...] 68 119/79 16 96 2 233 33 [facility] Social History: Smoking Status (Most [...] 19, 2023 01:00 PM VA-TOBACCO NEVER USED [facility] Tobacco Use History This section includes a history of the smoking, or tobacco-related health factors, that were collected on or before the date of the Encounter. The data comes from the [place] facility where the Encounter took place. Date/Time Smoking Status/Tobacco Use Comment F accynthia June 17, 2022 01:00 PM VA-TOBACCO NEVER USED [place] [facility] [place] [facility] Jul 16, 2021 01:00 PM VA-TOBACCO NEVER USED [facility] [place] [facility] July 03, 2020 01:00 PM VA-TOBACCO NEVER USED [facility] [place] [facility] Jul 11, 2019 02:57 PM VA-TOBACCO NEVER USED [facility] [place] [facility] Jan 14, 2019 08:50 AM VA-TOBACCO NEVER USED [facility] [place] [facility] Mar 04, 2018 01:20 PM VA-TOBACCO NEVER USED [facility] [facility] May 27, 2017 11:01 AM LIFETIME NON-TOBACCO USER [facility] [place] [facility] May 20, 2016 10:51 AM LIFETIME NON-TOBACCO USER [facility] [place] [facility] May 03, 2015 01:13 PM LIFETIME NON-TOBACCO USER [facility] [place] [facility] Advance Directives: All historical and [...] DIRECTIVE MIGDALIA MILES [place] [facility] [facility] Apr 14, 2019 ADVANCE DIRECTIVE RAFAL BULLARD [place] C [facility] [place] [facility] Encounter Notes: All associated encounter notes This section contains the clinical notes associated to the Encounter. Date/Time Encounter Note(s) Provider Source Sep 24, 2023 10:59 AM CARDIOLOGY DIAGNOS TIC STUDY CONSULT: LOCAL TITLE: CONSULT REPORT/EKG STANDARD TITLE: CARDIOLOGY DIAGNOSTIC STUDY CONSULT DATE OF NOTE: SEP 24, 2023@10:59 ENTRY DATE: SEP 24, 2023@10:59:55 AUTHOR: SATYA KOHLER COSIGNER: URGENCY: STATUS: COMPLETED EKG tracing was performed by JEAN Rubio for diagnosis of Syncope and collapse(ICD- 10-CM R55.) ordered by SUBHA Pruitt. /rosio/ Satya Kohler LPN Licensed Practical Nurse Signed: 09/24/2023 11:01 SATYA KOHLER [facility]
--- OUTSIDE RECORDS SUMMARY | 2024-02-16 09:11 | XMS_ITS ---
Author Name [facility] [place] Address [address] [place] [address] Care Team Providers Care Steam Crane Operator Name Role Phone SUBHA VELAZQUEZ Primary [...] GREGORY DIOP Sep 15, 2011 GREGORY PUGA [id number] [phone] PAULA GONZALES PATIENT [facility] [place] MEDICARE SUPPLEMEN [employer] Aug 09, 2017 [id number] PAULA GONZALES PATIENT [facility] [place] [facility] SU[employer]LEMEN [facility] [employer] [facility] SUPP PL Aug 09, 2017 [id number] [phone] PAULA GONZALES PATIENT MEDICARE (WNR) MEDICARE (M) PART A Nov 10, 2019 PART A [id number] PAULA GONZALES PATIENT MEDICARE (WNR) MEDICARE (M) PART B Apr 09, 2010 PART B [id number] PAULA GONZALES PATIENT MEDICARE (WNR) MEDICARE (M) PART B Apr 09, 2010 PART B [id number] PAULA GONZALES PATIENT MEDICARE (WNR) MEDICARE (M) PART B Apr 09, 2010 PART B [id number] PAULA GONZALES PATIENT MEDICARE (WNR) MEDICARE (M) PART A Nov 09, 2009 PART A [id number] PAULA GONZALES PATIENT MEDICARE (WNR) MEDICARE (M) PART A Nov 09, 2009 PART A [id number] PAULA GONZALES PATIENT Selected Encounter This section includes the information on record at [place] for the Encounter. Date/Time Encounter Type Encounter Description Reason Pro vider Source Apr 23, 2023 12:00 AM Outpatient Encounter COMMUNITY CARE CONSULT IHE Encounter Template Text not used by [place] Plan of Treatment: Future Appointments (+ 6 months) and Future Tests (+/- 45 days) The Plan of Treatment section includes future care activities for the patient [facility] all [place] [facility] This section includes future appointments and future [...] 06, 2023 12:30 PM AMBULATORY - NONE [place] [facility] [place] [facility] May 07, 2023 03:30 PM AMBULATORY - MEDICINE [place] [place] [facility] May 12, 2023 01:00 PM AMBULATORY - PS[place]CHIATRY [place] [facility] [place] [facility] May 19, 2023 01:00 PM AMBULATORY - PS[place]CHIATRY [place] [facility] [place] [facility] May 21, 2023 02:00 PM AMBULATORY - MEDICINE [place] [place] [facility] May 26, 2023 01:00 PM AMBULATORY - PSYCHIATRY [place] [facility] [place] [facility] Jun 02, 2023 01:00 PM AMBULATORY - PSYCHIATRY [place] [facility] [place] [facility] Jun 05, 2023 09:00 AM AMBULATORY - NONE [place] [facility] [place] [facility] Jun 09, 2023 09:30 AM AMBULATORY - MEDICINE [place] [facility] [place] [facility] Jun 09, 2023 09:31 AM AM[place]ORY [place]ICINE [place] [facility] June 30, 2023 01:00 PM AMBULATORY - PSYCHIATRY [place] [facility] [place] [facility] Jul 28, 2023 01:00 PM AMBULATORY - PSYCHIATRY [place] [facility] [place] [facility] Aug 04, 2023 01:00 PM AMBULATORY - PSYCHIATRY [place] [facility] [place] [facility] Aug 11, 2023 09:00 AM AMBULATORY - MEDICINE [place] [facility] [place] [facility] Aug 11, 2023 01:00 PM AMBULATORY - PSYCHIATRY [place] [facility] [place] [facility] Aug 17, 2023 10:00 AM AMBULATORY - REHAB MEDICIN E [place] [facility] [place] [facility] Sep 01, 2023 01:00 PM AMBULATORY - PSYCHIATRY [place] [facility] [place] [facility] Sep 08, 2023 01:00 PM AMBULATORY - PS[place]CHIATRY [place] [facility] [place] [facility] Sep 15, 2023 01:00 PM AMBULATORY - PSYCHIATRY [place] [facility] [place] [facility] Sep 22, 2023 01:00 PM AMBULATORY - PS[place]CHIATRY [place] [facility] [place] [facility] Active, Pending, and Scheduled Orders This section [...] RNA PCR PANEL(WHV) BLOOD (SST-GOLD) [facility] [place] [facility] Social History: Smoking Status (Most current) and [...] VA-TOBACCO NEVER USED [place] [facility] [place] [facility] Tobacco Use History This section includes a history of the smoking, or tobacco-related health factors, that were collected on or before the date of the Encounter. The data comes from the [place] facility where the Encounter took place. Date/Time Smoking Status/Tobacco Use Comment F acility Jul 16, 2021 01:00 PM VA-TOBACCO NEVER USED [place] [facility] [place] [facility] July 03, 2020 01:00 PM VA-TOBACCO NEVER USED [place] [facility] [place] [facility] Jul 11, 2019 02:57 PM VA-TOBACCO NEVER USED [place] [facility] [place] [facility] Jan 14, 2019 08:50 AM VA-TOBACCO NEVER USED [place] [facility] [place] [facility] Mar 04, 2018 01:20 PM VA-TOBACCO NEVER USED [place] [facility] [place] [facility] May 27, 2017 11:01 AM LIFETIME NON-TOBACCO USER [place] [facility] [place] [facility] May 20, 2016 10:51 AM LIFETIME NON-TOBACCO USER [place] [facility] [place] [facility] May 03, 2015 01:13 PM LIFETIME NON-TOBACCO USER [place] [facility] [place] [facility] Advance Directives: All historical and current Section [...] DIRECTIVE MIGDALIA MILES [place] [facility] [place] [facility] Apr 14, 2019 ADVANCE DIRECTIVE RAFAL BULLARD [place] C [facility] [place] [facility] Encounter Notes: All associated encounter notes This section contains the clinical notes associated to the Encounter. Date/Time Encounter Note(s) Provider Source Apr 23, 2023 12:00 AM NONVA CONSULT: LOCAL TITLE: COMMUNITY CARE-CONSULT RESULT NOTE STANDARD TITLE: NONVA CONSULT DATE OF NOTE: APR 23, 2023 ENTRY DATE: SEP 23, 2023@08:39:29 AUTHOR: BOURDON,SPENCER EXP COSIGNER: URGENCY: STATUS: COMPLETED VistA Imaging - Scanned Document SCANNED DOCUMENT SIGNATURE NOT REQUIRED Electronically Filed: 09/23/2023 by: SP[facility]ER HORNE [facility]
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
--- OUTSIDE RECORDS SUMMARY | 2024-02-16 09:12 | XMS_ITS | Encounter Summary ---
Author Name [facility] [place] [facility] [place] [facility] [place] [facility] [place] Address [address] [place] [address] Care Team Providers Care Research Program Coordinator Name Role Phone SUBHA VELAZQUEZ Primary [...] Relationship to Policy Bryson GREGORY PUGA-WN R [place] SPECIAL CLASS GREGORY DIOP Sep 15, 2011 GREGORY PUGA [id number] [phone] PAULA GONZALES PATIENT [facility] SUPPLEMEN [facility] Aug 09, 2017 [id number] PAULA GONZALES PATIENT [facility] [place] MED[facility] SUPPLEMEN MARIA ELENA [facility] SUPP PL Aug 09, 2017 [id number] [phone] PAULA GONZALES PATIENT MEDICARE (WNR) MEDICARE (M) PART A Nov 10, 2019 PART A [id number] PAULA GONZALES PATIENT MEDICARE (WNR) MEDICARE (M) PART B Apr 09, 2010 PART B [id number] PAULA GONZALES PATIENT MEDICARE (WNR) MEDICARE (M) PART B Apr 09, 2010 PART B [id number] PAULA GONZALES PATIENT MEDICARE (WNR) MEDICARE (M) PART B Apr 09, 2010 PART B [id number] PAULA GONZALES PATIENT MEDICARE (WNR) MEDICARE (M) PART A Nov 09, 2009 PART A [id number] [phone] PAULA GONZALES PATIENT MEDICARE (WNR) MEDICARE (M) PART A Nov 09, 2009 PART A [id number] PAULA GONZALES PATIENT Selected Encounter This section includes the information on record at [place] for the Encounter. Date/Time Encounter Type Encounter Description Reason Provider Source Dec 08, 2023 09:01 AM OFFICE O/P EST MOD 30 MIN SLEEP MEDICINE ICD-10-CM G47.33 Obstructive sleep apnea (adult) (pediatric) ANNIE CONRAD Mikhail Encounter Template Text not used by [place] Assessments - Encounter Diagnoses This section includes the primary and secondary diagnoses documented for the Encounter. Date/Time Primary/Secondary Diagnosis Diagnosis Name Provider Source Dec 08, 2023 09:26 AM PRIMARY Obstructive sleep apnea (adult) (pediatric) ANNIE CONRAD [facility] Dec 08, 2023 09:26 AM SECONDARY Central sleep apnea in conditions classified elsewhere [facility] Plan of Treatment: Future Appointments (+ 6 months) and Future Tests (+/- 45 days) The Plan of Treatment section includes future care activities for the patient from all [place] [facility]. This section includes future appointments and future orders which are active, pending or scheduled. Future Appointments This section includes appointments that were scheduled to occur 6 months from the date of the Encounter, up to a maximum of 20 appointments. The data comes from all [place] treatment facilities. Appointment Date/Time Appointment Type Appointme nt Facility Name Dec 15, 2023 09:00 AM AMBULATORY - NONE [place] [facility] [place] [facility] Dec 15, 2023 01:00 PM AMBULATORY [place]IATRY [place] [facility] [place] [facility] Dec 29, 2023 04[facility]00 PM [facility] Jan 05, 2024 04:00 PM AM[place]UL[place] [facility] [place] [facility] Jan 26, 2024 04:00 PM AMBUL[place]ORY [place] [facility] [place] [facility] Feb 09, 2024 04:00 PM AMBUL[place]ORY [place] [facility] [place] [facility] Feb 16, 2024 09:00 AM AMBULATORY - [place]ICINE [place] [facility] [place] [facility] Feb 19, 2024 01:00 PM AM[place]UL[place]ORY [place] [facility] [place] [facility] Feb 23, 2024 04:00 PM AMBUL[place]ORY [place] [facility] [place] [facility] Mar 01, 2024 04:00 PM [facility] [place] [facility] Mar 29, 2024 09:00 AM AMBULATORY - MEDICINE [facility] Active, Pending, and Scheduled Orders This section includes a listing of several types of active, pending, and scheduled orders, including clinic medications orders, diagnostic test orders, procedure orders and consult orders; where the start date of the order is 45 days before the date of the Encounter or 45 days after the date of theEncounter. The data comes from all [place] treatment facilities. Test Date/Time Test Type Test Details Facility Name Dec 23, 2023 08:28 AM Consult Order COMMUNITY CARE-DENTAL GENERAL Cons Rug Scratcher's Choice [facility] Jan 20, 2024 12:12 PM Consult Order COMMUNITY CARE-UROLOGY Cons Rug Scratcher's Choice [facility] Advance Directives: All historical and current Section Date Range: From patient's date of to the date document was created. This section includes ALL of a patient's completed or amended [place] Advance and Rescinded Directives. The entries below indicate that a directive exists for the patient, but an actual copy is not included with this document. The data comes from all [place] facilities. Date Advance Directives Provider Source Nov 08, 2019 ADVANCE DIRECTIVE MIGDALIA MILES [place] [facility] [place] [facility] Apr 14, 2019 ADVANCE DIRECTIVE RAFAL BULLARD [place] [facility] Encounter Notes: All associated encounter notes This section contains the clinical notes associated to the Encounter. Date/Time Encounter Note(s) Provider Source Dec 08, 2023 08:49 AM SLEEP MEDICINE NOT E: LOCAL TITLE: SLEEP DISORDER FOLLOW-UP NOTE STANDARD TITLE: SLEEP MEDICINE NOTE DATE OF NOTE: DEC 08, 2023@08:49 ENTRY DATE: DEC 08, 2023@08:49:25 AUTHOR: ANNIE CONRAD COSIGNER: URGENCY: STATUS: COMPLETED SLEEP MEDICINE TELEMEDICINE FOLLOW UP (CVT) This visit was conducted in CVT clinic. 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 He presents for follow up. He was first seen at our clinic in Oct 2022. He was curious about the Inspire device. But his sleep Study from 07/01 in [place] showed moderate obstructive sleep apnea with significant [...] finds ASV to be much more comfortable. Interval History: At our last visit, he was advised to turn on device before putting pillows on to avoid the inversion of the silicone pillows; also try tightening the straps to reduce leak. He was also counseled on regular replacement of the pillow inserts (every 2-4 weeks). He was later seen in CPAP clinic, was issued the N30i nasal mask. He found the headgear to be difficult to use. Download shows / days of usage, avg use ~6hr daily, L95 67 lpm, residual AHI 4.9/hr. Compared to last visit, the air leaks have worsened. He reports that the air leak has been waking him up. He has been AirFit P10 medium. His daytime sleepiness has improved since our last visit. Current sleep-wake cycle: Bedtime: 10pm Sleep latency: 10 min # of awakenings/how lonx/night to urinate, SL immediate (down from 3- 4x/night) Rise time: 4:30am, OOB by 5am Estimated nocturnal sleep: 6hr Bedpartner: Napping: no Drowsy driving: no EPWORTH SLEEPINESS SCALE: TOTAL 02/01 (assessed at prior visit)--> TOTAL 24 Sitting and Reading 3 score Watching Television 2 score Sitting inactive in a public place 0 score Sitting as a passenger in a car 1 hour without a break 1 score Lying down to rest in the afternoon 1 score Sitting and talking to someone 0 score Sitting quietly after lunch without alcohol 1 score In a car, stopped for a few minutes in traffic 0 score Pertinent Social Hx: Caffeine: 2 cups of coffee in the morning ETOH: no Smoking: never 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 Lacunar infarction on MRI, silent, has seen [facility] neuro- Dr. Kvng Camacho 3. Contact with and (Suspected) Exposure to Water Pollution [facility] 4. Exposure to potentially hazardous substance +AO, +[facility] 5. COPD - Chronic Obstructive Pulmonary Disease ([facility] [id number]) asthma 6. Allergic Rhinitis ([facility] [id number]) 7. Peripheral vascular disease 8. Back pain 9. Bladder cancer 2017, high grade, Dr. Hester [facility] cystoscopies q3 mos 2018 Status post 2 surgeries and BCG treatment Recurrence of tumor chemo for 6 weeks 10. Hyperlipidemia 11. Sleep apnea does not tolerate cpap 12. Mood disorder with depressive features due to general medical condition recent diagnosis of Bladder Ca 13. Hard of hearing 14. Chronic post-traumatic stress disorder MEDS: THIAMINE 50MG TAB AMOXICILLIN 500MG CAP METOPROLOL SUCCINATE 25MG SA TAB BUDESONIDE 160/FORMOTER 4.5MCG 120D INH ASPIRIN TAB,EC, NON-VA (Patient/Family Reported) FISH OIL 500MG DHA/EPA CAP,ORAL, NON-VA (Patient/Family Reported) VITAMIN D3 (CHOLECALCIFEROL) TAB, NON-VA (Patient/Family Reported) GLUCOSAMINE/CHONDROITIN CAP/TAB, NON-VA (Patient/Family Reported) ACETAMINOPHEN TAB, NON-VA (Patient/Family Reported) ALLERGIES: atorvastatin PE: BODY MASS INDEX - NO HEIGHTS FOUND GEN: well appearing, in NAD HEENT: NC/AT, neck supple, sclera anicteric, teeth ---, Mallampati --- NEURO: awake, alert, no focal deficits PSYCH: normal mood and affect TTE 04/22/23 reviewed Normal LVEF 65% RV nl size and function mild MR borderline dilated ascending aorta PRIOR SLEEP STUDIES: Positive Airway Pressure Titration Polysomnography Report [facility] Patient: PRASANTH GONZALES : 1945 Gender: Male BMI: 33.3 Study Date: 01/24/2023 Referring physician: DR HUERTA Indications: Treatment of Sleep Apnea. Symptoms: Witnessed apneas Sinclair sleepiness scale: Co-morbidities: Bladder cancer, COPD, PTSD, combined obstructive [...] 0.1 0.0 0.0 0 0 93 94 7//0 8.4 0.0 0.0 0 0 92 93 9/9/0 3.0 0.0 0.0 0 0 93 94 BiPAP-ST TABLE: I/E/RR TST REM AHI OAs Yashira O2 min. Mean O2 10/15/11 8.3 0.0 14.5 0 0 92 94 12/15/11 4.2 0.0 57.6 0 0 92 94 14 0.0 0.0 0.0 0 0 - - 12/15/15 8.1 0.0 29.8 0 0 90 93 22/08/15 13.6 0.0 0.0 0 0 91 93 21/08/17 24.4 0.0 0.0 0 0 92 93 ASV PAP TABLE: MaxPs/E/MinPs TST REM AHI OAs Yashira O2 min. Mean O2 23.5 7.0 2.6 0 0 90 92 17.0 0.0 0.0 0 0 90 92 GONZALESPRASANTH 11/07/2023 - 2023 : 1945 Age: 78 years [employer] Compliance Report Compliance Payor [facility] Usage 11/07/2023 - 2023 Usage days 29/30 days (97%) >= 4 hours 26 days (87%) < 4 hours 3 days (10%) Usage hours 169 hours 37 minutes Average usage (total days) 5 hours 39 minutes Average usage (days used) 5 hours 51 minutes Median usage (days used) 6 hours 8 minutes Total used hours (value since last reset - 2023) 988 hours AirCurve 10 ASV Serial number [id number] Mode ASV EPAP 7 cmH2O Min PS 3 cmH2O Max PS 15 cmH2O Therapy Leaks - L/min Median: 38.9 95th percentile: 67.0 Maximum: 81.2 Events per hour AI: 0.2 HI: 4.7 AHI: 4.9 Impression: 77 year old with 1) Moderate mixed obstructive and central sleep apnea, previously failed CPAP, now newly on ASV with excellent daily adherence, perceiving benefits with use (significantly reduced nocturia, reduced daytime sleepiness) and has good efficacy with therapy (residual AHI 4/hr). Only minor issue is the air leaks coming from his nasal pillows. I believe this can be addressed by switching to a smaller size P10 nasal pillow insert. 2) Hypersomnia, significantly improved with ESS 12-->8 Plan: - cont daily use of ASV - requested the AirFit P10 small nasal pillow insert to try - also requested the Brevida nasal pillow fit pack to try - vet can follow up in CPAP clinic to address air leak from interface RTC in 12 months. /rosio/ ANNIE CONRAD MD ATTENDING Signed: 12/08/2023 09:26 ANNIE CONRAD [facility]
--- OUTSIDE RECORDS SUMMARY | 2024-02-16 09:12 | XMS_ITS | Encounter Summary ---
Author Name [facility] [facility] [place] Address [address] [place] [address] Care Team Providers Care Field Sales Agent Name Role Phone SUBHA VELAZQUEZ Primary Care [...] GREGORY DIOP Sep 15, 2011 GREGORY PUGA [id number] PAULA GONZALES PATIENT [facility] [employer] [employer] [facility] [employer] [employer] [facility] Aug 09, 2017 [id number] [phone] PAULA GONZALES PATIENT [facility] [employer] [facility] SUPP PL Aug 09, 2017 [id number] PAULA GONZALES PATIENT MEDICARE (WNR) MEDICARE (M) PART A Nov 10, 2019 PART A [id number] PAULA GONZALES PATIENT MEDICARE (WNR) MEDICARE (M) PART B Apr 09, 2010 PART B [id number] PAULA GONZALES PATIENT MEDICARE (WNR) MEDICARE (M) PART B Apr 09, 2010 PART B [id number] [phone] [id number] PAULA GONZALES PATIENT MEDICARE (WNR) MEDICARE (M) PART B Apr 09, 2010 PART B [id number] [phone] PAULA GONZALES PATIENT MEDICARE (WNR) MEDICARE (M) PART A Nov 09, 2009 PART A [id number] PAULA GONZALES PATIENT MEDICARE (WNR) MEDICARE (M) PART A Nov 09, 2009 PART A [id number] PAULA GONZALES PATIENT Selected Encounter This section includes the information on record at [place] for the Encounter. 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 Date/Time Primary/Secondary Diagnosis Diagnosis Name Provider Source Oct 16, 2023 08:17 AM PRIMARY Vitreous degeneration, left eye [facility] Oct 16, 2023 08:17 AM SECONDARY Combined forms of age-related cataract, bilateral [facility]ATFIELD,DUY J [facility] [place] [facility] Oct 16, 2023 08:17 AM SECONDARY Presbyopia HATFIELD,DUY J [facility] Plan of Treatment: Future Appointments (+ 6 months) and Future Tests (+/- 45 days) The Plan of Treatment section includes future care activities for the patient from all [place] treatmentfacilities. This section includes future appointments and future orders which are active, pending or scheduled. Future Appointments This section includes appointments that were scheduled to occur 6 months from the date of the Encounter, up to a maximum of 20 appointments. The data comes from all [place] treatment facilities. Appointment Date/Time Appointment Type Appointme nt Facility Name Sep 29, 2023 01:00 PM [facility] Oct 13, 2023 08:00 [...] PSYCHI[facility] [place] [facility] Jan 26, 2024 04:00 PM AMBULATORY - PSYCHIATRY [facility] [...] Range Comment Sep 17, 2023 07:56 AM [facility] LIPID PANEL FASTING Specimen Type: SERUM No comment entered. Ordering Provider: SUBHA VELAZQUEZ Report Released Date/Time: May 21, 2023 03:02 PM Reporting Lab: [facility] [address] [facility] [id number] Performing Lab: [address] [id number] CHOLESTEROL 208 mg/dL H TRIGLYCERIDE 154 mg/dL H 0-150 LDL calculated 139 mg/dL H 0-129 CHOL/HDL 5.5 HDL CHOLESTEROL 38 mg/dL L 40-60 Sep 17, 2023 07:56 AM [facility] BASIC METABOLIC PANEL (non-fasting) Specimen Type: SERUM No comment entered. Ordering Provider: SUBHA VELAZQUEZ Report Released Date/Time: May 21, 2023 03:02 PM Reporting Lab: [facility] [address] [facility] [id number] Performing Lab: [facility] [address] [facility] [address] UREA NITROGEN 30 mg/dL H 7-25 GLUCOSE [...] and tobacco- related health factors from the [place] facility where the Encounter took place. Current Smoking Status This section includes the most current smoking, or tobacco-related health factor, from the [place] facility where the Encounter took place. Date/Time Current Smoking Status Comment Louisa koenig May 19, 2023 01:00 PM VA-TOBACCO NEVER USED [facility] Tobacco Use History This section includes a history of the smoking, or tobacco-related health factors, that were collected on or before the date of the Encounter. The data comes from the [place] facility where the Encounter took place. Date/Time Smoking Status/Tobacco Use Comment F acility June 17, 2022 01:00 PM VA-TOBACCO NEVER USED [facility] [place] [facility] Jul 16, 2021 01:00 PM VA-TOBACCO NEVER USED [facility] [place] [facility] July 03, 2020 01:00 PM VA-TOBACCO NEVER USED [facility] [place] [facility] Jul 11, 2019 02:57 PM VA-TOBACCO NEVER USED [facility] [place] [facility] Jan 14, 2019 08:50 AM VA-TOBACCO NEVER USED [facility] [place] [facility] Mar 04, 2018 01:20 PM VA-TOBACCO NEVER USED [facility] [place] [facility] May 27, 2017 11:01 AM LIFETIME NON-TOBACCO USER [facility] [place] [facility] May 20, 2016 10:51 AM LIFETIME NON-TOBACCO USER [facility] [place] [facility] May 03, 2015 01:13 PM LIFETIME NON-TOBACCO USER [facility] [place] [facility] Advance Directives: All historical and current Section [...] DIRECTIVE MIGDALIA MILES [place] [facility] [place] [facility] Apr 14, 2019 ADVANCE DIRECTIVE RAFAL BULLARD [place] [facility] [place] [facility] Encounter Notes: All associated encounter notes This section contains the clinical notes associated to the Encounter. Date/Time Encounter Note(s) Provider Source Sep 25, 2023 12:25 PM OPTOMETRY NOTE: LOCAL TITLE: OPTOMETRY NOTE STANDARD TITLE: OPTOMETRY NOTE DATE OF NOTE: SEP 25, 2023@12:25 ENTRY DATE: SEP 25, 2023@12:25:06 AUTHOR: DUY HATFIELD COSIGNER: URGENCY: STATUS: COMPLETED Eye Examination for: PRASANTH S GONZALES, 77 year old WHITE MALE DIOGO: 3.28.24 Reason for Visit/CC: Patient here for urgent evaluation of flashes and floaters OS. Reports a couple months ago the left eye started to twitch intermittently maybe 1-2 times per day. Then he noticed he had black spots that had been there before but noticing more after the twitching. Reports it feels like a lash or brow hanging down and it is the shape of a c or black spots and goes off to the left. Reports for past 2 weeks at dusk he will get white streaks in vision. Reports he has not had one in a couple days. Reports but the 2-3 weeks prior was noticing and 1 night noticed about every 30 seconds. Streaks almost every time was horizontal and rarely vertical. Denies changes in clarity, denies urtain/veil over vision, denies loss of peripheral vision. Reports he does not wear glasses for distance but finds the computer and reading glasses very helpful. Denies all other changes or complaints. Current Ocular Meds: none OHx/HPI: 1. JOSE OU 2. Combined cataract OU 3. RE,P (-) Pain: (-) EDWARDS: (-) Diplopia: (-) Flashes: (-) Floaters: (-) Amaurosis Fugax/Tia's: (-) Eye Injury: (+) Eye Surgery: lesion ?OS removed by Dr. Barrientos 2022 (-) TBI FOHx: (-) Glaucoma (-) ARMD (-) Blindness MHx: Code Description B19.20 Type C viral hepatitis ([facility] [id number]) I63.81 Lacunar infarction ([facility] [id number]) Z77.111 Contact with and (Suspected) Exposure to Water Pollution (ICD-10-CM Z77.111) Z77.29 Exposure to potentially hazardous substance ([facility] [id number]) J44.9 COPD - Chronic Obstructive Pulmonary Disease ([facility] [id number]) J30.9 Allergic Rhinitis ([facility] [id number]) I73.9 Peripheral vascular disease ([facility] [id number]) M54.5 Back pain ([facility] [id number]) D09.0 Bladder cancer ([facility] [id number]) E78.5 Hyperlipidemia ([facility] [id number]) G47.39 Sleep apnea ([facility] [id number]) 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 ([facility] [id number]) H90.0 Hard of hearing ([facility] [id number]) F43.10 Chronic post-traumatic stress disorder ([facility] [id number]) SYSTEMIC MEDICATIONS/OCULAR MEDICATIONS: Active Outpatient Medications (including Supplies): Active Outpatient Medications Status 1) EZETIMIBE 10MG TAB TAKE ONE TABLET BY MOUTH ONCE ACTIVE DAILY TO LOWER CHOLESTEROL 2) METOPROLOL SUCCINATE 25MG SA TAB TAKE ONE TABLET BY ACTIVE MOUTH ONCE DAILY FOR BLOOD PRESSURE/HEART 3) THIAMINE 50MG TAB TAKE ONE TABLET BY MOUTH ONCE DAILY ACTIVE FOR DEFICIENCY IN THIAMINE OR VITAMIN B1 Pending Outpatient Medications Status 1) BUDESONIDE 160/FORMOTER 4.5MCG 120D INH INHALE 2 PENDING PUFFS BY MOUTH TWICE DAILY - RINSE MOUTH AFTER USE Active Non-VA Medications Status 1) Non-VA ACETAMINOPHEN TAB BY MOUTH ACTIVE 2) Non-VA ASPIRIN 81MG EC TAB 81MG BY MOUTH DAILY ACTIVE 3) Non-VA CHOLECALCIF 50MCG (D3-2,000UNIT) TAB 2000UNIT ACTIVE BY MOUTH DAILY 4) Non-VA FISH OIL 500MG DHA/EPA CAP,ORAL 1200 MG BY ACTIVE MOUTH DAILY 5) Non-VA GLUCOSAMINE/CHONDROITIN CAP/TAB 1 TABLET BY ACTIVE MOUTH DAILY 9 Total Medications ALLERGIES: ATORVASTATIN VITALS (most recent, as listed in the electronic record): B/P: 119/79 (09/24/2023 08:55) Pulse: 68 (09/24/2023 08:55) Temperature: 97.3 F [36.3 C] (09/24/2023 08:55) Weight: 233 lb [105.69 kg] (09/24/2023 08:55) Height: 71 in [180.3 cm] (09/02/2022 08:44) BMI: BMI: 32.6 PERTINENT LABS: HEMOGLOBIN A1C TREND Collection DT Spec HGBA1c 08/28/2022 07:36 BLOOD 5.3 03/22/2021 08:28 BLOOD 5.3 03/30/2020 08:18 BLOOD 5.4 11/08/2019 08:42 BLOOD 5.7 H 08/17/2018 14:01 BLOOD 5.6 (-) Smoker (never) Current Rx with last BCVA: OD: +1.00 sph 20/20 OS: +1.00 sph 20/20 Add: +2.50 Comp: +1.50 DVA ( )sc ( x )cc - [x]phoropter []specs []CL OD: 20/15- OS: 20/15 Entrance Testing: Pupil: PERRL (-)APD EOM: SAFE OU, (-)Pain/Diplopia CVF: FTFC OU SLE: Lids/Lashes: dermatochalasis OU Conjunctiva: white and quiet bulbar conj OU quiet palpebral conj OU Corneas: tr arcus OU Iris: flat and clear OU AC: D & Q OU Angles: 4x4 OU TAP @ 1:07pm OD 13 mmHg OS 13 mmHg [x]Gómez []iCare []GAT Last IOP: OD: 15 OS: 15 Dilating Drops: 1GTT 1 % Tropicamide OU [...] their ability to perform those activities safely. Dilated Fundus Exam: Vit: syneresis OU, PVD OS Lens: 2+ NSC OU, tr+ ACC OU C/D (Size and Rim Description) OD 0.35 pink and healthy OS 0.40 pink and healthy PPole OD clear OS clear Macula OD flat and clear OS flat and clear A/V: normal caliber OU Periphery: flat and intact (-)holes, tears, detachments 360 OU window defect S/T OD Assessment/Plan: 1. Posterior vitreous detachment OS with floaters remaining and flashes stopped 2 days ago. Initial symptoms started ~2 months ago. Retina flat and intact 360 -Pt ed re today's findings and s/s RD and to RTC stat if noted - repeated back the plan and education. -Monitor 2. Combined Cataracts OU - not visually significant at present -Pt ed re today's findings and the importance of UV protection -Pt ed cataracts may cause reduction of BCVA and symptoms of glare -RTC sooner if vision declines or interferes with ADLs - repeated back the plan and education. -Monitor 3. Refractive Error and Presbyopia OU -CPM -Monitor RTC as previously scheduled or earlier PRN Glasses adjusted/repaired in office: () Yes (x) No If yes, how many pairs: Medication Reconciliation: Outpatient: Has the patient been taking medications as documented in the EMLR? YES: The patient has been taking medications as documented in the EMLR. Essential Medication List for Review used to complete this medication reconciliation. INCLUDED IN THIS LIST: Alphabetical list of active outpatient prescriptions dispensed from this [facility] (local) and dispensed from another [place] or [place] facility (remote) as well as [...] Remote Allergy/ADR Data available for this patient [facility] ATORVASTATIN Med. Reconciliation (Tool #1) INCLUDED IN THIS LIST: Alphabetical list of active outpatient prescriptions dispensed from this [facility] (local) and dispensed from another [place] or [place] facility (remote) as well as inpatient orders (local pending and active), local clinic medications, locally documented non-VA medications, and local prescriptions that have or been discontinued in the past 90 days. Non-VA Meds Last Documented On: Aug 29, 2021 NOTE The display of VA prescriptions dispensed from another VA or DoD facility (remote) is limited to active outpatient prescription entries matched to National Drug File at the originating site and may not include some items such as investigational drugs, compounds, etc. NOT INCLUDED IN THIS LIST: Medications self-entered by the patient into personal health records (i.e. [employer]) are NOT included in this list. Non-VA medications documented outside this [place], remote inpatient orders (regardless of status) and remote clinic medications are NOT included in this list. The patient and provider must always discuss medications the patient is taking, regardless of where the medication was dispensed or obtained. Non-VA ACETAMINOPHEN TAB TAKE BY MOUTH OUTPT ALBUTEROL 90MCG (CFC-F) 200D ORAL INHL (Status = ) INHALE 2 PUFFS BY MOUTH EVERY 6 HOURS NEEDED FOR BRONCHOSPASM PREVENTION Rx# [id number] Last Released: 06/25/23 Qty/Days Supply: 03/10 Rx Expiration Date: 09/03/23 Refills Remainin Indication: FOR BRONCHOSPASM PREVENTION Non-VA ASPIRIN 81MG EC TAB TAKE ONE TABLET BY MOUTH DAILY OUTPT BUDESONIDE 160/FORMOTER 4.5MCG 120D INH (Status = ) INHALE 2 PUFFS BY MOUTH TWICE DAILY - RINSE MOUTH AFTER USE Rx# [id number] Last Released: 12/04/22 Qty/Days Supply: 03/10 Rx Expiration Date: 09/03/23 Refills Remainin OUTPT BUDESONIDE 160/FORMOTER 4.5MCG 120D INH (Status = Pending) 160/FORMOTER 4.5MCG 120D INH INHALE 2 PUFFS BY MOUTH TWICE DAILY - RINSE MOUTH AFTER USE Renewed from Rx# [id number] Qty/Days Supply: Login Date: 09/24/23 Refills Ordered: 3 Non-VA CHOLECALCIF 50MCG (D3-2,000UNIT) TAB TAKE ONE TABLET BY MOUTH DAILY OUTPT DICLOFENAC NA 1% TOP GEL (Status = ) APPLY 4 GRAMS TOPICALLY FOUR TIMES A DAY FOR OSTEOARTHRITIS - USE DOSING CARD PROVIDED IN BOX Rx# [id number] Last Released: 09/02/22 Qty/Days Supply: Rx Expiration Date: 09/03/23 Refills Remainin Indication: FOR OSTEOARTHRITIS OUTPT EZETIMIBE 10MG TAB (Status = Discontinued) TAKE ONE TABLET BY MOUTH ONCE DAILY TO LOWER CHOLESTEROL Rx# [id number] Last Released: 07/02/23 Qty/Days Supply: Rx Expiration Date: 09/03/23 Refills Remainin Indication: FOR HIGH CHOLESTEROL OUTPT EZETIMIBE 10MG TAB (Status = Active) TAKE ONE TABLET BY MOUTH ONCE DAILY TO LOWER CHOLESTEROL Rx# [id number] Last Released: 09/25/23 Qty/Days Supply: Rx Expiration Date: 09/24/24 Refills Remainin Indication: FOR HIGH CHOLESTEROL Non-VA FISH OIL 500MG DHA/EPA CAP,ORAL TAKE 1200 MG BY MOUTH DAILY Non-VA GLUCOSAMINE/CHONDROITIN CAP/TAB TAKE ONE TABLET BY MOUTH DAILY OUTPT METOPROLOL SUCCINATE 25MG SA TAB (Status = Discontinued) TAKE ONE TABLET BY MOUTH ONCE DAILY FOR BLOOD PRESSURE/HEART Rx# [id number] Last Released: 07/02/23 Qty/Days Supply: Rx Expiration Date: 09/03/23 Refills Remainin OUTPT METOPROLOL SUCCINATE 25MG SA TAB (Status = Active) TAKE ONE TABLET BY MOUTH ONCE DAILY FOR BLOOD PRESSURE/HEART Rx# [id number] Last Released: 09/25/23 Qty/Days Supply: Rx Expiration Date: 09/24/24 Refills Remainin OUTPT THIAMINE 50MG TAB (Status = Active) TAKE ONE TABLET BY MOUTH ONCE DAILY FOR DEFICIENCY IN THIAMINE OR VITAMIN B1 Rx# [id number] Last Released: 06/25/23 Qty/Days Supply: Rx Expiration Date: 03/11/24 Refills Remainin Indication: FOR DEFICIENCY IN THIAMINE OR VITAMIN B1 SUPPLIES PHARMACY TERMS AND POSSIBLE PATIENT ACTIONS INPT = [place] inpatient order IV = [place] intravenous medication OUTPT = [place] outpatient prescription PHARMACY POSSIBLE PATIENT TERMS EXPLANATION ACTIONS -------- ----- ACTIVE A prescription that can be If you have refills, filled at the local [facility] pharmacy. you may request a refill of this prescription from your VA pharmacy. CLINIC A medication you received during If you have questions a visit to a VA clinic or about this medication emergency department. contact your VA healthcare team. DISCONTINUED A prescription your provider has Contact your VA stopped. It is no longer healthcare team if you available to be sent to you or need more of this picked up at the [place] pharmacy medication. window. A prescription which is [...] the VA. Or, it may be an [id number] (OTC), herbal, dietary supplements or sample medication. [...] before this medication now. you run out. 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
--- OUTSIDE RECORDS SUMMARY | 2024-02-16 09:12 | XMS_ITS | Encounter Summary ---
Author Name [facility] [place] Address [address] [place] [address] Care Team Providers Care Linotype Worker Name Role Phone SUBHA VELAZQUEZ Primary [...] Relationship to Policy Bryson GREGORY PUGA-MANI R [place] SPECIAL CLASS GREGORY DIOP Sep 15, 2011 GREGORY PUGA [id number] [phone] PAULA GONZALES PATIENT [facility] MEDICARE SUPPLEMEN [facility] STATE AGENC Y Aug 09, 2017 [id number] [phone] PAULA GONZALES PATIENT [facility] MEDICARE SUPPLEMEN [facility] SUPP [facility] Aug 09, 2017 [id number] PAULA GONZALES PATIENT MEDICARE (WNR) MEDICARE (M) PART A Nov 10, 2019 PART A [id number] PAULA GONZALES PATIENT MEDICARE (WNR) MEDICARE (M) PART B Apr 09, 2010 PART B [id number] PAULA GONZALES PATIENT MEDICARE (WNR) MEDICARE (M) PART B Apr 09, 2010 PART B [id number] PAULA GONZALES PATIENT MEDICARE (WNR) MEDICARE (M) PART B Apr 09, 2010 PART B [id number] PAULA GONZALES PATIENT MEDICARE (WNR) MEDICARE (M) PART A Nov 09, 2009 PART A [id number] [phone] [id number] PAULA GONZALES PATIENT MEDICARE (WNR) MEDICARE (M) PART A Nov 09, 2009 PART A [id number] [phone] PAULA GONZALES PATIENT Selected Encounter This section includes the information on record at [place] for the Encounter. Date/Time Encounter Type Encounter Description Reason Provider Source Sep 24, 2023 09:52 AM ELECTROCARDIOGRAM REPORT EKG ICD-10-CM Z13.6 Encounter for screening for cardiovascular disorders AUGUSTUS GILBERT Mikhail Encounter Template Text not used by [place] Assessments - Encounter Diagnoses This section includes the primary and secondary diagnoses documented for the Encounter. Date/Time Primary/Secondary Diagnosis Diagnosis Name Provider Source Sep 25, 2023 03:04 PM PRIMARY Encounter for screening for cardiovascular disorders JESUS AGUILAR [facility] Plan of Treatment: Future Appointments (+ 6 months) and Future Tests (+/- 45 days) The Plan of Treatment section includes future care activities for the [facility] [place] [facility] This section includes future appointments and future orders which are active, pending or scheduled. Future Appointments This section includes appointments that were scheduled to occur 6 months from the date of the Encounter, up to a maximum of 20 appointments. The data comes from all [place] treatment facilities. Appointment Date/Time Appointment Type Appointme nt Facility Name Sep 25, 2023 01:00 PM AMBULATORY - MEDICINE [facility] [place] [facility] Sep 29, 2023 01:00 PM AMBULATORY - PSYCHIATRY [place] [facility] [place] [facility] Oct 13, 2023 08:00 AM AMBULATORY - MEDICINE [facility] [place] [facility] Oct 13, 2023 01:00 PM [facility] [place] [facility] Oct 14, 2023 08:00 AM AMBULATORY - MEDICINE [facility] [place] [facility] Oct 20, 2023 01:00 PM AMBULATORY - PS[facility]CHIATRY [facility] [place] [facility] Oct 27, 2023 01:00 PM AMBULATORY - PS[facility]CHIATRY [facility] [place] [facility] Nov 03, 2023 01:00 PM AM[facility] [place] [facility] Nov 05, 2023 09:00 AM AMBULATORY - REHAB MEDICIN [facility] [place] [facility] Nov 05, 2023 12:00 PM AMBULATORY - MEDICINE [facility] [place] [facility] Nov 10, 2023 01:00 PM AMBULATORY - PSYCHIATRY [facility] [place] [facility] Nov 17, 2023 01:00 PM AMBULATORY - PSYCHIATRY [facility] [place] [facility] Dec 01, 2023 01:00 PM AMBULATORY - PSYCHIATRY [facility] [place] [facility] Dec 08, 2023 09:00 AM AMBULATORY - MEDICINE [facility] [place] [facility] Dec 08, 2023 09:01 AM AM[place]UL[place]ORY [place]IC[place] [facility] Dec 08, 2023 01:00 PM AMBULATORY - PSYCHIATRY [place] [facility] [place] [facility] Dec 15, 2023 09:00 AM AMBULATORY - NONE [facility] [place] [facility] Dec 15, 2023 01:00 PM AMBULATORY - PSYCHIATRY [facility] [place] [facility] Dec 29, 2023 04:00 PM AMBULATORY - PSYCHIATRY [facility] [place] [facility] Jan 05, 2024 04:00 PM AMBULATORY - PSYCHIATRY [facility] [place] [facility] Lab Results: +/- 30 days of the encounter This section includes the Chemistry and Hematology Lab Results on record with [place] for the patient. Radiology Reports and Pathology Reports are provided separately, in subsequent sections. Lab Results This section contains the Chemistry/Hematology Results that were resulted 30 days before or 30 daysafter the date of the Encounter. Date/Time Source Result Type Result - Unit Interpretation Reference Range Comment Sep 17, 2023 07:56 AM [facility] [place] [facility] LIPID PANEL FASTING Specimen Type: SERUM No comment entered. Ordering Provider: SUBHA VELAZQUEZ Report Released Date/Time: May 21, 2023 03:02 PM Reporting Lab: [place] [facility] [place] [facility] [address] [address] Performing Lab: [facility] [address] [address] CHOLESTEROL 208 mg/dL H TRIGLYCERIDE 154 mg/dL H 0-150 LDL calculated 139 mg/dL H 0-129 CHOL/HDL 5.5 HDL CHOLESTEROL 38 mg/dL L 40-60 Sep 17, 2023 07:56 AM [facility] BASIC METABOLIC PANEL (non-fasting) Specimen Type: SERUM No comment entered. Ordering Provider: SUBHA VELAZQUEZ Report Released Date/Time: May 21, 2023 03:02 PM Reporting Lab: [address] [address] Performing Lab: [address] [address] UREA NITROGEN 30 mg/dL H 7-25 GLUCOSE 93 mg/dL 65-100 SODIUM 139 mmol/L 135-145 POTASSIUM 4.3 mmol/L 3.5-5.0 CHLORIDE 106 mmol/L 100-110 CO2 26 meq/L 20-30 CREATININE, Serum 0.99 mg/dL 0.50-1.40 eGFR(CKD-EPI 2020) 77 mL/min >60 Advance Directives: All historical and current Section Date Range: From patient's date of to the date document was created. This section includes ALL of a patient's completed or amended [place] Advance and Rescinded Directives. The entries below indicate that a directive exists for the patient, but an actual copy is not included with this document. The data comes from all [place] facilities. Date Advance Directives Provider Source Nov 08, 2019 ADVANCE DIRECTIVE MIGDALIA MILES [facility] Apr 14, 2019 ADVANCE DIRECTIVE RAFAL BULLARD [facility] Encounter Notes: All associated encounter notes This section contains the clinical notes associated to the Encounter. Date/Time Encounter Note(s) Provider Source Sep 25, 2023 03:03 PM CARDIOLOGY PROCEDU RE NOTE: LOCAL TITLE: EKG OUTPATIENT RESULT STANDARD TITLE: CARDIOLOGY PROCEDURE NOTE DATE OF NOTE: SEP 25, 2023@15:03 ENTRY DATE: SEP 25, 2023@15:04:19 AUTHOR: JESUS AGUILAR EXP COSIGNER: URGENCY: STATUS: COMPLETED An EKG was done on: Sep Please see [facility] for the EKG result. /rosio/ JESUS AGUILAR LIFE UNDERWRITER Signed: 09/25/2023 15:05 [facility]AR [facility]
--- OUTSIDE RECORDS SUMMARY | 2024-02-16 09:12 | XMS_ITS | Encounter Summary ---
Author Name [facility] [place] [facility] [place] Address [address] [place] [address] Care Team Providers Care Straightedge Worker Name Role Phone SUBHA VELAZQUEZ Primary [...] Relationship to Policy Bryson GREGORY PUGA-WN R [place] SPECIAL CLASS GREGORY DIOP Sep 15, 2011 GREGORY PUGA [id number] PAULA GONZALES PATIENT [facility] MEDIC[facility] SUPPLEMEN [place] [employer] Aug 09, 2017 [id number] PAULA GONZALES PATIENT [facility] MEDICARE SUPPLEMEN [place] PENDING SALE TO [facility] Aug 09, 2017 [id number] [phone] PAULA GONZALES PATIENT MEDICARE (WNR) MEDICARE (M) PART A Nov 10, 2019 PART A [id number] PAULA GONZALES PATIENT MEDICARE (WNR) MEDICARE (M) PART B Apr 09, 2010 PART B [id number] PAULA GONZALES PATIENT MEDICARE (WNR) MEDICARE (M) PART B Apr 09, 2010 PART B [id number] [id number] PAULA GONZALES PATIENT MEDICARE (WNR) MEDICARE (M) PART B Apr 09, 2010 PART B [id number] PAULA GONZALES PATIENT MEDICARE (WNR) MEDICARE (M) PART A Nov 09, 2009 PART A [id number] PAULA GONZALES PATIENT MEDICARE (WNR) MEDICARE (M) PART A Nov 09, 2009 PART A [id number] PAULA GONZALES PATIENT Selected Encounter This section includes the information on record at [place] for the Encounter. Date/Time Encounter Type Encounter Description Reason Pro vider Source Sep 24, 2023 04:00 PM Outpatient Encounter OPTOMETRY IHE Encounter Template Text not used by [place] Plan of Treatment: Future Appointments (+ 6 months) and Future Tests (+/- 45 days) The Plan of Treatment section includes future care activities for the patient from all [place] [facility] This section includes future appointments and future orders which are active, pending or scheduled. Future Appointments This section includes appointments that were scheduled to occur 6 months from the date of the Encounter, up to a maximum of 20 appointments. The data comes from all [place] treatment facilities. Appointment Date/Time Appointment Type Appointme nt Facility Name Sep 25, 2023 01:00 PM AMBULATORY - MEDICINE [facility] [place] [facility] Sep 29, 2023 01:00 PM AMBULATORY - PSYCHIATRY [place] [facility] [place] [facility] Oct 13, 2023 08:00 AM AMBULATORY - MEDICINE [facility] [place] [facility] Oct 13, 2023 01:00 PM AMBULATORY - PSYCHIATRY [place] [facility] [place] [facility] Oct 14, 2023 08:00 AM AMBULATORY - MEDICINE [facility] [place] [facility] Oct 20, 2023 01:00 PM AMBULATORY - PSYCHIATRY [place] [facility] [place] [facility] Oct 27, 2023 01:00 PM AMBULATORY - PSYCHIATRY [place] [facility] [place] [facility] Nov 03, 2023 01:00 PM AMBULATORY - PSYCHIATRY [place] [facility] [place] [facility] Nov 05, 2023 09:00 AM AMBULATORY - REHAB MEDICIN E [place] [facility] [place] [facility] Nov 05, 2023 12:00 PM AMBULATORY [...] - MEDICINE [facility] [place] [facility] Dec 08, 2023 09:01 AM AM[place]UL[place]ORY - [place]ICINE [place] [facility] Dec 08, 2023 01:00 PM AMBULATORY - PSYCHIATRY [place] [facility] [place] [facility] Dec 15, 2023 09:00 AM AMBULATORY - NONE [place] [facility] [place] [facility] Dec 15, 2023 01:00 PM AMBULATORY - PSYCHIATRY [facility] [place] [facility] Dec 29, 2023 04:00 PM AMBULATORY - PSYCHIATRY [facility] [place] [facility] Jan 05, 2024 04:00 PM AMBULATORY - PSYCHIATRY [place] [facility] [place] [facility] Lab Results: +/- 30 days of the encounter This section includes the Chemistry and Hematology Lab Results on record with [place] for the patient. Radiology Reports and Pathology Reports are provided separately, in subsequent sections. Lab Results This section contains the Chemistry/Hematology Results that were resulted 30 days before or 30 daysafter the date of the Encounter. Date/Time Source Result Type Result - Unit Interpretation Reference Range Comment Sep 17, 2023 07:56 AM [place] [facility] [place] [facility] LIPID PANEL FASTING Specimen Type: SERUM No comment entered. Ordering Provider: SUBHA VELAZQUEZ Report Released Date/Time: May 21, 2023 03:02 PM Reporting Lab: [facility] [address] [address] Performing [facility]: [facility] [address] CHOLESTEROL 208 mg/dL H TRIGLYCERIDE 154 mg/dL H 0-150 LDL calculated 139 mg/dL H 0-129 CHOL/HDL 5.5 HDL CHOLESTEROL 38 mg/dL L 40-60 Sep 17, 2023 07:56 AM [facility] BASIC METABOLIC PANEL (non-fasting) Specimen Type: SERUM No comment entered. Ordering Provider: SUBHA VLEAZQUEZ Report Released Date/Time: May 21, 2023 03:02 PM Reporting Lab: [address] [address] Performing Lab: [facility] [address] [address] UREA NITROGEN 30 mg/dL H 7-25 GLUCOSE [...] and tobacco- related health factors from the [place] facility where the Encounter took place. Current Smoking Status This section includes the most current smoking, or tobacco-related health factor, from the [place] facility where the Encounter took place. Date/Time Current Smoking Status Comment Louisa koenig May 19, 2023 01:00 PM VA-TOBACCO NEVER USED [facility] Tobacco Use History This section includes a history of the smoking, or tobacco-related health factors, that were collected on or before the date of the Encounter. The data comes from the [place] facility where the Encounter took place. Date/Time Smoking Status/Tobacco Use Comment Gisele villalobos June 17, 2022 01:00 PM VA-TOBACCO NEVER USED [facility] Jul 16, 2021 01:00 PM VA-TOBACCO NEVER USED [facility] [place] [facility] July 03, 2020 01:00 PM VA-TOBACCO NEVER USED [facility] [place] [facility] Jul 11, 2019 02:57 PM VA-TOBACCO NEVER USED [facility] [place] [facility] Jan 14, 2019 08:50 AM VA-TOBACCO NEVER USED [facility] [place] [facility] Mar 04, 2018 01:20 PM VA-TOBACCO NEVER USED [facility] [place] [facility] May 27, 2017 11:01 AM LIFETIME NON-TOBACCO USER [facility] [place] [facility] May 20, 2016 10:51 AM LIFETIME NON-TOBACCO USER [facility] [place] [facility] May 03, 2015 01:13 PM LIFETIME NON-TOBACCO USER [facility] [place] [facility] Advance Directives: All historical and current Section Date Range: From patient's date of to the date document was created. This section includes ALL of a patient's completed or amended [place] Advance and Rescinded Directives. The entries below indicate that a directive exists for the patient, but an actual copy is not included with this document. The data comes from all [place] facilities. Date Advance Directives Provider Source Nov 08, 2019 ADVANCE DIRECTIVE MIGDALIA MILES [place] [facility] [place] [facility] Apr 14, 2019 ADVANCE DIRECTIVE RAFAL BULLARD [place] [facility] [place] [facility] Encounter Notes: All associated encounter notes This section contains the clinical notes associated to the Encounter. Date/Time Encounter Note(s) Provider Source Sep 24, 2023 04:41 PM ADDENDUM: LOCAL TITLE: Addendum STANDARD TITLE: ADDENDUM DATE OF NOTE: SEP 24, 2023@16:41:47 ENTRY DATE: SEP 24, 2023@16:41:47 AUTHOR: CELSA FELIPE EXP COSIGNER: URGENCY: STATUS: COMPLETED Dr. Allen offered overbook for Sunday 09/24 at 1:00pm which pt accepted /rosio/ CELSA FELIPE OD Mine Development Engineer Signed: 09/25/2023 08:22 Receipt Acknowledged By: 09/25/2023 09:14 /fay MALDONADO ADVANCED PRINCIPAL WEB DEVELOPER === --- Original Document --- 09/24/23 TELEPHONE NOTE/SPECIALTY CLINIC: came into office today stating that hes been having floaters for the past couple of monthz and its been bothering him. Asked for a message to go through to Dr. Gibbons. Wondering if he would be able to see her for an appointment for this issue. Primary phone in chart confirmed. Please advise on scheduling. /rosio/ SHELIA MALDONADO ADVANCED PRINCIPAL WEB DEVELOPER Signed: 09/24/2023 16:08 Receipt Acknowledged By: 09/24/2023 16:35 /fay FELIPE OD Mine Development Engineer for CLARE GIBBONS 09/24/2023 ADDENDUM STATUS: COMPLETED spoke to patient - he reports a black bug in his left eye for about 2-4 weeks. Also notes white streaks across vision in left eye only in the dark or a dimly lit room for about the same length of time. No flashes during the day. Normal acuity and peripheral vision. Recommend that he is seen for exam - will discuss with providers who are here tomorrow and Thursday and call him back in the morning with a plan - pt agrees with this plan. /fay FELIPE OD Mine Development Engineer Signed: 09/24/2023 16:41 09/25/2023 ADDENDUM STATUS: UNSIGNED You may not VIEW this UNSIGNED Addendum. CELSA FELIPE [place] [facility] [place] [facility] Sep 24, 2023 04:00 PM TELEPHONE ENCOUNTE R NOTE: LOCAL TITLE: TELEPHONE NOTE/SPECIALTY CLINIC STANDARD TITLE: TELEPHONE ENCOUNTER NOTE DATE OF NOTE: SEP 24, 2023@16:00 ENTRY DATE: SEP 24, 2023@16:00:37 AUTHOR: SHELIA MALDONADO EXP COSIGNER: URGENCY: STATUS: COMPLETED TELEPHONE NOTE/SPECIALTY CLINIC Has ADDENDA came into office today stating that hes been having floaters for the past couple of monthz and its been bothering him. Asked for a message to go through to Dr. Gibbons. Wondering if he would be able to see her for an appointment for this issue. Primary phone in chart confirmed. Please advise on scheduling. /fay MALDONADO ADVANCED PRINCIPAL WEB DEVELOPER Signed: 09/24/2023 16:08 Receipt Acknowledged By: 09/24/2023 16:35 /fay FELIPE OD Mine Development Engineer for LC[facility] GIBBONS 09/24/2023 ADDENDUM STATUS: COMPLETED spoke to patient - he reports a black bug in his left eye for about 2-4 weeks. Also notes white streaks across vision in left eye only in the dark or a dimly lit room for about the same length of time. No flashes during the day. Normal acuity and peripheral vision. Recommend that he is seen for exam - will discuss with providers who are here tomorrow and Thursday and call him back in the morning with a plan - pt agrees with this plan. /fay FELIPE OD Mine Development Engineer Signed: 09/24/2023 16:41 09/24/2023 ADDENDUM STATUS: COMPLETED Dr. Allen offered overbook for Sunday 09/24 at 1:00pm which pt accepted /fay FELIPE OD Mine Development Engineer Signed: 09/25/2023 08:22 Receipt Acknowledged By: 09/25/2023 09:14 /fay MALDONADO ADVANCED PRINCIPAL WEB DEVELOPER 09/25/2023 ADDENDUM STATUS: COMPLETED is all set and scheduled /fay MALDONADO ADVANCED PRINCIPAL WEB DEVELOPER Signed: 09/25/2023 09:14 SHELIA MALDONADO [place] [facility]
--- OUTSIDE RECORDS SUMMARY | 2024-02-16 09:12 | XMS_ITS | Encounter Summary ---
Author Name [facility] [place] [facility] [place] Address [address] [place] [address] Care Team Providers Care Garment Manufacturing Supervisor Name Role Phone SUBHA VELAZQUEZ Primary [...] Relationship to Policy Bryson GREGORY PUGA-WN R CT SPECIAL CLASS GREGORY DIOP Sep 15, 2011 GREGORY PUGA [id number] PAULA GONZALES PATIENT [facility] [place] MEDICARE SUPPLEMEN [facility] Aug 09, 2017 [id number] PAULA GONZALES PATIENT [facility] [place] MEDICARE SUPPLEMEN MARIA ELENA [facility] Aug 09, 2017 [id number] PAULA GONZALES PATIENT MEDICARE (WNR) MEDICARE (M) PART A Nov 10, 2019 PART A [id number] PAULA GONZALES PATIENT MEDICARE (WNR) MEDICARE (M) PART B Apr 09, 2010 PART B [id number] PAULA GONZALES PATIENT MEDICARE (WNR) MEDICARE (M) PART B Apr 09, 2010 PART B [id number] PAULA GONZALES PATIENT MEDICARE (WNR) MEDICARE (M) PART B Apr 09, 2010 PART B [id number] PAULA GONZALES PATIENT MEDICARE (WNR) MEDICARE (M) PART A Nov 09, 2009 PART A [id number] PAULA GONZALES PATIENT MEDICARE (WNR) MEDICARE (M) PART A Nov 09, 2009 PART A [id number] PAULA GONZALES PATIENT Selected Encounter This section includes the information on record at CT for the Encounter. Date/Time Encounter Type Encounter Description Reason Provider Source Sep 29, 2023 01:00 PM PSYTX W PT 45 MINUTES [facility] - IND ICD-10-CM F43.10 Post-traumatic stress disorder, unspecified NATHAN KIRK Mikhail Encounter Template Text not used by CT Assessments - Encounter Diagnoses This section includes the primary and secondary diagnoses documented for the Encounter. Date/Time Primary/Secondary Diagnosis Diagnosis Name Provider Source Oct 02, 2023 09:46 PM PRIMARY Post-traumatic stress disorder, unspecified [facility] Plan of Treatment: Future Appointments (+ 6 months) and Future Tests (+/- 45 days) The Plan of Treatment section includes future care activities for the patient from all CT treatmentfacilities. This section includes future appointments and future orders which are active, pending or scheduled. Future Appointments This section includes appointments that were scheduled to occur 6 months from the date of the Encounter, up to a maximum of 20 appointments. The data comes from all CT treatment facilities. Appointment Date/Time Appointment Type Appointme nt Facility Name Oct 13, 2023 08:00 AM AMBULATORY - MEDICINE [facility] [place] [facility] Oct 13, 2023 01:00 PM AMBULATORY - PSYCHIATRY [facility] [place] [place] [facility] Oct 14, 2023 08:00 AM AMBULATORY - MEDICINE [facility] [place] [facility] Oct 20, 2023 01:00 PM [facility] [place] [facility] Oct 27, 2023 01:00 PM AMBULATORY [...] 09:01 AM AMBULATORY - MEDICINE [place] [facility] Dec 08, 2023 01:00 PM AMBULATORY - PS[facility]CHIATRY [facility] [place] [facility] Dec 15, 2023 09:00 AM AMBULATORY - NONE [facility] [place] [facility] Dec 15, 2023 01:00 PM AMBULATORY - PSYCHIATRY [facility] [place] [facility] Dec 29, 2023 04:00 PM AMBULATORY - PSYCHIATRY [facility] [place] [facility] Jan 05, 2024 04:00 PM AMBULATORY - PSYCHIATRY [facility] [place] [facility] Jan 26, 2024 04:00 PM AMBULATORY - PSYCHIATRY [facility] [place] [facility] Feb 09, 2024 04:00 PM AMBULATORY - PSYCHIATRY [facility] [place] [facility] Lab Results: +/- 30 days [...] 2023 07:56 AM [facility] [facility] LIPID PANEL FASTING Specimen Type: SERUM No comment entered. Ordering Provider: SUBHA VELAZQUEZ Report Released Date/Time: May 21, 2023 03:02 PM Reporting Lab: [facility] [address] [address] Performing Lab: [address] [address] CHOLESTEROL 208 mg/dL H TRIGLYCERIDE 154 mg/dL H 0-150 LDL calculated 139 mg/dL H 0-129 CHOL/HDL 5.5 HDL CHOLESTEROL 38 mg/dL L 40-60 Sep 17, 2023 07:56 AM [facility] BASIC METABOLIC PANEL (non-fasting) Specimen Type: SERUM No comment entered. Ordering Provider: SUBHA VELAZQUEZ Report Released Date/Time: May 21, 2023 03:02 PM Reporting Lab: [address] [address] Performing Lab: [address] [address] UREA NITROGEN 30 mg/dL H 7-25 GLUCOSE [...] and tobacco- related health factors from the CT facility where the Encounter took place. Current Smoking Status This section includes the most current smoking, or tobacco-related health factor, from the [place] facility where the Encounter took place. Date/Time Current Smoking Status Comment Louisa koenig May 19, 2023 01:00 PM VA-TOBACCO NEVER USED [facility] Tobacco Use History This section includes a history of the smoking, or tobacco-related health factors, that were collected on or before the date of the Encounter. The data comes from the [place] facility where the Encounter took place. Date/Time Smoking Status/Tobacco Use Comment Gisele villalobos June 17, 2022 01:00 PM VA-TOBACCO NEVER USED [facility] Jul 16, 2021 01:00 PM VA-TOBACCO NEVER USED VA [facility] [place] [facility] July 03, 2020 01:00 PM VA-TOBACCO NEVER USED [facility] [place] [facility] Jul 11, 2019 02:57 PM VA-TOBACCO NEVER USED VA [facility] [place] [facility] Jan 14, 2019 08:50 AM VA-TOBACCO NEVER USED VA [facility] [place] [facility] Mar 04, 2018 01:20 PM VA-TOBACCO NEVER USED VA [facility] [place] [facility] May 27, 2017 11:01 AM LIFETIME NON-TOBACCO USER [facility] [place] [facility] May 20, 2016 10:51 AM LIFETIME NON-TOBACCO USER [facility] [place] [facility] May 03, 2015 01:13 PM LIFETIME NON-TOBACCO USER [facility] [place] [facility] Advance Directives: All historical and current Section Date Range: From patient's date of to the date document was created. This section includes ALL of a patient's completed or amended CT Advance and Rescinded Directives. The entries below indicate that a directive exists for the patient, but an actual copy is not included with this document. The data comes from all CT facilities. Date Advance Directives Provider Source Nov 08, [address] AD[address] [facility] [place] [facility] Apr 14, 2019 AD[address]AL [address]ARD [address] C [facility]TRL [place] [facility] Encounter Notes: All associated encounter notes This section contains the clinical notes associated to the Encounter. Date/Time Encounter Note(s) Provider Source Sep 29, 2023 01:38 PM MENTAL HEALTH DIAG NOSTIC STUDY NOTE: LOCAL TITLE: MENTAL HEALTH DIAGNOSTIC STUDY STANDARD TITLE: MENTAL HEALTH DIAGNOSTIC STUDY NOTE DATE OF NOTE: SEP 29, 2023@13:38:34 ENTRY DATE: SEP 29, 2023@13:38:34 AUTHOR: NATHAN KIRK EXP COSIGNER: URGENCY: STATUS: COMPLETED These assessments were completed by PRASANTH GONZALES via provider direct entry on 09/29/2023 1:37:30 PM. PTSD CHECKLIST (PCL-5) - WEEKLY Patient reported being bothered by the following over the past week: 1. Disturbing memories: A little bit 2. Disturbing dreams: Not at all 3. Re-experiencing events: Not at all 4. Cued distress: A little bit 5. Cued physical symptoms: A little bit 6. Avoiding internal reminders: A little bit 7. Avoiding external reminders: A little bit 8. Trouble with recall: Not at all [...] Not at all 18. Feeling easily startled: A little bit 19. Difficulty concentrating: Not at all 20. Trouble sleeping: Not at all PCL-5 total score = 7 This measure [...] PCL-5 Weekly Total Score (past 180 days): 09/29/2023 7 09/15/2023 4 09/01/2023 7 08/11/2023 9 06/30/2023 10 05/19/2023 9 04/07/2023 3 /rosio/ NATHAN KIRK, Ph.D Clinical Psychologist Signed: 09/29/2023 23:[address] [facility] [place] [facility] Sep 29, 2023 01:04 PM TELEHEALTH NOTE: LOCAL TITLE: CT VIDEO CONNECT PSYCHOLOGY NOTE STANDARD TITLE: TELEHEALTH NOTE DATE OF NOTE: SEP 29, 2023@13:04 ENTRY DATE: SEP 29, 2023@13:04:22 AUTHOR: NATHAN KIRK EXP COSIGNER: URGENCY: STATUS: COMPLETED VA Video Connect (VVC) Standard Documentation VVC Clinician Resources Only: E911 (Emergency Call Relay Center): [phone] National [employer] Crisis Line - 988 then press #1. CW Suicide Coordinator [phone], Ext. [phone]; Back-up Ext. [phone] Police, [place] JOSHUA [phone] Introduction: Visit is being conducted by CT [employer]. identified with 2 identifiers: [X] Full Name [ ] Date of [ ] VA ID Card [X] Visual Recognition Emergency Plan: Edwards confirmed and/or provided the following information in case of emergency or technology failure. PATIENT PHONE - PHONE NUMBER [CELLULAR] - Is patient phone number correct, if not, enter below: 's phone number: PRASANTH GONZALES [address], [place], [address] Edwards's present location and address for appointment: [address] [place] [address]. [place] [address] Edwards's emergency contact name and phone number: Layla Jung Edwards reported that location is private and safe: Yes Informed Consent: informed of the risks and benefits of Telehealth video care. Edwards has the right to refuse video services. If refuses video visit, a [id number] visit will be scheduled. 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 Provided [...] began with completion and review of the PCL-5: Score: 7). Session focused on current medical issues, the impact of them on his life, and continuing marital challenges. Edwards shared details regarding struggles with medical issues, searching for answers , and working on S[employer] claims, including and those associated with [employer]. The remainder of the session focused on Edwards's marital challenges. He shared details regarding difficult interactions with his and that she often refuses to talk about important issues, cutting [him] off and dismissing [him] when he wants to have a conversation about things that are important to him. Edwards stated that she will be traveling again from 10/14-10/21 and that he will remain at home and engage in things that are meaningful to him. expressed that couple's therapy would not be helpful , stating that it doesn't work because his is not open to the process. Revisited coping skills and self-care. INTERVENTIONS: Continued goal setting, including, increasing meaningful activities, addressed stressors regarding marital challenges, limit news and triggering television programs, focus on the things he can control, effective communication skills, remain connected with friends and family, relaxation techniques, mindfulness, and self-care. ASSESSMENT: BRIEF ASSESSMENT OF MENTAL STATUS: 1. [...] PLAN FOR FOLLOW-UP: Next session planned for: 10/06/23 at 1:00pm /rosio/ NATHAN IKRK, Ph.D Clinical Psychologist Signed: 10/02/2023 21:46 [facility]
--- OUTSIDE RECORDS SUMMARY | 2024-02-16 09:13 | XMS_ITS ---
Author Name [facility] [place] [facility] [place] Address [address] [place] [address] Care Team Providers Care Stevedore Dock Name Role Phone SUBHA VELAZQUEZ Primary Care [...] GREGORY DIOP Sep 15, 2011 GREGORY PUGA [id number] [phone] PAULA GONZALES PATIENT [facility] [place] MEDICARE SUPPLEMEN [employer] Aug 09, 2017 [id number] PAULA GONZALES PATIENT [facility] [place] MEDICARE SUPPLEMEN [facility] [employer] SUPP PL Aug 09, 2017 [id number] PAULA GONZALES PATIENT MEDICARE (WNR) MEDICARE (M) PART A Nov 10, 2019 PART A [id number] PAULA GONZALES PATIENT MEDICARE (WNR) MEDICARE (M) PART B Apr 09, 2010 PART B [id number] PAULA GNOZALES PATIENT MEDICARE (WNR) MEDICARE (M) PART B Apr 09, 2010 PART B [id number] PAULA GONZALES PATIENT MEDICARE (WNR) MEDICARE (M) PART B Apr 09, 2010 PART B [id number] PAULA GONZALES PATIENT MEDICARE (WNR) MEDICARE (M) PART A Nov 09, 2009 PART A [id number] PAULA GONZALES PATIENT MEDICARE (WNR) MEDICARE (M) PART A Nov 09, 2009 PART A [id number] PAULA GONZALES PATIENT Selected Encounter This section includes the information on record at [place] for the Encounter. Date/Time Encounter Type Encounter Description Reason Pro vider Source Oct 14, 2023 12:00 AM Outpatient Encounter COMMUNITY CARE CONSULT IHE Encounter Template Text not used by [place] Plan of Treatment: Future Appointments (+ 6 months) and Future Tests (+/- 45 days) The Plan of Treatment section includes [facility] care [facility] [place] [facility] This section includes future appointments and future orders which are active, pending or scheduled. Future Appointments This section includes appointments that were scheduled to occur 6 months from the date of the Encounter, up to a maximum of 20 appointments. The data comes from all [place] treatment facilities. Appointment Date/Time Appointment Type Appointme nt Facility Name Oct 20, 2023 01:00 PM AMBULATORY - PSYCHIATRY [place] [facility] [place] [facility] Oct 27, 2023 01:00 PM AMBULATORY - PSYCHIATRY [place] [facility] [place] [facility] Nov 03, 2023 01:00 PM AMBULATORY - PSYCHIATRY [place] [facility] [place] [facility] Nov 05, 2023 09:00 AM AMBULATORY - REHAB MEDICIN E [facility] [place] [facility] Nov 05, 2023 12:00 PM AMBULATORY - MEDICINE [place] [facility] [place] [facility] Nov 10, 2023 01:00 PM AMBULATORY - PSYCHIATRY [place] [facility] [place] [facility] Nov 17, 2023 01:00 PM AMBULATORY - PSYCHIATRY [place] [facility] [place] [facility] Dec 01, 2023 01:00 PM AMBULATORY - PSYCHIATRY [place] [facility] [place] [facility] Dec 08, 2023 09:00 AM AMBULATORY - MEDICINE [facility] [place] [facility] Dec 08, 2023 09:01 AM AMBULATORY - [place]ICINE [place] [facility] Dec 08, 2023 01:00 PM AMBULATORY - PSYCHIATRY [facility] [place] [facility] Dec 15, 2023 09:00 AM AMBULATORY - NONE [facility] [place] [facility] Dec 15, 2023 01:00 PM AMBULATORY - PSYCHIATRY [facility] [place] [facility] Dec 29, 2023 04:00 PM AMBULATORY - PSYCHIATRY [facility] [place] [facility] Jan 05, 2024 04:00 PM AMBULATORY - PSYCHIATRY [facility] [place] [facility] Jan 26, 2024 04:00 PM AMBULATORY - PSYCHIATRY [facility] [place] [facility] Feb 09, 2024 04:00 PM AMBULATORY - PSYCHIATRY [facility] [place] [facility] Feb 16, 2024 09:00 AM AMBULATORY - MEDICINE [facility] [place] [facility] Feb 19, 2024 01:00 PM AMBULATORY - PSYCHIATRY [facility] [place] [facility] Feb 23, 2024 04:00 PM AMBULATORY - PSYCHIATRY [facility] [place] [facility] Lab Results: +/- 30 days of the encounter This section includes the Chemistry and Hematology Lab Results on record with [place] for the patient. Radiology Reports and Pathology Reports are provided separately, in subsequent sections. Lab Results This section contains the Chemistry/Hematology Results that were resulted 30 days before or 30 daysafter the date of the Encounter. Date/Time Source Result Type Result - Unit Interpretation Reference Range Comment Sep 17, 2023 07:56 AM [place] [facility] [facility] LIPID PANEL FASTING Specimen Type: SERUM No comment entered. Ordering Provider: SUBHA VELAZQUEZ Report Released Date/Time: May 21, 2023 03:02 PM Reporting Lab: [facility] [place] [facility] [address] [address] Performing Lab: [facility] [address] [address] CHOLESTEROL 208 mg/dL H TRIGLYCERIDE 154 mg/dL H 0-150 LDL calculated 139 mg/dL H 0-129 CHOL/HDL 5.5 HDL CHOLESTEROL 38 mg/dL L 40-60 Sep 17, 2023 07:56 AM [place] [facility] [place] [facility] BASIC METABOLIC PANEL (non-fasting) Specimen Type: SERUM No comment entered. Ordering Provider: SUBHA VELAZQUEZ Report Released Date/Time: May 21, 2023 03:02 PM Reporting Lab: [facility] [address] [address] Performing Lab: [place] [facility] [place] [facility] [address] [address] UREA NITROGEN 30 mg/dL H 7-25 GLUCOSE [...] 19, 2023 01:00 PM VA-TOBACCO NEVER USED [facility] Tobacco Use History This section includes a history of the smoking, or tobacco-related health factors, that were collected on or before the date of the Encounter. The data comes from the [place] facility where the Encounter took place. Date/Time Smoking Status/Tobacco Use Comment Gisele villalobos June 17, 2022 01:00 PM VA-TOBACCO NEVER USED VA [facility] [place] [facility] Jul 16, 2021 01:00 PM VA-TOBACCO NEVER USED VA [facility] [place] [facility] July 03, 2020 01:00 PM VA-TOBACCO NEVER USED [facility] [place] [facility] Jul 11, 2019 02:57 PM VA-TOBACCO NEVER USED VA [facility] [place] [facility] Jan 14, 2019 08:50 AM VA-TOBACCO NEVER USED VA [facility] [place] [facility] Mar 04, 2018 01:20 PM VA-TOBACCO NEVER USED CO [facility] [place] [facility] May 27, 2017 11:01 AM LIFETIME NON-TOBACCO USER [place] [facility] [place] [facility] May 20, 2016 10:51 AM LIFETIME NON-TOBACCO USER [place] [facility] [place] [facility] May 03, 2015 01:13 PM [facility] Advance Directives: All historical and [...] 08, 2019 ADVANCE DIRECTIVE MIGDALIA MILES [place] [facility] Apr 14, [address] B[address] [facility] Encounter Notes: All associated encounter notes This section contains the clinical notes associated to the Encounter. Date/Time Encounter Note(s) Provider Source Oct 14, 2023 12:00 AM NONVA CONSULT: LOCAL TITLE: COMMUNITY CARE-CONSULT RESULT NOTE STANDARD TITLE: NONVA CONSULT DATE OF NOTE: OCT 14, 2023 ENTRY DATE: OCT 29, 2023@09:46:11 AUTHOR: SHEN PONCE EXP COSIGNER: URGENCY: STATUS: COMPLETED VistA Imaging - Scanned Document SCANNED DOCUMENT SIGNATURE NOT REQUIRED Electronically Filed: 10/29/2023 by: SHEN PONCE UNIT OPERATOR SHEN PONCE [facility]
--- OUTSIDE RECORDS SUMMARY | 2024-02-16 09:13 | XMS_ITS ---
Author Name [facility] [facility] [place] [facility] [place] Address [address] [place] [address] Care Team Providers Care Solar Sales Energy Advisor Name Role Phone SUBHA VELAZQUEZ Primary Care [...] GREGORY DIOP Sep 15, 2011 GREGORY PUGA [phone] PAULA GONZALES [facility]IENT [facility] MEDICARE SUPPLEMEN [facility] Aug 09, 2017 [id number] PAULA GONZALES PATIENT [facility] MEDICARE SUPPLEMEN [facility] SUPP [address] Aug 09, 2017 [id number] [phone] PAULA GONZALES PATIENT MEDICARE (WNR) MEDICARE (M) PART A Nov 10, 2019 PART A [id number] PAULA GONZALES PATIENT MEDICARE (WNR) MEDICARE (M) PART B Apr 09, 2010 PART B [id number] PAULA GONZALES PATIENT MEDICARE (WNR) MEDICARE (M) PART B Apr 09, 2010 PART B [id number] PAULA GONZALES PATIENT MEDICARE (WNR) MEDICARE (M) PART B Apr 09, 2010 PART B [id number] [phone] PAULA GONZALES PATIENT MEDICARE (WNR) MEDICARE (M) PART A Nov 09, 2009 PART A [id number] PAULA GONZALES PATIENT MEDICARE (WNR) MEDICARE (M) PART A Nov 09, 2009 PART A [id number] PAULA GONZALES PATIENT Selected Encounter This section includes the information on record at [place] for the Encounter. Date/Time Encounter Type Encounter Description Reason Pro vider Source Oct 06, 2023 01:00 PM Outpatient Encounter [facility] Encounter Template Text not used by [place] Plan of Treatment: Future Appointments (+ 6 months) and Future Tests (+/- 45 days) The Plan of Treatment section includes future care activities for the [facility] [place] [facility] This section includes future appointments and [...] 13, 2023 08:00 AM AMBULATORY - MEDICINE [facility] [place] [facility] Oct 13, 2023 01:00 PM AMBULATORY - [place]CHIATRY [place] [facility] [facility] Oct 14, 2023 08:00 AM AMBULATORY - MEDICINE [facility] [place] [facility] Oct 20, 2023 01:00 PM AMBULATORY [place]ATRY [place] [facility] [facility] Oct 27, 2023 01:00 PM AMBUL[place]ORY [place] [facility] [facility] Nov 03, 2023 01:00 PM AMBULATORY [place]ATRY [place] [facility] Nov 05, 2023 09:00 AM AMBULATORY - REHAB [place]ICIN [place] [facility] Nov 05, 2023 12:00 PM AMBULATORY [...] AMBULATORY - [facility]IATRY [facility] [place] [facility] Jan 26, 2024 04:00 PM AMBULATORY - PS[place]CHIATRY [place] [facility] [place] [facility] Feb 09, 2024 04:00 PM AMBULATORY - PS[place]CHIATRY [place] [facility] [place] [facility] Lab Results: +/- 30 days of the encounter This section includes the Chemistry and Hematology Lab Results on record with [place] for the patient. Radiology Reports and Pathology Reports are provided separately, in subsequent sections. Lab Results This section contains the Chemistry/Hematology Results that were resulted 30 days before or 30 daysafter the date of the Encounter. Date/Time Source Result Type Result - Unit Interpretation Reference Range Comment Sep 17, 2023 07:56 AM [place] [facility] [facility] LIPID PANEL FASTING Specimen Type: SERUM No comment entered. Ordering Provider: SUBHA VELAZQUEZ Report Released Date/Time: May 21, 2023 03:02 PM Reporting [facility] [place] [facility] [address] [address] Performing Lab: [facility] [address] [address] CHOLESTEROL 208 mg/dL H TRIGLYCERIDE 154 mg/dL H 0-150 LDL calculated 139 mg/dL H 0-129 CHOL/HDL 5.5 HDL CHOLESTEROL 38 mg/dL L 40-60 Sep 17, 2023 07:56 AM [place] [facility] [place] [facility] BASIC METABOLIC PANEL (non-fasting) Specimen Type: SERUM No comment entered. Ordering Provider: SUBHA VELAZQUEZ Report Released Date/Time: May 21, 2023 03:02 PM Reporting Lab[facility] [address] [address] Performing Lab: [facility] [address] [address] UREA NITROGEN 30 mg/dL H 7-25 GLUCOSE [...] 19, 2023 01:00 PM VA-TOBACCO NEVER USED [facility] Tobacco Use History This section includes a history of the smoking, or tobacco-related health factors, that were collected on or before the date of the Encounter. The data comes from the [place] facility where the Encounter took place. Date/Time Smoking Status/Tobacco Use Comment Gisele villalobos June 17, 2022 01:00 PM VA-TOBACCO NEVER USED [facility] [place] [facility] Jul 16, 2021 01:00 PM VA-TOBACCO NEVER USED [facility] [place] [facility] July 03, 2020 01:00 PM VA-TOBACCO NEVER USED [facility] [place] [facility] Jul 11, 2019 02:57 PM VA-TOBACCO NEVER USED [facility] [place] [facility] Jan 14, 2019 08:50 AM VA-TOBACCO NEVER USED [facility] [place] [facility] Mar 04, 2018 01:20 PM VA-TOBACCO NEVER USED [place] [facility] [place] [facility] May 27, 2017 11:01 AM LIFETIME NON-TOBACCO USER [facility] [place] [facility] May 20, 2016 10:51 AM LIFETIME NON-TOBACCO USER [place] [facility] [place] [facility] May 03, 2015 01:13 PM LIFETIME NON-TOBACCO USER [place] [facility] Advance Directives: All historical and current [...] DIRECTIVE MIGDALIA MILES [place] [facility] [place] [facility] Apr 14, 2019 ADVANCE DIRECTIVE RAFAL BULLARD [place] [facility] N[facility] Encounter Notes: All associated encounter notes This section contains the clinical notes associated to the Encounter. Date/Time Encounter Note(s) Provider Source Oct 06, 2023 08:54 AM ADMINISTRATIVE NOTE: LOCAL TITLE: ADMINISTRATIVE NOTE STANDARD TITLE: ADMINISTRATIVE NOTE DATE OF NOTE: OCT 06, 2023@08:54 ENTRY DATE: OCT 06, 2023@08:54:41 AUTHOR: JUANCARLOS MENDES EXP COSIGNER: URGENCY: STATUS: COMPLETED AMSA contacted [facility] to let him know provider is out today. AMSA confirmed next appointment with provider. /rosio/ JUANCARLOS MENDES [employer] Signed: 10/06/2023 08:55 JUANCARLOS MENDES [place] [facility]
--- OUTSIDE RECORDS SUMMARY | 2024-02-16 09:13 | XMS_ITS | Encounter Summary ---
Author Name [facility] [place] [facility] [place] [facility] [place] Address [address] [place] [address] Care Team Providers Care Behavioral Sciences Instructor Name Role Phone SUBHA VELAZQUEZ Primary Care [...] GREGORY DIOP Sep 15, 2011 GREGORY PUGA [phone] PAULA FENG PATIENT [facility] MEDICARE SUPPLEMEN [facility] [employer] [employer] [facility] Aug 09, 2017 [id number] [phone] PAULA FENG PATIENT [facility] MEDICARE SUPPLEMEN [facility] E[facility] Aug 09, 2017 [id number] PAULA FENG PATIENT MEDICARE (WNR) MEDICARE (M) PART A Nov 10, 2019 PART A [id number] PAULA FENG PATIENT MEDICARE (WNR) MEDICARE (M) PART B Apr 09, 2010 PART B [id number] PAULA FENG PATIENT MEDICARE (WNR) MEDICARE (M) PART B Apr 09, 2010 PART B [id number] PAULA FENG PATIENT MEDICARE (WNR) MEDICARE (M) PART B Apr 09, 2010 PART B [id number] PAULA FENG PATIENT MEDICARE (WNR) MEDICARE (M) PART A Nov 09, 2009 PART A [id number] PAULA FENG PATIENT MEDICARE (WNR) MEDICARE (M) PART A Nov 09, 2009 PART A [id number] [phone] PAULA FENG PATIENT Selected Encounter This section includes the information on record at [place] for the Encounter. Date/Time Encounter Type Encounter Description Reason Provider Source Oct 13, 2023 01:00 PM PSYTX W PT 45 MINUTES [facility] - IND ICD-10-CM F43.10 Post-traumatic stress disorder, unspecified NATHAN KIRK Mikhail Encounter Template Text not used by [place] Assessments - Encounter Diagnoses This section includes the primary and secondary diagnoses documented for the Encounter. Date/Time Primary/Secondary Diagnosis Diagnosis Name Provider Source Oct 13, 2023 10:47 PM PRIMARY Post-traumatic stress disorder, unspecified NATHAN KIRK [facility] Plan of Treatment: Future Appointments [...] Appointment Type Appointme nt Facility Name Oct 14, 2023 08:00 AM AMBULATORY - MEDICINE [facility] [place] [place] [facility] Oct 20, 2023 01:00 PM AMBULATORY [place] [facility] Oct 27, 2023 01:00 PM AMBULATORY [place] [facility] Nov 03, 2023 01:00 PM [facility] [place] [facility] Nov 05, 2023 09:00 AM AMBULATORY - REHAB MEDICIN E [facility] [place] [facility] Nov 05, 2023 12:00 PM AMBULATORY - MEDICINE [facility] [place] [facility] Nov 10, 2023 01:00 PM AMBULATORY [facility]ATRY [facility] [place] [facility] Nov 17, 2023 01:00 PM AMBULATORY - PS[facility]CHIATRY [facility] [place] [facility] Dec 01, 2023 01:00 PM AMBULATORY - PSYCHIATRY [facility] [place] [facility] Dec 08, 2023 09:00 AM AMBULATORY [facility] MEDICINE [facility] [place] [facility] Dec 08, 2023 09:01 AM [facility]IC[facility] Dec 08, 2023 01:00 PM AMBULATORY - PSYCHIATRY [place] [facility] [place] [facility] Dec 15, 2023 09:00 AM AMBULATORY - NONE [place] [facility] [place] [facility] Dec 15, 2023 01:00 PM AMBULATORY - PSYCHIATRY [place] [facility] [place] [facility] Dec 29, 2023 04:00 PM AMBULATORY - PSYCHIATRY [place] [facility] [place] [facility] Jan 05, 2024 04:00 PM AMBULATORY - PSYCHIATRY [place] [facility] [place] [facility] Jan 26, 2024 04:00 PM AMBULATORY - PSYCHIATRY [place] [facility] [place] [facility] Feb 09, 2024 04:00 PM AMBULATORY - PSYCHIATRY [place] [facility] [place] [facility] Feb 16, 2024 09:00 AM AMBULATORY - MEDICINE [facility] [place] [facility] Feb 19, 2024 01:00 PM AMBULATORY - PSYCHIATRY [facility] [place] [facility] Lab Results: +/- 30 days of the [...] 2023 07:56 AM [facility] [place] [facility] LIPID PANEL FASTING Specimen Type: SERUM No comment entered. Ordering Provider: SUBHA VELAZQUEZ Report Released Date/Time: May 21, 2023 03:02 PM Reporting Lab: [facility] [address] [address] Performing Lab: [address] [address] CHOLESTEROL 208 mg/dL H TRIGLYCERIDE 154 mg/dL H 0-150 LDL calculated 139 mg/dL H 0-129 CHOL/HDL 5.5 HDL CHOLESTEROL 38 mg/dL L 40-60 Sep 17, 2023 07:56 AM [facility] BASIC METABOLIC PANEL (non-fasting) Specimen Type: SERUM No comment entered. Ordering Provider: SUBHA VELAZQUEZ Report Released Date/Time: May 21, 2023 03:02 PM Reporting Lab: [address] [address] Performing Lab: [address] [address] UREA NITROGEN 30 mg/dL H 7-25 GLUCOSE [...] 19, 2023 01:00 PM VA-TOBACCO NEVER USED [facility] Tobacco Use History This section includes a history of the smoking, or tobacco-related health factors, that were collected on or before the date of the Encounter. The data comes from the [place] facility where the Encounter took place. Date/Time Smoking Status/Tobacco Use Comment Gisele villalobos June 17, 2022 01:00 PM VA-TOBACCO NEVER USED [facility] Jul 16, 2021 01:00 PM VA-TOBACCO NEVER USED [place] [facility] [place] [facility] July 03, 2020 01:00 PM VA-TOBACCO NEVER USED [place] [facility] [place] [facility] Jul 11, 2019 02:57 PM VA-TOBACCO NEVER USED [place] [facility] [place] [facility] Jan 14, 2019 08:50 AM VA-TOBACCO NEVER USED [place] [facility] [place] [facility] Mar 04, 2018 01:20 PM VA-TOBACCO NEVER USED [place] [facility] [place] [facility] May 27, 2017 11:01 AM LIFETIME NON-TOBACCO USER [place] [facility] [place] [facility] May 20, 2016 10:51 AM LIFETIME NON-TOBACCO USER [place] [facility] [place] [facility] May 03, 2015 01:13 PM LIFETIME NON-TOBACCO USER [place] [facility] [place] [facility] Advance Directives: All historical and current Section [...] DIRECTIVE MIGDALIA MILES [place] [facility] [place] [facility] Apr 14, 2019 ADVANCE DIRECTIVE RAFAL BULLARD [place] [facility] [facility] Encounter Notes: All associated encounter notes This section contains the clinical notes associated to the Encounter. Date/Time Encounter Note(s) Provider Source Oct 13, 2023 01:05 PM TELEHEALTH NOTE: LOCAL TITLE: [facility]CT PSYCHOLOGY NOTE STANDARD TITLE: TELEHEALTH NOTE DATE OF NOTE: OCT 13, 2023@13:05 ENTRY DATE: OCT 13, 2023@13:05:49 AUTHOR: NATHAN KIRK EXP COSIGNER: URGENCY: STATUS: COMPLETED [facility] ([facility]VC) Standard Documentation VVC Clinician Resources Only: E911 (Emergency Call Relay Center): [phone] [facility] Line - 988 then press #1. CW Suicide Coordinator [phone], Ext. [phone]; Back-up Ext. [phone] [place] , [place] JOSHUA [phone] Introduction: Visit is being conducted by [place] [facility]. identified with 2 identifiers: [X] Full Name [ ] Date of [ ] VA ID Card [X] Visual Recognition Emergency Plan: confirmed and/or provided the following information in case of emergency or technology failure. PATIENT PHONE - PHONE NUMBER [CELLULAR] - Is patient phone number correct, if not, enter below: Shirley's phone number: PRASANTH FENG [address], [place], [address] 's present location and address for appointment: [address] [place] [address] Shirley's emergency contact name and phone number: Layla Feng Shirley reported that location is private and safe: Yes Informed Consent: informed of the risks and benefits of Telehealth video care. has the right to refuse video services. If refuses video visit, a [id number] visit will be scheduled. verbalized consent for this video visit: Yes Shirley provided consent for any other persons present [...] court of law and presented to a web developer), and DOD access for active-duty service members. Provided Suicide Prevention Hotline number, and other contact numbers as necessary. VISIT DURATION: 46 Minutes DIAGNOSIS: PTSD [employer] STATEMENT OF GOALS/CONCERNS: Reduce irritability, avoidance, work on current challenges (including medical issues, particularly, cancer diagnosis), relationship issues, increase. meaningful activities and remain connected with people he is close to. SESSION FOCUS: Shirley shared details regarding custodial medical issues, and gathering information for SCD claims. Shirley expressed recognizing that he spends a great deal of his life working on his claims and looking for answers regarding his medical challenges. He also shared that he knows he needs a little more balance in his life, however, it has not been easy for him to do. The remainder of the session focused on engaging in things that are meaningful to Shirley. He shared that his will be out of town for 7-10 days and that he will spend the time with his daughter and grandchildren, and having fun with his 10 week old puppy, he named, Silvestre. Will revisit next session. INTERVENTIONS: Continued goal [...] PLAN FOR FOLLOW-UP: Next session planned for: 10/13/23 at 1:00pm /rosio/ NATHAN KIRK, Ph.D Clinical Psychologist Signed: 10/13/2023 22:47 NATHAN KIRK [place] [facility]
--- OUTSIDE RECORDS SUMMARY | 2024-02-16 09:13 | XMS_ITS | Encounter Summary ---
Author Name [facility] [place] Address [address] [place] [address] Care Team Providers Care Environmental Protection Inspector Name Role Phone SUBHA VELAZQUEZ Primary [...] SPECIAL CLASS GREGORY DIOP Sep 15, 2011 GREGOYR PUGA [id number] [phone] PAULA GONZALES [facility]IENT [facility] [place] MEDIC[facility] SUPPLEMEN [facility] Aug 09, 2017 [id number] [phone] PAULA GONZALES PATIENT [facility] [place] MEDICARE SUPPLEMEN [facility] SUPP [facility] Aug 09, 2017 [id number] PAULA GONZALES PATIENT MEDICARE (WNR) MEDICARE (M) PART A Nov 10, 2019 PART A [id number] PAULA GONZALES PATIENT MEDICARE (WNR) MEDICARE (M) PART B Apr 09, 2010 PART B [id number] PAULA GONZALES PATIENT MEDICARE (WNR) MEDICARE (M) PART B Apr 09, 2010 PART B [id number] PAULA GONZALES PATIENT MEDICARE (WNR) MEDICARE (M) PART B Apr 09, 2010 PART B [id number] [phone] PAULA GONZALES PATIENT MEDICARE (WNR) MEDICARE (M) PART A Nov 09, 2009 PART A [id number] PAULA GONZALES PATIENT MEDICARE (WNR) MEDICARE (M) PART A Nov 09, 2009 PART A [id number] PAULA GONZALES PATIENT Selected Encounter This section includes the information on record at [place] for the Encounter. Date/Time Encounter Type Encounter Description Reason Provider Source Oct 20, 2023 01:00 PM PSYTX W PT 45 MINUTES [facility] - IND ICD-10-CM F43.10 Post-traumatic stress disorder, unspecified NATHAN KIRK Mikhail Encounter Template Text not used by [place] Assessments - Encounter Diagnoses This section includes the primary and secondary diagnoses documented for the Encounter. Date/Time Primary/Secondary Diagnosis Diagnosis Name Provider Source Oct 23, 2023 10:15 PM PRIMARY Post-traumatic stress disorder, unspecified [facility] Plan of Treatment: Future Appointments (+ [...] Appointment Type Appointme nt Facility Name Oct 27, 2023 01:00 PM [facility] Nov 03, 2023 01:00 PM AM[place]ULATORY [place] [facility] [place] [facility] Nov 05, 2023 09:00 AM AMBULATORY - REHAB MEDICIN E [place] [facility] [place] [facility] Nov 05, 2023 12:00 PM AMBULATORY - MEDICINE [place] [facility] [place] [facility] Nov 10, 2023 01:00 PM AMBULATORY - PS[facility]CHIATRY [facility] [place] [facility] Nov 17, 2023 01:00 PM AMBULATORY - PSYCHIATRY [facility] [place] [facility] Dec 01, 2023 01:00 PM AMBULATORY - PSYCHIATRY [facility] [place] [facility] Dec 08, 2023 09:00 AM AMBULATORY - MEDICINE [facility] [place] [facility] Dec 08, 2023 09:01 AM AMBULATORY - MEDICINE [facility] Dec 08, 2023 01:00 PM AMBULATORY - PSYCHIATRY [facility] [place] [facility] Dec 15, 2023 09:00 AM AMBULATORY - NONE [facility] [place] [facility] Dec 15, 2023 01:00 PM AMBULATORY - PSYCHIATRY [facility] [place] [facility] Dec 29, 2023 04:00 PM AMBULATORY - PSYCHIATRY [facility] [place] [facility] Jan 05, 2024 04:00 PM AMBULATORY - PSYCHIATRY [facility] [place] [facility] Jan 26, 2024 04:00 PM AMBULATORY - PSYCHIATRY [facility] [place] [facility] Feb 09, 2024 04:00 PM AMBULATORY - PSYCHIATRY [facility] [place] [facility] Feb 16, 2024 09:00 AM AMBULATORY - MEDICINE [facility] [place] [facility] Feb 19, 2024 01:00 PM AMBULATORY - PSYCHIATRY [facility] [place] [facility] Feb 23, 2024 04:00 PM AMBULATORY - PSYCHIATRY [facility] [place] [facility] Mar 01, 2024 04:00 PM AMBULATORY - PSYCHIATRY [facility] [place] [facility] Social History: Smoking Status (Most [...] 2023 01:00 PM VA-TOBACCO NEVER USED [facility] Tobacco Use History This section includes a history of the smoking, or tobacco-related health factors, that were collected on or before the date of the Encounter. The data comes from the [place] facility where the Encounter took place. Date/Time Smoking Status/Tobacco Use Comment F acility June 17, 2022 01:00 PM VA-TOBACCO NEVER USED [facility] [place] [facility] Jul 16, 2021 01:00 PM VA-TOBACCO NEVER USED [facility] [place] [facility] July 03, 2020 01:00 PM VA-TOBACCO NEVER USED [facility] [place] [facility] Jul 11, 2019 02:57 PM VA-TOBACCO NEVER USED [facility] [place] [facility] Jan 14, 2019 08:50 AM VA-TOBACCO NEVER USED [facility] [place] [facility] Mar 04, 2018 01:20 PM VA-TOBACCO NEVER USED [facility] [place] [facility] May 27, 2017 11:01 AM LIFETIME NON-TOBACCO USER [facility] [place] [facility] May 20, 2016 10:51 AM LIFETIME NON-TOBACCO USER [facility] [place] [facility] May 03, 2015 01:13 PM LIFETIME NON-TOBACCO USER [facility] [place] [facility] Advance Directives: All historical and [...] DIRECTIVE MIGDALIA MILES [place] [facility] [place] [facility] Apr 14, 2019 ADVANCE DIRECTIVE RAFAL BULLARD [facility] [place] [facility] Encounter Notes: All associated encounter notes This section contains the clinical notes associated to the Encounter. Date/Time Encounter Note(s) Provider Source Oct 20, 2023 01:13 PM MENTAL HEALTH DIAG NOSTIC STUDY NOTE: LOCAL TITLE: MENTAL HEALTH DIAGNOSTIC STUDY STANDARD TITLE: MENTAL HEALTH DIAGNOSTIC STUDY NOTE DATE OF NOTE: OCT 20, 2023@13:13:30 ENTRY DATE: OCT 20, 2023@13:13:30 AUTHOR: NATHAN KIRK EXP COSIGNER: URGENCY: STATUS: COMPLETED These assessments were completed by PRASANTH GONZALES via provider direct entry on 10/20/2023 1:12:35 PM. PTSD CHECKLIST (PCL-5) - WEEKLY Patient reported being bothered by the following over the past week: 1. Disturbing memories: A little bit 2. Disturbing dreams: A little bit 3. Re-experiencing events: Not at all 4. Cued distress: A little bit 5. Cued physical symptoms: Not at all 6. Avoiding internal reminders: A little bit 7. Avoiding external reminders: Not at all 8. Trouble with recall: Not at all 9. Negative beliefs: Not at all 10. Blaming self/others: Not at all 11. Negative feelings: A little bit 12. Loss of interest: Not at all 13. Feeling distant from others: A little bit 14. Feeling numb: A little bit 15. Feeling irritable: Not at all 16. Reckless behavior: Not at all 17. Being super-alert : Not at all 18. Feeling easily startled: Not at all 19. Difficulty concentrating: A little bit 20. Trouble sleeping: A little bit PCL-5 total score = 9 This measure [...] PCL-5 Weekly Total Score (past 180 days): 10/20/2023 9 09/29/2023 7 09/15/2023 4 09/01/2023 7 08/11/2023 9 06/30/2023 10 05/19/2023 Gautam /rosio/ NATHAN KIRK, Ph.D Clinical Psychologist Signed: 10/20/2023 21:48 NATHAN KIRK [facility] Oct 20, 2023 12:57 PM TELEHEALTH NOTE: LOCAL TITLE: VA VIDEO CONNECT PSYCHOLOGY NOTE STANDARD TITLE: TELEHEALTH NOTE DATE OF NOTE: OCT 20, 2023@12:57 ENTRY DATE: OCT 20, 2023@12:57:37 AUTHOR: NATHAN KIRK EXP COSIGNER: URGENCY: STATUS: COMPLETED VA VIDEO CONNECT PSYCHOLOGY NOTE Has ADDENDA VA Video Connect (VVC) Standard Documentation VVC Clinician Resources Only: E911 (Emergency Call Relay Center): [phone] [facility] Crisis Line - 988 then press #1. [facility] Suicide Coordinator [phone], Ext. [phone]; Back-up Ext. [phone] [place] Police, [place], [place] [phone] Introduction: Visit is being conducted by [place] Risk Ident. identified with 2 identifiers: [X] Full Name [ ] Date of [ ] VA ID Card [X] Visual Recognition Emergency Plan: Boyce confirmed and/or provided the following information in case of emergency or technology failure. PATIENT PHONE - PHONE NUMBER [CELLULAR] - Is patient phone number correct, if not, enter below: Boyce's phone number: PRASANTH Gael JANET [address], [place], [address] Boyce's present location and address for appointment: [address] [place] [address] Boyce's emergency contact name and phone number: Layla Janet Boyce reported that location is private and safe: Yes Informed Consent: informed of the risks and benefits of Telehealth video care. has the right to refuse video services. If refuses video visit, a [id number]-qa-[id number] visit will be scheduled. 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 Provided Suicide Prevention Hotline number, and other contact numbers as necessary. VISIT DURATION: 47 Minutes DIAGNOSIS: PTSD [employer] STATEMENT OF GOALS/CONCERNS: Reduce irritability, avoidance, work on current challenges (including medical issues, particularly, cancer diagnosis), relationship issues, increase. meaningful activities and remain connected with people he is close to. SESSION FOCUS: 1) shared details regarding continued marital challenges, disagreements regarding money, his 's reported dislike for his adult children, and how they spend their holidays. Boyce shared that things are very difficult between them, however, stated that he would not divorce her as it wouldn't make sense to do so at this point in their lives. 2) shared continued challenges regarding his medical issues, recent medical appointments, and working on updating his Service Connected Disability. 3)The remainder of the session focused on a traumatic event that witnessed upon his arrival to [place]. He shared his thoughts and emotions around the event. He stated that he would like to revisit next session. INTERVENTIONS: Continued goal setting, [...] PLAN FOR FOLLOW-UP: Next session planned for: 10/27/23 at 1:00pm /fay KIRK, Ph.D Clinical Psychologist Signed: 10/23/2023 22:15 10/23/2023 ADDENDUM STATUS: COMPLETED Session began with completion and review of the PCL-5 (Score: 9). /fay KIRK, Ph.D Clinical Psychologist Signed: 10/23/2023 22:18 NATHAN KIRK [facility]
--- OUTSIDE RECORDS SUMMARY | 2024-02-16 09:13 | XMS_ITS | Encounter Summary ---
Author Name [facility] [place] [facility] [place] Organization [place] Address [address] [place] [address] Care Team Providers Care Transition Mgr Name Role Phone SUBHA VELAZQUEZ Primary Care [...] GREGORY DIOP Sep 15, 2011 GREGORY PUGA [id number] [phone] PAULA FENG [facility] MEDICARE SUPPLEMEN [facility] Aug 09, 2017 [id number] PAULA FENG PATIENT [facility] [place] MEDIC[facility] SUPPLEMEN [facility] PL Aug 09, 2017 [id number] PAULA FENG PATIENT MEDICARE (WNR) MEDICARE (M) PART A Nov 10, 2019 PART A [id number] PAULA FENG PATIENT MEDICARE (WNR) MEDICARE (M) PART B Apr 09, 2010 PART B [id number] PAULA FENG PATIENT MEDICARE (WNR) MEDICARE (M) PART B Apr 09, 2010 PART B [id number] PAULA FENG PATIENT MEDICARE (WNR) MEDICARE (M) PART B Apr 09, 2010 PART B [id number] [phone] PAULA FEGN PATIENT MEDICARE (WNR) MEDICARE (M) PART A Nov 09, 2009 PART A [id number] PAULA FENG PATIENT MEDICARE (WNR) MEDICARE (M) PART A Nov 09, 2009 PART A [id number] PAULA FENG PATIENT Selected Encounter This section includes the information on record at [place] for the Encounter. Date/Time Encounter Type Encounter Description Reason Provider Source Nov 03, 2023 01:00 PM PSYTX W PT 45 MINUTES [facility] - IND ICD-10-CM F43.10 Post-traumatic stress disorder, unspecified NATHAN KIRK Mikhail Encounter Template Text not used by [place] Assessments - Encounter Diagnoses This section includes the primary and secondary diagnoses documented for the Encounter. Date/Time Primary/Secondary Diagnosis Diagnosis Name Provider Source Nov 05, 2023 06:34 PM PRIMARY Post-traumatic stress disorder, unspecified [facility] Plan of Treatment: Future Appointments (+ [...] Date/Time Appointment Type Appointme nt Facility Name Nov 05, 2023 09:00 AM AMBULATORY - REHAB MEDICIN E [place] [facility] [place] [facility] Nov 05, 2023 12:00 PM AMBULATORY - MEDICINE [place] [facility] [place] [facility] Nov 10, 2023 01:00 PM AMBULATORY - PSYCHIATRY [place] [facility] [place] [facility] Nov 17, 2023 01:00 PM AMBULATORY - PSYCHIATRY [place] [facility] [place] [facility] Dec 01, 2023 01:00 PM AMBULATORY - PSYCHIATRY [place] [facility] [place] [facility] Dec 08, 2023 09:00 AM AMBULATORY - MEDICINE [place] [facility] [place] [facility] Dec 08, 2023 09:01 AM AMBULATORY [...] [place] [facility] Jan 26, 2024 04:00 PM AMBULATORY - PSYCHIATRY [facility] [place] [facility] Feb 09, 2024 04:00 PM AMBULATORY - PSYCHIATRY [facility] [place] [facility] Feb 16, 2024 09:00 AM AMBULATORY - MEDICINE [facility] [place] [facility] Feb 19, 2024 01:00 PM AMBULATORY - PSYCHIATRY [facility] [facility] Feb 23, 2024 04:00 PM AMBULATORY - PSYCHIATRY [facility] [facility] Mar 01, 2024 04:00 PM AMBULATORY - PSYCHIATRY [facility] [facility] Mar 29, 2024 09:00 AM AMBULATORY - MEDICINE [place] [facility] [facility] Social History: Smoking Status (Most current) [...] 19, 2023 01:00 PM VA-TOBACCO NEVER USED [facility] [place] [facility] Tobacco Use History This section includes a history of the smoking, or tobacco-related health factors, that were collected on or before the date of the Encounter. The data comes from the [facility] facility where the Encounter [...] DIRECTIVE MIGDALIA MILES [place] [facility] [place] [facility] Apr 14, 2019 ADVANCE DIRECTIVE RAFAL BULLARD [place] C [facility] [place] [facility] Encounter Notes: All associated encounter notes This section contains the clinical notes associated to the Encounter. Date/Time Encounter Note(s) Provider Source Nov 03, 2023 01:17 PM MENTAL HEALTH DIAG NOSTIC STUDY NOTE: LOCAL TITLE: MENTAL HEALTH DIAGNOSTIC STUDY STANDARD TITLE: MENTAL HEALTH DIAGNOSTIC STUDY NOTE DATE OF NOTE: NOV 03, 2023@13:17:18 ENTRY DATE: NOV 03, 2023@13:17:18 AUTHOR: NATHAN KIRK EXP COSIGNER: URGENCY: STATUS: COMPLETED These assessments were completed by PRASANTH FENG via provider direct entry on 11/03/2023 1:16:17 PM. PTSD CHECKLIST (PCL-5) - WEEKLY Patient [...] little bit 13. Feeling distant from others: A little bit 14. Feeling numb: A little bit 15. Feeling irritable: Not at all 16. Reckless behavior: Not at all 17. Being super-alert : A little bit 18. Feeling easily startled: A little bit 19. Difficulty concentrating: A little bit 20. Trouble sleeping: Not at all PCL-5 total score = 10 This measure [...] PCL-5 Weekly Total Score (past 180 days): 11/03/2023 10 10/27/2023 8 10/20/2023 9 09/29/2023 7 09/15/2023 4 09/01/2023 7 08/11/2023 9 06/30/2023 10 05/19/2023 Gautam /rosio/ NATHAN KIRK, Ph.D Clinical Psychologist Signed: 11/03/2023 18:28 NATHAN KIRK [place] [facility] [place] [facility] Nov 03, 2023 01:07 PM TELEHEALTH NOTE: LOCAL TITLE: [place] VIDEO CONNECT PSYCHOLOGY NOTE STANDARD TITLE: TELEHEALTH NOTE DATE OF NOTE: NOV 03, 2023@13:07 ENTRY DATE: NOV 03, 2023@13:07:13 AUTHOR: NATHAN KIRK EXP COSIGNER: URGENCY: STATUS: COMPLETED A Video Connect (VVC) Standard Documentation VVC Clinician Resources Only: E911 (Emergency Call Relay Center): [phone] [facility] Crisis Line - 988 then press #1. [facility] Suicide Coordinator [phone], Ext. [phone]; Back-up Ext. [phone] [place] [address], [place]UA [phone] Introduction: Visit is being conducted by [place] Need[employer] Connect. Sumner identified with 2 identifiers: [X] Full Name [ ] Date of [ ] VA ID Card [X] Visual Recognition Emergency Plan: confirmed and/or provided the following information in case of emergency or technology failure. PATIENT PHONE - PHONE NUMBER [CELLULAR] - Is patient phone number correct, if not, enter below: 's phone number: PRASANTH FENG [address], [place], [address] 's present location and address for appointment: [address] [place] [address]. [place] [address] Sumner's emergency contact name and phone number: Layla Feng Sumner reported that location is private and safe: Yes Informed Consent: informed of the risks and benefits of Telehealth video care. Sumner has the right to refuse video services. If refuses video visit, a [id number] visit will be scheduled. verbalized consent for [...] court of law and presented to a belt splicer), and [facility] access for active-duty service members. Provided [...] and review of the PCL-5 (Score: 10). The remainder of the session focused on Sumner's reported marital challenges. Art shared that things have gotten worse lately , stating that him and his don't see eye to eye on most things. He stated that she recently told him that he doesn't do enough or complete projects around the house. However, he stated that he works a great deal, and that he has to limit his physical activities as he is still healing from a number of major surgeries over the last two years, including knee and hip replacements. He also shared that there are frequent events in which his makes him feel unwelcome about attending them with her, such as, the upcoming 79th birthday green party for a friend of theirs. Art shared he doesn't understand why she seemingly doesn't want him to accompany her, however, will probably attend the event anyway. Art stated that one of the most difficult things to deal with is that his recently told him she wanted to see his Will , and then reportedly informed him that she will not honor his wishes to divide their assets equally among his children and hers after she passes (should she pass after the ). He stated that she said she will change the Will after he passes (if he passes first), cut [his] children out of it, and leave their estate to her children only. 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 stated he recognizes that what's most important is the love he and his children (and grandchildren) have for each other and that will not change no matter what. He stated that his will not spend any time, or holidays with his children, therefore, he stated that she can spend the holidays with her children and he will spend the holidays with his children. Will revisit next session. INTERVENTIONS: Process thoughts and emotions from [place], increase meaningful activities, addressed stressors regarding marital challenges, [...] PLAN FOR FOLLOW-UP: Next session planned for: 11/10/23 at 1:00pm Completed Clinical Reminders: Depression Screening: Perform PHQ-2 A PHQ-2 screen was performed. The score was 2 which is a negative screen for depression. Over the past two weeks, how often have you been bothered by the following problems? 1. Little interest or pleasure in doing things Several days 2. Feeling down, depressed, or hopeless Several days /rosio/ NATHAN KIRK, Ph.D Clinical Psychologist Signed: 11/05/2023 18:34 NATHAN KIRK [facility]
--- OUTSIDE RECORDS SUMMARY | 2024-02-16 09:13 | XMS_ITS ---
Author Name [facility] [place] Address [address] [place] [address] Care Team Providers Care Nutrition Aide Name Role Phone SUBHA VELAZQUEZ Primary Care [...] GREGORY DIOP Sep 15, 2011 GREGORY PUGA [id number] PAULA GONZALES PATIENT HEALTH POWERSITE MEDICARE SUPPLEMEN [employer] Aug 09, 2017 [id number] [phone] PAULA GONZALES PATIENT HEALTH [employer]ITE MEDICARE SUPPLEMEN [facility] SUPP PL Aug 09, 2017 [id number] PAULA GONZALES PATIENT MEDICARE (WNR) MEDICARE (M) PART A Nov 10, 2019 PART A [id number] PAULA GONZALES PATIENT MEDICARE (WNR) MEDICARE (M) PART B Apr 09, 2010 PART B [id number] PAULA GONZALES PATIENT MEDICARE (WNR) MEDICARE (M) PART B Apr 09, 2010 PART B [id number] PAULA GONZALES PATIENT MEDICARE (WNR) MEDICARE (M) PART B Apr 09, 2010 PART B [id number] PAULA GONZALES PATIENT MEDICARE (WNR) MEDICARE (M) PART A Nov 09, 2009 PART A [id number] PAULA GONZALES PATIENT MEDICARE (WNR) MEDICARE (M) PART A Nov 09, 2009 PART A [id number] [phone] PAULA GONZALES PATIENT Selected Encounter This section includes the information on record at [place] for the Encounter. Date/Time Encounter Type Encounter Description Reason Pro vider Source Oct 13, 2023 12:00 AM Outpatient Encounter EVENT (HISTORICAL) IHE Encounter Template Text not used by [place] Plan of Treatment: Future Appointments (+ 6 months) and Future Tests (+/- 45 days) The Plan of Treatment section includes future care activities for the patient from all [place] [facility] This section includes future appointments and future [...] 14, 2023 08:00 AM AMBULATORY - MEDICINE [facility] [place] [facility] Oct 20, 2023 01:00 PM AMBULATORY - PSYCHIATRY [place]TR [place] [facility] Oct 27, 2023 01:00 PM AMBULATORY - PSYCHIATRY [place] [facility] [place] [facility] Nov 03, 2023 01:00 PM AMBULATORY - PSYCHIATRY [place] [place] [facility] Nov 05, 2023 09:00 AM AMBULATORY - REHAB MEDICIN E [place]TR [place] [facility] Nov 05, 2023 12:00 PM AMBULATORY - MEDICINE [place] C NTRL [place] [facility] Nov 10, 2023 01:00 PM AMBULATORY - PSYCHIATRY [place] [place] [facility] Nov 17, 2023 01:00 PM AMBULATORY - PSYCHIATRY [place] [facility] Dec 01, 2023 01:00 PM AMBULATORY - PSYCHIATRY [facility] [place] [facility] Dec 08, 2023 09:00 AM AMBULATORY - MEDICINE [facility] [place] [facility] Dec 08, 2023 09:01 AM AMBULATORY - [place]ICINE [place] [facility] Dec 08, 2023 01:00 PM AMBULATORY - PSYCHIATRY [facility] [place] [facility] Dec 15, 2023 09:00 AM AMBULATORY - NONE [place] [facility] [place] [facility] Dec 15, 2023 01:00 PM AMBULATORY - PSYCHIATRY [place] [place] [facility] Dec 29, 2023 04:00 PM AMBULATORY - PSYCHIATRY [place] [facility] [place] [facility] Jan 05, 2024 04:00 PM AMBULATORY - PSYCHIATRY [place] [facility] Jan 26, 2024 04:00 PM AMBULATORY - PSYCHIATRY [place] [facility] [place] [facility] Feb 09, 2024 04:00 PM AMBULATORY - PSYCHIATRY [place] [facility] Feb 16, 2024 09:00 AM AMBULATORY - MEDICINE [place] C [place] [facility] Feb 19, 2024 01:00 PM AMBULATORY - PSYCHIATRY [place] [place] [facility] Lab Results: +/- 30 days of the encounter This section includes the Chemistry and Hematology Lab Results on record with [place] for the patient. Radiology Reports and Pathology Reports are provided separately, in subsequent sections. Lab Results This section contains the Chemistry/Hematology Results that were resulted 30 days before or 30 daysafter the date of the Encounter. Date/Time Source Result Type Result - Unit Interpretation Reference Range Comment Sep 17, 2023 07:56 AM [place] [facility] LIPID PANEL FASTING Specimen Type: SERUM No comment entered. Ordering Provider: SBUHA VELAZQUEZ Report Released Date/Time: May 21, 2023 03:02 PM Reporting Lab: [facility] [place] [facility] [address] [facility] [facility] [address] Performing Lab: [facility] [address] [address] CHOLESTEROL 208 mg/dL H TRIGLYCERIDE 154 mg/dL H 0-150 LDL calculated 139 mg/dL H 0-129 CHOL/HDL 5.5 HDL CHOLESTEROL 38 mg/dL L 40-60 Sep 17, 2023 07:56 AM [place] [facility] BASIC METABOLIC PANEL (non-fasting) Specimen Type: SERUM No comment entered. Ordering Provider: SUBHA VELAZQUEZ Report Released Date/Time: May 21, 2023 03:02 PM Reporting Lab: [facility] [address] [facility] [address] Performing Lab: [place] [facility] [address] [facility] [facility] [address] UREA NITROGEN 30 mg/dL H 7-25 GLUCOSE [...] 2023 01:00 PM VA-TOBACCO NEVER USED [place] [facility] Tobacco Use History This section includes a history of the smoking, or tobacco-related health factors, that were collected on or before the date of the Encounter. The data comes from the [place] facility where the Encounter took place. Date/Time Smoking Status/Tobacco Use Comment Gisele villalobos June 17, 2022 01:00 PM VA-TOBACCO NEVER USED [place] CNTRL [place] [facility] Jul 16, 2021 01:00 PM VA-TOBACCO NEVER USED [place] [facility] July 03, 2020 01:00 PM VA-TOBACCO NEVER USED [place] [facility] Jul 11, 2019 02:57 PM VA-TOBACCO NEVER USED [place] CN[facility] [facility] Jan 14, 2019 08:50 AM VA-TOBACCO NEVER USED VA CNTRL [place] [facility] Mar 04, 2018 01:20 PM VA-TOBACCO NEVER USED [place] CNTRL [place] [facility] May 27, 2017 11:01 AM LIFETIME NON-TOBACCO USER [place] CNTRL [place] [facility] May 20, 2016 10:51 AM LIFETIME NON-TOBACCO USER [place] [facility] May 03, 2015 01:13 PM LIFETIME NON-TOBACCO USER [facility] Advance Directives: All historical and current [...] ADVANCE DIRECTIVE MIGDALIA MILES [place] [facility]L [facility] [facility] Apr 14, 2019 ADVANCE DIRECTIVE RAFAL BULLARD [facility] Encounter Notes: All associated encounter notes This section contains the clinical notes associated to the Encounter. Date/Time Encounter Note(s) Provider Source Oct 13, 2023 12:00 AM NONVA CONSULT: LOCAL TITLE: COMMUNITY CARE-CONSULT RESULT NOTE STANDARD TITLE: NONVA CONSULT DATE OF NOTE: OCT 13, 2023 ENTRY DATE: OCT 28, 2023@11:36:27 AUTHOR: SHEN PONCE EXP COSIGNER: URGENCY: STATUS: COMPLETED VistA Imaging - Scanned Document SCANNED DOCUMENT SIGNATURE NOT REQUIRED Electronically Filed: 10/28/2023 by: SHEN PONCE REGISTERED SAFETY ENGINEER SHEN PONCE [facility]
--- OUTSIDE RECORDS SUMMARY | 2024-02-16 09:13 | XMS_ITS ---
Author Name [place] Address [address] [place] [address] Care Team Providers Care Mild Disabilities Teacher Name Role Phone SUBHA VELAZQUEZ Primary Care [...] GREGORY DIOP Sep 15, 2011 GREGORY PUGA [id number] PAULA GONZALES PATIENT HEALTH [employer] MEDICARE SUPPLEMEN [employer] Aug 09, 2017 [id number] PAULA GONZALES PATIENT HEALTH [employer] MEDICARE SUPPLEMEN [employer] SUPP PL Aug 09, 2017 [id number] [phone] PAULA GONZALES PATIENT MEDICARE (WNR) MEDICARE (M) PART A Nov 10, 2019 PART A [id number] PAULA GONZALES PATIENT MEDICARE (WNR) MEDICARE (M) PART B Apr 09, 2010 PART B [id number] PAULA GONZALES PATIENT MEDICARE (WNR) MEDICARE (M) PART B Apr 09, 2010 PART B [id number] PAULA GONZALES PATIENT MEDICARE (WNR) MEDICARE (M) PART B Apr 09, 2010 PART B [id number] [phone] PAULA GONZALES PATIENT MEDICARE (WNR) MEDICARE (M) PART A Nov 09, 2009 PART A [id number] PAULA GONZALES PATIENT MEDICARE (WNR) MEDICARE (M) PART A Nov 09, 2009 PART A [id number] [phone] PAULA GONZALES PATIENT Selected Encounter This section includes the information on record at [place] for the Encounter. Date/Time Encounter Type Encounter Description Reason Pro vider Source Sep 18, 2023 10:00 AM Outpatient Encounter PRIMARY CARE/MEDICINE IHE Encounter Template Text not used by [place] Plan of Treatment: Future Appointments (+ 6 months) and Future Tests (+/- 45 days) The Plan of Treatment section includes future care activities for the patient from all [place] [facility]. This section includes future appointments [...] 22, 2023 01:00 PM AMBULATORY - PS[place]CHIATRY [place] [facility] Sep 24, 2023 09:00 AM [facility] [place] [facility] Sep 24, 2023 10:30 AM [facility] [place] [facility] Sep 24, 2023 11:30 AM AMBULATORY - REHAB MEDICIN E [place] [facility] Sep 25, 2023 01:00 PM [facility] [place] [facility] Sep 29, 2023 01:00 PM AMBULATORY - PSYCHIATRY [place] [facility] Oct 13, 2023 08:00 AM [facility] [place] [facility] Oct 13, 2023 01:00 PM AMBULATORY - PSYCHIATRY [place] [facility] Oct 14, 2023 08:00 AM AMBULATORY - MEDICINE [place] C [place] [facility] Oct 20, 2023 01:00 PM AMBULATORY - PSYCHIATRY [place] [facility] Oct 27, 2023 01:00 PM AMBULATORY - PSYCHIATRY [facility] [place] [facility] Nov 03, 2023 01:00 PM AMBULATORY - PSYCHIATRY [place] [facility] Nov 05, 2023 09:00 AM AMBULATORY - REHAB MEDICIN E [place] [facility] Nov 05, 2023 12:00 PM AMBULATORY - MEDICINE [place] C [place] [facility] Nov 10, 2023 01:00 PM AMBULATORY - PSYCHIATRY [place] [facility] Nov 17, 2023 01:00 PM AMBULATORY - PSYCHIATRY [place] [facility] Dec 01, 2023 01:00 PM AMBULATORY - PSYCHIATRY [place] [facility] Dec 08, 2023 09:00 AM AMBULATORY - MEDICINE [place] C [place] [facility] Dec 08, 2023 09:01 AM AMBULATORY - MEDICINE [place] [facility] Dec 08, 2023 01:00 PM AMBULATORY - PS[place]IATRY [place] [facility] Lab Results: +/- 30 days of [...] Range Comment Sep 17, 2023 07:56 AM [place] [facility] LIPID PANEL FASTING Specimen Type: SERUM No comment entered. Ordering Provider: SUBHA VELAZQUEZ Report Released Date/Time: May 21, 2023 03:02 PM Reporting Lab: [facility] [address] [facility] [address] Performing Lab: [facility] [address] [address] CHOLESTEROL 208 mg/dL H TRIGLYCERIDE 154 mg/dL H 0-150 LDL calculated 139 mg/dL H 0-129 CHOL/HDL 5.5 HDL CHOLESTEROL 38 mg/dL L 40-60 Sep 17, 2023 07:56 AM [place] [facility] BASIC METABOLIC PANEL (non-fasting) Specimen Type: SERUM No comment entered. Ordering Provider: SUBHA VELAZQUEZ Report Released Date/Time: May 21, 2023 03:02 PM Reporting Lab: [facility] [address] [facility] [address] Performing Lab: [facility] [address] [facility] [address] UREA NITROGEN 30 mg/dL H 7-25 GLUCOSE [...] and tobacco- related health factors from the [place] facility where the Encounter took place. Current Smoking Status This section includes the most current smoking, or tobacco-related health factor, from the [place] facility where the Encounter took place. Date/Time Current Smoking Status Comment Louisa koenig May 19, 2023 01:00 PM VA-TOBACCO NEVER USED [facility] Tobacco Use History This section includes a history of the smoking, or tobacco-related health factors, that were collected on or before the date of the Encounter. The data comes from the [place] facility where the Encounter took place. Date/Time Smoking Status/Tobacco Use Comment Gisele villalobos June 17, 2022 01:00 PM VA-TOBACCO NEVER USED [place] [facility] Jul 16, 2021 01:00 PM VA-TOBACCO NEVER USED [place] [facility] July 03, 2020 01:00 PM VA-TOBACCO NEVER USED [place] [facility] Jul 11, 2019 02:57 PM VA-TOBACCO NEVER USED [place] [facility] Jan 14, 2019 08:50 AM VA-TOBACCO NEVER USED [place] [facility] Mar 04, 2018 01:20 PM VA-TOBACCO NEVER USED [place] [facility] May 27, 2017 11:01 AM LIFETIME NON-TOBACCO USER [place] [facility] May 20, 2016 10:51 AM LIFETIME NON-TOBACCO USER [place] [facility] May 03, 2015 01:13 PM LIFETIME NON-TOBACCO USER [place] CN[place] [facility] Advance Directives: All historical and current Section [...] ADVANCE DIRECTIVE MIGDALIA MILES [place] CN[place] [facility] Apr 14, 2019 ADVANCE DIRECTIVE RAFAL BULLARD [place] C NTRL WSN [facility] Encounter Notes: All associated encounter notes This section contains the clinical notes associated to the Encounter. Date/Time Encounter Note(s) Provider Source Oct 26, 2023 03:32 PM LETTERS: LOCAL TITLE: PATIENT LETTER (T) STANDARD TITLE: LETTERS DATE OF NOTE: OCT 26, 2023@15:32 ENTRY DATE: OCT 26, 2023@15:32:37 AUTHOR: SUBHA VELAZQUEZ COSIGNER: URGENCY: STATUS: COMPLETED [facility] Toll Free Number Primary Care Telephone Assistance can be reached at extension [phone] [facility] scheduling can be reached at extension [phone] [facility] scheduling can be reached at ext [phone] PRASANTH OGNZALES [address] [place] [address], [address] [address] [place], Holter monitor showed no worrisome arrhythmia. benign extra beats. recommend following up with your literacy coordinator Dr. Jones. HOLTER REPORT: Patient had a min HR of 46 bpm, max HR of 171 bpm, and avg HR of 69 bpm. Predominant underlying rhythm was Sinus Rhythm. 20 Supraventricular Tachycardia runs occurred, the run with the fastest interval lasting 8 beats with a max rate of 171 bpm, the longest lasting 11 beats with an avg rate of 105 bpm. Isolated SVEs were frequent (8.5%, [id number]), SVE Couplets were rare (<1.0%, 449), and SVE Triplets were rare (<1.0%, 146). Isolated VEs were rare (<1.0%, [address]34[address]), VE Couplets were rare (<1.0%, 96), and VE Triplets were rare (<1.0%, 7). Ventricular Bigeminy and Trigeminy were present. Final Interpretation S/N:[id number] At the time of the triggered events patient was noted to be in Sinus Pat was noted to have frequent episodes of SV Ectopy. Would recommend a cardiac evaluation after echocardiogram. Sincerely, Your Primary Care Team [facility] [address] [address] [place] [address] [phone] [facility] [address] [place] [address] [place] [address] [facility] [address] [facility] [place] [phone] [place] [address] SUBHA VELAZQUEZ [place] [facility]
--- OUTSIDE RECORDS SUMMARY | 2024-02-16 09:13 | XMS_ITS | Encounter Summary ---
Author Name [place] Address [address] [place] [address] Care Team Providers Care Lodging Facilities Attendant Name Role Phone SUBHA REY Primary Care [...] GREGORY DIOP Sep 15, 2011 GREGORY PUGA [id number] PAULA FENG PATIENT HEALTH [employer] MEDICARE SUPPLEMEN [employer] Aug 09, 2017 [id number] [phone] PAULA FENG PATIENT HEALTH [employer] MEDICARE SUPPLEMEN [employer] SUPP PL Aug 09, 2017 [id number] PAULA FENG PATIENT MEDICARE (WNR) MEDICARE (M) PART A Nov 10, 2019 PART A [id number] PAULA FENG PATIENT MEDICARE (WNR) MEDICARE (M) PART B Apr 09, 2010 PART B [id number] [id number] PAULA FENG PATIENT MEDICARE (WNR) MEDICARE (M) PART B Apr 09, 2010 PART B [id number] [id number] PAULA FENG PATIENT MEDICARE (WNR) MEDICARE (M) PART B Apr 09, 2010 PART B [id number] PAULA FEGN PATIENT MEDICARE (WNR) MEDICARE (M) PART A Nov 09, 2009 PART A [id number] PAULA FENG PATIENT MEDICARE (WNR) MEDICARE (M) PART A Nov 09, 2009 PART A [id number] [phone] PAULA FENG PATIENT Selected Encounter This section includes the information on record at [place] for the Encounter. Date/Time Encounter Type Encounter Description Reason Provider Source Oct 19, 2023 03:19 PM Outpatient Encounter PRIMARY CARE/MEDICINE LOGAN GONZALEZ Encounter Template Text not used by [place] Plan of Treatment: Future Appointments (+ 6 months) and Future Tests (+/- 45 days) The Plan of Treatment section includes future care activities for the patient from all [place] [facility]. This section includes future appointments [...] AMBULATORY - PSYCHIATRY [place] [facility] Oct 27, 2023 01:00 PM AMBULATORY - PSYCHIATRY [place] [facility] Nov 03, 2023 01:00 PM AMBULATORY - PSYCHIATRY [place] [facility] Nov 05, 2023 09:00 AM AMBULATORY - REHAB MEDICIN E [place] [facility] Nov 05, 2023 12:00 PM AMBULATORY - MEDICINE [place] C [place]L [place] [facility] Nov 10, 2023 01:00 PM AMBULATORY - PSYCHIATRY [place] [facility] Nov 17, 2023 01:00 PM AMBULATORY - PSYCHIATRY [place] [facility] Dec 01, 2023 01:00 PM AMBULATORY - PSYCHIATRY [place] [place] [facility] Dec 08, 2023 09:00 AM AMBULATORY - MEDICINE [place] C [place] [facility] Dec 08, 2023 09:01 AM AMBULATORY - [place]ICINE [place] [facility] Dec 08, 2023 01:00 PM AMBULATORY - PSYCHIATRY [place] [facility] Dec 15, 2023 09:00 AM AMBULATORY - NONE [place] [facility] [place] [facility] Dec 15, 2023 01:00 PM AMBULATORY - PSYCHIATRY [place] [facility] [place] [facility] Dec 29, 2023 04:00 PM AMBULATORY - PSYCHIATRY [place] [facility] [place] [facility] Jan 05, 2024 04:00 PM AMBULATORY - PSYCHIATRY [place] [facility] [place] [facility] Jan 26, 2024 04:00 PM AMBULATORY - PSYCHIATRY [place] [facility] [place] [facility] Feb 09, 2024 04:00 PM AMBULATORY - PSYCHIATRY [place] [facility] [place] [facility] Feb 16, 2024 09:00 AM AMBULATORY - MEDICINE [place] C [place] [facility] Feb 19, 2024 01:00 PM AMBULATORY - PSYCHIATRY [place] [facility] [place] [facility] Feb 23, 2024 04:00 PM AMBULATORY - PSYCHIATRY [place] [facility] [place] [facility] Social History: Smoking Status (Most [...] Date/Time Current Smoking Status Comment Facil liberty May 19, 2023 01:00 PM VA-TOBACCO NEVER USED [place] [facility] [place] [facility] Tobacco Use History This section includes a history of the smoking, or tobacco-related health factors, that were collected on or before the date of the Encounter. The data comes from the [place] facility where the Encounter took place. Date/Time Smoking Status/Tobacco Use Comment F accynthia June 17, 2022 01:00 PM VA-TOBACCO NEVER USED [place] [facility] [place] [facility] Jul 16, 2021 01:00 PM VA-TOBACCO NEVER USED [place] [facility] [place] [facility] July 03, 2020 01:00 PM VA-TOBACCO NEVER USED [place] [facility] [place] [facility] Jul 11, 2019 02:57 PM VA-TOBACCO NEVER USED [place] [facility] [place] [facility] Jan 14, 2019 08:50 AM VA-TOBACCO NEVER USED [place] [facility] [place] [facility] Mar 04, 2018 01:20 PM VA-TOBACCO NEVER USED [place] [facility] [place] [facility] May 27, 2017 11:01 AM LIFETIME NON-TOBACCO USER [place] [facility] [place] [facility] May 20, 2016 10:51 AM LIFETIME NON-TOBACCO USER [place] [facility] [place] [facility] May 03, 2015 01:13 PM LIFETIME NON-TOBACCO USER [place] [facility] [place] [facility] Advance Directives: All historical and [...] DIRECTIVE MIGDALIA MILES [place] [facility] [facility] Apr 14, 2019 ADVANCE DIRECTIVE RAFAL BULLARD [place] C NTRL [place] [facility] Encounter Notes: All associated encounter notes This section contains the clinical notes associated to the Encounter. Date/Time Encounter Note(s) Provider Source Oct 19, 2023 03:19 PM PRIMARY CARE SECUR E MESSAGING: LOCAL TITLE: PRIMARY CARE SECURE MESSAGING STANDARD TITLE: PRIMARY CARE SECURE MESSAGING DATE OF NOTE: OCT 19, 2023@15:19 ENTRY DATE: OCT 19, 2023@15:19:58 AUTHOR: LOGAN GONZALEZ COSIGNER: URGENCY: STATUS: COMPLETED ------Original Message ------ Sent: 10/18/2023 02:32 PM ET From: PRASANTH FENG To: Stephanie REY _ PRIMARY CARE_[facility] Subject: Medication:AMOXICILLIN 500MG CAP Dear Dr. Rey, Could you please add this medication to my prescription list. 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 Thank you, Prasanth eFng [id number] [facility] ------Original Message ------ Sent: 10/19/2023 03:19 PM ET From: LOGAN GONZALEZ To: PRASANTH FENG Subject: Medication:AMOXICILLIN 500MG CAP Good Afternoon Mr. Feng, I will alert Dr. Rey to your request. Do you have an upcoming dental appointment? We could potentially fill this for you only when required for dental appointments. Do you have any documentation from the dentist stating that they are requesting this ? Respectfully, Logan Gonzalez RN /rosio/ LOGAN GONZALEZ RN REGISTERED NURSE Signed: 10/19/2023 15:19 LOGAN GONZALEZ [place] [facility]
--- OUTSIDE RECORDS SUMMARY | 2024-02-16 09:13 | XMS_ITS | Encounter Summary ---
Author Name [facility] [place] Address [address] [place] [address] Care Team Providers Care Repairer Cylinder Heads Name Role Phone SUBHA VELAZQUEZ Primary Care [...] GREGORY DIOP Sep 15, 2011 GREGORY PUGA [id number] PAULA GONZALES PATIENT [facility] Aug 09, 2017 [id number] PAULA GONZALES PATIENT [facility] SU[facility] PL Aug 09, 2017 [id number] PAULA GONZALES PATIENT MEDICARE (WNR) MEDICARE (M) PART A Nov 10, 2019 PART A [id number] PAULA GONZALES PATIENT MEDICARE (WNR) MEDICARE (M) PART B Apr 09, 2010 PART B [id number] PAULA GONZALES PATIENT MEDICARE (WNR) MEDICARE (M) PART B Apr 09, 2010 PART B [id number] PAULA GONZALES PATIENT MEDICARE (WNR) MEDICARE (M) PART B Apr 09, 2010 PART B [id number] PAULA GONZALES PATIENT MEDICARE (WNR) MEDICARE (M) PART A Nov 09, 2009 PART A [id number] PAULA GONZALES PATIENT MEDICARE (WNR) MEDICARE (M) PART A Nov 09, 2009 PART A [id number] PAULA GONZALES PATIENT Selected Encounter This section includes the information on record at [place] for the Encounter. Date/Time Encounter Type Encounter Description Reason Provider Source Nov 05, 2023 09:00 AM HEARING AID REPAIR/MODIFYIN G AUDIOLOGY ICD-10-CM Z46.1 Encounter for fitting and adjustment of hearing aid MAGALYS GUZMAN Mikhail Encounter Template Text not used by [place] Assessments - Encounter Diagnoses This section includes the primary and secondary diagnoses documented for the Encounter. Date/Time Primary/Secondary Diagnosis Diagnosis Name Provider Source Nov 05, 2023 09:28 AM PRIMARY Encounter for fitting and adjustment of hearing aid CAMILLA GUZMAN [facility] Nov 05, 2023 09:28 AM SECONDARY Sensorineural hearing loss, bilateral CAMILLA GUZMAN [facility] Plan of Treatment: Future Appointments (+ 6 months) and Future Tests (+/- 45 days) The Plan of Treatment section includes future care activities for the patient from all [place] [facility]. This section includes future appointments and future orders which are active, pending or scheduled. Future Appointments This section includes appointments that were scheduled to occur 6 months from the date of the Encounter, up to a maximum of 20 appointments. The data comes from all [place] treatment facilities. Appointment Date/Time Appointment Type Appointme nt Facility Name Nov 10, 2023 01:00 PM [facility] Nov 17, 2023 01:00 PM AM[facility] Dec 01, 2023 01:00 PM AM[facility]UL[facility] [place] [facility] Dec 08, 2023 09:00 AM AMBULATORY - MEDICINE [facility] [place] [facility] Dec 08, 2023 09:01 AM [facility] [place]IC[place] [facility] [place] [facility] Dec 08, 2023 01:00 PM AMBULATORY - PS[facility]CHIATRY [facility] [place] [facility] Dec 15, 2023 09:00 AM AMBULATORY - NONE [facility] [place] [facility] Dec 15, 2023 01:00 PM AMBULATORY - PS[facility]CHIATRY [facility] [place] [facility] Dec 29, 2023 04:00 PM AMBULATORY - PS[facility]CHIATRY [facility] [place] [facility] Jan 05, 2024 04:00 PM AMBULATORY - PS[facility]CHIATRY [facility] [place] [facility] Jan 26, 2024 04:00 PM AMBULATORY - PSYCHIATRY [facility] [place] [facility] Feb 09, 2024 04:00 PM AMBULATORY - PSYCHIATRY [facility] [place] [facility] Feb 16, 2024 09:00 AM AMBULATORY - MEDICINE [facility] [place] [facility] Feb 19, 2024 01:00 PM AMBULATORY - PSYCHIATRY [facility] [place] [facility] Feb 23, 2024 04:00 PM AMBULATORY - PSYCHIATRY [facility] [place] [facility] Mar 01, 2024 04:00 PM AMBULATORY - PS[facility]CHIATRY [facility] [place] [facility] Mar 29, 2024 09:00 AM AMBULATORY - MEDICINE [facility] [place] [facility] Social History: Smoking Status [...] 19, 2023 01:00 PM VA-TOBACCO [facility] USED [facility] [place] [facility] Tobacco Use History This section includes a history of the smoking, or tobacco-related health factors, that were collected on or before the date of the Encounter. The data comes from the [place] facility where the Encounter took place. Date/Time Smoking Status/Tobacco Use Comment F acility June 17, 2022 01:00 PM VA-TOBACCO NEVER USED [facility] [place] [facility] Jul 16, 2021 01:00 PM VA-TOBACCO NEVER USED [facility] [place] [facility] July 03, 2020 01:00 PM VA-TOBACCO NEVER USED [facility] [place] [facility] Jul 11, 2019 02:57 PM VA-TOBACCO NEVER USED [facility] [place] [facility] Jan 14, 2019 08:50 AM VA-TOBACCO NEVER USED [facility] [place] [facility] Mar 04, 2018 01:20 PM VA-TOBACCO NEVER USED [facility] [place] [facility] May 27, 2017 11:01 AM LIFETIME NON-TOBACCO USER [facility] [place] [facility] May 20, 2016 10:51 AM LIFETIME NON-TOBACCO USER [facility] [place] [facility] May 03, 2015 01:13 PM LIFETIME NON-TOBACCO USER [facility] [place] [facility] Advance Directives: All historical [...] DIRECTIVE MIGDALIA MILES [place] [facility] [place] [facility] Apr 14, 2019 ADVANCE DIRECTIVE RAFAL BULLARD [place] [facility] [place] [facility] Encounter Notes: All associated encounter notes This section contains the clinical notes associated to the Encounter. Date/Time Encounter Note(s) Provider Source Nov 05, 2023 07:19 AM AUDIOLOGY E & M NO TE: LOCAL TITLE: AUDIOLOGY CLINIC STANDARD TITLE: AUDIOLOGY E & M NOTE DATE OF NOTE: NOV 05, 2023@07:19 ENTRY DATE: NOV 05, 2023@07:19:12 AUTHOR: MAGALYS GUZMAN COSIGNER: URGENCY: STATUS: COMPLETED Dx CODE: Z46.1-Encounter for Fitting/Adjusting Hearing Aid(s); H90.3- Sensorineural Hearing Loss, Bilateral APPOINTMENT TYPE: Hearing Aid Maintenance Check HISTORY/BACKGROUND: The patient was seen for a hearing aid maintenance check appointment, unaccompanied. He was fit with Clarisse Evolv AI BTEs on 07/22/22. He was scheduled today for routine maintenance. Additionally, he request counseling on opening the new child proof battery packages. [place] was shown how to cut into child proof battery packages. He had no further questions. Thin tubes and microphone covers replaced. Biocheck was good. He reports satisfaction with fit and sound quality AU. PLAN/RECOMMENDATION(S): 1. Follow up as needed. /rosio/ MAGALYS GUZMAN STAFF RUBBER BELT SPLICER Signed: 11/05/2023 09:29 MAGALYS GUZMAN [facility]
--- OUTSIDE RECORDS SUMMARY | 2024-02-16 09:13 | XMS_ITS | Encounter Summary ---
Author Name [facility] [place] Address [address] [place] [address] Care Team Providers Care Land Economist Name Role Phone SUBHA VELAZQUEZ Primary Care [...] GREGORY DIOP Sep 15, 2011 GREGORY PUGA [id number] [phone] PAULA GONZALES PATIENT [facility] MEDICARE [facility]MEN [facility] Aug 09, 2017 [id number] PAULA GONZALES PATIENT [facility] [place] MEDICARE SUPPLEMEN [facility] SUPP [address] Aug 09, 2017 [id number] [phone] PAULA GONZALES PATIENT MEDICARE (WNR) MEDICARE (M) PART A Nov 10, 2019 PART A [id number] PAULA GONZALES PATIENT MEDICARE (WNR) MEDICARE (M) PART B Apr 09, 2010 PART B [id number] PAULA GONZALES PATIENT MEDICARE (WNR) MEDICARE (M) PART B Apr 09, 2010 PART B [id number] PAULA GONZALES PATIENT MEDICARE (WNR) MEDICARE (M) PART B Apr 09, 2010 PART B [id number] PAULA GONZALES PATIENT MEDICARE (WNR) MEDICARE (M) PART A Nov 09, 2009 PART A [id number] PAULA GONZALES PATIENT MEDICARE (WNR) MEDICARE (M) PART A Nov 09, 2009 PART A [id number] PAULA GONZALES PATIENT Selected Encounter This section includes the information on [place] at [place] for the Encounter. Date/Time Encounter Type Encounter Description Reason Provider Source Oct 27, 2023 01:00 PM PSYTX W PT 60 MINUTES MENTAL [facility] CLINIC - IND ICD-10-CM F43.10 Post-traumatic stress disorder, unspecified NATHAN KIRK Mikhail Encounter Template Text not used by [place] Assessments - Encounter Diagnoses This section includes the primary and secondary diagnoses documented for the Encounter. Date/Time Primary/Secondary Diagnosis Diagnosis Name Provider Source Oct 30, 2023 09:48 PM PRIMARY Post-traumatic stress disorder, unspecified NATHAN KIRK [facility] Plan of Treatment: Future Appointments (+ 6 months) and Future Tests (+/- 45 days) The Plan of Treatment section includes future care activities for the patient from all [place] treatmentfacilities. This section includes future appointments and future orders which are active, pending or scheduled. Future Appointments This section includes appointments that were scheduled to occur 6 months from the date of the Encounter, up to a maximum of 20 appointments. The data comes from all [place] treatment facilities. Appointment Date/Time Appointment Type Appointme nt Facility Name Nov 03, 2023 01:00 PM [facility] Nov 05, 2023 09:00 AM [facility] [place] [facility] Nov 05, 2023 12:00 PM [facility] Nov 10, 2023 01:00 PM AMBULATORY - PSYCHIATRY [facility] [place] [facility] Nov 17, 2023 01:00 PM AMBULATORY - PSYCHIATRY [facility] [place] [facility] Dec 01, 2023 01:00 PM AMBULATORY - PSYCHIATRY [facility] [place] [facility] Dec 08, 2023 09:00 AM AMBULATORY - MEDICINE [facility] [place] [facility] Dec 08, 2023 09:01 AM AMBULATORY - MEDICINE [facility] [place] [facility] Dec 08, 2023 01:00 PM AMBULATORY - PSYCHIATRY [facility] [place] [facility] Dec 15, 2023 09:00 AM AMBULATORY - NONE [facility] [place] [facility] Dec 15, 2023 01:00 PM AMBULATORY - PSYCHIATRY [facility] [place] [facility] Dec 29, 2023 04:00 PM AMBULATORY - PSYCHIATRY [facility] [place] [facility] Jan 05, 2024 04:00 PM AMBULATORY - PSYCHIATRY [facility] [place] [facility] Jan 26, 2024 04:00 PM AMBULATORY - PSYCHIATRY [facility] [place] [facility] Feb 09, 2024 04:00 PM AMBULATORY - PSYCHIATRY [facility] [place] [facility] Feb 16, 2024 09:00 AM AMBULATORY - MEDICINE [facility] [place] [facility] Feb 19, 2024 01:00 PM AMBULATORY - PSYCHIATRY [facility] [place] [facility] Feb 23, 2024 04:00 PM AMBULATORY - PSYCHIATRY [facility] [place] [facility] Mar 01, 2024 04:00 PM AMBULATORY - PSYCHIATRY [facility] [place] [facility] Mar 29, 2024 09:00 AM AMBULATORY - MEDICINE [facility] [place] [facility] Social History: Smoking Status (Most [...] 01:00 PM [facility]AC[facility] Tobacco Use History This section includes [...] [place] [facility] Jul 16, 2021 01:00 PM VA-TOBACCO NEVER USED [facility] [place] [facility] July 03, 2020 01:00 PM VA-TOBACCO NEVER USED [facility] [place] [facility] Jul [...] LIFETIME NON-TOBACCO USER [facility] [place] [facility] May 20, 2016 10:51 AM LIFETIME NON-TOBACCO USER [facility] [place] [facility] May 03, 2015 01:13 PM LIFETIME NON-TOBACCO USER [facility] [place] [facility] Advance [...] DIRECTIVE MIGDALIA MILES [place] [facility] [place] [facility] Apr 14, 2019 ADVANCE DIRECTIVE RAFAL BULLARD [place] [facility] [place] [facility] Encounter Notes: All associated encounter notes This section contains the clinical notes associated to the Encounter. Date/Time Encounter Note(s) Provider Source Oct 27, 2023 01:13 PM MENTAL HEALTH DIAG NOSTIC STUDY NOTE: LOCAL TITLE: MENTAL HEALTH DIAGNOSTIC STUDY STANDARD TITLE: MENTAL HEALTH DIAGNOSTIC STUDY NOTE DATE OF NOTE: OCT 27, 2023@13:13:28 ENTRY DATE: OCT 27, 2023@13:13:28 AUTHOR: NATHAN KIRK EXP COSIGNER: URGENCY: STATUS: COMPLETED These assessments were completed by PRASANTH GONZALES via provider direct entry on 10/27/2023 1:12:27 PM. PTSD CHECKLIST (PCL-5) - WEEKLY Patient [...] numb: A little bit 15. Feeling irritable: A little bit 16. Reckless behavior: Not at all 17. Being super-alert : Not at all 18. Feeling easily startled: Not at all 19. Difficulty concentrating: A little bit 20. Trouble sleeping: A little bit PCL-5 total score = 8 This measure assesses an individual's perception of [...] PCL-5 Weekly Total Score (past 180 days): 10/27/2023 8 10/20/2023 9 09/29/2023 7 09/15/2023 4 09/01/2023 7 08/11/2023 9 06/30/2023 10 05/19/2023 Gautam /rosio/ NATHAN KIRK, Ph.D Clinical Psychologist Signed: 10/28/2023 08:31 [facility] KIRK [facility] [place] [facility] Oct 27, 2023 01:02 PM TELEHEALTH NOTE: LOCAL TITLE: [place] VIDEO CONNECT PSYCHOLOGY NOTE STANDARD TITLE: TELEHEALTH NOTE DATE OF NOTE: OCT 27, 2023@13:02 ENTRY DATE: OCT 27, 2023@13:02:33 AUTHOR: NATHAN KIRK EXP COSIGNER: URGENCY: STATUS: COMPLETED [place] Video Connect (VVC) Standard Documentation VVC Clinician Resources Only: E911 (Emergency Call Relay Center): [phone] [facility] Crisis Line - [address] #[address] [facility] Suicide Coordinator [phone], Ext. [phone]; Back-up Ext. [phone] [place] Police, [place] JOSHUA [phone] Introduction: Visit is being conducted by [place] [employer] technology. identified with 2 identifiers: [X] Full Name [ ] Date of [ ] VA ID Card [X] Visual Recognition Emergency Plan: confirmed and/or provided the following information in case of emergency or technology failure. PATIENT PHONE - PHONE NUMBER [CELLULAR] - Is patient phone number correct, if not, enter below: [place]'s phone number: PRASANTH Gael JANET [address], [place], [address] [place]'s present location and address for appointment: [address] [place] [address]. [place] [address] 's emergency contact name and phone number: Layla Janet reported that location is private and safe: Yes Informed Consent: informed of the risks and benefits of Telehealth video care. [place] has the right to refuse video services. If refuses video visit, a [id number] visit will be scheduled. 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 [...] completion and review of the PCL-5 (Score: 8). The remainder of the session focused on memories and experiences from [place]. 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 He shared details regarding specific traumatic events and what the transition from [place] back to the [place] was like. shared that he now recognizes how avoidance played a part of his life when he was busy working and raising a family, and how things changed after he retired and things slowed down. Will revisit next session. INTERVENTIONS: Process thoughts [...] PLAN FOR FOLLOW-UP: Next session planned for: 11/03/23 at 1:00pm /rosio/ NATHAN KIRK, Ph.D Clinical Psychologist Signed: 10/30/2023 21:48 NATHAN KIRK [place] [facility]
--- OUTSIDE RECORDS SUMMARY | 2024-02-16 09:14 | XMS_ITS | Encounter Summary ---
Author Name [facility] [place] [facility] [place] Organization [facility] [place] Address [address] [place] [address] Care Team Providers Care Boiler Room Operator Name Role Phone SUBHA VELAZQUEZ Primary [...] Relationship to Policy Bryson GREGORY PUGA-WN R [place] SPECIAL CLASS GREGORY DIOP Sep 15, 2011 GREGORY PUGA [id number] PAULA GONZALES PATIENT [facility] [place] MEDICARE SUPPLEMEN [facility] [employer] [facility] Aug 09, 2017 [id number] [phone] PAULA GONZALES PATIENT [facility] [place] MEDICARE SUPPLEMEN [facility] SUPP [facility] Aug 09, 2017 [id number] [phone] PAULA GONZALES PATIENT MEDICARE (WNR) MEDICARE (M) PART A Nov 10, 2019 PART A [id number] PAULA GONZALES PATIENT MEDICARE (WNR) MEDICARE (M) PART B Apr 09, 2010 PART B [id number] GR59 PAULA GONZALES PATIENT MEDICARE (WNR) MEDICARE (M) PART B Apr 09, 2010 PART B [id number] GR59 PAULA GONZALES PATIENT MEDICARE (WNR) MEDICARE (M) PART B Apr 09, 2010 PART B [id number] [phone] PAULA GONZALES PATIENT MEDICARE (WNR) MEDICARE (M) PART A Nov 09, 2009 PART A [id number] [id number] PAULA GONZALES PATIENT MEDICARE (WNR) MEDICARE (M) PART A Nov 09, 2009 PART A [id number] PAULA GONZALES PATIENT Selected Encounter This section includes the information on record at [place] for the Encounter. Date/Time Encounter Type Encounter Description Reason Provider Source Nov 09, 2023 04:28 PM COLLJ & INTERPJ DATA EA 30 D TELEPHONE/MEDICINE ICD-10-CM G47.39 Other sleep apnea PHILLIP GILL Mikhail Encounter Template Text not used by [place] Assessments - Encounter Diagnoses This section includes the primary and secondary diagnoses documented for the Encounter. Date/Time Primary/Secondary Diagnosis Diagnosis Name Provider Source Nov 09, 2023 04:28 PM PRIMARY Other sleep apnea PHILLIP GILL [place] Plan of Treatment: Future Appointments (+ 6 months) and Future Tests (+/- 45 days) The Plan of Treatment section includes future care activities for the patient from all [place] treatmentfacilities. This section includes future appointments and future orders which are active, pending or scheduled. Future Appointments This section includes appointments that were scheduled to occur 6 months from the date of the Encounter, up to a maximum of 20 appointments. The data comes from all [place] treatment facilities. Appointment Date/Time Appointment Type Appointme nt Facility Name Nov 10, 2023 01:00 PM AMBULATORY - PSYCHIATRY [place] [facility] [place] [facility] Nov 17, 2023 01:00 PM AMBULATORY - PSYCHIATRY [place] [facility] [place] [facility] Dec 01, 2023 01:00 PM AMBULATORY - PSYCHIATRY [place] [facility] [place] [facility] Dec 08, 2023 09:00 AM AMBULATORY - MEDICINE [place] [facility] [place] [facility] Dec 08, 2023 09:01 AM AMBULATORY - MEDICINE [facility] [place] [facility] Dec 08, 2023 01:00 PM AMBULATORY - PSYCHIATRY [facility] [place] [facility] Dec 15, 2023 09:00 AM AMBULATORY - NONE [facility] [place] [facility] Dec 15, 2023 01:00 PM AMBULATORY - PSYCHIATRY [facility] [place] [facility] Dec 29, 2023 04:00 PM AMBULATORY - PSYCHIATRY [facility] [place] [facility] Jan 05, 2024 04:00 PM AMBULATORY - PSYCHIATRY [facility] [place] [facility] Jan 26, 2024 04:00 PM AMBULATORY - PSYCHIATRY [facility] [place] [facility] Feb 09, 2024 04:00 PM AMBULATORY - PSYCHIATRY [facility] [place] [facility] Feb 16, 2024 09:00 AM AMBULATORY - MEDICINE [facility] [place] [facility] Feb 19, 2024 01:00 PM AMBULATORY - PSYCHIATRY [facility] [place] [facility] Feb 23, 2024 04:00 PM AMBULATORY - PSYCHIATRY [facility] [place] [facility] Mar 01, 2024 04:00 PM AMBULATORY - PSYCHIATRY [facility] [place] [facility] Mar 29, 2024 09:00 AM AMBULATORY - MEDICINE [place] [facility] [place] [facility] Active, Pending, and Scheduled Orders This section includes a listing of several types of active, pending, and scheduled orders, including clinic medications orders, diagnostic test orders, procedure orders and consult orders; where the start date of the order is 45 days before the date of the Encounter or 45 days after the date of theEncounter. The data comes from all [place] treatment facilities. Test Date/Time Test Type Test Details Facility Name Dec 23, 2023 08:28 AM Consult Order COMMUNITY CARE-DENTAL GENERAL Cons Care Mgr's Choice [place] [facility] [place] [facility] Social History: Smoking Status (Most current) and Tobacco Use (All prior to encounter date) This section includes the most current, and the historical, smoking and tobacco- related health factors from the [place] facility where the Encounter took place. Current Smoking Status This section includes the most current smoking, or tobacco-related health factor, from the [place] facility where the Encounter took place. Date/Time Current Smoking Status Comment Louisa koenig Jul 17, 2000 02:08 PM LIFETIME NON-SMOKER [place] Advance Directives: All historical and current Section Date Range: From patient's date of to the date document was created. This section includes ALL of a patient's completed or amended [place] Advance and Rescinded Directives. The entries below indicate that a directive exists for the patient, but an actual copy is not included with this document. The data comes from all [place] facilities. Date Advance Directives Provider Source Nov 08, 2019 ADVANCE DIRECTIVE MIGDALIA MILES [place] [facility] Apr 14, 2019 ADVANCE DIRECTIVE JUAN MIGUELRAFAL Elizondo [place] C [facility] Encounter Notes: All associated encounter notes This section contains the clinical notes associated to the Encounter. Date/Time Encounter Note(s) Provider Source Nov 09, 2023 04:28 PM SLEEP MEDICINE NOT E: LOCAL TITLE: CPAP CLINIC NOTE STANDARD TITLE: SLEEP MEDICINE NOTE DATE OF NOTE: NOV 09, 2023@16:28 ENTRY DATE: NOV 09, 2023@16:29:03 AUTHOR: PHILLIP GILL EXP COSIGNER: URGENCY: STATUS: COMPLETED Telephone Coding and Documentation: Diagnosis: Sleep Apnea Time spent with Patient via telephone: 10 minutes. has concerns his machine isn't working like it should anymore so we reviewed data for the last 90 days. He was informed he has a very large leak in his mask and it's most likely waking him up. He agreed and would like to try a different type mask so he was ordered the N30i nasal mask. [place] instructed how to apply and adjust mask and to be sure he tries the right size cushion. He was advised to let us know how it works out and we can order more cushions. /rosio/ PHILLIP GILL LICENSED [employer] AGENTS RESPIRATORY THERAPIST Signed: 11/09/2023 16:34 PHILLIP GILL
--- OUTSIDE RECORDS SUMMARY | 2024-02-16 09:14 | XMS_ITS | Encounter Summary ---
Author Name Department of [facility] [place] [facility] ([place] Organization Department of [place]) Address [address] [place] [address] Care Team Providers Care Store Facility Technician Name Role Phone SUBHA VELAZQUEZ Primary [...] GREGORY DIOP Sep 15, 2011 GREGORY PUGA [id number] PAUAL FENG PATIENT [facility] [place] MEDICARE SUPPLEMEN [facility] Aug 09, 2017 [id number] PAULA FENG PATIENT [facility] [place] MEDICARE SUPPLEMEN [facility] Aug 09, 2017 [id number] PAULA FENG PATIENT MEDICARE (WNR) MEDICARE (M) PART A Nov 10, 2019 PART A [id number] PAULA FENG PATIENT MEDICARE (WNR) MEDICARE (M) PART B Apr 09, 2010 PART B [id number] PAULA FEGN PATIENT MEDICARE (WNR) MEDICARE (M) PART B Apr 09, 2010 PART B [id number] PAULA FENG PATIENT MEDICARE (WNR) MEDICARE (M) PART B Apr 09, 2010 PART B [id number] PAULA FENG PATIENT MEDICARE (WNR) MEDICARE (M) PART A Nov 09, 2009 PART A [id number] PAULA FENG PATIENT MEDICARE (WNR) MEDICARE (M) PART A Nov 09, 2009 PART A [id number] PAULA FENG PATIENT Selected Encounter This section includes the information on record at OR for the Encounter. Date/Time Encounter Type Encounter Description Reason Provider Source Dec 01, 2023 01:00 PM PSYTX W PT 45 MINUTES [facility] - IND ICD-10-CM F43.10 Post-traumatic stress disorder, unspecified NATHAN KIRK Mikhail Encounter Template Text not used by [place] Assessments - Encounter Diagnoses This section includes the primary and secondary diagnoses documented for the Encounter. Date/Time Primary/Secondary Diagnosis Diagnosis Name Provider Source Dec 03, 2023 12:31 PM PRIMARY Post-traumatic stress disorder, unspecified NATHAN KIRK [facility] Plan of Treatment: Future Appointments (+ [...] Appointment Type Appointme nt Facility Name Dec 08, 2023 09:00 AM [facility] [place] [facility] Dec 08, 2023 09:01 AM AMBULATORY - MEDICINE [facility] Dec 08, 2023 01:00 PM AMBULATORY - [facility]CHIAT[facility] Dec 15, 2023 09:00 AM [facility] [place] [facility] Dec 15, 2023 01:00 PM AMBULATORY - PSYCHIATRY [facility] [place] [facility] Dec 29, 2023 04:00 PM AMBULATORY - PSYCHIATRY [place] [facility]TR[facility] [facility] Jan 05, 2024 04:00 PM AMBULATORY - PSYCHIATRY [place] [facility] [place] [facility] Jan 26, 2024 04:00 PM AMBULATORY - PSYCHIATRY [place] [facility] [place] [facility] Feb 09, 2024 04:00 PM AMBULATORY - PSYCHIATRY [place] [facility] [facility] Feb 16, 2024 09:00 AM AMBULATORY - MEDICINE OR C NTRL [facility] [facility] Feb 19, 2024 01:00 PM AMBULATORY - PSYCHIATRY [place] [facility] [place] [facility] Feb 23, 2024 04:00 PM AMBULATORY - PSYCHIATRY OR [facility] [facility] Mar 01, 2024 04:00 PM AMBULATORY - PSYCHIATRY [place] [facility]TRL [facility] [facility] Mar 29, 2024 09:00 AM AMBUL[facility] Active, Pending, and Scheduled Orders This [...] AM Consult Order COMMUNITY CARE-DENTAL GENERAL Cons Director Of Investigations's Choice [facility] Social History: Smoking Status (Most current) [...] 19, 2023 01:00 PM VA-TOBACCO NEVER USED [facility] Tobacco Use History This section includes a history of the smoking, or tobacco-related health factors, that were collected on or before the date of the Encounter. The data comes from the [place] facility where the Encounter took place. Date/Time Smoking Status/Tobacco Use Comment F accynthia June 17, 2022 01:00 PM VA-TOBACCO NEVER USED VA CN[facility] [place] [facility] Jul 16, 2021 01:00 PM VA-TOBACCO NEVER USED VA CNTR[facility] [place] [facility] July 03, 2020 01:00 PM VA-TOBACCO NEVER USED VA CNTR[facility] [facility] Jul 11, 2019 02:57 PM VA-TOBACCO NEVER USED VA CNTR[facility] [place] [facility] Jan 14, 2019 08:50 AM VA-TOBACCO NEVER USED VA CNTR[facility] [place] [facility] Mar 04, 2018 01:20 PM VA-TOBACCO NEVER USED VA CNTRL [facility] [facility] May 27, 2017 11:01 AM LIFETIME NON-TOBACCO USER VA [facility]TR[facility] [facility] May 20, 2016 10:51 AM LIFETIME NON-TOBACCO USER [place] CNTR[facility] [place] [facility] May 03, 2015 01:13 PM LIFETIME NON-TOBACCO USER VA [facility]TR[facility] [place] [facility] Advance Directives: All historical and current [...] DIRECTIVE MIGDALIA MILES [place] CNTRL [facility] [facility] Apr 14, 2019 ADVANCE DIRECTIVE RAFAL BULLARD OR C NTRL [facility] [place] [facility] Encounter Notes: All associated encounter notes This section contains the clinical notes associated to the Encounter. Date/Time Encounter Note(s) Provider Source Dec 01, 2023 01:02 PM TELEHEALTH NOTE: LOCAL TITLE: VA VIDEO CONNECT PSYCHOLOGY NOTE STANDARD TITLE: TELEHEALTH NOTE DATE OF NOTE: DEC 01, 2023@13:02 ENTRY DATE: DEC 01, 2023@13:02:34 AUTHOR: NATHAN KIRK EXP COSIGNER: URGENCY: STATUS: COMPLETED A Video Connect (VVC) Standard Documentation VVC Clinician Resources Only: E911 (Emergency Call Relay Center): [phone] National Veterans Crisis Line - 988 then press #1. [facility] Suicide Coordinator [phone], Ext. [phone]; Back-up Ext. [phone] [place] Police, Napoleon JOSHUA [phone] Introduction: Visit is being conducted by [place] Video Connect. identified with 2 identifiers: [X] Full Name [ ] Date of [ ] VA ID Card [X] Visual Recognition Emergency Plan: Alicia confirmed and/or provided the following information in case of emergency or technology failure. PATIENT PHONE - PHONE NUMBER [CELLULAR] - Is patient phone number correct, if not, enter below: Alicia's phone number: PRASANTH FENG [address], [place], [address] Alicia's present location and address for appointment: [address] [place] [address]. [place] [address] 's emergency contact name and phone number: Layla Feng Alicia reported that location is private and safe: Yes Informed Consent: Alicia informed of the risks and benefits of Telehealth video care. has the right to refuse video services. If refuses video visit, a [id number] visit will be scheduled. 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 Provided Suicide Prevention Hotline number, and other contact numbers as necessary. VISIT DURATION: 45 Minutes DIAGNOSIS: PTSD [employer]ETERANS STATEMENT OF GOALS/CONCERNS: Reduce irritability, avoidance, work on current challenges (including medical issues, particularly, cancer diagnosis), relationship issues, increase. meaningful activities and remain connected with people he is close to. SESSION FOCUS: Session focused on recent challenges, including, receiving bills for $3000 for an X-ray, ultra sound, lab work and injections for his 4 month old puppy, Silvestre. Alicia stated that it appeared his puppy had swallowed something that may have been harmful after his behaviors changed, and had to be medically assessed. He shared that his puppy was determined to be fine, with some dehydration. plans to apply for medical insurance for Silvestre in the very near future. He shared that he was relieved to know that Silvestre is okay as he has grown very fond of him and that he makes a big difference in his life. Addressed balance in 's life and explored changes he could make to enrich life experiences, including more time for enjoyable activities with family and friends, traveling to his cabin in [place], and home projects that he enjoys. The remainder of the session focused on navigating challenges within his marital relationship, including effective communication skills and addressing issues with his that are important to him. INTERVENTIONS: Identified meaningful activities to balance and enrich life experiences, explored trying new things, worked on communication skills, ways to connect, and revisited idea of couple's therapy. ASSESSMENT: BRIEF ASSESSMENT OF MENTAL STATUS: 1. [...] PLAN FOR FOLLOW-UP: Next session planned for: 12/08/23 at 1:00pm Completed Clinical Reminders: Suicide Screen: C-SSRS Screening [place]-Suicide Severity Rating Scale (C-SSRS Screener) 1. Over the past month, have you wished you were or wished you could go to sleep and not wake up? No 2. Over the past month, have you had any actual thoughts of killing yourself? No 3. Over the past month, have you been thinking about how you might do this? Response not required due to responses to other questions. 4. Over the past month, have you had these thoughts and had some intention of acting on them? Response not required due to responses to other questions. 5. Over the past month, have you started to work out or worked out the details of how to kill yourself? Response not required due to responses to other questions. 6. If yes, at any time in the past month did you intend to carry out this plan? Response not required due to responses to other questions. 7. In your lifetime, have you ever done anything, started to do anything, or prepared to do anything to end your life (for example, collected pills, obtained a gun, gave away valuables, went to the roof but didn't jump)? No 8. If YES, was this within the past 3 months? Response not required due to responses to other questions. Alcohol Use Screen (AUDIT-C): Alcohol Screen: SCREEN FOR ALCOHOL (AUDIT-C) An alcohol screening test (AUDIT-C) was negative (score=0). 1. How often did you have a drink containing alcohol in the past year? Consider a drink to be a 12 ounce can or bottle of regular beer, 8 ounces of malt liquor, a 5 ounce glass of table wine, or a 1.5 ounce shot of liquor (like scotch, gin, or vodka). Never 2. How many drinks containing alcohol did you have on a typical day when you were drinking in the past year? Response not required due to responses to other questions. 3. How often did you have six or more drinks on one occasion in the past year? Response not required due to responses to other questions. Sexual Orientation: The patient thinks of their sexual orientation as: Straight or Heterosexual /rosio/ NATHAN KIRK, Ph.D Clinical Psychologist Signed: 12/03/2023 12:31 NATHAN KIRK CNTRL [facility]
--- OUTSIDE RECORDS SUMMARY | 2024-02-16 09:14 | XMS_ITS ---
Author Name Department of Veter[facility] Affairs ([place]) Organization Department of Veter[place] [facility] [place]) Address [address] [place] [address] Care Team Providers Care Sock Folder Name Role Phone SUBHA VELAZQUEZ Primary [...] GREGORY DIOP Sep 15, 2011 GREGORY PUGA [id number] [phone] PAULA GONZALES PATIENT [facility] MEDICARE SUPPLEMEN [facility] [employer] [facility] Aug 09, 2017 [id number] [phone] PAULA GONZALES PATIENT [facility]MEN [facility] Aug 09, 2017 [id number] [phone] PAULA GONZALES PATIENT MEDICARE (WNR) MEDICARE (M) PART A Nov 10, 2019 PART A [id number] PAULA GONZALES PATIENT MEDICARE (WNR) MEDICARE (M) PART B Apr 09, 2010 PART B [id number] [phone] [id number] PAULA GONZALES PATIENT MEDICARE (WNR) MEDICARE (M) PART B Apr 09, 2010 PART B [id number] [phone] [id number] PAULA GONZALES PATIENT MEDICARE (WNR) MEDICARE (M) PART B Apr 09, 2010 PART B [id number] [phone] PAULA GONZALES PATIENT MEDICARE (WNR) MEDICARE (M) PART A Nov 09, 2009 PART A [id number] PAULA GONZALES PATIENT MEDICARE (WNR) MEDICARE (M) PART A Nov 09, 2009 PART A [id number] PAULA GONZALES PATIENT Selected Encounter This section includes the information on record at [place] for the Encounter. Date/Time Encounter Type Encounter Description Reason Provider Source Dec 08, 2023 09:00 AM TELEHEALTH FACILITY FEE SLEEP MEDICINE ICD-10-CM G47.33 Obstructive sleep apnea (adult) (pediatric) ANNIE CONRAD Mikhail Encounter Template Text not used by MD Assessments - Encounter Diagnoses This section includes the primary and secondary diagnoses documented for the Encounter. Date/Time Primary/Secondary Diagnosis Diagnosis Name Provider Source Dec 20, 2023 10:05 AM PRIMARY Obstructive sleep apnea (adult) (pediatric) [facility] [place] [facility] Dec 20, 2023 10:05 AM SECONDARY Central sleep apnea in conditions classified elsewhere [facility] [place] [facility] Plan of Treatment: Future Appointments (+ 6 [...] 15, 2023 09:00 AM AMBULATORY - NONE [place] CNTR [place] [facility] Dec 15, 2023 01:00 PM AMBULATORY - PSYCHIATRY [place] CNTR [place] [facility] Dec 29, 2023 04:00 PM AMBULATORY - PSYCHIATRY [place] CNTR [place] [facility] Jan 05, 2024 04:00 PM AMBULATORY - PSYCHIATRY MD CNTRL [place] [facility] Jan 26, 2024 04:00 PM AMBULATORY - PSYCHIATRY [place] [facility] [place] [facility] Feb 09, 2024 04:00 PM AMBULATORY - PSYCHIATRY MD CNTRL [place] [facility] Feb 16, 2024 09:00 AM AMBULATORY - MEDICINE MD C NTRL [place] [facility] Feb 19, 2024 01:00 PM AMBULATORY - PSYCHIATRY MD CNTRL [place] [facility] Feb 23, 2024 04:00 PM AMBULATORY - PSYCHIATRY MD CNTRL [place] [facility] Mar 01, 2024 04:00 PM AMBULATORY - PSYCHIATRY MD CNTRL [place] [facility] Mar 29, 2024 09:00 AM AMBULATORY - MEDICINE [facility] NTRL [facility] [place] [facility] Active, Pending, and Scheduled Orders This section [...] AM Consult Order COMMUNITY CARE-DENTAL GENERAL Cons Customer Service Supervisor's Choice [facility] [place] [facility] Jan 20, 2024 12:12 PM Consult Order COMMUNITY CARE-UROLOGY Cons Customer Service Supervisor's Choice [facility] Vital Signs: All taken on the encounter date This section contains inpatient and outpatient Vital Signs collected on the date of the Encounter. Date/Time Temperature Pulse Blood Pressure Respiratory Rate SP02 Pain Height Weight Body Mass Index Source Dec 08, 2023 08:52 AM 68 119/68 17 96 [facility] [place] [facility] Social History: Smoking Status (Most current) [...] 19, 2023 01:00 PM VA-TOBACCO NEVER USED MD CNTRL [place] [facility] Tobacco Use History This section includes a history of the smoking, or tobacco-related health factors, that were collected on or before the date of the Encounter. The data comes from the [place] facility where the Encounter took place. Date/Time Smoking Status/Tobacco Use Comment Gisele villalobos June 17, 2022 01:00 PM VA-TOBACCO NEVER USED MD CNTRL [place] [facility] Jul 16, 2021 01:00 PM VA-TOBACCO NEVER USED VA CNTRL [place] [facility] July 03, 2020 01:00 PM VA-TOBACCO NEVER USED VA CNTRL [place] [facility] Jul 11, 2019 02:57 PM VA-TOBACCO NEVER USED VA CNTRL [place] [facility] Jan 14, 2019 08:50 AM VA-TOBACCO NEVER USED MD CNTRL [place] [facility] Mar 04, 2018 01:20 PM VA-TOBACCO NEVER USED MD CNTRL [place] [facility] May 27, 2017 11:01 AM LIFETIME NON-TOBACCO USER MD CNTRL [place] [facility] May 20, 2016 10:51 AM LIFETIME NON-TOBACCO USER MD CNTRL [place] [facility] May 03, 2015 01:13 PM LIFETIME NON-TOBACCO USER MD CNTRL [place] [facility] Advance Directives: All historical and current Section [...] DIRECTIVE MIGDALIA MILES MD CNTRL [place] [facility] Apr 14, 2019 ADVANCE DIRECTIVE RAFAL BULLARD MD C NTRL [place] [facility] Encounter Notes: All associated encounter notes This section contains the clinical notes associated to the Encounter. Date/Time Encounter Note(s) Provider Source Dec 08, 2023 09:26 AM SLEEP MEDICINE NOT E: LOCAL TITLE: SLEEP DISORDER FOLLOW UP NOTE STANDARD TITLE: SLEEP MEDICINE NOTE DATE OF NOTE: DEC 08, 2023@09:26 ENTRY DATE: DEC 08, 2023@09:26:46 AUTHOR: ANNIE CONRAD COSIGNER: URGENCY: STATUS: COMPLETED [...] But his sleep Study from 07/01 in [place] showed moderate obstructive sleep apnea with significant [...] to be difficult to use. 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 Lacunar infarction on MRI, silent, has seen [facility] neuro- Dr. Kvng Camacho 3. Contact with and (Suspected) Exposure to Water Pollution [facility] 4. Exposure to potentially hazardous substance +AO, +[place] 5. COPD - Chronic Obstructive Pulmonary Disease ([facility] [id number]) asthma 6. Allergic Rhinitis ([facility] [id number]) 7. Peripheral vascular disease 8. Back pain 9. Bladder cancer 2017, high grade, Dr. Hester [facility] cystoscopies q3 mos 2018 Status post [...] STUDIES: Positive Airway Pressure Titration Polysomnography Report [facility] Patient: PRASANTH GONZALES : 1945 Gender: Male BMI: 33.3 Study Date: 01/24/2023 Referring physician: DR HUERTA Indications: Treatment of Sleep Apnea. Symptoms: Witnessed apneas [place] sleepiness scale: Co-morbidities: Bladder cancer, COPD, PTSD, [...] 17.0 0.0 0.0 0 0 90 92 GONZALES PRASANTH 11/07/2023 - 2023 : 1945 Age: 78 years [place] Compliance Report Compliance Payor [facility] Usage [...] 988 hours AirCurve 10 ASV Serial number [id number] Mode ASV EPAP 7 cmH2O Min PS 3 cmH2O Max PS 15 cmH2O Therapy Leaks - L/min Median: 38.9 95th percentile: 67.0 Maximum: 81.2 Events per hour AI: 0.2 HI: 4.7 AHI: 4.9 Impression: 78 year old with 1) Moderate mixed obstructive [...] /rosio/ ANNIE CONRAD MD ATTENDING Signed: 12/08/2023 09:27 ANNIE CONRAD CNTRL W[facility]N [facility]
--- OUTSIDE RECORDS SUMMARY | 2024-02-16 09:14 | XMS_ITS | Encounter Summary ---
Author Name [facility] [place] Address [address] [place] [address] Care Team Providers Care Regional Tanker Truck Driver Name Role Phone SUBHA VELAZQUEZ Primary Care [...] Relationship to Policy Bryson GREGORY PUGA-WN R [place] SPECIAL CLASS GREGORY DIOP Sep 15, 2011 GREGORY PUGA [id number] PAULA GONZALES PATIENT [facility] MEDICARE SUPPLEMEN [facility] [employer] [facility] Aug 09, 2017 [id number] [phone] JANETPAULA ANDREW PATIENT [facility] MEDICARE SUPPLEMEN [facility] Aug 09, 2017 [id number] PAULA GONZALES PATIENT MEDICARE (WNR) MEDICARE (M) PART A Nov 10, 2019 PART A [id number] PAULA GONZALES PATIENT MEDICARE (WNR) MEDICARE (M) PART B Apr 09, 2010 PART B [id number] PAULA GONZALES PATIENT MEDICARE (WNR) MEDICARE (M) PART B Apr 09, 2010 PART B [id number] PAULA GONZALES PATIENT MEDICARE (WNR) MEDICARE (M) PART B Apr 09, 2010 PART B [id number] [phone] PAULA GONZALES PATIENT MEDICARE (WNR) MEDICARE (M) PART A Nov 09, 2009 PART A [id number] PAULA GONZALES PATIENT MEDICARE (WNR) MEDICARE (M) PART A Nov 09, 2009 PART A [id number] [phone] PAULA GONZALES PATIENT Selected Encounter This section includes the information on record at [place] for the Encounter. Date/Time Encounter Type Encounter Description Reason Pro vider Source IHE Encounter Template Text not used by [place] Advance Directives: All historical and current Section Date Range: From patient's date of to the date document was created. This section includes ALL of a patient's completed or amended [place] Advance and Rescinded Directives. The entries below indicate that a directive exists for the patient, but an actual copy is not included with this document. The data comes from all [place] facilities. Date Advance Directives Provider Source Nov 08, 2019 ADVANCE DIRECTIVE MIGDALIA MILES [place] [facility] Apr 14, 2019 ADVANCE DIRECTIVE RAFAL BULLARD [place] [facility]
--- OUTSIDE RECORDS SUMMARY | 2024-02-16 09:14 | XMS_ITS ---
Author Name [facility] [place] Address [address] [place] [address] Care Team Providers Care Tape Sewing Machine Operator Name Role Phone SUBHA VELAZQUEZ [...] GREGORY DIOP Sep 15, 2011 GREGORY PUGA [id number] PAULA GONZALES PATIENT [facility] [place] MEDICARE SUPPLEMEN [facility] Aug 09, 2017 [id number] [phone] PAUAL GONZALES PATIENT [facility] [place] MEDICARE SUPPLEMEN [facility] SU[facility] PL Aug 09, 2017 [id number] PAULA GONZALES PATIENT MEDICARE (WNR) MEDICARE (M) PART A Nov 10, 2019 PART A [id number] PAULA GONZALES PATIENT MEDICARE (WNR) MEDICARE (M) PART B Apr 09, 2010 PART B [id number] PAULA GONZALES PATIENT MEDICARE (WNR) MEDICARE (M) PART B Apr 09, 2010 PART B [id number] PAULA GONZALES PATIENT MEDICARE (WNR) MEDICARE (M) PART B Apr 09, 2010 PART B [id number] PAULA GONZALES PATIENT MEDICARE (WNR) MEDICARE (M) PART A Nov 09, 2009 PART A [id number] PAULA GONZALES PATIENT MEDICARE (WNR) MEDICARE (M) PART A Nov 09, 2009 PART A [id number] [phone] PAULA GONZALES PATIENT Selected Encounter This section includes the information on record at [place] for the Encounter. Date/Time Encounter Type Encounter Description Reason Pro vider Source Oct 13, 2023 12:00 PM Outpatient Encounter COMMUNITY CARE CONSULT IHE Encounter Template Text not used by [place] Plan of Treatment: Future Appointments (+ 6 months) and Future Tests (+/- 45 days) The Plan of Treatment section includes future care activities for the patient [facility] [place] [facility] This section includes future appointments and [...] 14, 2023 08:00 AM AMBULATORY - MEDICINE [facility] [place] [facility] Oct 20, 2023 01:00 PM AMBULATORY - PSYCHIATRY [place] [facility] [place] [facility] Oct 27, 2023 01:00 PM AMBULATORY - PSYCHIATRY [place] [facility] [place] [facility] Nov 03, 2023 01:00 PM AMBULATORY - PSYCHIATRY [place] [facility] [place] [facility] Nov 05, 2023 09:00 AM AMBULATORY - REHAB MEDICIN E [place] [facility] [facility] Nov 05, 2023 12:00 PM AMBULATORY - MEDICINE [facility] [place] [facility] Nov 10, 2023 01:00 PM AMBULATORY - PSYCHIATRY [place] [facility] [facility] Nov 17, 2023 01:00 PM AMBULATORY - PSYCHIATRY [place] [facility] [facility] Dec 01, 2023 01:00 PM AMBULATORY - PSYCHIATRY [facility] [place] [facility] Dec 08, 2023 09:00 AM AMBULATORY - MEDICINE [facility] [place] [facility] Dec 08, 2023 09:01 AM AM[place]UL[place]ORY - [place]ICINE [place] [facility] Dec 08, 2023 01:00 PM AMBULATORY - PSYCHIATRY [facility] [place] [facility] Dec 15, 2023 09:00 AM AMBULATORY - NONE [place] [facility] [place] [facility] Dec 15, 2023 01:00 PM AMBULATORY - PSYCHIATRY [facility] [place] [facility] Dec 29, 2023 04:00 PM AMBULATORY - PSYCHIATRY [place] [facility] [place] [facility] Jan 05, 2024 04:00 PM AMBULATORY - PSYCHIATRY [place] [facility] [place] [facility] Jan 26, 2024 04:00 PM AMBULATORY - PSYCHIATRY [place] [facility] [place] [facility] Feb 09, 2024 04:00 PM AMBULATORY - PSYCHIATRY [place] [facility] [place] [facility] Feb 16, 2024 09:00 AM AMBULATORY - MEDICINE [place] [facility] [place] [place] [facility] Feb 19, 2024 01:00 PM AMBULATORY - PSYCHIATRY [place] [facility] [place] [facility] Lab Results: +/- 30 days of the encounter This section includes the Chemistry and Hematology Lab Results on record with [place] for the patient. Radiology Reports and Pathology Reports are provided separately, in subsequent sections. Lab Results This section contains the Chemistry/Hematology Results that were resulted 30 days before or 30 daysafter the date of the Encounter. Date/Time Source Result Type Result - Unit Interpretation Reference Range Comment Sep 17, 2023 07:56 AM [place] [facility] [facility] LIPID PANEL FASTING Specimen Type: SERUM No comment entered. Ordering Provider: SUBHA VELAZQUEZ Report Released Date/Time: May 21, 2023 03:02 PM Reporting Lab: [facility] [place] [facility] [address] [facility] [address] Performing Lab: [facility] WSN [address] [address] CHOLESTEROL 208 mg/dL H TRIGLYCERIDE 154 mg/dL H 0-150 LDL calculated 139 mg/dL H 0-129 CHOL/HDL 5.5 HDL CHOLESTEROL 38 mg/dL L 40-60 Sep 17, 2023 07:56 AM [place] [facility] [place] [facility] BASIC METABOLIC PANEL (non-fasting) Specimen Type: SERUM No comment entered. Ordering Provider: SUBHA VELAZQUEZ Report Released Date/Time: May 21, 2023 03:02 PM Reporting [facility] [address] [facility] [address] Performing Lab: [place] [facility] [address] [address] UREA NITROGEN 30 mg/dL H 7-25 GLUCOSE [...] and tobacco- related health factors from the [place] facility where the Encounter took place. Current Smoking Status This section includes the most current smoking, or tobacco-related health factor, from the [place] facility where the Encounter took place. Date/Time Current Smoking Status Comment Louisa koenig May 19, 2023 01:00 PM VA-TOBACCO NEVER USED [place] [facility] Tobacco Use History This section includes a history of the smoking, or tobacco-related health factors, that were collected on or before the date of the Encounter. The data comes from the [place] facility where the Encounter [...] 04, 2018 01:20 PM VA-TOBACCO NEVER USED [place] [facility] [facility] May 27, 2017 11:01 AM LIFETIME NON-TOBACCO USER [place] [facility] [place] [facility] May 20, 2016 10:51 AM LIFETIME NON-TOBACCO USER [place] [facility] May 03, 2015 01:13 PM LIFETIME NON-TOBACCO USER [facility] Advance Directives: All historical and current Section Date Range: From patient's date of to the date document was created. This section includes ALL of a patient's completed or amended [place] Advance and Rescinded Directives. The entries below indicate that a directive exists for the patient, but an actual copy is not included with this document. The data comes from all [place] facilities. Date Advance Directives Provider Source Nov 08, 2019 ADVANCE DIRECTIVE MIGDALIA MILES [place] [facility] Apr 14, 2019 ADVANCE DIRECTIVE RAFAL BULLARD [facility] NTRL WSN [facility] Encounter Notes: All associated encounter notes This section contains the clinical notes associated to the Encounter. Date/Time Encounter Note(s) Provider Source Oct 13, 2023 12:00 PM NONVA CONSULT: LOCAL TITLE: COMMUNITY CARE-CONSULT RESULT NOTE STANDARD TITLE: NONVA CONSULT DATE OF NOTE: OCT 13, 2023@12:00 ENTRY DATE: NOV 11, 2023@16:04:33 AUTHOR: JEFF GIBBS EXP COSIGNER: URGENCY: STATUS: COMPLETED VistA Imaging - Scanned Document SCANNED DOCUMENT SIGNATURE NOT REQUIRED Electronically Filed: 11/11/2023 by: JEFF RODRIGUEZ [facility]
--- OUTSIDE RECORDS SUMMARY | 2024-02-16 09:14 | XMS_ITS | Encounter Summary ---
Author Name [facility] [place] Organization [place] Address [address] [place] [address] Care Team Providers Care Resource Agent Name Role Phone SUBHA VELAZQUEZ Primary [...] GREGORY DIOP Sep 15, 2011 GREGORY PUGA [id number] [phone] PAULA GONZALES PATIENT [facility] [place] MEDICARE SUPPLEMEN [facility] [employer] [employer] [facility] Aug 09, 2017 [id number] PAULA GONZALES PATIENT [facility] [place] MED[facility] SUPPLEMEN [facility] SUPP PL Aug 09, 2017 [id number] [phone] PAULA GONZALES PATIENT MEDICARE (WNR) MEDICARE (M) PART A Nov 10, 2019 PART A [id number] PAULA GONZALES PATIENT MEDICARE (WNR) MEDICARE (M) PART B Apr 09, 2010 PART B [id number] PAULA GONZALES PATIENT MEDICARE (WNR) MEDICARE (M) PART B Apr 09, 2010 PART B [id number] PAULA GONZALES PATIENT MEDICARE (WNR) MEDICARE (M) PART B Apr 09, 2010 PART B [id number] PAULA GONZALES PATIENT MEDICARE (WNR) MEDICARE (M) PART A Nov 09, 2009 PART A [id number] PAULA GONZALES PATIENT MEDICARE (WNR) MEDICARE (M) PART A Nov 09, 2009 PART A [id number] [phone] PAULA GONZALES PATIENT Selected Encounter This section includes the information on record at [place] for the Encounter. Date/Time Encounter Type Encounter Description Reason Pro vider Source Nov 09, 2023 12:32 PM Outpatient Encounter TELEPHONE PRIMARY CARE IHE Encounter Template Text not used by [place] Plan of Treatment: Future Appointments (+ 6 months) and Future Tests (+/- 45 days) The Plan of Treatment section includes future care activities for the patient from all [place] [facility]. This section includes future appointments and [...] 10, 2023 01:00 PM AMBULATORY - PSYCHIATRY [place] [facility] [place] [facility] Nov 17, 2023 01:00 PM AMBULATORY - PSYCHIATRY [place] [facility] [place] [facility] Dec 01, 2023 01:00 PM AMBULATORY - PSYCHIATRY [place] [facility] [place] [facility] Dec 08, 2023 09:00 AM AMBULATORY - MEDICINE [place] [facility] [place] [facility] Dec 08, 2023 09:01 AM AMBULATORY - MEDICINE [facility] Dec 08, 2023 01:00 PM AMBULATORY - PSYCHIATRY [place] [facility] [place] [facility] Dec 15, 2023 09:00 AM AMBULATORY - NONE [place] [facility] [place] [facility] Dec 15, 2023 01:00 PM AMBULATORY - PSYCHIATRY [place] [facility] [place] [facility] Dec 29, 2023 04:00 PM AMBULATORY - PSYCHIATRY [place] [facility] [place] [facility] Jan 05, 2024 04:00 PM AMBULATORY - PSYCHIATRY [place] [facility] [place] [facility] Jan 26, 2024 04:00 PM AMBULATORY - PSYCHIATRY [place] [facility] [place] [facility] Feb 09, 2024 04:00 PM AMBULATORY - PSYCHIATRY [place] [facility] [place] [facility] Feb 16, 2024 09:00 AM AMBULATORY - MEDICINE [place] [facility] [facility] Feb 19, 2024 01:00 PM AMBULATORY - PSYCHIATRY [place] [facility] [place] [facility] Feb 23, 2024 04:00 PM AMBULATORY - PSYCHIATRY [place] [facility] [place] [facility] Mar 01, 2024 04:00 PM AMBULATORY - PSYCHIATRY [place] [facility] [place] [facility] Mar 29, 2024 09:00 AM AMBULATORY - MEDICINE [facility] Active, Pending, and Scheduled Orders This section includes a listing of several types of active, pending, and scheduled orders, including clinic medications orders, diagnostic test orders, procedure orders and consult orders; where the start date of the order is 45 days before the date of the Encounter or 45 days after the date of theEncounter. The data comes from all [place] treatment facilities. Test Date/Time Test Type Test Details Facility Name Dec 23, 2023 08:28 AM Consult Order COMMUNITY CARE-DENTAL GENERAL Cons Plan Manager's Choice [facility] Social History: Smoking Status (Most current) [...] 19, 2023 01:00 PM [facility] Tobacco Use History This section includes a [...] DIRECTIVE MIGDALIA MILES [place] [facility] [place] [facility] Apr 14, 2019 ADVANCE DIRECTIVE RAFAL BULLARD [place] [facility] [place] [facility] Encounter Notes: All associated encounter notes This section contains the clinical notes associated to the Encounter. Date/Time Encounter Note(s) Provider Source Nov 09, 2023 12:32 PM TELEPHONE ENCOUNTE R NOTE: LOCAL TITLE: TELEPHONE NOTE/SPECIALTY CLINIC STANDARD TITLE: TELEPHONE ENCOUNTER NOTE DATE OF NOTE: NOV 09, 2023@12:32 ENTRY DATE: NOV 09, 2023@12:33 AUTHOR: MELISSA DODGE COSIGNER: URGENCY: STATUS: COMPLETED [place] called stating that his cpap air flow is shutting down and he stated he is also having issues with the hose that connects to the pillows. He would like to know if he can get small pillows instead of the medium and also a new hose. Veterans phone number and address have been confirmed. /rosio/ MELISSA DODGE ALMOND PASTE MOLDER Signed: 11/09/2023 12:35 Receipt Acknowledged By: 11/10/2023 12:41 /rosio/ SHARRON BROTHERS,ENVIRONMENTAL TECH RESPIRATORY THERAPIST 11/10/2023 08:57 /es/ PATRICE SRIVASTAVA RESPIRATORY THERAPIST 11/09/2023 16:28 /rosio/ PHILLIP GILL, MASTER PLUMBER RESPIRATORY THERAPIST MELISSA DODGE [place] [facility]
--- OUTSIDE RECORDS SUMMARY | 2024-02-16 09:14 | XMS_ITS | Encounter Summary ---
Author Name [facility] [place] Organization [place] Address [address] [place] [address] Care Team Providers Care Rehab Nursing Tech Name Role Phone SUBHA VELAZQUEZ Primary Care [...] GREGORY DIOP Sep 15, 2011 GREGORY PUGA [id number] PAULA GONZALES PATIENT [facility] [place] MEDICARE SUPPLEMEN [facility] [employer] [facility] Aug 09, 2017 [id number] JANETPAULA ANDREW PATIENT [facility] MEDICARE SUPPLEMEN [facility] SUPP PL Aug 09, 2017 [id number] [phone] PAULA GONZALES PATIENT MEDICARE (WNR) MEDICARE (M) PART A Nov 10, 2019 PART A [id number] GR59 PAULA GONZALES PATIENT MEDICARE (WNR) MEDICARE (M) PART B Apr 09, 2010 PART B [id number] [phone] PAULA GONZALES PATIENT MEDICARE (WNR) MEDICARE (M) PART B Apr 09, 2010 PART B [id number] [id number] PAULA GONZALES PATIENT MEDICARE (WNR) MEDICARE (M) PART B Apr 09, 2010 PART B [id number] PAULA GONZALES PATIENT MEDICARE (WNR) MEDICARE (M) PART A Nov 09, 2009 PART A [id number] PAULA GONZALES PATIENT MEDICARE (WNR) MEDICARE (M) PART A Nov 09, 2009 PART A [id number] PAULA GONZALES PATIENT Selected Encounter This section includes the information on record at [place] for the Encounter. Date/Time Encounter Type Encounter Description Reason Pro vider Source IHE Encounter Template Text not used by [place] Advance Directives: All historical and current Section [...] 08, 2019 ADVANCE DIRECTIVE MIGDALIA MILES [place] [facility] Apr 14, 2019 ADVANCE DIRECTIVE RAFAL BULLARD [place] [facility]
--- OUTSIDE RECORDS SUMMARY | 2024-02-16 09:14 | XMS_ITS ---
Author Name [facility] [place] Organization [place] Address [address] [place] [address] Care Team Providers Care Grades 1 Thru 6 Home Teacher Name Role Phone SUBHA VELAZQUEZ Primary [...] GREGORY DIOP Sep 15, 2011 GREGORY PUGA [id number] PAULA GONZALES PATIENT [facility] [place] MEDICARE SUPPLEMEN [facility] [facility] Aug 09, 2017 [id number] PAULA GONZALES PATIENT [facility] [place] MEDICARE SUPPLEMEN [facility] SUPP PL Aug 09, 2017 [id number] PAULA GONZALES PATIENT MEDICARE (WNR) MEDICARE (M) PART A Nov 10, 2019 PART A [id number] PAULA GONZALES PATIENT MEDICARE (WNR) MEDICARE (M) PART B Apr 09, 2010 PART B [id number] [id number] PAULA GONZALES PATIENT MEDICARE (WNR) MEDICARE (M) PART B Apr 09, 2010 PART B [id number] [phone] [id number] PAULA GONZALES PATIENT MEDICARE (WNR) MEDICARE (M) PART B Apr 09, 2010 PART B [id number] PAULA GONZALES PATIENT MEDICARE (WNR) MEDICARE (M) PART A Nov 09, 2009 PART A [id number] PAULA GONZALES PATIENT MEDICARE (WNR) MEDICARE (M) PART A Nov 09, 2009 PART A [id number] PAULA GONZALES PATIENT Selected Encounter This section includes the information on record at [place] for the Encounter. Date/Time Encounter Type Encounter Description Reason Pro vider Source Nov 19, 2023 10:48 AM Outpatient Encounter TELEPHONE PRIMARY CARE IHE Encounter Template Text not used by [place] Plan of Treatment: Future Appointments (+ 6 months) and Future Tests (+/- 45 days) The Plan of Treatment section includes future care activities for the patient from all [place] [facility]. This section includes future appointments and future orders which are active, pending or scheduled. Future Appointments This section includes appointments that were scheduled to occur 6 months from the date of the Encounter, up to a maximum of 20 appointments. The data comes from all [place] treatment facilities. Appointment Date/Time Appointment Type Appointme nt Facility Name Dec 01, 2023 01:00 PM AMBULATORY - [place]ATRY [place] [facility] Dec 08, 2023 09:00 AM AMBULATORY - [place]ICINE [place] [facility] Dec 08, 2023 09:01 AM [facility]ORY - [facility] [place] [facility] Dec 08, 2023 01:00 PM AMBULATORY - PS[place]CHIATRY [place] [facility] Dec 15, 2023 09:00 AM AMBULATORY - NONE [place] [facility] Dec 15, 2023 01:00 PM AMBULATORY - [place]ATRY [place] [facility] Dec 29, 2023 04:00 PM AMBULATORY - [place]ATRY [place] [facility] Jan 05, 2024 04:00 PM AMBULATORY - [place]ATRY [place] [facility] Jan 26, 2024 04:00 PM AMBULATORY - PS[place]IATRY [place] [facility] Feb 09, 2024 04:00 PM AMBULATORY - PSYCHIATRY [place] [facility] [facility] Feb 16, 2024 09:00 AM AMBULATORY - [place]ICINE [place] [facility] Feb 19, 2024 01:00 PM AMBULATORY - PS[place]IATRY [place] [facility] Feb 23, 2024 04:00 PM AMBULATORY - [place]IATRY [place] [facility] Mar 01, 2024 04:00 PM AMBULATORY - [place]IATRY [place] [facility] Mar 29, 2024 09:00 AM AMBULATORY - [place]ICINE [place] [facility] Active, Pending, [...] AM Consult Order COMMUNITY CARE-DENTAL GENERAL Cons Energy [facility] Social History: Smoking Status (Most current) and Tobacco Use (All prior to encounter date) This section includes the most current, and the historical, smoking and tobacco- related health factors from the [place] facility where the Encounter took place. Current Smoking Status This section includes the most current smoking, or tobacco-related health factor, from the [place] facility where the Encounter took place. Date/Time Current Smoking Status Comment Louisa koenig May 19, 2023 01:00 PM VA-TOBACCO [facility] Tobacco Use History This section includes a history of the smoking, or tobacco-related health factors, that were collected on or before the date of the Encounter. The data comes from the [place] facility where the Encounter took place. Date/Time Smoking Status/Tobacco Use Comment F griselda June 17, 2022 01:00 PM VA-TOBACCO NEVER USED [place] [facility] Jul 16, 2021 01:00 PM [facility]AC[facility] [place] [facility] July 03, 2020 01:00 PM VA-TOBACCO NEVER USED [place] [facility] [place] [facility] Jul 11, 2019 02:57 PM VA-TOBACCO NEVER USED [place] [facility] [facility] Jan 14, 2019 08:50 AM VA-TOBACCO NEVER USED [place] [facility] [facility] Mar 04, 2018 01:20 PM VA-TOBACCO NEVER USED [place] [facility] [facility] May 27, 2017 11:01 AM LIFETIME NON-TOBACCO USER [place] [facility] [place] [facility] May 20, 2016 10:51 AM LIFETIME NON-TOBACCO USER [place] [facility] [facility] May 03, 2015 01:13 PM LIFETIME NON-TOBACCO USER [place] [facility] [...] DIRECTIVE MIGDALIA MILES [place] [facility] [facility] Apr 14, 2019 ADVANCE DIRECTIVE RAFAL BULLARD [place] C N[facility] Encounter Notes: All associated encounter notes This section contains the clinical notes associated to the Encounter. Date/Time Encounter Note(s) Provider Source Nov 19, 2023 10:48 AM TELEPHONE ENCOUNTE R NOTE: LOCAL TITLE: TELEPHONE NOTE/SPECIALTY CLINIC STANDARD TITLE: TELEPHONE ENCOUNTER NOTE DATE OF NOTE: NOV 19, 2023@10:48 ENTRY DATE: NOV 19, 2023@10:48:58 AUTHOR: MELISSA DODGE EXP COSIGNER: URGENCY: STATUS: COMPLETED called stating he needed some help with changing a setting on his machine now that he got the new order in. Veterans phone number on file has been confirmed. /rosio/ MELISSA DODGE READING ASSISTANT Signed: 11/19/2023 10:49 Receipt Acknowledged By: 11/24/2023 10:26 /es/ SHARRON BROTHERS,SALES CONTRACTS ANALYST RESPIRATORY THERAPIST 11/19/2023 14:19 /es/ PATRICE SRIVASTAVA RESPIRATORY THERAPIST 11/24/2023 09:11 /es/ PHILLIP GILL, RONEL RESPIRATORY THERAPIST MELISSA DODGE [facility]
--- OUTSIDE RECORDS SUMMARY | 2024-02-16 09:14 | XMS_ITS | Encounter Summary ---
Author Name [facility] [place] Address [address] [place] [address] Care Team Providers Care Scarf Gluer Name Role Phone SUBHA VELAZQUEZ Primary Care [...] Bryson's Name Patient's Relationship to Policy Bryson GREGROY PUGA-WN R [place] SPECIAL CLASS GREGORY DIOP Sep 15, 2011 GREGORY PUGA [id number] [phone] PAULA FENG PATIENT [facility] [place] MEDICARE SUPPLEMEN [facility] Aug 09, 2017 [id number] PAULA FENG PATIENT [facility] [place] MEDICARE SUPPLEMEN [facility] ELENA [facility] SUPP [facility] Aug 09, 2017 [id number] [phone] PAULA FENG PATIENT MEDICARE (WNR) MEDICARE (M) PART A Nov 10, 2019 PART A [id number] PAULA FENG PATIENT MEDICARE (WNR) MEDICARE (M) PART B Apr 09, 2010 PART B [id number] PAULA FENG PATIENT MEDICARE (WNR) MEDICARE (M) PART B Apr 09, 2010 PART B [id number] PAULA FENG PATIENT MEDICARE (WNR) MEDICARE (M) PART B Apr 09, 2010 PART B [id number] PAULA FENG PATIENT MEDICARE (WNR) MEDICARE (M) PART A Nov 09, 2009 PART A [id number] PAULA FENG PATIENT MEDICARE (WNR) MEDICARE (M) PART A Nov 09, 2009 PART A [id number] PAULA FENG PATIENT Selected Encounter This section includes the information on record at [place] for the Encounter. Date/Time Encounter Type Encounter Description Reason Provider Source Dec 08, 2023 01:00 PM PSYTX W PT 45 MINUTES [facility] - IND ICD-10-CM F43.10 Post-traumatic stress disorder, unspecified NATHAN KIRK Mikhail Encounter Template Text not used by [place] Assessments - Encounter Diagnoses This section includes the primary and secondary diagnoses documented for the Encounter. Date/Time Primary/Secondary Diagnosis Diagnosis Name Provider Source Dec 10, 2023 08:59 AM PRIMARY Post-traumatic stress disorder, unspecified [facility]ATHAN KIRK [facility] Plan of Treatment: Future Appointments [...] 15, 2023 09:00 AM AMBULATORY - NONE [place] [facility] [place] [facility] Dec 15, 2023 01:00 PM [facility] [place] [facility] Dec 29, 2023 04:00 PM [facility] [place] [facility] Jan 05, 2024 04:00 PM [facility] [place] [facility] Jan 26, 2024 04:00 PM AMBULATORY - PSYCHIATRY [place] [facility] [place] [facility] Feb 09, 2024 04:00 PM AMBULATORY - PSYCHIATRY [place] [facility] [place] [facility] Feb 16, 2024 09:00 AM AMBULATORY - MEDICINE [facility] [place] [facility] Feb 19, 2024 01:00 PM AMBULATORY - PSYCHIATRY [place] [facility] [place] [facility] Feb 23, 2024 04:00 PM AMBULATORY - PSYCHIATRY [place] [facility] [place] [facility] Mar 01, 2024 04:00 PM AMBULATORY - PSYCHIATRY [place] [facility] [place] [facility] Mar 29, 2024 09:00 AM [facility] Active, Pending, and Scheduled Orders [...] AM Consult Order COMMUNITY CARE-DENTAL GENERAL Cons Caustic Strength Inspector's Choice [facility] [place] [facility] Jan 20, 2024 12:12 PM Consult Order COMMUNITY CARE-UROLOGY Cons Caustic Strength Inspector's [facility] Vital Signs: All taken on the encounter date This section contains inpatient and outpatient Vital Signs collected on the date of the Encounter. Date/Time Temperature Pulse Blood Pressure Respiratory Rate SP02 Pain Height Weight Body Mass Index Source Dec 08, 2023 08:52 AM 68 119/68 17 96 [facility] Social History: Smoking Status (Most current) [...] 2023 01:00 PM VA-TOBACCO NEVER USED [facility] Tobacco Use History This section includes a history of the smoking, or tobacco-related health factors, that were collected on or before the date of the Encounter. The data comes from the [place] facility where the Encounter took place. Date/Time Smoking Status/Tobacco Use Comment F acility June 17, 2022 01:00 PM VA-TOBACCO NEVER USED [facility] [place] [facility] Jul 16, 2021 01:00 PM VA-TOBACCO NEVER USED [facility] [place] [facility] July 03, 2020 01:00 PM VA-TOBACCO NEVER USED [facility] [place] [facility] Jul 11, 2019 02:57 PM VA-TOBACCO NEVER USED [facility] [place] [facility] Jan 14, 2019 08:50 AM VA-TOBACCO NEVER USED [facility] [place] [facility] Mar 04, 2018 01:20 PM VA-TOBACCO NEVER USED [facility] [place] [facility] May 27, 2017 11:01 AM LIFETIME NON-TOBACCO USER [facility] [place] [facility] May 20, 2016 10:51 AM LIFETIME NON-TOBACCO USER [place] [facility] [place] [facility] May 03, 2015 01:13 PM LIFETIME NON-TOBACCO USER [place] [facility] [place] [facility] Advance Directives: All historical and [...] DIRECTIVE MIGDALIA MILES [place] [facility] [place] [facility] Apr 14, 2019 ADVANCE DIRECTIVE RAFAL BULLARD [place] C [facility] Encounter Notes: All associated encounter notes This section contains the clinical notes associated to the Encounter. Date/Time Encounter Note(s) Provider Source Dec 08, 2023 01:13 PM MENTAL HEALTH DIAG NOSTIC STUDY NOTE: LOCAL TITLE: MENTAL HEALTH DIAGNOSTIC STUDY STANDARD TITLE: MENTAL HEALTH DIAGNOSTIC STUDY NOTE DATE OF NOTE: DEC 08, 2023@13:13:29 ENTRY DATE: DEC 08, 2023@13:13:29 AUTHOR: NATHAN KIRK EXP COSIGNER: URGENCY: STATUS: COMPLETED These assessments were completed by PRASANTH FENG via provider direct entry on 12/08/2023 1:12:16 PM. PTSD CHECKLIST (PCL-5) - WEEKLY Patient [...] PCL-5 Weekly Total Score (past 180 days): 12/08/2023 9 11/17/2023 4 11/03/2023 10 10/27/2023 8 10/20/2023 9 09/29/2023 7 09/15/2023 4 09/01/2023 7 08/11/2023 9 06/30/2023 David /rosio/ NATHAN KIRK, Ph.D Clinical Psychologist Signed: 12/08/2023 21:40 NATHAN KIRK [place] [facility] [place] [facility] Dec 08, 2023 01:02 PM TELEHEALTH NOTE: LOCAL TITLE: [place] VIDEO CONNECT PSYCHOLOGY NOTE STANDARD TITLE: TELEHEALTH NOTE DATE OF NOTE: DEC 08, 2023@13:02 ENTRY DATE: DEC 08, 2023@13:02:48 AUTHOR: NATHAN KIRK EXP COSIGNER: URGENCY: STATUS: COMPLETED A Video Connect (VVC) Standard Documentation VVC Clinician Resources Only: E911 (Emergency Call Relay Center): [phone] [facility] Crisis Line - 988 then press #1. [facility] Suicide Coordinator [phone], Ext. [phone]; Back-up Ext. 1968 [place] Police, [place] JOSHUA [phone] Introduction: Visit is being conducted by [place] [employer]. [place] identified with 2 identifiers: [X] Full Name [ ] Date of [ ] [place] ID Card [X] Visual Recognition Emergency Plan: Delta confirmed and/or provided the following information in case of emergency or technology failure. PATIENT PHONE - PHONE NUMBER [CELLULAR] - Is patient phone number correct, if not, enter below: 's phone number: PRASANTH FENG [address], [place], [address] 's present location and address for appointment: [place] [address] Delta's emergency contact name and phone number: Layla Feng Delta reported that location is private and safe: Yes Informed Consent: Delta informed of the risks and benefits of Telehealth video care. Delta has the right to refuse video services. If refuses video visit, a [id number] visit will be scheduled. verbalized consent for this video visit: Yes Delta provided consent for any other persons present [...] court of law and presented to a four h agent), and DOD access for active-duty service members. Provided Suicide Prevention Hotline number, and other contact numbers as necessary. VISIT DURATION: 48 Minutes DIAGNOSIS: PTSD VETERANS STATEMENT OF GOALS/CONCERNS: Reduce irritability, avoidance, work on current challenges (including medical issues, particularly, cancer diagnosis), relationship issues, increase. meaningful activities and remain connected with people he is close to. SESSION FOCUS: Session began with completion and review of the PCL-5 (Score: 9). Session focused on 's marital challenges, thoughts and emotions around 's recent comments and behaviors that were reportedly hurtful to , disagreement regarding inequity about spending time with their children/grandchildren from previous marriages, and 's desire to spend time more time with his family, including, at least one of two of the upcoming holidays with his family. INTERVENTIONS: Reflective listening and support, effective communication skills, ways to connect, and revisited [...] PLAN FOR FOLLOW-UP: Next session planned for: 12/15/23 at 1:00pm /rosio/ NATHAN KIRK, Ph.D Clinical Psychologist Signed: 12/10/2023 08:59 NATHAN KIRK [place] [facility]
--- OUTSIDE RECORDS SUMMARY | 2024-02-16 09:14 | XMS_ITS | Encounter Summary ---
Author Name [facility] [place] Organization [place] Address [address] [place] [address] Care Team Providers Care Landfill Grader Name Role Phone SUBHA VELAZQUEZ Primary Care [...] Relationship to Policy Bryson GREGORY PUGA-WN R [place] SPECIAL [place] GREGORY DIOP Sep 15, 2011 GREGORY PUGA [id number] PAULA GONZALES PATIENT HEALTH [employer] MEDICARE SUPPLEMEN [employer] Aug 09, 2017 [id number] PAULA GONZALES PATIENT HEALTH PENDER MEDICARE SUPPLEMEN [place] [facility] Y SUPP PL Aug 09, 2017 [id number] [phone] PAULA GONZALES PATIENT MEDICARE (WNR) MEDICARE (M) PART A Nov 10, 2019 PART A [id number] PAULA GONZALES PATIENT MEDICARE (WNR) MEDICARE (M) PART B Apr 09, 2010 PART B [id number] GR59 PAULA GONZALES PATIENT MEDICARE (WNR) MEDICARE (M) PART B Apr 09, 2010 PART B [id number] PAULA GONZALES PATIENT MEDICARE (WNR) MEDICARE (M) PART B Apr 09, 2010 PART B [id number] PAULA GONZALES PATIENT MEDICARE (WNR) MEDICARE (M) PART A Nov 09, 2009 PART A [id number] PAULA GONZALES PATIENT MEDICARE (WNR) MEDICARE (M) PART A Nov 09, 2009 PART A [id number] PAULA GONZALES PATIENT Selected Encounter This section includes the information on record at [place] for the Encounter. Date/Time Encounter Type Encounter Description Reason Provider Source Nov 17, 2023 01:00 PM PSYTX W PT 45 MINUTES TELEPHONE MH ICD-10-CM F43.10 Post-traumatic stress disorder, unspecified NATHAN KIRK Mikhail Encounter Template Text not used by [place] Assessments - Encounter Diagnoses This section includes the primary and secondary diagnoses documented for the Encounter. Date/Time Primary/Secondary Diagnosis Diagnosis Name Provider Source Nov 17, 2023 01:00 PM PRIMARY Post-traumatic stress disorder, unspecified NATHAN KIRK [facility] Plan of Treatment: Future Appointments (+ 6 months) and Future Tests (+/- 45 days) The Plan of Treatment section includes future care activities for the patient from all [place] treatmentfacilities. This section includes future appointments and future orders which are active, pending or scheduled. Future Appointments This section includes appointments that were scheduled to occur 6 months from the date of the Encounter, up to a maximum of 20 appointments. The data comes from all [place] treatment facilities. Appointment Date/Time Appointment Type Appointme nt Facility Name Dec 01, 2023 01:00 PM AMBULATORY - [place]ATRY [place] [facility] [place] [facility] Dec 08, 2023 09:00 AM AMBULATORY - MEDICINE [place] [facility] [place] [facility] Dec 08, 2023 09:01 AM [facility]ULATORY [facility] Dec 08, 2023 01:00 PM AMBULATORY [facility] [place] [facility] Dec 15, 2023 09:00 AM AMBULATORY - NONE [place] [facility] [place] [facility] Dec 15, 2023 01:00 PM AMBULATORY - PSYCHIATRY [place] [facility] [facility] Dec 29, 2023 04:00 PM AMBULATORY - PSYCHIATRY [place] [facility] [place] [facility] Jan 05, 2024 04:00 PM AMBULATORY - PSYCHIATRY [facility] [place] [facility] Jan 26, 2024 04:00 PM AMBULATORY - PSYCHIATRY [place] [facility] [place] [facility] Feb 09, 2024 04:00 PM AMBULATORY - PSYCHIATRY [place] [facility] [facility] Feb 16, 2024 09:00 AM AMBULATORY - MEDICINE [place] [facility] [place] [facility] Feb 19, 2024 01:00 PM AMBULATORY - PSYCHIATRY [place] [facility] [facility] Feb 23, 2024 04:00 PM AMBULATORY - PSYCHIATRY [place] [facility] [facility] Mar 01, 2024 04:00 PM AMBULATORY - PSYCHIATRY [place] [facility] [facility] Mar 29, 2024 09:00 AM AMBULATORY - MEDICINE [facility] Active, Pending, and Scheduled Orders This section includes a listing of several types of active, pending, and scheduled orders, including clinic medications orders, diagnostic test orders, procedure orders and consult orders; where the start date of the order is 45 days before the date of the Encounter or 45 days after the date of theEncounter. The data comes from all [place] treatment facilities. Test Date/Time Test Type Test Details Facility Name Dec 23, 2023 08:28 AM Consult Order COMMUNITY CARE-DENTAL GENERAL Cons Hat Lining Paster's Choice [facility] Social History: Smoking Status (Most current) and Tobacco Use (All prior to encounter date) This section includes the most current, and the historical, smoking and tobacco- related health factors from the [place] facility where the Encounter took place. Current Smoking Status This section includes the most current smoking, or tobacco-related health factor, from the [place] facility where the Encounter took place. Date/Time Current Smoking Status Comment Louisa koenig May 19, 2023 01:00 PM VA-TOBACCO [facility] USED [facility] Tobacco Use History This section includes a history of the smoking, or tobacco-related health factors, that were collected on or before the date of the Encounter. The data comes from the [place] facility where the Encounter took place. Date/Time Smoking Status/Tobacco Use Comment F accynthia June 17, 2022 01:00 PM VA-TOBACCO NEVER USED [place] [facility] [place] [facility] Jul 16, 2021 01:00 PM VA-TOBACCO NEVER USED [place] [facility] [place] [facility] July 03, 2020 01:00 PM VA-TOBACCO NEVER USED [facility] [place] [facility] Jul 11, 2019 02:57 PM VA-TOBACCO NEVER USED [facility] [place] [facility] Jan 14, 2019 08:50 AM VA-TOBACCO NEVER USED [facility] [place] [facility] Mar 04, 2018 01:20 PM VA-TOBACCO NEVER USED [facility] [place] [facility] May 27, 2017 11:01 AM LIFETIME NON-TOBACCO USER [facility] [place] [facility] May 20, 2016 10:51 AM LIFETIME NON-TOBACCO USER [place] [facility] [place] [facility] May 03, 2015 01:13 PM LIFETIME NON-TOBACCO USER [place] [facility] [place] [facility] Advance Directives: All historical and current Section Date Range: From patient's date of to the date document was created. This section includes ALL of a patient's completed or amended [place] Advance and Rescinded Directives. The entries below indicate that a directive exists for the patient, but an actual copy is not included with this document. The data comes from all [place] facilities. Date Advance Directives Provider Source Nov 08, 2019 ADVANCE DIRECTIVE MIGDALIA MILES [place] [facility] [place] [facility] Apr 14, 2019 ADVANCE DIRECTIVE RAFAL BULLARD [place] [facility] [place] [facility] Encounter Notes: All associated encounter notes This section contains the clinical notes associated to the Encounter. Date/Time Encounter Note(s) Provider Source Nov 17, 2023 02:03 PM MENTAL HEALTH DIAG NOSTIC STUDY NOTE: LOCAL TITLE: MENTAL HEALTH DIAGNOSTIC STUDY STANDARD TITLE: MENTAL HEALTH DIAGNOSTIC STUDY NOTE DATE OF NOTE: NOV 17, 2023@14:03:01 ENTRY DATE: NOV 17, 2023@14:03:01 AUTHOR: TORMEY,NATHAN EXP COSIGNER: URGENCY: STATUS: COMPLETED These assessments were completed by PRASANTH GONZALES via provider direct entry on 11/17/2023 2:01:44 PM. PTSD CHECKLIST (PCL-5) - WEEKLY Patient [...] A little bit 18. Feeling easily startled: Not at all 19. Difficulty concentrating: Not at all 20. Trouble sleeping: A little bit PCL-5 [...] PCL-5 Weekly Total Score (past 180 days): 11/17/2023 4 11/03/2023 10 10/27/2023 8 10/20/2023 9 09/29/2023 7 09/15/2023 4 09/01/2023 7 08/11/2023 9 06/30/2023 10 05/19/2023 9 04/07/2023 3 /rosio/ NATHAN KIRK, Ph.D Clinical Psychologist Signed: 11/17/2023 15:14 NATHAN KIRK [place] [facility] [place] [facility] Nov 17, 2023 01:32 PM MENTAL HEALTH TELE PHONE ENCOUNTER NOTE: LOCAL TITLE: TELEPHONE NOTE/MENTAL HEALTH STANDARD TITLE: MENTAL HEALTH TELEPHONE ENCOUNTER NOTE DATE OF NOTE: NOV 17, 2023@13:32 ENTRY DATE: NOV 17, 2023@13:33:16 AUTHOR: NATHAN KIRK EXP COSIGNER: URGENCY: STATUS: COMPLETED VISIT DURATION: 40 Minutes Session was originally scheduled for a [facility] appointment, however, when joined the session, his audio and video was not working. Therefore, session was completed via telephone. DIAGNOSIS: PTSD VETERANS STATEMENT OF GOALS/CONCERNS: Reduce irritability, avoidance, work on current challenges (including medical issues, particularly, cancer diagnosis), relationship issues, increase. meaningful activities and remain connected with people he is close to. SESSION FOCUS: Session began with completion and review of the PCL-5 (Score: 4). The remainder of the session focused on updates and challenges regarding current medial issues and marital issues. expressed having continued struggles in his relationship with his . He shared examples of communication issues and how he feels shut down when trying to resolve an issue with his . He also shared that family holidays and celebrations are difficult for him because his won't agree to spend any time with his children and grandchildren and he doesn't want to say no to his children when they ask him to spend time with them, on holidays and other times. He stated that his expects him to come with her (out of state) when she visits her children, however, stated he no longer wants to do that. He stated that he gets along well with her children, however, doesn't want to be away from his own children every holiday or special event. He stated that he wished they could just take turns spending time with each other's family, however, that is not how it is. [place] stated that his daughter asked him to spend Thanksgiving with her and her family and that is what he will probably do. Revisited the idea of couple's therapy and [place] stated he would speak with his about it. He stated if she would agree to spend time with his children and have an open mind, he knows that they would try too. Will revisit next session. INTERVENTIONS: Processed thoughts and emotions regarding marital stressors and challenges, increase meaningful activities, focus on the things [...] PLAN FOR FOLLOW-UP: Next session planned for: 11/30/23 at 1:00pm /rosio/ NATHAN KIRK, Ph.D Clinical Psychologist Signed: 11/17/2023 21:40 NATHAN KIRK [place] [facility]
--- OUTSIDE RECORDS SUMMARY | 2024-02-16 09:14 | XMS_ITS | Encounter Summary ---
Author Name [facility] [place] [facility] [place] Address [address] [place] [address] Care Team Providers Care Aerial Erector Name Role Phone SUBHA VELAZQUEZ Primary Care [...] Relationship to Policy Bryson GREGORY PUGA-WN R [place] SPECIAL CLASS GREGORY DIOP Sep 15, 2011 GREGORY PUGA [id number] [phone] PAULA GONZALES PATIENT [facility] [place] MEDICARE SU[employer]MEN [facility] [employer] Aug 09, 2017 [id number] PAULA GONZALES PATIENT [facility] [place] MEDICARE SU[employer]LEMEN [employer] SUPP PL Aug 09, 2017 [id number] [phone] PAULA GONZALES PATIENT MEDICARE (WNR) MEDICARE (M) PART A Nov 10, 2019 PART A [id number] PAULA GONZALES PATIENT MEDICARE (WNR) MEDICARE (M) PART B Apr 09, 2010 PART B [id number] PAULA GONZALES PATIENT MEDICARE (WNR) MEDICARE (M) PART B Apr 09, 2010 PART B [id number] PAULA GONZALES PATIENT MEDICARE (WNR) MEDICARE (M) PART B Apr 09, 2010 PART B [id number] [phone] PAULA GONZALES PATIENT MEDICARE (WNR) MEDICARE (M) PART A Nov 09, 2009 PART A [id number] PAULA GONZALES PATIENT MEDICARE (WNR) MEDICARE (M) PART A Nov 09, 2009 PART A [id number] [phone] PAULA GONZALES PATIENT Selected Encounter This section includes the information on record at [place] for the Encounter. Date/Time Encounter Type Encounter Description Reason Provider Source Nov 19, 2023 02:19 PM POS AIRWAY PRESSURE CPAP TELEPHONE/MEDICINE ICD-10-CM G47.39 Other sleep apnea PATRICE SRIVASTAVA Mikhail Encounter Template Text not used by [place] Assessments - Encounter Diagnoses This section includes the primary and secondary diagnoses documented for the Encounter. Date/Time Primary/Secondary Diagnosis Diagnosis Name Provider Source Nov 19, 2023 02:19 PM PRIMARY Other sleep apnea PATRICE SRIVASTAVA [place] [facility] [place] [facility] Plan of Treatment: Future Appointments (+ 6 months) and Future Tests (+/- 45 days) The Plan of Treatment section includes future care activities for the patient from all [place] treatmentfacilities. This section includes future appointments and future orders which are active, pending or scheduled. Future Appointments This section includes appointments that were scheduled to occur 6 months from the date of the Encounter, up to a maximum of 20 appointments. The data comes from all [place] treatment facilities. Appointment Date/Time Appointment Type Appointme nt Facility Name Dec 01, 2023 01:00 PM AMBULATORY - PSYCHIATRY [place] [facility] [place] [facility] Dec 08, 2023 09:00 AM AMBULATORY - MEDICINE [place] [facility] [place] [facility] Dec 08, 2023 09:01 AM AMBULATORY - MEDICINE [facility] Dec 08, 2023 01:00 PM AMBULATORY - PSYCHIATRY [place] [facility] [place] [facility] Dec 15, 2023 09:00 AM AMBULATORY - NONE [place] [facility] [place] [facility] Dec 15, 2023 01:00 PM AMBULATORY - PSYCHIATRY [place] [facility] [place] [facility] Dec 29, 2023 04:00 PM AMBULATORY - PSYCHIATRY [place] [facility] [place] [facility] Jan 05, 2024 04:00 PM AMBULATORY - PSYCHIATRY [place] [facility] [place] [facility] Jan 26, 2024 04:00 PM AMBULATORY - PSYCHIATRY [place] [facility] [place] [facility] Feb 09, 2024 04:00 PM AMBULATORY - PSYCHIATRY [place] [facility] [place] [facility] Feb 16, 2024 09:00 AM AMBULATORY - MEDICINE [place] [facility] [place] [facility] Feb 19, 2024 01:00 PM AMBULATORY - PSYCHIATRY [place] [facility] [place] [facility] Feb 23, 2024 04:00 PM AMBULATORY - PSYCHIATRY [place] [facility] [place] [facility] Mar 01, 2024 04:00 PM AMBULATORY - PSYCHIATRY [place] [facility] [place] [facility] Mar 29, 2024 09:00 AM [facility]UL[facility] Active, Pending, and Scheduled Orders This section includes a listing of several types of active, pending, and scheduled orders, including clinic medications orders, diagnostic test orders, procedure orders and consult orders; where the start date of the order is 45 days before the date of the Encounter or 45 days after the date of theEncounter. The data comes from all [place] treatment facilities. Test Date/Time Test Type Test Details Facility Name Dec 23, 2023 08:28 AM Consult Order COMMUNITY CARE-DENTAL GENERAL Cons Electric Operator's Choice [facility] Social History: Smoking Status (Most current) and Tobacco Use (All prior to encounter date) This section includes the most current, and the historical, smoking and tobacco- related health factors from the [place] facility where the Encounter took place. Current Smoking Status This section includes the most current smoking, or tobacco-related health factor, from the [place] facility where the Encounter took place. Date/Time Current Smoking Status Comment Louisa koenig May 19, 2023 01:00 PM SD-TOBACCO NEVER USED [facility] Tobacco Use History This section includes a history of the smoking, or tobacco-related health factors, that were collected on or before the date of the Encounter. The data comes from the [place] facility where the Encounter took place. Date/Time Smoking Status/Tobacco Use Comment F accynthia June 17, 2022 01:00 PM VA-TOBACCO NEVER USED [place] [facility] [place] [facility] Jul 16, 2021 01:00 PM VA-TOBACCO NEVER USED [place] [facility] [place] [facility] July 03, 2020 01:00 PM VA-TOBACCO NEVER USED [place] [facility] [place] [facility] Jul 11, 2019 02:57 PM VA-TOBACCO NEVER USED [place] [facility] [place] [facility] Jan 14, 2019 08:50 AM VA-TOBACCO NEVER USED [place] [facility] [place] [facility] Mar 04, 2018 01:20 PM VA-TOBACCO NEVER USED [place] [facility] [place] [facility] May 27, 2017 11:01 AM LIFETIME NON-TOBACCO USER [place] [facility] [place] [facility] May 20, 2016 10:51 AM LIFETIME NON-TOBACCO USER [place] [facility] [place] [facility] May 03, 2015 01:13 PM LIFETIME NON-TOBACCO USER [place] [facility] [place] [facility] Advance Directives: All historical and current Section Date Range: From patient's date of to the date document was created. This section includes ALL of a patient's completed or amended [place] Advance and Rescinded Directives. The entries below indicate that a directive exists for the patient, but an actual copy is not included with this document. The data comes from all [place] facilities. Date Advance Directives Provider Source Nov 08, 2019 ADVANCE DIRECTIVE MIGDALIA MILES [place] [facility] [place] [facility] Apr 14, 2019 ADVANCE DIRECTIVE RAFAL BULLARD [place] C [facility] [place] [facility] Encounter Notes: All associated encounter notes This section contains the clinical notes associated to the Encounter. Date/Time Encounter Note(s) Provider Source Nov 19, 2023 02:23 PM SLEEP MEDICINE NOT E: LOCAL TITLE: CPAP CLINIC NOTE STANDARD TITLE: SLEEP MEDICINE NOTE DATE OF NOTE: NOV 19, 2023@14:23 ENTRY DATE: NOV 19, 2023@14:23:49 AUTHOR: PATRICE SRIVASTAVA COSIGNER: URGENCY: STATUS: COMPLETED Telephone Coding and Documentation: Diagnosis: Sleep Apnea Actual time spent with Patient via telephone: 15 minutes. diagnosed with sleep apnea called to discuss new mask. I talked through how to change mask style in his settings. Also requested he use his chinstrap as he continues to have a large leak. [employer] Compliance Report Usage 10/21/2023 - 11/19/2023 Usage days 28/30 days (93%) >= 4 hours 25 days (83%) < 4 hours 3 days (10%) Usage hours 171 hours 12 minutes Average usage (total days) 5 hours 42 minutes Average usage (days used) 6 hours 7 minutes Median usage (days used) 6 hours 14 minutes Total used hours (value since last reset - 11/19/2023) 881 hours [employer] 10 ASV Serial number [id number] Mode ASV EPAP 7 cmH2O Min PS 3 cmH2O Max PS 15 cmH2O Therapy Leaks - L/min Median: 36.1 95th percentile: 62.3 Maximum: 74.2 Events per hour AI: 0.5 HI: 6.8 AHI: 7.3 /rosio/ PATRICE SRIVASTAVA RESPIRATORY THERAPIST Signed: 11/19/2023 14:24 [facility]ICE [facility]ASTAVA [facility]
--- OUTSIDE RECORDS SUMMARY | 2024-02-16 09:14 | XMS_ITS ---
Author Name [facility] [place] [facility] [place] Address [address] [place] [address] Care Team Providers Care Package Line Operator Name Role Phone SUBHA REY Primary Care [...] Relationship to Policy Bryson GREGORY PUGA-WN R [place] SPECIAL CLASS GREGORY DIOP Sep 15, 2011 GREGORY PUGA [id number] [phone] PAULA FENG PATIENT [facility] [place] MEDICARE SU[employer]MEN [employer] Aug 09, 2017 [id number] PAULA FENG PATIENT [facility] [place] MEDICARE [employer]MEN [employer] SUPP PL Aug 09, 2017 [id number] PAULA FENG PATIENT MEDICARE (WNR) MEDICARE (M) PART A Nov 10, 2019 PART A [id number] PAULA FENG PATIENT MEDICARE (WNR) MEDICARE (M) PART B Apr 09, 2010 PART B [id number] PAULA FENG PATIENT MEDICARE (WNR) MEDICARE (M) PART B Apr 09, 2010 PART B [id number] PAULA FENG PATIENT MEDICARE (WNR) MEDICARE (M) PART B Apr 09, 2010 PART B [id number] [phone] PAULA FENG PATIENT MEDICARE (WNR) MEDICARE (M) PART A Nov 09, 2009 PART A [id number] PUALA FENG PATIENT MEDICARE (WNR) MEDICARE (M) PART A Nov 09, 2009 PART A [id number] PAULA FENG PATIENT Selected Encounter This section includes the information on record at [place] for the Encounter. Date/Time Encounter Type Encounter Description Reason Provider Source Nov 09, 2023 08:24 AM Outpatient Encounter PRIMARY CARE/MEDICINE MORGAN SAMUEL Encounter Template Text not used by [place] Plan of Treatment: Future Appointments (+ 6 months) and Future Tests (+/- 45 days) The Plan of Treatment section includes future care activities for the patient [facility] [place] [facility] This section includes future appointments and future orders which are active, pending or scheduled. Future Appointments This section includes appointments that were scheduled to occur 6 months from the date of the Encounter, up to a maximum of 20 appointments. The data comes from all [place] treatment facilities. Appointment Date/Time Appointment Type Appointme nt Facility Name Nov 10, 2023 01:00 PM AMBULATORY - PS[place]IATRY [place] [facility] [place] [facility] Nov 17, 2023 01:00 PM AMBULATORY - PSYCHIATRY [place] [facility] [place] [facility] Dec 01, 2023 01:00 PM AMBULATORY - PSYCHIATRY [place] [facility] [place] [facility] Dec 08, 2023 09:00 AM AMBULATORY - MEDICINE [place] [facility] [place] [facility] Dec 08, 2023 09:01 AM AMBULATORY - MEDICINE [facility] Dec 08, 2023 01:00 PM AMBULATORY - PSYCHIATRY [place] [facility] [place] [facility] Dec 15, 2023 09:00 AM AMBULATORY - NONE [place] [facility] [place] [facility] Dec 15, 2023 01:00 PM AMBULATORY - PSYCHIATRY [place] [facility] [place] [facility] Dec 29, 2023 04:00 PM AMBULATORY - PSYCHIATRY [place] [facility] [place] [facility] Jan 05, 2024 04:00 PM AMBULATORY - PSYCHIATRY [place] [facility] [place] [facility] Jan 26, 2024 04:00 PM AMBULATORY - PSYCHIATRY [place] [facility] [place] [facility] Feb 09, 2024 04:00 PM AMBULATORY - PSYCHIATRY [place] [facility] [place] [facility] Feb 16, 2024 09:00 AM AMBULATORY - MEDICINE [place] [facility] [place] [place] [facility] Feb 19, 2024 01:00 PM AMBULATORY - PSYCHIATRY [place] [facility] [place] [facility] Feb 23, 2024 04:00 PM AMBULATORY - PSYCHIATRY [place] [facility] [place] [facility] Mar 01, 2024 04:00 PM AMBULATORY - PSYCHIATRY [place] [facility] [place] [place] [facility] Mar 29, 2024 09:00 AM AMBULATORY - MEDICINE [facility] Active, Pending, and Scheduled Orders This section includes a listing of several types of active, pending, and scheduled orders, including clinic medications orders, diagnostic test orders, procedure orders and consult orders; where the start date of the order is 45 days before the date of the Encounter or 45 days after the date of theEncounter. The data comes from all [place] treatment facilities. Test Date/Time Test Type Test Details Facility Name Dec 23, 2023 08:28 AM Consult Order COMMUNITY CARE-DENTAL GENERAL Cons Mortgage Loan Officer's Choice [facility] Social History: Smoking Status (Most current) and Tobacco Use (All prior to encounter date) This section includes the most current, and the historical, smoking and tobacco- related health factors from the [place] facility where the Encounter took place. Current Smoking Status This section includes the most current smoking, or tobacco-related health factor, from the [place] facility where the Encounter took place. Date/Time Current Smoking Status Comment Facil ity May 19, 2023 01:00 PM VA-TOBACCO NEVER USED [facility] Tobacco Use History This section includes a history of the smoking, or tobacco-related health factors, that were collected on or before the date of the Encounter. The data comes from the [place] facility where the Encounter took place. Date/Time Smoking Status/Tobacco Use Comment F acility June 17, 2022 01:00 PM VA-TOBACCO NEVER USED [place] [facility] [place] [facility] Jul 16, 2021 01:00 PM VA-TOBACCO NEVER USED [place] [facility] [place] [facility] July 03, 2020 01:00 PM VA-TOBACCO NEVER USED [place] [facility] [place] [facility] Jul 11, 2019 02:57 PM VA-TOBACCO NEVER USED [place] [facility] [place] [facility] Jan 14, 2019 08:50 AM VA-TOBACCO NEVER USED [place] [facility] [place] [facility] Mar 04, 2018 01:20 PM VA-TOBACCO NEVER USED [place] [facility] [place] [facility] May 27, 2017 11:01 AM LIFETIME NON-TOBACCO USER [place] [facility] [place] [facility] May 20, 2016 10:51 AM LIFETIME NON-TOBACCO USER [place] [facility] [place] [facility] May 03, 2015 01:13 PM LIFETIME NON-TOBACCO USER [place] [facility] [place] [facility] Advance Directives: All historical and current Section Date Range: From patient's date of to the date document was created. This section includes ALL of a patient's completed or amended [place] Advance and Rescinded Directives. The entries below indicate that a directive exists for the patient, but an actual copy is not included with this document. The data comes from all [place] facilities. Date Advance Directives Provider Source Nov 08, 2019 ADVANCE DIRECTIVE MIGDALIA MILES [place] [facility] [place] [facility] Apr 14, 2019 ADVANCE DIRECTIVE RAFAL BULLARD [place] C [facility] [place] [facility] Encounter Notes: All associated encounter notes This section contains the clinical notes associated to the Encounter. Date/Time Encounter Note(s) Provider Source Nov 09, 2023 08:24 AM PRIMARY CARE SECUR E MESSAGING: LOCAL TITLE: PRIMARY CARE SECURE MESSAGING STANDARD TITLE: PRIMARY CARE SECURE MESSAGING DATE OF NOTE: NOV 09, 2023@08:24 ENTRY DATE: NOV 09, 2023@08:24:54 AUTHOR: MORGAN SAMUEL COSIGNER: URGENCY: STATUS: COMPLETED PRIMARY CARE SECURE MESSAGING Has ADDENDA ------Original Message -------- Sent: 11/06/2023 10:08 AM ET From: PRASANTH FENG To: Stephanie REY _ PRIMARY CARE_[facility] Subject: General:Holter Monitor Test Good morning Dr. Rey, I've received a copy on the Holter monitor report and although I've have reviewed it, I still have questions. At your convenience could you please schedule short appointment review of that report. Secondly, I am no longer with Dr. Jones for my Cardiology needs, and have replaced him with Dr. Kvng Camacho, @ [facility], phone number [phone]. Thank you for your time, Prasanth Feng [facility] ------Original Message -------- Sent: 11/09/2023 08:24 AM ET From: MORGAN SAMUEL To: PRASANTH FENG Subject: General:Holter Monitor Test Good morning, I will forward your request to your primary care provider. Respectfully, Morgan Samuel RN /rosio/ MORGAN SAMUEL REGISTERED NURSE Signed: 11/09/2023 08:24 Receipt Acknowledged By: 11/09/2023 08:30 /rosio/ SUBHA REY D.O. PHYSICIAN 11/09/2023 09:13 /rosio/ RICA ROTHMAN 11/09/2023 ADDENDUM STATUS: COMPLETED Adding PCP for direction-AMSA to schedule /rosio/ MORGAN SAMUEL REGISTERED NURSE Signed: 11/09/2023 08:27 11/09/2023 ADDENDUM STATUS: COMPLETED [facility] CALLED ON THE TELEPHONE FOR SCHEDULING BUT THE CALL WAS NOT ANSWERED,A MESSAGE WAS LEFT FOR CALLBACK. /fay ROTHMAN Signed: 11/09/2023 09:13 MORGAN SAMUEL [facility]
--- OUTSIDE RECORDS SUMMARY | 2024-02-16 09:14 | XMS_ITS | Encounter Summary ---
Author Name [facility] [place] Organization [place] Address [address] [place] [address] Care Team Providers Care Utility Aircrewman Name Role Phone SUBHA VELAZQUEZ Primary Care [...] GREGORY DIOP Sep 15, 2011 GREGORY PUGA [id number] [phone] PAULA GONZALES PATIENT [facility] [place]IC[facility] [employer] [facility] Aug 09, 2017 [id number] PAULA GONZALES PATIENT [facility] [place] MEDICARE SUPPLEMEN [facility] SUPP [address] Aug 09, 2017 [id number] [phone] PAULA GONZALES PATIENT MEDICARE (WNR) MEDICARE (M) PART A Nov 10, 2019 PART A [id number] PAULA GONZALES PATIENT MEDICARE (WNR) MEDICARE (M) PART B Apr 09, 2010 PART B [id number] PAULA GONZALES PATIENT MEDICARE (WNR) MEDICARE (M) PART B Apr 09, 2010 PART B [id number] PAULA GONZALES PATIENT MEDICARE (WNR) MEDICARE (M) PART B Apr 09, 2010 PART B [id number] PAULA GONZALES PATIENT MEDICARE (WNR) MEDICARE (M) PART A Nov 09, 2009 PART A [id number] PAULA GONZALES PATIENT MEDICARE (WNR) MEDICARE (M) PART A Nov 09, 2009 PART A [id number] PAULA GONZALES PATIENT Selected Encounter This section includes the information on record at [place] for the Encounter. Date/Time Encounter Type Encounter Description Reason Provider Source Nov 10, 2023 01:00 PM PSYTX W PT 45 MINUTES TELEPHONE MH ICD-10-CM F43.10 Post-traumatic stress disorder, unspecified NATHAN KIRK Mikhail Encounter Template Text not used by [place] Assessments - Encounter Diagnoses This section includes the primary and secondary diagnoses documented for the Encounter. Date/Time Primary/Secondary Diagnosis Diagnosis Name Provider Source Nov 10, 2023 01:00 PM PRIMARY Post-traumatic stress disorder, unspecified NATHAN KIRK [facility] Plan of Treatment: Future [...] Appointment Type Appointme nt Facility Name Nov 17, 2023 01:00 PM AMBULAT[facility] [place] [facility] [place] [facility] Dec 01, 2023 01:00 PM AMBULAT[facility] - [facility]IAT[facility] [place] [place] [facility] Dec 08, 2023 09:00 AM AMBULATORY - MEDICINE [facility] [place] [facility] Dec 08, 2023 09:01 AM AMBULATORY - MEDICINE [facility] Dec 08, 2023 01:00 PM AMBULATORY - [place]CHIATRY [place] [facility] [place] [place] [facility] Dec 15, 2023 09:00 AM AMBULATORY - NONE [place] [facility] [place] [facility] Dec 15, 2023 01:00 PM AMBULATORY - PS[place]CHIATRY [place] [facility] [place] [facility] Dec 29, 2023 04:00 PM AMBULATORY - PSYCHIATRY [place] [facility] [place] [facility] Jan 05, 2024 04:00 PM AMBULATORY - PSYCHIATRY [place] [facility] [place] [facility] Jan 26, 2024 04:00 PM AMBULATORY - PS[place]CHIATRY [place] [facility] [place] [facility] Feb 09, 2024 04:00 PM AMBULATORY - PSYCHIATRY [place] [facility] [place] [facility] Feb 16, 2024 09:00 AM AMBULATORY - MEDICINE [place] [facility] [place] [facility] Feb 19, 2024 01:00 PM AMBULATORY - PSYCHIATRY [place] [facility] [place] [facility] Feb 23, 2024 04:00 PM AMBULATORY - PSYCHIATRY [place] [facility] [place] [facility] Mar 01, 2024 04:00 PM AMBULATORY - PSYCHIATRY [place] [facility] [place] [facility] Mar 29, 2024 09:00 AM AMBULATORY - MEDICINE [place] [facility] [place] [facility] Active, Pending, and Scheduled Orders [...] AM Consult Order COMMUNITY CARE-DENTAL GENERAL Cons Brushing Operator's Choice [place] [facility] [place] [facility] Social History: Smoking Status (Most [...] VA-TOBACCO NEVER USED [place] [facility] [facility] Tobacco Use History This section includes a history of the smoking, or tobacco-related health factors, that were collected on or before the date of the Encounter. The data comes from the [place] facility where the Encounter took place. Date/Time Smoking Status/Tobacco Use Comment F acility June 17, 2022 01:00 PM VA-TOBACCO NEVER USED [place] [facility] [facility] Jul 16, 2021 01:00 PM VA-TOBACCO NEVER USED [place] [facility] [place] [facility] July 03, 2020 01:00 PM VA-TOBACCO NEVER USED [place] [facility] [place] [facility] Jul 11, 2019 02:57 PM VA-TOBACCO NEVER USED [place] [facility] [place] [facility] Jan 14, 2019 08:50 AM VA-TOBACCO NEVER USED [place] [facility] [place] [facility] Mar 04, 2018 01:20 PM VA-TOBACCO NEVER USED [place] [facility] [place] [facility] May 27, 2017 11:01 AM LIFETIME NON-TOBACCO USER [place] [facility] [place] [facility] May 20, 2016 10:51 AM LIFETIME NON-TOBACCO USER [place] [facility] [place] [facility] May 03, 2015 01:13 PM LIFETIME NON-TOBACCO USER [place] [facility] [place] [facility] Advance Directives: All historical and [...] DIRECTIVE MIGDALIA MILES [place] [facility] [facility] Apr 14, 2019 ADVANCE DIRECTIVE RAFAL BULLARD [place] [facility] [place] [facility] Encounter Notes: All associated encounter notes This section contains the clinical notes associated to the Encounter. Date/Time Encounter Note(s) Provider Source Nov 12, 2023 10:15 PM MENTAL HEALTH TELE PHONE ENCOUNTER NOTE: LOCAL TITLE: TELEPHONE NOTE/MENTAL HEALTH STANDARD TITLE: MENTAL HEALTH TELEPHONE ENCOUNTER NOTE DATE OF NOTE: NOV 12, 2023@22:15 ENTRY DATE: NOV 12, 2023@22:16:14 AUTHOR: NATHAN KIRK EXP COSIGNER: URGENCY: STATUS: COMPLETED INFORMED CONSENT: Previously reviewed rights and limits of confidentiality, mandatory reporting situations, duty to warn and protect, Daniels Warning, (if treatment team finds patient to be an acute danger to themself or others, that. this information could be relayed to a court of law and presented to a title agent), and DOD access for active-duty service members. Provided Suicide Prevention Hotline number, and other contact numbers as necessary. VISIT DURATION: 38 Minutes *[place] had some computer issues today, therefore the session had to be completed over the telephone. DIAGNOSIS: PTSD [employer] STATEMENT OF GOALS/CONCERNS: Reduce irritability, avoidance, work on current challenges (including medical issues, particularly, cancer diagnosis), relationship issues, increase meaningful activities and remain connected with people he is close to. SESSION FOCUS: Session focused on [place]'s medical issues and marital challenges. shared that he was continuing to work with his PCP and other specialists to address current issues, and completion of SCD paperwork. The remainder of the session focused on 's reported marital challenges. He shared situations he finds difficult within the relationship with his , particularly, that [he} doesn't like things to be one way. [place] clarified that his doesn't consider him or his adult children in everyday life or holidays. He stated that she doesn't like or interact with [his] adult children and does what she wants for herself and her children. He shared that he feels like it should be [him] and [his] against the world, not her against [him] , and that he feels like he doesn't have a partner. Revisited the idea of couple's therapy and stated that they have tried it before and that it didn't work because his , colored things her way. The remainder of the session focused on coping skills and self-care. INTERVENTIONS: Addressed stressors regarding marital challenges, focus on the things he can control, [...] PLAN FOR FOLLOW-UP: Next session planned for: 11/17/23 at 1:00pm /rosio/ NATHAN KIRK, Ph.D Clinical Psychologist Signed: 11/13/2023 18:26 NATHAN KIRK [facility]
--- OUTSIDE RECORDS SUMMARY | 2024-02-16 09:14 | XMS_ITS ---
Author Name Department of [place] Organization [facility] [place] Address [address] [place] [address] Care Team Providers Care Guest Services Officer Name Role Phone SUBHA VELAZQUEZ Primary Care [...] GREGORY DIOP Sep 15, 2011 GREGORY PUGA [id number] [phone] PAULA GONZALES PATIENT [facility] [place] MEDICARE SUPPLEMEN [employer] Aug 09, 2017 [id number] [phone] PAULA GONZALES PATIENT [facility] [place] [facility] [employer]MEN [facility] [facility] SUPP PL Aug 09, 2017 [id number] PAULA GONZALES PATIENT MEDICARE (WNR) MEDICARE (M) PART A Nov 10, 2019 PART A [id number] PAULA GONZALES PATIENT MEDICARE (WNR) MEDICARE (M) PART B Apr 09, 2010 PART B [id number] PAULA GONZALES PATIENT MEDICARE (WNR) MEDICARE (M) PART B Apr 09, 2010 PART B [id number] PAULA GONZALES PATIENT MEDICARE (WNR) MEDICARE (M) PART B Apr 09, 2010 PART B [id number] PAULA GONZALES PATIENT MEDICARE (WNR) MEDICARE (M) PART A Nov 09, 2009 PART A [id number] PAULA GONZALES PATIENT MEDICARE (WNR) MEDICARE (M) PART A Nov 09, 2009 PART A [id number] PAULA GONZALES PATIENT Selected Encounter This section includes the information on record at [place] for the Encounter. Date/Time Encounter Type Encounter Description Reason Pro vider Source Oct 14, 2023 12:00 PM Outpatient Encounter COMMUNITY CARE CONSULT IHE Encounter Template Text not used by [place] Plan of Treatment: Future Appointments (+ 6 months) and Future Tests (+/- 45 days) The Plan of Treatment section includes future care activities for the patient [facility] [place] [facility] [place] This section includes future appointments and future [...] 20, 2023 01:00 PM AMBULATORY - [place]ATRY [place] [facility] [place] [facility] Oct 27, 2023 01:00 PM AMBULATORY - [place]CHIATRY [place] [facility] [place] [facility] Nov 03, 2023 01:00 PM AMBULATORY - [place]CHIATRY [place] [facility] [place] [facility] Nov 05, 2023 09:00 AM AMBULATORY - REHAB [place]ICIN [place] [facility] [place] [facility] Nov 05, 2023 12:00 PM AMBULATORY - [place]ICINE [place] [facility] Nov 10, 2023 01:00 PM AMBULATORY - PS[place]CHIATRY [place] [facility] [place] [facility] Nov 17, 2023 01:00 PM AMBULATORY - [place]CHIATRY [place] [facility] [place] [facility] Dec 01, 2023 01:00 PM AMBULATORY - PS[place]CHIATRY [place] [facility] [place] [facility] Dec 08, 2023 09:00 AM AMBULATORY - MEDICINE [place] [facility] [place] [facility] Dec 08, 2023 09:01 AM AM[place] [facility] Dec 08, 2023 01:00 PM AMBULATORY - [facility]IATRY [facility] [place] [facility] Dec 15, 2023 09:00 AM AMBULATORY - NONE [facility] [place] [facility] Dec 15, 2023 01:00 PM AMBULATORY - PSYCHIATRY [facility] [place] [facility] Dec 29, 2023 04:00 PM AMBULATORY - PSYCHIATRY [place] [facility] [place] [facility] Jan 05, 2024 04:00 PM AMBULATORY - PSYCHIATRY [place] [facility] [place] [facility] Jan 26, 2024 04:00 PM AMBULATORY - PSYCHIATRY [place] [facility] [place] [facility] Feb 09, 2024 04:00 PM AMBULATORY - PSYCHIATRY [place] [facility] [place] [facility] Feb 16, 2024 09:00 AM AMBULATORY - MEDICINE [place] [facility] [place] [facility] Feb 19, 2024 01:00 PM AMBULATORY - PSYCHIATRY [place] [facility] [place] [facility] Feb 23, 2024 04:00 PM AMBULATORY - PSYCHIATRY [place] [facility] [place] [facility] Lab Results: +/- 30 days of the encounter This section includes the Chemistry and Hematology Lab Results on record with [place] for the patient. Radiology Reports and Pathology Reports are provided separately, in subsequent sections. Lab Results This section contains the Chemistry/Hematology Results that were resulted 30 days before or 30 daysafter the date of the Encounter. Date/Time Source Result Type Result - Unit Interpretation Reference Range Comment Sep 17, 2023 07:56 AM [place] [facility] [place] [facility] LIPID PANEL FASTING Specimen Type: SERUM No comment entered. Ordering Provider: SUBHA VELAZQUEZ Report Released Date/Time: May 21, 2023 03:02 PM Reporting Lab: [facility] [place] [facility] [address] [address] Performing Lab: [facility] WSTRN [address] [address] CHOLESTEROL 208 mg/dL H TRIGLYCERIDE 154 mg/dL H 0-150 LDL calculated 139 mg/dL H 0-129 CHOL/HDL 5.5 HDL CHOLESTEROL 38 mg/dL L 40-60 Sep 17, 2023 07:56 AM [place] [facility] [place] [facility] BASIC METABOLIC PANEL (non-fasting) Specimen Type: SERUM No comment entered. Ordering Provider: SUBHA VELAZQUEZ Report Released Date/Time: May 21, 2023 03:02 PM Reporting [facility] [address] [facility] [address] Performing Lab: [place] [facility] [address] [facility] [address] UREA NITROGEN 30 mg/dL H 7-25 GLUCOSE [...] 19, 2023 01:00 PM VA-TOBACCO NEVER USED [place] [facility] Tobacco Use History This section includes a history of the smoking, or tobacco-related health factors, that were collected on or before the date of the Encounter. The data comes from the [place] facility where the Encounter took place. Date/Time Smoking Status/Tobacco Use Comment Gisele villalobos June 17, 2022 01:00 PM VA-TOBACCO NEVER USED [place] [facility] [place] [facility] Jul 16, 2021 01:00 PM VA-TOBACCO NEVER USED [place] [facility] [place] [facility] July 03, 2020 01:00 PM VA-TOBACCO NEVER USED [place] [facility] [place] [facility] Jul 11, 2019 02:57 PM VA-TOBACCO NEVER USED [place] [facility] [place] [facility] Jan 14, 2019 08:50 AM VA-TOBACCO NEVER USED [place] [facility] [place] [facility] Mar 04, 2018 01:20 PM VA-TOBACCO NEVER USED [place] [facility] [place] [facility] May 27, 2017 11:01 AM LIFETIME NON-TOBACCO USER [place] [facility] [place] [facility] May 20, 2016 10:51 AM LIFETIME NON-TOBACCO USER [place] [facility] [place] [facility] May 03, 2015 01:13 PM LIFETIME NON-TOBACCO USER [facility] Advance Directives: All historical and current Section [...] ADVANCE DIRECTIVE MIGDALIA MILES [place] [facility] Apr 14, 2019 ADVANCE DIRECTIVE RAFAL BULLARD [facility] N[facility] Encounter Notes: All associated encounter notes This section contains the clinical notes associated to the Encounter. Date/Time Encounter Note(s) Provider Source Oct 14, 2023 12:00 PM NONVA CONSULT: LOCAL TITLE: COMMUNITY CARE-CONSULT RESULT NOTE STANDARD TITLE: NONVA CONSULT DATE OF NOTE: OCT 14, 2023@12:00 ENTRY DATE: NOV 11, 2023@15:35:17 AUTHOR: JEFF GIBBS EXP COSIGNER: URGENCY: STATUS: COMPLETED VistA Imaging - Scanned Document SCANNED DOCUMENT SIGNATURE NOT REQUIRED Electronically Filed: 11/11/2023 by: JEFF RODRIGUEZ [facility]
--- OUTSIDE RECORDS SUMMARY | 2024-02-16 09:14 | XMS_ITS | Encounter Summary ---
Author Name [facility] [place] Organization [facility] [place] Address [address] [place] [address] Care Team Providers Care Tobacco Grower Name Role Phone SUBHA VELAZQUEZ Primary Care [...] GREGORY DIOP Sep 15, 2011 GREGORY PUGA [id number] [phone] PAULA GONZALES PATIENT [facility] [place] MEDICARE SUPPLEMEN [employer] Aug 09, 2017 [id number] PAULA GONZALES PATIENT [facility] [place] MEDICARE SUPPLEMEN [facility] [employer] SUPP PL Aug 09, 2017 [id number] [phone] PAULA GONZALES PATIENT MEDICARE (WNR) MEDICARE (M) PART A Nov 10, 2019 PART A [id number] PAULA GONZALES PATIENT MEDICARE (WNR) MEDICARE (M) PART B Apr 09, 2010 PART B [id number] PAULA GONZALES PATIENT MEDICARE (WNR) MEDICARE (M) PART B Apr 09, 2010 PART B [id number] [id number] PAULA GONZALES PATIENT MEDICARE (WNR) MEDICARE (M) PART B Apr 09, 2010 PART B [id number] [phone] PAULA GONZALES PATIENT MEDICARE (WNR) MEDICARE (M) PART A Nov 09, 2009 PART A [id number] PAULA GONZALES PATIENT MEDICARE (WNR) MEDICARE (M) PART A Nov 09, 2009 PART A [id number] PAULA GONZALES PATIENT Selected Encounter This section includes the information on record at [place] for the Encounter. Date/Time Encounter Type Encounter Description Reason Pro vider Source Nov 05, 2023 12:00 AM Outpatient Encounter COMMUNITY CARE CONSULT IHE Encounter Template Text not used by [place] Plan of Treatment: Future Appointments (+ 6 months) and Future Tests (+/- 45 days) The Plan of Treatment section includes future care activities for the patient from all [place] [facility]. This section includes future appointments and [...] 10, 2023 01:00 PM AMBULATORY - PSYCHIATRY [place] [facility] [place] [facility] Nov 17, 2023 01:00 PM AMBULATORY - PSYCHIATRY [place] [facility] [place] [facility] Dec 01, 2023 01:00 PM AMBULATORY - PSYCHIATRY [place] [facility] [place] [facility] Dec 08, 2023 09:00 AM AMBULATORY - MEDICINE [place] [facility] [place] [facility] Dec 08, 2023 09:01 AM AM[facility]ULATORY - [facility]ICINE [facility] Dec 08, 2023 01:00 PM AMBULATORY - PSYCHIATRY [place] [facility] [place] [facility] Dec 15, 2023 09:00 AM AMBULATORY - NONE [place] [facility] [place] [facility] Dec 15, 2023 01:00 PM AMBULATORY - PSYCHIATRY [place] [facility] [place] [facility] Dec 29, 2023 04:00 PM AMBULATORY - PSYCHIATRY [place] [facility] [place] [facility] Jan 05, 2024 04:00 PM AMBULATORY - PSYCHIATRY [place] [facility] [place] [facility] Jan 26, 2024 04:00 PM AMBULATORY - PSYCHIATRY [place] [facility] [place] [facility] Feb 09, 2024 04:00 PM AMBULATORY - PSYCHIATRY [place] [facility] [place] [facility] Feb 16, 2024 09:00 AM AMBULATORY - MEDICINE [place] [facility] [place] [facility] Feb 19, 2024 01:00 PM AMBULATORY - PSYCHIATRY [place] [facility] [place] [facility] Feb 23, 2024 04:00 PM AMBULATORY - PSYCHIATRY [place] [facility] [place] [facility] Mar 01, 2024 04:00 PM AMBULATORY - PSYCHIATRY [place] [facility] [place] [facility] Mar 29, 2024 09:00 AM AMBULATORY - MEDICINE [place] C [facility] [place] [facility] Social History: Smoking Status (Most [...] VA-TOBACCO NEVER USED [place] [facility] [place] [facility] Tobacco Use History This section includes a history of the smoking, or tobacco-related health factors, that were collected on or before the date of the Encounter. The data comes from the [place] facility where the Encounter took place. Date/Time Smoking Status/Tobacco Use Comment F acility June 17, 2022 01:00 PM VA-TOBACCO NEVER USED [place] [facility] [place] [facility] Jul 16, 2021 01:00 PM VA-TOBACCO NEVER USED [place] [facility] [place] [facility] July 03, 2020 01:00 PM VA-TOBACCO NEVER USED [place] [facility] [place] [facility] Jul 11, 2019 02:57 PM VA-TOBACCO NEVER USED [place] [facility] [place] [facility] Jan 14, 2019 08:50 AM VA-TOBACCO NEVER USED [place] [facility] [place] [facility] Mar 04, 2018 01:20 PM VA-TOBACCO NEVER USED [place] [facility] [place] [facility] May 27, 2017 11:01 AM LIFETIME NON-TOBACCO USER [place] [facility] [place] [facility] May 20, 2016 10:51 AM LIFETIME NON-TOBACCO USER [place] [facility] [place] [facility] May 03, 2015 01:13 PM LIFETIME NON-TOBACCO USER [facility]N [facility] Advance Directives: All historical and current [...] 08, 2019 ADVANCE DIRECTIVE MIGDALIA MILES [place] [facility] Apr 14, 2019 ADVANCE DIRECTIVE RAFAL BULLARD [facility] NTR WSN [employer] [facility] [employer] Encounter Notes: All associated encounter notes This section contains the clinical notes associated to the Encounter. Date/Time Encounter Note(s) Provider Source Nov 05, 2023 12:00 AM NONVA CONSULT: LOCAL TITLE: COMMUNITY CARE-CONSULT RESULT NOTE STANDARD TITLE: NONVA CONSULT DATE OF NOTE: NOV 05, 2023 ENTRY DATE: NOV 25, 2023@08:21:14 AUTHOR: RADHA HUANG MA COSIGNER: URGENCY: STATUS: COMPLETED VistA Imaging - Scanned Document SCANNED DOCUMENT SIGNATURE NOT REQUIRED Electronically Filed: 11/25/2023 by: RADHA HUANG AGRICULTURE WORKER RADHA HUANG [facility] [employer] [facility] [employer]
--- OUTSIDE RECORDS SUMMARY | 2024-02-16 09:15 | XMS_ITS ---
Author Name [facility] [place] [facility] [place] Address [address] [place] [address] Care Team Providers Care Sports Official Name Role Phone SUBHA VELAZQUEZ Primary Care [...] Relationship to Policy Bryson GREGORY PUGA-WN R [place] SPECIAL CLASS GREGORY DIOP Sep 15, 2011 GREGORY PUGA [id number] PAULA GONZALES PATIENT [facility] [place] MEDICARE SUPPLEMEN [facility] Aug 09, 2017 [id number] [phone] PAULA GONZALES PATIENT [facility] [place] MEDICARE SUPPLEMEN [facility] SUPP PL Aug 09, 2017 [id number] [phone] PAULA GONZALES PATIENT MEDICARE (WNR) MEDICARE (M) PART A Nov 10, 2019 PART A [id number] PAULA GONZALES PATIENT MEDICARE (WNR) MEDICARE (M) PART B Apr 09, 2010 PART B [id number] PAULA GONZALES PATIENT MEDICARE (WNR) MEDICARE (M) PART B Apr 09, 2010 PART B [id number] PAUAL GONZALES PATIENT MEDICARE (WNR) MEDICARE (M) PART B Apr 09, 2010 PART B [id number] PAULA GONZALES PATIENT MEDICARE (WNR) MEDICARE (M) PART A Nov 09, 2009 PART A [id number] PAULA GONZALES PATIENT MEDICARE (WNR) MEDICARE (M) PART A Nov 09, 2009 PART A [id number] PAULA GONZALES PATIENT Selected Encounter This section includes the information on record at [place] for the Encounter. Date/Time Encounter Type Encounter Description Reason Pro vider Source Jan 04, 2024 09:58 AM Outpatient Encounter TELEPHONE PRIMARY CARE IHE Encounter Template Text not used by [place] Plan of Treatment: Future Appointments (+ 6 months) and Future Tests (+/- 45 days) The Plan of Treatment section includes future care activities for the patient from all [place] [facility] This section includes future appointments and future orders which are active, pending or scheduled. Future Appointments This section includes appointments that were scheduled to occur 6 months from the date of the Encounter, up to a maximum of 20 appointments. The data comes from all [place] treatment facilities. Appointment Date/Time Appointment Type Appointme nt Facility Name Jan 05, 2024 04:00 PM AMBULATORY - PSYCHIATRY [place] [facility] [place] [facility] Jan 26, 2024 04:00 PM AMBULATORY - PSYCHIATRY [place] [facility] [place] [facility] Feb 09, 2024 04:00 PM AMBULATORY - PSYCHIATRY [place] [facility] [place] [facility] Feb 16, 2024 09:00 AM AMBULATORY - MEDICINE [place] C [facility] [place] [facility] Feb 19, 2024 01:00 PM AMBULATORY - PSYCHIATRY [place] [facility] [place] [facility] Feb 23, 2024 04:00 PM AMBULATORY - PSYCHIATRY [place] [facility] [place] [facility] Mar 01, 2024 04:00 PM AMBULATORY - PSYCHIATRY [place] [facility] [place] [facility] Mar 29, 2024 09:00 AM AMBULATORY - MEDICINE [place] C [facility] [place] [facility] Active, Pending, and Scheduled Orders This section includes a listing of several types of active, pending, and scheduled orders, including clinic medications orders, diagnostic test orders, procedure orders and consult orders; where the start date of the order is 45 days before the date of the Encounter or 45 days after the date of theEncounter. The data comes from all [place] treatment facilities. Test Date/Time Test Type Test Details Facility Name Dec 23, 2023 08:28 AM Consult Order COMMUNITY CARE-DENTAL GENERAL Cons Apartment Leasing Manager's Choice [place] [facility] [place] [facility] Jan 20, 2024 12:12 PM Consult Order COMMUNITY [facility]-UROLOGY Cons Apartment Leasing Manager's Choice [place] [facility] [place] [facility] Social History: Smoking Status (Most current) and Tobacco Use (All prior to encounter date) This section includes the most current, and the historical, smoking and tobacco- related health factors from the [place] facility where the Encounter took place. Current Smoking Status This section includes the most current smoking, or tobacco-related health factor, from the [place] facility where the Encounter took place. Date/Time Current Smoking Status Comment Louisa ity May 19, 2023 01:00 PM VA-TOBACCO NEVER USED [place] [facility] [place] [facility] Tobacco Use History This section includes a history of the smoking, or tobacco-related health factors, that were collected on or before the date of the Encounter. The data comes from the [place] facility where the Encounter took place. Date/Time Smoking Status/Tobacco Use Comment F acility June 17, 2022 01:00 PM VA-TOBACCO NEVER USED [place] [facility] [place] [facility] Jul 16, 2021 01:00 PM VA-TOBACCO NEVER USED [place] [facility] [place] [facility] July 03, 2020 01:00 PM VA-TOBACCO NEVER USED [place] [facility] [place] [facility] Jul 11, 2019 02:57 PM VA-TOBACCO NEVER USED [place] [facility] [place] [facility] Jan 14, 2019 08:50 AM VA-TOBACCO NEVER USED [place] [facility] [place] [facility] Mar 04, 2018 01:20 PM VA-TOBACCO NEVER USED [place] [facility] [place] [facility] May 27, 2017 11:01 AM LIFETIME NON-TOBACCO USER [place] [facility] [place] [facility] May 20, 2016 10:51 AM LIFETIME NON-TOBACCO USER [facility] May 03, 2015 01:13 PM [facility] Advance Directives: All [...] Nov 08, 2019 ADVANCE DIRECTIVE MIGDALIA MILES [place] [facility] Apr 14, 2019 ADVANCE DIRECTIVE RAFAL BULLARD [facility] Encounter Notes: All associated encounter notes This section contains the clinical notes associated to the Encounter. Date/Time Encounter Note(s) Provider Source Jan 04, 2024 09:58 AM TELEPHONE ENCOUNTE R NOTE: LOCAL TITLE: TELEPHONE NOTE/SPECIALTY CLINIC STANDARD TITLE: TELEPHONE ENCOUNTER NOTE DATE OF NOTE: JAN 04, 2024@09:58 ENTRY DATE: JAN 04, 2024@09:59 AUTHOR: SHELIA MALDONADO EXP COSIGNER: URGENCY: STATUS: COMPLETED Gould called requesting the following CPAP supplies to be mailed to his home address which has been confirmed as well as his primary phone: 12 medium sized pillows /rosio/ SHELIA MALDONADO ADVANCED RIDING DOUBLE Signed: 01/04/2024 10:00 Receipt Acknowledged By: 01/04/2024 14:08 /rosio/ PHILLIP GILL CRT RESPIRATORY THERAPIST for SHARRON BROTHERS 01/04/2024 15:00 /rosio/ PATRICE SRIVASTAVA RESPIRATORY THERAPIST 01/04/2024 14:08 /rosio/ PHILLIP GILL CRT RESPIRATORY THERAPIST SHELIA MALDONADO [facility]
--- OUTSIDE RECORDS SUMMARY | 2024-02-16 09:15 | XMS_ITS | Encounter Summary ---
Author Name [facility] [place] Organization [facility] [place] Address [address] [place] [address] Care Team Providers Care Location Man Name Role Phone SUBHA VELAZQUEZ Primary Care [...] GREGORY DIOP Sep 15, 2011 GREGORY PUGA [id number] PAULA FENG PATIENT [facility] [place] MEDICARE SUPPLEMEN [facility] [employer] [facility] [facility] Aug 09, 2017 [id number] [phone] PAULA FENG PATIENT [facility] [place] MEDICARE SUPPLEMEN [facility] SU[facility] Aug 09, 2017 [id number] [phone] PAULA FENG PATIENT MEDICARE (WNR) MEDICARE (M) PART A Nov 10, 2019 PART A [id number] PAULA FENG PATIENT MEDICARE (WNR) MEDICARE (M) PART B Apr 09, 2010 PART B [id number] PAULA FENG PATIENT MEDICARE (WNR) MEDICARE (M) PART B Apr 09, 2010 PART B [id number] PAULA FENG PATIENT MEDICARE (WNR) MEDICARE (M) PART B Apr 09, 2010 PART B [id number] [phone] PAULA FENG PATIENT MEDICARE (WNR) MEDICARE (M) PART A Nov 09, 2009 PART A [id number] PAULA FENG PATIENT MEDICARE (WNR) MEDICARE (M) PART A Nov 09, 2009 PART A [id number] [phone] PAULA FENG PATIENT Selected Encounter This section includes the information on record at [place] for the Encounter. Date/Time Encounter Type Encounter Description Reason Provider Source Dec 29, 2023 04:00 PM PSYTX W PT 45 MINUTES [facility] - IND ICD-10-CM F43.10 Post-traumatic stress disorder, unspecified NATHAN KIRK Mikhail Encounter Template Text not used by [place] Assessments - Encounter Diagnoses This section includes the primary and secondary diagnoses documented for the Encounter. Date/Time Primary/Secondary Diagnosis Diagnosis Name Provider Source Dec 30, 2023 12:29 AM PRIMARY Post-traumatic stress disorder, unspecified NATHAN KIRK [facility] Plan of Treatment: Future [...] 05, 2024 04:00 PM AMBULATORY - PSYCHIATRY [place] [facility] [place] [facility] Jan 26, 2024 04:00 PM AMBULATORY - PSYCHIATRY [place] [facility] [place] [facility] Feb 09, 2024 04:00 PM AMBULATORY - PSYCHIATRY [place] [facility] [place] [facility] Feb 16, 2024 09:00 AM AMBULATORY - MEDICINE [place] C [facility] [place] [facility] Feb 19, 2024 01:00 PM AMBULATORY - PSYCHIATRY [place] [facility] [place] [facility] Feb 23, 2024 04:00 PM AMBULATORY - PSYCHIATRY [place] [facility] [place] [facility] Mar 01, 2024 04:00 PM AMBULATORY - PSYCHIATRY [place] [facility] [place] [facility] Mar 29, 2024 09:00 AM AM[facility]ULATORY [facility] Active, Pending, and Scheduled Orders [...] AM Consult Order COMMUNITY CARE-DENTAL GENERAL Cons Auto Parts Manager's Choice [facility] Jan 20, 2024 12:12 PM Consult Order COMMUNITY CARE-UROLOGY Cons [employer] Manager's Choice [facility] Social History: Smoking Status (Most [...] 19, 2023 01:00 PM VA-TOBACCO NEVER USED [facility] Tobacco Use History This section includes a history of the smoking, or tobacco-related health factors, that were collected on or before the date of the Encounter. The data comes from the [place] facility where the Encounter took place. Date/Time Smoking Status/Tobacco Use Comment F acility June 17, 2022 01:00 PM VA-TOBACCO NEVER USED [place] [facility] [place] [facility] Jul 16, 2021 01:00 PM VA-TOBACCO NEVER USED [place] [facility] [facility] July 03, 2020 01:00 PM VA-TOBACCO NEVER USED [facility] [place] [facility] Jul 11, 2019 02:57 PM VA-TOBACCO NEVER USED [place] [facility] [facility] Jan 14, 2019 08:50 AM VA-TOBACCO NEVER USED [place] [facility] [place] [facility] Mar 04, 2018 01:20 PM VA-TOBACCO NEVER USED [place] [facility] [place] [facility] May 27, 2017 11:01 AM LIFETIME NON-TOBACCO USER [facility] [place] [facility] May 20, 2016 10:51 AM LIFETIME NON-TOBACCO USER [place] [facility] [place] [facility] May 03, 2015 01:13 PM LIFETIME NON-TOBACCO USER [place] [facility] [place] [facility] Advance Directives: All historical and [...] ADVANCE DIRECTIVE MIGDALIA MILES [place] [facility] [place] [facility] Apr 14, 2019 ADVANCE DIRECTIVE RAFAL BULLARD [place] C NTRL [facility] [place] [facility] Encounter Notes: All associated encounter notes This section contains the clinical notes associated to the Encounter. Date/Time Encounter Note(s) Provider Source Dec 29, 2023 11:56 PM TELEHEALTH NOTE: LOCAL TITLE: [facility] VIDEO CONNECT PSYCHOLOGY NOTE STANDARD TITLE: TELEHEALTH NOTE DATE OF NOTE: DEC 29, 2023@23:56 ENTRY DATE: DEC 29, 2023@23:56:16 AUTHOR: NATHAN KIRK EXP COSIGNER: URGENCY: STATUS: COMPLETED [place] VIDEO CONNECT PSYCHOLOGY NOTE Has ADDENDA A Video Connect (VVC) Standard Documentation VVC Clinician Resources Only: E911 (Emergency Call Relay Center): [phone] National Veterans Crisis Line - 968 then press #1. TRES Suicide Coordinator [phone], Ext. [phone]; Back-up Ext. [phone] [place] TRES [place] [phone] Introduction: Visit is being conducted by [place] Bloc Connect. Othello identified with 2 identifiers: [X] Full Name [ ] Date of [ ] VA ID Card [X] Visual Recognition Emergency Plan: confirmed and/or provided the following information in case of emergency or technology failure. PATIENT PHONE - PHONE NUMBER [CELLULAR] - Is patient phone number correct, if not, enter below: 's phone number: PRASANTH FENG [address], [place], [address] Othello's present location and address for appointment: [address] [place] [address] 's emergency contact name and phone number: Layla Feng Othello reported that location is private and safe: Yes Informed Consent: informed of the risks and benefits of Telehealth video care. Othello has the right to refuse video services. If refuses video visit, a [id number] visit will be scheduled. 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 Provided Suicide Prevention Hotline number, and other contact numbers as necessary. VISIT DURATION: 27 Minutes DIAGNOSIS: PTSD [employer]ETER[employer] STATEMENT OF GOALS/CONCERNS: Reduce irritability, avoidance, work on current challenges (including medical issues, particularly, cancer diagnosis), relationship issues, increase. meaningful activities and remain connected with people he is close to. SESSION FOCUS: Session focused on current symptoms, daily routine, home projects, medical issues, family dynamics, plans for upcoming holidays, and explored finding balance in his life, including enjoyable activities that he would like to incorporate into his routine to increase quality of life. stated he will work on that between sessions. INTERVENTIONS: Reflective listening and support, revisited finding balance, and what that would look like, engage in meaningful activities, increase outside and social activities, and self-care. ASSESSMENT: BRIEF ASSESSMENT OF MENTAL [...] PLAN FOR FOLLOW-UP: Next session planned for: 12/22/23 at 4:00pm /fay KIRK, Ph.D Clinical Psychologist Signed: 12/30/2023 00:29 01/01/2024 ADDENDUM STATUS: COMPLETED Next session planned for: 01/05/24 at 4:00pm /fay KIRK, Ph.D Clinical Psychologist Signed: 01/01/2024 22:50 NATHAN KIRK [place] [facility]
--- OUTSIDE RECORDS SUMMARY | 2024-02-16 09:15 | XMS_ITS ---
Author Name [place] Address [address] [place] [address] Care Team Providers Care Foreclosure Specialist Name Role Phone SUBHA VELAZQUEZ Primary Care [...] GREGORY DIOP Sep 15, 2011 GREGORY PUGA [id number] PAULA GONZALES PATIENT [facility] [place] MEDICARE SUPPLEMEN [facility] [employer] [facility] Aug 09, 2017 [id number] PAULA GONZALES PATIENT [facility] [place] MEDICARE SUPPLEMEN [facility] ELENA [facility] SUPP PL Aug 09, 2017 [id number] PAULA GONZALES PATIENT MEDICARE (WNR) MEDICARE (M) PART A Nov 10, 2019 PART A [id number] PAULA GONZALES PATIENT MEDICARE (WNR) MEDICARE (M) PART B Apr 09, 2010 PART B [id number] [id number] PAULA GONZALES PATIENT MEDICARE (WNR) MEDICARE (M) PART B Apr 09, 2010 PART B [id number] PAULA GONZALES PATIENT MEDICARE (WNR) MEDICARE (M) PART B Apr 09, 2010 PART B [id number] [phone] PAULA GONZALES PATIENT MEDICARE (WNR) MEDICARE (M) PART A Nov 09, 2009 PART A [id number] PAULA GONZALES PATIENT MEDICARE (WNR) MEDICARE (M) PART A Nov 09, 2009 PART A [id number] PAULA GONZALES PATIENT Selected Encounter This section includes the information on record at [place] for the Encounter. Date/Time Encounter Type Encounter Description Reason Pro vider Source Jan 19, 2024 04:00 PM Outpatient Encounter [facility] Encounter Template Text not used by [place] Plan of Treatment: Future Appointments (+ 6 months) and Future Tests (+/- 45 days) The Plan of Treatment section includes future care activities for the patient [facility] [place] [facility]. This section includes future appointments and future orders which are active, pending or scheduled. Future Appointments This section includes appointments that were scheduled to occur 6 months from the date of the Encounter, up to a maximum of 20 appointments. The data comes from all [place] treatment facilities. Appointment Date/Time Appointment Type Appointme nt Facility Name Jan 26, 2024 04:00 PM AMBULATORY - PS[place]CHIATRY [place] [facility] [facility] Feb 09, 2024 04:00 PM AMBULATORY - PSYCHIATRY [place] [facility] [place] [facility] Feb 16, 2024 09:00 AM AMBULATORY - MEDICINE [facility] NTRL [place] [facility] Feb 19, 2024 01:00 PM AMBULATORY - PSYCHIATRY [place] [facility] [place] [facility] Feb 23, 2024 04:00 PM AMBULATORY - PSYCHIATRY [place] [facility] [place] [facility] Mar 01, 2024 04:00 PM AMBULATORY - PSYCHIATRY [place] [facility] [place] [facility] Mar 29, 2024 09:00 AM AMBULATORY - MEDICINE [facility] NTRL [place] [facility] Active, Pending, and Scheduled Orders [...] AM Consult Order COMMUNITY CARE-DENTAL GENERAL Cons Head Of Stock's Choice [place] [facility] [place] [facility] Jan 20, 2024 12:12 PM Consult Order COMMUNITY [facility]-UROLOGY Cons Head Of Stock's Choice [place] [facility] [place] [facility] Social History: Smoking Status (Most [...] VA-TOBACCO NEVER USED [place] [facility] [place] [facility] Tobacco Use History This section includes a history of the smoking, or tobacco-related health factors, that were collected on or before the date of the Encounter. The data comes from the [place] facility where the Encounter took place. Date/Time Smoking Status/Tobacco Use Comment F acility June 17, 2022 01:00 PM VA-TOBACCO NEVER USED [place] [facility] [facility] Jul 16, 2021 01:00 PM VA-TOBACCO NEVER USED [place] [facility] [facility] July 03, 2020 01:00 PM VA-TOBACCO NEVER USED [place] [facility] [facility] Jul 11, 2019 02:57 PM VA-TOBACCO NEVER USED [place] [facility] [facility] Jan 14, 2019 08:50 AM VA-TOBACCO NEVER USED [place] [facility] [facility] Mar 04, 2018 01:20 PM VA-TOBACCO NEVER USED [place] [facility] [facility] May 27, 2017 11:01 AM LIFETIME NON-TOBACCO USER [place] [facility] [place] [facility] May 20, 2016 10:51 AM LIFETIME NON-TOBACCO USER [place] [facility] [place] [facility] May 03, 2015 01:13 PM LIFETIME NON-TOBACCO USER [facility] Advance Directives: All historical and current Section [...] Provider Source Nov 08, 2019 ADVANCE DIRECTIVE GINGERMIGDALIA SMITHAN [facility] Apr 14, 2019 ADVANCE DIRECTIVE RAFAL BULLARD [facility] Encounter Notes: All associated encounter notes This section contains the clinical notes associated to the Encounter. Date/Time Encounter Note(s) Provider Source Jan 19, 2024 02:13 PM ADMINISTRATIVE NOTE: LOCAL TITLE: ADMINISTRATIVE NOTE STANDARD TITLE: ADMINISTRATIVE NOTE DATE OF NOTE: JAN 19, 2024@14:13 ENTRY DATE: JAN 19, 2024@14:13:44 AUTHOR: JUANCARLOS MNEDES EXP COSIGNER: URGENCY: STATUS: COMPLETED [facility] spoke with to let them know that provider is out today and today's visit has been cancelled. [facility] is aware that provider will reach out to set up future appointments if necessary. /rosio/ JUANCARLOS MENDES ADVANCED CURBSTONE SETTER Signed: 01/19/2024 14:14 Receipt Acknowledged By: 01/20/2024 16:47 /rosio/ NATHAN KIRK, Ph.D Clinical Psychologist JUANCARLOS MENDES [facility]
--- OUTSIDE RECORDS SUMMARY | 2024-02-16 09:15 | XMS_ITS ---
Author Name [facility] [place] Address [address] [place] [address] Care Team Providers Care Assembler Plastic Boat Name Role Phone SUBHA VELAZQUEZ Primary Care [...] GREGORY DIOP Sep 15, 2011 GREGORY PUGA [id number] [phone] PAULA GONZALES PATIENT [facility] MEDICARE SUPPLEMEN [place] [facility] Aug 09, 2017 [id number] PAULA GONZALES PATIENT [facility] MEDICARE SUPPLEMEN [place] [facility] [facility] AGENC Y SUPP PL Aug 09, 2017 [id number] [phone] PAULA GONZALES PATIENT MEDICARE (WNR) MEDICARE (M) PART A Nov 10, 2019 PART A [id number] PAULA GONZALES PATIENT MEDICARE (WNR) MEDICARE (M) PART B Apr 09, 2010 PART B [id number] PAULA GONZALES PATIENT MEDICARE (WNR) MEDICARE (M) PART B Apr 09, 2010 PART B [id number] PAULA GONZALES PATIENT MEDICARE (WNR) MEDICARE (M) PART B Apr 09, 2010 PART B [id number] PAULA GONZALES PATIENT MEDICARE (WNR) MEDICARE (M) PART A Nov 09, 2009 PART A [id number] PAULA GONZALES PATIENT MEDICARE (WNR) MEDICARE (M) PART A Nov 09, 2009 PART A [id number] PAULA GONZALES PATIENT Selected Encounter This section includes the information on record at [place] for the Encounter. Date/Time Encounter Type Encounter Description Reason Pro vider Source Dec 22, 2023 04:00 PM Outpatient Encounter [facility] Encounter Template Text not used by [place] Plan of Treatment: Future Appointments (+ 6 months) and Future Tests (+/- 45 days) The Plan of Treatment section includes future care activities for the patient from [facility] [place] [facility] This section includes future appointments and future orders which are active, pending or scheduled. Future Appointments This section includes appointments that were scheduled to occur 6 months from the date of the Encounter, up to a maximum of 20 appointments. The data comes from all [place] treatment facilities. Appointment Date/Time Appointment Type Appointme nt Facility Name Dec 29, 2023 04:00 PM AMBULATORY [place]ATRY [place] [facility] [place] [facility] Jan 05, 2024 04:00 PM AMBULATORY [place]ATRY [place] [facility] [place] [facility] Jan 26, 2024 04:00 PM AMBULATORY - [place]IATRY [place] [facility] [place] [facility] Feb 09, 2024 04:00 PM AMBULATORY - PS[place]IATRY [place] [facility] [place] [facility] Feb 16, 2024 09:00 AM AMBULATORY - MEDICINE [place] [facility] [place] [facility] Feb 19, 2024 01:00 PM AMBULATORY - PS[place]CHIATRY [place] [facility] [place] [facility] Feb 23, 2024 04:00 PM AMBULATORY - PS[place]CHIATRY [place] [facility] [place] [facility] Mar 01, 2024 04:00 PM AMBULATORY - PS[place]IATRY [place] [facility] [place] [facility] Mar 29, 2024 09:00 AM AM[place]UL[place] [place] [facility] [place] [facility] Active, Pending, and Scheduled Orders This section [...] AM Consult Order COMMUNITY CARE-DENTAL GENERAL Cons Counselor Marriage And Family's Choice [place] [facility] [place] [facility] Jan 20, 2024 12:12 PM Consult Order COMMUNITY CARE-UROLOGY Cons Counselor Marriage And Family's Choice [place] [facility] [place] [facility] Social History: Smoking Status (Most current) and [...] VA-TOBACCO NEVER USED [place] [facility] [place] [facility] Tobacco Use History This section includes a history of the smoking, or tobacco-related health factors, that were collected on or before the date of the Encounter. The data comes from the [place] facility where the Encounter took place. Date/Time Smoking Status/Tobacco Use Comment F acility June 17, 2022 01:00 PM VA-TOBACCO NEVER USED [place] [facility] [place] [facility] Jul 16, 2021 01:00 PM VA-TOBACCO NEVER USED [place] [facility] [place] [facility] July 03, 2020 01:00 PM VA-TOBACCO NEVER USED [place] [facility] [place] [facility] Jul 11, 2019 02:57 PM VA-TOBACCO NEVER USED [place] [facility] [place] [facility] Jan 14, 2019 08:50 AM VA-TOBACCO NEVER USED [place] [facility] [place] [facility] Mar 04, 2018 01:20 PM VA-TOBACCO NEVER USED [place] [facility] [place] [facility] May 27, 2017 11:01 AM LIFETIME [facility] May 20, 2016 10:51 AM LIFETIME [facility]ACCO [facility] May 03, 2015 01:13 PM LIFETIME [facility]BACCO [facility] Advance Directives: All historical and [...] Nov 08, 2019 ADVANCE DIRECTIVE MIGDALIA MILES [facility] Apr 14, 2019 ADVANCE DIRECTIVE RAFAL BULLARD [facility] Encounter Notes: All associated encounter notes This section contains the clinical notes associated to the Encounter. Date/Time Encounter Note(s) Provider Source Dec 22, 2023 08:51 AM ADMINISTRATIVE NOTE: LOCAL TITLE: ADMINISTRATIVE NOTE STANDARD TITLE: ADMINISTRATIVE NOTE DATE OF NOTE: DEC 22, 2023@08:51 ENTRY DATE: DEC 22, 2023@08:51:43 AUTHOR: JUANCARLOS MENDES EXP COSIGNER: URGENCY: STATUS: COMPLETED AMSA spoke with who is aware that provider is out. confirmed next 12/29/2023 4pm c appointment and reports that he is ok seeing provider at that time. /rosio/ JUANCARLOS MENDES ADVANCED LINE OUT WORKER Signed: 12/22/2023 08:52 Receipt Acknowledged By: 12/23/2023 08:17 /rosio/ NATHAN KIRK, Ph.D Clinical Psychologist JUANCARLOS MENDES [facility]
--- OUTSIDE RECORDS SUMMARY | 2024-02-16 09:15 | XMS_ITS | Encounter Summary ---
Author Name [facility] [place] Address [address] [place] [address] Care Team Providers Care Inspector Tool Name Role Phone SUBHA VELAZQUEZ Primary Care [...] Name Patient's Relationship to Policy Bryson GREGORY PUAG-MANI R [place] SPECIAL CLASS GREGORY DIOP Sep 15, 2011 GREGORY PUGA [id number] PAULA GONZALES PATIENT [facility] [place] MEDIC[facility] SUPPLEMEN [facility] STATE AGENC Y Aug 09, 2017 [id number] [phone] PAULA GONZALES PATIENT [facility] [place] MED[facility] SUPPLEMEN [place] [facility] [facility] [facility] SUPP PL Aug 09, 2017 [id number] PAULA GONZALES PATIENT MEDICARE (WNR) MEDICARE (M) PART A Nov 10, 2019 PART A [id number] PAULA GONZALES PATIENT MEDICARE (WNR) MEDICARE (M) PART B Apr 09, 2010 PART B [id number] PAULA GONZALES PATIENT MEDICARE (WNR) MEDICARE (M) PART B Apr 09, 2010 PART B [id number] [id number] PAULA GONZALES PATIENT MEDICARE (WNR) MEDICARE (M) PART B Apr 09, 2010 PART B [id number] [phone] PAULA GONZALES PATIENT MEDICARE (WNR) MEDICARE (M) PART A Nov 09, 2009 PART A [id number] [id number] PAULA GONZALES PATIENT MEDICARE (WNR) MEDICARE (M) PART A Nov 09, 2009 PART A [id number] PAULA GONZALES PATIENT Selected Encounter This section includes the information on record at [place] for the Encounter. Date/Time Encounter Type Encounter Description Reason Provider Source Dec 14, 2023 10:35 AM POS AIRWAY PRESSURE CPAP TELEPHONE/MEDICINE ICD-10-CM G47.39 Other sleep apnea PHILLIP GILL [facility] Encounter Template Text not used by [place] Assessments - Encounter Diagnoses This section includes the primary and secondary diagnoses documented for the Encounter. Date/Time Primary/Secondary Diagnosis Diagnosis Name Provider Source Dec 14, 2023 10:35 AM PRIMARY Other sleep apnea PHILLIP GILL [facility] Plan of Treatment: Future Appointments (+ 6 months) and Future Tests (+/- 45 days) The Plan of Treatment section includes future care activities for the patient from all [place] [facility]. This section includes future appointments [...] 15, 2023 09:00 AM AMBULATORY - NONE [place] [facility] [place] [facility] Dec 15, 2023 01:00 PM AMBULATORY - PS[place]CHIATRY [place] [facility] [place] [facility] Dec 29, 2023 04:00 PM AMBULATORY - PS[place]CHIATRY [place] [facility] [place] [facility] Jan 05, 2024 04:00 PM AMBULATORY - PS[place]CHIATRY [place] [facility] [place] [facility] Jan 26, 2024 04:00 PM AMBULATORY - PS[place]CHIATRY [place] [facility] [place] [facility] Feb 09, 2024 04:00 PM AMBULATORY - PS[place]CHIATRY [place] [facility] [place] [facility] Feb 16, 2024 09:00 AM AMBULATORY - MEDICINE [facility] [place] [facility] Feb 19, 2024 01:00 PM AMBULATORY - PS[place]CHIATRY [place] [facility] [place] [facility] Feb 23, 2024 04:00 PM AMBULATORY - PS[place]CHIATRY [place] [facility] [place] [facility] Mar 01, 2024 04:00 PM [facility] [place] [facility] Mar 29, 2024 09:00 AM AMBULATORY - MEDICINE [facility] Active, Pending, and Scheduled Orders This section includes a listing of several types of active, pending, and scheduled orders, including clinic medications orders, diagnostic test orders, procedure orders and consult orders; where the start date of the order is 45 days before the date of the Encounter or 45 days after the date of theEncounter. The data comes from all [place] treatment facilities. Test Date/Time Test Type Test Details Facility Name Dec 23, 2023 08:28 AM Consult Order COMMUNITY CARE-DENTAL GENERAL Cons [place] Nurse's Choice [facility] Jan 20, 2024 12:12 PM Consult Order COMMUNITY CARE-UROLOGY [facility] [place] Nurse's Choice [facility] Social History: Smoking Status (Most current) [...] Date/Time Current Smoking Status Comment Facil ity Jul 17, 2000 02:08 PM LIFETIME NON-SMOKER [place] Advance Directives: All historical and current Section [...] Nov 08, 2019 ADVANCE DIRECTIVE MIGDALIA MILES [facility] Apr 14, 2019 ADVANCE RAFAL MCMILLAN [place] C [facility] Encounter Notes: All associated encounter notes This section contains the clinical notes associated to the Encounter. Date/Time Encounter Note(s) Provider Source Dec 14, 2023 10:35 AM SLEEP MEDICINE NOT E: LOCAL TITLE: CPAP CLINIC NOTE STANDARD TITLE: SLEEP MEDICINE NOTE DATE OF NOTE: DEC 14, 2023@10:35 ENTRY DATE: DEC 14, 2023@10:35:39 AUTHOR: PHILLIP GILL COSIGNER: URGENCY: STATUS: COMPLETED Telephone Coding and Documentation: Diagnosis: Sleep Apnea Time spent with Patient via telephone: 15 minutes. Art has complaint his machine: Last Thursday12/11/2023 he turned it on and it was the loudest its ever been sounding like a vaccum. He would shut it on and off- eventually it took about 3 seconds to turn off. Davis hasnt been able to use it since then and he doesnt feel comfortable not being able to use it. We talked about where the leak could be coming from and checking the hose and tub, possibly trying a differest size cushion. He was advised how the Smart Start/Stop works when a very large leak is present. said he will try it again tonight but would like to see Yaa just in case. There was a cancellation in clinic so he will be able to bring his ASV in. /rosio/ PHILLIP GILL, SELF PROPELLED HOT MIX ROLLER OPERATOR RESPIRATORY THERAPIST Signed: 12/14/2023 10:47 PHILLIP GILL
--- OUTSIDE RECORDS SUMMARY | 2024-02-16 09:15 | XMS_ITS ---
Author Name [facility] [place] Organization [place] Address [address] [place] [address] Care Team Providers Care Spinning Bath Person Name Role Phone SUBHA VELAZQUEZ Primary Care [...] GREGORY DIOP Sep 15, 2011 GREGORY PUGA [id number] PAULA GONZALES PATIENT [facility] [place] MEDICARE SUPPLEMEN [place] [employer] Aug 09, 2017 [id number] [phone] PAULA GONZALES PATIENT [facility] [place] MEDICARE SUPPLEMEN [place] [employer] [facility] SUPP PL Aug 09, 2017 [id number] PAULA GONZALES PATIENT MEDICARE (WNR) MEDICARE (M) PART A Nov 10, 2019 PART A [id number] [id number] PAULA GONZALES PATIENT MEDICARE (WNR) MEDICARE (M) PART B Apr 09, 2010 PART B [id number] [phone] PAULA GONZALES PATIENT MEDICARE (WNR) MEDICARE (M) PART B Apr 09, 2010 PART B [id number] GR59 PAULA GONZALES PATIENT MEDICARE (WNR) MEDICARE (M) PART B Apr 09, 2010 PART B [id number] [phone] PAULA GONZALES PATIENT MEDICARE (WNR) MEDICARE (M) PART A Nov 09, 2009 PART A [id number] PAULA GONZALES PATIENT MEDICARE (WNR) MEDICARE (M) PART A Nov 09, 2009 PART A [id number] PAULA GONZALES PATIENT Selected Encounter This section includes the information on record at [place] for the Encounter. Date/Time Encounter Type Encounter Description Reason Provider Source Dec 15, 2023 09:00 AM PATIENT EDUCATION MATERIALS SLEEP MEDICINE ICD-10-CM G47.39 Other sleep apnea PATRICE SRIVASTAVA Mikhail Encounter Template Text not used by [place] Assessments - Encounter Diagnoses This section includes the primary and secondary diagnoses documented for the Encounter. Date/Time Primary/Secondary Diagnosis Diagnosis Name Provider Source Dec 29, 2023 10:16 AM PRIMARY Other sleep apnea PATRICE SRIVASTAVA [place] [facility] [place] [facility] Plan of Treatment: Future Appointments (+ [...] AMBULATORY - PSYCHIATRY [place] [facility] [place] [facility] Jan 05, 2024 04:00 PM AMBULATORY - PSYCHIATRY [place] [facility] [place] [facility] Jan 26, 2024 04:00 PM AMBULATORY - PSYCHIATRY [place] [facility] [place] [facility] Feb 09, 2024 04:00 PM AMBULATORY - PSYCHIATRY [place] [facility] [place] [facility] Feb 16, 2024 09:00 AM AMBULATORY - MEDICINE [place] [facility] [place] [place] [facility] Feb 19, 2024 01:00 PM AMBULATORY - PSYCHIATRY [place] [facility] [place] [facility] Feb 23, 2024 04:00 PM AMBULATORY - PSYCHIATRY [place] [facility] [place] [facility] Mar 01, 2024 04:00 PM AMBULATORY - PSYCHIATRY [place] [facility] [place] [facility] Mar 29, 2024 09:00 AM AMBULATORY - MEDICINE [place] [facility] Active, Pending, and Scheduled [...] AM Consult Order COMMUNITY CARE-DENTAL GENERAL Cons Landman's Choice [place] [facility] [place] [facility] Jan 20, 2024 12:12 PM Consult Order COMMUNITY CARE-UROLOGY Cons [place]man's Choice [place] [facility] [place] [facility] Social [...] 2023 01:00 PM VA[facility]TOBACCO [facility] Tobacco Use History This [...] CNTRL [place] [facility] Jul 16, 2021 01:00 PM VA-TOBACCO NEVER USED [place] [facility] [place] [facility] July 03, 2020 01:00 PM VA-TOBACCO NEVER USED [place] [facility] [place] [facility] Jul 11, 2019 02:57 PM VA-TOBACCO NEVER USED [place] [facility] [place] [facility] Jan 14, 2019 08:50 AM VA-TOBACCO NEVER USED [place] [facility] [place] [facility] Mar 04, 2018 01:20 PM VA-TOBACCO NEVER USED [place] [facility] [place] [facility] May 27, 2017 11:01 AM LIFETIME NON-TOBACCO USER [place] [facility] [place] [facility] May 20, 2016 10:51 AM LIFETIME NON-TOBACCO USER [place] [facility] [place] [facility] May 03, 2015 01:13 PM LIFETIME NON-TOBACCO USER [place] [facility] Advance Directives: All historical [...] DIRECTIVE MIGDALIA MILES [place] [facility] [place] [facility] Apr 14, 2019 ADVANCE DIRECTIVE RAFAL BULLARD [place] [facility] Encounter Notes: All associated encounter notes This section contains the clinical notes associated to the Encounter. Date/Time Encounter Note(s) Provider Source Dec 15, 2023 09:26 AM SLEEP MEDICINE NOT E: LOCAL TITLE: CPAP CLINIC NOTE STANDARD TITLE: SLEEP MEDICINE NOTE DATE OF NOTE: DEC 15, 2023@09:26 ENTRY DATE: DEC 15, 2023@09:27:05 AUTHOR: PATRICE SRIVASTAVA EXP COSIGNER: URGENCY: STATUS: COMPLETED Perrin diagnosed with sleep apnea seen in clinic for mask leak and noise. Perrin device is functioning as expected, no noise generated. Perrin shows a large leak using P10 nasal pillows, medium cushion. had a whole in the vent portion of the front of the pillow system. He states his dog likes his equipment and it does appear there is a puncture in the vent of the nasal cushion. P10 was replaced with his spare system and the pillows passed mask fit. Per [facility] tracking he should have order of supplies ordered by AMAIRANI sleep MD tomorrow. He will let us know which mask system he prefers. His device ran quietly the entire time. I offered replacement as often they get noisier as they warm up but was agreeable to wait and see now that leak is corrected. [facility] Compliance Report Usage 11/14/2023 - 12/13/2023 Usage days 28/30 days (93%) >= 4 hours 26 days (87%) < 4 hours 2 days (7%) Usage hours 167 hours 44 minutes Average usage (total days) 5 hours 35 minutes Average usage (days used) 5 hours 59 minutes Median usage (days used) 6 hours 16 minutes Total used hours (value since last reset - 12/13/2023) 1,014 hours AirCurve 10 ASV Serial number [id number] Mode ASV EPAP 7 cmH2O Min PS 3 cmH2O Max PS 15 cmH2O Therapy Leaks - L/min Median: 39.9 95th percentile: 68.2 Maximum: 82.2 Events per hour AI: 0.2 HI: 3.8 AHI: 4.0 /rosio/ PATRICE SRIVASTAVA RESPIRATORY THERAPIST Signed: 12/15/2023 09:44 PATRICE SRIVASTAVA [place] [facility]
--- OUTSIDE RECORDS SUMMARY | 2024-02-16 09:15 | XMS_ITS ---
Author Name [facility] [place] [facility] [place] Organization [facility] [place] Address [address] [place] [address] Care Team Providers Care Physical Scientist Name Role Phone SUBHA VELAZQUEZ Primary Care [...] GREGORY DIOP Sep 15, 2011 GREGORY PUGA [id number] PAULA GONZALES PATIENT [facility] MEDICARE SUPPLEMEN [facility] Aug 09, 2017 [id number] [phone] PAULA GONZALES [facility]IENT [facility] MEDICARE SUPPLEMEN [facility] SUPP PL Aug 09, 2017 [id number] PAULA GONZALES PATIENT MEDICARE (WNR) MEDICARE (M) PART A Nov 10, 2019 PART A [id number] PAULA GONZALES PATIENT MEDICARE (WNR) MEDICARE (M) PART B Apr 09, 2010 PART B [id number] PAULA GONZALES PATIENT MEDICARE (WNR) MEDICARE (M) PART B Apr 09, 2010 PART B [id number] PAULA GONZALES PATIENT MEDICARE (WNR) MEDICARE (M) PART B Apr 09, 2010 PART B [id number] [phone] PAULA GONZALES PATIENT MEDICARE (WNR) MEDICARE (M) PART A Nov 09, 2009 PART A [id number] PAULA GONZALES PATIENT MEDICARE (WNR) MEDICARE (M) PART A Nov 09, 2009 PART A [id number] PAULA GONZALES PATIENT Selected Encounter This section includes the information on record at [place] for the Encounter. Date/Time Encounter Type Encounter Description Reason Pro vider Source Aug 11, 2023 12:00 AM Outpatient Encounter COMMUNITY CARE CONSULT IHE Encounter Template Text not used by [place] Plan of Treatment: Future Appointments (+ 6 months) and Future Tests (+/- 45 days) The Plan of Treatment section includes future care activities for the patient [facility] [place] [facility] This section includes future appointments [...] REHAB MEDICIN E [place] [facility] [place] [facility] Sep 01, 2023 01:00 PM AMBULATORY - PSYCHIATRY [place] [facility] [place] [facility] Sep 08, 2023 01:00 PM AMBULATORY - PSYCHIATRY [place] [facility] [place] [facility] Sep 15, 2023 01:00 PM AMBULATORY - PSYCHIATRY [facility] [place] [facility] Sep 22, 2023 01:00 PM AMBULATORY - PSYCHIATRY [facility] [place] [facility] Sep 24, 2023 09:00 AM AMBULATORY - MEDICINE [place] [facility] [place] [facility] Sep 24, 2023 10:30 AM AMBULATORY - MEDICINE [place] [facility] [place] [facility] Sep 24, 2023 11:30 AM AMBULATORY - REHAB MEDICIN E [place] [facility] [place] [facility] Sep 25, 2023 01:00 PM AMBULATORY - MEDICINE [place] [facility] [place] [facility] Sep 29, 2023 01:00 PM AMBULATORY - PSYCHIATRY [facility] [place] [facility] Oct 13, 2023 08:00 AM AMBULATORY - MEDICINE [place] [facility] [place] [facility] Oct 13, 2023 01:00 PM AMBULATORY - PSYCHIATRY [place] [facility] [place] [facility] Oct 14, 2023 08:00 AM AMBULATORY - MEDICINE [place] [facility] [place] [facility] Oct 20, 2023 01:00 PM AMBULATORY - PSYCHIATRY [place] [facility] [place] [facility] Oct 27, 2023 01:00 PM AMBULATORY - PSYCHIATRY [place] [facility] [place] [facility] Nov 03, 2023 01:00 PM AMBULATORY - PSYCHIATRY [place] [facility] [place] [facility] Nov 05, 2023 09:00 AM AMBULATORY - REHAB MEDICIN E [place] [facility] [place] [facility] Nov 05, 2023 12:00 PM AMBULATORY - MEDICINE [place] [facility] [place] [facility] Nov 10, 2023 01:00 PM AMBULATORY - PSYCHIATRY [place] [facility] [place] [facility] Nov 17, 2023 01:00 PM AMBULATORY - PSYCHIATRY [place] [facility] [place] [facility] Social History: Smoking Status (Most [...] 19, 2023 01:00 PM [facility]ACCO [facility] Tobacco Use History This section includes a history of the smoking, or tobacco-related health factors, that were collected on or before the date of the Encounter. The data comes from the [place] facility where the Encounter took place. Date/Time Smoking Status/Tobacco Use Comment F accynthia June 17, 2022 01:00 PM VA-TOBACCO NEVER USED [place] [facility] [place] [facility] Jul 16, 2021 01:00 PM VA-TOBACCO NEVER USED [place] [facility] [place] [facility] July 03, 2020 01:00 PM VA-TOBACCO NEVER USED [place] [facility] [place] [facility] Jul 11, 2019 02:57 PM VA-TOBACCO NEVER USED [place] [facility] [place] [facility] Jan 14, 2019 08:50 AM VA-TOBACCO NEVER USED [place] [facility] [place] [facility] Mar 04, 2018 01:20 PM VA-TOBACCO NEVER USED [place] [facility] [place] [facility] May 27, 2017 11:01 AM LIFETIME NON-TOBACCO USER [place] [facility] [place] [facility] May 20, 2016 10:51 AM LIFETIME NON-TOBACCO USER [place] [facility] [place] [facility] May 03, 2015 01:13 PM LIFETIME NON-TOBACCO USER [place] [facility] [place] [facility] Advance Directives: All historical and [...] DIRECTIVE MIGDALIA MILES [place] [facility] [place] [facility] Apr 14, 2019 ADVANCE DIRECTIVE RAFAL BULLARD [place] C [facility] [place] [facility] Encounter Notes: All associated encounter notes This section contains the clinical notes associated to the Encounter. Date/Time Encounter Note(s) Provider Source Aug 11, 2023 12:00 AM NONVA CONSULT: LOCAL TITLE: COMMUNITY CARE-CONSULT RESULT NOTE STANDARD TITLE: NONVA CONSULT DATE OF NOTE: AUG 11, 2023 ENTRY DATE: JAN 11, 2024@13:19:46 AUTHOR: JA JACKSON EXP COSIGNER: URGENCY: STATUS: COMPLETED VistA Imaging - Scanned Document SCANNED DOCUMENT SIGNATURE NOT REQUIRED Electronically Filed: 01/11/2024 by: JA JACKSON LICENSED PRACTICAL NURSE JA JACKSON [place] [facility]
--- OUTSIDE RECORDS SUMMARY | 2024-02-16 09:15 | XMS_ITS | Encounter Summary ---
Author Name Department [place] Organization [place] Address [address] [place] [address] Care Team Providers Care Precision Assembler Bench Name Role Phone SUBHA VELAZQUEZ Primary Care [...] GREGORY DIOP Sep 15, 2011 GREGORY PUGA [id number] [phone] PAULA FENG PATIENT [facility] MEDICARE SUPPLEMEN [facility] [employer] [employer] [facility] Aug 09, 2017 [id number] PAULA FENG PATIENT [facility] MEDICARE SUPPLEMEN [facility] Aug 09, 2017 [id number] [id number] PAULA FENG PATIENT MEDICARE (WNR) MEDICARE (M) PART A Nov 10, 2019 PART A [id number] PAULA FENG PATIENT MEDICARE (WNR) MEDICARE (M) PART B Apr 09, 2010 PART B [id number] PAULA FENG PATIENT MEDICARE (WNR) MEDICARE (M) PART B Apr 09, 2010 PART B [id number] PAULA FENG PATIENT MEDICARE (WNR) MEDICARE (M) PART B Apr 09, 2010 PART B [id number] [phone] PAULA FENG PATIENT MEDICARE (WNR) MEDICARE (M) PART A Nov 09, 2009 PART A [id number] PAULA FENG PATIENT MEDICARE (WNR) MEDICARE (M) PART A Nov 09, 2009 PART A [id number] PAULA FENG PATIENT Selected Encounter This section includes the information on record at [place] for the Encounter. Date/Time Encounter Type Encounter Description Reason Provider Source Dec 15, 2023 01:00 PM PSYTX W PT 45 MINUTES [facility] - IND ICD-10-CM F43.10 Post-traumatic stress disorder, unspecified NATHAN KIRK Mikhail Encounter Template Text not used by [place] Assessments - Encounter Diagnoses This section includes the primary and secondary diagnoses documented for the Encounter. Date/Time Primary/Secondary Diagnosis Diagnosis Name Provider Source Dec 18, 2023 06:41 PM PRIMARY Post-traumatic stress disorder, unspecified [facility]ATHAN KIRK [facility] Plan of Treatment: Future Appointments [...] 29, 2023 04:00 PM [facility] Jan 05, 2024 04:00 PM [facility] [place] [facility] Jan 26, 2024 04:00 PM [facility] Feb 09, 2024 04:00 PM [facility] Feb 16, 2024 09:00 AM AMBULATORY - MEDICINE [place] [facility] [place] [facility] Feb 19, 2024 01:00 PM AMBULATORY - PSYCHIATRY [place] [facility] [place] [facility] Feb 23, 2024 04:00 PM AMBULATORY - PSYCHIATRY [place] [facility] [place] [facility] Mar 01, 2024 04:00 PM AMBULATORY - PSYCHIATRY [place] [facility] [place] [facility] Mar 29, 2024 09:00 AM AMBULATORY - MEDICINE [place] [facility] Active, Pending, and Scheduled Orders This section [...] AM Consult Order COMMUNITY CARE-DENTAL GENERAL Cons Rubber Goods Supervisor's Choice [facility] [place] [facility] Jan 20, 2024 12:12 PM Consult Order COMMUNITY CARE-UROLOGY Cons Rubber Goods Supervisor's Choice [facility] Social History: Smoking Status (Most current) and [...] 19, 2023 01:00 PM VA-TOBACCO NEVER USED [facility] Tobacco Use History This section includes a history of the smoking, or tobacco-related health factors, that were collected on or before the date of the Encounter. The data comes from the [place] facility where the Encounter took place. Date/Time Smoking Status/Tobacco Use Comment Gisele accynthia June 17, 2022 01:00 PM VA-TOBACCO NEVER USED [place] [facility] [place] [facility] Jul 16, 2021 01:00 PM VA-TOBACCO NEVER USED [facility] [place] [facility] July 03, 2020 01:00 PM VA-TOBACCO NEVER USED [place] [facility] [place] [facility] Jul 11, 2019 02:57 PM VA-TOBACCO NEVER USED [place] [facility] [place] [facility] Jan 14, 2019 08:50 AM VA-TOBACCO NEVER USED [place] [facility] [facility] Mar 04, 2018 01:20 PM VA-TOBACCO NEVER USED [place] [facility] [place] [facility] May 27, 2017 11:01 AM LIFETIME NON-TOBACCO USER [place] [facility] [facility] May 20, 2016 10:51 AM LIFETIME NON-TOBACCO USER [place] [facility] [facility] May 03, 2015 01:13 PM LIFETIME NON-TOBACCO USER [place] [facility] [place] [facility] Advance Directives: All historical and current Section [...] DIRECTIVE MIGDALIA MILES [place] [facility] [facility] Apr 14, 2019 ADVANCE DIRECTIVE RAFAL BULLARD [place] [facility] [place] [facility] Encounter Notes: All associated encounter notes This section contains the clinical notes associated to the Encounter. Date/Time Encounter Note(s) Provider Source Dec 15, 2023 01:12 PM MENTAL HEALTH DIAG NOSTIC STUDY NOTE: LOCAL TITLE: MENTAL HEALTH DIAGNOSTIC STUDY STANDARD TITLE: MENTAL HEALTH DIAGNOSTIC STUDY NOTE DATE OF NOTE: DEC 15, 2023@13:12:02 ENTRY DATE: DEC 15, 2023@13:12:02 AUTHOR: NATHAN KIRK EXP COSIGNER: URGENCY: STATUS: COMPLETED These assessments were completed by PRASANTH FENG via provider direct entry on 12/15/2023 1:11:09 PM. PTSD CHECKLIST (PCL-5) - WEEKLY Patient reported being bothered by the following over the past week: 1. Disturbing memories: Not at all 2. Disturbing dreams: A little bit 3. [...] concentrating: A little bit 20. Trouble sleeping: Quite a bit PCL-5 total score = 10 This [...] PCL-5 Weekly Total Score (past 180 days): 12/15/2023 10 12/08/2023 9 11/17/2023 4 11/03/2023 10 10/27/2023 8 10/20/2023 9 09/29/2023 7 09/15/2023 4 09/01/2023 7 08/11/2023 9 06/30/2023 10 /rosio/ NATHAN KIRK, Ph.D Clinical Psychologist Signed: 12/16/2023 10:20 YELENACAMERONNATHAN [facility] [facility] [place] [facility] Dec 15, 2023 01:01 PM TELEHEALTH NOTE: LOCAL TITLE: [place] VIDEO CONNECT PSYCHOLOGY NOTE STANDARD TITLE: TELEHEALTH NOTE DATE OF NOTE: DEC 15, 2023@13:01 ENTRY DATE: DEC 15, 2023@13:01:46 AUTHOR: NATHAN KIRK EXP COSIGNER: URGENCY: STATUS: COMPLETED A Video Connect (VVC) Standard Documentation VVC Clinician Resources Only: E911 (Emergency Call Relay Center): [phone] [employer] Crisis Line - 9[address] press #[address] [facility] Suicide Coordinator [phone], Ext. [phone]; Back-up Ext. [phone] [place] Police, [place]UA [phone] Introduction: Visit is being conducted by [place] [id number]. identified with 2 identifiers: [X] Full Name [ ] Date of [ ] [place] ID Card [X] Visual Recognition Emergency Plan: Callands confirmed and/or provided the following information in case of emergency or technology failure. PATIENT PHONE - PHONE NUMBER [CELLULAR] - Is patient phone number correct, if not, enter below: Callands's phone number: PRASANTH Gael JANET [address], [place], [address] 's present location and address for appointment: [address] [place] [address]. [place] [address] 's emergency contact name and phone number: Layla Feng Callands reported that location is private and safe: Yes Informed Consent: informed of the risks and benefits of Telehealth video care. Callands has the right to refuse video services. If refuses video visit, a [id number] visit will be scheduled. 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 Provided [...] and review of the PCL-5 (Score: 10). Session focused on current medical issues, marital challenges and family dynamics, current activities, including spending time with his adult children and grandchildren, upcoming visit for Thanksgiving, taking care of and playing with his new puppy, Silvestre , and plans to travel to his cabin in [place]. The remainder of the session focused on coping skills. INTERVENTIONS: Reflective listening and support, revisited effective communication skills, ways to connect, focus on the things he can control, engage in meaningful activities, increase outside and [...] 4:00pm /fay KIRK, Ph.D Clinical Psychologist Signed: 12/18/2023 18:41 NATHAN KIRK [place] [facility]
--- OUTSIDE RECORDS SUMMARY | 2024-02-16 09:15 | XMS_ITS | Encounter Summary ---
Author Name Department of [place] Organization [place] Address [address] [place] [address] Care Team Providers Care Anesthesia Assistant Name Role Phone SUBHA VELAZQUEZ Primary Care [...] GREGORY DIOP Sep 15, 2011 GREGORY PUGA [id number] [phone] PAULA FENG PATIENT [facility] [place] MEDICARE SUPPLEMEN [employer] [employer] Aug 09, 2017 [id number] PAULA FENG PATIENT [facility] [place] MEDICARE SUPPLEMEN [place] [facility] AGENC Y SUPP PL Aug 09, 2017 [id number] PAULA FENG PATIENT MEDICARE (WNR) MEDICARE (M) PART A Nov 10, 2019 PART A [id number] PAULA FENG PATIENT MEDICARE (WNR) MEDICARE (M) PART B Apr 09, 2010 PART B [id number] GR59 PAULA FENG PATIENT MEDICARE (WNR) MEDICARE (M) PART B Apr 09, 2010 PART B [id number] PAULA FENG PATIENT MEDICARE (WNR) MEDICARE (M) PART B Apr 09, 2010 PART B [id number] [phone] PAULA FENG PATIENT MEDICARE (WNR) MEDICARE (M) PART A Nov 09, 2009 PART A [id number] PAULA FENG PATIENT MEDICARE (WNR) MEDICARE (M) PART A Nov 09, 2009 PART A [id number] [phone] PAULA FENG PATIENT Selected Encounter This section includes the information on record at [place] for the Encounter. Date/Time Encounter Type Encounter Description Reason Provider Source Jan 05, 2024 04:00 PM PSYTX W PT 30 MINUTES MENTAL [facility] CLINIC - IND ICD-10-CM F43.10 Post-traumatic stress disorder, unspecified NATHAN KIRK Mikhail Encounter Template Text not used by [place] Assessments - Encounter Diagnoses This section includes the primary and secondary diagnoses documented for the Encounter. Date/Time Primary/Secondary Diagnosis Diagnosis Name Provider Source Jan 05, 2024 08:39 PM PRIMARY Post-traumatic stress disorder, unspecified [facility]ATHAN KIRK [facility] Plan [...] 26, 2024 04:00 PM AMBULATORY - PSYCHIATRY [place] [facility] [place] [facility] Feb 09, 2024 04:00 PM AMBULATORY - PSYCHIATRY [place] [facility] [place] [facility] Feb 16, 2024 09:00 AM AMBULATORY - MEDICINE [facility] [facility] Feb 19, 2024 01:00 PM AMBULATORY - PSYCHIATRY [place] [facility] [place] [facility] Feb 23, 2024 04:00 PM AMBULATORY - PSYCHIATRY [place] [facility] [place] [facility] Mar 01, 2024 04:00 PM AMBULATORY - PSYCHIATRY [place] [facility] [place] [facility] Mar 29, 2024 09:00 AM AMBULATORY - MEDICINE [place] [facility] [place] [facility] Active, Pending, and Scheduled Orders This section includes a listing of several types of active, pending, and scheduled orders, including clinic medications orders, diagnostic test orders, procedure orders and consult orders; where the start date of the order is 45 days before the date of the Encounter or 45 days after the date of theEncounter. The data comes from all [place] treatment facilities. Test Date/Time Test Type Test Details Facility Name Dec 23, 2023 08:28 AM Consult Order COMMUNITY CARE-DENTAL GENERAL Cons Industrial Training Specialist's Choice [place] [facility] [place] [facility] Jan 20, 2024 12:12 PM Consult Order COMMUNITY CARE-UROLOGY Cons Industrial Training Specialist's Choice [facility] Social History: Smoking Status (Most [...] PM VA-TOBACCO NEVER USED [facility] Tobacco Use History This section includes a history of the smoking, or tobacco-related health factors, that were collected on or before the date of the Encounter. The data comes from the [place] facility where the Encounter took place. Date/Time Smoking Status/Tobacco Use Comment F acility June 17, 2022 01:00 PM VA-TOBACCO NEVER USED [place] [facility] [facility] Jul 16, 2021 01:00 PM VA-TOBACCO NEVER USED [facility] [place] [facility] July 03, 2020 01:00 PM VA-TOBACCO NEVER USED [facility] [place] [facility] Jul 11, 2019 02:57 PM VA-TOBACCO NEVER USED [facility] [place] [facility] Jan 14, 2019 08:50 AM VA-TOBACCO NEVER USED [place] [facility] [place] [facility] Mar 04, 2018 01:20 PM VA-TOBACCO NEVER USED [facility] [place] [facility] May 27, 2017 11:01 AM LIFETIME NON-TOBACCO USER [facility] [facility] May 20, 2016 10:51 AM LIFETIME NON-TOBACCO USER [place] [facility] [place] [facility] May 03, 2015 01:13 PM LIFETIME NON-TOBACCO USER [facility] Advance Directives: All historical and [...] DIRECTIVE MIGDALIA MILES [place] [facility] [place] [facility] Apr 14, 2019 ADVANCE DIRECTIVE RAFAL BULLARD [facility] Encounter Notes: All associated encounter notes This section contains the clinical notes associated to the Encounter. Date/Time Encounter Note(s) Provider Source Jan 05, 2024 04:02 PM TELEHEALTH NOTE: LOCAL TITLE: [place] VIDEO CONNECT PSYCHOLOGY NOTE STANDARD TITLE: TELEHEALTH NOTE DATE OF NOTE: JAN 05, 2024@16:02 ENTRY DATE: JAN 05, 2024@16:02:53 AUTHOR: NATHAN KIRK EXP COSIGNER: URGENCY: STATUS: COMPLETED A Video Connect (VVC) Standard Documentation VVC Clinician Resources Only: E911 (Emergency Call Relay Center): [phone] [employer] Crisis Line - 988 then press #1. [facility] Suicide Coordinator [phone], Ext. [phone]; Back-up Ext. [phone] TR[address] [place] [phone] Introduction: Visit is being conducted by [place] Video Connect. Castaner identified with 2 identifiers: [X] Full Name [ ] Date of [ ] VA ID Card [X] Visual Recognition Emergency Plan: Castaner confirmed and/or provided the following information in case of emergency or technology failure. PATIENT PHONE - PHONE NUMBER [CELLULAR] - Is patient phone number correct, if not, enter below: 's phone number: PRASANTH FENG [address] [place], [place], [address] Castaner's present location and address for appointment: [address] [place] [address] 's emergency contact name and phone number: Layla Feng Castaner reported that location is private and safe: Yes Informed Consent: Castaner informed of the risks and benefits of Telehealth video care. has the right to refuse video services. If refuses video visit, a [id number] visit will be scheduled. 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 Provided Suicide Prevention Hotline number, and other contact numbers as necessary. VISIT DURATION: 27 Minutes DIAGNOSIS: PTSD [employer] STATEMENT OF GOALS/CONCERNS: Reduce irritability, avoidance, work on current challenges (including medical issues, particularly, cancer diagnosis), relationship issues, increase. meaningful activities and remain connected with people he is close to. SESSION FOCUS: Session focused on increasing 's activities outside the home, and continuing to work on finding balance in his life, including family time, social events, spending time in his cabin in [place], and having fun with friends. reported that he spends so much of his time working on projects, that he has forgotten how to have fun. Revisited the importance and benefits of having balance in his life on his overall health and well-being. Castaner agreed and identified some things he will do during the holiday, such as, visiting his daughter, enjoying day with his , going to [place] for a week, and spending time with his dog. Will revisit next session. INTERVENTIONS: Reflective listening and support, revisited finding balance, and what that looks like, engage in meaningful activities, increase outside [...] PLAN FOR FOLLOW-UP: Next session planned for: 01/12/24 at 4:00pm /rosio/ NATHAN KIRK, Ph.D Clinical Psychologist Signed: 01/05/2024 20:39 NATHAN KIRK [facility]
--- OUTSIDE RECORDS SUMMARY | 2024-02-16 09:15 | XMS_ITS | Encounter Summary ---
Author Name [facility] [place] Address [address] [place] [address] Care Team Providers Care Property Custodian Name Role Phone SUBHA VELAZQUEZ Primary Care [...] GREGORY DIOP Sep 15, 2011 GREGORY PUGA [id number] PAULA GONZALES PATIENT HEALTH [place] MEDICARE SUPPLEMEN [facility] Aug 09, 2017 [id number] [phone] PAULA GONZALES PATIENT HEALTH [place]RE[place] MEDICARE SUPPLEMEN [facility] SUPP PL Aug 09, 2017 [id number] PAULA GONZALES PATIENT MEDICARE (WNR) MEDICARE (M) PART A Nov 10, 2019 PART A [id number] PAULA GONZALES PATIENT MEDICARE (WNR) MEDICARE (M) PART B Apr 09, 2010 PART B [id number] PAULA GONZALES PATIENT MEDICARE (WNR) MEDICARE (M) PART B Apr 09, 2010 PART B [id number] PAULA GONZALES PATIENT MEDICARE (WNR) MEDICARE (M) PART B Apr 09, 2010 PART B [id number] PAULA GONZALES PATIENT MEDICARE (WNR) MEDICARE (M) PART A Nov 09, 2009 PART A [id number] PAULA GONZALES PATIENT MEDICARE (WNR) MEDICARE (M) PART A Nov 09, 2009 PART A [id number] [phone] PAULA GONZALES PATIENT Selected Encounter This section includes the information on record at [place] for the Encounter. Date/Time Encounter Type Encounter Description Reason Pro vider Source Jan 20, 2024 10:29 AM Outpatient Encounter PRIMARY CARE/MEDICINE IHE Encounter Template Text not used by [place] Plan of Treatment: Future Appointments (+ 6 months) and Future Tests (+/- 45 days) The Plan of Treatment section includes future care activities for the patient from all [place] [facility] This section includes future appointments and future [...] 26, 2024 04:00 PM AMBULATORY - PSYCHIATRY [place] [facility] Feb 09, 2024 04:00 PM AMBULATORY - PSYCHIATRY [place] [facility] Feb 16, 2024 09:00 AM AMBULATORY - MEDICINE [facility] Feb 19, 2024 01:00 PM AMBULATORY - PSYCHIATRY [place] [facility] Feb 23, 2024 04:00 PM AMBULATORY - PSYCHIATRY [place] [facility] Mar 01, 2024 04:00 PM AMBULATORY - PSYCHIATRY [place] [facility] Mar 29, 2024 09:00 AM AMBULATORY - MEDICINE [facility] Active, Pending, and [...] AM Consult Order COMMUNITY CARE-DENTAL GENERAL Cons Certified Medical Biller's Choice [place] [facility] Jan 20, 2024 12:12 PM Consult Order COMMUNITY [facility]-UROLOGY Cons Certified Medical Biller's Choice [place] [facility] Social History: [...] VA-TOBACCO NEVER USED [place] [facility] Tobacco Use History This section [...] 03, 2015 01:13 PM LIFETIME NON-TOBACCO USER [facility] Advance Directives: All historical and current Section [...] Nov 08, 2019 ADVANCE DIRECTIVE MIGDALIA MILES [facility] Apr 14, 2019 ADVANCE DIRECTIVE RAFAL BULLARD [facility] Encounter Notes: All associated encounter notes This section contains the clinical notes associated to the Encounter. Date/Time Encounter Note(s) Provider Source Jan 20, 2024 10:31 AM ADMINISTRATIVE NOT E: LOCAL TITLE: FAX/MAIL RECEIVED STANDARD TITLE: ADMINISTRATIVE NOTE DATE OF NOTE: JAN 20, 2024@10:31 ENTRY DATE: JAN 20, 2024@10:32:04 AUTHOR: ALANA RUBIO EXP COSIGNER: URGENCY: STATUS: COMPLETED Document Received On: Jan Document Type: Other: REFERRAL REQUEST Date of Service: Jan Facility and or Provider: [facility] Contact Information: PCP of Record: SUBHA VELAZQUEZ Next visit with PCP: 01/26/2024 16:00 CWM/NO/VVC/MHC/PSYLG 12 03/29/2024 09:00 CWM/NO/PACT EIGHT 10/04/2024 08:00 CWM/NO/OPTOMETRY/SHAI 2024 09:00 NHM/CVT/SLEEP STDY/VACT/P Primary Care May keep copies of this document for up to 14 days and send the original for scanning. Received referral request, with scheduled apt on 02/16/24. consult placed, held for caleb. /rosio/ ALANA RUBIO LPN License Practical Nurse Signed: 01/20/2024 10:33 ALANA RUBIO [facility]
--- OUTSIDE RECORDS SUMMARY | 2024-02-16 09:15 | XMS_ITS | Encounter Summary ---
Author Name [facility] [place] Address [address] [place] [address] Care Team Providers Care Supply Tech Name Role Phone SUBHA VELAZQUEZ Primary [...] GREGORY DIOP Sep 15, 2011 GREGORY PUGA [id number] [phone] APULA GONZALES PATIENT HEALTH [place] MEDICARE SUPPLEMEN [employer] Aug 09, 2017 [id number] PAULA GONZALES PATIENT HEALTH [place] MEDICARE SUPPLEMEN [facility] [employer] [facility] [facility] SUPP PL Aug 09, 2017 [id number] [phone] PAULA GONZALES PATIENT MEDICARE (WNR) MEDICARE (M) PART A Nov 10, 2019 PART A [id number] PAULA GONZALES PATIENT MEDICARE (WNR) MEDICARE (M) PART B Apr 09, 2010 PART B [id number] PAULA GONZALES PATIENT MEDICARE (WNR) MEDICARE (M) PART B Apr 09, 2010 PART B [id number] PAULA GONZALES PATIENT MEDICARE (WNR) MEDICARE (M) PART B Apr 09, 2010 PART B [id number] PAULA GONZALES PATIENT MEDICARE (WNR) MEDICARE (M) PART A Nov 09, 2009 PART A [id number] PAULA GONZALES PATIENT MEDICARE (WNR) MEDICARE (M) PART A Nov 09, 2009 PART A [id number] PAULA GONZALES PATIENT Selected Encounter This section includes the information on record at [place] for the Encounter. Date/Time Encounter Type Encounter Description Reason Provider Source Jan 04, 2024 02:08 PM POS AIRWAY PRESSURE CPAP TELEPHONE/MEDICINE ICD-10-CM G47.39 Other sleep apnea PHILLIP GILL [facility] Encounter Template Text not used by [place] Assessments - Encounter Diagnoses This section includes the primary and secondary diagnoses documented for the Encounter. Date/Time Primary/Secondary Diagnosis Diagnosis Name Provider Source Jan 04, 2024 02:08 PM PRIMARY Other sleep apnea [facility] [place] [facility] Plan of Treatment: Future Appointments (+ 6 months) and Future Tests (+/- 45 days) The Plan of Treatment section includes future care activities for the patient from all [place] treatmentfacilities. This section includes future appointments and future orders which are active, pending or scheduled. Future Appointments This section includes appointments that were scheduled to occur 6 months from the date of the Encounter, up to a maximum of 20 appointments. The data comes from all [place] treatment facilities. Appointment Date/Time Appointment Type Appointme nt Facility Name Jan 05, 2024 04:00 PM AMBULATORY - PSYCHIATRY [place] [facility] [place] [facility] Jan 26, 2024 04:00 PM AMBULATORY - PSYCHIATRY [place] [facility] [place] [facility] Feb 09, 2024 04:00 PM AMBULATORY - PSYCHIATRY [place] [facility] [place] [facility] Feb 16, 2024 09:00 AM AMBULATORY - MEDICINE [place] C [facility] [place] [facility] Feb 19, 2024 01:00 PM AMBULATORY - PSYCHIATRY [place] [facility] [place] [facility] Feb 23, 2024 04:00 PM AMBULATORY - PSYCHIATRY [place] [facility] [place] [facility] Mar 01, 2024 04:00 PM AMBULATORY - PSYCHIATRY [place] [facility] [place] [facility] Mar 29, 2024 09:00 AM AMBULATORY - MEDICINE [place] C [facility] [place] [facility] Active, Pending, and Scheduled Orders This section includes a listing of several types of active, pending, and scheduled orders, including clinic medications orders, diagnostic test orders, procedure orders and consult orders; where the start date of the order is 45 days before the date of the Encounter or 45 days after the date of theEncounter. The data comes from all [place] treatment facilities. Test Date/Time Test Type Test Details Facility Name Dec 23, 2023 08:28 AM Consult Order COMMUNITY CARE-DENTAL GENERAL Cons Dough Mixer Helper's Choice [place] [facility] [place] [facility] Jan 20, 2024 12:12 PM Consult Order COMMUNITY CARE-UROLOGY Cons Dough Mixer Helper's Choice [place] [facility] [place] [facility] Social History: Smoking Status (Most current) [...] 19, 2023 01:00 PM VA-TOBACCO NEVER USED [place] [facility] [place] [facility] Tobacco Use History This section includes a history of the smoking, or tobacco-related health factors, that were collected on or before the date of the Encounter. The data comes from the [place] facility where the Encounter took place. Date/Time Smoking Status/Tobacco Use Comment F acility June 17, 2022 01:00 PM VA-TOBACCO NEVER USED [place] [facility] [place] [facility] Jul 16, 2021 01:00 PM VA-TOBACCO NEVER USED [place] [facility] [place] [facility] July 03, 2020 01:00 PM VA-TOBACCO NEVER USED [place] [facility] [place] [facility] Jul 11, 2019 02:57 PM VA-TOBACCO NEVER USED [place] [facility] [place] [facility] Jan 14, 2019 08:50 AM VA-TOBACCO NEVER USED [place] [facility] [place] [facility] Mar 04, 2018 01:20 PM VA-TOBACCO NEVER USED [place] [facility] [place] [facility] May 27, 2017 11:01 AM LIFETIME NON-TOBACCO USER [place] [facility] [place] [facility] May 20, 2016 10:51 AM LIFETIME NON-TOBACCO USER [place] [facility] [place] [facility] May 03, 2015 01:13 PM LIFETIME NON-TOBACCO USER [place] [facility] [place] [facility] Advance Directives: All historical and current [...] 08, 2019 ADVANCE DIRECTIVE MIGDALIA MILES [place] [facility] [place] [facility] Apr 14, 2019 ADVANCE DIRECTIVE RAFAL BULLARD [facility] Encounter Notes: All associated encounter notes This section contains the clinical notes associated to the Encounter. Date/Time Encounter Note(s) Provider Source Jan 04, 2024 02:08 PM SLEEP MEDICINE NOT E: LOCAL TITLE: CPAP CLINIC NOTE STANDARD TITLE: SLEEP MEDICINE NOTE DATE OF NOTE: JAN 04, 2024@14:08 ENTRY DATE: JAN 04, 2024@14:08:50 AUTHOR: PHILLIP GILL EXP COSIGNER: URGENCY: STATUS: COMPLETED [place], diagnosed with sleep apnea, contacted clinic for a PAP supplies. is compliant and supplies will be ordered from [facility]. requested medium cushions for his nasal pillows. [place] called requesting the following CPAP supplies to be mailed to his home address which has been confirmed as well as his primary phone: 12 medium sized pillows /es/ PHILLIP GILL CRT RESPIRATORY THERAPIST Signed: 01/04/2024 14:10 PHILLIP GILL
--- OUTSIDE RECORDS SUMMARY | 2024-02-16 09:15 | XMS_ITS | Encounter Summary ---
Author Name [facility] [place] [facility] [place] Organization [facility] [place] Address [address] [place] [address] Care Team Providers Care Butadiene Converter Utility Operator Name Role Phone SUBHA VELAZQUEZ Primary [...] GREGORY DIOP Sep 15, 2011 GREGORY PUGA [id number] [phone] PAULA GONZALES PATIENT HEALTH [place] MEDICARE SUPPLEMEN [employer] Aug 09, 2017 [id number] PAULA GONZALES PATIENT HEALTH [place] MEDICARE SUPPLEMEN [employer] SUPP PL Aug 09, 2017 [id number] PAULA GONZALES PATIENT MEDICARE (WNR) MEDICARE (M) PART A Nov 10, 2019 PART A [id number] PAULA GONZALES PATIENT MEDICARE (WNR) MEDICARE (M) PART B Apr 09, 2010 PART B [id number] PAULA GONZALES PATIENT MEDICARE (WNR) MEDICARE (M) PART B Apr 09, 2010 PART B [id number] [phone] PAULA GONZALES PATIENT MEDICARE (WNR) MEDICARE (M) PART B Apr 09, 2010 PART B [id number] [phone] PAULA GONZALES PATIENT MEDICARE (WNR) MEDICARE (M) PART A Nov 09, 2009 PART A [id number] PAULA GONZALES PATIENT MEDICARE (WNR) MEDICARE (M) PART A Nov 09, 2009 PART A [id number] [phone] PAULA GONZALES PATIENT Selected Encounter This section includes the information on record at [place] for the Encounter. Date/Time Encounter Type Encounter Description Reason Pro vider Source Dec 14, 2023 09:25 AM Outpatient Encounter TELEPHONE PRIMARY CARE IHE Encounter Template Text not used by [place] Plan of Treatment: Future Appointments (+ 6 months) and Future Tests (+/- 45 days) The Plan of Treatment section includes future care activities for the patient from all [place] [facility] This section includes future appointments and future orders which are active, pending or scheduled. Future Appointments This section includes appointments that were scheduled to occur 6 months from the date of the Encounter, up to a maximum of 20 appointments. The data comes from all [place] treatment facilities. Appointment Date/Time Appointment Type Appointme nt Facility Name Dec 15, 2023 09:00 AM AMBULATORY - NONE [place] [facility] [place] [facility] Dec 15, 2023 01:00 PM AMBULATORY - PSYCHIATRY [place] [facility] [place] [facility] Dec 29, 2023 04:00 PM AMBULATORY - PSYCHIATRY [place] [facility] [place] [facility] Jan 05, 2024 04:00 PM AMBULATORY - PSYCHIATRY [place] [facility] [place] [facility] Jan 26, 2024 04:00 PM AMBULATORY - PSYCHIATRY [place] [facility] [place] [facility] Feb 09, 2024 04:00 PM AMBULATORY - PSYCHIATRY [place] [facility] [place] [facility] Feb 16, 2024 09:00 AM AMBULATORY - MEDICINE [place] [facility] [place] [facility] Feb 19, 2024 01:00 PM AMBULATORY - PSYCHIATRY [place] [facility] [place] [facility] Feb 23, 2024 04:00 PM AMBULATORY - PSYCHIATRY [place] [facility] [place] [facility] Mar 01, 2024 04:00 PM AMBULATORY - PSYCHIATRY [place] [facility] [place] [facility] Mar 29, 2024 09:00 AM AMBULATORY - MEDICINE [place] C [facility] [place] [facility] Active, Pending, and Scheduled Orders This section includes a listing of several types of active, pending, and scheduled orders, including clinic medications orders, diagnostic test orders, procedure orders and consult orders; where the start date of the order is 45 days before the date of the Encounter or 45 days after the date of theEncounter. The data comes from all [place] treatment facilities. Test Date/Time Test Type Test Details Facility Name Dec 23, 2023 08:28 AM Consult Order COMMUNITY CARE-DENTAL GENERAL Cons Social Service Manager's Choice [place] [facility] [place] [facility] Jan 20, 2024 12:12 PM Consult Order COMMUNITY CARE-UROLOGY Cons Social Service Manager's Choice [facility] Social History: Smoking Status (Most current) and Tobacco Use (All prior to encounter date) This section includes the most current, and the historical, smoking and tobacco- related health factors from the [place] facility where the Encounter took place. Current Smoking Status This section includes the most current smoking, or tobacco-related health factor, from the [place] facility where the Encounter took place. Date/Time Current Smoking Status Comment Facil ity May 19, 2023 01:00 PM [place]-TOBACCO NEVER USED [place] [facility] Tobacco Use History This section includes a history of the smoking, or tobacco-related health factors, that were collected on or before the date of the Encounter. The data comes from the [place] facility where the Encounter took place. Date/Time Smoking Status/Tobacco Use Comment F acility June 17, 2022 01:00 PM VA-TOBACCO NEVER USED [place] [facility] [place] [facility] Jul 16, 2021 01:00 PM VA-TOBACCO NEVER USED [facility] [place] [facility] July 03, 2020 01:00 PM VA-TOBACCO NEVER USED [facility] [place] [facility] Jul 11, 2019 02:57 PM VA-TOBACCO NEVER USED [place] [facility] [place] [facility] Jan 14, 2019 08:50 AM VA-TOBACCO NEVER USED [place] [facility] [place] [facility] Mar 04, 2018 01:20 PM VA-TOBACCO NEVER USED [facility] [place] [facility] May 27, 2017 11:01 AM LIFETIME NON-TOBACCO USER [facility] [place] [facility] May 20, 2016 10:51 AM LIFETIME NON-TOBACCO USER [place] [facility] [place] [facility] May 03, 2015 01:13 PM LIFETIME NON-TOBACCO USER [place] [facility] Advance Directives: All historical and [...] 08, 2019 ADVANCE DIRECTIVE MIGDALIA MILES [place] [facility] Apr 14, 2019 ADVANCE DIRECTIVE RAFAL BULLARD [place] [facility] Encounter Notes: All associated encounter notes This section contains the clinical notes associated to the Encounter. Date/Time Encounter Note(s) Provider Source Dec 14, 2023 09:27 AM TELEPHONE ENCOUNTE R NOTE: LOCAL TITLE: TELEPHONE NOTE/SPECIALTY CLINIC STANDARD TITLE: TELEPHONE ENCOUNTER NOTE DATE OF NOTE: DEC 14, 2023@09:27 ENTRY DATE: DEC 14, 2023@09:27:09 AUTHOR: SHELIA MALDONADO EXP COSIGNER: URGENCY: STATUS: COMPLETED [place] calls stating that he would like to speak with Patrice Jean - his CPAP machine (Res Med Air Curve 10) is having issues. Last Thursday12/11/2023 he turned it on and it was the loudest its ever been sounding like a vaccum. He would shut it on and off- eventually it took about 3 seconds to turn off. hasnt been able to use it since then and he doesnt feel comfortable not being able to use it. Would like a call back regarding this on his primary phone which has been confirmed. /rosio/ SHELIA MALDONADO ADVANCED APPEALS RN Signed: 12/14/2023 09:29 Receipt Acknowledged By: 12/15/2023 12:08 /es/ SHARRON BROTHERS,STONE CIRCULAR SAWYER RESPIRATORY THERAPIST 12/14/2023 11:03 /es/ PATRICE SRIVASTAVA RESPIRATORY THERAPIST 12/14/2023 10:14 /es/ PHILLIP GILL, FOREST ECOLOGIST RESPIRATORY THERAPIST SHELIA MALDONADO [facility]
--- OUTSIDE RECORDS SUMMARY | 2024-02-16 09:16 | XMS_ITS | Encounter Summary ---
Author Name [facility] [place] Organization [facility] [place] Address [address] [place] [address] Care Team Providers Care Career Development Consultant Name Role Phone SUBHA VELAZQUEZ Primary Care [...] GREGORY DIOP Sep 15, 2011 GREGORY PUGA [id number] [phone] PAULA FENG PATIENT [facility] MEDIC[facility] [facility] Aug 09, 2017 [id number] PAULA FENG PATIENT [facility] MEDICARE SUPPLEMEN [facility] SUPP [address] Aug 09, 2017 [id number] PAULA FENG PATIENT MEDICARE (WNR) MEDICARE (M) PART A Nov 10, 2019 PART A [id number] PAULA FEGN PATIENT MEDICARE (WNR) MEDICARE (M) PART B Apr 09, 2010 PART B [id number] PAULA FENG PATIENT MEDICARE (WNR) MEDICARE (M) PART B Apr 09, 2010 PART B [id number] PAULA FENG PATIENT MEDICARE (WNR) MEDICARE (M) PART B Apr 09, 2010 PART B [id number] [phone] PAULA FENG PATIENT MEDICARE (WNR) MEDICARE (M) PART A Nov 09, 2009 PART A [id number] PAULA FENG PATIENT MEDICARE (WNR) MEDICARE (M) PART A Nov 09, 2009 PART A [id number] [phone] PAULA FENG PATIENT Selected Encounter This section includes the information on record at [place] for the Encounter. Date/Time Encounter Type Encounter Description Reason Provider Source Feb 09, 2024 04:00 PM PSYTX W PT 45 [facility]ES [facility] - IND ICD-10-CM F43.10 Post-traumatic stress disorder, unspecified NATHAN KIRK Mikhail Encounter Template Text not used by [place] Assessments - Encounter Diagnoses This section includes the primary and secondary diagnoses documented for the Encounter. Date/Time Primary/Secondary Diagnosis Diagnosis Name Provider Source Feb 12, 2024 10:38 PM PRIMARY Post-traumatic stress disorder, unspecified [facility] Plan of Treatment: Future Appointments (+ 6 months) and Future Tests (+/- 45 days) The Plan of Treatment section includes future care activities for the patient from all [place] treatmentfacilities. This section includes future appointments and future orders which are active, pending or scheduled. Future Appointments This section includes appointments that were scheduled to occur 6 months from the date of the Encounter, up to a maximum of 20 appointments. The data comes from all [place] treatment facilities. Appointment Date/Time Appointment Type Appointme nt Facility Name Feb 16, 2024 09:00 AM AMBULATORY - [facility] Feb 19, 2024 01:00 PM [facility] [place] [facility] Feb 23, 2024 04:00 PM [facility] Mar 01, 2024 04:00 PM [facility] Mar 29, 2024 09:00 AM AMBULATORY - MEDICINE [facility] Active, Pending, and [...] Date/Time Test Type Test Details Facility Name Jan 20, 2024 12:12 PM Consult Order COMMUNITY CARE-UROLOGY Cons Risk Control Director's Choice [place] [facility] [place] [facility] Mar 21, 2024 12:00 AM Laboratory - Chemi stry Order BASIC METABOLIC PANEL (fasting) BLOOD (SST-SERUM) SP [place] [facility] [place] [facility] Mar 21, 2024 12:00 AM Laboratory - Chemi stry Order LIPID PANEL FASTING BLOOD (SST-SERUM) [facility] Social History: Smoking Status (Most current) and Tobacco Use (All prior to encounter date) This section includes the most current, and the historical, smoking and tobacco- related health factors from the [place] facility where the Encounter took place. Current Smoking Status This section includes the most current smoking, or tobacco-related health factor, from the [place] facility where the Encounter took place. Date/Time Current Smoking Status Comment Facil ity May 19, 2023 01:00 PM [facility] Tobacco Use History This section includes a history of the smoking, or tobacco-related health factors, that were collected on or before the date of the Encounter. The data comes from the [place] facility where the Encounter took place. Date/Time Smoking Status/Tobacco Use Comment F acility June 17, 2022 01:00 PM VA-TOBACCO NEVER USED [place] [facility] [place] [facility] Jul 16, 2021 01:00 PM VA-TOBACCO NEVER USED [facility] [place] [facility] July 03, 2020 01:00 PM VA-TOBACCO NEVER USED [facility] [place] [facility] Jul 11, 2019 02:57 PM VA-TOBACCO NEVER USED [place] [facility] [place] [facility] Jan 14, 2019 08:50 AM VA-TOBACCO NEVER USED [place] [facility] [place] [facility] Mar 04, 2018 01:20 PM VA-TOBACCO NEVER USED [facility] [place] [facility] May 27, 2017 11:01 AM LIFETIME NON-TOBACCO USER [facility] [place] [facility] May 20, 2016 10:51 AM LIFETIME NON-TOBACCO USER [place] [facility] [place] [facility] May 03, 2015 01:13 PM LIFETIME NON-TOBACCO USER [facility] Advance Directives: All historical and [...] Nov 08, 2019 ADVANCE DIRECTIVE MIGDALIA MILES [facility] [place] [facility] Apr 14, 2019 ADVANCE DIRECTIVE RAFAL BULLARD AL C [facility] Encounter Notes: All associated encounter notes This section contains the clinical notes associated to the Encounter. Date/Time Encounter Note(s) Provider Source Feb 09, 2024 04:43 PM TELEHEALTH NOTE: LOCAL TITLE: [place] VIDEO CONNECT PSYCHOLOGY NOTE STANDARD TITLE: TELEHEALTH NOTE DATE OF NOTE: FEB 09, 2024@16:43 ENTRY DATE: FEB 09, 2024@16:43:17 AUTHOR: NATHAN KIRK EXP COSIGNER: URGENCY: STATUS: COMPLETED A Video Connect (VVC) Standard Documentation VVC Clinician Resources Only: E911 (Emergency Call Relay Center): [phone] National Veterans Crisis Line - 988 then press #1. SETH Suicide Coordinator [phone], Ext. [phone]; Back-up Ext. [phone] TRES [place] [phone] Introduction: Visit is being conducted by [place] Video Connect. [place] identified with 2 identifiers: [X] Full Name [ ] Date of [ ] VA ID Card [X] Visual Recognition Emergency Plan: [place] confirmed and/or provided the following information in case of emergency or technology failure. PATIENT PHONE - PHONE NUMBER [CELLULAR] - Is patient phone number correct, if not, enter below: 's phone number: PRASANTH FENG [address] [place], [place], [address] 's present location and address for appointment: [address] [place] [address] 's emergency contact name and phone number: Layla Feng reported that location is private and safe: Yes Informed Consent: [place] informed of the risks and benefits of Telehealth video care. [place] has the right to refuse video services. If refuses video visit, a cpso-wr-jyze visit will be scheduled. [place] verbalized consent for this video visit: Yes [place] provided consent for any other persons present [...] court of law and presented to a on site soil evaluator), and [facility] access for active-duty service members. Provided Suicide Prevention Hotline number, and other contact numbers as necessary. VISIT DURATION: 40 Minutes *[place] needed additional time to address current issues: DIAGNOSIS: PTSD [employer] STATEMENT OF GOALS/CONCERNS: Reduce irritability, avoidance, work on current challenges (including medical issues, particularly, cancer diagnosis), relationship issues, increase. meaningful activities and remain connected with people he is close to. SESSION FOCUS: Session focused on recent holidays, family dynamics, marital challenges, and medical issues. [place] shared that he enjoyed spending time with his daughter and her adult children over the hol and that the visit meant a lot to him. The remainder of the time focused on details regarding [place]'s relationship with his , including trust issues around some of her reported behaviors. shared specific events in which his interacted with his adult children in such a way that also impacted their trust with her. [place] stated that she mentioned divorce to her adult daughter and that her daughter spoke with about it. [place] stated that his never said anything like that to him and is concerned that divorce would be financially challenging for them at their age. He stated that he has not spoken with her about it, and has not decided if he wants to address it with her. Will revisit next session. INTERVENTIONS: Reflective listening and support, focusing on the things he can control, revisited finding balance and what that looks like, remain connected with those who are supportive of him, engage in meaningful activities, increase outside and social activities, and self-care. RISK ASSESSMENT: No suicidal/homicidal ideation reported PLAN FOR FOLLOW-UP: Next session planned for: 02/22/23 at 4:00pm /rosio/ NATHAN KIRK, Ph.D Clinical Psychologist Signed: 02/12/2024 22:38 NATHAN KIRK [facility] [place]
--- OUTSIDE RECORDS SUMMARY | 2024-02-16 09:16 | XMS_ITS | Continuity of Care Document ---
Author Organization [facility] Address [address] [place] [id number] Phone Care Team Providers Care Regulatory Intern Name Role Phone Anupam LIVINGSTON FACS RVT [...] E&M Established 10 Mins Ludwin Dsouza Vein Hoahaoism MD SELLERS, [address] [place] [address] Dr Lerner [address] [address], [place], [id number], tel:[phone] CVR - [place] Venous insufficiency (chronic) (peripheral)P ain in right leg Sep-0 3 Anupam LIVINGSTON FACS T GEORGE Salazar. [address] [place] [address], [place], [address], [place]. tel:[phone] Referring Provider: Benny Martinez MD S, [address] [place] [address], [facility]. tel:[phone] Office/Outpt E&M Established 15 Mins Ludwin Dsouza Vein Hoahaoism MD SLELERS, [address] [place] [address] Dr Lerner 1000[facility] 1000, [place], [id number], [place] tel:[phone] [facility]R - [place] Chronic venous hypertension w oth comp of r low extrem 3 Anupam LIVINGSTON FACS T GEORGE Salazar. [address] [place] [address], [place], [address], [place]. tel:[phone] Referring Provider: Benny Mayo, [address] [place] [address], [facility]. 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 [address] [place] [address], [place], [place], [id number], [place]. tel:[phone] Referring Provider: Benny Mayo, [address] [place] [address], [facility]. tel:[phone] [facility], [address] [place] [address] [address], [place], [id number], [place] tel:[phone] CVR - [place] Encntr for f/u exam aft trtmt for cond oth than malig neoplmVaricos e veins of right lower extremities with pain 3 Anupam LIVINGSTON FACS T GEORGE Salazar. [address] [place] [address], [place] [address], [place], [address], [place]. tel:[phone] Referring Provider: Benny Martinez MD S, [address] [place] [address], [address]. 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 [address] [place] [address], [place], [address], [place]. tel:[phone] Referring Provider: Benny Martinez MD S, [address] [place] [address], [address]. 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 [address] [place] [address], [place], [address], [place]. tel:[phone] Referring Provider: Benny Martinez MD S, [address] [place] [address], [address]. tel:[phone] Offic/outpt E&m Estab 5 Min Trial - Telemedicine [place] [facility] MD SELLERS, [address] [place] [address] [address], [place], [id number], [place] tel:[phone] CVR - [place] Chronic venous hypertension w oth comp of r low extrem 3 Anupam Salazar. [address] [place] [address], [place], [address], . tel:[phone] Referring Provider: Benny Martinez MD S, [address] [place] [address], [address]. tel:[phone] Office/Outpt E&M Established 15 Mins [facility], [address] [place] [address] [address], [place], [id number], [place] tel:[phone] CVR - [place] Venous insufficiency (chronic) (peripheral) 3 Anupam Salazar. [address] [place] [address], [place], [address], . tel:[phone] Referring Provider: Benny Martinez MD S, [address] [place] [address], [address]. tel:[phone] [facility], [address] [place] [address] [address], [place], [id number], [place] tel:[phone] CVR - [place] Venous insufficiency (chronic) (peripheral)P ain in right leg 3 Anupam Salazar. [address] [place] [address], [place], [address], [place]. tel:[phone] Referring Provider: Benny Martinez MD S, [address] [place] [address], [address]. tel:[phone] Office/Oupt E&M New Pt 30 Mins [facility], [address] [place] [address] [address], [id number], [place] tel:[phone] CVR - [place] Venous insufficiency (chronic) (peripheral) 3 Anupam Salazar. [address] [address], [place], [address], [place]. tel:[phone] Referring Provider: Benny Martinez MD S, [address] [place] [address], [address]. tel:[phone] [facility], [address], [place], [id number], tel:[phone] [facility] No Information Anupam LIVINGSTON FACS RVT GEORGE Salazar. [address] [address], [place], [address], [place]. tel:[phone] Referring Provider: Benny Martinez MD S, [address] [place] [address], [address]. tel:[phone] Family History Family Member Type Diagnosis Age At Onset No Information Payers Payer name Insurance type Covered democrat ID Missy shi(s) Medicare MONICA WILLARD [id number] [facility] [id number] Social History Type Description Quantity Date Captured [...]
--- OUTSIDE RECORDS SUMMARY | 2024-02-16 09:16 | XMS_ITS | Encounter Summary ---
Author Name [facility] [place] [facility] [place] Address [address] [place] [address] Care Team Providers Care Health Director Name Role Phone SUBHA VELAZQUEZ Primary Care [...] GREGORY DIOP Sep 15, 2011 GREGORY PUGA [id number] PAULA FENG PATIENT [facility] [place] MEDICARE SU[employer]LEMEN [facility] Aug 09, 2017 [id number] PAULA FENG PATIENT [facility] [place] MEDICARE SUPPLEMEN [facility]LE[facility] SUPP [facility] Aug 09, 2017 [id number] [phone] PAULA FENG PATIENT MEDICARE (WNR) MEDICARE (M) PART A Nov 10, 2019 PART A [id number] PAULA FENG PATIENT MEDICARE (WNR) MEDICARE (M) PART B Apr 09, 2010 PART B [id number] PAULA FENG PATIENT MEDICARE (WNR) MEDICARE (M) PART B Apr 09, 2010 PART B [id number] PAULA FENG PATIENT MEDICARE (WNR) MEDICARE (M) PART B Apr 09, 2010 PART B [id number] [phone] PAULA FENG PATIENT MEDICARE (WNR) MEDICARE (M) PART A Nov 09, 2009 PART A [id number] PAULA FENG PATIENT MEDICARE (WNR) MEDICARE (M) PART A Nov 09, 2009 PART A [id number] [phone] PAULA FENG PATIENT Selected Encounter This section includes the information on record at [place] for the Encounter. Date/Time Encounter Type Encounter Description Reason Provider Source Jan 26, 2024 04:00 PM PSYTX W PT 30 MINUTES [facility] - IND ICD-10-CM F43.10 Post-traumatic stress disorder, unspecified NATHAN KIRK Mikhail Encounter Template Text not used by [place] Assessments - Encounter Diagnoses This section includes the primary and secondary diagnoses documented for the Encounter. Date/Time Primary/Secondary Diagnosis Diagnosis Name Provider Source Jan 28, 2024 10:35 PM PRIMARY Post-traumatic stress disorder, unspecified [facility]ATHAN KIRK [facility] Plan of Treatment: Future Appointments [...] Appointment Type Appointme nt Facility Name Feb 09, 2024 04:00 PM AMBULATORY - PSYCHIATRY [place] [facility] [place] [facility] Feb 16, 2024 09:00 AM AMBULATORY - MEDICINE [facility] [place] [facility] Feb 19, 2024 01:00 PM AMBULATORY - PSYCHIATRY [place] [facility] [place] [facility] Feb 23, 2024 04:00 PM AMBULATORY - PSYCHIATRY [place] [facility] [place] [facility] Mar 01, 2024 04:00 PM AMBULATORY - PSYCHIATRY [place] [facility] [place] [facility] Mar 29, 2024 09:00 AM AMBULATORY - MEDICINE PA C [facility] [place] [facility] Active, Pending, and Scheduled Orders This section [...] AM Consult Order COMMUNITY CARE-DENTAL GENERAL Cons [employer] Coach's Choice [facility] [place] [facility] Jan 20, 2024 12:12 PM Consult Order COMMUNITY CARE-UROLOGY Cons [employer] Coach's Choice [facility] [place] [facility] Social History: Smoking Status (Most current) and [...] 19, 2023 01:00 PM VA-TOBACCO NEVER USED [place] [facility] [place] [facility] Tobacco Use History This section includes a history of the smoking, or tobacco-related health factors, that were collected on or before the date of the Encounter. The data comes from the [place] facility where the Encounter took place. Date/Time Smoking Status/Tobacco Use Comment F acility June 17, 2022 01:00 PM VA-TOBACCO NEVER USED [facility] [place] [facility] Jul 16, 2021 01:00 PM VA-TOBACCO NEVER USED [facility] [place] [facility] July 03, 2020 01:00 PM VA-TOBACCO NEVER USED [facility] [place] [facility] Jul 11, 2019 02:57 PM VA-TOBACCO NEVER USED [facility] [place] [facility] Jan 14, 2019 08:50 AM VA-TOBACCO NEVER USED [facility] [place] [facility] Mar 04, 2018 01:20 PM VA-TOBACCO NEVER USED PA [facility] [place] [facility] May 27, 2017 11:01 AM LIFETIME NON-TOBACCO USER [place] [facility] [place] [facility] May 20, 2016 10:51 AM LIFETIME NON-TOBACCO USER [place] [facility] [place] [facility] May 03, 2015 01:13 PM LIFETIME NON-TOBACCO USER [place] [facility] [place] [facility] Advance Directives: All historical and current Section [...] DIRECTIVE MIGDALIA MILES [facility] [place] [facility] Apr 14, 2019 ADVANCE DIRECTIVE RAFAL BULLARD [facility] C [facility] [place] [facility] Encounter Notes: All associated encounter notes This section contains the clinical notes associated to the Encounter. Date/Time Encounter Note(s) Provider Source Jan 26, 2024 04:09 PM MENTAL HEALTH DIAG NOSTIC STUDY NOTE: LOCAL TITLE: MENTAL HEALTH DIAGNOSTIC STUDY STANDARD TITLE: MENTAL HEALTH DIAGNOSTIC STUDY NOTE DATE OF NOTE: JAN 26, 2024@16:09:19 ENTRY DATE: JAN 26, 2024@16:09:19 AUTHOR: NATHAN KIRK COSIGNER: URGENCY: STATUS: COMPLETED These assessments were completed by PRASANTH FENG via provider direct entry on 01/26/2024 4:08:27 PM. PTSD CHECKLIST (PCL-5) - WEEKLY Patient [...] others: A little bit 14. Feeling numb: Not at all 15. [...] PCL-5 Weekly Total Score (past 180 days): 01/26/2024 9 12/15/2023 10 12/08/2023 9 11/17/2023 4 11/03/2023 10 10/27/2023 8 10/20/2023 9 09/29/2023 7 09/15/2023 4 09/01/2023 7 08/11/2023 Gautam /rosio/ NATHAN KIRK, Ph.D Clinical Psychologist Signed: 01/26/2024 19:10 NATHAN KIRK [place] [facility] [place] [facility] Jan 26, 2024 04:02 PM TELEHEALTH NOTE: LOCAL TITLE: [place] VIDEO CONNECT PSYCHOLOGY NOTE STANDARD TITLE: TELEHEALTH NOTE DATE OF NOTE: JAN 26, 2024@16:02 ENTRY DATE: JAN 26, 2024@16:02:11 AUTHOR: NATHAN KIRK EXP COSIGNER: URGENCY: STATUS: COMPLETED A Video Connect (VVC) Standard Documentation VVC Clinician Resources Only: E911 (Emergency Call Relay Center): [phone] National Veterans Crisis Line - 988 then press #1. [facility] Suicide Coordinator [phone], Ext. [phone]; Back-up Ext. [phone] [place] Police, [place] JOSHUA [phone] Introduction: Visit is being conducted by [place] Video Connect. [place] identified with 2 identifiers: [X] Full Name [ ] Date of [ ] VA ID Card [X] Visual Recognition Emergency Plan: [place] confirmed and/or provided the following information in case of emergency or technology failure. PATIENT PHONE - PHONE NUMBER [CELLULAR] - Is patient phone number correct, if not, enter below: [place]'s phone number: PRASANTH FENG [address], [place], [address] 's present location and address for appointment: [address] [place] [address]. [place] [address] [place]'s emergency contact name and phone number: Layla Feng reported that location is private and safe: Yes Informed Consent: informed of the risks and benefits of Telehealth video care. [place] has the right to refuse video services. If refuses video visit, a [id number] visit will be scheduled. verbalized consent for [...] court of law and presented to a casino floor runner), and DOD access for active-duty service members. Provided Suicide Prevention Hotline number, and other contact numbers as necessary. VISIT DURATION: 26 Minutes DIAGNOSIS: PTSD [employer] STATEMENT OF GOALS/CONCERNS: Reduce irritability, avoidance, work on current challenges (including medical issues, particularly, cancer diagnosis), relationship issues, increase. meaningful activities and remain connected with people he is close to. SESSION FOCUS: Session focused on [place]'s thoughts and emotions regarding upcoming holidays, stating this time of year is difficult for him as things aren't the same as they used to be. He shared that he and his disagree on how to spend the holidays and that his ultimately spends them with her family, and he spends some time with his. [place] stated his adult children are all spread out now so having a family get together is rare. The remainder of the session focused on increased anxiety around the news and current politics. Revisited coping skills, including limiting the amount of time he spends watching the news and other political programs. INTERVENTIONS: Reflective listening and support, focusing on the things he can control, revisited finding balance and what that looks like, remain connected with those who are supportive of him, engage in meaningful activities, increase outside and social activities, and self-care. RISK ASSESSMENT: No suicidal/homicidal ideation reported PLAN FOR FOLLOW-UP: Next session planned for: 02/09/24 at 4:00pm /rosio/ NATHAN KIRK, Ph.D Clinical Psychologist Signed: 01/28/2024 22:35 NATHAN KIRK [place] [facility]
--- OUTSIDE RECORDS SUMMARY | 2024-02-16 09:16 | XMS_ITS | Encounter Summary ---
Author Name [facility] [place] [facility] [place] [facility] [place] Address [address] [place] [address] Care Team Providers Care Salmon Gillnet Vessel Operator Name Role Phone SUBHA VELAZQUEZ Primary [...] GREGORY DIOP Sep 15, 2011 GREGORY PUGA [id number] PAULA GONZALES PATIENT [facility] [place] MEDICARE SU[employer]MEN [employer] Aug 09, 2017 [id number] PAULA GONZALES PATIENT [facility] [place] MEDICARE [employer] [facility] Aug 09, 2017 [id number] PAULA GONZALES PATIENT MEDICARE (WNR) MEDICARE (M) PART A Nov 10, 2019 PART A [id number] PAULA GONZALES PATIENT MEDICARE (WNR) MEDICARE (M) PART B Apr 09, 2010 PART B [id number] PAULA GONZALES PATIENT MEDICARE (WNR) MEDICARE (M) PART B Apr 09, 2010 PART B [id number] PAULA GONZALES PATIENT MEDICARE (WNR) MEDICARE (M) PART B Apr 09, 2010 PART B [id number] PAULA GONZALES PATIENT MEDICARE (WNR) MEDICARE (M) PART A Nov 09, 2009 PART A [id number] PAULA GONZALES PATIENT MEDICARE (WNR) MEDICARE (M) PART A Nov 09, 2009 PART A [id number] [phone] PAULA GONZALES PATIENT Selected Encounter This section includes the information on record at [place] for the Encounter. Date/Time Encounter Type Encounter Description Reason Provider Source Oct 26, 2023 02:27 PM Outpatient Encounter AMB ECG MONITORING ICD-10-CM Z04.89 Encounter for examination and observation for oth reasons ELISABET RED IHMikhail Encounter Template Text not used by [place] Assessments - Encounter Diagnoses This section includes the primary and secondary diagnoses documented for the Encounter. Date/Time Primary/Secondary Diagnosis Diagnosis Name Provider Source Oct 26, 2023 02:28 PM PRIMARY Encounter for examination and observation for oth reasons [facility] Plan of Treatment: Future Appointments (+ 6 months) and Future Tests (+/- 45 days) The Plan of Treatment section includes future care activities for the patient from all [place] treatmentfacilities. This section includes future appointments and [...] 27, 2023 01:00 PM AMBULATORY - PSYCHIATRY [place] [facility] [place] [facility] Nov 03, 2023 01:00 PM AMBULATORY - PSYCHIATRY [place] [facility] [place] [facility] Nov 05, 2023 09:00 AM AMBULATORY - REHAB MEDICIN E [place] [facility] [place] [facility] Nov 05, 2023 12:00 PM AMBULATORY - MEDICINE [place] C [facility] [place] [facility] Nov 10, 2023 01:00 PM AMBULATORY - PSYCHIATRY [place] [facility] [place] [facility] Nov 17, 2023 01:00 PM AMBULATORY - PSYCHIATRY [place] [facility] [place] [facility] Dec 01, 2023 01:00 PM AMBULATORY - PSYCHIATRY [place] [facility] [place] [facility] Dec 08, 2023 09:00 AM AMBULATORY - MEDICINE [place] [facility] [place] [facility] Dec 08, 2023 09:01 AM AMBULATORY - MEDICINE [place] [facility] Dec 08, 2023 01:00 PM AMBULATORY - PSYCHIATRY [place] [facility] [place] [facility] Dec 15, 2023 09:00 AM AMBULATORY - NONE [place] [facility] [place] [facility] Dec 15, 2023 01:00 PM AMBULATORY - PSYCHIATRY [place] [facility] [place] [facility] Dec 29, 2023 04:00 PM AMBULATORY - PSYCHIATRY [place] [facility] [place] [facility] Jan 05, 2024 04:00 PM AMBULATORY - PSYCHIATRY [place] [facility] [place] [facility] Jan 26, 2024 04:00 PM AMBULATORY - PSYCHIATRY [place] [facility] [place] [facility] Feb 09, 2024 04:00 PM AMBULATORY - PSYCHIATRY [place] [facility] [place] [facility] Feb 16, 2024 09:00 AM AMBULATORY - MEDICINE [place] C [facility] [place] [facility] Feb 19, 2024 01:00 PM AMBULATORY - PSYCHIATRY [place] [facility] [place] [facility] Feb 23, 2024 04:00 PM AMBULATORY - PSYCHIATRY [place] [facility] [place] [facility] Mar 01, 2024 04:00 PM AMBULATORY - PSYCHIATRY [place] [facility] [place] [facility] Advance Directives: All historical and current [...] Nov 08, 2019 ADVANCE DIRECTIVE MIGDALIA MILES [place] [facility] [place] [facility] Apr 14, 2019 ADVANCE DIRECTIVE RAFAL BULLARD [place] C [facility] [place] [facility] Encounter Notes: All associated encounter notes This section contains the clinical notes associated to the Encounter. Date/Time Encounter Note(s) Provider Source Oct 26, 2023 02:27 PM CARDIOLOGY CONSULT : LOCAL TITLE: CARDIOLOGY eCONSULT/MEDICAL/CONSULT STANDARD TITLE: CARDIOLOGY CONSULT DATE OF NOTE: OCT 26, 2023@14:27 ENTRY DATE: OCT 26, 2023@14:27:40 AUTHOR: RAPHAEL RED EXP COSIGNER: URGENCY: STATUS: COMPLETED Patient was not seen, the chart was reviewed. Patient had a min HR of 46 bpm, max HR of 171 bpm, and avg HR of 69 bpm. Predominant underlying rhythm was Sinus Rhythm. 20 Supraventricular Tachycardia runs occurred, the run with the fastest interval lasting 8 beats with a max rate of 171 bpm, the longest lasting 11 beats with an avg rate of 105 bpm. Isolated SVEs were frequent (8.5%, [id number]), SVE Couplets were rare (<1.0%, 449), and SVE Triplets were rare (<1.0%, 146). Isolated VEs were rare (<1.0%, 77585), VE Couplets were rare (<1.0%, 96), and VE Triplets were rare (<1.0%, 7). Ventricular Bigeminy and Trigeminy were present. [employer] S/N:[id number] 2023 [employer]. Page 1 of 13 Service Date: 10/19/23 At the time of the triggered events patient was noted to be in Sinus Pat was noted to have frequent episodes of SV Ectopy. Would recommend a cardiac evaluation after echocardiogram Time 15' /rosio/ RAPHAEL RED MD [employer] Attending Signed: 10/26/2023 14:28 RAPHAEL RED [facility]
== END 2024-02-16 09:50 | disposition home or self-care (01) ==
PROVIDERS: PCP Internal Medicine; Visit Provider Urology
DX: Z13.9 Encounter for screening, unspecified (principal)

== ENCOUNTER → 2024-02-16 08:52 | Outpatient (BNVA) | payer OTHER, SELFPAY | PROVIDERS: PCP Internal Medicine; Visit Provider Urology | DX: N40.1 Benign prostatic hyperplasia with lower urinary tract symptoms (principal); C67.9 Malignant neoplasm of bladder, unspecified | CPT/HCPCS: 52000; 81003; 99212 ==

== ENCOUNTER 2024-08-16 08:55 | Outpatient (AMB) | payer OTHER, SELFPAY ==
--- OUTSIDE RECORDS SUMMARY | 2022-10-14 06:45 | XMS_ITS | Continuity of Care Document ---
Author Organization [facility] Address [address] [place] [id number] Phone Care Team Providers Care Cloth Classer Name Role Phone Anupam LIVINGSTON FACS RVT Wood VAZQUEZ Unavailable Unavailable Allergies, Adverse Reactions, Alerts Substance Reaction Status Criticality No Known Allergies Active No Inform ation Medications Medication Instructions Dosage Effective Dates (start - stop) Status Comments doxycycline monohydrate 100 mg capsule Take 1 tab by mouth twice a day starting on day of procedures 2 hours before and continue twice daily for 24 hours - Active Lovenox 60 mg/0.6 mL subcutaneous syringe inject 1 syringe into belly starting 2 hours before procedures and continue daily for 1 month - Active Zetia 10 mg tablet - Active aspirin 81 mg tablet,delayed release - Active Procedures Procedure Date Office/Outpt E&M Established 10 Mins Oct Office/Outpt E&M Established 15 Mins Sep Phleb Veins - Extrem - To 20 Duplex Scan-extrem Veins; Uni/ Varithena, Single Truncal Vein Endovenous Laser, 1st Vein Endovenous laser vein addon Offic/outpt E&m Estab 5 Min Trial - Tele medicine Office/Outpt E&M Established 15 Mins June Duplex Scan-extrem Veins; Uni/ Office/Oupt E&M New Pt 30 Mins Advance Directives Directive Yes / No Effective Date File Name No Information Encounters Encounter Description Practice Location Reason(s) For Visit Diagnoses Date Provider Providers Copied on Encounter Office/Outpt E&M Established 10 Mins Ludwin Dsouza Vein Mandaen MD [facility], [address] [place] [address] Dr Lerner [address] [address], [place], [id number], tel:[phone] [place] Venous insufficiency (chronic) (peripheral)P ain in right leg Sep-0 3 Anupam LIVINGSTON FACS T GEORGE Salazar. [address] [place] [address], [place], [address], [place]. tel:[phone] Referring Provider: Benny Martinez MD S, [address] [place] [address], [facility]. tel:[phone] Office/Outpt E&M Established 15 Mins Ludwin Dsouza Vein Mandaen MD [facility], [address] [place] [address] Dr Lerner [address] [address], [place], [id number], [place] tel:[phone] [place] Chronic venous hypertension w oth comp of r low extrem 3 Anupam LIVINGSTON FACS T GEORGE Salazar. [address] [place] [address], [place], [address], [place]. tel:[phone] Referring Provider: Benny Mayo, [address] [place] [address], [facility]. 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 [address] [place] [address], [place], [place], [id number], [place]. tel:[phone] Referring Provider: Benny Mayo, [address] [place] [address], [facility]. tel:[phone] [facility], [address] [place] [address] [address], [place], [id number], [place] tel:[phone] [place] Encntr for f/u exam aft trtmt for cond oth than malig neoplmVaricos e veins of right lower extremities with pain 3 Anupam LIVIGNSTON FACS T GEORGE Salazar. [address] [place] [address], [place] [address], [place], [address], [place]. tel:[phone] Referring Provider: Benny Martinez MD S, [address] [place] [address], [address]. 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 [address] [place] [address], [place], [address], [place]. tel:[phone] Referring Provider: Benny Martinez MD S, [address] [place] [address], [id number]. 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 [address] [place] [address], [place], [address], [place]. tel:[phone] Referring Provider: Benny Martinez MD S, [address] [place] [address], [address]. tel:[phone] Offic/outpt E&m Estab 5 Min Trial - Telemedicine [facility] MD [facility], [address] [place] [address] [address], [place], [id number], [place] tel:[phone] [place] Chronic venous hypertension w oth comp of r low extrem 3 Anupam Salazar. [address] [place] [address], [place], [address], . tel:[phone] Referring Provider: Benny Martinez MD S, [address] [place] [address], [id number]. tel:[phone] Office/Outpt E&M Established 15 Mins [facility], [address] [place] [address] [address], [place], [id number], [place] tel:[phone] [place] Venous insufficiency (chronic) (peripheral) 3 Anupam Salazar. [address] [place] [address], [place], [address], . tel:[phone] Referring Provider: Benny Martinez MD S, [address] [place] [address], [address]. tel:[phone] [facility], [address] [place] [address] [address], [place], [id number], [place] tel:[phone] [place] Venous insufficiency (chronic) (peripheral)P ain in right leg 3 Anupam Salazar. [address] [place] [address], [place], [address], [place]. tel:[phone] Referring Provider: Benny Martinez MD S, [address] [place] [address], [address]. tel:[phone] Office/Oupt E&M New Pt 30 Mins [facility], [address] [place] [address] [address] [address], [id number], [place] tel:[phone] [place] Venous insufficiency (chronic) (peripheral) 3 Anupam Salazar. [address] [address], [place], [address], [place]. tel:[phone] Referring Provider: Benny Martinez MD S, [address] [place] [address], [address]. tel:[phone] [facility], [address], [place], [id number], tel:[phone] [facility] No Information Anupam LIVINGSTON FACS RVT GEORGE Salazar. [address] [address], [place], [address], [place]. tel:[phone] Referring Provider: Benny Martinez MD S, [address] [place] [address], [address]. tel:[phone] Family History Family Member Type Diagnosis Age At Onset No Information Payers Payer name Insurance type Covered democrat ID Missy shi(s) Medicare MONICA WILLARD [id number] [facility] [id number] Social History Type Description Quantity Date Captured Comments Alcohol Use Details No Caffeine Use Details Unknown Tobacco Use Status Current non-smoker Smoking Status Never smoker Non-Smoking Tobacco Use Details : No Details Available : No Details Available Sex Male Chief Complaint And Reason For Visit No Information Reason For Referral Reason For Referral No Information Plan Of Treatment Date Type Action Status Goal Tobacco cessation counseling completed Goal Tobacco cessation counseling completed Goal Diet education completed Referral Ordered: Weight management: Referral to physician timeframe: 3 Months (related to Body mass index (BMI) 32.0-32.9, adult) ordered History Of Present Illness Encounter Date Complaint History Of Prese nt Illness No Information Functional Status Date Functional Assessmen t No Information Instructions Date Instruction Additional Infor mation Patient education booklet given Related to Chrn Vns Hyprtnsn w/Compl (Pain Edema Swelling); RIGHT Patient education booklet given Related to Chrn Vns Hyprtnsn w/Compl (Pain Edema Swelling); RIGHT Giving Encouragement to exercise Related to Body mass index (BMI) 32.0-32.9, adult Diet education Related to Body mass index (BMI) 32.0-32.9, adult Compression stocking usage as conservative measure Related to Venous insufficiency (chronic) (peripheral) Patient education booklet given Related to Venous insufficiency (chronic) (peripheral) Lifestyle education Related to B brett mass index (BMI) 32.0-32.9, adult Assessments Type Assessment Date assessment Venous insufficiency (chronic) ( peripheral) assessment Pain in right leg Patient Care Teams Name Effective Dates (start - stop) Status Members No Information
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
--- OUTSIDE RECORDS SUMMARY | 2024-08-16 09:13 | XMS_ITS | Data Portability ---
Author Organization [facility] Address [address] [place] [address] Care Team Providers Care Shorts Sifter Name Role Phone SALVADOR VILLAFANA Referring Provider Assessment Encounter Date Assessment Date Assessment LastModified by Organization Details LastModified Time 08/31/2023 08/31/2023 Assessment: Increased resistance on shuttle leg press for single leg with good tolerance demonstrating continued strength improvements. Good knee flexion ROM and symmetric gait observed. Plan: Continue PT @ 2x/wk. Continue per MD recommendations Not available 08/31/2023 12:40:19 09/11/2023 09/11/2023 Assessment: Pt continues to demonstrate good knee flexion ROM. Slight knee extension stiffness and loss of mid-stance TKE with gait. Plan: Continue PT @ 2x/wk. Continue per MD recommendations [email or web address] Not available 09/11/2023 13:56:21 09/14/2023 09/14/2023 Assessment: Pt continues to demonstrate good knee flexion ROM. Slight knee extension stiffness , able to achieve full ext w PROM Plan: Continue PT @ 2x/wk. To finish out sched'd appts and d/c [email or web address] Not available 09/14/2023 12:16:05 09/18/2023 09/18/2023 Assessment: Pt continues to demonstrate slight knee extension stiffness. Good tolerance to all strengthening therex. Plan: Continue PT @ 2x/wk. To finish out sched'd appts and d/c Not available 09/18/2023 11:26:11 09/25/2023 09/25/2023 Assessment: Session kept consistent with previous due to appropriate pt response. Plan: Continue PT @ 2x/wk. To finish out sched'd appts and d/c [email or web address] Not available 09/25/2023 10:34:47 Plan of Treatment Reminders Order Date Submit Date Provider Last Modified By Organization Details Last Modified Time Details Appointments None record ed. Lab None record ed. Referral None record ed. Procedures None record ed. Surgeries None record ed. Imaging None record ed. Medication Orders None record ed. Patient TargetsNo targets recorded. Patient InstructionsNo instructions recorded. Reason for Referral None Reported. Results Created Date Observation Date Name Description Value Unit Range Abnormal Flag Note LastModifiedBy Organization Detail LastModifiedTime 08/25/19 24 08/25/2023 XR, knee, 3 view http:/ [email or web address] ?Encry pted=s hAaTro YD8dLq bEUv6g %2BXZw aYqtaq 0bqfl% 2Fg9IQ a4ajBk vP9nXo QUaueC m3YtLR FvZlgJ JJ8mAn HZtai3 9f4684 AC0Kpb X%2BMV KTeUC8 mr84%3 D INTERFACE [facility] [address], [place], [address], 08/25/2023 14:05:06 08/25/19 24 08/25/2023 XR, knee, 3 view http:/ [email or web address] ?Encry pted=s hAaTro YD8dLq bEUv6g %2BXZw aYqtaq 0bqfl% 2Fg9IQ a4ajBk vP9nXo QUaueC m3YtLR FvZlgJ JJ8mAn HZtai3 1b7905 AC0Kpb X%2BMV KTeUC8 mr84%3 D INTERFACE [facility] [address], [place], [address], 08/25/2023 14:05:08 10/09/19 24 02/27/2021 imagi ng/di agnos tic resul t No observ ation record ed. [email or web address] Not Available 09/11 01:47:25 10/09/19 24 02/27/2021 imagi ng/di agnos tic resul t No observ ation record ed. [email or web address] Not Available 09/11 01:47:33 10/09/19 24 02/27/2021 imagi ng/di agnos tic resul t No observ ation record ed. [email or web address] Not Available 09/11 01:47:34 10/09/19 24 08/15/2020 imagi ng/di agnos tic resul t No observ ation record ed. [email or web address] Not Available 09/11 01:48:30 10/09/19 24 08/15/2020 imagi ng/di agnos tic resul t No observ ation record ed. [email or web address] Not Available 09/11 01:48:33 Result Notes None recorded. Problems Name Problem SNOMED Code Status Onset Date Resolution Date Notes Provider Name and Address Organization Details Recorded Time No complaints 590892930 Active Status : 'A'; Not Available [facility] 4 09:16:17 History of left total knee replacemen t 0721611073425 105 Active 2023 Hong Murguia MD [address] [facility] [address], [place], [address] , [facility] 4 14:46:54 History of right total knee replacemen t 0043629771810 102 Active 2023 Hong Murguia MD [address] [facility] [address], [place], [address] , [facility] 4 13:04:35 Osteoarthr itis of left knee joint 2651653409920 09 Active 2023 Hong Murguia MD [address] [facility] [address], [place], [address] , [facility] 4 13:04:38 Problem Notes None recorded. Procedures Surgical History Date Name Laterality Status Provider Name and Address Organization Details Recorded Time 4 02757 Therapeutic Exercise (1:1) completed Willie Sanabria, PT [address], [place], [address], [facility] 09/14/2023 12:15:45 4 81772 Therapeutic Exercise (1:1) completed Doyle Torres PTA [address], [place], [address], [facility] 09/11/2023 13:08:49 4 CQ - Medicare Services by COMMISSARY OFFICER completed Doyle Torres PTA [address], [place], [address], [facility] 09/11/2023 13:08:49 4 37027 Therapeutic Exercise (1:1) completed Doyle Torres PTA [address], [place], [address], [facility] 08/31/2023 11:56:59 4 CQ - Medicare Services by COMMISSARY OFFICER completed Doyle Torres PTA [address], [place], [address], [facility] 08/31/2023 11:56:59 4 72370 Therapeutic Exercise (1:1) completed Doyle Torres PTA [address], [place], [address], [facility] 08/26/2023 18:00:58 4 CQ - Medicare Services by COMMISSARY OFFICER anibal Torres PTA [address], [place], [address], [facility] 08/26/2023 18:01:03 4 21469 Therapeutic Exercise (1:1) completed Willie Sanabria PT [address], [place], [address], [facility] 08/24/2023 20:42:21 4 62448 Therapeutic Exercise (1:1) completed Doyle Torres PTA [address], [place], [address], [facility] 08/20/2023 16:12:06 4 CQ - Medicare Services by COMMISSARY OFFICER completed Doyle Torres, COMMISSARY OFFICER [address], [place], [address], [facility] 08/20/2023 16:12:06 4 55077 Therapeutic Exercise (1:1) completed Doyle Torres, COMMISSARY OFFICER [address], [place], [address], [facility] 08/17/2023 16:13:14 4 CQ - Medicare Services by COMMISSARY OFFICER completed Doyle Torres, COMMISSARY OFFICER [address], [place], [address], [facility] 08/17/2023 16:13:14 4 75060 Therapeutic Exercise (1:1) completed Doyle Torres, COMMISSARY OFFICER [address], [place], [address], [facility] 08/12/2023 10:22:54 4 CQ - Medicare Services by COMMISSARY OFFICER completed Doyle Torres, COMMISSARY OFFICER [address], [place], [address], [facility] 08/12/2023 11:57:23 4 33790 Therapeutic Exercise (1:1) completed Doyle Torres, COMMISSARY OFFICER [address], [place], [address], [facility] 08/10/2023 18:30:51 4 74808 Therapeutic Exercise (1:1) completed Willie Sanabria, PT [address], [place], [address], [facility] 08/06/2023 09:21:50 4 91604: Manual therapy completed Willie Sanabria, PT [address], [place], [address], [facility] 08/06/2023 09:21:50 4 13156 Therapeutic Exercise (1:1) completed Willie Sanabria, PT [address], [place], [address], [facility] 08/03/2023 15:32:17 4 89665: Manual therapy completed Willie Sanabria, PT [address], [place], [address], [facility] 08/03/2023 13:04:58 4 17262 Therapeutic Exercise (1:1) completed Doyle Torres PTA [address], [place], [address], [facility] 07/31/2023 16:20:51 4 60139 Therapeutic Exercise (1:1) completed Willie Sanabria, PT [address], [place], [address], [facility] 07/29/2023 06:04:46 4 81228 Therapeutic Exercise (1:1) completed Doyle Torres PTA [address], [place], [address], [facility] 07/24/2023 16:23:31 4 CQ - Medicare Services by COMMISSARY OFFICER completed Doyle Torres PTA [address], [place], [address], [facility] 07/24/2023 13:04:19 4 44189 Therapeutic Exercise (1:1) completed Doyle Torres PTA [address], [place], [address], [facility] 07/21/2023 16:01:06 4 CQ - Medicare Services by COMMISSARY OFFICER completed Doyle Torres PTA [address], [place], [address], [facility] 07/21/2023 16:33:43 4 22478 Therapeutic Exercise (1:1) completed Willie Sanabria, PT [address], [place], [address], [facility] 07/15/2023 20:58:59 4 68011: Low complexity PT Eval completed Willie Pyser, PT [address], [place], [address], [facility] 07/15/2023 20:59:06 4 G8417 BMI Above Upper Parameters, F/U Documented completed Willie Pyser, PT [address], [place], [address], [facility] 07/15/2023 21:00:08 4 G8427 Current Medication Documented completed Willie Pyser, PT [address], [place], [address], [facility] 07/15/2023 21:00:11 4 82883 Therapeutic Exercise (1:1) completed Willie Pyser, PT [address], [place], [address], [facility] 07/08/2023 20:29:28 4 51730: Low complexity PT Eval completed Willie Pyser, PT [address], [place], [address], [facility] 07/08/2023 20:29:30 4 G8417 BMI Above Upper Parameters, F/U Documented completed Willie Pyser, PT [address], [place], [address], [facility] 07/08/2023 20:44:34 4 G8427 Current Medication Documented completed Willie Pyser, PT [address], [place], [address], [facility] 07/08/2023 20:44:37 Imaging Results None recorded. Procedure Notes None recorded. Medical Equipment None Reported. Allergies No known drug allergies Medications Name Sig Start Date Stop Date Status Note LastModified by Organization Details LastModified Time celecoxib 200 mg capsule TAKE 1 CAPSULE BY MOUTH DAILY DIRECTED FOR 33 DAYS. START 3 DAYS BEFORE SURGERY active Not Available Not Available No t Available aspirin 325 mg tablet TAKE 1 TABLET BY MOUTH TWICE A DAY. START AFTER SURGERY 04/30 completed Not Available Not Available Not Available ondansetron HCl 4 mg tablet TAKE 1 TABLET BY MOUTH THREE TIMES A DAY DIRECTED FOR 7 DAYS active Not Available Not Available No t Available ciprofloxac in 500 mg tablet TAKE 1 TABLET BY MOUTH TWICE DAILY FOR 5 DAYS active Not Available Not Available No t Available tramadol 50 mg tablet TAKE 1 TO 2 TABLETS BY MOUTH EVERY 6 HOURS NEEDED FOR MILD PAIN active Not Available Not Available No t Available sildenafil 100 mg tablet TAKE 1 TABLET ORALLY DAILY NEEDED 60 MINUTES BEFORE INTENDED ACTIVITY active Not Available Not Available No t Available acetaminoph en ER 650 mg tablet,exte nded release TAKE 1 TABLET 3 TIMES A DAY BY ORAL ROUTE DIRECTED FOR 33 DAYS. active Not Available Not Available No t Available aspirin 325 mg tablet,gustavo yed release TAKE 1 TABLET BY MOUTH TWICE A DAY DIRECTED active Not Available Not Available No t Available meclizine 25 mg tablet TAKE 1 TABLET BY MOUTH 3 TIMES A DAY NEEDED FOR DIZZINESS active Not Available Not Available No t Available doxycycline monohydrate 100 mg capsule PLEASE SEE ATTACHED FOR DETAILED DIRECTION S active Not Available Not Available No t Available pantoprazol e 40 mg tablet,gustavo yed release TAKE 1 TABLET BY MOUTH DAILY. START DAY OF SURGERY active Not Available Not Available No t Available erythromyci n 5 mg/gram (0.5 %) eye ointment APPLY TO LEFT UPPER LID THREE TIMES A DAY active Not Available Not Available No t Available docusate sodium 100 mg capsule TAKE 1 CAPSULE BY MOUTH TWICE A DAY DIRECTED FOR 30 DAYS active Not Available Not Available No t Available oxycodone 5 mg tablet TAKE 1 TABLET BY MOUTH EVERY 4 HOURS FOR 7 DAYS active Not Available Not Available No t Available enoxaparin 60 mg/0.6 mL subcutaneou s syringe INJECT 1 SYRINGE INTO BELLY STARTING 2 HOURS BEFORE PROCEDURE S AND CONTINUE DAILY FOR 1 MONTH active Not Available Not Available No t Available Vitals None Recorded Social History None recorded. Functional Status None recorded. Mental Status None recorded. Family History Nothing Reported. Medical History No medical history recorded. Past Encounters Encounter ID Performer Location Encounter Start Date Encounter Closed Date Diagnosis/Indication Diagnosis SNOMED-CT Code Diagnosis ICD10 Code Diagnosis Note [id number] MD [facility] [address] [place] [address] 05/01/2023 11:05:28 05/26/2023 15:35:42 History of right total knee replacement 7895093767 923412 Z96.651 Osteoarthr itis of left knee joint 6800924243 61016 M17.12 [id number] Suzan Carnes, BENNY [facility] [address] [place] [address] 07/07/2023 10:03:43 07/28/2023 10:31:40 Osteoarthritis of left knee joint 9787209658 96358 M17.12 [id number] Hong Murguia MD [facility] [address] [place] [address] 07/07/2023 10:48:19 07/28/2023 10:30:44 Osteoarthritis of left knee joint 4380167232 89529 M17.12 [id number] Willie Sanabria, PT [facility] [address] [place] [address] 07/10/2023 08:34:39 07/10/2023 09:11:20 Osteoarthritis of knee 983883301 M17.12 [id number] Michelle Chen PA-C [facility] [address] [place] [address] 07/15/2023 10:08:34 08/12/2023 10:45:12 Pain of left knee joint 2716306806 40734 M25.562 Postoperative visit 1836 74617 Z48.89 Knee joint prosthesis present 4475556302 02 Z96.687 [id number] Willie Sanabria, PT [facility] [address] [place] [address] 07/16/2023 14:26:14 07/16/2023 15:09:01 History of left total knee replacement 8381189908 845779 Z96.652 Z47.1 [id number] Doyle Torres, COMMISSARY OFFICER [facility] [address] [place] [address] 07/21/2023 15:54:09 07/21/2023 17:00:26 History of left total knee replacement 6958445640 801639 Z96.652 Z47.1 [id number] Doyle Torres, COMMISSARY OFFICER [facility] [address] [place] [address] 07/24/2023 15:54:04 07/24/2023 16:23:30 History of left total knee replacement 4235743437 930478 Z96.652 Z47.1 [id number] Nathaniel Barnes PA-C [facility] [address] [place] [address] 07/28/2023 10:25:06 08/24/2023 13:10:40 History of left total knee replacement 4484294030 142595 Z96.733 [id number] Willie Pyser, PT [facility] [address] [place] [address] 07/29/2023 14:42:38 07/29/2023 16:48:53 History of left total knee replacement 2131541234 209119 Z96.652 Z47.1 [id number] Willie Pyser, PT [facility] [address] [place] [address] 08/03/2023 10:01:12 08/03/2023 11:00:39 History of left total knee replacement 3615299545 074798 Z96.652 Z47.1 [id number] Doyle Torres, COMMISSARY OFFICER [facility] [address] [place] [address] 07/31/2023 15:40:14 07/31/2023 16:18:16 History of left total knee replacement 4234892944 884391 Z96.652 Z47.1 [id number] Willie Pyser, PT [facility] [address] [place] [address] 08/07/2023 07:57:16 08/07/2023 08:41:31 History of left total knee replacement 6893161306 122328 Z96.652 Z47.1 [id number] Doyle Torres, COMMISSARY OFFICER [facility] [address] [place] [address] 08/10/2023 17:49:19 08/10/2023 18:07:01 History of left total knee replacement 5810541911 431433 Z96.652 Z47.1 [id number] Doyle Torres, COMMISSARY OFFICER [facility] [address] [place] [address] 08/12/2023 10:53:11 08/12/2023 12:20:44 History of left total knee replacement 0767018884 092020 Z96.652 Z47.1 [id number] Doyle Torres, COMMISSARY OFFICER [facility] [address] [place] [address] 08/17/2023 16:02:58 08/17/2023 16:38:30 History of left total knee replacement 5216666751 396250 Z96.652 Z47.1 [id number] Doyle Torres, COMMISSARY OFFICER [facility] [address] [place] [address] 08/20/2023 15:46:43 08/20/2023 17:14:26 History of left total knee replacement 6752295837 404413 Z96.652 Z47.1 [id number] Willie Sanabria, PT [facility] [address] [place] [address] 08/24/2023 17:04:53 08/24/2023 18:02:35 History of left total knee replacement 8677690058 875928 Z96.652 Z47.1 [id number] Hong Murguia, [facility] [address] [place] [address] 08/25/2023 13:46:09 08/25/2023 15:56:57 History of left total knee replacement 6443965208 485182 Z96.701 [id number] Doyle Torres, COMMISSARY OFFICER [facility] [address] [place] [address] 08/26/2023 16:48:50 08/26/2023 17:34:59 History of left total knee replacement 7200359613 182989 Z96.652 Z47.1 [id number] Doyle Torres, COMMISSARY OFFICER [facility] [address] [place] [address] 08/31/2023 11:20:28 08/31/2023 12:10:13 History of left total knee replacement 1254393871 948913 Z96.652 Z47.1 [id number] Doyle Torres, COMMISSARY OFFICER [facility] [address] [place] [address] 09/11/2023 13:06:06 09/11/2023 13:43:37 History of left total knee replacement 1059900211 486985 Z96.652 Z47.1 [id number] Willie Sanabria, PT [facility] [address] [place] [address] 09/14/2023 10:23:03 09/14/2023 11:27:04 History of left total knee replacement 9982454962 994512 Z96.652 Z47.1 [id number] Doyle Brian, COMMISSARY OFFICER [facility] [address] [place] [address] 09/18/2023 10:26:43 09/18/2023 12:56:49 History of left total knee replacement 4690452793 138478 Z96.652 Z47.1 [id number] Doyle Torres, COMMISSARY OFFICER [facility] [address] [place] [address] 09/25/2023 09:18:49 09/25/2023 10:05:03 History of left total knee replacement 1043647376 104634 Z96.652 Z47.1 Health Concerns Section Related Observation LastModified by Organization Detai ls LastModified Time None Recorded Concern Status LastModified by Organization Details LastModified Time None Recorded Advance Directives Directive None Recorded Payers Insurance Date Sequence Insurance Name Policy Number Policy Bryson Covered Member ID Bryson Member ID Guarantor Name 09/29/2023 2 [facility] - PLAN 1 (MEDICARE SUPPLEMENT) [id number] 1 Atul Feng [id number] Atul Feng 09/24/2023 1 [place] Atul Feng [id number] Atul Feng 09/24/2023 [employer] CLAIMS (MEDICARE DME REGION A) Atul Feng [id number] Atul Feng Notes Date Note Type Note Provider Name and Address Organization Details Recorded Time 08/31/2023 text/html Pt reports he still has no px. Doyle Torres COMMISSARY OFFICER [address], [place], [address], [facility] 08/31/2023 12:40:56 09/11/2023 text/html Pt reports he still has no px. Doyle Torres, COMMISSARY OFFICER [address], [place], [address], [facility] 09/11/2023 13:56:44 09/14/2023 text/html Pt reports he still has no px. Did overdo it LV w R SC squats, was mod'ly sore, better now, back to baseline Willie Sanabria, PT [address], [place], [address], [facility] 09/14/2023 12:16:27 09/18/2023 text/html Pt reports he still has no px. Doyle Torres, COMMISSARY OFFICER [address], [place], [address], [facility] 09/18/2023 11:26:51 09/25/2023 text/html Pt reports he still has no px. Doyle Torres, COMMISSARY OFFICER [address], [place], [address], [facility] 09/25/2023 10:35:09
--- OUTSIDE RECORDS SUMMARY | 2024-08-16 09:13 | XMS_ITS | Clinical Summary ---
Author Organization [facility] Address [address] [place] [address] Care Team Providers Care Tobacco Grader Name Role Phone Unavailable Primary Care Provider Unavailabl e Allergies No known active allergies Medications Medication Sig Dispensed Refills Start Date End Date Status aspirin EC 81 MG tablet Take 81 mg by mouth daily. 0 Active Social History Tobacco Use Types Packs/Day Years Used Date Smoking Tobacco: Never Smokeless Tobacco: Never Sex and Gender Information Value Date Recorded Sex Assigned at Male 02/05/2018 11:03 AM EST Gender Identity Not on file Sexual Orientation Not on file Last Filed Vital Signs Vital Sign Reading Time Taken Comments Blood Pressure 120/78 05/21/2018 2:12 PM EDT Pulse - - Temperature - - Respiratory Rate - - Oxygen Saturation - - Inhaled Oxygen Concentration - - Weight 102.5 kg (226 lb) 05/21/2018 2:12 PM EDT Height - - Body Mass Index - - Plan of Treatment Health Maintenance Due Date Last Done Comments Hepatitis C Screening 1944 COVID-19 Vaccine (#1) 06/06/1945 Depression Screening 1956 Preventative Health Evaluation 1962 DTap / Tdap / Td (1 - Tdap) 12/07/1963 Shingrix-Zoster Vaccine (1 of 2) 1994 Fall Risk Assessment 2009 Pneumococcal Vaccine (1 of 1 - PCV) 2009 RSV Adult > 60+ Yrs or Pregn ant (1 - 1-dose 75+ series) 12/07/2019 Influenza Vaccine (#1) 2024 Hepatitis B Vaccines Aged Out No long er eligible based on patient's age to complete this topic RSV Ped < 20 months Aged Out No longe r eligible based on patient's age to complete this topic
== END 2024-08-16 09:37 | disposition home or self-care (01) ==
LOC: HO.HUSH 08:55
PROVIDERS: PCP Internal Medicine; Visit Provider Urology
DX: N39.0 Urinary tract infection, site not specified (principal); C67.9 Malignant neoplasm of bladder, unspecified; R39.15 Urgency of urination; R35.1 Nocturia; Z13.9 Encounter for screening, unspecified
CPT/HCPCS: 52000; 99214

== ENCOUNTER 2024-08-16 08:55 | Outpatient (REF) | payer OTHER, SELFPAY | END 2024-08-16 08:56 | disposition home or self-care (01) | LOC: HO.LAB 08:55 | PROVIDERS: PCP Internal Medicine; Visit Provider Urology | DX: N39.0 Urinary tract infection, site not specified (principal); C67.9 Malignant neoplasm of bladder, unspecified | CPT/HCPCS: 52000; 81003; 87086; 87088; 87186; 99212 ==